=== PATIENT | male | born 1945 | race Caucasian/White ===

== ENCOUNTER → 2017-10-11 10:39 | Outpatient (CLI) | payer MEDICARE, OTHER, SELFPAY ==
--- NOTE | 2017-10-11 10:47 | CDU_ITS ---
Reason For Study: Carotid stenosis Rt. Velocities/BP Lt. Velocities/BP Prox CCA 61.6/12.3 cm/sec. Prox CCA 87.4/25.8 cm/sec. Mid CCA 58.0/12.3 cm/sec. Mid CCA 79.7/24.0 cm/sec. Dist CCA 53.9/11.7 cm/sec. Dist CCA 77.4/21.7 cm/sec. Prox ECA 103.0/18.2 cm/sec. Prox ICA 146.0/58.9 cm/sec. Rt. Vert. 58.0/21.1 cm/sec. Mid ICA 141.0/56.0 cm/sec. Dist ICA 102.0/37.5 cm/sec. Lt. ICA/CCA = 1.8. Prox ECA 93.8/18.2 cm/sec. Lt. Vert. 34.0/11.7 cm/sec. Right Extracranial There is intimal thickening but no significant atherosclerotic plaque noted in the right common carotid artery. The right internal carotid artery is occluded. There is heterogeneous, irregular atherosclerotic plaque noted in the right external carotid artery. Antegrade flow is noted in the right vertebral artery. Left Extracranial There is intimal thickening but no significant atherosclerotic plaque noted in the left common carotid artery. There is heterogeneous, irregular atherosclerotic plaque noted in the left internal carotid artery. There is intimal thickening but no significant atherosclerotic plaque noted in the left external carotid artery. Antegrade flow is noted in the left vertebral artery. Procedure Carotid Duplex [id number]. Exam performed in department. Interpretation Summary Moderate (50-69%) stenosis left extracranial internal carotid. Flow within the vertebral arteries is antegrade bilaterally. Right internal carotid artery is occluded. Ordering Physician: El Durham Referring Physician: Heike Payne M.D. Performed By: Kayleen Jhaveri RVT
== END ==
PROVIDERS: Family Provider Internal Medicine; PCP Internal Medicine
DX: I65.23 Occlusion and stenosis of bilateral carotid arteries (principal)
CPT/HCPCS: 93880

== ENCOUNTER → 2018-09-17 10:17 | Outpatient (CLI) | payer MEDICARE, OTHER, SELFPAY ==
--- NOTE | 2018-09-17 10:30 | CDU_ITS ---
Reason For Study: Stenosis/Occlussion Rt. Velocities/BP Lt. Velocities/BP Prox CCA 54.6/5.89 cm/sec. Prox CCA 80.3/21.1 cm/sec. Mid CCA 50.7/7.86 cm/sec. Mid CCA 80.3/24.6 cm/sec. Dist CCA 34.2/6.29 cm/sec. Dist CCA 58.6/17.6 cm/sec. Prox ECA 94.4/9.38 cm/sec. Prox ICA 142/47.1 cm/sec. Rt. Vert. 78.6/18.8 cm/sec. Mid ICA 151/50.1 cm/sec. Dist ICA 101/35.4 cm/sec. Lt. ICA/CCA = 1.88. Prox ECA 90.9/13.5 cm/sec. Lt. Vert. 54.6/13 cm/sec. Right Extracranial There is intimal thickening but no significant atherosclerotic plaque noted in the right common carotid artery. The right internal carotid artery is occluded. There is heterogeneous, irregular atherosclerotic plaque noted in the right external carotid artery. Antegrade flow is noted in the right vertebral artery. Left Extracranial There is intimal thickening but no significant atherosclerotic plaque noted in the left common carotid artery. There is heterogeneous, irregular atherosclerotic plaque noted in the left internal carotid artery. There is intimal thickening but no significant atherosclerotic plaque noted in the left external carotid artery. Antegrade flow is noted in the left vertebral artery. Procedure Carotid Duplex [id number]. Exam performed in department. Interpretation Summary 1. Right ICA occluded. Moderate (50-69%) stenosis left extracranial internal carotid. Flow within the vertebral arteries is antegrade bilaterally. Ordering Physician: ALISA HARRIS Referring Physician: Heike Payne M.D. Performed By: Kayleen Jhaveri RVT and Student
== END ==
PROVIDERS: Family Provider Internal Medicine; PCP Internal Medicine
DX: I65.23 Occlusion and stenosis of bilateral carotid arteries (principal)
CPT/HCPCS: 93880

== ENCOUNTER → 2019-01-10 14:05 | Outpatient (CLI) | payer MEDICARE, OTHER, SELFPAY ==
[2019-01-01 13:22] VITALS: BMI 24.3
[2019-01-07 08:43] LABS: ALB/GLOB Ratio 1.3 RATIO (0.9-2.4); AST(SGOT) 13 U/L (15-37); Alanine Aminotransfer ALT/SGPT 17 U/L (16-61); Albumin, Serum 3.8 g/dL (3.2-5.0); Alkaline Phosphatase 88 U/L (45-117); Anion Gap 5 (5-15); BUN 13 mg/dL (7-18); BUN/Creat Ratio 12.7 RATIO (10-20); Calcium,Total 8.4 mg/dL (8.5-10.1); Chloride 107 mmol/L (98-107); Cholesterol 115 mg/dL (200); Creatinine, Serum 1.02 mg/dL (0.70-1.30); EST Glomerular Filtration Rate 76 mL/min (>60); Est Glom Filt Rate - Afr Amer 92 mL/min (>60); Free T3 2.5 pg/mL (2.18-3.98); Glucose 101 mg/dL (74-106); High Density Lipoprotein 53 mg/dL; Potassium 3.5 mmol/L (3.5-5.1); Protein, Total 6.8 g/dL (6.4-8.2); Sodium Level 142 mmol/L (136-145); T4 Total, Thyroxin 9.2 ug/dL (4.5-12.1); Thyroid Stim Hormone (TSH) 3.86 uIU/mL (0.358-3.74); Triglycerides 54 mg/dL; Very Low Density Lipoprotein 11 mg/dL (5-40)
--- NOTE | 2019-01-10 14:08 | CT_ITS ---
STUDY: CTA CHEST REASON FOR EXAM: Male, 74 years old. Ascending aortic aneurysm RADIATION DOSAGE (If Supplied By Facility): CTDIvol = ( 12.30 ) mGy, DLP = ( 423.90 ) mGycm TECHNIQUE: The examination was performed with the intravenous administration of 100ML IV Isovue 370. Post-processing of the angiographic images was performed, with multiplanar reformation and 3D reconstruction. Individualized dose optimization techniques were used for this CT. COMPARISON: Prior chest radiograph of October 14, 2015 FINDINGS: Normal enhancement of the main pulmonary artery and right and left pulmonary arteries. Normal enhancement of the bilateral peripheral pulmonary arteries. There is no demonstrated pulmonary embolism. Mild calcified plaque and elongation of the thoracic aorta. The diameter of the ascending aorta is 4 cm. The diameter of the mid arch is 2.8 cm. The diameter of the posterior arch/proximal ascending aorta is 2.8 cm. Negative for aneurysmal dilatation of the remaining descending aorta There is no demonstrated aortic dissection. Normal heart and pericardium. Coronary calcifications. Normal mediastinum. Normal hilar regions. Diffuse emphysematous changes changes. Multifocal areas of linear/curvilinear scarring at the lung bases not substantially changed on the right. Reduced linear opacities at the left lung base with a similar pattern. Negative for new consolidation or pleural effusion. Negative for pulmonary nodules or masses. Normal chest wall structures. There are degenerative changes of thoracic spine. Numerous stable simple cysts of the liver. CT/CTA Chest W/WO Contrast IMPRESSION: Stable appearance of the aneurysmal dilatation of the ascending aorta. The maximum diameter is 4 cm and is unchanged on [id number] comparison to the prior exam. Note that the prior measurement of 4.5 x 3.9 cm was exaggerated by motion artifact. Coronary calcifications. Negative for pulmonary embolus. Generalized emphysematous changes and chronic linear changes of the bilateral lower lobes similar to the prior exam. Negative for new consolidation, pleural effusion, pulmonary nodules or masses. Stable multiple simple cysts of the liver. Electronically Signed: Martine Almazan MD at 16:14 EDT , Service support ,
== END ==
PROVIDERS: Family Provider Internal Medicine; PCP Internal Medicine; Referring Provider Specialist; Visit Provider Specialist
DX: I71.2 Thoracic aortic aneurysm, without rupture (principal); E78.5 Hyperlipidemia, unspecified; E03.9 Hypothyroidism, unspecified; Z95.5 Presence of coronary angioplasty implant and graft
CPT/HCPCS: 36415; 71275; 80053; 80061; 84436; 84443; 84481; Q9967

== ENCOUNTER → 2020-06-07 10:47 | Outpatient (CLI) | payer MEDICARE, OTHER, SELFPAY ==
[2019-01-01 13:22] VITALS: BMI 24.3
--- NOTE | 2020-06-07 10:52 | CDU_ITS ---
Reason For Study: CAROTID STENOSIS Rt. Velocities/BP Lt. Velocities/BP Prox CCA 57.0/8.7 cm/sec. Prox CCA 81.2/19.7 cm/sec. Mid CCA 53.7/9.8 cm/sec. Mid CCA 95.2/20.4 cm/sec. Dist CCA 52.6/10.9 cm/sec. Dist CCA 77.6/13.8 cm/sec. KNOWN SAÚL OCCLUSION. Prox ICA 138.6/34.5 cm/sec. Prox ECA 112.5/14.2 cm/sec. Mid ICA 149.0/43.1 cm/sec. Rt. Vert. 50.0/16.9 cm/sec. Dist ICA 206.9/53.3 cm/sec. Lt. ICA/CCA = 206.9/95.2=2.2. Prox ECA 96.3/9.5 cm/sec. Lt. Vert. 59.1/13.8 cm/sec. Right Extracranial There is intimal thickening but no significant atherosclerotic plaque noted in the right common carotid artery. The right internal carotid artery is occluded (since 2010). There is no significant atherosclerotic plaque noted in the right external carotid artery. Antegrade flow is noted in the right vertebral artery. There is heterogeneous, irregular atherosclerotic plaque noted in the right bulb. Left Extracranial There is intimal thickening but no significant atherosclerotic plaque noted in the left common carotid artery. There is heterogeneous, irregular atherosclerotic plaque noted in the left internal carotid artery. There is no significant atherosclerotic plaque noted in the left external carotid artery. Antegrade flow is noted in the left vertebral artery. There is heterogeneous, irregular atherosclerotic plaque noted in the left bulb. Procedure Carotid Duplex [id number]. The exam was diagnostic. Exam performed in department. Interpretation Summary The right internal carotid artery appears to be totally occluded. Moderate (50-69%) stenosis left extracranial internal carotid. Flow within the vertebral arteries is antegrade bilaterally. Ordering Physician: ALISA HARRIS Referring Physician: Heike Payne Performed By: Ani Deras, DALILA, RVT
== END ==
PROVIDERS: PCP Internal Medicine
DX: I65.23 Occlusion and stenosis of bilateral carotid arteries (principal)
CPT/HCPCS: 93880

== ENCOUNTER → 2020-12-24 13:19 | Outpatient (CLI) | payer MEDICARE, OTHER, SELFPAY ==
[2019-01-01 13:22] VITALS: BMI 24.3
--- NOTE | 2020-12-24 13:22 | CT_ITS ---
STUDY: CTA CHEST REASON FOR EXAM: Male, 75 years old. TAA -- 500 mL NS Bolus [address] RADIATION DOSAGE (If Supplied By Facility): CTDIvol = ( 21.45 ) mGy, DLP = ( 1047.63 ) mGycm TECHNIQUE: The examination was performed with the intravenous administration of IV 75mL Isovue-300. Post-processing of the angiographic images was performed, with multiplanar reformation and 3D reconstruction. Individualized dose optimization techniques were used for this CT. COMPARISON: 01/10/2019 FINDINGS: Normal enhancement of the main pulmonary artery and right and left pulmonary arteries. Normal enhancement of the bilateral peripheral pulmonary arteries. There is no demonstrated pulmonary embolism. Normal thoracic aorta and visualized great vessels. There is no demonstrated aortic dissection. Normal heart and pericardium. Sternal cerclage wires and vascular clips are present from a prior sternotomy and coronary artery bypass graft procedure (CABG). Normal mediastinum. Normal hilar regions. Normal visualized trachea and bronchi. The lungs are well expanded. Mild emphysematous changes. Mild bibasilar linear scarring. No noncalcified nodule or mass. Normal pleura. Normal chest wall structures. Normal osseous structures. Normal visualized upper abdomen. CT/CTA Chest W/WO Contrast IMPRESSION: Normal CTA chest examination, without a demonstrated pulmonary embolism or arterial dissection. No change from 01/10/2019 Electronically Signed: Bradley Cantor MD at 12:29 EDT Tel , Service support ,
[2020-12-24 13:44] VITALS: BP 133/78; PULSE 58; RESP 18; O2SAT 93; BMI 26.5
== END ==
PROVIDERS: PCP Internal Medicine; Referring Provider Specialist; Visit Provider Specialist
DX: Z01.812 Encounter for preprocedural laboratory examination (principal); I71.2 Thoracic aortic aneurysm, without rupture
CPT/HCPCS: 71275; J7040; Q9967

== ENCOUNTER → 2021-01-26 07:03 | Outpatient (CLI) | payer MEDICARE, OTHER, SELFPAY ==
[2020-12-28 10:57] VITALS: BMI 26.5
--- NOTE | 2021-01-26 07:05 | ART_ITS ---
Reason For Study: decreased pedal pulses Procedure A bilateral lower extremity continuous wave Doppler with analog waveform analysis,segmental pressures,and ankle brachial indexes without exercise. Left Segmental Pressures Left brachial= 143mmHg. Left posterior tibial artery = 147mmHg. Left dorsalis pedis artery = 138mmHg. The left dorsalis pedis waveforms are triphasic. The left posterior tibial artery waveforms are triphasic. Right Segmental Pressures Right brachial= 146mmHg. Right posterior tibial artery = 148mmHg. Right dorsalis pedis artery = 137mmHg. The right dorsalis pedis waveforms are triphasic. The right posterior tibial artery waveforms are triphasic. Indices The right ankle brachial index by the posterior tibial artery is 1.01. The right ankle brachial index by the dorsalis pedis is .94. The left ankle brachial index by the posterior tibial artery is 1.01. The left ankle brachial index by the dorsalis pedis is .95. VL/Lower Ext Art Exam w/o Exercis Interpretation Summary Bilateral lower extremities with triphasic flow noted at the ankle with an AMANDA 1.01 bilaterally. Ordering Physician: Shilpi Ha Performed By: MAI WILSON RVT
--- NOTE | 2021-01-26 14:38 | STRESSREP_ITS ---
Stress Test Report Date: 01-26-2021 Procedure: Pharmacologic stress nuclear imaging study Indications: CAD; PCI; PAD Consent: Per the patient Procedure: The patient underwent pharmacologic (Regadenoson 0.4mg ) evaluation with a peak heart rate of 99 beats per minute (67%predicted maximal heart rate) and a peak blood pressure of 140/82 mmHg. The baseline ECG demonstrated sinus rhythm; incomplete right bundle branch block. The peak pharmacologic ECG demonstrated no obvious ECG changes. There were no cardiac dysrhythmias pretest, during pharmacologic infusion, or recovery. There was no complaint of chest discomfort during pharmacologic infusion or recovery. The examination was discontinued secondary to completion of protocol. Impression: 1. Pharmacologic (Regadenoson) evaluation 2. Peak pharmacologic ECG with no obvious ECG changes. 3. There were no cardiac dysrhythmias pretest, during pharmacologic infusion, or recovery. 4. Nuclear images pending Myocardial perfusion imaging study: Technique: The patient was injected with 11.0 millicuries of technetium 99m Cardiolite and subsequently rest SPECT Cardiolite nuclear imaging was obtained in the horizontal long, vertical long, and short axis views. The patient underwent pharmacologic (Regadenoson) evaluation with a peak heart rate of 99 beats per minute (67% percent predicted maximal heart rate) and a peak blood pressure of 140/82 mmHg. The patient was injected with 32.8 millicuries of technetium 99m Cardiolite and subsequently stress SPECT Cardiolite nuclear imaging was obtained in the horizontal long, vertical long, and short axis views. A gated Cardiolite study at peak stress was obtained. Interpretation: Rest and stress SPECT Cardiolite nuclear imaging status post realignment, normalization, and attenuation correction demonstrate relative uniform tracer uptake and myocardial perfusion appearing within normal limits. There is end systolic thickening and brightening. The gated Cardiolite study demonstrates myocardial thickening and inward wall motion. The reported LVEF is 69%. Impression: 1. Rest and stress SPECT Cardiolite nuclear imaging demonstrate relative uniform tracer uptake and myocardial perfusion appearing within normal limits. 2. The gated Cardiolite study reports an LVEF of 69%. This note was generated with [employer] software. It may contain incorrect words, spelling, and punctuation that were not noted in checking the note before signing.
== END ==
PROVIDERS: PCP Internal Medicine; Referring Provider Physician Assistant Medical; Visit Provider Physician Assistant Medical
DX: I25.10 Atherosclerotic heart disease of native coronary artery without angina pectoris (principal); I73.9 Peripheral vascular disease, unspecified; I10 Essential (primary) hypertension; E78.5 Hyperlipidemia, unspecified; Z95.5 Presence of coronary angioplasty implant and graft
CPT/HCPCS: 78452; 93017; 93923; A9500; A4216; J2785

== ENCOUNTER → 2021-04-12 09:45 | Outpatient (CLI) | payer OTHER, MEDICARE, SELFPAY ==
--- NOTE | 2021-04-12 09:47 | US_ITS ---
STUDY: RENAL ULTRASOUND - COMPLETE REASON FOR EXAM: Male, 76 years old. CKD TECHNIQUE: Ultrasound evaluation of the kidneys was performed with real-time and static john-scale imaging. COMPARISON: None. FINDINGS: RIGHT KIDNEY: Normal location of the right kidney, which is normal in size. The right kidney measures 9.7 cm x 5.7 cm x 5.6 cm. There is a normal cortex of the right kidney. The renal cortex measures 1.4 cm. There are 2 right renal cysts. The larger measures 1.2 cm x 1.2 cm x 1.4 cm. There are no right renal calculi. There is no right hydronephrosis. DISTAL RIGHT URETER: There is non-visualization of the distal right ureter. There is no demonstrated right ureterovesical junction calculus. There is a visualized right ureteral jet. LEFT KIDNEY: Normal location of the left kidney, which is normal in size. The left kidney measures 11.2 cm x 5.2 cm x 4.6 cm. There is a normal cortex of the left kidney. The renal cortex measures 1 cm. There is no left renal mass or cyst. There are no left renal calculi. There is an extra-renal pelvis of the left kidney. There is no distention of the renal calyces. DISTAL LEFT URETER: There is non-visualization of the distal left ureter. There is no demonstrated left ureterovesical junction calculus. There is a visualized left ureteral jet. BLADDER: The distended urinary bladder has a volume of 140 ml. There is a normal wall thickness of the distended urinary bladder. There is no demonstrated mass within the urinary bladder. There are no demonstrated bladder calculi. US/Kidney and Bladder IMPRESSION: There are 2 small right renal cysts. Electronically Signed: Alexsander Mcclain MD at 13:32 EDT , Service support ,
== END ==
PROVIDERS: PCP Internal Medicine
DX: N18.30 Chronic kidney disease, stage 3 unspecified (principal)
CPT/HCPCS: 76770

== ENCOUNTER → 2021-09-08 10:42 | Outpatient (CLI) | payer MEDICARE, OTHER, SELFPAY ==
--- NOTE | 2021-09-08 10:52 | CDU_ITS ---
Reason For Study: Stenosis Rt. Velocities/BP Lt. Velocities/BP Prox CCA 53.9/8.2 cm/sec. Prox CCA 63.9/16 cm/sec. Mid CCA 42.1/8.2 cm/sec. Mid CCA 66.3/21.2 cm/sec. Dist CCA 35.5/8 cm/sec. Dist CCA 56.1/18.6 cm/sec. Rt ICA Known Occlusion. Prox ICA 53.5/22.1 cm/sec. Prox ECA 89.3/16.8 cm/sec. Mid ICA 102.3/39.7 cm/sec. Rt. Vert. 70.9/22.9 cm/sec. Dist ICA 93.7/31.6 cm/sec. Lt. ICA/CCA = 1.60. Prox ECA 71.8/10.7 cm/sec. Lt. Vert. 31.5/9.7 cm/sec. Right Extracranial There is homogeneous, smooth atherosclerotic plaque noted in the right common carotid artery. There is heterogeneous, irregular atherosclerotic plaque noted in the right internal carotid artery. The right internal carotid artery is occluded. There is intimal thickening but no significant atherosclerotic plaque noted in the right external carotid artery. Antegrade flow is noted in the right vertebral artery. Left Extracranial There is homogeneous, smooth atherosclerotic plaque noted in the left common carotid artery. There is heterogeneous, irregular atherosclerotic plaque noted in the left internal carotid artery. There is intimal thickening but no significant atherosclerotic plaque noted in the left external carotid artery. Antegrade flow is noted in the left vertebral artery. Procedure Carotid Duplex 45710. This is a Carotid Duplex examination using B-mode, color flow and specral Doppler. Unable to duplicate velocities as compared to previous exams. Exam performed in department. VL/Carotid Duplex Ultrasound Interpretation Summary The right internal carotid artery appears to be totally occluded. Mild (<50%) s tenosis left extracranial internal carotid. Flow within the vertebral arteries is antegrade bilaterally. Ordering Physician: ALISA HARRIS Referring Physician: Heike Payne M.D. Performed By: Kylee Beaver RVT
== END ==
PROVIDERS: PCP Internal Medicine
DX: I65.23 Occlusion and stenosis of bilateral carotid arteries (principal)
CPT/HCPCS: 93880

== ENCOUNTER → 2022-01-02 | Outpatient (CLI) | payer MEDICARE, OTHER, SELFPAY ==
--- NOTE | 2022-01-02 13:00 | CT_ITS ---
STUDY: CTA CHEST REASON FOR EXAM: Male, 76 years old. Thoracic aortic aneurysm without rupture RADIATION DOSAGE (If Supplied By Facility): CTDIvol = ( 12.64 ) mGy, DLP = ( 536.41 ) mGycm TECHNIQUE: The examination was performed with the intravenous administration of IV 100mL Isovue-370. Post-processing of the angiographic images was performed, with multiplanar reformation and 3D reconstruction. Individualized dose optimization techniques were used for this CT. COMPARISON: 12/24/2020 FINDINGS: 5 cm lipoma in the left chest wall is unchanged. Normal enhancement of the main pulmonary artery and right and left pulmonary arteries. Normal enhancement of the bilateral peripheral pulmonary arteries. There is no demonstrated pulmonary embolism. Normal thoracic aorta and visualized great vessels. There is no demonstrated aortic dissection. Normal heart and pericardium. Normal mediastinum. Normal hilar regions. Normal visualized trachea and bronchi. The lungs are well expanded. Mild emphysema. No noncalcified nodule or mass. Normal pleura. Normal chest wall structures. Normal osseous structures. Normal visualized upper abdomen. CT/CTA Chest W/WO Contrast IMPRESSION: Normal CTA chest examination, without a demonstrated pulmonary embolism or arterial dissection. Electronically Signed: Bradley Cantor MD at 17:49 EDT ,
[2022-01-02 13:06] LABS: CREATININE FINGERSTICK < 0.9 mg/dL (0.70-1.30); EGFR FINGERSTICK > 60.0000 mL/min (>60)
== END | disposition home or self-care (01) ==
LOC: CT 12:45
PROVIDERS: PCP Internal Medicine; Referring Provider Internal Medicine Cardiovascular Disease; Visit Provider Internal Medicine Cardiovascular Disease
DX: I71.2 Thoracic aortic aneurysm, without rupture (principal)
CPT/HCPCS: 71275; Q9967

== ENCOUNTER 2022-06-23 13:02 | Inpatient (IN) | payer MEDICARE, OTHER, SELFPAY ==
[2022-06-23] VITALS (10 sets, daily range): BP systolic 127–180; BP diastolic 74–140; PULSE 56–64; RESP 14–18; TEMP 36.3–36.8; O2SAT 92–96; BMI 23.8; BMI 23.6
--- NOTE | 2022-06-23 13:17 | ED.RN ---
PT PRESENTS WITH NEURO S/SX. NIH PERFORMED BY THIS RN AND PT HAD DRIFT IN FROY LOWER EXTREMITY AND DECREASED SENSATION TO RIGHT SIDE. DR. MAURER NOTIFIED AT THIS TIME.
--- NOTE | 2022-06-23 13:25 | CT_ITS ---
STUDY: CTA HEAD AND NECK WITH CONTRAST REASON FOR EXAM: Male, 77 years old. Neuro deficit, acute, stroke suspected RADIATION DOSAGE (If Supplied By Facility): CTDIvol = ( 23.26 ) mGy, DLP = ( 660.51 ) mGycm TECHNIQUE: CT angiography was performed with a multi-detector CT scanner. Data acquisition was obtained from the skull base through the vertex following intravenous administration of IV 100mL Isovue-370. MIP images were reconstructed from the axial data set. Post-processing of the angiographic images was performed, with multiplanar reformation and 3D reconstruction. Individualized dose optimization techniques were used for this CT. COMPARISON: No relevant priors. FINDINGS: Normal bilateral petrous carotid arteries. Nonvisualization of the right cavernous carotid artery. There is calcified plaque formation of the left cavernous carotid artery, without a cross-sectional luminal stenosis. Normal right A1 segments of the anterior cerebral artery. Normal left A1 segments of the anterior cerebral artery. Normal intact anterior communicating artery (ACOM). Normal bilateral A2 segments of the anterior cerebral arteries. Normal right M1 and M2 segments of the middle cerebral arteries, with a normal M1 bifurcation. Normal left M1 and M2 segments of the middle cerebral arteries, with a normal M1 bifurcation. Normal right posterior communicating artery (PCOM). Normal left posterior communicating artery (PCOM). Normal bilateral vertebral arteries. Normal basilar artery with a normal basilar bifurcation. The visualized bilateral superior cerebellar (SCA) arteries are normal. Normal bilateral P1, P2 and visualized P3 segments of the posterior cerebral arteries. There is no demonstrated aneurysm of the [place]. There is no demonstrated abnormality of the visualized brain. AORTIC ARCH: There is atherosclerotic calcific plaque formation of the aortic arch and great vessels arising from the aortic arch, without a hemodynamically significant stenosis. There is a normal origin of the brachiocephalic, left common carotid, and left subclavian arteries. Plaque formation at the origin of the left subclavian artery and right brachiocephalic artery. RIGHT CAROTID ARTERIES: Normal right common carotid artery (CCA). Normal right common carotid bulb. There is complete occlusion of the origin of the right internal carotid artery without demonstrated arterial flow. Normal visualized cervical portion of the right internal carotid artery. Normal origin of the right external carotid artery (ECA). LEFT CAROTID ARTERIES: Normal left common carotid artery (CCA). Normal left common carotid bulb. There is mild atherosclerotic plaque formation of the origin of the left internal carotid artery with less than 50% cross sectional diameter stenosis. Normal visualized cervical portion of the left internal carotid artery. Normal origin of the left external carotid artery (ECA). VERTEBRAL ARTERIES: There is enhancement within the bilateral vertebral arteries with a small left vertebral artery, and a dominant right vertebral artery. CT/STROKE CTA Head AND Neck W/Con IMPRESSION: There is occlusion of the right internal carotid artery just distal to the carotid bifurcation. The right intracerebral branches are filled from the left internal carotid artery. N.B. : The above Results were Read Back by Alexsander Mcclain MD to Dimas Salazar DO, and understanding confirmed on 06/23/2022 14:09:07 (ET). Electronically Signed: Alexsander Mcclain MD at 14:11 EST ,
--- NOTE | 2022-06-23 13:25 | CT_ITS ---
STUDY: CT HEAD STROKE PROTOCOL W/O CONTRAST INJECTION REASON FOR EXAM: Male, 77 years old. Neuro deficit, acute, stroke suspected RADIATION DOSAGE (If Supplied By Facility): CTDIvol = ( 44.99 ) mGy, DLP = ( 846.73 ) mGycm TECHNIQUE: Transaxial CT imaging of the brain was performed without administration of intravenous contrast material. Individualized dose optimization techniques were used for this CT. COMPARISON: No relevant priors. FINDINGS: Normal soft tissue structures. Normal calvarium. There is moderate cerebral atrophy with widening of the extra-axial spaces and ventricular dilatation. There are areas of decreased attenuation within the white matter tracts of the supratentorial brain, consistent with microvascular disease changes. Normal basal ganglia and thalami. Normal brainstem. Normal cerebellum. There is no intracranial hemorrhage. There are no findings of an acute ischemic infarction. Atherosclerotic calcification of the cavernous portions of the internal carotid arteries and vertebral arteries. Normal visualized paranasal sinuses. ASPECT score: 10 CT/STROKE Brain/Head without Cont IMPRESSION: Chronic involutional changes of the brain. N.B. : The above Results were Read Back by Alexsander Mcclain MD to Dr Paul DO, and understanding confirmed on 06/23/2022 13:59:17 (ET). Electronically Signed: Alexsander Mcclain MD at 14:00 EST ,
--- NOTE | 2022-06-23 13:25 | EKG12_ITS ---
Test Reason : Blood Pressure : / mmHG Vent. Rate : 056 BPM Atrial Rate : 000 BPM P-R Int : 000 ms QRS Dur : 102 ms QT Int : 460 ms P-R-T Axes : 000 -40 003 degrees QTc Int : 443 ms Sinus rhythm Left axis deviation Abnormal ECG Confirmed by HARDIK VELAZQUEZ, HARMAN ([id number]), editor in chief JESSE JIMENEZ ([id number]) on 06/27/2022 11:05:59 AM Referred By: ERASTO Confirmed By:WENDY DYE MD
--- NOTE | 2022-06-23 13:27 | ED.VIS.STROK ---
HPI History of Present Illness Chief Complaint: Stroke Alert Narrative Narrative: 77-year-old male presenting with acute onset dizziness which started at about 1730 last evening. He states the dizziness is progressive. He states that [facility] He states that while he was there they were ambulating him in the hallway and he had an unsteady gait. He presents with a very mild headache he says. He states his vision is blurry, and he sees floaters. He reports that the floor looks like it is moving. He denies any head trauma. He states that he has diminished sensation on the left leg, diminished sensation in the right arm, diminished sensation in the left side of his face. He does not have any facial droop, slurred speech. He denies chest pain or shortness of breath. He reports that he has a history of 100% occlusion of his carotid artery on the right and a 75% occlusion on the left. He states that the vascular supply from the left supplying the blood to his brain. He states that he follows up with the [place] for this. He has not had any carotid surgeries. [facility] Medical History Alopecia Anxiety Atherosclerosis of coronary artery of [place] heart without angina pectoris Carotid artery occlusion (~06/2011) Cerebellar atrophy Claudication of both lower extremities Depression Disorder of bone and cartilage Essential hypertension Fatigue Hearing loss in left ear History of hepatitis C Hyperlipidemia Hypothyroidism Myocardial infarction, old Nonruptured zhang aneurysm Psychophysiological insomnia Snoring Thoracic aortic aneurysm without rupture (~10/13/15) Vertebral artery aneurysm (~06/2011) Vertigo Home Medications losartan 100 mg tablet 100 mg PO DAILY 10/14/15 [History Last Taken 10/14/15] amlodipine 10 mg tablet 10 mg PO DAILY 12/04/18 [History Last Taken Unknown] aspirin 81 mg chewable tablet 81 mg PO BID 12/04/18 [History Last Taken Unknown] atorvastatin 40 mg tablet 40 mg PO QHS 12/04/18 [History Last Taken Unknown] famotidine 40 mg tablet 40 mg PO BID 12/04/18 [History Last Taken Unknown] levothyroxine 50 mcg tablet 50 mcg PO DAILY 12/04/18 [History Last Taken Unknown] nitroglycerin 0.4 mg sublingual tablet 0.4 mg sublingual Q5-15M PRN Chest Pain 12/04/18 [History Last Taken Unknown] fluticasone propionate 50 mcg/actuation nasal spray,suspension (Flonase Allergy Relief) 2 spray intranasal DAILY PRN seasonal allergies 12/30/19 [History Last Taken Unknown] trazodone 100 mg tablet 200 mg PO QHS 12/30/19 [History Last Taken Unknown] clonazepam 1 mg tablet 1 mg PO BID PRN Insomnia 07/04/21 [History Last Taken Unknown] Allergy/AdvReac Type Severity Reaction Status Date / Time No Known Allergies Allergy Verified 06/23/22 13:02 Family History Father CHF (congestive heart failure) Mother Cancer stomach Surgical History Benign neoplasm of large bowel History of hemorrhoidectomy Presence of stent in coronary artery Social History Smoking Status: Former smoker how long ago did patient quit smokin years ago alcohol intake: never substance use type: does not use caffeine: Yes Type: coffee Number of servings: 5 ROS ROS ED Constitutional Constitutional ED: Denies chills or fever(s) Eyes Eyes: Reports change in vision bilateral ENT ENT ED: Denies rhinorrhea or sore throat Cardiovascular Cardiovascular: Denies chest pain or palpitations Respiratory/Chest Respiratory/Chest: Denies cough or dyspnea Gastrointestinal Gastrointestinal: Denies abdominal pain, nausea or vomiting Genitourinary Genitourinary ED: Denies dysuria or hematuria Musculoskeletal Musculoskeletal: Denies arthralgias or back pain Integumentary Denies abscess Neurologic Neurologic: Reports headache(s) and paresthesias RUE and LLE Psychiatric Psychiatric: Denies anxiety or depression EXAM Physical Exam Const Vital Signs: 06/23/22 13:03 06/23/22 13:25 06/23/22 13:46 Temperature 97.3 F L 97.3 F L Temperature Source Temporal Temporal Pulse Rate 56 L 60 Respiratory Rate 14 18 Blood Pressure 158/96 H 148/104 H Blood Pressure Mean 116 118 Pulse Ox 95 96 Oxygen Delivery Method Room Air Room Air Room Air 06/23/22 13:55 06/23/22 14:02 06/23/22 15:00 Temperature Temperature Source Pulse Rate 59 L 61 61 Respiratory Rate 16 16 16 Blood Pressure 148/104 H 155/121 H 127/103 H Blood Pressure Mean 118 132 111 Pulse Ox 95 92 92 Oxygen Delivery Method Room Air Room Air Room Air Positive well nourished HEENT Reports moist mucous membranes and dry mucous membranes Mouth ED: Yes dry mucous membranes Mouth: dry mucous membranes Eyes PERRL and EOMs intact bilaterally General Eye ED: Negative for pale conjunctiva or scleral icterus Neck no lymphadenopathy Chest Wall inspection of chest normal and palpation of chest normal Resp normal respiratory effort and clear to auscultation bilaterally Auscultation: Negative for rales, rhonchi or wheezes Cardio Rate: bradycardia Rhythm: regular rhythm GI normal to inspection, nondistended, normoactive bowel sounds Neuro oriented x3 and CN's II-XII intact bilaterally Sensorium / Orientation: alert Speech: speech normal Motor Exam: strength 5/5 throughout Psych mental status grossly normal NIHSS NIHSS Initial: 1a Level of Consciousness: 0 1b LOC Questions (Score 2 if aphasic/stupor): 0 1c LOC Commands (Only score 1st attempt): 0 2 Best Gaze (If aphasic, use reflexive mvmts.): 0 3 Visual: 0 4 Facial Palsy: 0 5 Motor Arm Right (UN = amputation/fusion): 0 5 Motor Arm Left: 0 6 Motor Leg Right: 0 6 Motor Leg Left: 0 7 Limb ataxia (Only + if out of proportion): 0 8 Sensory (Aphasia/stupor=0 or 1, coma=2): 1 9 Best Language: 0 10 Dysarthria (mute, coma=2, intubated=UN): 0 11 Extinction and Inattention (only scored if +): 0 Total Score: 1 MDM MDM MDM Narrative Medical decision making narrative: Patient presenting with visual floaters, blurred vision, feeling off balance. He states the floor looks like it swirling around. He has a mild occipital headache. Initial NIH stroke scale score of 1 for me however the nursing staff stated that he had an NIH stroke scale score of 3 for them when I initially saw him. I had only followed them by a couple of minutes. After he told me that he has history of carotids stenosis with 100% on the right and 75% on the left I did send him down for CT to obtain a CT brain and CTA. These were ultimately interpreted as no interval change. Chest x-ray on my interpretation shows no acute cardiopulmonary process and radiologist interpretation agrees. CBC, BMP within normal limits. Coagulation studies were normal. High-sensitivity troponin is 9. EKG on my interpretation shows a sinus rhythm with a ventricular rate of 56 bpm without sign of ischemic change or dysrhythmia. There is T wave inversion in lead III. Patient does not report any chest pain or shortness of breath. Stroke neurologist at [facility] in and examined the patient. He reviewed the imaging and recommended that the patient stay in the hospital for MRI. He does not think the patient needs transfer to [facility]. Patient is amenable to staying. He was given for 25 mg of aspirin. On reevaluation he states that his symptoms are improving dramatically. He is no longer shaky. He states his dizziness/lightheadedness is improving. Patient discussed with the hospitalist for admission. Impression: 1. Lightheadedness 2. Visual disturbance 3. TIA Lab Data Attestation: I reviewed the patient's lab results. Labs: Laboratory Results - last 24 hr 06/23/22 06/23/22 06/23/22 13:05 13:05 13:05 WBC 8.0 RBC 5.45 Hgb 16.6 H Hct 50.2 MCV 92.1 MCH 30.5 MCHC 33.1 RDW Std Deviation 42.8 RDW Coeff of Jacky 12.7 Plt Count 186 MPV 10.8 Immature Gran % (Auto) 0.400 Neut % (Auto) 67.5 Lymph % (Auto) 23.5 Harrison % (Auto) 6.3 Eos % (Auto) 1.8 Baso % (Auto) 0.5 Absolute Neuts (auto) 5.4 Absolute Lymphs (auto) 1.88 Nucleated RBC % 0 PT 12.7 INR 1.0 APTT 25.7 Sodium 142 Potassium 4.1 Chloride 106 Carbon Dioxide 32.0 Anion Gap 4 L BUN 17 Creatinine 0.95 Estim Creat Clear Calc 69.37 Est GFR (MDRD) Af Amer 99 Est GFR (MDRD) Non-Af 82 BUN/Creatinine Ratio 17.8 Glucose 105 Calcium 9.4 Troponin I High Sens 9 POC Glucose 06/23/22 13:09 WBC RBC Hgb Hct MCV MCH MCHC RDW Std Deviation RDW Coeff of Jacky Plt Count MPV Immature Gran % (Auto) Neut % (Auto) Lymph % (Auto) Harrison % (Auto) Eos % (Auto) Baso % (Auto) Absolute Neuts (auto) Absolute Lymphs (auto) Nucleated RBC % PT INR APTT Sodium Potassium Chloride Carbon Dioxide Anion Gap BUN Creatinine Estim Creat Clear Calc Est GFR (MDRD) Af Amer Est GFR (MDRD) Non-Af BUN/Creatinine Ratio Glucose Calcium Troponin I High Sens POC Glucose 106 Radiography Diagnostic Testing: Clinical Impression(s) from Imaging Studies Brain CT 06/23/22 13:25 IMPRESSION: Chronic involutional changes of the brain. N.B. : The above Results were Read Back by Alexsander Mcclain MD to Dr Paul DO, and understanding confirmed on 06/23/2022 13:59:17 (ET). Electronically Signed: Alexsander Mcclain MD at 14:00 EST , ADDENDUM: 06/23/22 1407 IMPRESSION: Chronic involutional changes of the brain. N.B. : The above Results were Read Back by Alexsander Mcclain MD to Dr Paul DO, and understanding confirmed on 06/23/2022 13:59:17 (ET). Electronically Signed: Alexsander Mcclain MD at 14:00 EST , Head/Neck CTA 06/23/22 13:25 IMPRESSION: There is occlusion of the right internal carotid artery just distal to the carotid bifurcation. The right intracerebral branches are filled from the left internal carotid artery. N.B. : The above Results were Read Back by Alexsander Mcclain MD to Dimas Salazar DO, and understanding confirmed on 06/23/2022 14:09:07 (ET). Electronically Signed: Alexsander Mcclain MD at 14:11 EST , ADDENDUM: 06/23/22 1418 IMPRESSION: There is occlusion of the right internal carotid artery just distal to the carotid bifurcation. The right intracerebral branches are filled from the left internal carotid artery. N.B. : The above Results were Read Back by Alexsander Mcclain MD to Dimas Salazar DO, and understanding confirmed on 06/23/2022 14:09:07 (ET). Electronically Signed: Alexsander Mcclain MD at 14:11 EST , Chest X-Ray 06/23/22 14:25 IMPRESSION: Hyperinflation. No acute abnormality is seen. Electronically Signed: Alexsander Mcclain MD at 15:01 EST , Discharge Plan Triage Chief Complaint: Stroke Alert Other Complaint: Neuro S/Sx ED Provider: Dimas Miller Dx/Rx/DC Orders Primary Care Provider: Heike Payne
[2022-06-23 13:30] LABS: Bedside Glucose 106 mg/dL (74-106)
[2022-06-23 13:33] LABS: Absolute Lymphocyte Count 1.88 X10^3/uL (0.83-4.51); Absolute Neutrophil Count 5.4 X10^3/uL (2.0-7.7); Basophil# 0.04 X10^3/uL; Basophil% 0.5 % (0-1); Eosinophil# 0.14 X10^3/uL; Eosinophils% 1.8 % (0-5); Hematocrit 50.2 % (40-54); Hemoglobin 16.6 g/dL (13.0-16.5); Lymphocyte # 1.88 X10^3/ul (0.83-4.51); Lymphocyte % 23.5 % (19-41); Mean Corp Hgb Conc 33.1 g/dL (32-36); Mean Corpuscular Hgb 30.5 pg (27.0-32.0); Mean Corpuscular Volume 92.1 fL (80-94); Mean Platelet Vol. 10.8 fl (6.2-12.0); Monocyte% 6.3 % (0-10); NRBC Flagged by Analyzer 0 % (0-5); Neutrophil % 67.5 % (47-70); Platelet Count 186 K/mm3 (150-450); RBC Distribution Width CV 12.7 % (11.6-14.6); RBC Distribution Width SD 42.8 fl (35.1-43.9); Red Blood Count 5.45 M/mm3 (4.6-6.2)
[2022-06-23 13:45] LABS: Prothrombin Time (Protime)PT. 12.7 SECONDS (11.7-14.9)
[2022-06-23 13:46] LABS: Partial Thromboplast Time 25.7 Seconds (24.1-36.2)
[2022-06-23 13:52] LABS: Anion Gap 4 (5-15); BUN 17 mg/dL (7-18); BUN/Creat Ratio 17.8 RATIO (10-20); Calcium,Total 9.4 mg/dL (8.5-10.1); Chloride 106 mmol/L (98-107); Creatinine, Serum 0.95 mg/dL (0.70-1.30); EST Glomerular Filtration Rate 82 mL/min (>60); Est Glom Filt Rate - Afr Amer 99 mL/min (>60); Estimated Creatinine Clearance 69.37 ml/min; Glucose 105 mg/dL (74-106); Potassium 4.1 mmol/L (3.5-5.1); Sodium Level 142 mmol/L (136-145); Troponin-I HS 9 pg/mL (3.0-78.0)
--- NOTE | 2022-06-23 14:25 | RAD_ITS ---
STUDY: X-RAY CHEST REASON FOR EXAM: Male, 77 years old. Neuro deficit, acute, stroke suspected TECHNIQUE: Single AP portable view of the chest. COMPARISON: Comparison is made with prior examination dated 08/29/2010. FINDINGS: EKG electrodes are seen. There is hyperinflation of the lungs consistent with chronic obstructive lung disease (COPD). There is no demonstrated pleural abnormality. Normal size heart. Normal mediastinum and rahel. Normal visualized pulmonary arteries. There is atherosclerotic calcification of the aortic arch with tortuosity. There are diffuse degenerative changes of the visualized thoracic spine. Normal visualized ribs, clavicles, and shoulders. There is no demonstrated abnormality of the visualized soft tissue structures of the upper abdomen. RAD/Chest 1 View IMPRESSION: Hyperinflation. No acute abnormality is seen. Electronically Signed: Alexsander Mcclain MD at 15:01 EST ,
--- NOTE | 2022-06-23 14:46 | CHAPLAIN ---
Type of Pastoral Visit ___ Initial Visit ___ Follow-up Visit ___ On-call Visit ___ General Patient Visit ___ Spiritual Assessment ___ Family Conference ___ Bereavement _x__ Rapid Response ___ Code Blue ___ Other (describe below) Pastoral Care Referral From ___ Patient ___ Family ___ Nurse ___ Physician ___ Refractory Repairer ___ Steel Buffer _x__ Other (describe below) Sacrament/Intervention _x__ Active listening ___ Anointing ___ Caodaism ___ Bereavement ___ Communion ___ Meredith exploration ___ ___ Life review ___ Prayer ___ Reconciliation ___ Sacrament of Sick _x__ Supportive presence ___ Wedding ___ Other (describe below) Pastoral Comments came to ED for the stroke alert and found two family members waiting in the room as pt was in CT; offered presence, support to family; family gives details of coming to ED; waited with family until pt returned and introduced self to pt; pt to receive further evaluation at this time and no further intervention needed
--- NOTE | 2022-06-23 15:07 | PCM.HP.STD ---
HPI - General General Date of Admission: 06/23/22 Date of Service: 06/23/22 Chief Complaint: Dizziness, inability to move left leg, distorted vision - 2 days HPI Narrative SHASHANK BOB, is a 77 M who presents with the above. Patient has past medical history of CAD status post stents to the RCA, right-sided total carotid occlusion, moderate disease in the left carotid artery, ascending aortic aneurysm, hypertension, hyperlipidemia who was feeling dizzy at about 5 PM yesterday. He felt that it was probably secondary to vertigo. This persisted throughout the whole day. This morning, he went to the [place] for his [place] booster and realized that he could not move his left leg. He told the physician and his blood pressure was checked and was elevated. [facility] he [facility] in the [facility] and found to be very unsteady. He admitted that his vision was blurred and he was seeing floaters and seen objects shifting. At time of being seen in the ED, he admitted to diminished sensation in his left leg, arm and left side of his face. His vitals in ED showed BP of 158/96, heart rate 56, respiratory 14, temperature 97.3 F, 95 % on room air. His WBC count was 8.3, hemoglobin 16.6, platelet count was 186, INR 1.0, his BMP was unremarkable. Troponin was 9. Initial CT of the brain showed chronic involutional changes. CT of the head and neck showed occlusion of the right internal carotid artery just distal to the carotid bifurcation. Right intracerebral branches are filled from the left internal carotid artery. Chest x-ray shows hyperinflation. No acute abnormality seen. [facility] Medical History Alopecia Anxiety Atherosclerosis of coronary artery of [place] heart without angina pectoris Carotid artery occlusion (~06/2011) Cerebellar atrophy Claudication of both lower extremities Depression Disorder of bone and cartilage Essential hypertension Fatigue Hearing loss in left ear History of hepatitis C Hyperlipidemia Hypothyroidism Myocardial infarction, old Nonruptured zhang aneurysm Psychophysiological insomnia Snoring Thoracic aortic aneurysm without rupture (~10/13/15) Vertebral artery aneurysm (~06/2011) Vertigo Home Medications losartan 100 mg tablet 100 mg PO DAILY Blood pressure 10/14/15 [History Last Taken 06/22/22] amlodipine 10 mg tablet 10 mg PO DAILY heart 12/04/18 [History Last Taken 06/23/22 08:00] aspirin 81 mg chewable tablet 81 mg PO BID blood 12/04/18 [History Last Taken 06/22/22] atorvastatin 40 mg tablet 40 mg PO QHS cholesterol 12/04/18 [History Last Taken 06/22/22] famotidine 40 mg tablet 40 mg PO BID allergies 12/04/18 [History Last Taken 06/23/22] levothyroxine 50 mcg tablet 50 mcg PO DAILY thyroid 12/04/18 [History Last Taken 06/23/22] nitroglycerin 0.4 mg sublingual tablet 0.4 mg sublingual Q5-15M PRN Chest Pain 12/04/18 [History Last Taken Unknown] fluticasone propionate 50 mcg/actuation nasal spray,suspension (Flonase Allergy Relief) 2 spray intranasal DAILY PRN seasonal allergies 12/30/19 [History Last Taken Unknown] trazodone 100 mg tablet 200 mg PO QHS for sleep 12/30/19 [History Last Taken Unknown] clonazepam 1 mg tablet 1 mg PO BID PRN Insomnia 07/04/21 [History Last Taken 06/22/22] Allergy/AdvReac Type Severity Reaction Status Date / Time No Known Allergies Allergy Verified 06/23/22 13:02 Family History Father CHF (congestive heart failure) Mother Cancer stomach Surgical History Benign neoplasm of large bowel History of hemorrhoidectomy Presence of stent in coronary artery Social History Smoking Status: Former smoker how long ago did patient quit smokin years ago alcohol intake: never substance use type: does not use caffeine: Yes Type: coffee Number of servings: 5 ROS ROS Narrative Constitutional: Denies: Anorexia, Chills, Fever, Night Sweats, Weight Change Eyes: Denies: Blurred vision, Cataracts, Conjunctivae Inflammation, Pain, Redness, Vision Change HEENT: Denies: Difficulty Hearing, Difficulty Swallowing, Head Aches, Hearing Changes, Sinus Congestion, Sinus Drainage Cardiovascular: Denies: Chest Pain, Orthopnea, Palpitations Respiratory: Denies: Cough, Shortness of breath at rest, Sputum production Gastrointestinal: Denies: Abdominal Pain, Nausea, Vomiting Genitourinary: Denies: Dysuria Musculoskeletal: Denies: Joint Pain, Joint stiffness, Joint swelling, Joint Tenderness Skin: Denies: Rash, Wounds Neurological: See HPI Vital Signs Vital Signs Vital Signs: 06/23/22 13:03 06/23/22 13:25 06/23/22 13:46 Temperature 97.3 F L 97.3 F L Temperature Source Temporal Temporal Pulse Rate 56 L 60 Respiratory Rate 14 18 Blood Pressure 158/96 H 148/104 H Blood Pressure Mean 116 118 Pulse Ox 95 96 Oxygen Delivery Method Room Air Room Air Room Air 06/23/22 13:55 06/23/22 14:02 Temperature Temperature Source Pulse Rate 59 L 61 Respiratory Rate 16 16 Blood Pressure 148/104 H 155/121 H Blood Pressure Mean 118 132 Pulse Ox 95 92 Oxygen Delivery Method Room Air Room Air Weight Weight: 75.478 kg Body Mass Index (BMI) 23.8 Physical Exam Narrative Physical exam: General: Alert, Oriented x3, Cooperative, HEENT: Atraumatic Oral: Moist Mucosa Neck: Supple Lungs: Clear to auscultation Cardiovascular: HS I+II, regular, no murmurs Abdomen: Bowel Sounds Present, Soft, Non Tender Extremities: No edema Skin: No rashes, No breakdown Neurological: Grossly intact, patient is stable to see fingers but then admits he is seeing floaters and moving images Psych/Mental Status: Appropriate Results Lab / Micro Data Result Diagrams: 06/23/22 13:05 06/23/22 13:05 Labs: Laboratory Results - last 24 hr 06/23/22 13:05: WBC 8.0, RBC 5.45, Hgb 16.6 H, Hct 50.2, MCV 92.1, MCH 30.5, MCHC 33.1, RDW Std Deviation 42.8, RDW Coeff of Jacky 12.7, Plt Count 186, MPV 10.8, Immature Gran % (Auto) 0.400, Neut % (Auto) 67.5, Lymph % (Auto) 23.5, Mcclain % (Auto) 6.3, Eos % (Auto) 1.8, Baso % (Auto) 0.5, Absolute Neuts (auto) 5.4, Absolute Lymphs (auto) 1.88, Nucleated RBC % 0 06/23/22 13:05: PT 12.7, INR 1.0, APTT 25.7 06/23/22 13:05: Sodium 142, Potassium 4.1, Chloride 106, Carbon Dioxide 32.0, Anion Gap 4 L, BUN 17, Creatinine 0.95, Estim Creat Clear Calc 69.37, Est GFR (MDRD) Af Amer 99, Est GFR (MDRD) Non-Af 82, BUN/Creatinine Ratio 17.8, Glucose 105, Calcium 9.4, Troponin I High Sens 9 06/23/22 13:09: POC Glucose [address] 06/23/22 13:25 IMPRESSION: Chronic involutional changes of the brain. N.B. : The above Results were Read Back by Alexsander Mcclain MD to Dr Paul DO, and understanding confirmed on 06/23/2022 13:59:17 (ET). Electronically Signed: Alexsander Mcclain MD at 14:00 EST , ADDENDUM: 06/23/22 1407 IMPRESSION: Chronic involutional changes of the brain. N.B. : The above Results were Read Back by Alexsander Mcclain MD to Dr Paul DO, and understanding confirmed on 06/23/2022 13:59:17 (ET). Electronically Signed: Alexsander Mcclain MD at 14:00 EST , Head/Neck CTA 06/23/22 13:25 IMPRESSION: There is occlusion of the right internal carotid artery just distal to the carotid bifurcation. The right intracerebral branches are filled from the left internal carotid artery. N.B. : The above Results were Read Back by Alexsander Mcclain MD to Dimas Salazar DO, and understanding confirmed on 06/23/2022 14:09:07 (ET). Electronically Signed: Alexsander Mcclain MD at 14:11 EST , ADDENDUM: 06/23/22 1418 IMPRESSION: There is occlusion of the right internal carotid artery just distal to the carotid bifurcation. The right intracerebral branches are filled from the left internal carotid artery. N.B. : The above Results were Read Back by Alexsander Mcclain MD to Dimas Salazar DO, and understanding confirmed on 06/23/2022 14:09:07 (ET). Electronically Signed: Alexsander Mcclain MD at 14:11 EST , Chest X-Ray 06/23/22 14:25 IMPRESSION: Hyperinflation. No acute abnormality is seen. Electronically Signed: Alexsander Mcclain MD at 15:01 EST , Assessment & Plan Assessment/Plan (1) TIA (transient ischemic attack): PLAN: Plan 1. Acute TIA/CVA in a patient with multiple cardiovascular risk factors Differentials could also be a primary retinal pathology Patient has history of chronic right total carotid occlusion, left carotid moderate occlusion Not a TPA candidate Admit to PCU, monitor on telemetry, MRI of the brain 2D echo, Lipid profile in am, HbA1c 2. Hypertension/Hyperlipidemia/CAD s/p stent Continue aspirin, statin Hold antihypertensives to allow for permissive hypertension 3. Thoracic aortic aneurysm, 4.5 cm, being followed by vascular surgery in the outpatient 4. Hypothyroidism, continue Synthroid 5. Anxiety/depression, continue on trazodone, clonazepam prn 6. DVT PPx-Heparin subcu Charges/Coding Visit Charges Inpatient E&M: 31989 Init Hosp L3
[2022-06-23] MEDS: Aspirin 81 MG TAB.CHEW PO ×2 (15:57→18:19)
--- NOTE | 2022-06-23 16:30 | ECHOD_ITS ---
Reason For Study: TIA/CVA Procedure This was a 2D Doppler, Color Flow transthoracic echocardiogram. Exam performed portable in patient room. Left Ventricle Normal LV size. The estimated ejection fraction is 55 %. Diastolic function is indeterminate. No regional wall motion abnormalities noted. Right Ventricle Normal RV size. Normal systolic function. Atria The left atrium is mildly enlarged. Normal right atrium. No doppler evidence for ASD. Bubble contrast study negative for right to left interatrial shunt. Mitral Valve There is no mitral valve stenosis. No mitral valve insufficiency. Tricuspid Valve There is no tricuspid stenosis. Trivial tricuspid valve insufficiency. Pulmonary artery systolic pressure is 25 mmHg. Aortic Valve Trisinus/trileaflet aortic valve. There is no aortic stenosis. No aortic valve insufficiency. Pulmonic Valve There is no pulmonic valvular stenosis. No pulmonic valve insufficiency. Great Vessels Normal aortic root. Pericardium/Pleural No pericardial effusion. MMode/2D Measurements & Calculations RVDd: 4.4 cm Ao root diam: 4.0 cm LAV(MOD-bp): 76.9 ml LAV(MOD-bp) Indexed: 40.1 ml/m2 LAV(MOD-sp2): 99.8 ml LAV(MOD-sp4): 58.2 ml SV(MOD-sp4): 52.7 ml SV(sp4-el): 54.2 ml LVAd ap4: 27.2 cm2 LVLd ap4: 7.5 cm EDV(MOD-sp4): 82.4 ml EDV(sp4-el): 83.5 ml LVAs ap4: 14.5 cm2 LVLs ap4: 6.0 cm ESV(MOD-sp4): 29.8 ml ESV(sp4-el): 29.3 ml EF(MOD-sp4): 63.9 % EF(sp4-el): 64.9 % LA A4 area: 21.9 cm2 LA dimension(2D): 4.1 cm RA A4 area: 17.8 cm2 Time Measurements MV dec time: 0.27 sec Doppler Measurements & Calculations MV E max joseph: 47.4 cm/sec Lat Peak E' Joseph: 7.9 cm/sec Med Peak E' Joseph: 7.4 cm/sec MV A max joseph: 50.1 cm/sec E/E' lat: 6.0 E/E' med: 6.4 MV E/A: 0.95 MV V2 max: 61.2 cm/sec MV dec slope: 184.7 cm/sec2 Ao V2 max: 119.9 cm/sec MV max P.5 mmHg Ao max P.8 mmHg MV V2 mean: 32.9 cm/sec Ao V2 mean: 80.8 cm/sec MV mean P.51 mmHg Ao mean P.0 mmHg MV V2 VTI: 22.2 cm Ao V2 VTI: 30.9 cm AV (velocity ratio): 0.81 LV V1 max: 106.7 cm/sec PA V2 max: 73.1 cm/sec LV V1 max P.6 mmHg PA V2 mean: 48.2 cm/sec LV V1 mean P.3 mmHg LV V1 mean: 69.7 cm/sec LV V1 VTI: 25.1 cm ECHO/Echo Complete Interpretation Summary The estimated ejection fraction is 55 %. Diastolic function is indeterminate. The left atrium is mildly enlarged. Ordering Physician: Lisha Elkins Referring Physician: Heike Payne M.D. Performed By: Lucy Lugo RCS
[2022-06-23 18:05] LABS: Hemoglobin A1c 5.8 % (3.8-5.6)
--- NOTE | 2022-06-23 19:04 | MRI_ITS ---
STUDY: MRI BRAIN WITHOUT CONTRAST REASON FOR EXAM: Male, 77 years old. NEURO DEFICIT, dizziness, blurred vision, left-sided weakness TECHNIQUE: Standardized multiplanar fat and water weighted pulse sequences were obtained. COMPARISON: 10/14/2015, 06/23/[address] FINDINGS: There is mild cerebral volume loss with widening of the extra-axial spaces and ventricular dilatation. Normal white matter tracts of the supratentorial brain. There is no evidence for recent intracranial ischemia or other cause of cytotoxic edema on diffusion weighted imaging (DWI). Normal T2* images of the brain without demonstrated susceptibility artifact. There is no demonstrated hemosiderin stain. Normal bilateral basal ganglia. Normal thalami. There is no extra-axial fluid accumulation. Normal flow voids within the major intracranial circulation suggesting patency by spin echo criteria. Normal sella turcica, pituitary gland, infundibular stalk, optic chiasm and hypothalamus. Normal tectal plate and pineal gland. Normal midbrain, yomi and medulla. Normal cerebellum. Normal basal cisterns. Normal bilateral temporal bones. Normal bilateral internal auditory canals. No demonstrated orbital abnormality, within the constraints of a routine brain study. Normal visualized paranasal sinuses. Normal calvarium and skull base. Normal visualized soft tissue structures. Normal visualized upper cervical spine. MRI/Brain without Contrast IMPRESSION: No acute abnormal brain finding. Electronically Signed: Alhaji Malik MD at 20:22 EST ,
[2022-06-23] MEDS: traZODone 100 MG Tablet 200 MG PO (21:23)
[2022-06-23] MEDS: Famotidine 20 MG Tablet 40 MG PO (21:24)
[2022-06-23] MEDS: Atorvastatin Calcium 40 MG Tablet PO (21:24)
[2022-06-24 00:15] VITALS: BP 130/93; PULSE 53; RESP 18; TEMP 36.7; O2SAT 95
[2022-06-24] MEDS: clonazePAM 1 MG Tablet PO (00:48)
[2022-06-24 02:55] VITALS: PULSE 51
[2022-06-24 03:33] VITALS: BMI 23.6
[2022-06-24 04:15] VITALS: BP 99/71; PULSE 59; RESP 18; TEMP 36.7; O2SAT 93
[2022-06-24] MEDS: Levothyroxine 50 MCG Tablet PO (05:38)
[2022-06-24 07:01] VITALS: PULSE 53
[2022-06-24 07:50] VITALS: O2SAT 93
[2022-06-24 07:50] LABS: Cholesterol 119 mg/dL (200); High Density Lipoprotein 46 mg/dL; Triglycerides 77 mg/dL; Very Low Density Lipoprotein 15 mg/dL (5-40)
[2022-06-24 08:15] VITALS: BP 105/76; PULSE 56; RESP 20; TEMP 36.3; O2SAT 94
--- NOTE | 2022-06-24 08:31 | CASEMGMT ---
Social Work As per the initial nursing admissions questions, pt has LW/POA but is unable to bring in the documents. It was indicated at that time that [facility] is pt's POA. MARIA C Angulo
[2022-06-24] MEDS: Aspirin 81 MG TAB.CHEW PO (08:50)
[2022-06-24] MEDS: Famotidine 20 MG Tablet 40 MG PO (08:50)
--- NOTE | 2022-06-24 09:59 | CASEMGMT ---
Social Work PHQ-9 not completed as pt did not have a stroke. MARIA C Angulo
--- NOTE | 2022-06-24 10:10 | CASEMGMT ---
ALBERT SINGH Assessment: Face to Face with pt for initial transition planning/care coordination assessment. RN FRANCISCO introduced self and role at [facility], pt voices understanding and consents to assessment. Pt is A/O x4 and answers all questions appropriately at this time. Pt sitting on eob in no distress. Care providers, pharmacy, and demographics verified/updated. Admitting Dx: CVA PCP:Elmer Specialists:[facility], vasc; [place], cardio Preferred Pharmacy: [facility] Insurance: [facility], [address] [facility] Prescription Benefit: no, pt [facility] LNOK: Enedelia Hill, niece; Joyce Bowman, sister Living Arrangements: Pt lives alone in a single story house [facility] 2 steps to enter. Pt reports he is I in ADL's and denies concerns at home. Transportation: Pt drives self and denies concerns with transportation. DME/HHC/SNF: Pt has a cane but does not use, denies hx of HHC or SNF stays. Pt states no concerns with going home at time of dc. Pt is SBA in the room. Pt states no further concerns/needs. CM to follow. Advised pt to ask CM if any further question/concerns/needs arise, voices understanding. Pt Goal: Home Plan: Home
--- NOTE | 2022-06-24 13:22 | DCINST_ITS ---
Discharge Instructions Diet Discharge Diet: Low fat / Low cholesterol Activity Discharge Activity: Return to Normal Activity Dressing / Incision Call your doctor if you observe: Fever of 101 or Higher, Shortness of breath, Dizziness, Fainting spells, Swelling in the ankles, Chest pain and Increased palpitations (irregular heartbeat) Follow Up Care Test Results: Test results from this visit will be discussed in further detail at your follow- up appointment, if applicable. Discharge Plan Admission Admit Date/Time: 06/23/22 15:01 Attending Provider: Gregory Orellana Primary Care Provider: Heike Payne Consulting Providers: Lisha Elkins Discharge Orders/Prescriptions Prescriptions: New clopidogrel [Plavix] 75 mg tablet 75 mg PO DAILY Qty: 30 0RF Continued atorvastatin 40 mg tablet 40 mg PO QHS Hold Instructions: Myalgias levothyroxine 50 mcg tablet 50 mcg PO DAILY amlodipine 10 mg tablet 10 mg PO DAILY nitroglycerin 0.4 mg tablet, sublingual 0.4 mg SUBLINGUAL Q5-15M PRN (Reason: Chest Pain) fluticasone propionate [Flonase Allergy Relief] 50 mcg/actuation spray,suspension 2 spray INTRANASAL DAILY PRN (Reason: seasonal allergies) trazodone 100 mg tablet 200 mg PO QHS clonazepam 1 mg tablet 1 mg PO BID PRN (Reason: Insomnia) losartan 100 MG tablet 100 mg PO DAILY Label Comments: blood pressure famotidine 40 mg tablet 40 mg PO BID Label Comments: gerd aspirin 81 mg tablet,chewable 81 mg PO BID Label Comments: heart health Referrals / Follow Up: Heike Payne MD [Primary Care Provider] - Within 1 Week Disposition Disposition (needs filled in before D/C Order can be placed): Home, Self Care
--- NOTE | 2022-06-24 14:45 | DS.PCM_ITS ---
Providers Date of Admission: 06/23/22 Primary Care Physician: Dr. Heike Payne MD Reason For Visit: CVA Diagnosis Discharge Diagnosis (1) TIA (transient ischemic attack): Status: Acute Code(s): G45.9 - Transient cerebral ischemic attack, unspecified Medications at Discharge Home Medications losartan 100 mg tablet 100 mg PO DAILY Blood pressure 10/14/15 amlodipine 10 mg tablet 10 mg PO DAILY heart 12/04/18 aspirin 81 mg chewable tablet 81 mg PO BID blood 12/04/18 atorvastatin 40 mg tablet 40 mg PO QHS cholesterol 12/04/18 famotidine 40 mg tablet 40 mg PO BID allergies 12/04/18 levothyroxine 50 mcg tablet 50 mcg PO DAILY thyroid 12/04/18 nitroglycerin 0.4 mg sublingual tablet 0.4 mg sublingual Q5-15M PRN Chest Pain 12/04/18 fluticasone propionate 50 mcg/actuation nasal spray,suspension (Flonase Allergy Relief) 2 spray intranasal DAILY PRN seasonal allergies 12/30/19 trazodone 100 mg tablet 200 mg PO QHS for sleep 12/30/19 clonazepam 1 mg tablet 1 mg PO BID PRN Insomnia 07/04/21 clopidogrel 75 mg tablet (Plavix) 75 mg PO DAILY #30 tabs 06/24/22 Hospital Course Operations None Procedures 2-D Echocardiogram Summary of Care Provided Minutes Spent on Discharge: 42 Hospital Course: Per HPI: SHASHANK BOB, is a 77 M who presents with the above.? Patient has past medical history of CAD status post stents to the RCA, right-sided total carotid occlusion, moderate disease in the left carotid artery, ascending aortic aneurysm, hypertension, hyperlipidemia who was feeling dizzy at about 5 PM yesterday.? He felt that it was probably secondary to vertigo.? This persisted throughout the whole day.? This morning, he went to the [place] for his [place] and realized that he could not move his left leg.? He told the physician and his blood pressure was checked and was elevated.? [facility] in the [facility] and found to be very unsteady.? He admitted that his vision was blurred and he was seeing floaters and seen objects shifting.? At time of being seen in the ED, he admitted to diminished sensation in his left leg, arm and left side of his face. His vitals in ED showed BP of 158/96, heart rate 56, respiratory 14, temperature 97.3 F, 95 % on room air.? His WBC count was 8.3, hemoglobin 16.6, platelet count was 186, INR 1.0, his BMP was unremarkable.? Troponin was 9. Initial CT of the brain showed chronic involutional changes.? CT of the head and neck showed occlusion of the right internal carotid artery just distal to the carotid bifurcation.? Right intracerebral branches are filled from the left internal carotid artery.? Chest x-ray shows hyperinflation.? No acute ab normality seen. Hospital Course: 1. Acute TIA/HTN/HLD/CAD status post stent/carotid stenosis?77-year-old male with significant vasculopathy presents to the hospital with an inability to move his left lower extremity as well as some dizziness consistent with his vertigo that he normally has at home. There is concern given the immobility of his left leg but he could be having a stroke. Symptoms resolved completely an MRI was negative for a stroke. Echo was unremarkable and physical therapy assessed him and did not feel that he had any mobility needs at this time. He does have a significant coronary artery history as well as a carotid artery history, his right carotid is occluded and his left carotid has a less than 50% stenosis. I do recommend continuing with his aspirin and a statin, will add Plavix and I do recommend that he follow-up with his PCP in 3 to 5 days for an outpatient neurology referral for further evaluation. He states that he has met with a vascular surgeon who felt that his carotids were beyond intervention. I did provide some education on lifestyle modifications in terms of diet and I do recommend continuing all of his home blood pressure medications. He was discharged faster than anticipated as symptomatology resolved quickly. 2. History of thoracic aortic aneurysm, hypothyroidism, anxiety, depression are all chronic medical conditions which complicate his care. His home medications were continued where appropriate Physical Exam Narrative General: Alert, Oriented x3, Cooperative, No apparent distress HEENT: Atraumatic, PERRLA, EOMI, Normocephalic Oral: Moist Mucosa Neck: Supple, No JVD Lungs: Clear to auscultation, Normal air movement, No rhonchi, No wheeze, No rales Cardiovascular: Regular rate, Regular Rhythm, Normal S1, Normal S2, No murmurs Abdomen: Soft, Non Tender, Non-Distended, No Hepato-splenomegaly Extremities: No edema, Capillary Refill Less than 3 Seconds Skin: No rashes, No breakdown Musculoskeletal: No Tenderness to Palpation of Joints or Extremities Neurological: Cranial nerves II-XII grossly intact, Motor Exam 5/5 strength throughout, Sensory exam intact to light touch and pain Psych/Mental Status: Normal Affect, Appropriate Weight / BMI Weight Weight: 164 lb 14.492 oz Body Mass Index (BMI) 23.6 ABG / Lab / Microbiology Data Result Diagrams: 06/23/22 13:05 06/23/22 13:05 Laboratory: Laboratory Results - last 24 hr 06/23/22 13:05: Hemoglobin A1c 5.8 H 06/24/22 06:30: Triglycerides 77, Cholesterol 119, LDL Cholesterol 58, VLDL Cholesterol 15, HDL Cholesterol 46 Radiography Diagnostic Testing: Radiology Impression Chest X-Ray 06/23/22 14:25 IMPRESSION: Hyperinflation. No acute abnormality is seen. Electronically Signed: Alexsander Mcclain MD at 15:01 EST , Echocardiogram 06/23/22 16:30 Interpretation Summary The estimated ejection fraction is 55 %. Diastolic function is indeterminate. The left atrium is mildly enlarged. Ordering Physician: Lisha Elkins Referring Physician: Heike Payne M.D. Performed By: Lucy Lugo RCS Brain MRI 06/23/22 19:04 IMPRESSION: No acute abnormal brain finding. Electronically Signed: Alhaji Malik MD at 20:22 EST , D/C Instructions Discharge Diet: Low fat / Low cholesterol Call your doctor if you observe: Fever of 101 or Higher, Shortness of breath, Dizziness, Fainting spells, Swelling in the ankles, Chest pain and Increased palpitations (irregular heartbeat) Meaningful Use Info Meaningful Use Diagnoses (Choose all that apply): None applicable Discharge Plan Admission Admit Date/Time: 06/23/22 15:01 Attending Provider: Gregory Orellana Primary Care Provider: Heike Payne Consulting Providers: Lisha Elkins Discharge Orders/Prescriptions Prescriptions: New clopidogrel [Plavix] 75 mg tablet 75 mg PO DAILY Qty: 30 0RF Continued atorvastatin 40 mg tablet 40 mg PO QHS Hold Instructions: Myalgias levothyroxine 50 mcg tablet 50 mcg PO DAILY amlodipine 10 mg tablet 10 mg PO DAILY nitroglycerin 0.4 mg tablet, sublingual 0.4 mg SUBLINGUAL Q5-15M PRN (Reason: Chest Pain) fluticasone propionate [Flonase Allergy Relief] 50 mcg/actuation spray,suspension 2 spray INTRANASAL DAILY PRN (Reason: seasonal allergies) trazodone 100 mg tablet 200 mg PO QHS clonazepam 1 mg tablet 1 mg PO BID PRN (Reason: Insomnia) losartan 100 MG tablet 100 mg PO DAILY Label Comments: blood pressure famotidine 40 mg tablet 40 mg PO BID Label Comments: gerd aspirin 81 mg tablet,chewable 81 mg PO BID Label Comments: heart health Referrals / Follow Up: Heike Payne MD [Primary Care Provider] - Within 1 Week Disposition Disposition (needs filled in before D/C Order can be placed): Home, Self Care Charges/Coding Visit Charges Inpatient E&M: 68892 Disch Hosp
== END 2022-06-24 14:47 | disposition home or self-care (01) | DRG 68 ==
LOC: ED 15:13 → PCU 15:18
PROVIDERS: Admitting Provider Internal Medicine; Emergency Provider Student in an Organized Health Care Education/Training Program; PCP Internal Medicine; Visit Provider Family Medicine
DX: I65.23 Occlusion and stenosis of bilateral carotid arteries (principal); E03.9 Hypothyroidism, unspecified; I71.21 Aneurysm of the ascending aorta, without rupture; H53.8 Other visual disturbances; I10 Essential (primary) hypertension; E78.5 Hyperlipidemia, unspecified; I25.10 Atherosclerotic heart disease of native coronary artery without angina pectoris; F41.9 Anxiety disorder, unspecified; F32.A Depression, unspecified; Z87.891 Personal history of nicotine dependence; Z79.82 Long term (current) use of aspirin; Z95.5 Presence of coronary angioplasty implant and graft
CPT/HCPCS: 36415; 70450; 70496; 70498; 70551; 71045; 80048; 80061; 82962; 83036; 84484; 85025; 85610; 85730; 92610; 93005; 93306; 94762; 97161; 97165; 97802; 99285; Q9957; Q9967; A4216

== ENCOUNTER → 2022-08-15 | Outpatient (CLI) | payer MEDICARE, OTHER, SELFPAY | END | disposition home or self-care (01) | PROVIDERS: PCP Internal Medicine | DX: G45.9 Transient cerebral ischemic attack, unspecified (principal) | CPT/HCPCS: 93225; 93226 ==

== ENCOUNTER → 2023-01-11 | Outpatient (CLI) | payer MEDICARE, OTHER, SELFPAY ==
--- NOTE | 2023-01-11 14:16 | CT_ITS ---
STUDY: CTA CHEST REASON FOR EXAM: Male, 78 years old. TAA f/u RADIATION DOSAGE (If Supplied By Facility): CTDIvol = ( 13.19 ) mGy, DLP = ( 540.83 ) mGycm TECHNIQUE: The examination was performed with the intravenous administration of IV 100mL Isovue-370. Post-processing of the angiographic images was performed, with multiplanar reformation and 3D reconstruction. Individualized dose optimization techniques were used for this CT. COMPARISON: Comparison is made with prior examination of January 02, 2022. FINDINGS: Normal enhancement of the main pulmonary artery and right and left pulmonary arteries. Normal enhancement of the bilateral peripheral pulmonary arteries. There is no demonstrated pulmonary embolism. There is aneurysmal dilatation of the ascending aorta. The transverse diameter of the ascending aorta measures 41.8 mm''s. This is essentially unchanged. There is no demonstrated aortic dissection. Normal heart and pericardium. Normal mediastinum. Normal hilar regions. Normal visualized trachea and bronchi. The lungs are hyper expanded, with flattening of the hemidiaphragms. Mild degree of emphysematous changes. Stable increased markings in the posterior medial segments of both lower lobes more prominent on the right side suggestive of scarring. Normal pleura. Normal chest wall structures. There are degenerative changes of thoracic spine. Normal visualized upper abdomen. CT/CTA Chest W/WO Contrast IMPRESSION: Stable examination. The ascending aorta measures 41.8 mm. Electronically Signed: Alexsander Mcclain MD at 15:17 EDT ,
[2023-01-11 14:40] LABS: EGFR FINGERSTICK > 60.0000 mL/min (>60)
== END | disposition home or self-care (01) ==
LOC: CT 14:15
PROVIDERS: PCP Internal Medicine; Referring Provider Physician Assistant Medical; Visit Provider Physician Assistant Medical
DX: I71.20 Thoracic aortic aneurysm, without rupture, unspecified (principal)
CPT/HCPCS: 71275; Q9967

== ENCOUNTER → 2023-08-07 | Outpatient (CLI) | payer MEDICARE, OTHER, SELFPAY ==
--- NOTE | 2023-08-07 10:54 | CDU_ITS ---
Reason For Study: CVA / RT ICA Occlusion Rt. Velocities/BP Lt. Velocities/BP Prox CCA 72.4/8.7 cm/sec. Prox CCA 71.0/20.4 cm/sec. Mid CCA 50.3/10.1 cm/sec. Mid CCA 84.2/25.9 cm/sec. Dist CCA 28.8/4.6 cm/sec. Dist CCA 52.3/19.3 cm/sec. Rt ICA - KNOWN OCCLUSION. BULB - 56.7/19.3 cm/sec. Prox ECA 90.0/10.7 cm/sec. Prox ICA 132.6/43.1 cm/sec. Rt. Vert. 48.3/17.5 cm/sec. Mid ICA 103.4/39.5 cm/sec. Dist ICA 113.1/39.2 cm/sec. Lt. ICA/CCA = 2.5. Prox ECA 94.4/13.1 cm/sec. Lt. Vert. 36.3/9.2 cm/sec. Right Extracranial There is homogeneous, smooth atherosclerotic plaque noted in the right common carotid artery. There is heterogeneous, irregular atherosclerotic plaque noted in the right internal carotid artery. The right internal carotid artery is occluded. There is heterogeneous, irregular atherosclerotic plaque noted in the right external carotid artery. Antegrade flow is noted in the right vertebral artery. Left Extracranial There is homogeneous, smooth atherosclerotic plaque noted in the left common carotid artery. There is heterogeneous, irregular atherosclerotic plaque noted in the left internal carotid artery. There is intimal thickening but no significant atherosclerotic plaque noted in the left external carotid artery. Antegrade flow is noted in the left vertebral artery. VL/Carotid Duplex Ultrasound Interpretation Summary The right internal carotid artery appears to be totally occluded. Moderate (50- 69%) stenosis left extracranial internal carotid. Flow within the vertebral arteries is antegrade bilaterally. Ordering Physician: Jarod Davies Referring Physician: Heike Payne Performed By: Mode Lopez RVT
== END | disposition home or self-care (01) ==
PROVIDERS: PCP Internal Medicine; Referring Provider Surgery Vascular Surgery; Visit Provider Surgery Vascular Surgery
DX: I65.23 Occlusion and stenosis of bilateral carotid arteries (principal); I63.9 Cerebral infarction, unspecified
CPT/HCPCS: 93880

== ENCOUNTER 2024-01-23 09:26 | Observation (INO) | payer MEDICARE, OTHER, SELFPAY ==
[2024-01-23] VITALS (12 sets, daily range): BP systolic 104–146; BP diastolic 62–93; PULSE 72–87; RESP 14–20; TEMP 36.1–36.5; O2SAT 86–96; BMI 24.6; BMI 23.3
--- NOTE | 2024-01-23 09:33 | EKG12_ITS ---
Test Reason : SOB Blood Pressure : / mmHG Vent. Rate : 079 BPM Atrial Rate : 079 BPM P-R Int : 130 ms QRS Dur : 136 ms QT Int : 412 ms P-R-T Axes : -09 -51 -01 degrees QTc Int : 472 ms Normal sinus rhythm Right bundle branch block Left anterior fascicular block Bifascicular block Abnormal ECG Confirmed by HARDIK VELAZQUEZ, HARMAN ([id number]), primer expeditor and drier JESSE JIMENEZ ([id number]) on 01/30/2024 10:26:26 A M Referred By: MACIE Confirmed By:WENDY DYE MD
--- NOTE | 2024-01-23 09:35 | RAD_ITS ---
STUDY: X-RAY CHEST REASON FOR EXAM: Male, 79 years old. Chest pain TECHNIQUE: Single AP portable view of the chest. COMPARISON: Comparison is made with prior study dated June 23, 2022. FINDINGS: EKG electrodes are seen. Hyperinflation. The lungs are clear. There is no demonstrated pleural abnormality. Normal size heart. Normal mediastinum and rahel. Normal visualized pulmonary arteries. There is atherosclerotic tortuosity of the aortic arch and descending thoracic aorta. There are diffuse degenerative changes of the visualized thoracic spine. Normal visualized ribs, clavicles, and shoulders. There is no demonstrated abnormality of the visualized soft tissue structures of the upper abdomen. RAD/Chest 1 View (Portable) IMPRESSION: No acute abnormality is seen. Electronically Signed: Alexsander Mcclain MD at 10:03 EDT ,
[2024-01-23 09:45] LABS: Absolute Lymphocyte Count 1.39 X10^3/uL (0.83-4.51); Absolute Neutrophil Count 6.3 X10^3/uL (2.0-7.7); Basophil# 0.02 X10^3/uL; Basophil% 0.2 % (0-1); Eosinophil# 0.07 X10^3/uL; Eosinophils% 0.8 % (0-5); Hemoglobin 14.7 g/dL (13.0-16.5); Lymphocyte # 1.39 X10^3/ul (0.83-4.51); Lymphocyte % 16.5 % (19-41); Mean Corp Hgb Conc 34.2 g/dL (32-36); Mean Corpuscular Hgb 30.2 pg (27.0-32.0); Mean Corpuscular Volume 88.3 fL (80-94); Mean Platelet Vol. 10.5 fl (6.2-12.0); Monocyte# 0.62 X10^3/uL; Monocyte% 7.4 % (0-10); NRBC Flagged by Analyzer 0 % (0-5); Neutrophil % 74.7 % (47-70); Platelet Count 138 K/mm3 (150-450); RBC Distribution Width SD 41.9 fl (35.1-43.9); Red Blood Count 4.87 M/mm3 (4.6-6.2); White Blood Count 8.4 K/mm3 (4.4-11.0)
--- NOTE | 2024-01-23 09:49 | EDS_ITS ---
HPI History of Present Illness Chief Complaint: Shortness of Breath Narrative Narrative: 79-year-old male with history of hypertension, CAD, hyperlipidemia, thoracic aortic aneurysm presenting with dyspnea. He states he was recently diagnosed with COPD/emphysema. Patient states he feels more short of breath over the last week. He has not had a fever. Denies any chest pain. Patient states he is more short of breath when he is ambulating. This gets better with rest. He does state that when he tries to sleep he wakes up very short of breath. He states he had a sleep study done in 2016 which was negative but has not seen them since. He was told that he snores. Patient has no known sick contacts at this time and states his family is all out of town. No history of DVT/PE and no risk factors. Patient denies a history of CHF but states he previously was on Lasix. 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 Anxiety Cerebellar atrophy Myocardial infarction, old History of hepatitis C Psychophysiological insomnia Depression Carotid artery occlusion (~06/2011) Atherosclerosis of coronary artery of [place] heart without angina pectoris Vertebral artery aneurysm (~06/2011) Alopecia Essential hypertension Hypothyroidism Vertigo Hyperlipidemia Home Medications ?Medication ?Instructions ?Recorded ?Last Taken ?Type losartan 100 mg tablet 100 mg PO DAILY Blood pressure 10/14/15 06/22/22 History amlodipine 10 mg tablet 10 mg PO DAILY heart 12/04/18 06/23/22 08:00 History atorvastatin 40 mg tablet 40 mg PO QHS cholesterol 12/04/18 06/22/22 History famotidine 40 mg tablet 40 mg PO BID allergies 12/04/18 06/23/22 History levothyroxine 50 mcg tablet 50 mcg PO DAILY thyroid 12/04/18 06/23/22 History nitroglycerin 0.4 mg sublingual 0.4 mg sublingual Q5-15M PRN Chest 12/04/18 Unknown History tablet Pain fluticasone propionate 50 2 spray intranasal DAILY PRN 12/30/19 Unknown History mcg/actuation nasal seasonal allergies spray,suspension (Flonase Allergy Relief) trazodone 100 mg tablet 200 mg PO QHS for sleep 12/30/19 Unknown History clonazepam 1 mg tablet 1 mg PO BID PRN Insomnia 07/04/21 06/22/22 History aspirin 81 mg tablet,delayed 81 mg PO DAILY 07/11/22 Unknown History release (Adult Aspirin Regimen) Allergy/AdvReac Type Severity Reaction Status Date / Time No Known Allergies Allergy Verified 01/23/24 09:27 Family History Father CHF (congestive heart failure) Mother Cancer stomach Surgical History Presence of stent in coronary artery History of hemorrhoidectomy Benign neoplasm of large bowel Social History Smoking Status: Former smoker how long ago did patient quit smokin years ago alcohol intake: never substance use type: does not use caffeine: Yes Type: coffee Number of servings: 5 ROS ROS ED Constitutional Constitutional ED: Denies chills, fever(s) or sweats Eyes Eyes: Denies blurry vision or change in vision ENT ENT ED: Denies ear pain or sore throat Cardiovascular Cardiovascular: Reports orthopnea; Denies chest pain, palpitations or racing heartbeat Respiratory/Chest Respiratory/Chest: Reports cough, dyspnea, dyspnea on exertion and orthopnea; Denies sputum Gastrointestinal Gastrointestinal: Denies abdominal pain, constipation, diarrhea, nausea or vomiting Genitourinary Genitourinary ED: Denies dysuria, hematuria or urinary frequency Musculoskeletal Musculoskeletal: Denies arthralgias, myalgias or neck pain Integumentary Denies abscess, Abrasions or rash Neurologic Neurologic: Denies headache(s), paresthesias or weakness Psychiatric Psychiatric: Denies anxiety, depression, suicidal ideation or suicidal thoughts Endocrine Endocrinology: Denies polydipsia or polyuria EXAM Physical Exam Const Vital Signs: 01/23/24 09:27 01/23/24 09:38 01/23/24 09:39 Temperature 97.0 F L Temperature Source Temporal Pulse Rate 83 Respiratory Rate 18 Respiratory Effort Short of Breath Respiratory Depth Shallow Respiratory Pattern Tachypnea Blood Pressure 146/93 H Blood Pressure Mean 110 Pulse Ox 92 Oxygen Delivery Method Room Air Room Air Oxygen Flow Rate (L/min) 01/23/24 09:56 01/23/24 10:25 01/23/24 10:25 Temperature Temperature Source Pulse Rate 72 78 Respiratory Rate 16 14 Respiratory Effort Respiratory Depth Respiratory Pattern Blood Pressure 115/65 Blood Pressure Mean 81 Pulse Ox 86 96 Oxygen Delivery Method Room Air Nasal Cannula Oxygen Flow Rate (L/min) 2 01/23/24 11:00 Temperature Temperature Source Pulse Rate 81 Respiratory Rate 17 Respiratory Effort Respiratory Depth Respiratory Pattern Blood Pressure 104/62 Blood Pressure Mean 76 Pulse Ox 95 Oxygen Delivery Method Nasal Cannula Oxygen Flow Rate (L/min) 2 Positive well nourished General Appearance ED: NAD; Negative for pallor HEENT Reports moist mucous membranes Eyes PERRL and EOMs intact bilaterally Neck no lymphadenopathy Resp normal respiratory effort Auscultation: Negative for rales, rhonchi or wheezes Cardio regular rate and regular rhythm Neuro oriented x3 and CN's II-XII intact bilaterally Sensorium / Orientation: alert Psych mental status grossly normal Skin no wounds General Skin Exam: Negative for jaundice or pallor MDM MDM MDM Narrative Medical decision making narrative: Patient presented with shortness of breath which is worse over the last week. He is not having any chest pain. Differential includes emphysema, COPD exacerbation, pneumonia, viral syndrome, CHF, dehydration, anemia, electrolyte abnormalities. Patient is PERC negative. He does have a history of aortic aneurysm but he is not having any pain. CBC will be obtained to assess white blood cell count, hemoglobin, platelets. BMP to assess renal function, electrolytes, glucose. High-sensitivity troponin and EKG to assess for ischemia/dysrhythmia. BNP to assess for CHF. Chest x-ray to rule out pneumonia or CHF. Patient will be given breathing treatments and Solu-Medrol to see if this helped him feel subjectively better. He drops down to 89% on room air while talking to me in the room but when he stops talking he comes up to 95 to 96% on room air. CBC shows normal white blood cell count at 8.4. Hemoglobin 14.7. Platelets are slightly low at 138. Renal function and electrolytes within normal limits. High-sensitivity troponin is 10. BNP is 14.6. EKG interpreted by myself shows a sinus rhythm at 79 bpm with right bundle branch block pattern noted. Chest x-ray interpreted by myself shows no acute cardiopulmonary process. Patient became hypoxic sitting in the bed down to 86%. He was placed on 2 L nasal cannula and is now 95% on room air. I added a D- dimer which was negative when age-adjusted. I did obtain a CT scan which does not show anything acute but shows some scarring and COPD. Impression: 1. COPD exacerbation 2. Hypoxia Lab Data Attestation: I reviewed the patient's lab results. Labs: Laboratory Results - last 24 hr 01/23/24 09:37 WBC 8.4 RBC 4.87 Hgb 14.7 Hct 43.0 MCV 88.3 MCH 30.2 MCHC 34.2 RDW Std Deviation 41.9 RDW Coeff of Jacky 13.0 Plt Count 138 L MPV 10.5 Immature Gran % (Auto) 0.400 Neut % (Auto) 74.7 H Lymph % (Auto) 16.5 L [place] % (Auto) 7.4 Eos % (Auto) 0.8 Baso % (Auto) 0.2 Absolute Neuts (auto) 6.3 Absolute Lymphs (auto) 1.39 Nucleated RBC % 0 D-Dimer Quant (PE/DVT) 0.59 H* Sodium 136 Potassium 3.7 Chloride 106 Carbon Dioxide 27.0 Anion Gap 3 L BUN 15 Creatinine 1.18 Estim Creat Clear Calc 54.13 Est GFR (MDRD) Af Amer 77 Est GFR (MDRD) Non-Af 64 BUN/Creatinine Ratio 12.7 Glucose 112 H Calcium 8.7 Troponin I High Sens 10 B-Natriuretic Peptide 14.6 Radiography Diagnostic Testing: Clinical Impression(s) from Imaging Studies Chest X-Ray 01/23/24 09:35 IMPRESSION: No acute abnormality is seen. Electronically Signed: Alexsander Mcclain MD at 10:03 EDT , Chest CT 01/23/24 11:07 IMPRESSION: Hyperinflation and COPD. Stable scarring at the lung bases. Electronically Signed: Alexsander Mcclain MD at 11:39 EDT , Discharge Plan Triage Chief Complaint: Shortness of Breath ED Provider: Dimas Miller Dx/Rx/DC Orders Prescriptions: No Action atorvastatin 40 mg tablet 40 mg PO QHS levothyroxine 50 mcg tablet 50 mcg PO DAILY amlodipine 10 mg tablet 10 mg PO DAILY nitroglycerin 0.4 mg tablet, sublingual 0.4 mg SUBLINGUAL Q5-15M PRN (Reason: Chest Pain) fluticasone propionate [Flonase Allergy Relief] 50 mcg/actuation spray,suspension 2 spray INTRANASAL DAILY PRN (Reason: seasonal allergies) trazodone 100 mg tablet 200 mg PO QHS clonazepam 1 mg tablet 1 mg PO BID PRN (Reason: Insomnia) losartan 100 MG tablet 100 mg PO DAILY Patient Comments: blood pressure famotidine 40 mg tablet 40 mg PO BID Patient Comments: gerd aspirin [Adult Aspirin Regimen] 81 mg tablet,delayed release (DR/EC) 81 mg PO DAILY Primary Care Provider: Heike Payne Referrals: Heike Payne MD [Primary Care Provider] - Print Language: Belarusian
[2024-01-23] MEDS: Ipratropium/Albuterol Sulfate 3 ML AMPUL.NEB INHALATION ×2 (09:53→19:18)
[2024-01-23] MEDS: Albuterol 2.5 MG/3 ML VIAL.NEB. INHALATION (09:53)
[2024-01-23] MEDS: MethylPREDNISolone 125 MG/2 ML Vial IV (09:57)
[2024-01-23 10:03] LABS: Anion Gap 3 (5-15); BNP,B-Type NATRIURETIC PEPTIDE 14.6 pg/mL (0-100); BUN 15 mg/dL (7-18); BUN/Creat Ratio 12.7 RATIO (10-20); Calcium,Total 8.7 mg/dL (8.5-10.1); Chloride 106 mmol/L (98-107); Creatinine, Serum 1.18 mg/dL (0.70-1.30); EST Glomerular Filtration Rate 64 mL/min (>60); Est Glom Filt Rate - Afr Amer 77 mL/min (>60); Estimated Creatinine Clearance 54.13 ml/min; Glucose 112 mg/dL (74-106); Potassium 3.7 mmol/L (3.5-5.1); Sodium Level 136 mmol/L (136-145); Troponin-I HS 10 pg/mL (3.0-78.0)
[2024-01-23 10:57] LABS: D-Dimer Quantitative (DVT/PE) 0.59 FEU/ug/m (0.27-0.49)
--- NOTE | 2024-01-23 11:07 | CT_ITS ---
STUDY: CT CHEST WITHOUT CONTRAST REASON FOR EXAM: Male, 79 years old. Dyspnea RADIATION DOSAGE (If Supplied By Facility): CTDIvol = ( 12.57 ) mGy, DLP = ( 483.68 ) mGycm TECHNIQUE: Transaxial imaging was performed without the administration of intravenous contrast material. Multiplanar coronal and sagittal images were reformatted. Individualized dose optimization techniques were used for this CT. COMPARISON: Comparison is made with prior study dated January 11, 2023 and prior chest radiograph done earlier in the day. FINDINGS: CHEST Hyperinflation. Emphysematous changes. Minimal degree of increased markings at the lung bases. These were present There is no demonstrated pleural abnormality. There are calcifications of the coronary arteries. Normal mediastinum. Normal hilar regions. Normal unenhanced pulmonary arteries. There is atherosclerotic calcification of the aortic arch with tortuosity and elongation of the aortic arch and descending thoracic aorta. Stable dilatation of the root of the ascending thoracic aorta measuring 41.8 mm. There are multi-level degenerative changes of the thoracic spine. There is no demonstrated abnormality of the visualized upper abdomen. CT/Chest without Contrast IMPRESSION: Hyperinflation and COPD. Stable scarring at the lung bases. Electronically Signed: Alexsander Mcclain MD at 11:39 EDT ,
--- NOTE | 2024-01-23 12:33 | PCM.HP.STD ---
HPI - General General Date of Admission: 01/23/24 Date of Service: 01/23/24 Chief Complaint: Shortness of breath HPI Narrative QUINCY BOB, is a 79 M who presents with shortness of breath. Per patient symptoms have been ongoing for the past 10 days. In addition to shortness of breath patient has experienced some cough as well as wheezing. Also did admit to subjective fever and chills. Presented to the emergency department due to persistent nature of his symptoms. An assessment of COPD with acute exacerbation made admitted to regular nursing floor for further management. [facility] Medical History TIA (transient ischemic attack) Thoracic aortic aneurysm without rupture (~10/13/15) Claudication of both lower extremities Fatigue Nonruptured zhang aneurysm Snoring Hearing loss in left ear Disorder of bone and cartilage Anxiety Cerebellar atrophy Myocardial infarction, old History of hepatitis C Psychophysiological insomnia Depression Carotid artery occlusion (~06/2011) Atherosclerosis of coronary artery of [place] heart without angina pectoris Vertebral artery aneurysm (~06/2011) Alopecia Essential hypertension Hypothyroidism Vertigo Hyperlipidemia Home Medications ?Medication ?Instructions ?Recorded ?Last Taken ?Type losartan 100 mg tablet 100 mg PO DAILY Blood pressure 10/14/15 01/23/24 History amlodipine 10 mg tablet 10 mg PO DAILY heart 12/04/18 01/23/24 History atorvastatin 40 mg tablet 40 mg PO QHS cholesterol 12/04/18 01/22/24 History famotidine 40 mg tablet 40 mg PO BID allergies 12/04/18 01/23/24 History levothyroxine 50 mcg tablet 50 mcg PO DAILY thyroid 12/04/18 01/23/24 History nitroglycerin 0.4 mg sublingual 0.4 mg sublingual Q5-15M PRN Chest 12/04/18 Unknown History tablet Pain fluticasone propionate 50 2 spray intranasal DAILY PRN 12/30/19 Unknown History mcg/actuation nasal seasonal allergies spray,suspension (Flonase Allergy Relief) trazodone 100 mg tablet 200 mg PO QHS for sleep 12/30/19 01/22/24 History clonazepam 1 mg tablet 1 mg PO BID PRN Insomnia 07/04/21 01/22/24 History aspirin 81 mg tablet,delayed 81 mg PO DAILY 07/11/22 Unknown History release (Adult Aspirin Regimen) Allergy/AdvReac Type Severity Reaction Status Date / Time No Known Allergies Allergy Verified 01/23/24 09:27 Family History Father CHF (congestive heart failure) Mother Cancer stomach Surgical History Presence of stent in coronary artery History of hemorrhoidectomy Benign neoplasm of large bowel Social History Smoking Status: Former smoker how long ago did patient quit smokin years ago alcohol intake: never substance use type: does not use caffeine: Yes Type: coffee Number of servings: 5 ROS ROS Narrative GENERAL: Subjective fever and chills HEENT: denies headache, sinus congestion, or drainage, dysphagia RESPIRATORY: cough, shortness of breath, dyspnea on exertion CARDIAC: denies chest pain, palpitations, orthopnea, PND GASTROINTESTINAL: denies abdominal pain, nausea, vomiting, melena, GENITOURINARY: denies dysuria, urgency, frequency, heamaturia EXTREMITY: denies swelling MUSCULOSKELETAL: denies current joint pain or tenderness NEUROLOGIC: denies focal numbness, weakness, tingling HEMATOLOGIC: denies easy bruising and/or hemorrhage INTEGUMENT: denies rashes PSYCHIATRIC: denies suicidal or homicidal ideation Vital Signs Vital Signs Vital Signs: 01/23/24 09:27 01/23/24 09:38 01/23/24 09:39 Temperature 97.0 F L Temperature Source Temporal Pulse Rate 83 Respiratory Rate 18 Respiratory Effort Short of Breath Respiratory Depth Shallow Respiratory Pattern Tachypnea Blood Pressure 146/93 H Blood Pressure Mean 110 Pulse Ox 92 Oxygen Delivery Method Room Air Room Air Oxygen Flow Rate (L/min) 01/23/24 09:56 01/23/24 10:25 01/23/24 10:25 Temperature Temperature Source Pulse Rate 72 78 Respiratory Rate 16 14 Respiratory Effort Respiratory Depth Respiratory Pattern Blood Pressure 115/65 Blood Pressure Mean 81 Pulse Ox 86 96 Oxygen Delivery Method Room Air Nasal Cannula Oxygen Flow Rate (L/min) 2 01/23/24 11:00 01/23/24 12:00 01/23/24 12:08 Temperature 97.7 F L 97.7 F L Temperature Source Oral Pulse Rate 81 75 83 Respiratory Rate 17 18 20 H Respiratory Effort Respiratory Depth Respiratory Pattern Blood Pressure 104/62 110/64 110/64 Blood Pressure Mean 76 79 79 Pulse Ox 95 94 95 Oxygen Delivery Method Nasal Cannula Nasal Cannula Oxygen Flow Rate (L/min) 2 2 Weight Weight: 78 kg Body Mass Index (BMI) 24.6 Physical Exam Narrative GENERAL: cooperative HEENT: Atraumatic; normocephalic EYES; Anicteric, Normal Conjunctiva NECK; supple, normal thyroid, RESPIRATORY: Diminished to auscultation CARDIOVASCULAR: Regular S1 S2, GI: soft, normoactive bowel sounds, : No Renal angle tenderness; EXTREMITIES: No edema, no clubbing, MUSCULOSKELETAL: no muscle wasting NEURO: Awake; no lateralizing signs. SKIN: No Rash PSYCH; Flat affect Results Lab / Micro Data 01/23/24 09:37 01/23/24 09:37 Labs: Laboratory Results - last 24 hr 01/23/24 09:37: WBC 8.4, RBC 4.87, Hgb 14.7, Hct 43.0, MCV 88.3, MCH 30.2, MCHC 34.2, RDW Std Deviation 41.9, RDW Coeff of Jacky 13.0, Plt Count 138 L, MPV 10.5, Immature Gran % (Auto) 0.400, Neut % (Auto) 74.7 H, Lymph % (Auto) 16.5 L, [place] % (Auto) 7.4, Eos % (Auto) 0.8, Baso % (Auto) 0.2, Absolute Neuts (auto) 6.3, Absolute Lymphs (auto) 1.39, Nucleated RBC % 0, D-Dimer Quant (PE/DVT) 0.59 H*, Sodium 136, Potassium 3.7, Chloride 106, Carbon Dioxide 27.0, Anion Gap 3 L, BUN 15, Creatinine 1.18, Estim Creat Clear Calc 54.13, Est GFR (MDRD) Af Amer 77, Est GFR (MDRD) Non-Af 64, BUN/Creatinine Ratio 12.7, Glucose 112 H, Calcium 8.7, Troponin I High Sens 10, B-Natriuretic Peptide 14.6 Imaging Radiology Impression Chest X-Ray 01/23/24 09:35 IMPRESSION: No acute abnormality is seen. Electronically Signed: Alexsander Mcclain MD at 10:03 EDT , Chest CT 01/23/24 11:07 IMPRESSION: Hyperinflation and COPD. Stable scarring at the lung bases. Electronically Signed: Alexsander Mcclain MD at 11:39 EDT , Assessment & Plan Assessment/Plan (1) COPD exacerbation: PLAN: Plan Patient is a 79-year-old gentleman with remote history of tobacco use presenting with shortness of breath diagnosed with COPD with acute exacerbation 1. COPD with acute exacerbation - Patient started on bronchodilator treatment, systemic steroid as well as antibiotic therapy. Patient placed on oxygen titrated to keep saturation greater than 90. 2. Coronary artery disease ? With previous stent placement to an RCA lesion patient is on guideline directed medical therapy 3. Carotid artery disease with history of right sided total occlusion and moderate disease in the left carotid artery. Patient is on antiplatelet therapy with aspirin as well as statin therapy with atorvastatin 4. Dyslipidemia -Patient is on statin therapy, continued at home dose 5. Hypertension - Blood pressure controlled, home medications continued with dose adjustment as needed 6. Hypothyroidism - Patient is on levothyroxine home dose continued 7. History of thoracic aortic aneurysm without rupture ? Remains stable 8. DVT prophylaxis ? SC Lovenox Time spent in the patient's overall evaluation,decision-making process, review of diagnostic data, adjustment of management, discussion with other providers, nursing nursing and ancillary staff involved in patient's care documentation, 55 minutes Advance planning; did discuss with the patient and family regarding advanced directives as well as CODE STATUS. Did explain the various scenarios involved ( FULL CODE, DNR CCA, DNR CCA with no intubation, and DNR CC and what each meant) patient elected to remain full code with CPR and intubation if warranted. Order was placed. Time spent on discussion 6 minutes. Charges/Coding Multi Select Codes Visit Charges Visit Charges: 12434 Init Hosp L2 Hospitalists' Procedures Procedures: 93797 Advncd Care Plan 30 Min
[2024-01-23] MEDS: Cefdinir 300 MG Capsule PO ×2 (14:40→21:25)
[2024-01-23] MEDS: 0.9% Saline Lock 10 ML Syringe IV (21:08)
[2024-01-23] MEDS: Atorvastatin Calcium 40 MG Tablet PO (21:25)
[2024-01-23] MEDS: Famotidine 20 MG Tablet 40 MG PO (22:38)
[2024-01-23] MEDS: traZODone 100 MG Tablet 200 MG PO (22:38)
[2024-01-23] MEDS: clonazePAM 1 MG Tablet PO (22:52)
[2024-01-24 03:00] VITALS: BMI 23.3
[2024-01-24 03:37] VITALS: BP 136/90; PULSE 83; RESP 17; TEMP 36.4; O2SAT 96
[2024-01-24] MEDS: Levothyroxine 50 MCG Tablet PO (05:50)
[2024-01-24] MEDS: 0.9% Saline Lock 10 ML Syringe IV (05:50)
[2024-01-24 06:42] VITALS: BMI 23.1
[2024-01-24 07:38] VITALS: PULSE 89; RESP 16; O2SAT 95
[2024-01-24] MEDS: Ipratropium/Albuterol Sulfate 3 ML AMPUL.NEB INHALATION ×2 (07:38→11:23)
[2024-01-24 07:52] LABS: Absolute Lymphocyte Count 0.88 X10^3/uL (0.83-4.51); Absolute Neutrophil Count 9.4 X10^3/uL (2.0-7.7); Basophil# 0.01 X10^3/uL; Basophil% 0.1 % (0-1); Hematocrit 46.3 % (40-54); Hemoglobin 15.8 g/dL (13.0-16.5); Lymphocyte # 0.88 X10^3/ul (0.83-4.51); Lymphocyte % 8.3 % (19-41); Mean Corp Hgb Conc 34.1 g/dL (32-36); Mean Corpuscular Hgb 30.7 pg (27.0-32.0); Mean Corpuscular Volume 89.9 fL (80-94); Mean Platelet Vol. 10.6 fl (6.2-12.0); Monocyte# 0.27 X10^3/uL; Monocyte% 2.5 % (0-10); NRBC Flagged by Analyzer 0 % (0-5); Neutrophil # 9.42 X10^3/uL (2.7-7.7); Neutrophil % 88.8 % (47-70); Platelet Count 175 K/mm3 (150-450); RBC Distribution Width CV 12.8 % (11.6-14.6); RBC Distribution Width SD 42.4 fl (35.1-43.9); Red Blood Count 5.15 M/mm3 (4.6-6.2); White Blood Count 10.6 K/mm3 (4.4-11.0)
[2024-01-24 08:18] LABS: Anion Gap 7 (5-15); BUN 16 mg/dL (7-18); BUN/Creat Ratio 14.3 RATIO (10-20); Calcium,Total 9.2 mg/dL (8.5-10.1); Chloride 109 mmol/L (98-107); Creatinine, Serum 1.12 mg/dL (0.70-1.30); EST Glomerular Filtration Rate 68 mL/min (>60); Est Glom Filt Rate - Afr Amer 82 mL/min (>60); Estimated Creatinine Clearance 57.03 ml/min; Glucose 151 mg/dL (74-106); Magnesium 2.2 mg/dL (1.6-2.6); Phosphorus 3.4 mg/dL (2.5-4.9); Potassium 3.7 mmol/L (3.5-5.1); Sodium Level 140 mmol/L (136-145)
[2024-01-24 10:05] VITALS: BP 130/76; PULSE 73; RESP 18; TEMP 36.4; O2SAT 95
[2024-01-24] MEDS: Losartan Potassium 100 MG Tablet PO (10:06)
[2024-01-24] MEDS: Cefdinir 300 MG Capsule PO (10:06)
[2024-01-24] MEDS: Famotidine 20 MG Tablet 40 MG PO (10:07)
[2024-01-24] MEDS: amLODIPine 10 MG Tablet PO (10:07)
[2024-01-24 11:23] VITALS: PULSE 82; RESP 18
--- NOTE | 2024-01-24 12:10 | DCINST_ITS ---
Discharge Instructions Diet Discharge Diet: No restrictions Activity Discharge Activity: Return to Normal Activity Weight Bearing Status: Full weight bearing Follow Up Care Test Results: Test results from this visit will be discussed in further detail at your follow- up appointment, if applicable. Discharge Plan Admission Admit Date/Time: 01/23/24 12:17 Primary Reason for Your Visit: exacerbation of COPD Attending Provider: Shane Pineda Primary Care Provider: Heike Payne Consulting Providers: Quincy Wright Discharge Orders/Prescriptions Prescriptions: New albuterol sulfate 90 mcg/actuation HFA aerosol inhaler 2 puff inhalation Q6H PRN (Reason: shortness of breath or wheezing) Qty: 8.5 0RF azithromycin [Zithromax] 500 mg tablet 500 mg PO DAILY 3 Days Qty: 3 0RF prednisone 20 mg tablet 20 mg PO BID Qty: 14 0RF Rx Instructions: take for seven days starting 01/25/24 Continued atorvastatin 40 mg tablet 40 mg PO QHS levothyroxine 50 mcg tablet 50 mcg PO DAILY amlodipine 10 mg tablet 10 mg PO DAILY nitroglycerin 0.4 mg tablet, sublingual 0.4 mg SUBLINGUAL Q5-15M PRN (Reason: Chest Pain) fluticasone propionate [Flonase Allergy Relief] 50 mcg/actuation spray,suspension 2 spray INTRANASAL DAILY PRN (Reason: seasonal allergies) trazodone 100 mg tablet 200 mg PO QHS clonazepam 1 mg tablet 1 mg PO BID PRN (Reason: Insomnia) losartan 100 MG tablet 100 mg PO DAILY famotidine 40 mg tablet 40 mg PO BID Patient Comments: gerd aspirin [Adult Aspirin Regimen] 81 mg tablet,delayed release (DR/EC) 81 mg PO DAILY Referrals / Follow Up: Heike Payne MD [Primary Care Provider] - Disposition Disposition (needs filled in before D/C Order can be placed): Home, Self Care
--- NOTE | 2024-01-24 12:23 | PCM.DC.SUM ---
Providers Date of Admission: 01/23/24 Date of Discharge: 01/24/24 Primary Care Physician: Dr. Heike Payne MD Reason For Visit: COPD Diagnosis Discharge Diagnosis (1) COPD exacerbation: Status: Chronic Code(s): J44.1 - Chronic obstructive pulmonary disease with (acute) exacerbation Plan 1. Acute exacerbation of COPD #2 coronary artery disease #3 essential hypertension #4 hypothyroidism Medications at Discharge Home Medications losartan 100 mg tablet 100 mg PO DAILY Blood pressure 10/14/15 amlodipine 10 mg tablet 10 mg PO DAILY heart 12/04/18 atorvastatin 40 mg tablet 40 mg PO QHS cholesterol 12/04/18 famotidine 40 mg tablet 40 mg PO BID allergies 12/04/18 levothyroxine 50 mcg tablet 50 mcg PO DAILY thyroid 12/04/18 nitroglycerin 0.4 mg sublingual tablet 0.4 mg sublingual Q5-15M PRN Chest Pain 12/04/18 fluticasone propionate 50 mcg/actuation nasal spray,suspension (Flonase Allergy Relief) 2 spray intranasal DAILY PRN seasonal allergies 12/30/19 trazodone 100 mg tablet 200 mg PO QHS for sleep 12/30/19 clonazepam 1 mg tablet 1 mg PO BID PRN Insomnia 07/04/21 aspirin 81 mg tablet,delayed release (Adult Aspirin Regimen) 81 mg PO DAILY 07/11/22 albuterol sulfate 90 mcg/actuation aerosol inhaler 2 puff inhalation Q6H PRN shortness of breath or wheezing #8.5 grams 01/24/24 azithromycin 500 mg tablet (Zithromax) 500 mg PO DAILY 3 days #3 tabs 01/24/24 prednisone 20 mg tablet 20 mg PO BID #14 tabs 01/24/24 Hospital Course Operations None Procedures None Summary of Care Provided Minutes Spent on Discharge: 31 Hospital Course: 79-year-old white male was seen in the emergency room at [facility] with complaints of shortness of breath. Patient states he was recently diagnosed with COPD and for the last week he had been feeling more short of breath. Labs obtained showed a normal CBC, patient's chemistry profile was unremarkable, beta natruretic peptide was 14.6. Patient's chest x-ray showed no acute abnormality, CT of the chest was obtained which showed scarring at the lung bases and hyperinflation suggesting COPD. Patient was placed into [facility], he was placed on bronchodilators and IV corticosteroids, patient's pulse ox was monitored. Patient improved during his hospitalization and did not require oxygen at the time of discharge from the hospital. Patient was seen and examined on 01/24/2024: On examination he appeared in good health and spirits. Vital signs as documented. Skin warm and dry and without overt rashes. Neck without JVD, neck was supple, trachea midline, thyroid was normal. Lungs clear bilaterally, normal air movement was noted. Heart exam notable for regular rhythm, normal sounds and absence of murmurs, rubs or gallops. Abdomen unremarkable and without evidence of organomegaly, masses, or abdominal aortic enlargement. Bowel sounds are present, abdomen is not distended. Extremities nonedematous, no cyanosis was noted, no clubbing was noted. Neuro: Cranial nerves II through XII are grossly intact, no focal motor deficits were noted, sensation to light touch and pinprick intact, motor exam 5/5 throughout. Psych: Patient is alert and oriented x3, he does not appear anxious or depressed, he does not appear agitated. Patient was discharged home in stable condition on 01/24/2024 Weight / BMI Weight Weight: 73.3 kg Body Mass Index (BMI) 23.1 ABG / Lab / Microbiology Data 01/24/24 06:55 01/24/24 06:55 Laboratory: Laboratory Results - last 24 hr 01/24/24 06:55: WBC 10.6, RBC 5.15, Hgb 15.8, Hct 46.3, MCV 89.9, MCH 30.7, MCHC 34.1, RDW Std Deviation 42.4, RDW Coeff of Jacky 12.8, Plt Count 175, MPV 10.6, Immature Gran % (Auto) 0.300, Neut % (Auto) 88.8 H, Lymph % (Auto) 8.3 L, [place] % (Auto) 2.5, Eos % (Auto) 0.0, Baso % (Auto) 0.1, Absolute Neuts (auto) 9.4 H, Absolute Lymphs (auto) 0.88, Nucleated RBC % 0, Sodium 140, Potassium 3.7, Chloride 109 H, Carbon Dioxide 24.0, Anion Gap 7, BUN 16, Creatinine 1.12, Estim Creat Clear Calc 57.03, Est GFR (MDRD) Af Amer 82, Est GFR (MDRD) Non-Af 68, BUN/Creatinine Ratio 14.3, Glucose 151 H, Calcium 9.2, Phosphorus 3.4, Magnesium 2.2 Microbiology: Microbiology 01/23/24 14:55 Mucosa - Nasopharyngeal Respiratory Panel (PCR) - Final D/C Instructions Discharge Diet: No restrictions Weight Bearing Status: Full weight bearing Meaningful Use Info Meaningful Use Meaningful Use Diagnoses (Choose all that apply): None applicable Ischemic Stroke Statin Dosing Therapy Reference: STATIN DOSE THERAPY REFERENCE: * Patients > 75 years receive moderate or high dose statin therapy. * Patients 75 years or YOUNGER should receive HIGH intensity statin dose unless contraindicated. You will be required to document reason for non-treatment if statin daily dose does not meet guidelines. HIGH DOSE STATIN THERAPY DAILY Atorvastatin > than or = to 40 mg Rosuvastatin > than or = to 20 mg Amlodipine + Atorvastatin > than or = to 2.5/40 mg Ezetimibe + Simvastatin 10/80 mg Simvastatin 80mg Discharge Plan Admission Admit Date/Time: 01/23/24 12:17 Primary Reason for Your Visit: exacerbation of COPD Attending Provider: Shane Pineda Primary Care Provider: Heike Payne Consulting Providers: Quincy Wright Discharge Orders/Prescriptions Prescriptions: New albuterol sulfate 90 mcg/actuation HFA aerosol inhaler 2 puff inhalation Q6H PRN (Reason: shortness of breath or wheezing) Qty: 8.5 0RF azithromycin [Zithromax] 500 mg tablet 500 mg PO DAILY 3 Days Qty: 3 0RF prednisone 20 mg tablet 20 mg PO BID Qty: 14 0RF Rx Instructions: take for seven days starting 01/25/24 Continued atorvastatin 40 mg tablet 40 mg PO QHS levothyroxine 50 mcg tablet 50 mcg PO DAILY amlodipine 10 mg tablet 10 mg PO DAILY nitroglycerin 0.4 mg tablet, sublingual 0.4 mg SUBLINGUAL Q5-15M PRN (Reason: Chest Pain) fluticasone propionate [Flonase Allergy Relief] 50 mcg/actuation spray,suspension 2 spray INTRANASAL DAILY PRN (Reason: seasonal allergies) trazodone 100 mg tablet 200 mg PO QHS clonazepam 1 mg tablet 1 mg PO BID PRN (Reason: Insomnia) losartan 100 MG tablet 100 mg PO DAILY famotidine 40 mg tablet 40 mg PO BID Patient Comments: gerd aspirin [Adult Aspirin Regimen] 81 mg tablet,delayed release (DR/EC) 81 mg PO DAILY Referrals / Follow Up: Heike Payne MD [Primary Care Provider] - Disposition Disposition (needs filled in before D/C Order can be placed): Home, Self Care Charges/Coding Visit Charges Inpatient E&M: 73593 Disch Hosp >30min
--- NOTE | 2024-01-24 12:33 | CASEMGMT ---
Order for pt DC placed. Pt is currently 95% on RA. 6-Click 22. This RN CM to pt room at this time. Pt is currently standing up in the room in no distress. Pt states that his FROY will be picking the pt up from the hospital today. Pt states that he feels returning home today with no additional needs. Pt denies the need for HHC, OP Tx, or CCN/ pt link. Pt denies further questions or concerns and is ready for DC today.
--- NOTE | 2024-01-24 12:44 | CASEMGMT ---
Met with patient to complete DANIELSON form. DANIELSON form explained to patient who voiced understanding and signed form. Original form placed in pt?s chart and copy provided to patient. Radha Munoz, Discharge Planning Asst
[2024-01-24 12:59] VITALS: BP 106/66; PULSE 80; RESP 16; TEMP 36.6; O2SAT 96
--- NOTE | 2024-01-24 14:53 | PHA.DC.MR.R ---
Pharmacy [place] Med Reconciliation Pharmacy Service has performed discharge medication reconciliation for this patient. The patient left prior to medication counselling. The patient's discharge medication list was reviewed for discrepancies and discrepancies were resolved. Medications at Discharge Home Medications losartan 100 mg tablet 100 mg PO DAILY Blood pressure 10/14/15 amlodipine 10 mg tablet 10 mg PO DAILY heart 12/04/18 atorvastatin 40 mg tablet 40 mg PO QHS cholesterol 12/04/18 famotidine 40 mg tablet 40 mg PO BID allergies 12/04/18 levothyroxine 50 mcg tablet 50 mcg PO DAILY thyroid 12/04/18 nitroglycerin 0.4 mg sublingual tablet 0.4 mg sublingual Q5-15M PRN Chest Pain 12/04/18 fluticasone propionate 50 mcg/actuation nasal spray,suspension (Flonase Allergy Relief) 2 spray intranasal DAILY PRN seasonal allergies 12/30/19 trazodone 100 mg tablet 200 mg PO QHS for sleep 12/30/19 clonazepam 1 mg tablet 1 mg PO BID PRN Insomnia 07/04/21 aspirin 81 mg tablet,delayed release (Adult Aspirin Regimen) 81 mg PO DAILY 07/11/22 albuterol sulfate 90 mcg/actuation aerosol inhaler 2 puff inhalation Q6H PRN shortness of breath or wheezing #8.5 grams 01/24/24 azithromycin 500 mg tablet (Zithromax) 500 mg PO DAILY 3 days #3 tabs 01/24/24 prednisone 20 mg tablet 20 mg PO BID #14 tabs 01/24/24
== END 2024-01-24 13:30 | disposition home or self-care (01) ==
LOC: ED 12:30 → MS3 12:39
PROVIDERS: Admitting Provider Internal Medicine; Emergency Provider Student in an Organized Health Care Education/Training Program; PCP Internal Medicine; Visit Provider Internal Medicine
DX: J44.1 Chronic obstructive pulmonary disease with (acute) exacerbation (principal); I25.10 Atherosclerotic heart disease of native coronary artery without angina pectoris; I10 Essential (primary) hypertension; E78.5 Hyperlipidemia, unspecified; Z87.891 Personal history of nicotine dependence; R09.02 Hypoxemia; I45.10 Unspecified right bundle-branch block; E03.9 Hypothyroidism, unspecified; Z79.890 Hormone replacement therapy; Z79.899 Other long term (current) drug therapy; Z79.82 Long term (current) use of aspirin
CPT/HCPCS: 71045; 71250; 80048; 83735; 83880; 84100; 84484; 85025; 85379; 87633; 93005; 94640; 94668; 96374; 96376; 99221; 99252; 99285; A4216; G0378; G0463

== ENCOUNTER 2024-07-21 12:19 | Emergency (ER) | payer MEDICARE, OTHER, SELFPAY ==
[2024-07-21 12:21] VITALS: BP 92/82; PULSE 77; RESP 16; TEMP 36.4; O2SAT 97; BMI 23.3
--- NOTE | 2024-07-21 13:18 | ED.VIS.GI ---
HPI HPI - GI History of Present Illness Chief Complaint: Diarrhea Informant: patient Abdominal Pain/Flank Pain Onset: Days Context: Gradual Onset Timing: Intermittent Quality: Cramping Location: Diffuse Worsened by: Nothing Relieved by: Nothing Nausea/Vomiting/Emesis GI Symptom: Negative for Nausea or Vomiting Diarrhea/Melena/Hematochezia GI Symptom: Positive for Diarrhea; Negative for Melena or Hematochezia Onset: Days (5) Stool Quality: Positive for Watery Associated Symptoms Associated Symptoms: Positive for Frequency and Urgency; Negative for Dysuria or Hematuria Narrative Narrative: Patient presents with diarrhea and abdominal pain that has been getting worse for the last 5 days. Patient states he was scheduled for a CT scan today but then was referred to the emergency department because they felt he was too dehydrated. Patient states that he rescheduled his CT scan for next week. Patient states his diarrhea is watery. Patient states that every time he eats he gets diarrhea afterwards. Patient denies any nausea or vomiting. Patient admits to some subjective chills but denies any fevers. Patient admits to some urinary urgency and frequency. [facility] Medical History Coronary artery disease Former smoker Asthma COPD (chronic obstructive pulmonary disease) Hypertension Stroke/cerebrovascular accident TIA (transient ischemic attack) Thoracic aortic aneurysm without rupture (~10/13/15) Claudication of both lower extremities Fatigue Nonruptured zhang aneurysm Snoring Hearing loss in left ear Disorder of bone and cartilage Anxiety Cerebellar atrophy Myocardial infarction, old History of hepatitis C Psychophysiological insomnia Depression Carotid artery occlusion (~06/2011) Atherosclerosis of coronary artery of grindstone heart without angina pectoris Vertebral artery aneurysm (~06/2011) Alopecia Essential hypertension Hypothyroidism Vertigo Hyperlipidemia Home Medications ?Medication ?Instructions ?Recorded ?Last Taken ?Type losartan 100 mg tablet 100 mg PO DAILY Blood pressure 10/14/15 01/23/24 History amlodipine 10 mg tablet 10 mg PO DAILY heart 12/04/18 01/23/24 History atorvastatin 40 mg tablet 40 mg PO QHS cholesterol 12/04/18 01/22/24 History famotidine 40 mg tablet 40 mg PO BID allergies 12/04/18 01/23/24 History levothyroxine 50 mcg tablet 50 mcg PO DAILY thyroid 12/04/18 01/23/24 History nitroglycerin 0.4 mg sublingual 0.4 mg sublingual Q5-15M PRN Chest 12/04/18 Unknown History tablet Pain fluticasone propionate 50 2 spray intranasal DAILY PRN 12/30/19 Unknown History mcg/actuation nasal seasonal allergies spray,suspension (Flonase Allergy Relief) trazodone 100 mg tablet 200 mg PO QHS for sleep 12/30/19 01/22/24 History clonazepam 1 mg tablet 1 mg PO BID PRN Insomnia 07/04/21 01/22/24 History aspirin 81 mg tablet,delayed 81 mg PO DAILY 07/11/22 Unknown History release (Adult Aspirin Regimen) albuterol sulfate 90 mcg/actuation 2 puff inhalation Q6H PRN 01/24/24 Unknown Rx aerosol inhaler shortness of breath or wheezing #8.5 grams azithromycin 500 mg tablet 500 mg PO DAILY 3 days #3 tabs 01/24/24 Unknown Rx (Zithromax) prednisone 20 mg tablet 20 mg PO BID #14 tabs 01/24/24 Unknown Rx Allergy/AdvReac Type Severity Reaction Status Date / Time No Known Allergies Allergy Verified 07/21/24 12:21 Family History Father CHF (congestive heart failure) Mother Cancer stomach Surgical History History of coronary artery stent placement Presence of stent in coronary artery History of hemorrhoidectomy Benign neoplasm of large bowel Social History Smoking Status: Former smoker how long ago did patient quit smokin years ago alcohol intake: never substance use type: does not use caffeine: Yes Type: coffee Number of servings: 5 ROS ROS ED Constitutional Constitutional ED: Reports chills; Denies fever(s) Eyes Eyes: Denies blurry vision or change in vision ENT ENT ED: Reports rhinorrhea and sore throat Cardiovascular Cardiovascular: Denies chest pain or palpitations Respiratory/Chest Respiratory/Chest: Reports cough; Denies dyspnea Gastrointestinal Gastrointestinal: Reports abdominal pain and diarrhea; Denies nausea or vomiting Genitourinary Genitourinary ED: Denies dysuria or hematuria Musculoskeletal Musculoskeletal: Denies back pain or neck pain Integumentary Denies abscess or rash Neurologic Neurologic: Denies headache(s) or weakness Allergic/Immunologic Allergic/Immunologic ED: Denies mouth swelling or urticaria EXAM Physical Exam Const Vital Signs: 07/21/24 12:21 07/21/24 14:21 Temperature 97.5 F L Temperature Source Temporal Pulse Rate 77 71 Respiratory Rate 16 16 Blood Pressure 92/82 H 99/81 H Blood Pressure Mean 85 87 Pulse Ox 97 98 Oxygen Delivery Method Room Air Positive well nourished and well developed General Appearance ED: well developed and NAD HEENT Reports dry mucous membranes Mouth ED: Yes dry mucous membranes Mouth: dry mucous membranes Neck supple and no JVD Resp normal respiratory effort and clear to auscultation bilaterally Cardio regular rate and regular rhythm GI non-tender and non-distended Palpation: soft Neuro CN's II-XII intact bilaterally, moves all extremities and no sensory deficits noted Sensorium / Orientation: alert Motor Exam: strength 5/5 throughout Psych mental status grossly normal MDM MDM MDM Narrative Medical decision making narrative: Differential diagnosis includes gastroenteritis, colitis, diverticulitis, dehydration, electrolyte abnormality, urinary tract infection, and viral illness. CBC will be obtained to assess for leukocytosis and anemia. Comprehensive metabolic profile will be obtained to assess for electrolyte abnormality, renal function, and hepatic function. Urinalysis will be obtained to assess for urinary tract infection and hematuria. Stool for enteric pathogens, fecal leukocytes, and C. difficile will be obtained to assess for bacterial infection. Lab Data Attestation: I reviewed the patient's lab results. Lab results narrative: CBC was reviewed and was within normal limits. Comprehensive metabolic profile was reviewed and was essentially within normal limits. Urinalysis was reviewed. There is no evidence of urinary tract infection or hematuria. Labs: Laboratory Results - last 24 hr 07/21/24 07/21/24 13:34 15:27 WBC 7.5 RBC 4.96 Hgb 14.9 Hct 44.8 MCV 90.3 MCH 30.0 MCHC 33.3 RDW Std Deviation 43.7 RDW Coeff of Jacky 13.2 Plt Count 176 MPV 10.2 Immature Gran % (Auto) 0.300 Neut % (Auto) 65.9 Lymph % (Auto) 22.1 [place] % (Auto) 8.4 Eos % (Auto) 2.9 Baso % (Auto) 0.4 Absolute Neuts (auto) 5.0 Absolute Lymphs (auto) 1.66 Nucleated RBC % 0 Sodium 142 Potassium 3.9 Chloride 109 H Carbon Dioxide 30.0 Anion Gap 4 L BUN 10 Creatinine 1.05 Estim Creat Clear Calc 60.83 Est GFR (MDRD) Af Amer 88 Est GFR (MDRD) Non-Af 73 BUN/Creatinine Ratio 9.5 L Glucose 95 Calcium 8.9 Total Bilirubin 0.60 AST 15 ALT 18 Alkaline Phosphatase 89 Total Protein 6.7 Albumin 3.6 Globulin 3.1 Albumin/Globulin Ratio 1.2 Urine Color Yellow Urine Clarity Clear Urine pH 6.0 Ur Specific [place] 1.010 Urine Protein Negative Urine Glucose (UA) Normal Urine Ketones Negative Urine Occult Blood 10 H Urine Nitrite Negative Urine Bilirubin Negative Urine Urobilinogen Normal Ur Leukocyte Esterase Negative Urine RBC 0 SEEN Urine WBC 0-5 SEEN Ur Squamous Epith Cells 0 SEEN Urine Bacteria 0 SEEN Urine Mucus 0 SEEN Treatment and Re-Evaluation :: Patient was given IV fluids. Patient was unable to provide a stool specimen here in the emergency department. Patient was advised that this is most likely a viral illness. Patient was instructed to drink plenty of fluids. Patient was instructed to advance his diet as tolerated. Patient was instructed to follow-up with his primary care physician in 5 to 7 days. Patient understood and was agreeable with the plan. All questions were answered. Discharge Plan Triage Chief Complaint: Diarrhea ED Provider: Harley Quintana Dx/Rx/DC Orders Clinical Impression: Diarrhea, Viral illness Instructions: ED Diarrhea, Unknown Cause, ED Viral Syndrome (Adult) Prescriptions: No Action atorvastatin 40 mg tablet 40 mg PO QHS levothyroxine 50 mcg tablet 50 mcg PO DAILY amlodipine 10 mg tablet 10 mg PO DAILY nitroglycerin 0.4 mg tablet, sublingual 0.4 mg SUBLINGUAL Q5-15M PRN (Reason: Chest Pain) fluticasone propionate [Flonase Allergy Relief] 50 mcg/actuation spray,suspension 2 spray INTRANASAL DAILY PRN (Reason: seasonal allergies) trazodone 100 mg tablet 200 mg PO QHS clonazepam 1 mg tablet 1 mg PO BID PRN (Reason: Insomnia) losartan 100 MG tablet 100 mg PO DAILY famotidine 40 mg tablet 40 mg PO BID Patient Comments: gerd albuterol sulfate 90 mcg/actuation HFA aerosol inhaler 2 puff inhalation Q6H PRN (Reason: shortness of breath or wheezing) Qty: 8.5 0RF azithromycin [Zithromax] 500 mg tablet 500 mg PO DAILY 3 Days Qty: 3 0RF prednisone 20 mg tablet 20 mg PO BID Qty: 14 0RF Rx Instructions: take for seven days starting 01/25/24 aspirin [Adult Aspirin Regimen] 81 mg tablet,delayed release (DR/EC) 81 mg PO DAILY Primary Care Provider: Heike Payne Referrals: Heike Payne MD [Primary Care Provider] - 5-7 Days [facility] OPERATIONS AND MAINTENANCE SUPERVISOR, OPERATIONS AND MAINTENANCE SUPERVISOR-C [Non-Staff] - 5-7 Days ([facility]) Print Language: Welsh Disposition Disposition: Home, Self Care
[2024-07-21 13:46] LABS: Absolute Lymphocyte Count 1.66 X10^3/uL (0.83-4.51); Basophil# 0.03 X10^3/uL; Basophil% 0.4 % (0-1); Eosinophil# 0.22 X10^3/uL; Eosinophils% 2.9 % (0-5); Hematocrit 44.8 % (40-54); Hemoglobin 14.9 g/dL (13.0-16.5); Lymphocyte # 1.66 X10^3/ul (0.83-4.51); Lymphocyte % 22.1 % (19-41); Mean Corp Hgb Conc 33.3 g/dL (32-36); Mean Corpuscular Volume 90.3 fL (80-94); Mean Platelet Vol. 10.2 fl (6.2-12.0); Monocyte# 0.63 X10^3/uL; Monocyte% 8.4 % (0-10); NRBC Flagged by Analyzer 0 % (0-5); Neutrophil # 4.95 X10^3/uL (2.7-7.7); Neutrophil % 65.9 % (47-70); Platelet Count 176 K/mm3 (150-450); RBC Distribution Width CV 13.2 % (11.6-14.6); RBC Distribution Width SD 43.7 fl (35.1-43.9); Red Blood Count 4.96 M/mm3 (4.6-6.2); White Blood Count 7.5 K/mm3 (4.4-11.0)
[2024-07-21] MEDS: 0.9% Normal Saline (1000mL) 1,000 ML 1000 ML IV (14:02)
[2024-07-21 14:04] LABS: ALB/GLOB Ratio 1.2 RATIO (0.9-2.4); AST(SGOT) 15 U/L (15-37); Alanine Aminotransfer ALT/SGPT 18 U/L (16-61); Albumin, Serum 3.6 g/dL (3.2-5.0); Alkaline Phosphatase 89 U/L (45-117); Anion Gap 4 (5-15); BUN 10 mg/dL (7-18); BUN/Creat Ratio 9.5 RATIO (10-20); Calcium,Total 8.9 mg/dL (8.5-10.1); Chloride 109 mmol/L (98-107); Creatinine, Serum 1.05 mg/dL (0.70-1.30); EST Glomerular Filtration Rate 73 mL/min (>60); Est Glom Filt Rate - Afr Amer 88 mL/min (>60); Estimated Creatinine Clearance 60.83 ml/min; Globulin 3.1 g/dL (2.2-4.2); Glucose 95 mg/dL (74-106); Potassium 3.9 mmol/L (3.5-5.1); Protein, Total 6.7 g/dL (6.4-8.2); Sodium Level 142 mmol/L (136-145)
[2024-07-21 14:21] VITALS: BP 99/81; PULSE 71; RESP 16; O2SAT 98
[2024-07-21 15:42] LABS: Bacteria 0 SEEN /hpf (None Seen); Mucous, Urine 0 SEEN /hpf (<or=2+); Red Blood Cells-Urine 0 SEEN /hpf (0-5); Squamous Epithelial Cells - UA 0 SEEN /hpf (0-5)
[2024-07-21 15:45] LABS: Color, Urine Yellow (Yellow); Glucose, Dipstick Normal (Normal); Ketone-Dipstick Negative (Negative); Leukocyte Esterase-Dipstick Negative /ul (Negative); Nitrite-Dipstick Negative (Negative); Occult Blood-Urine 10 /ul (Negative); Protein-Dipstick Negative (Negative); Urine Bilirubin Dipstick Negative (Negative); Urine Clarity Clear (Clear); Urine Urobilinogen Normal (Normal)
[2024-07-21 16:19] LABS: White Blood Cells 0-5 SEEN /hpf (0-5)
--- NOTE | 2024-07-21 16:53 | ED.RN ---
Patient was seen roaming halls, this RN educated pt to remain in room for pt privacy and to prevent spread of virus.
== END 2024-07-21 16:53 | disposition home or self-care (01) ==
PROVIDERS: Emergency Provider Emergency Medicine; PCP Internal Medicine; Referring Provider Emergency Medicine; Visit Provider Emergency Medicine
DX: B34.9 Viral infection, unspecified (principal); J44.9 Chronic obstructive pulmonary disease, unspecified; I25.10 Atherosclerotic heart disease of native coronary artery without angina pectoris; I10 Essential (primary) hypertension; I25.2 Old myocardial infarction; Z95.5 Presence of coronary angioplasty implant and graft; Z79.52 Long term (current) use of systemic steroids; Z79.82 Long term (current) use of aspirin; Z79.899 Other long term (current) drug therapy; Z86.73 Personal history of transient ischemic attack (TIA), and cerebral infarction without residual deficits; Z87.891 Personal history of nicotine dependence
CPT/HCPCS: 80053; 81001; 85025; 96360; 99283; A4216

== ENCOUNTER → 2024-09-23 | Outpatient (CLI) | payer MEDICARE, OTHER, SELFPAY ==
--- NOTE | 2024-09-23 09:51 | CDU_ITS ---
Reason For Study Reason For Study: Rt ICA Occlusion Rt. Velocities/BP Lt. Velocities/BP Prox CCA 44.6/7.3 cm/sec. Prox CCA 63.2/18.8 cm/sec. Mid CCA 46.8/11.7 cm/sec. Mid CCA 82.1/27.3 cm/sec. Dist CCA 39.1/11.7 cm/sec. Dist CCA 64.1/25.4 cm/sec. ICA appears occluded. Known Occlusion. BULB - 53.8/24.5 cm/sec. Prox ECA 88.6/16.0 cm/sec. Prox ICA 129.3/50.3 cm/sec. Rt. Vert. 62.2/20.4 cm/sec. Mid ICA 138.1/52.5 cm/sec. Dist ICA 100.2/40.0 cm/sec. Lt. ICA/CCA = 1.7. Prox ECA 88.9/18.6 cm/sec. Lt. Vert. 39.1/9.9 cm/sec. Right Extracranial There is homogeneous, smooth atherosclerotic plaque noted in the right common carotid artery. There is heterogeneous, irregular atherosclerotic plaque noted in the right internal carotid artery. The right internal carotid artery is occluded. There is heterogeneous, irregular atherosclerotic plaque noted in the right external carotid artery. Antegrade flow is noted in the right vertebral artery. Left Extracranial There is heterogeneous, irregular atherosclerotic plaque noted in the left common carotid artery. There is heterogeneous, irregular atherosclerotic plaque noted in the left internal carotid artery. There is heterogeneous, irregular atherosclerotic plaque noted in the left external carotid artery. Antegrade flow is noted in the left vertebral artery. Procedure Carotid Duplex [id number]. This is a Carotid Duplex examination using B-mode, color flow and specral Doppler. The exam was diagnostic. Exam performed in department. VL/Carotid Duplex Ultrasound Interpretation Summary Right internal carotid occluded. Moderate (50-69%) stenosis left extracranial i nternal carotid. Patent and antegrade vertebrals bilaterally. Ordering Physician: Jarod Davies Referring Physician: Heike Payne Performed By: Mode Lopez RVT
== END | disposition home or self-care (01) ==
PROVIDERS: PCP Internal Medicine; Referring Provider Surgery Vascular Surgery; Visit Provider Surgery Vascular Surgery
DX: I65.23 Occlusion and stenosis of bilateral carotid arteries (principal); Z86.73 Personal history of transient ischemic attack (TIA), and cerebral infarction without residual deficits
CPT/HCPCS: 93880

== ENCOUNTER 2025-01-05 16:16 | Observation (INO) | payer MEDICARE, OTHER, SELFPAY ==
[2025-01-05] VITALS (14 sets, daily range): BP systolic 116–141; BP diastolic 76–104; PULSE 72–90; RESP 14–18; TEMP 36.6–37.4; O2SAT 91–97; BMI 22.4; BMI 25.4
--- NOTE | 2025-01-05 16:22 | CT_ITS ---
PROCEDURE: STROKE BRAIN/HEAD WITHOUT CONT 01/05/2025 REASON FOR EXAM: NEURO DEFICIT, ACUTE, STROKE SUSPECTED TECHNIQUE: STROKE BRAIN/HEAD WITHOUT CONT Coronal and Sagittal reconstruction series were provided. One or more dose reduction techniques were used (e.g., Automated exposure control, adjustment of the mA and/or kV according to patient size, use of iterative reconstruction technique. RADIATION DOSE SUMMARY: CTDlvol: 45.0 mGy DLP: 847 mGycm COMPARISON: MRI brain and CT head on 06/23/2022 FINDINGS: Brain: No acute intracranial hemorrhage, mass effect, or midline shift. Low density in the periventricular white matter suggests mild chronic small vessel ischemic changes. CSF Spaces: Mild generalized cerebral atrophy Sinuses/Mastoids: Clear at visualized levels Bones: Unremarkable. CT/STROKE Brain/Head without Cont IMPRESSION: No evidence of an acute intracranial abnormality. Consider MRI if there is per sistent concern for acute ischemia. The critical information above was relayed directly by me by telephone to Jose Tate on 01/05/2025 at 4:34 pm with readback verification. Reading Location: [id number]
--- NOTE | 2025-01-05 16:22 | EKG12_ITS ---
Test Reason : stroke alert Blood Pressure : */* mmHG Vent. Rate : 75 BPM Atrial Rate : 75 BPM P-R Int : 142 ms QRS Dur : 112 ms QT Int : 412 ms P-R-T Axes : 10 -39 12 degrees QTcB Int : 460 ms Normal sinus rhythm Left axis deviation Abnormal ECG Confirmed by INDRA VELAZQUEZ, AISHA ([id number]), scientific editor TETO MEADE ([id number]) on 01/06/2025 11:26:30 AM Referred By: Jose Baldwin Confirmed By: AISHA BURRELL MD
--- NOTE | 2025-01-05 16:24 | CT_ITS ---
PROCEDURE: STROKE CTA HEAD AND NECK W/CON 01/05/2025 REASON FOR EXAM: NEURO DEFICIT, ACUTE, STROKE SUSPECTED TECHNIQUE: STROKE CTA HEAD AND NECK W/CON Multiplanar Sagittal and Coronal images were obtained. 3D post processing was performed CONTRAST: 100 mL Isovue 370 One or more dose reduction techniques were used (e.g., Automated exposure control, adjustment of the mA and/or kV according to patient size, use of iterative reconstruction technique). RADIATION DOSE SUMMARY: CTDlvol: 20.8 mGy DLP: 780 mGycm COMPARISON: CTA head and neck 06/23/2022 FINDINGS: Aortic Arch: Moderate atherosclerotic plaque. Brachiocephalic and Subclavians: Mild atherosclerotic plaque without significant stenosis. RIGHT Carotid: Right CCA: Mild calcified and soft plaque. Right ICA: Complete occlusion throughout, unchanged from 06/23/2022. Maximum stenosis (NASCET): 100% Right ECA: Unremarkable LEFT Carotid: Left CCA: Mild calcified and soft plaque. Left ICA: Moderate calcified and soft plaque. Maximum stenosis (NASCET): <50 % Left ECA: Unremarkable. Vertebrals: Codominant. Arise from the subclavians. Both vertebrals form the basilar. RIGHT Vertebral: There is aneurysmal dilation with peripheral calcification at the V4 segment of the right vertebral artery measuring up to 5 mm (series 2, image 353), unchanged. LEFT Vertebral: Calcification at the V4 segment results in at least 70% luminal narrowing subjectively, also unchanged. Anatomy: The right MCA is supplied by the left internal carotid artery. Anterior cerebral arteries: Unremarkable: Middle cerebral arteries: Unremarkable. Basilar artery: Unremarkable. Posterior cerebral arteries: Unremarkable. Other major branches of the posterior circulation: Unremarkable. Major venous structures: Unremarkable. Other findings: Neck: No lymphadenopathy. Lungs: Centrilobular emphysema. Bones: Degenerative changes. CT/STROKE CTA Head AND Neck W/Con IMPRESSION: 1. No new large vessel occlusion or hemodynamically significant narrowing. 2. 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 Reading Location: [id number]
[2025-01-05 16:50] LABS: Absolute Lymphocyte Count 0.43 X10^3/uL (0.83-4.51); Basophil# 0.02 X10^3/uL; Basophil% 0.3 % (0-1); Eosinophil# 0.07 X10^3/uL; Eosinophils% 1.2 % (0-5); Hematocrit 36.2 % (40-54); Hemoglobin 11.8 g/dL (13.0-16.5); Lymphocyte # 0.43 X10^3/ul (0.83-4.51); Lymphocyte % 7.3 % (19-41); Mean Corp Hgb Conc 32.6 g/dL (32-36); Monocyte# 0.34 X10^3/uL; Monocyte% 5.8 % (0-10); NRBC Flagged by Analyzer 0 % (0-5); Neutrophil # 4.99 X10^3/uL (2.7-7.7); Neutrophil % 85.1 % (47-70); POSITIVE DIFFERENTIAL YES; Platelet Count 137 K/mm3 (150-450); RBC Distribution Width CV 13.4 % (11.6-14.6); RBC Distribution Width SD 46.9 fl (35.1-43.9); Red Blood Count 3.81 M/mm3 (4.6-6.2); White Blood Count 5.9 K/mm3 (4.4-11.0)
[2025-01-05 17:02] LABS: Anion Gap 12 (5-15); BUN 14 mg/dL (4-19); Calcium,Total 8.4 mg/dL (7.6-11.0); Carbon Dioxide 22.5 mmol/L (21.0-32.0); Chloride 103 mmol/L (98-108); Creatinine, Serum 1.11 mg/dL (0.70-1.20); EST Glomerular Filtration Rate 68 (>60); Estimated Creatinine Clearance 55.08 ml/min (50-250); Glucose 112 mg/dL (70-99); International Normalized Ratio 1.1; Potassium 3.4 mmol/L (3.3-5.1); Prothrombin Time (Protime)PT. 14.9 SECONDS (11.7-14.9); Sodium Level 137 mmol/L (133-145); Troponin T High Sensitivity 15 ng/L (<=22)
--- NOTE | 2025-01-05 17:26 | ED.VIS.STROK ---
HPI History of Present Illness Chief Complaint: Stroke Alert Narrative Narrative: 80-year-old male past medical history of previous stroke presents via EMS with difficulty with speech, slurred speech, and confusion with questionable expressive aphasia. Per EMS, last known well time initially was 6 PM yesterday evening. That is when his relatives spoke to him on the phone. They were called to the patient's home and upon arrival, he appeared confused, with an expressive aphasia and stuttering of his words and speech. Patient denies any headache, no somatic symptoms. He arrives as a prehospital stroke team. [facility] Medical History Cancer of prostate Coronary artery disease Former smoker Asthma COPD (chronic obstructive pulmonary disease) Hypertension Stroke/cerebrovascular accident TIA (transient ischemic attack) Thoracic aortic aneurysm without rupture (~10/13/15) Claudication of both lower extremities Fatigue Nonruptured zhang aneurysm Snoring Hearing loss in left ear Disorder of bone and cartilage Anxiety Cerebellar atrophy Myocardial infarction, old History of hepatitis C Psychophysiological insomnia Depression Carotid artery occlusion (~06/2011) Atherosclerosis of coronary artery of [place] heart without angina pectoris Vertebral artery aneurysm (~06/2011) Alopecia Essential hypertension Hypothyroidism Vertigo Hyperlipidemia Home Medications ?Medication ?Instructions ?Recorded ?Last Taken ?Type losartan 100 mg tablet 100 mg PO DAILY Blood pressure 10/14/15 01/05/25 History amlodipine 10 mg tablet 10 mg PO DAILY heart 12/04/18 01/05/25 History atorvastatin 40 mg tablet 40 mg PO QHS cholesterol 12/04/18 01/03/25 History famotidine 40 mg tablet 40 mg PO BID allergies 12/04/18 01/05/25 History levothyroxine 50 mcg tablet 50 mcg PO DAILY thyroid 12/04/18 01/03/25 History nitroglycerin 0.4 mg sublingual 0.4 mg sublingual Q5-15M PRN Chest 12/04/18 Unknown History tablet Pain trazodone 100 mg tablet 200 mg PO QHS for sleep 12/30/19 01/03/25 History clonazepam 1 mg tablet 1 mg PO BID PRN Insomnia 07/04/21 01/03/25 History aspirin 81 mg tablet,delayed 81 mg PO DAILY 07/11/22 01/03/25 History release (Adult Aspirin Regimen) tamsulosin 0.4 mg capsule (Flomax) 0.4 mg PO DAILY 01/05/25 01/03/25 History Allergy/AdvReac Type Severity Reaction Status Date / Time No Known Allergies Allergy Verified 01/05/25 20:16 Family History Father CHF (congestive heart failure) Mother Cancer stomach Surgical History History of coronary artery stent placement Presence of stent in coronary artery History of hemorrhoidectomy Benign neoplasm of large bowel Social History Smoking Status: Former smoker how long ago did patient quit smokin years ago alcohol intake: never substance use type: does not use caffeine: Yes Type: coffee Number of servings: 5 ROS ROS ED ROS Narrative Review of systems positive for slurred speech and expressive aphasia with confusion. Patient denies headache or other symptoms. EXAM Physical Exam Narrative Exam Narrative: Afebrile. Vital signs noted. Nontoxic-appearing. Cardiovascular examination reveals a regular rate and rhythm. Lungs are clear to auscultation bilaterally. Abdomen is soft and nontender with normoactive bowel sounds. Neurological examination is nonfocal, nonlateralizing. NIH stroke scale is 0. No expressive aphasia or slurred speech. No facial droop. No pedal edema. Const Vital Signs: 01/05/25 16:16 01/05/25 16:21 01/05/25 16:22 Temperature 97.9 F 99.3 F H Temperature Source Temporal Oral Pulse Rate 90 90 75 Respiratory Rate 18 16 16 Blood Pressure 136/78 H 136/78 H 135/86 H Blood Pressure Mean 97 97 102 Pulse Ox 94 94 91 Oxygen Delivery Method Room Air Room Air Oxygen Flow Rate (L/min) 01/05/25 16:35 01/05/25 16:39 01/05/25 16:52 Temperature Temperature Source Pulse Rate 73 Respiratory Rate 16 Blood Pressure 129/82 H Blood Pressure Mean 97 Pulse Ox 95 97 95 Oxygen Delivery Method Room Air Nasal Cannula Nasal Cannula Oxygen Flow Rate (L/min) 2 2 01/05/25 17:22 01/05/25 17:30 01/05/25 17:58 Temperature 99.3 F H Temperature Source Pulse Rate 72 78 80 Respiratory Rate 17 15 18 Blood Pressure 135/88 H 141/93 H 138/79 H Blood Pressure Mean 103 109 98 Pulse Ox 95 97 95 Oxygen Delivery Method Room Air Room Air Oxygen Flow Rate (L/min) 01/05/25 18:00 Temperature Temperature Source Pulse Rate 83 Respiratory Rate 17 Blood Pressure 138/79 H Blood Pressure Mean 98 Pulse Ox 95 Oxygen Delivery Method Nasal Cannula Oxygen Flow Rate (L/min) 2 MDM MDM MDM Narrative Medical decision making narrative: Prehospital stroke team had been initiated. Patient sent to the CT scanner for CT of the brain and CTA of the head and neck. RN clarified with relative, knees, that she spoke to him at 1 PM this afternoon, putting him inside the window for TNK if indicated. I discussed patient with Dr. Wu with telestroke neurology. His symptoms have resolved. His NIH stroke scale is 0. As he has no debilitating deficit or speech deficit, TNK is not indicated. I received a call from the radiologist regarding the CT of the brain which is negative for acute hemorrhage. I reviewed the radiology report of the CTA of the head and neck. There is no significant change from CTA in 2021 where there is noted aneurysm and complete occlusion of the right internal carotid artery, and narrowing of the left vertebral artery V4 segment. I reviewed his laboratory work, and he has normal white count of 5.9 with hemoglobin 11.8, hematocrit 36.2, platelet count slightly low at 137. Coagulation studies are normal with INR of 1.1 and a PTT of 27.0, BMP grossly unremarkable except for glucose of 112 and normal BUN and creatinine. High-sensitivity troponin normal at 15. EKG obtained and interpreted by myself independently as normal sinus rhythm at 75 bpm without ectopy or acute ST changes. No STEMI. Given that his symptoms have resolved, I discussed patient with the hospitalist for observation and stroke workup. I discussed the patient with Dr. Sulema Schultz. Disposition is assigned observation on the PCU. Patient is in stable condition. History & Record Review Discussion w/independent historian: Patient Lab Data Attestation: I reviewed the patient's lab results. Labs: Laboratory Results - last 24 hr 01/05/25 16:30 WBC 5.9 RBC 3.81 L Hgb 11.8 L Hct 36.2 L MCV 95.0 H MCH 31.0 MCHC 32.6 RDW Std Deviation 46.9 H RDW Coeff of Jacky 13.4 Plt Count 137 L MPV 10.0 Immature Gran % (Auto) 0.300 Neut % (Auto) 85.1 H Lymph % (Auto) 7.3 L [place] % (Auto) 5.8 Eos % (Auto) 1.2 Baso % (Auto) 0.3 Absolute Neuts (auto) 5.0 Absolute Lymphs (auto) 0.43 L Nucleated RBC % 0 PT 14.9 INR 1.1 APTT 27.0 Sodium 137 Potassium 3.4 Chloride 103 Carbon Dioxide 22.5 Anion Gap 12 BUN 14 Creatinine 1.11 Estim Creat Clear Calc 55.08 Est GFR (MDRD) Non-Af 68 BUN/Creatinine Ratio 13.0 Glucose 112 H Calcium 8.4 Troponin T High Sens 15 Radiography Diagnostic Testing: Clinical Impression(s) from Imaging Studies Brain CT 01/05/25 16:22 IMPRESSION: No evidence of an acute intracranial abnormality. Consider MRI if there is persistent concern for acute ischemia. The critical information above was relayed directly by me by telephone to Jose Baldwin on 01/05/2025 at 4:34 pm with readback verification. Reading Location: [facility] Head/Neck CTA 01/05/25 16:24 IMPRESSION: 1. No new large vessel occlusion or hemodynamically significant narrowing. 2. 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 Reading Location: [facility] Management Discussion w/another healthcare provider: Hospitalist and Mail Handler Assistant (Teleneurology) Discharge Plan Dx/Rx/DC Orders Clinical Impression: Expressive aphasia, Confusion, Stuttering, Brain TIA Disposition Disposition: Acute Care Hospital [facility] Discharge Date/Time: 01/05/25 18:56 NIHSS NIHSS 1a. Level of Consciousness: 0 - Alert; keenly responsive 1b. LOC Questions: 0 - Answers BOTH questions correctly 1c. LOC Commands: 0 - Performs BOTH tasks correctly 2. Best Gaze: 0 - Normal 3. Visual: 0 - No visual loss 4. Facial Palsy: 0 - Normal symmetrical movements 5a. Left Arm: 0 - No drift; arm holds 90 (or 45) degrees for full 10 seconds 5b. Right Arm: 0 - No drift; arm holds 90 (or 45) degrees for full 10 seconds 6a. Left Le - No drift; leg holds 30-degree position for full 5 seconds 6b. Right Le - No drift; leg holds 30-degree position for full 5 seconds 7. Limb Ataxia: 0 - Absent 8. Sensory: 0 - Normal; no sensory loss 9. Best Language: 0 - No aphasia; normal 10. Dysarthria: 0 - Normal 11. Extinction and Inattention: 0 - No abnormality Total: 0 Stroke Questions Stroke Team Activated: Yes Reviewed Inclusion/Exclusion criteria: Yes Was Patient considered for Endovascular Intervention?: No IV Thrombolytic Administered: No No contraindications from thrombolytic administration: No (No debilitating deficit, no speech deficit)
--- NOTE | 2025-01-05 18:04 | PCM.HP.STD ---
HPI - General General Date of Admission: 01/05/25 Date of Service: 01/05/25 Chief Complaint: Confusion and expressive aphasia HPI Narrative SHASHANK BOB, is a 80-year-old male history of CVA, chronic carotid artery occlusion, coronary artery disease with stenting, prostate cancer status post radiation finished 12/04/2024, hypertension, BPH, insomnia, hypothyroidism presented [facility] ED 01/05/2025 via EMS as a stroke alert due to difficulty with speech and confusion. Relatives report his last known well was 1 PM so stroke neurologist consulted. Per EMS upon arrival patient was confused with expressive aphasia and was stuttering his words and speech. In the ED patient temperature 97.9, heart rate of 90 with blood pressure 136/78, respiratory rate 18 and pulse ox 94% on room air. BMP without any overtly concerning findings, troponin of 15, CBC with a hemoglobin of 11.8 with baseline seem to be in the 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 Again these were unchanged from previous. Stroke neurology recommended admission for stroke workup. Hospitalist contacted for admission. Patient evaluated at bedside with family present, reportedly patient was in his normal health, at baseline he is very active and works in his yard and goes out to get food usually twice a day, but when his daughter called him earlier he was confused and could not get his words out so she called EMS. Patient now back to baseline and awake and alert and answering questions appropriately and daughter at bedside reports he is back to baseline. Patient reports he did not sleep well last night and forgot to take his medicines so he feels little tired and like both of his eyes are little bit very, denies any numbness or tingling or focal weakness. Head a little bit of diarrhea earlier today but mentions something about one of his medications potentially causing that and his outpatient doctor saying he could hold off on that medication. Patient does urinate frequently since his radiation but this is unchanged. No nausea or vomiting no abdominal pain. Patient denies headache. [facility] Medical History Cancer of prostate Coronary artery disease Former smoker Asthma COPD (chronic obstructive pulmonary disease) Hypertension Stroke/cerebrovascular accident TIA (transient ischemic attack) Thoracic aortic aneurysm without rupture (~10/13/15) Claudication of both lower extremities Fatigue Nonruptured zhang aneurysm Snoring Hearing loss in left ear Disorder of bone and cartilage Anxiety Cerebellar atrophy Myocardial infarction, old History of hepatitis C Psychophysiological insomnia Depression Carotid artery occlusion (~06/2011) Atherosclerosis of coronary artery of [place] heart without angina pectoris Vertebral artery aneurysm (~06/2011) Alopecia Essential hypertension Hypothyroidism Vertigo Hyperlipidemia Home Medications ?Medication ?Instructions ?Recorded ?Last Taken ?Type losartan 100 mg tablet 100 mg PO DAILY Blood pressure 10/14/15 01/05/25 History amlodipine 10 mg tablet 10 mg PO DAILY heart 12/04/18 01/05/25 History atorvastatin 40 mg tablet 40 mg PO QHS cholesterol 12/04/18 01/03/25 History famotidine 40 mg tablet 40 mg PO BID allergies 12/04/18 01/05/25 History levothyroxine 50 mcg tablet 50 mcg PO DAILY thyroid 12/04/18 01/03/25 History nitroglycerin 0.4 mg sublingual 0.4 mg sublingual Q5-15M PRN Chest 12/04/18 Unknown History tablet Pain trazodone 100 mg tablet 200 mg PO QHS for sleep 12/30/19 01/03/25 History clonazepam 1 mg tablet 1 mg PO BID PRN Insomnia 07/04/21 01/03/25 History aspirin 81 mg tablet,delayed 81 mg PO DAILY 07/11/22 01/03/25 History release (Adult Aspirin Regimen) tamsulosin 0.4 mg capsule (Flomax) 0.4 mg PO DAILY 01/05/25 01/03/25 History Allergy/AdvReac Type Severity Reaction Status Date / Time No Known Allergies Allergy Verified 07/21/24 12:21 Family History Father CHF (congestive heart failure) Mother Cancer stomach Surgical History History of coronary artery stent placement Presence of stent in coronary artery History of hemorrhoidectomy Benign neoplasm of large bowel Social History Smoking Status: Former smoker how long ago did patient quit smokin years ago alcohol intake: never substance use type: does not use caffeine: Yes Type: coffee Number of servings: 5 ROS ROS Narrative General: Denies fever/chills HENT: Denies headache, denies stuffy nose, denies sore throat EYES: Feels his vision is a little blurred because he is tired Resp: Denies cough, denies shortness of breath Cardiac: Denies chest pain GI: Denies abdominal pain, had a little bit of diarrhea earlier today, denies nausea/vomiting : Urinates frequently but denies this changing Extremity: Denies swelling MSK: Denies weakness Neuro: Denies any numbness/tingling, speaking back to normal, no longer confused Heme: Denies any bleeding or bruising Skin: Denies rashes Psychiatric: No complaints voiced Vital Signs Vital Signs Vital Signs: 01/05/25 16:16 01/05/25 16:21 01/05/25 16:22 Temperature 97.9 F 99.3 F H Temperature Source Temporal Oral Pulse Rate 90 90 75 Respiratory Rate 18 16 16 Blood Pressure 136/78 H 136/78 H 135/86 H Blood Pressure Mean 97 97 102 Pulse Ox 94 94 91 Oxygen Delivery Method Room Air Room Air Oxygen Flow Rate (L/min) 01/05/25 16:35 01/05/25 16:39 01/05/25 16:52 Temperature Temperature Source Pulse Rate 73 Respiratory Rate 16 Blood Pressure 129/82 H Blood Pressure Mean 97 Pulse Ox 95 97 95 Oxygen Delivery Method Room Air Nasal Cannula Nasal Cannula Oxygen Flow Rate (L/min) 2 2 01/05/25 17:22 01/05/25 17:30 01/05/25 17:58 Temperature 99.3 F H Temperature Source Pulse Rate 72 78 80 Respiratory Rate 17 15 18 Blood Pressure 135/88 H 141/93 H 138/79 H Blood Pressure Mean 103 109 98 Pulse Ox 95 97 95 Oxygen Delivery Method Room Air Room Air Oxygen Flow Rate (L/min) 01/05/25 18:00 Temperature Temperature Source Pulse Rate 83 Respiratory Rate 17 Blood Pressure 138/79 H Blood Pressure Mean 98 Pulse Ox 95 Oxygen Delivery Method Nasal Cannula Oxygen Flow Rate (L/min) 2 Weight Weight: 71 kg Body Mass Index (BMI) 22.4 Physical Exam Narrative General: Alert, oriented, no apparent distress HEENT: Atraumatic, normocephalic, poor dentition Eyes: Anicteric, normal conjunctiva, extraocular movements intact, pupils equal Neck: Supple Respiratory: Clear to auscultation bilaterally, normal respiratory effort Cardiovascular: Regular rate and rhythm GI: Soft, nontender, nondistended Extremities: No edema Musculoskeletal: Strength 5 out of 5 in right upper extremity, 5 out of 5 left upper extremity, 5 out of 5 right lower extremity, 5 out of 5 left lower extremity Neuro: No overt focal neurological deficits, cranial nerves II through XII intact, [id number] without significant difficulty bilaterally Skin: No rashes appreciated, some scattered bruises Psych: Cooperative Results Lab / Micro Data 01/05/25 16:30 01/05/25 16:30 Labs: Laboratory Results - last 24 hr 01/05/25 16:30: WBC 5.9, RBC 3.81 L, Hgb 11.8 L, Hct 36.2 L, MCV 95.0 H, MCH 31.0, MCHC 32.6, RDW Std Deviation 46.9 H, RDW Coeff of Jacky 13.4, Plt Count 137 L, MPV 10.0, Immature Gran % (Auto) 0.300, Neut % (Auto) 85.1 H, Lymph % (Auto) 7.3 L, [place] % (Auto) 5.8, Eos % (Auto) 1.2, Baso % (Auto) 0.3, Absolute Neuts (auto) 5.0, Absolute Lymphs (auto) 0.43 L, Nucleated RBC % 0, PT 14.9, INR 1.1, APTT 27.0, Sodium 137, Potassium 3.4, Chloride 103, Carbon Dioxide 22.5, Anion Gap 12, BUN 14, Creatinine 1.11, Estim Creat Clear Calc 55.08, Est GFR (MDRD) Non-Af 68, BUN/Creatinine Ratio 13.0, Glucose 112 H, Calcium 8.4, Troponin T High Sens 15 Imaging Radiology Impression Brain CT 01/05/25 16:22 IMPRESSION: No evidence of an acute intracranial abnormality. Consider MRI if there is persistent concern for acute ischemia. The critical information above was relayed directly by me by telephone to Jose Baldwin on 01/05/2025 at 4:34 pm with readback verification. Reading Location: [id number] Head/Neck CTA 01/05/25 16:24 IMPRESSION: 1. No new large vessel occlusion or hemodynamically significant narrowing. 2. 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 and hemodynamically significant narrowing of the left vertebral artery V4 segment -MRI ordered -NIH q4hr -asa, statin -Echo -PT/OT/Speech eval -Teleneuro consult ordered -Hold BP medications to allow for permissive hypertension for 24 hours unless SBP greater than 220 or DBP greater than 120 or until stroke is ruled out - Will check UA # History of coronary artery disease with stenting - Continue aspirin and statin #Chronic BPH with obstruction -Continue home medications #Hypothyroidism -Continue Synthroid #Hypertension - Holding home medications to allow for permissive hypertension #GERD -Continue famotidine #DVT ppx: SCDs Sulema Schultz MD Charges/Coding Visit Charges Inpatient E&M: 38341 Init Hosp L2
--- NOTE | 2025-01-05 18:13 | MRI_ITS ---
PROCEDURE: BRAIN WITHOUT CONTRAST 01/05/2025 REASON FOR EXAM: TIA/CVA R/O TECHNIQUE: MRI BRAIN WITHOUT CONTRAST Multiplanar and multisequence images were obtained. COMPARISON: Same-day CT and CTA head, MRI brain on 06/23/2022 FINDINGS: Brain: Mild cerebral atrophy and chronic periventricular white matter disease. No restricted diffusion. Ventricles: Consistent with the overall degree of cerebral atrophy. Major Intracranial Vessels: Right vertebral artery aneurysm and absent right internal carotid artery flow void, in keeping with same-day CTA findings. Sinuses: Clear. Mastoids: Clear. MRI/Brain without Contrast IMPRESSION: No acute intracranial abnormality. Reading Location: [id number]
--- NOTE | 2025-01-05 18:13 | ECHOD_ITS ---
Reason For Study Reason For Study: TIA/STROKE Procedure This was a 2D Doppler, Color Flow transthoracic echocardiogram. Exam performed portable in patient room. Left Ventricle Normal LV size. Mild concentric left ventricular hypertrophy. Left ventricular systolic function is normal. The left ventricular ejection fraction is 60 %. Stage 1 diastolic dysfunction. No regional wall motion abnormalities noted. Right Ventricle Normal RV size. Normal systolic function. Atria The left and right atria are normal. Mitral Valve Normal mitral valve. Tricuspid Valve Normal tricuspid valve. Aortic Valve Trisinus/trileaflet aortic valve. Pulmonic Valve Normal pulmonic valve. Great Vessels Normal aortic root. The pulmonary artery is normal size. Inferior vena cava collapse with respiration. Pericardium/Pleural No pericardial effusion. MMode/2D Measurements & Calculations LVIDd: 5.2 cm IVSd: 1.2 cm LVOT diam: 2.1 cm LVIDs: 3.4 cm LVPWd: 1.2 cm LVOT area: 3.6 cm2 RVDd: 3.2 cm FS: 33.8 % asc Aorta Diam: 4.1 cm LAV(MOD-sp2): 37.7 ml LVAd ap4: 21.4 cm2 LVLd ap4: 6.7 cm EDV(MOD-sp4): 56.6 ml EDV(sp4-el): 58.4 ml LVAs ap4: 12.6 cm2 LVLs ap4: 5.6 cm ESV(MOD-sp4): 23.6 ml ESV(sp4-el): 24.0 ml EF(MOD-sp4): 58.3 % EF(sp4-el): 58.9 % LVAd ap2: 18.8 cm2 SV(MOD-sp4): 33.0 ml SV(MOD-sp2): 29.4 ml LVLd ap2: 6.5 cm SI(MOD-sp4): 17.3 ml/m2 SI(MOD-sp2): 15.4 ml/m2 EDV(MOD-sp2): 45.5 ml EDV(sp2-el): 45.8 ml LVAs ap2: 9.9 cm2 LVLs ap2: 5.3 cm ESV(MOD-sp2): 16.2 ml ESV(sp2-el): 15.8 ml EF(MOD-sp2): 64.5 % SV(sp4-el): 34.4 ml Ao sinus diam: 3.7 cm LA dimension(2D): 3.5 cm TAPSE: 2.3 cm Time Measurements MV dec time: 0.22 sec Doppler Measurements & Calculations MV E max joseph: 50.6 cm/sec Lat Peak E' Joseph: 8.9 cm/sec Med Peak E' Joseph: 8.9 cm/sec MV A max joseph: 69.5 cm/sec E/E' lat: 5.7 E/E' med: 5.7 MV E/A: 0.73 Ao V2 max: 131.0 cm/sec LV V1 max: 104.2 cm/sec SV(LVOT): 67.6 ml Ao max P.9 mmHg LV V1 max P.3 mmHg Ao V2 mean: 88.2 cm/sec LV V1 mean P.9 mmHg Ao mean P.5 mmHg LV V1 mean: 59.6 cm/sec Ao V2 VTI: 23.6 cm LV V1 VTI: 18.6 cm AV (velocity ratio): 0.79 [facility](I,D): 2.9 cm2 JULIO(V,D): 2.9 cm2 PA V2 max: 85.9 cm/sec ECHO/Echo Complete Interpretation Summary Normal LV size. Mild concentric left ventricular hypertrophy. Left ventricular systolic function is normal. The left ventricular ejection fraction is 60 %. Stage 1 diastolic dysfunction. Ordering Physician: Sulema Schultz Referring Physician: Heike Payne M.D. Performed By: Roxy Mittal RDCS and Student
[2025-01-05] MEDS: Acetaminophen 325 MG Tablet 650 MG PO (20:48)
[2025-01-05] MEDS: Atorvastatin Calcium 40 MG Tablet PO (20:48)
[2025-01-05] MEDS: traZODone 100 MG Tablet PO (20:48)
[2025-01-05] MEDS: Famotidine 20 MG Tablet 40 MG PO (20:48)
[2025-01-05] MEDS: Aspirin 81 MG TAB.CHEW PO (20:48)
[2025-01-05 21:08] LABS: Troponin T High Sens 2 HR 14 ng/L (<=22)
[2025-01-05 22:56] LABS: Troponin T High Sens 4 HR 16 ng/L (<=22)
--- OUTSIDE RECORDS SUMMARY | 2025-01-05 23:12 | XMS RPT_ITS | CCD ---
Author Organization [facility] Care Team Providers Care Interface Designer Name Role Phone Yuval Dorantes MD Primary Care Provider Bradley, Gatito S Unavailable Dr. Yuval Dorantes Primary Care Provider Dr. Dimas Miller Emergency Provider [place], Dr. Lisha Pinait Provider Dr. Lisha Elkins [facility] Dr. Jessie Cruz Attending Provider Yuval Dorantes MD Primary Care Provider Bradley, Gatito S Unavailable Dr. Yuval Dorantes Primary Care Provider Dr. Dimas Miller Emergency Provider Severo, Dr. Lisha Pinait Provider Dr. Lisha Elkins Attending Provider [facility] Husain Other Provider Dr. Jessie Cruz Attending Provider Dr. Gregory Orellana Attending Provider Dr. Gregory Orellana Other Provider Dr. Yuval Dorantes Primary Care Provider Dr. Yuval Dorantes Referring Provider Leland FERGUSON, PA Shilpi Asher Attending Provider Bradley VELAZQUEZ, Gatito Douglas Unavailable Yuval Dorantes MD Primary Care Provider Alvarez 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.LINTER OPERATOR, Valerie Unavailable Judi 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.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, Minoo Unavailable Judi 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.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, Minoo Unavailable AN HENLEY JR Attending Unavaila ble PORSHA MEADOWS Referring Unavailable TALAMPAS, YUVAL D Primary Care Unavailable AN HENLEY JR Attending Unavaila ble TALAMPAS, YUVAL D Referring Unavailable TALAMPAS, YUVAL D Primary Care Unavailable Andrea Wu MD Unavailable AN HENLEY JR Referring Unavaila ble TALAMPAS, YUVAL D Primary Care Unavailable AN HENLEY JR Referring Unavaila ble TALAMPAS, YUVAL D Primary Care Unavailable Elmer VELAZQUEZ, Dr. Yuval Diana Primary Care Provider Dr. Harley Quintana DO Attending Provider Dr. Harley Quintana DO Referring Provider Dr. Harley Quintana DO Emergency Provider Samson VELAZQUEZ, Dr. Jarod Bob Attending Provider Dr. Jarod Davies MD Referring Provider Judi 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.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, Minoo Unavailable Talampas, Yuval D Primary Care Unavailable Talampas, Yuval D Referring Unavailable An Araiza Attending Unavailable Talampas, Yuval D Primary Care Unavailable Shashank Wright Admitting Unavailable Shashank Wright Consulting Unavailable Shashank Wright Attending Unavailable Shane Pineda Attending Unavailable Shane Pineda Consulting Unavailable Talampas, Yuval D Primary Care Unavailable Jarod Davies Attending Unavailable Jarod Davies Referring Unavailable Harley Quintana Referring Unavailable Talampas, Yuval D Primary Care Unavailable Harley Quintana Attending Unavailable Shane Pineda Attending Unavailable Talampas, Yuval D Primary Care Unavailable Shashank Wright Admitting Unavailable Shashank Wright Consulting Unavailable Alvarez 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.LINTER OPERATOR, Valerie Unavailable [phone] ANDREA WU Attending Unavailable TALAMPAS, YUVAL D Primary Care Unavailable PORSHA MEADOWS Attending Unavailable TALAMPAS, YUVAL D Primary Care Unavailable TALAMPAS, YUVAL D Primary Care Unavailable CARLA ULRICH Referring Unavailable TALAMPAS, YUVAL D Attending Unavailable TALAMPAS, YUVAL D Primary Care Unavailable SELF Referring Unavailable ANDREA WU Referring Unavailable TALAMPAS, YUVAL D Primary Care Unavailable ANDREA WU Attending Unavailable TALAMPAS, YUVAL D Primary Care Unavailable TALAMPAS, YUVAL D Primary Care Unavailable TALAMPAS, YUVAL D Primary Care Unavailable TALAMPAS, YUVAL D Primary Care Unavailable TALAMPAS, YUVAL D Primary Care Unavailable CARLA ULRICH Attending Unavailable PORSHA MEADOWS Referring Unavailable TALAMPAS, YUVAL D Primary Care Unavailable PORSHA MEADOWS Attending Unavailable TALAMPAS, YUVAL D Primary Care Unavailable TALAMPAS, YUVAL D Primary Care Unavailable ANDREA WU Attending Unavailable TALAMPAS, YUVAL D Primary Care Unavailable TALAMPAS, YUVAL D Primary Care Unavailable TALAMPAS, YUVAL D Primary Care Unavailable TALAMPAS, YUVAL D Primary Care Unavailable TALAMPAS, YUVAL D Primary Care Unavailable TALAMPAS, YUVAL D Primary Care Unavailable TALAMPAS, YUVAL D Primary Care Unavailable ANDREA WU Attending Unavailable TALAMPAS, YUVAL D Primary Care Unavailable TALAMPAS, YUVAL D Primary Care Unavailable TALAMPAS, YUVAL D Primary Care Unavailable MINOO CASANOVA Attending Unavailable SELF Referring Unavailable MAE PATEL Attending Unavailable TALAMPAS, YUVAL D Primary Care Unavailable TALAMPAS, YUVAL D Attending Unavailable TALAMPAS, YUVAL D Primary Care Unavailable TALAMPAS, YUVAL D Primary Care Unavailable MEADOWSPORSHA BRUNO Referring Unavailable TALAMPAS, YUVAL D Primary Care Unavailable TALAMPAS, YUVAL D Primary Care Unavailable TALAMPAS, YUVAL D Primary Care Unavailable TALAMPAS, YUVAL D Primary Care Unavailable TALAMPAS, UYVAL D Primary Care Unavailable TALAMPAS, YUVAL D Attending Unavailable TALAMPAS, YUVAL D Primary Care Unavailable TALAMPAS, YUVAL D Referring Unavailable TALAMPAS, YUVAL D Primary Care Unavailable TALAMPAS, YUVAL D Primary Care Unavailable TALAMPAS, YUVAL D Primary Care Unavailable TALAMPAS, YUVAL D Primary Care Unavailable ANDREA WU Attending Unavailable TALAMPAS, YUVAL D Primary Care Unavailable TALAMPAS, YUVAL D Referring Unavailable TALAMPAS, YUVAL D Primary Care Unavailable TALAMPAS, YUVAL D Primary Care Unavailable TALAMPAS, YUVAL D Primary Care Unavailable TALAMPAS, YUVAL D Primary Care Unavailable TALAMPAS, YUVAL D Primary Care Unavailable ANDREA WU Attending Unavailable TALAMPAS, YUVAL D Primary Care Unavailable TALAMPAS, YUVAL D Primary Care Unavailable TALAMPAS, YUVAL D Referring Unavailable TALAMPAS, YUVAL D Primary Care Unavailable TALAMPAS, YUVAL D Primary Care Unavailable TALAMPAS, YUVAL D Attending Unavailable TALAMPAS, YUVAL D Primary Care Unavailable TALAMPAS, YUVAL D Primary Care Unavailable ANDREA WU Attending Unavailable TALAMPAS, YUVAL D Primary Care Unavailable TALAMPAS, YUVAL D Primary Care Unavailable ANDREA WU Attending Unavailable TALAMPAS, YUVAL D Primary Care Unavailable TALAMPAS, YUVAL D Primary Care Unavailable LISANDRO DADANIEL Referring Unavailable LISANDRO DADANIEL Attending Unavailable TALAMPAS, YUVAL D Primary Care Unavailable TALAMPAS, YUVAL D Primary Care Unavailable Talampas , Dr. Yuval Diana Primary Care Provider Jose Baldwin MD Referring Provider Jose Baldwin MD Emergency Provider [phone] Sulema Schultz MD Admit Provider Antoine VELAZQUEZ, Dr. Leone Attending Provider Allergies Allergy Classification Reported Allergen(s) Allergy Type Date of Onset Reaction(s) Facility (20 sources) Omeprazole; Translations: [OMEPRAZOLE MAGNESIUM] Drug Allergy 09-27-2010 Other: See Comments [facility] Work Phone: Medications Current Medications Medication Drug Class(es) Dates Sig (Normalized) Sig (Original) [id number] 200 actuat albuterol 0.09 mg/actuat metered dose inhaler (20 sources) beta2-Adrenergic Agonist Start: 01-24-2024 take 2 puff(s) by inhalation every four hours as needed albuterol HFA (PROVENTIL HFA, VENTOLIN HFA) 90 mcg/actuation inhaler Inhale 2 Puffs as instructed every 4 hours as needed. 01/24/2024 Active Start: 01-24-2024 End: 01-05-2025 Albuterol Sulfate 90 mcg/act uation HFA aerosol inhaler Discontinued 2 NMA INHALATION EVERY 6 HOURS as needed for shortness of breath or wheezing 8.5 January 24, 2024 12:00am January 05, 2025 4:56pm amLODIPine 10 mg oral tablet (20 sources) Dihydropyridine Calcium Channel Rufus Start: 05-24-2016 take 1 tablet by mouth once daily amLODIPine (NORVASC) 10 mg tablet Indications: Hypertension goal BP (blood pressure) Take 1 tablet by mouth once daily. 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 Cruz) 05/24/2016 Active Start: 10-14-2015 End: 12-04-2018 take 1 tablet by mouth once daily Amlodipine 5 MG tablet Discontinued 5 mg PO DAILY October 14, 2015 12:00am December 04, 2018 11:13am Comment on above: Take 1 tablet by pepe th once daily. 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 Cruz) aspirin 81 mg delayed release oral tablet (20 sources) Platelet Aggregation Inhibitor, Nonsteroidal Anti-inflammatory Drug Start: 07-11-2022 take 1 tablet by mouth once daily Aspirin (Adult Aspirin Regimen) 81 mg tablet,delayed release (DR/EC) Active 81 mg PO DAILY July 11, 2022 1:00am Start: 09-21-2020 take 1 tablet by pepe th once daily Aspirin 81 mg ORAL Tab Take 81 mg by mouth once daily. 30 tablet 11 09/21/2020 Active Start: 09-21-2020 take 2 tablets by mo uth once daily Aspirin 81 mg ORAL Tab Take 162 mg by mouth once daily. Pt reported taking x2 daily current 30 tablet 11 09/21/2020 Active Start: 12-04-2018 End: 07-11-2022 take 1 tablet by mouth twice daily Aspirin 81 mg tablet,chewable Discontinued 81 mg PO TWICE A DAY December 04, 2018 11:16am July 11, 2022 10:41am Start: 10-15-2015 End: 12-04-2018 take 1 tablet by mouth once daily Aspirin 81 MG tablet Discontinued 81 mg PO DAILY@0800 October 15, 2015 12:00am December 04, 2018 11:16am Start: 10-14-2015 End: 12-04-2018 take 1 tablet by mouth once daily Aspirin 81 MG tablet,chewable Discontinued 81 mg PO DAILY@0800 October 14, 2015 12:00am December 04, 2018 11:19am Comment on above: Take 162 mg by mouth once daily. Pt reported taking x2 daily current Take 81 mg by mouth once daily. atorvastatin 40 mg oral tablet (20 sources) HMG-CoA Reductase Inhibitor Start: 018 take 1 tablet by mouth once daily for hyperlipidemia atorvastatin (LIPITOR) 40 mg tablet Indications: Mixed hyperlipidemia Take 1 tablet by mouth once daily. For cholesterol. (From [facility]) 06/04/2018 Active Start: 10-15-2015 End: 12-04-2018 take 1 tablet by mouth at bedtime Atorvastatin 20 MG tablet Discontinued 20 mg PO AT BEDTIME October 15, 2015 12:00am December 04, 2018 11:09am Comment on above: Take 1 tablet by pepe once daily. For cholesterol. (From [facility]) clonazePAM 1 mg oral tablet (20 sources) Benzodiazepine Start: 025 End: 025 take 1 tablet by mouth once daily at bedtime clonazePAM (KLONOPIN) 1 mg tablet Indications: Psychophysiological insomnia , Anxiety Take 1 tablet by mouth daily at bedtime. May also take 1 tablet once daily as needed. Do all this for 90 days. Patient should start on November 06, 2024. 60 tablet 2 11/06/2024 02/04/2025 Active Start: 07-18-2024 End: 10-22-2024 clonazePAM (KLONOPIN) 1 mg t ablet Indications: Psychophysiological insomnia , Anxiety Take 1 tablet by mouth daily at bedtime. May also take 1 tablet once daily as needed. Do all this for 90 days. Patient should start on July 18, 2024. 60 tablet 2 07/18/2024 10/22/2024 Discontinued Start: 08-07-2023 End: 06-18-2024 clonazePAM (KLONOPIN) 1 mg t ablet Indications: Psychophysiological insomnia , Anxiety Take 1 tablet by mouth daily at bedtime. May also take 1 tablet once daily as needed. Do all this for 90 days. Do not start before February 19, 2024. 60 tablet 2 02/19/2024 06/18/2024 Discontinued Start: 02-02-2023 take 1 tablet by pepe th once daily at bedtime as needed, then take 1 tablet by mouth once daily as needed clonazePAM (KLONOPIN) 1 mg tablet Indications: Psychophysiological insomnia , Anxiety Take 1 tablet by mouth daily at bedtime. May also take 1 tablet once daily as needed. Do all this for 90 days. 60 tablet 2 02/02/2023 Active Start: 10-06-2022 End: 10-10-2022 take 1 tablet by mouth once daily at bedtime as needed, then take 1 tablet by mouth once daily as needed clonazePAM (KLONOPIN) 1 mg tablet Indications: Psychophysiological insomnia , Anxiety Take 1 tablet by mouth daily at bedtime. May also take 1 tablet once daily as needed. Do all this for 120 days. 60 tablet 1 10/06/2022 10/06/2022 Discontinued Start: 03-23-2021 End: 09-23-2021 take 8 tablets by mouth twice daily clonazePAM (KLONOPIN) 1 mg tablet Indications: Psychophysiological insomnia , Anxiety Take 0.5-1 tablets by mouth twice daily for 180 days. Do not start before March 23, 2021. 60 tablet 5 03/23/2021 09/23/2021 Discontinued Start: 12-30-2019 End: 10-06-2022 take 1 tablet by mouth twice daily as needed Clonazepam 1 mg tablet Active 1 mg PO TWICE A DAY as needed for Insomnia July 04, 2021 4:23pm Start: 10-14-2015 End: 12-30-2019 take 2 tablets by mouth at bedtime as needed Clonazepam 1 MG tablet Discontinued 2 mg PO AT BEDTIME NEEDED as needed for Insomnia 0 October 15, 2015 12:00am December 30, 2019 11:43am Start: 10-14-2015 End: 12-30-2019 take 2 mg by mouth at bedtime as needed Clonazepam Discontinued 2 MG PO AT BEDTIME NEEDED 0 October 14, 2015 11:00pm December 30, 2019 10:43am Comment on above: Take 0.5-1 tablets b y mouth twice daily for 60 days. Take 0.5-1 tablets b y mouth twice daily for 180 days. Do not start before March 23, 2021. Take 1 tablet by pepe th daily at bedtime. May also take 1 tablet once daily as needed. Do all this for 120 days. Take 1 tablet by pepe th daily at bedtime. May also take 1 tablet once daily as needed. Do all this for 90 days. docusate sodium 100 mg oral capsule (20 sources) Start: 0 take 1 capsule by mouth twice daily as needed for constipation docusate sodium (COLACE) 100 mg capsule Indications: Fall, initial encounter Take 1 capsule by mouth twice daily as needed for Constipation. 30 capsule 11/11/2019 Active Comment on above: Take 1 capsule by mo [facility] twice daily as needed for Constipation. famotidine 40 mg oral tablet (20 sources) Histamine-2 Receptor Antagonist Start: 8 take 1 tablet by mouth twice daily famotidine (PEPCID) 40 mg tablet Take 1 tablet by mouth twice daily. 180 tablet 3 09/19/2017 Active Start: 10-14-2015 End: 12-04-2018 take 1 tablet by mouth once daily Famotidine 40 MG tablet Discontinued 40 mg PO DAILY October 14, 2015 12:00am December 04, 2018 11:19am Comment on above: Take 1 tablet by pepe twice daily. fluticasone propionate 0.05 mg/actuat metered dose nasal spray (20 sources) Corticosteroid Start: 1 take 2 spray(s) nasal route once daily as needed fluticasone (FLONASE) 50 mcg/actuation nasal spray Indications: Allergic sinusitis Use 2 Sprays in each nostril once daily as needed. Rinse mouth after use. 1 Bottle 11 11/10/2020 Active Start: 12-04-2018 End: 01-05-2025 Fluticasone Propionate (Flon ase Allergy Relief) 50 mcg/actuation spray,suspension Discontinued 2 NMA INTRANASAL DAILY as needed for seasonal allergies December 30, 2019 11:39am January 05, 2025 4:57pm Start: 12-04-2018 End: 12-30-2019 Fluticasone Propionate (Flon ase Allergy Relief) 50 mcg/actuation spray,suspension Active 2 SPRAY INTRANASAL DAILY December 30, 2019 10:39am Comment on above: Use 2 Sprays in each nostril once daily as needed. Rinse mouth after use. ipratropium bromide 0.042 mg/actuat metered dose nasal spray (20 sources) Anticholinergic Start: 08-09-2021 ipratropium bromide (ATROVENT) 42 mcg (0.06 %) nasal spray Use 2 Sprays in the nose four times daily as needed. 15 mL 5 08/09/2021 Active Comment on above: Use 2 Sprays in the nose four times daily as needed. levothyroxine sodium 0.05 mg oral tablet (20 sources) l-Thyroxine Start: 12-04-2018 End: 06-18-2024 levothyroxine (SYNTHROID) 50 mcg tablet Indications: Acquired hypothyroidism Take 1 tablet by mouth once daily. Except take 2 on Sunday ([facility]) 06/18/2024 Active Start: 10-14-2015 End: 12-04-2018 take 2 tablets by mouth once daily Levothyroxine 25 MCG tablet Discontinued 50 ug PO DAILY October 14, 2015 12:00am December 04, 2018 11:11am Start: 10-14-2015 End: 12-04-2018 take 50 ug by mouth once daily Levothyroxine Discontin ued 50 MCG PO DAILY October 13, 2015 11:00pm December 04, 2018 10:11am Comment on above: Currently taking 1 p ill daily except 1 day a week takes 2 pills (Sunday) ([facility]; dose decreased to one pill daily by [facility]) losartan potassium 100 mg oral tablet (20 sources) Angiotensin 2 Receptor Rufus Start: 08-02-19 13 take 1 tablet by mouth once daily losartan (COZAAR) 100 mg tablet Take 1 tablet by mouth once daily. 0 08/02/2012 Active Comment on above: Take 1 tablet by [facility] once daily. nitroglycerin 0.4 mg sublingual tablet (20 sources) Nitrate Vasodilator Start: 07-12-20 20 nitroglycerin sublingual (NITROQUICK) 0.4 mg SL tablet Dissolve 1 tablet under the tongue as needed. FOR CHEST PAIN. IF NO RELIEF CALL 911 25 tablet 2 07/12/2020 Active Start: 12-04-2018 Nitroglycerin 0.4 mg tablet, sublingual Active 0.4 mg SL every 5 to 15 minutes as needed for Chest Pain December 04, 2018 12:00am Start: 12-04-2018 Nitroglycerin Active 0.4 MG SL every 5 to 15 minutes December 03, 2018 11:00pm Comment on above: Dissolve 1 tablet un tawanda the tongue as needed. FOR CHEST PAIN. IF NO RELIEF CALL 911 10 actuat olodaterol 0.0025 mg/actuat / tiotropium 0.0025 mg/actuat inhalation spray (20 sources) Anticholinergic, beta2-Adrenergic Agonist Start: 04-16-2024 tiotropium-olodaterol (STIOLTO RESPIMAT) 2.5-2.5 mcg/actuation inhaler Inhale 2 Puffs as instructed once daily. 4 g 5 04/16/2024 Active Start: 04-14-2024 End: 04-16-2024 tiotropium-olodaterol (STIOL TO RESPIMAT) 2.5-2.5 mcg/actuation inhaler Inhale 2 Puffs as instructed once daily. 1 Each 5 04/14/2024 04/16/2024 Discontinued psyllium 6000 mg powder for oral suspension (20 sources) Start: 07-12-2020 psyllium husk (KONSYL SUGAR-FREE) 6 gram/6 gram powd Take 1 Scoop by mouth once daily as needed. 07/12/2020 Active Start: 12-04-2018 End: 01-01-2019 Psyllium Husk (Konsyl Sugar- Free) 6 gram/6 gram powder Discontinued 1 tbsp PO DAILY December 04, 2018 12:00am January 01, 2019 1:28pm Start: 12-04-2018 End: 01-01-2019 Psyllium Husk (Konsyl Sugar- Free) 6 gram/6 gram powder Discontinued 1 tbsp PO DAILY December 03, 2018 11:00pm January 01, 2019 12:28pm Comment on above: Take 1 Scoop by mout h once daily as needed. tamsulosin hydrochloride 0.4 mg oral capsule (7 sources) alpha-Adrenergic Rufus Start: 025 End: 025 take 1 capsule by mouth once daily tamsulosin (FLOMAX) 0.4 mg Take 1 capsule by mouth once daily. 30 capsule 2 11/14/2024 02/12/2025 Active traZODone hydrochloride 100 mg oral tablet (20 sources) Serotonin Reuptake Inhibitor Start: 020 take 1-2 tablets by mouth once daily at bedtime traZODone (DESYREL) 100 mg tablet Indications: Psychophysiological insomnia Take 1-2 tablets by mouth daily at bedtime. ([facility]) 07/12/2020 Active Start: 12-30-2019 take 2 tablets by mo uth at bedtime Trazodone 100 mg tablet Active 200 mg PO AT BEDTIME December 30, 2019 12:00am Start: 12-30-2019 take 200 mg by mouth at bedtim e Trazodone Active 200 MG PO AT BEDTIME December 29, 2019 11:00pm Start: 01-01-2019 End: 12-30-2019 take 2 tablets by mouth at bedtime Trazodone 50 mg tablet Discontinued 100 mg PO AT BEDTIME January 01, 2019 1:28pm December 30, 2019 11:42am Start: 01-01-2019 End: 12-30-2019 take 100 mg by mouth at bedtime Trazodone Discontinued 100 MG PO AT BEDTIME January 01, 2019 12:28pm December 30, 2019 10:42am Start: 10-14-2015 End: 01-01-2019 take 4 tablets by mouth at bedtime Trazodone 50 MG tablet Discontinued 200 mg PO AT BEDTIME October 14, 2015 12:00am January 01, 2019 1:30pm Start: 10-14-2015 End: 01-01-2019 take 200 mg by mouth at bedtime Trazodone Discontinued 200 MG PO AT BEDTIME October 13, 2015 11:00pm January 01, 2019 12:30pm Comment on above: Take 1-2 tablets by mouth daily at bedtime. ([facility]) Completed/Discontinued Medications Medication Drug Class(es) Dates Sig (Normalized) Sig (Original) acetaminophen 325 mg oral tablet (8 sources) Start: 10-15-2015 End: 12-04-2018 Acetaminophen 325 MG tablet Discontinued 650 mg PO EVERY 6 HOURS NEEDED as needed for Mild Pain (scale 0-3)/T>100.7 0 October 15, 2015 12:00am December 04, 2018 11:19am Start: 10-15-2015 End: 12-04-2018 take 650 mg by mouth every six hours as needed Acetaminophen Discontinued 650 MG PO EVERY 6 HOURS NEEDED 0 October 14, 2015 11:00pm December 04, 2018 10:19am azithromycin 500 mg oral tablet (20 sources) Macrolide Antimicrobial Start: 01-24-2024 End: 01-05-2025 take 1 tablet by mouth once daily Azithromycin (Zithromax) 500 mg tablet Discontinued 500 mg PO DAILY 3 January 24, 2024 12:00am January 05, 2025 4:56pm clopidogrel 75 mg oral tablet (11 sources) P2Y12 Platelet Inhibitor Start: 06-24-2022 End: 12-26-2022 take 1 tablet by mouth once daily Clopidogrel (Plavix) 75 mg tablet Discontinued 75 mg PO DAILY June 24, 2022 1:00am December 26, 2022 11:20am Comment on above: Take 1 tablet by pepe th once daily. diazePAM 2 mg oral tablet (8 sources) Benzodiazepine Start: 10-15-2015 End: 01-01-2019 take 2-4 mg by mouth every four hours as needed Diazepam 2 MG tablet Discontinued 2 - 4 mg PO EVERY 4 HOURS NEEDED as needed for VERTIGO 100 October 15, 2015 12:00am January 01, 2019 1:29pm 2 ml gentamicin 40 mg/ml injection (2 sources) Start: 09-15-2024 End: 09-15-2024 gentamicin 40 mg/mL 160 mg injection Start: 09-15-2024 End: 09-15-2024 inject 1 dose by intramuscular injection once 160 mg, INTRAMUSCULAR, ONCE, 1 dose, On Sun09/15/24 at 1430, Antimicrobial indication: Prophylaxis ibuprofen 800 mg oral tablet (14 sources) Nonsteroidal Anti-inflammatory Drug Start: 04-03-2022 End: 07-04-2022 take 1 tablet by mouth every eight hours as needed ibuprofen (MOTRIN) 800 mg tablet Take 1 tablet by mouth every 8 hours as needed for pain (with food). Take with food. 30 tablet 0 04/03/2022 07/04/2022 Discontinued Start: 12-04-2018 End: 01-01-2019 take 1 tablet by mouth three times daily as needed Ibuprofen 800 mg tablet Discontinued 800 mg PO THREE TIMES A DAY as needed December 04, 2018 12:00am January 01, 2019 1:29pm Comment on above: Take 1 tablet by pepe th every 8 hours as needed for pain (with food). Take with food. levoFLOXacin 500 mg oral tablet (3 sources) Quinolone Antimicrobial Start: 09-15-2024 End: 09-15-2024 levoFLOXacin 500 mg tab(s) (LEVAQUIN) Start: 09-15-2024 End: 09-15-2024 take 1 dose by mouth once at mealtime 500 mg, ORAL, ONCE, 1 dose, On Sun09/15/24 at 1430, Administer 2 hours before or 2 hours after medications containing calcium, magnesium, aluminum, iron, or zinc (including antacids and sucralfate), and sevelamer. May be administered without regard to meals. Tube feedings should be held 1 hour before and 1 hour after administration., Antimicrobial indication: Prophylaxis Start: 01-03-2024 End: 01-03-2024 take 1 tablet by mouth once, then take 1 tablet by mouth once daily levoFLOXacin (LEVAQUIN) 750 mg tablet Indications: Elevated prostate specific antigen (PSA) , Benign prostatic hyperplasia with urinary retention Take 1 tablet by mouth one time only for 1 dose. Take 1 day before procedure, 1 day of and 1 day after Procedure 3 tablet 0 01/03/2024 01/03/2024 Active Lidocaine (2 sources) Antiarrhythmic, Amide Local Anesthetic Start: 09-15-2024 End: 09-15-2024 lidocaine 20 mg/mL (2 %) 200 mg injection (XYLOCAINE) Start: 09-15-2024 End: 09-15-2024 inject 1 dose by intramuscular injection once 200 mg (10 mL), INTRAMUSCULAR, ONCE, 1 dose, On Sun09/15/24 at 1430 meloxicam 15 mg oral tablet (6 sources) Nonsteroidal Anti-inflammatory Drug Start: 02-22-2021 End: 05-31-2021 take 1 tablet by mouth once daily for pain meloxicam (MOBIC) 15 mg tablet Indications: Chronic bilateral low back pain with bilateral sciatica Take 1 tablet by mouth once daily. for pain. Take with food. 90 tablet 3 05/31/2021 Active Comment on above: Take 1 tablet by pepe once daily. for pain. Take with food. methocarbamol 500 mg oral tablet (2 sources) Muscle Relaxant Start: 07-25-2021 End: 08-09-2021 take 1 tablet by mouth four times daily as needed for pain methocarbamol (ROBAXIN) 500 mg tablet Indications: Chronic bilateral low back pain with bilateral sciatica Take 1 tablet by mouth four times daily. as needed for pain, may make drowsy 120 tablet 1 07/25/2021 08/09/2021 Discontinued (Lack of Efficacy) Start: 02-22-2021 End: 02-22-2021 take 1 tablet by mouth four times daily as needed for pain methocarbamol (ROBAXIN) 500 mg tablet Indications: Chronic bilateral low back pain with bilateral sciatica Take 1 tablet by mouth four times daily. as needed for pain, may make drowsy 30 tablet 1 02/22/2021 02/22/2021 Discontinued Comment on above: Take 1 tablet by pepe th four times daily. as needed for pain, may make drowsy ondansetron 4 mg disintegrating oral tablet (5 sources) Serotonin-3 Receptor Antagonist Start: 10-17-2021 End: 10-17-2021 ondansetron orally disintegrating 8 mg tab(s) (ZOFRAN ODT) Start: 10-17-2021 take 1 tablet by pepe th every six hours as needed ondansetron orally disintegrating (ZOFRAN ODT) 4 mg disintegrating tablet Take 1 tablet by mouth every 6 hours as needed for nausea/vomiting. 15 tablet 0 10/17/2021 Active Comment on above: Take 1 tablet by pepe th every 6 hours as needed for nausea/vomiting. polyethylene glycol 3350 [id number] mg powder for oral solution (8 sources) Osmotic Laxative Start: End: take 17 g by mouth once daily Polyethylene Glycol 3350 17 gram/dose powder Discontinued 17 g PO DAILY December 04, 2018 12:00am January 01, 2019 1:28pm predniSONE 20 mg oral tablet (3 sources) Start: End: take 1 tablet by mouth twice daily Prednisone 20 mg tablet Discontinued 20 mg PO TWICE A DAY January 24, 2024 12:00am January 05, 2025 4:57pm take for seven days starting 01/25/24 10 actuat tiotropium 0.0025 mg/actuat inhalation spray (3 sources) Anticholinergic Start: End: take 2 puff(s) by inhalation once daily tiotropium bromide (SPIRIVA RESPIMAT) 2.5 mcg/actuation inhaler Indications: Centrilobular emphysema (HCC) Inhale 2 Puffs as instructed once daily. 3 Each 3 03/19/2024 04/16/2024 Discontinued (Course of therapy completed) Start: 03-14-2024 take 2 puff(s) by in halation once daily tiotropium bromide (SPIRIVA RESPIMAT) 2.5 mcg/actuation inhaler Inhale 2 Puffs as instructed once daily. 1 Each 5 03/14/2024 Active Problems Active Problems Problem Classification Problem Date Documented Da te Episodic/Chronic Adjustment disorders (20 sources) Adjustment disorder with depressed mood; Translations: [Adjustment disorder with depressed mood] Onset: 12-13-2007 12-02-2020 Chronic Anxiety disorders (20 sources) Anxiety; Translations: [Anxiety disorder, unspecified] Onset: 06-22-2019 06-22-2019 Chronic Aortic; peripheral; and visceral artery aneurysms (9 sources) Thoracic aortic aneurysm without rupture; Translations: [Thoracic aortic aneurysm, without rupture] Onset: 09-14-2015 06-28-2021 Chronic Comment on above: Acing aorta measured 4.18 cm on CTA 2022. Cancer of prostate (20 sources) Malignant tumor of prostate; Translations: [Malignant neoplasm of prostate] Onset: 10-01-2024 10-01-2024 Chronic Chronic obstructive pulmonary disease and bronchiectasis (20 sources) Centriacinar emphysema; Translations: [Centrilobular emphysema] Onset: 09-25-2022 09-25-2022 Chronic Coronary atherosclerosis and other heart disease (20 sources) Coronary atherosclerosis; Translations: [Atherosclerotic heart disease of [place] coronary artery without angina pectoris] Onset: 08-30-2010 08-30-2010 Chronic Coronary atherosclerosis and other heart disease (9 sources) Stented coronary artery; Translations: [Presence of coronary angioplasty implant and graft] 12-10-2018 Episodic Comment on above: 2.5 x 12 mm and 2.5 x 14 mm [place] IVON to proximal RCA 08/23/2010 Developmental disorders (2 sources) Stuttering; 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] 01-05-2025 Chronic Diabetes mellitus without complication (1 source) Hyperglycemia; Translations: [Hyperglycemia, unspecified] Episodic Disorders of lipid metabolism (20 sources) Mixed hyperlipidemia; Translations: [Mixed hyperlipidemia] Onset: 07-13-2006 08-14-2006 Chronic Essential hypertension (20 sources) Hypertensive disorder; Translations: [Essential (primary) hypertension] Onset: 08-30-2010 07-11-2021 Chronic Fever of unknown origin (1 source) Fever; Translations: [Fever, unspecified] Episodic Genitourinary symptoms and ill-defined conditions (6 sources) Dysuria; Translations: [Dysuria] Onset: 06-18-2024 10-01-2024 Episodic Hepatitis (20 sources) Chronic hepatitis C; Translations: [Chronic viral hepatitis C] Onset: 05-08-2005 Resolved: 02-16-2016 02-16-2016 Chronic Hepatitis (8 sources) Viral hepatitis C; Translations: [Unspecified viral hepatitis C without hepatic coma] 10-14-2015 Episodic Comment on above: Pt sts that he was t reated for Hep C at [facility] Hyperplasia of prostate (7 sources) Benign prostatic hypertrophy with outflow obstruction; Translations: [Benign prostatic hyperplasia with lower urinary tract symptoms] Onset: 06-18-2024 Chronic Immunizations and screening for infectious disease (1 source) Vaccination needed; Translations: [Encounter for immunization] 06-18-2024 Episodic Intestinal infection (1 source) Viral gastroenteritis; Translations: [Viral intestinal infection, unspecified] 07-30-2024 Episodic Miscellaneous mental health disorders (20 sources) Psychosexual dysfunction; Translations: [Unspecified sexual dysfunction not due to a substance or known physiological condition] Onset: 05-08-2005 01-22-2008 Chronic Mood disorders (20 sources) Depressive disorder; Translations: [Depression] 09-19-2017 Chronic Nausea and vomiting (1 source) Nausea, vomiting and diarrhea; Translations: [Nausea with vomiting, unspecified] Episodic Occlusion or stenosis of precerebral arteries (20 sources) Carotid artery occlusion; Translations: [Occlusion and stenosis of unspecified carotid artery] Onset: 10-01-2024 07-11-2021 Chronic Other aftercare (1 source) Radiotherapy follow-up; Translations: [Encounter for follow-up examination after completed treatment for conditions other than malignant neoplasm] 01-05-2025 Episodic Other bone disease and musculoskeletal deformities (20 sources) Disorder of skeletal system; Translations: [Disorder of bone, unspecified] 02-10-2018 Episodic Other circulatory disease (20 sources) History of aneurysm; Translations: [Personal history of other diseases of the circulatory system] 07-11-2021 Episodic Other circulatory disease (4 sources) Air trapping; Translations: [Other specified symptoms and signs involving the circulatory and respiratory systems] 03-04-2024 Episodic Other connective tissue disease (1 source) Pain in right lower limb; Translations: [Pain in right leg] Episodic Other diseases of kidney and ureters (1 source) Cyst of kidney; Translations: [Cyst of kidney, acquired] Episodic Other gastrointestinal disorders (1 source) Constipation; Translations: [Constipation, unspecified] 03-09-2024 Episodic Other gastrointestinal disorders (2 sources) Diarrhea; Translations: [Diarrhea, unspecified] 07-29-2024 Episodic Other lower respiratory disease (2 sources) Dyspnea; Translations: [Shortness of breath] Episodic Other lower respiratory disease (1 source) Nodule of lung; Translations: [Solitary pulmonary nodule] 10-15-2023 Episodic Other lower respiratory disease (6 sources) Multiple nodules of lung; Translations: [Other nonspecific abnormal finding of lung field] 10-15-2023 Episodic Other lower respiratory disease (4 sources) Dyspnea on exertion; Translations: [Other forms of dyspnea] 03-04-2024 Episodic Other nervous system disorders (20 sources) Chronic pain; Translations: [Other chronic pain] Onset: 11-03-2008 11-03-2008 Chronic Other nervous system disorders (2 sources) Expressive dysphasia; Translations: [Aphasia] 01-05-2025 Chronic Other nervous system disorders (1 source) Sensory nervous system finding; Translations: [Unspecified disturbances of smell and taste] Episodic Other nervous system disorders (1 source) Impairment of balance; Translations: [Other abnormalities of gait and mobility] Episodic Peripheral and visceral atherosclerosis (8 sources) Intermittent claudication; Translations: [Peripheral vascular disease, unspecified] 12-28-2020 Chronic Pleurisy; pneumothorax; pulmonary collapse (1 source) Pleural plaque; Translations: [Pleural plaque without asbestos] 08-11-2024 Episodic Residual codes; unclassified (1 source) At risk of apnea; Translations: [Other specified personal risk factors, not elsewhere classified] Episodic Residual codes; unclassified (1 source) Memory impairment; Translations: [Other amnesia] 06-18-2024 Episodic Residual codes; unclassified (2 sources) Confusional state; Translations: [Disorientation, unspecified] 01-05-2025 Episodic Spondylosis; intervertebral disc disorders; other back problems (1 source) Chronic low back pain; Translations: [Lumbago with sciatica, left side] 02-22-2021 Episodic Thyroid disorders (20 sources) Hypothyroidism; Translations: [Hypothyroidism, unspecified] 01-09-2012 Chronic Transient cerebral ischemia (11 sources) Transient cerebral ischemia; Translations: [Transient cerebral ischemic attack, unspecified] Chronic Unclassified (20 sources) SUMMARY Onset: 08-30-2010 Unclassified (1 source) [facility] Unclassified (1 source) Aneurysm of the ascending aorta, without rupture; Translations: [Aneurysm of the ascending aorta, without rupture] Onset: 01-10-2024 Past or Other Problems Problem Classification Problem Date Documented Da te Episodic/Chronic Abdominal pain (20 sources) Epigastric pain; Translations: [Epigastric pain] Onset: 06-17-2015 Resolved: 02-16-2016 02-16-2016 Episodic Acute bronchitis (5 sources) Acute bronchitis; Translations: [Acute bronchitis, unspecified] Onset: 01-31-2024 03-04-2024 Episodic Cardiac dysrhythmias (20 sources) Sinus bradycardia; Translations: [Bradycardia, unspecified] Onset: 04-10-2011 04-10-2011 Episodic Gastritis and duodenitis (20 sources) Duodenitis; Translations: [Duodenitis without bleeding] Onset: 10-10-2010 Resolved: 02-16-2016 10-10-2010 Episodic Gastrointestinal hemorrhage (20 sources) Melena; Translations: [Melena] Onset: 05-08-2005 Resolved: 02-17-2014 02-17-2014 Episodic Hemorrhoids (20 sources) Internal hemorrhoids; Translations: [Other hemorrhoids] Onset: 05-08-2005 12-26-2005 Episodic Malaise and fatigue (20 sources) Malaise and fatigue; Translations: [Other malaise] Onset: 07-21-2005 12-26-2005 Episodic Neoplasms of unspecified nature or uncertain behavior (20 sources) Neoplasm of uncertain behavior of skin; Translations: [Neoplasm of uncertain behavior of skin] Onset: 08-24-2006 04-12-2007 Episodic Nonspecific chest pain (20 sources) Chest pain; Translations: [Chest pain, unspecified] Onset: 08-30-2010 Episodic Other and unspecified benign neoplasm (20 sources) Benign neoplasm of colon; Translations: [Benign neoplasm of colon, unspecified] Onset: 05-08-2005 12-26-2005 Episodic Other and unspecified benign neoplasm (20 sources) Benign neoplasm of skin of face; Translations: [Other benign neoplasm of skin of unspecified part of face] Onset: 07-13-2006 08-14-2006 Episodic Other and unspecified benign neoplasm (20 sources) Benign tumor of eyelid; Translations: [Other benign neoplasm of skin of unspecified eyelid, including canthus] Onset: 08-31-2006 04-12-2007 Episodic Other circulatory disease (1 source) Other specified symptoms and signs involving the circulatory and respiratory systems; Translations: [Hyperinflation of lungs] Onset: 01-31-2024 Episodic Other connective tissue disease (20 sources) Muscle pain; Translations: [Myalgia and myositis, unspecified] Onset: 04-12-2007 04-14-2007 Episodic Other eye disorders (20 sources) Xanthelasma of unspecified eye, unspecified eyelid; Translations: [Xanthelasma of eyelid] Onset: 07-13-2006 08-14-2006 Episodic Other gastrointestinal disorders (20 sources) Chronic constipation; Translations: [Other constipation] Onset: 10-22-2012 10-22-2012 Episodic Other gastrointestinal disorders (1 source) Diarrhea, unspecified; Translations: [Diarrhea, unspecified] Onset: 08-15-2024 Episodic Other infections; including parasitic (20 sources) History of hepatitis C; Translations: [Personal history of other infectious and parasitic diseases] Onset: 10-25-2015 Resolved: 02-16-2016 07-11-2021 Episodic Other injuries and conditions due to external causes (20 sources) Open wound; Translations: [Other injury of unspecified body region, initial encounter] Onset: 07-25-2006 Resolved: 09-19-2017 09-19-2017 Episodic Other liver diseases (20 sources) Steatosis of liver; Translations: [Fatty (change of) liver, not elsewhere classified] Onset: 08-16-2009 Resolved: 02-17-2014 02-17-2014 Chronic Other lower respiratory disease (5 sources) Chronic cough; Translations: [Chronic cough] Onset: 01-31-2024 03-04-2024 Episodic Other lower respiratory disease (1 source) Shortness of breath; Translations: [Shortness of breath] Onset: 02-07-2024 Episodic Other lower respiratory disease (1 source) Other nonspecific abnormal finding of lung field; Translations: [Lung nodules] Onset: 07-30-2024 Episodic Other lower respiratory disease (1 source) Other forms of dyspnea; Translations: [SANDHU (dyspnea on exertion)] Onset: 01-31-2024 Episodic Other nervous system disorders (20 sources) Burning feet; Translations: [Other disturbances of skin sensation] Onset: 09-19-2017 09-19-2017 Episodic Other screening for suspected conditions (not mental disorders or infectious disease) (20 sources) Patient encounter status; Translations: [Encounter for screening for malignant neoplasm of colon] Onset: 06-17-2015 06-17-2015 Episodic Other skin disorders (20 sources) Alopecia; Translations: [Alopecia] Onset: 05-08-2005 12-26-2005 Episodic Other skin disorders (20 sources) Epidermoid cyst of skin; Translations: [Epidermal cyst] Onset: 07-13-2006 01-21-2010 Episodic Other skin disorders (20 sources) Acne; Translations: [Other acne] Onset: 07-13-2006 08-14-2006 Episodic Residual codes; unclassified (20 sources) Insomnia; Translations: [Insomnia, unspecified] Onset: 11-03-2008 11-03-2008 Episodic Screening and history of mental health and substance abuse codes (20 sources) Tobacco use and exposure - finding; Translations: [Personal history of nicotine dependence] Onset: 12-26-2005 12-26-2005 Episodic Viral infection (20 sources) Viral disease; Translations: [Viral infection, unspecified] Onset: 10-20-2008 Episodic Results Test Name Value Interpretation Reference Range Facility Absolute lymphocyte countOrd ered By: Jose Baldwin on 01-05-2025 Lymphocytes Auto (Unsp spec) [#/Vol] 0.43 10*3/uL Low 0.83-4.51 [facility] Absolute neutrophil countOrd ered By: Jose Baldwin on 01-05-2025 Neutrophils (Bld) [#/Vol] 5.0 10*3/uL 2.0-7.7 [facility] Activated partial thrombopla stin time (aPTT) in platelet poor plasma by coagulation aOrdered By: Jose Baldwin on 01-05-2025 aPTT Coag (PPP) [Time] 27.0 s 24.1-36.2 [facility] Anion gap in Serum or Plasma Ordered By: Jose Baldwin on 01-05-2025 Anion gap [Moles/Vol] 12 mmol/L 5-15 [facility] Automated lymphocyte count a s percentage of total leukocytesOrdered By: Jose Baldwin on 01-05-2025 Lymphocytes/100 WBC Auto (Unsp spec) 7.3 % Low 19-41 [facility] BUN/creatinine ratioOrdered By: Jose Baldwin on 01-05-2025 Urea nitrogen/Creatinine [Mass ratio] 13.0 mg/mg 10-20 [facility] Basophil percentageOrdered B y: Jose Baldwin on 01-05-2025 Basophils/100 WBC (Bld) 0.3 % 0-1 [facility] Carbon dioxide, total [Moles /volume] in Central venous bloodOrdered By: Jose Baldwin on 01-05-2025 CO2 [Moles/Vol] 22.5 mmol/L 21.0-32.0 [facility] Chloride assayOrdered By: Jason Baldwin on 01-05-2025 Chloride [Moles/Vol] 103 mmol/L 98-108 [facility] Eosinophil percentageOrdered By: Jose Baldwin on 01-05-2025 Eosinophils/100 WBC (Bld) 1.2 % 0-5 [facility] Erythrocyte distribution wid th ratioOrdered By: Jose Baldwin on 01-05-2025 Erythrocyte distribution width (RBC) [Ratio] 13.4 % 11.6-14.6 [facility] Erythrocyte distribution wid th standard deviationOrdered By: Jose Baldwin on 01-05-2025 Erythrocyte distribution width (RBC) [Ratio] 46.9 fl High 35.1-43.9 [facility] Glomerular filtration rate ( GFR) estimation/1.73 sq m using serum, plasma, or whole bOrdered By: Jose Baldwin on 01-05-2025 GFR/1.73 sq M.predicted among non-blacks MDRD (S/P/Bld) [Vol rate/Area] 68 mL/min/{1.73_m2} >60 [facility] Comment on above: mL/min/1.73m2 CKD-EP I Creatinine Equation (2020) Hematocrit Auto (Bld) [Volum e fraction]Ordered By: Jose Baldwin on 01-05-2025 Hematocrit (Bld) [Volume fraction] 36.2 % Low 40-54 [facility] Hemoglobin measurementOrdere d By: Jose Baldwin on 01-05-2025 Hemoglobin (Bld) [Mass/Vol] 11.8 g/dL Low 13.0-16.5 [facility] Immature granulocytes/100 WB C Auto (Bld)Ordered By: Jose Baldwin on 01-05-2025 Immature granulocytes/100 WBC (Bld) 0.300 % 0.0-0.9 [facility] Comment on above: IG% - Immature Granu locytes (promyelocytes, myelocytes and metamyelocytes) > 1% indicates that a LEFT SHIFT is Present. International normalized rat io (INR) calculationOrdered By: Jose Baldwin on 01-05-2025 INR Coag (Bld) [Relative time] 1.1 {INR} [facility] MCV (mean corpuscular volume ) determinationOrdered By: Jose Baldwin on 01-05-2025 MCV (RBC) [Entitic vol] 95.0 fL High 80-94 [facility] Mean corpuscular hemoglobin (MCH) determinationOrdered By: Jose Baldwin on 01-05-2025 MCH (RBC) [Entitic mass] 31.0 pg 27.0-32.0 [facility] Mean corpuscular hemoglobin concentration (MCHC) determinationOrdered By: Jose Baldwin on 01-05-2025 MCHC (RBC) [Mass/Vol] 32.6 g/dL 32-36 [facility] Mean platelet volume determi nationOrdered By: Jose Baldwin on 01-05-2025 Platelet mean volume (Bld) [Entitic vol] 10.0 fL 6.2-12.0 [facility] Monocyte percentageOrdered B y: Jose Baldwin on 01-05-2025 Monocytes/100 WBC (Bld) 5.8 % 0-10 [facility] Neutrophil percentageOrdered By: Jose Baldwin on 01-05-2025 Neutrophils/100 WBC (Bld) 85.1 % High 47-70 [facility] Nucleated red blood cell per centageOrdered By: Jose Baldwin on 01-05-2025 Nucleated RBC/100 WBC (Bld) [Ratio] 0 % 0-5 [facility] Platelet countOrdered By: Jason Baldwin on 01-05-2025 Platelets (Bld) [#/Vol] 137 10*3/uL Low 150-450 [facility] Potassium measurement (mass/ volume)Ordered By: Jose Baldwin on 01-05-2025 Potassium (Unsp spec) [Mass/Vol] 3.4 mmol/L 3.3-5.1 [facility] Prothrombin timeOrdered By: Jose Baldwin on 01-05-2025 PT Coag (PPP) [Time] 14.9 s 11.7-14.9 [facility] RBC Auto (Bld) [#/Vol]Ordere d By: Jose Baldwin on 01-05-2025 RBC (Bld) [#/Vol] 3.81 10*6/uL Low 4.6-6.2 [facility] Serum creatinine measurement (mass/volume)Ordered By: Jose Baldwin on 01-05-2025 Creatinine [Mass/Vol] 1.11 mg/dL 0.70-1.20 [facility] Serum glucose measurement (m ass/volume)Ordered By: Jose Baldwin on 01-05-2025 Glucose [Mass/Vol] 112 mg/dL High 70-99 [facility] Serum or plasma calcium marcel urement (mass/volume)Ordered By: Jose Baldwin on 01-05-2025 Calcium [Mass/Vol] 8.4 mg/dL 7.6-11.0 [facility] Serum or plasma urea nitroge n measurement (mass/volume)Ordered By: Jose Baldwin on 01-05-2025 Urea nitrogen [Mass/Vol] 14 mg/dL 4-19 [facility] Sodium levelOrdered By: Jose Baldwin on 01-05-2025 Sodium [Moles/Vol] 137 mmol/L 133-145 [facility] Troponin T.cardiac [Mass/vol ume] in Serum or Plasma by High sensitivity methodOrdered By: Jose Baldwin on 01-05-2025 Troponin T.cardiac High sensitivity method [Mass/Vol] 15 ng/L <22 [facility] White blood cell (WBC) count Ordered By: Jose Baldwin on 01-05-2025 WBC (Bld) [#/Vol] 5.9 10*3/uL 4.4-11.0 [facility] 12-02-2024 [facility] Office Visit (RADTWS ) -- KIMBERLYSHASHANK RAMIREZ ([id number]) 1945 M Date Time Provider Department 12/02/24 2:00 PM ANDREA [facility]WEND[facility] During your visit today, we recorded the following information about you: Temperature Pulse Blood pressure 98.4 degrees 62/minute 112/65 Suly Cerrato, RN 12/02/2024 2:21 PM Signed Radiation Therapy - Nursing Note (OTV) PATIENT NAME: Shashank Espinoza PATIENT December 02, 2024 [facility] FACILITY/LOCATION: [place] NURSING NOTE TYPE: PROSTATE - MALE PELVIS Subjective Data I've been peeing about every 30-40 minutes but just now there was a lot in there but she said I wasn't real full Was up bunches last night Additional Data Do you want to see a School Librarian? No Status: Patient is male Stress Scale: On a scale of 0 to 10, what number best describes how much distress you have experienced in the past week?(0 being no distress and 10 being extreme distress) 5 Social work notified: Pt denied need to see web content & social media manager at this time. Nursing Assessment Fatigue: increased fatigue over baseline but not altering normal activities Appetite: fair Nutritional Intake: Regular oral intake. Weight Gain/Loss: Not applicable Ambulatory weight history: Last 6 Encounter Wt Readings: Date: Wt: 10/22/2024 78.2 kg (172 lb 6.4 oz) 08/11/2024 75.8 kg (167 lb) 07/30/2024 75 kg (165 lb 5.5 oz) 06/24/2024 74.8 kg (164 lb 12.8 oz) 06/18/2024 74 kg (163 lb 2.3 oz) 04/16/2024 73.9 kg (163 lb) Nausea:None Vomiting: None Bowel Function: normal bowel movements Erythema/Hyperpigmentation :none Desquamation:none Rash:none Skin Care: Aquaphor Skin Sensation: Within Normal Limits Focused Assessment PROSTATE - MALE PELVIS: Rectal bleeding: No. Rectal pain: No. Bladder function: frequency, nocturia. Urinary frequency (D/N): every 30-40 min/many. SIGNED by: ALBERT Arceo Daesung, MD 12/02/2024 2:21 PM Signed Radiation Oncology - On Treatment Review (OTR) Note PATIENT NAME: Shashank Espinoza PATIENT DIAGNOSIS: Clinical stage IIC, cT1c, cN0, prostate adenocarcinoma with Wesley score 7 (4+3), grade group 3, PSA 11.54. COURSE: definitive AREA TREATED: Pelvis/prostate/SV CURRENT DOSE: 6500 cGy in 26 fx PLANNED DOSE: 7000 cGy in 28 fx SUBJECTIVE: He is doing well without any specific new complaints. He continues to have increased urinary frequency but without significant changes from last week. EXAM: KPS: 90 General Appearance: Alert and oriented. No acute distress. IMAGING/LAB RESULTS: None. Treatment chart checked: Yes Patient treatment site reviewed and verified:Yes CBCTs reviewed and current:Yes Medications started: Flomax. Imodium as needed. ASSESSMENT/PLAN: Clinically stable. Toxicity within expected parameters. Continue radiation treatment as planned. Andrea Wu MD Allergies As of Date: 12/02/2024 Noted Allergy Reaction PRILOSEC (OMEPRAZOLE MAGNESIUM) 09/27/2010 14 - Other: See Comments Comments: GI upset Date Reviewed: 12/02/2024 Reviewed by: Suly Cerrato RN - Fully Assessed Reason for Visit: Radiotherapy On-treatment Visit [1722] Primary Visit Diagnosis:Prostate cancer (HCC) [C61] Prescriptions as of 12/02/2024 - tamsulosin (FLOMAX) 0.4 mg Take 1 capsule by mouth once daily. - clonazePAM (KLONOPIN) 1 mg tablet Take 1 tablet by mouth daily at bedtime. May also take 1 tablet once daily as needed. Do all this for 90 days. Patient should start on November 06, 2024. - levothyroxine (SYNTHROID) 50 mcg tablet Take 1 tablet by mouth once daily. Except take 2 on Sunday ([facility] fills RX) - tiotropium-olodaterol (STIOLTO RESPIMAT) 2.5-2.5 mcg/actuation inhaler Inhale 2 Puffs as instructed once daily. - albuterol HFA (PROVENTIL HFA, VENTOLIN HFA) 90 mcg/actuation inhaler Inhale 2 Puffs as instructed every 4 hours as needed. - ipratropium bromide (ATROVENT) 42 mcg (0.06 %) nasal spray Use 2 Sprays in the nose four times daily as needed. - fluticasone (FLONASE) 50 mcg/actuation nasal spray Use 2 Sprays in each nostril once daily as needed. Rinse mouth after use. - traZODone (DESYREL) 100 mg tablet Take 1-2 tablets by mouth daily at bedtime. (Get through [facility] now) - psyllium husk (KONSYL SUGAR-FREE) 6 gram/6 gram powd Take 1 Scoop by mouth once daily as needed. - nitroglycerin sublingual (NITROQUICK) 0.4 mg SL tablet Dissolve 1 tablet under the tongue as needed. FOR CHEST PAIN. IF NO RELIEF CALL 911 - docusate sodium (COLACE) 100 mg capsule Take 1 capsule by mouth twice daily as needed for Constipation. - atorvastatin (LIPITOR) 40 mg tablet Take 1 tablet by mouth once daily. For cholesterol. (From [facility]) - famotidine (PEPCID) 40 mg tablet Take 1 tablet by mouth twice daily. - amLODIPine (NORVASC) 10 mg tablet Take 1 tablet by mouth once daily. 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 Melgoza (more content not included)... Normal [facility] CNOVon 11-25-2024 CNOV Office Visit (RADTWS ) -- SHASHANK ESPINOZA ([id number]) 1945 Date Time Provider Department 11/25/24 2:00 PM ANDREA WU During your visit today, we recorded the following information about you: Temperature Pulse Blood pressure 98.5 degrees 67/minute 116/75 Andrea Wu MD 11/25/2024 2:44 PM Signed Radiation Oncology - On Treatment Review (OTR) Note PATIENT NAME: Shashank Espinoza PATIENT DIAGNOSIS: Clinical stage IIC, cT1c, cN0, prostate adenocarcinoma with Wesley score 7 (4+3), grade group 3, PSA 11.54. COURSE: definitive AREA TREATED: Pelvis/prostate/SV CURRENT DOSE: 5250 cGy in 21 fx PLANNED DOSE: 7000 cGy in 28 fx SUBJECTIVE: He has occasional loose stool. EXAM: KPS: 90 General Appearance: Alert and oriented. No acute distress. IMAGING/LAB RESULTS: None. Treatment chart checked: Yes Patient treatment site reviewed and verified:Yes CBCTs reviewed and current:Yes Medications started: Flomax. Imodium as needed. ASSESSMENT/PLAN: Clinically stable. Toxicity within expected parameters. Continue radiation treatment as planned. MD Saqib Zuleta Janice, ALBERT 11/25/2024 2:44 PM Signed Radiation Therapy - Nursing Note (OTV) PATIENT NAME: Shashank Espinoza PATIENT November 25, 2024 [facility] FACILITY/LOCATION: [facility] NOTE TYPE: PROSTATE - MALE PELVIS Subjective Data Had very urgent loose stool just now after treatment, states it is not liquid but just could not hold it Additional Data Do you want to see a School Librarian? No Status: Patient is male Stress Scale: On a scale of 0 to 10, what number best describes how much distress you have experienced in the past week?(0 being no distress and 10 being extreme distress) 3 Social work notified: Pt denied need to see web content & social media manager at this time. Nursing Assessment Fatigue: increased fatigue over baseline but not altering normal activities Appetite: good Nutritional Intake: Regular oral intake. Weight Gain/Loss: Not applicable Ambulatory weight history: Last 6 Encounter Wt Readings: Date: Wt: 10/22/2024 78.2 kg (172 lb 6.4 oz) 08/11/2024 75.8 kg (167 lb) 07/30/2024 75 kg (165 lb 5.5 oz) 06/24/2024 74.8 kg (164 lb 12.8 oz) 06/18/2024 74 kg (163 lb 2.3 oz) 04/16/2024 73.9 kg (163 lb) Nausea:None Vomiting: None Bowel Function: very loose stools Erythema/Hyperpigmentation :none Desquamation:none Rash:none Skin Care: Aquaphor Skin Sensation: Within Normal Limits Focused Assessment PROSTATE - MALE PELVIS: Rectal bleeding: No. Rectal pain: No. Bladder function: no problems. Urinary frequency (D/N): stable/stable. SIGNED by: Suly Cerrato RN Allergies As of Date: 11/25/2024 Noted Allergy Reaction PRILOSEC (OMEPRAZOLE MAGNESIUM) 09/27/2010 14 - Other: See Comments Comments: GI upset Date Reviewed: 11/25/2024 Reviewed by: Suly Cerrato RN - Fully Assessed Reason for Visit: Radiotherapy On-treatment Visit [1722] Primary Visit Diagnosis:Prostate cancer (HCC) [C61] Prescriptions as of 11/25/2024 - tamsulosin (FLOMAX) 0.4 mg Take 1 capsule by mouth once daily. - clonazePAM (KLONOPIN) 1 mg tablet Take 1 tablet by mouth daily at bedtime. May also take 1 tablet once daily as needed. Do all this for 90 days. Patient should start on November 06, 2024. - levothyroxine (SYNTHROID) 50 mcg tablet Take 1 tablet by mouth once daily. Except take 2 on Sunday [facility]) - tiotropium-olodaterol (STIOLTO RESPIMAT) 2.5-2.5 mcg/actuation inhaler Inhale 2 Puffs as instructed once daily. - albuterol HFA (PROVENTIL HFA, VENTOLIN HFA) 90 mcg/actuation inhaler Inhale 2 Puffs as instructed every 4 hours as needed. - ipratropium bromide (ATROVENT) 42 mcg (0.06 %) nasal spray Use 2 Sprays in the nose four times daily as needed. - fluticasone (FLONASE) 50 mcg/actuation nasal spray Use 2 Sprays in each nostril once daily as needed. Rinse mouth after use. - traZODone (DESYREL) 100 mg tablet Take 1-2 tablets by mouth daily at bedtime. ([facility]) - psyllium husk (KONSYL SUGAR-FREE) 6 gram/6 gram powd Take 1 Scoop by mouth once daily as needed. - nitroglycerin sublingual (NITROQUICK) 0.4 mg SL tablet Dissolve 1 tablet under the tongue as needed. FOR CHEST PAIN. IF NO RELIEF CALL 911 - docusate sodium (COLACE) 100 mg capsule Take 1 capsule by mouth twice daily as needed for Constipation. - atorvastatin (LIPITOR) 40 mg tablet Take 1 tablet by mouth once daily. For cholesterol. (From [place]) - famotidine (PEPCID) 40 mg tablet Take 1 tablet by mouth twice daily. - amLODIPine (NORVASC) 10 mg tablet Take 1 tablet by mouth once daily. ([facility] senior mechanical engineer increased dose--Dr. Cruz) - losartan (COZAAR) 100 mg tablet Take 1 tablet by mouth once daily. - Aspirin 81 mg ORAL Tab Take 81 mg by mouth once daily. Problem List As Of Date 11/25/2024 Noted R (more content not included)... Normal [facility] 11-20-2024 CNPN Telephone (RADTWS) -- SHASHANK ESPINOZA ([id number]) 1945 M Date Time Provider Department 11/20/24 ANDREA WU RADTWS During your visit today, we recorded the following information about you: Kary Mcclellan, RN 11/20/2024 1:53 PM Addendum I notified pt that his urinalysis was negative for UTI. Pt reports increased urinary frequency and some urgency with bowel movements. I reviewed with patient foods to avoid that can irritate his bowels and her verbalized understanding. He denies diarrhea but is aware that if he has it he can use imodium over the counter per the box instructions. Dr Wu aware and recommends that pt start over the counter AZO. Pt notified and wrote it down to go purchase at the pharmacy. Allergies As of Date: 11/20/2024 Noted Allergy Reaction PRILOSEC (OMEPRAZOLE MAGNESIUM) 09/27/2010 14 - Other: See Comments Comments: GI upset Date Reviewed: 11/11/2024 Reviewed by: Suly Cerrato, ALBERT - Fully Assessed Reason for Visit: Results [95] Prescriptions as of 11/20/2024 - tamsulosin (FLOMAX) 0.4 mg Take 1 capsule by mouth once daily. - clonazePAM (KLONOPIN) 1 mg tablet Take 1 tablet by mouth daily at bedtime. May also take 1 tablet once daily as needed. Do all this for 90 days. Patient should start on November 06, 2024. - levothyroxine (SYNTHROID) 50 mcg tablet Take 1 tablet by mouth once daily. Except take 2 on Sunday ([facility]) - tiotropium-olodaterol (STIOLTO RESPIMAT) 2.5-2.5 mcg/actuation inhaler Inhale 2 Puffs as instructed once daily. - albuterol HFA (PROVENTIL HFA, VENTOLIN HFA) 90 mcg/actuation inhaler Inhale 2 Puffs as instructed every 4 hours as needed. - ipratropium bromide (ATROVENT) 42 mcg (0.06 %) nasal spray Use 2 Sprays in the nose four times daily as needed. - fluticasone (FLONASE) 50 mcg/actuation nasal spray Use 2 Sprays in each nostril once daily as needed. Rinse mouth after use. - traZODone (DESYREL) 100 mg tablet Take 1-2 tablets by mouth daily at bedtime. ([facility]) - psyllium husk (KONSYL SUGAR-FREE) 6 gram/6 gram powd Take 1 Scoop by mouth once daily as needed. - nitroglycerin sublingual (NITROQUICK) 0.4 mg SL tablet Dissolve 1 tablet under the tongue as needed. FOR CHEST PAIN. IF NO RELIEF CALL 911 - docusate sodium (COLACE) 100 mg capsule Take 1 capsule by mouth twice daily as needed for Constipation. - atorvastatin (LIPITOR) 40 mg tablet Take 1 tablet by mouth once daily. For cholesterol. (From [place]) - famotidine (PEPCID) 40 mg tablet Take 1 tablet by mouth twice daily. - amLODIPine (NORVASC) 10 mg tablet Take 1 tablet by mouth once daily. 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 Cruz) - losartan (COZAAR) 100 mg tablet Take 1 tablet by mouth once daily. - Aspirin 81 mg ORAL Tab Take 81 mg by mouth once daily. Problem List As Of Date 11/20/2024 Noted Resolved Disorder of bone and cartilage [M89.9, M94.9] Depression [F32.A] Anxiety [F41.9] Chronic hepatitis C without mention of hepatic *05/08/2005 02/16/2016 ALOPECIA [704.0] 05/08/2005 INT HEMORRHOID W/O COMPL [K64.8] 05/08/2005 COLON POLYP [D12.6] 05/08/2005 ERECTILE DYSFUNCTION [F52.9] 05/08/2005 Hemorrhage of gastrointestinal tract, unspecifi*05/08/2005 02/17/2014 MALAISE AND FATIGUE NEC [R53.81, R53.83] 07/21/2005 PERS HX TOBACCO USE [Z87.891] 12/26/2005 Epidermal Cyst [L72.0] 07/13/2006 BENIGN MICHAEL SKIN FACE NEC [D23.30] 07/13/2006 XANTHALASMA///MIXED HYPERLIPIDEMIA [E78.2] 07/13/2006 XANTHELASMA [H02.60] 07/13/2006 ACNE NEC [L70.8] 07/13/2006 Open wound(s) (multiple) of unspecified site(s)*07/25/2006 09/19/2017 UNCERTAIN BEHAV NEOPL SKIN [D48.5] 08/24/2006 BENIGN MICHAEL SKIN EYELID [D23.10] 08/31/2006 MYALGIA AND MYOSITIS NOS [FYP3155] 04/12/2007 ADJUSTMENT DISORDER WITH DEPRESSED MOOD [F43.21]12/13/2007 VIRAL WARTS NOS [B07.9] 10/20/2008 INSOMNIA NOS [G47.00] 11/03/2008 CHRONIC PAIN NEC [G89.29] 11/03/2008 Fatty liver [K76.0] 08/16/2009 02/17/2014 SUMMARY [V999.95] 08/30/2010 Chest pain [R07.9] 08/30/2010 Melena [K92.1] 08/30/2010 HLD (hyperlipidemia) [E78.5] 08/30/2010 Hypertension goal BP (blood pressure) < 140/90 *08/30/2010 CAD (coronary artery disease), [place] coronary *08/30/2010 S/P coronary artery stent placement [Z95.5] 08/30/2010 Acute gastritis without mention of hemorrhage [*10/10/2010 02/16/2016 Duodenitis without mention of hemorrhage [K29.8*10/10/2010 Sinus bradycardia [R00.1] 04/10/2011 Carotid artery occlusion, 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 Normal [facility] Urinalysis complete panel (U )on 11-19-2024 Bacteria LM.HPF (Urine sed) [#/Area] Negative Normal Negative [facility] Comment on above: Order Comment: Speci men Type: URINE SPECIMENOrdering Facility: [facility] Address: [address] [place] [address] Performed By: #### 2 4356-8 ####[facility] LABCLIA [id number] [place] [address] [place] Bilirubin Ql (U) Negative Normal Negative [facility] Comment on above: Order Comment: Speci men Type: URINE SPECIMENOrdering Facility: [facility] Address: [address] [place] [address] Performed By: #### 2 4356-8 ####[facility] LABCLIA [id number] [address] [place] [address] [place] Clarity (Unsp spec) Clear Normal Clear [facility] Comment on above: Order Comment: Speci men Type: URINE SPECIMENOrdering Facility: [facility] Address: [address] [place] [address] Performed By: #### 2 4356-8 ####[facility] LABCLIA [id number] [address] [place] [address] [place] Color (U) Yellow Normal Yellow [facility] Comment on above: Order Comment: Speci men Type: URINE SPECIMENOrdering Facility: [facility] Address: [address] [place] [address] Performed By: #### 2 4356-8 ####[facility] LABCLIA [id number] [address], [facility] [place] Epithelial cells LM.HPF (Urine sed) [#/Area] None Seen Normal [facility] Comment on above: Order Comment: Speci men Type: URINE SPECIMENOrdering Facility: [facility] Address: [address] [place] [address] Performed By: #### 2 4356-8 ####[facility] LABCLIA [id number] [address], [facility] [place] Glucose Test strip (U) [Mass/Vol] Negative Normal Negative [facility] Comment on above: Order Comment: Speci men Type: URINE SPECIMENOrdering Facility: [facility] Address: [address] [place] [address] Performed By: #### 2 4356-8 ####[facility] LABCLIA [id number] [place] [id number] [place] Hemoglobin Ql (U) Negative Normal Negative [facility] Comment on above: Order Comment: Speci men Type: URINE SPECIMENOrdering Facility: [facility] Address: [address] [place], [place] [id number] Performed By: #### 2 4356-8 ####[facility] LABCLIA [id number] [address] [place] [address] [place] Hyaline casts (Urine sed) [#/Area] 0 /[LPF] Normal 0 /LPF [facility] Comment on above: Order Comment: Speci men Type: URINE SPECIMENOrdering Facility: [facility] Address: [address] [place] [address] Performed By: #### 2 4356-8 ####[facility] LABCLIA [id number] [address], [facility] [place] Ketones Ql (U) Negative Normal Negative [facility] Comment on above: Order Comment: Speci men Type: URINE SPECIMENOrdering Facility: [facility] Address: [address] [place] [address] Performed By: #### 2 4356-8 ####[facility] LABCLIA [id number] [place] [address] [place] Leukocyte esterase Test strip Ql (U) Negative Normal Negative [facility] Comment on above: Order Comment: Speci men Type: URINE SPECIMENOrdering Facility: [facility] Address: [address] [place] [address] Performed By: #### 2 4356-8 ####[facility] LABCLIA [id number] [address], [facility] [place] Nitrite Ql (U) Negative Normal Negative [facility] Comment on above: Order Comment: Speci men Type: URINE SPECIMENOrdering Facility: [facility] Address: [address] [place], [place] [id number] Performed By: #### 2 4356-8 ####[facility] LABCLIA [id number] [place] [id number] [place] pH (U) 6.5 [pH] Normal <8.5 [facility] Comment on above: Order Comment: Speci men Type: URINE SPECIMENOrdering Facility: [facility] Address: [address] [place] [address] Performed By: #### 2 4356-8 ####[facility] LABIA [id number] [address], [place] [address] [place] Protein (U) [Mass/Vol] Negative Normal Negative [facility] Comment on above: Order Comment: Speci men Type: URINE SPECIMENOrdering Facility: [facility] Address: [address] [place] [address] Performed By: #### 2 4356-8 ####[facility] LABIA [id number] [address], [place] [address] [place] RBC LM.HPF (Urine sed) [#/Area] 0-2 /HPF Normal 0-2 /HPF [facility] Comment on above: Order Comment: Speci men Type: URINE SPECIMENOrdering Facility: [facility] Address: [address] [place] [address] Performed By: #### 2 4356-8 ####[facility] LABIA [id number] [address], [place] [address] [place] Specific gravity (U) [Rel density] 1.007 Normal 1.005-1.030 [facility] Comment on above: Order Comment: Speci men Type: URINE SPECIMENOrdering Facility: [facility] Address: [address] [place] [address] Performed By: #### 2 4356-8 ####[facility] LABIA [id number] [address], [facility] [place] Urobilinogen Ql (U) 0.2 EU/dL Normal 0.2-1.0 EU/dL [facility] Comment on above: Order Comment: Speci men Type: URINE SPECIMENOrdering Facility: [facility] Address: [address] [place] [address] Performed By: #### 2 4356-8 ####[facility] LABIA [id number] [address], [facility] [place] WBC LM.HPF (Urine sed) [#/Area] 0-5 /HPF Normal 0-5 /HPF [facility] Comment on above: Order Comment: Speci men Type: URINE SPECIMENOrdering Facility: [facility] Address: [address] [facility] [place] [address] Performed By: #### 2 4356-8 ####[facility] LABCLIA [id number] [facility]ITALLebron GRACEMONTJULISSA [address] [place] CNOVon 11-18-2024 CNOV Office Visit (RADTWS ) -- OLGASHASHANK Asher ([id number]) 1945 M Date Time Provider Department 11/18/24 2:00 PM ANDREA WU RADTWS During your visit today, we recorded the following information about you: Temperature Pulse Blood pressure 98.5 degrees 72/minute 136/88 Suly Cerrato, RN 11/18/2024 2:25 PM Signed Radiation Therapy - Nursing Note (OTV) PATIENT NAME: Shashank Espinoza PATIENT November 18, 2024 [facility] FACILITY/LOCATION: [place] NURSING NOTE TYPE: PROSTATE - MALE PELVIS Subjective Data These pills aren't helping I was up 7 times last night Referring to flowmax he started sunday Additional Data Do you want to see a School Librarian? No Status: Patient is male Stress Scale: On a scale of 0 to 10, what number best describes how much distress you have experienced in the past week?(0 being no distress and 10 being extreme distress) 5 Social work notified: Pt denied need to see web content & social media manager at this time. Nursing Assessment Fatigue: none Appetite: good Nutritional Intake: Regular oral intake. Weight Gain/Loss: Not applicable Ambulatory weight history: Last 6 Encounter Wt Readings: Date: Wt: 10/22/2024 78.2 kg (172 lb 6.4 oz) 08/11/2024 75.8 kg (167 lb) 07/30/2024 75 kg (165 lb 5.5 oz) 06/24/2024 74.8 kg (164 lb 12.8 oz) 06/18/2024 74 kg (163 lb 2.3 oz) 04/16/2024 73.9 kg (163 lb) Nausea:None Vomiting: None Bowel Function: normal bowel movements Erythema/Hyperpigmentation :none Desquamation:none Rash:none Skin Care: Aquaphor Skin Sensation: Within Normal Limits Focused Assessment PROSTATE - MALE PELVIS: Rectal bleeding: No. Rectal pain: No. Bladder function: frequency. Urinary frequency (D/N): every 30 mins, sometimes longer /up last 7 times . SIGNED by: ALBERT Arceo Daesung, MD 11/18/2024 2:25 PM Signed Radiation Oncology - On Treatment Review (OTR) Note PATIENT NAME: Shashank Espinoza PATIENT DIAGNOSIS: Clinical stage IIC, cT1c, cN0, prostate adenocarcinoma with Wesley score 7 (4+3), grade group 3, PSA 11.54. COURSE: definitive AREA TREATED: Pelvis/prostate/SV CURRENT DOSE: 4000 cGy in 16 fx PLANNED DOSE: 7000 cGy in 28 fx SUBJECTIVE: He has increased urinary frequency and nocturia. EXAM: KPS: 90 General Appearance: Alert and oriented. No acute distress. IMAGING/LAB RESULTS: UA and culture if indicated. Treatment chart checked: Yes Patient treatment site reviewed and verified:Yes CBCTs reviewed and current:Yes Medications started: Flomax. ASSESSMENT/PLAN: Clinically stable. Toxicity within expected parameters. Continue radiation treatment as planned. Andrea Wu MD Allergies As of Date: 11/18/2024 Noted Allergy Reaction PRILOSEC (OMEPRAZOLE MAGNESIUM) 09/27/2010 14 - Other: See Comments Comments: GI upset Date Reviewed: 11/11/2024 Reviewed by: Suly Cerrato RN - Fully Assessed Reason for Visit: Radiotherapy On-treatment Visit [1722] Primary Visit Diagnosis:Prostate cancer (HCC) [C61] Other Visit Diagnosis:Urinary frequency [R35.0] Order(s):URINALYSIS (WITH MICROSCOPIC) WITH CULTURE IF INDICATED [SQUACII] Order #: [id number] FUTURE Prescriptions as of 11/18/2024 - tamsulosin (FLOMAX) 0.4 mg Take 1 capsule by mouth once daily. - clonazePAM (KLONOPIN) 1 mg tablet Take 1 tablet by mouth daily at bedtime. May also take 1 tablet once daily as needed. Do all this for 90 days. Patient should start on November 06, 2024. - levothyroxine (SYNTHROID) 50 mcg tablet Take 1 tablet by mouth once daily. Except take 2 on Sunday ([facility]) - tiotropium-olodaterol (STIOLTO RESPIMAT) 2.5-2.5 mcg/actuation inhaler Inhale 2 Puffs as instructed once daily. - albuterol HFA (PROVENTIL HFA, VENTOLIN HFA) 90 mcg/actuation inhaler Inhale 2 Puffs as instructed every 4 hours as needed. - ipratropium bromide (ATROVENT) 42 mcg (0.06 %) nasal spray Use 2 Sprays in the nose four times daily as needed. - fluticasone (FLONASE) 50 mcg/actuation nasal spray Use 2 Sprays in each nostril once daily as needed. Rinse mouth after use. - traZODone (DESYREL) 100 mg tablet Take 1-2 tablets by mouth daily at bedtime. (Get through [facility] now) - psyllium husk (KONSYL SUGAR-FREE) 6 gram/6 gram powd Take 1 Scoop by mouth once daily as needed. - nitroglycerin sublingual (NITROQUICK) 0.4 mg SL tablet Dissolve 1 tablet under the tongue as needed. FOR CHEST PAIN. IF NO RELIEF CALL 911 - docusate sodium (COLACE) 100 mg capsule Take 1 capsule by mouth twice daily as needed for Constipation. - atorvastatin (LIPITOR) 40 mg tablet Take 1 tablet by mouth once daily. For cholesterol. (From [facility]) - famotidine (PEPCID) 40 mg tablet Take 1 tablet by mouth twice daily. - amLODIPine (NORVASC) 10 mg tablet Take 1 tablet by mouth once daily. 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 Cruz) - losartan (COZAAR) 100 mg table (more content not included)... Normal [facility] CNOVon 11-11-2024 CNOV Office Visit (RADTWS ) -- SHASHANK ESPINOZA ([id number]) 1945 M Date Time Provider Department 11/11/24 2:00 PM NADREA WU During your visit today, we recorded the following information about you: Temperature Pulse Blood pressure 98.8 degrees 73/minute 114/70 Suly Cerrato, RN 11/11/2024 2:17 PM Signed Radiation Therapy - Nursing Note (OTV) PATIENT NAME: Shashank Espinoza PATIENT November 11, 2024 [facility] FACILITY/LOCATION: [place] NURSING NOTE TYPE: PROSTATE - MALE PELVIS Subjective Data I dont have pain with urination but do have to go frequently Additional Data Do you want to see a School Librarian? No Status: Patient is male Stress Scale: On a scale of 0 to 10, what number best describes how much distress you have experienced in the past week?(0 being no distress and 10 being extreme distress) 5 Social work notified: Pt denied need to see web content & social media manager at this time. Nursing Assessment Fatigue: increased fatigue over baseline but not altering normal activities Appetite: good in morning, eats at [employer] q day, less thru out day Nutritional Intake: Regular oral intake. Weight Gain/Loss: Not applicable Ambulatory weight history: Last 6 Encounter Wt Readings: Date: Wt: 10/22/2024 78.2 kg (172 lb 6.4 oz) 08/11/2024 75.8 kg (167 lb) 07/30/2024 75 kg (165 lb 5.5 oz) 06/24/2024 74.8 kg (164 lb 12.8 oz) 06/18/2024 74 kg (163 lb 2.3 oz) 04/16/2024 73.9 kg (163 lb) Nausea:None Vomiting: None Bowel Function: normal bowel movements Erythema/Hyperpigmentation :none Desquamation:none Rash:none Skin Care: Aquaphor Skin Sensation: Within Normal Limits Focused Assessment RECTAL: Dysuria: none, Rectal pain none, and Rectal bleeding none SIGNED by: ALBERT Arceo Daesung, MD 11/11/2024 2:17 PM Signed Radiation Oncology - On Treatment Review (OTR) Note PATIENT NAME: Shashakn Espinoza PATIENT DIAGNOSIS: Clinical stage IIC, cT1c, cN0, prostate adenocarcinoma with Wesley score 7 (4+3), grade group 3, PSA 11.54. COURSE: definitive AREA TREATED: Pelvis/prostate/SV CURRENT DOSE: 2750 cGy in 11 fx PLANNED DOSE: 7000 cGy in 28 fx SUBJECTIVE: He is doing well without any specific new complaints. No significant changes in his urinary symptoms from his baseline. EXAM: KPS: 90 General Appearance: Alert and oriented. No acute distress. IMAGING/LAB RESULTS: None Treatment chart checked: Yes Patient treatment site reviewed and verified:Yes CBCTs reviewed and current:Yes Medications started: Flomax if urinary symptoms worsen. ASSESSMENT/PLAN: Clinically stable. Toxicity within expected parameters. Continue radiation treatment as planned. Andrea Wu MD Allergies As of Date: 11/11/2024 Noted Allergy Reaction PRILOSEC (OMEPRAZOLE MAGNESIUM) 09/27/2010 14 - Other: See Comments Comments: GI upset Date Reviewed: 11/11/2024 Reviewed by: Suly Cerrato RN - Fully Assessed Reason for Visit: Radiotherapy On-treatment Visit [1722] Primary Visit Diagnosis:Prostate cancer (HCC) [C61] Prescriptions as of 11/11/2024 - clonazePAM (KLONOPIN) 1 mg tablet Take 1 tablet by mouth daily at bedtime. May also take 1 tablet once daily as needed. Do all this for 90 days. Patient should start on November 06, 2024. - levothyroxine (SYNTHROID) 50 mcg tablet Take 1 tablet by mouth once daily. Except take 2 on Sunday ([facility]) - tiotropium-olodaterol (STIOLTO RESPIMAT) 2.5-2.5 mcg/actuation inhaler Inhale 2 Puffs as instructed once daily. - albuterol HFA (PROVENTIL HFA, VENTOLIN HFA) 90 mcg/actuation inhaler Inhale 2 Puffs as instructed every 4 hours as needed. - ipratropium bromide (ATROVENT) 42 mcg (0.06 %) nasal spray Use 2 Sprays in the nose four times daily as needed. - fluticasone (FLONASE) 50 mcg/actuation nasal spray Use 2 Sprays in each nostril once daily as needed. Rinse mouth after use. - traZODone (DESYREL) 100 mg tablet Take 1-2 tablets by mouth daily at bedtime. (Get through [facility] now) - psyllium husk (KONSYL SUGAR-FREE) 6 gram/6 gram powd Take 1 Scoop by mouth once daily as needed. - nitroglycerin sublingual (NITROQUICK) 0.4 mg SL tablet Dissolve 1 tablet under the tongue as needed. FOR CHEST PAIN. IF NO RELIEF CALL 911 - docusate sodium (COLACE) 100 mg capsule Take 1 capsule by mouth twice daily as needed for Constipation. - atorvastatin (LIPITOR) 40 mg tablet Take 1 tablet by mouth once daily. For cholesterol. (From [facility]) - famotidine (PEPCID) 40 mg tablet Take 1 tablet by mouth twice daily. - amLODIPine (NORVASC) 10 mg tablet Take 1 tablet by mouth once daily. ([facility] senior mechanical engineer increased dose--Dr. Cruz) - losartan (COZAAR) 100 mg tablet Take 1 tablet by mouth once daily. - Aspirin 81 mg ORAL Tab Take 81 mg by mouth once daily. Problem List As Of Date 11/11/2024 Noted Resolved Disorder of b (more content not included)... Normal [facility] CNOVon 11-05-2024 CNOV Office Visit (RADTWS ) -- SHASHANK ESPINOZA ([id number]) 1945 M Date Time Provider Department 11/05/24 2:15 PM ANDREA WU During your visit today, we recorded the following information about you: Temperature Pulse Blood pressure 98.7 degrees 67/minute 119/74 Suly Cerrato, RN 11/05/2024 2:22 PM Signed Radiation Therapy - Nursing Note (OTV) PATIENT NAME: Shashank Espinoza PATIENT November 05, 2024 [facility] FACILITY/LOCATION: [facility] NOTE TYPE: PROSTATE - MALE PELVIS Subjective Data I have trouble holding my pee when I am so full Additional Data Do you want to see a School Librarian? No Status: Patient is male Stress Scale: On a scale of 0 to 10, what number best describes how much distress you have experienced in the past week?(0 being no distress and 10 being extreme distress) 5 Social work notified: Pt denied need to see web content & social media manager at this time. Nursing Assessment Fatigue: increased fatigue over baseline but not altering normal activities Appetite: fair eats at [employer] every day, then snacks thru out day Nutritional Intake: Regular oral intake. Weight Gain/Loss: Not applicable Ambulatory weight history: Last 6 Encounter Wt Readings: Date: Wt: 10/22/2024 78.2 kg (172 lb 6.4 oz) 08/11/2024 75.8 kg (167 lb) 07/30/2024 75 kg (165 lb 5.5 oz) 06/24/2024 74.8 kg (164 lb 12.8 oz) 06/18/2024 74 kg (163 lb 2.3 oz) 04/16/2024 73.9 kg (163 lb) Nausea:None Vomiting: None Bowel Function: loose but not multiple times a day or even every day Erythema/Hyperpigmentation :none Desquamation:none Rash:none Skin Care: Aquaphor Skin Sensation: Within Normal Limits Focused Assessment PROSTATE - MALE PELVIS: Rectal bleeding: No. Rectal pain: No. Bladder function: urgency, frequency. Urinary frequency (D/N): stable/2-3 not a lot of volume, dribbles some. SIGNED by: ALBERT Arceo Daesung, MD 11/05/2024 2:22 PM Signed Radiation Oncology - On Treatment Review (OTR) Note PATIENT NAME: Shashank Espinoza PATIENT DIAGNOSIS: Clinical stage IIC, cT1c, cN0, prostate adenocarcinoma with Wesley score 7 (4+3), grade group 3, PSA 11.54. COURSE: definitive AREA TREATED: Pelvis/prostate/SV CURRENT DOSE: 1750 cGy in 7 fx PLANNED DOSE: 7000 cGy in 28 fx SUBJECTIVE: He has mildly increased urinary frequency but not enough to take medications for. EXAM: KPS: 90 General Appearance: Alert and oriented. No acute distress. IMAGING/LAB RESULTS: None Treatment chart checked: Yes Patient treatment site reviewed and verified:Yes CBCTs reviewed and current:Yes Medications started: Flomax if urinary symptoms worsen. ASSESSMENT/PLAN: Clinically stable. Toxicity within expected parameters. Continue radiation treatment as planned. Andrea Wu MD Allergies As of Date: 11/05/2024 Noted Allergy Reaction PRILOSEC (OMEPRAZOLE MAGNESIUM) 09/27/2010 14 - Other: See Comments Comments: GI upset Date Reviewed: 11/05/2024 Reviewed by: Suly Cerrato RN - Fully Assessed Reason for Visit: Radiotherapy On-treatment Visit [1722] Primary Visit Diagnosis:Prostate cancer (HCC) [C61] Prescriptions as of 11/05/2024 - clonazePAM (KLONOPIN) 1 mg tablet Take 1 tablet by mouth daily at bedtime. May also take 1 tablet once daily as needed. Do all this for 90 days. Patient should start on November 06, 2024. - levothyroxine (SYNTHROID) 50 mcg tablet Take 1 tablet by mouth once daily. Except take 2 on Sunday ([facility]) - tiotropium-olodaterol (STIOLTO RESPIMAT) 2.5-2.5 mcg/actuation inhaler Inhale 2 Puffs as instructed once daily. - albuterol HFA (PROVENTIL HFA, VENTOLIN HFA) 90 mcg/actuation inhaler Inhale 2 Puffs as instructed every 4 hours as needed. - ipratropium bromide (ATROVENT) 42 mcg (0.06 %) nasal spray Use 2 Sprays in the nose four times daily as needed. - fluticasone (FLONASE) 50 mcg/actuation nasal spray Use 2 Sprays in each nostril once daily as needed. Rinse mouth after use. - traZODone (DESYREL) 100 mg tablet Take 1-2 tablets by mouth daily at bedtime. ([facility]) - psyllium husk (KONSYL SUGAR-FREE) 6 gram/6 gram powd Take 1 Scoop by mouth once daily as needed. - nitroglycerin sublingual (NITROQUICK) 0.4 mg SL tablet Dissolve 1 tablet under the tongue as needed. FOR CHEST PAIN. IF NO RELIEF CALL 911 - docusate sodium (COLACE) 100 mg capsule Take 1 capsule by mouth twice daily as needed for Constipation. - atorvastatin (LIPITOR) 40 mg tablet Take 1 tablet by mouth once daily. For [facility]. ([facility]) - famotidine (PEPCID) 40 mg tablet Take 1 tablet by mouth twice daily. - amLODIPine (NORVASC) 10 mg tablet Take 1 tablet by mouth once daily. 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 Cruz) - losartan (COZAAR) 100 mg tablet Take 1 tablet by mouth once daily. - Aspirin 81 mg ORAL Tab Take 81 mg (more content not included)... Normal [facility] CNOVon 10-29-2024 CNOV Office Visit (RADTWS ) -- KIMBERLYSHASHANK RAMIREZ ([id number]) 1945 M Date Time Provider Department 10/29/24 2:15 PM ANDREA WU During your visit today, we recorded the following information about you: Temperature Pulse Blood pressure 98.6 degrees 69/minute 118/73 Suly Cerrato RN 10/29/2024 2:50 PM Signed Radiation Therapy - Nursing Note (OTV) PATIENT NAME: Shashank Espinoza PATIENT October 29, 2024 [facility] FACILITY/LOCATION: [place] NURSING NOTE TYPE: PROSTATE - MALE PELVIS Subjective Data no complaints Additional Data Do you want to see a School Librarian? No Status: Patient is male Stress Scale: On a scale of 0 to 10, what number best describes how much distress you have experienced in the past week?(0 being no distress and 10 being extreme distress) 5 Social work notified: Pt denied need to see web content & social media manager at this time. Nursing Assessment Fatigue: none Appetite: good Nutritional Intake: Regular oral intake. Weight Gain/Loss: Not applicable Ambulatory weight history: Last 6 Encounter Wt Readings: Date: Wt: 10/22/2024 78.2 kg (172 lb 6.4 oz) 08/11/2024 75.8 kg (167 lb) 07/30/2024 75 kg (165 lb 5.5 oz) 06/24/2024 74.8 kg (164 lb 12.8 oz) 06/18/2024 74 kg (163 lb 2.3 oz) 04/16/2024 73.9 kg (163 lb) Nausea:None Vomiting: None Bowel Function: normal bowel movements Erythema/Hyperpigmentation :none Desquamation:none Rash:none Skin Care: Aquaphor Skin Sensation: Within Normal Limits Focused Assessment PROSTATE - MALE PELVIS: Rectal bleeding: No. Rectal pain: No. Bladder function: no problems. Urinary frequency (D/N): stable/stable. SIGNED by: ALBERT Arceo Daesung, MD 10/29/2024 2:50 PM Signed Radiation Oncology - On Treatment Review (OTR) Note PATIENT NAME: Shashank Espinoza PATIENT DIAGNOSIS: Clinical stage IIC, cT1c, cN0, prostate adenocarcinoma with Juan A score 7 (4+3), grade group 3, PSA 11.54. COURSE: definitive AREA TREATED: Pelvis/prostate/SV CURRENT DOSE: 500 cGy in 2 fx PLANNED DOSE: 7000 cGy in 28 fx SUBJECTIVE: He is doing well without any specific new complaints. EXAM: KPS: 100 General Appearance: Alert and oriented. No acute distress. IMAGING/LAB RESULTS: None Treatment chart checked: Yes Patient treatment site reviewed and verified:Yes CBCTs reviewed and current:Yes Medications started: None ASSESSMENT/PLAN: Clinically stable. No signs of toxicity. Continue radiation treatment as planned. Andrea Wu MD Allergies As of Date: 10/29/2024 Noted Allergy Reaction PRILOSEC (OMEPRAZOLE MAGNESIUM) 09/27/2010 14 - Other: See Comments Comments: GI upset Date Reviewed: 10/29/2024 Reviewed by: Suly Cerrato RN - Fully Assessed Reason for Visit: Radiotherapy On-treatment Visit [1722] Primary Visit Diagnosis:Prostate cancer (HCC) [C61] Prescriptions as of 10/29/2024 - clonazePAM (KLONOPIN) 1 mg tablet Take 1 tablet by mouth daily at bedtime. May also take 1 tablet once daily as needed. Do all this for 90 days. Patient should start on November 06, 2024. - levothyroxine (SYNTHROID) 50 mcg tablet Take 1 tablet by mouth once daily. Except take 2 on Sunday ([facility]) - tiotropium-olodaterol (STIOLTO RESPIMAT) 2.5-2.5 mcg/actuation inhaler Inhale 2 Puffs as instructed once daily. - albuterol HFA (PROVENTIL HFA, VENTOLIN HFA) 90 mcg/actuation inhaler Inhale 2 Puffs as instructed every 4 hours as needed. - ipratropium bromide (ATROVENT) 42 mcg (0.06 %) nasal spray Use 2 Sprays in the nose four times daily as needed. - fluticasone (FLONASE) 50 mcg/actuation nasal spray Use 2 Sprays in each nostril once daily as needed. Rinse mouth after use. - traZODone (DESYREL) 100 mg tablet Take 1-2 tablets by mouth daily at bedtime. ([facility]) - psyllium husk (KONSYL SUGAR-FREE) 6 gram/6 gram powd Take 1 Scoop by mouth once daily as needed. - nitroglycerin sublingual (NITROQUICK) 0.4 mg SL tablet Dissolve 1 tablet under the tongue as needed. FOR CHEST PAIN. IF NO RELIEF CALL 911 - docusate sodium (COLACE) 100 mg capsule Take 1 capsule by mouth twice daily as needed for Constipation. - atorvastatin (LIPITOR) 40 mg tablet Take 1 tablet by mouth once daily. For cholesterol. (From [facility]) - famotidine (PEPCID) 40 mg tablet Take 1 tablet by mouth twice daily. - amLODIPine (NORVASC) 10 mg tablet Take 1 tablet by mouth once daily. ([facility] senior mechanical engineer increased dose--Dr. Cruz) - losartan (COZAAR) 100 mg tablet Take 1 tablet by mouth once daily. - Aspirin 81 mg ORAL Tab Take 81 mg by mouth once daily. Problem List As Of Date 10/29/2024 Noted Resolved Disorder of bone and cartilage [M89.9, M94.9] Depression [F32.A] Anxiety [F41.9] Chronic hepatitis C without mention of hepatic *05/08/2005 02/16/2016 ALOPECIA [704.0] 05/08/2005 INT HEMORRHOID W/O COMPL [K64.8] 1 (more content not included)... Normal [facility] CNOVon 10-22-2024 CNOV Office Visit (INTMWS ) -- SHASHANK ESPINOZA ([id number]) 1945 M Date Time Provider Department 10/22/24 1:40 PM YUVAL DORANTES INTMWS During your visit today, we recorded the following information about you: Pulse Respiration Blood pressure Weight 70/minute 14/minute 116/60 78.2 kg Yuval Dorantes MD 10/22/2024 2:51 PM Signed This note was created using [employer]. Subjective Shashank Espinoza is a 79 year old male. Patient presents with: 4 month f/up: Just dx prostate cancer Shashank is a 79-year-old male with a history of prostate cancer and COPD, presenting for a 4-month follow-up. Shashank was recently diagnosed with prostate cancer and is currently under the care of Dr. Wu at [facility]. He reports not receiving any test results related to his prostate cancer, including a recent PET scan and biopsy, as he does not have access to Giving Assistant and prefers printed copies. He also inquires about his PSA levels, noting that they started at 5 and have increased to 11.5. He requests copies of his PET scan, biopsy results, and PSA levels. Shashank underwent a simulation test this past Sunday, which involved drinking a large amount of water and making a bowel movement. He mentions that a tattoo was placed around his prostate during this procedure. He is scheduled to start radiation treatment on , the , and expresses concerns about the treatment process, including the requirement to drink 40 ounces of water before each session. He also inquires about the necessity of surgery, given his age and COPD, and mentions that he has three nodules on his lungs. Shashank reports a lack of support and difficulty remembering information provided by his doctors. He also asks about dietary recommendations, specifically regarding protein intake, and mentions that he does not cook and relies on restaurants for his meals. He is currently taking clonazepam and requests a refill. 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 MRA 07/07/11 Anxiety state, unspecified Ascending aorta dilatation 10/14/2015 CT Chest 4.5X3.96cm BENIGN NEOPLASM LG BOWEL 05/08/2005 colon polyps Benign prostatic hyperplasia with urinary retention CAD (coronary artery disease) 08/22/2010 s/p drug eluting stent placement (2) Carotid artery occlusion, right MRI 07/04/11; MRA 07/07/11 Centrilobular emphysema (HCC) 09/25/2022 Depressive disorder, not elsewhere classified Disorder of bone and cartilage, unspecified Elevated prostate specific antigen (PSA) Essential hypertension, benign GASTROINTEST HEMORR NOS 05/08/2005 Hearing loss in left ear Dr. 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 albuterol HFA (PROVENTIL HFA, VENTOLIN HFA) 90 mcg/actuation inhaler Inhale 2 Puffs as instructed every 4 hours as needed. fluticasone (FLONASE) 50 mcg/actuation nasal spray Use 2 Sprays in each nostril once daily as needed. Rinse mouth after use. traZODone (DESYREL) 100 mg tablet Take 1-2 tablets by mouth daily at bedtime. ([facility]) psyllium husk (KONSYL SUGAR-FREE) 6 gram/6 gram powd Take 1 Scoop by mouth once daily as needed. docusate sodium (COLACE) 100 mg capsule Take 1 capsule by mouth twice daily as needed for Constipation. atorvastatin (LIPITOR) 40 mg tablet Take 1 tablet by mouth once daily. For cholesterol. (From [facility]) famotidine (PEPCID) 40 mg tablet Take 1 tablet by mouth twice daily. amLODIPine (NORVASC) 10 mg tablet Take 1 tablet by mouth once daily. 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 Cruz) Aspirin 81 mg ORAL Tab Take 81 mg by mouth once daily. [START ON 11/06/2024] clonazePAM (KLONOPIN) 1 mg tablet Take 1 tablet by mouth daily at bedtime. May also take 1 tablet once daily as needed. Do all this for 90 days. Patient should start on November 06, 2024. levothyroxine (SYNTHROID) 50 mcg tablet Take 1 tablet by mouth once daily. Except take 2 on Sunday ([facility]) ipratropium bromide (ATROVENT) 42 mcg (0.06 %) nasal spray Use 2 Sprays in the nose four times daily as needed. (Patient not taking: Reported on 10/22/2024) nitroglycerin sublingual (NITROQUICK) 0.4 mg SL tablet Dissolve 1 tablet under the tongue as needed. FOR CHEST PAIN. IF NO RELIEF CALL 911 losartan (COZAAR) 100 mg tablet Take 1 tablet by mouth once daily. No curre (more content not included)... [facility] -- SHASHANK ESPINOZA ([id number]) 1945 M Date Time Provider Department 10/20/24 12:30 [facility] During your visit today, we recorded the following information about you: Kary Mcclellan, ALBERT 10/20/2024 1:28 PM Signed Radiation Therapy - Patient Education Note PATIENT NAME: Shashank Espinoza PATIENT October 20, 2024 [facility] FACILITY/LOCATION: [place] READINESS TO LEARN Cognitive Ability: Alert and oriented Motivation to learn: Eager Interested Family Support: High - Very involved in pt care Instruction provide to: Patient and Family member Patient learns best by: Multiple Methods Factors effecting learning: Emotional Factors: Anxious Overwhelmed Physical limitations effecting learning: None LEARNING RESPONSE Diagnosis: Pt simulated today for radiation therapy to prostate. Education Topic/Teaching Points: Radiation therapy, Side effects, and OTV: Method of instruction: Teach Back skin care Individual instruction Written instruction/Handouts Verbal instruction Patient /Family response: Patient and family verbalized understanding of radiation treatments, side effects, OTV, and transportation. Follow-up plan: Patient instructed to call with any further issues Re-teach - Using different method Reinforce - Repeat previous content Contact information given. Supplemental material: Informational handouts on Department phone list, Bladder function, Diarrhea, Fatigue, and [place] instructions, XRT sheet and Aquaphor handout. Referral (recommendation): None, Pt denied need for social work, van service, and cst. Patient has an Onbody or Implanted device: No Signed by: Kary Mcclellan RN Allergies As of Date: 10/20/2024 Noted Allergy Reaction PRILOSEC (OMEPRAZOLE MAGNESIUM) 09/27/2010 14 - Other: See Comments Comments: GI upset Date Reviewed: 10/15/2024 Reviewed by: Suly Cerrato RN - Fully Assessed Primary Visit Diagnosis:Prostate cancer (HCC) [C61] Prescriptions as of 10/20/2024 - levothyroxine (SYNTHROID) 50 mcg tablet Take 1 tablet by mouth once daily. Except take 2 on Sunday ([facility]) - clonazePAM (KLONOPIN) 1 mg tablet Take 1 tablet by mouth daily at bedtime. May also take 1 tablet once daily as needed. Do all this for 90 days. Patient should start on July 18, 2024. - tiotropium-olodaterol (STIOLTO RESPIMAT) 2.5-2.5 mcg/actuation inhaler Inhale 2 Puffs as instructed once daily. - albuterol HFA (PROVENTIL HFA, VENTOLIN HFA) 90 mcg/actuation inhaler Inhale 2 Puffs as instructed every 4 hours as needed. - ipratropium bromide (ATROVENT) 42 mcg (0.06 %) nasal spray Use 2 Sprays in the nose four times daily as needed. - fluticasone (FLONASE) 50 mcg/actuation nasal spray Use 2 Sprays in each nostril once daily as needed. Rinse mouth after use. - traZODone (DESYREL) 100 mg tablet Take 1-2 tablets by mouth daily at bedtime. ([facility]) - psyllium husk (KONSYL SUGAR-FREE) 6 gram/6 gram powd Take 1 Scoop by mouth once daily as needed. - nitroglycerin sublingual (NITROQUICK) 0.4 mg SL tablet Dissolve 1 tablet under the tongue as needed. FOR CHEST PAIN. IF NO RELIEF CALL 911 - docusate sodium (COLACE) 100 mg capsule Take 1 capsule by mouth twice daily as needed for Constipation. - atorvastatin (LIPITOR) 40 mg tablet Take 1 tablet by mouth once daily. For cholesterol. (From [facility]) - famotidine (PEPCID) 40 mg tablet Take 1 tablet by mouth twice daily. - amLODIPine (NORVASC) 10 mg tablet Take 1 tablet by mouth once daily. ([place] [facility] senior mechanical engineer increased dose--Dr. Cruz) - losartan (COZAAR) 100 mg tablet Take 1 tablet by mouth once daily. - Aspirin 81 mg ORAL Tab Take 81 mg by mouth once daily. Problem List As Of Date 10/20/2024 Noted Resolved Disorder of bone and cartilage [M89.9, M94.9] Depression [F32.A] Anxiety [F41.9] Chronic hepatitis C without mention of hepatic *05/08/2005 02/16/2016 ALOPECIA [704.0] 05/08/2005 INT HEMORRHOID W/O COMPL [K64.8] 05/08/2005 COLON POLYP [D12.6] 05/08/2005 ERECTILE DYSFUNCTION [F52.9] 05/08/2005 Hemorrhage of gastrointestinal tract, unspecifi*05/08/2005 02/17/2014 MALAISE AND FATIGUE NEC [R53.81, R53.83] 07/21/2005 PERS HX TOBACCO USE [Z87.891] 12/26/2005 Epidermal Cyst [L72.0] 07/13/2006 BENIGN MICHAEL SKIN FACE NEC [D23.30] 07/13/2006 XANTHALASMA///MIXED HYPERLIPIDEMIA [E78.2] 07/13/2006 XANTHELASMA [H02.60] 07/13/2006 ACNE NEC [L70.8] 07/13/2006 Open wound(s) (multiple) of unspecified site(s)*07/25/2006 09/19/2017 UNCERTAIN BEHAV NEOPL SKIN [D48.5] 08/24/2006 BENIGN MICHAEL SKIN EYELID [D23.10] 08/31/2006 MYALGIA AND MYOSITIS NOS [TDA4439] 04/12/2007 ADJUSTMENT DISORDER WITH DEPRESSED MOOD [F43.21]12/13/2007 VIRAL WARTS NOS [B07.9] 10/20/2008 INSOMNIA NOS [G47.00] 11/03/2008 CHRONIC PAIN NEC [G89.29] 11/03/2008 Fatty liver [K76.0] 08/16/2009 08 (more content not included)... Normal [facility] CNOVon 10-20-2024 CNOV Office Visit (RADTWS ) -- SHASHANK ESPINOZA ([id number]) 1945 [place] Date Time Provider Department 10/20/24 1:00 PM ANDREA WU RADTWS During your visit today, we recorded the following information about you: Andrea Wu MD 10/23/2024 11:12 AM Signed He has decided to pursue radiation treatment. As he is in unfavorable intermediate risk group, I told him and his familay that combined short-term hormonal therapy can improve outcome. However, he has underlying heart disease and he is reluctant to take risks of additional side effects. He wishes to pursue radiation treatment alone. I explained the rationale, benefits, alternative management options and potential complications of radiation treatment to the patient and he understands and agrees to proceed. It was explained and understood that other personnel such as radiation therapists, solid surface fabricator, and physicists will participate in planning and delivery of radiation treatment. Permanent tattoo arroyo will be placed to aid with positioning for daily treatment and the patient consented. Patient will have a simulation procedure today. Allergies As of Date: 10/20/2024 Noted Allergy Reaction PRILOSEC (OMEPRAZOLE MAGNESIUM) 09/27/2010 14 - Other: See Comments Comments: GI upset Date Reviewed: 10/15/2024 Reviewed by: Suly Cerrato RN - Fully Assessed Primary Visit Diagnosis:Prostate cancer (HCC) [C61] Prescriptions as of 10/23/2024 - clonazePAM (KLONOPIN) 1 mg tablet Take 1 tablet by mouth daily at bedtime. May also take 1 tablet once daily as needed. Do all this for 90 days. Patient should start on November 06, 2024. - levothyroxine (SYNTHROID) 50 mcg tablet Take 1 tablet by mouth once daily. Except take 2 on Sunday ([facility]) - tiotropium-olodaterol (STIOLTO RESPIMAT) 2.5-2.5 mcg/actuation inhaler Inhale 2 Puffs as instructed once daily. - albuterol HFA (PROVENTIL HFA, VENTOLIN HFA) 90 mcg/actuation inhaler Inhale 2 Puffs as instructed every 4 hours as needed. - ipratropium bromide (ATROVENT) 42 mcg (0.06 %) nasal spray Use 2 Sprays in the nose four times daily as needed. - fluticasone (FLONASE) 50 mcg/actuation nasal spray Use 2 Sprays in each nostril once daily as needed. Rinse mouth after use. - traZODone (DESYREL) 100 mg tablet Take 1-2 tablets by mouth daily at bedtime. ([facility]) - psyllium husk (KONSYL SUGAR-FREE) 6 gram/6 gram powd Take 1 Scoop by mouth once daily as needed. - nitroglycerin sublingual (NITROQUICK) 0.4 mg SL tablet Dissolve 1 tablet under the tongue as needed. FOR CHEST PAIN. IF NO RELIEF CALL 911 - docusate sodium (COLACE) 100 mg capsule Take 1 capsule by mouth twice daily as needed for Constipation. - atorvastatin (LIPITOR) 40 mg tablet Take 1 tablet by mouth once daily. For cholesterol. (From [facility]) - famotidine (PEPCID) 40 mg tablet Take 1 tablet by mouth twice daily. - amLODIPine (NORVASC) 10 mg tablet Take 1 tablet by mouth once daily. ([place] [employer] senior mechanical engineer increased dose--Dr. Cruz) - losartan (COZAAR) 100 mg tablet Take 1 tablet by mouth once daily. - Aspirin 81 mg ORAL Tab Take 81 mg by mouth once daily. Problem List As Of Date 10/20/2024 Noted Resolved Disorder of bone and cartilage [M89.9, M94.9] Depression [F32.A] Anxiety [F41.9] Chronic hepatitis C without mention of hepatic *05/08/2005 02/16/2016 ALOPECIA [704.0] 05/08/2005 INT HEMORRHOID W/O COMPL [K64.8] 05/08/2005 COLON POLYP [D12.6] 05/08/2005 ERECTILE DYSFUNCTION [F52.9] 05/08/2005 Hemorrhage of gastrointestinal tract, unspecifi*05/08/2005 02/17/2014 MALAISE AND FATIGUE NEC [R53.81, R53.83] 07/21/2005 PERS HX TOBACCO USE [Z87.891] 12/26/2005 Epidermal Cyst [L72.0] 07/13/2006 BENIGN MICHAEL SKIN FACE NEC [D23.30] 07/13/2006 XANTHALASMA///MIXED HYPERLIPIDEMIA [E78.2] 07/13/2006 XANTHELASMA [H02.60] 07/13/2006 ACNE NEC [L70.8] 07/13/2006 Open wound(s) (multiple) of unspecified site(s)*07/25/2006 09/19/2017 UNCERTAIN BEHAV NEOPL SKIN [D48.5] 08/24/2006 BENIGN MICHAEL SKIN EYELID [D23.10] 08/31/2006 MYALGIA AND MYOSITIS NOS [[id number]] 04/12/2007 ADJUSTMENT DISORDER WITH DEPRESSED MOOD [F43.21]12/13/2007 VIRAL WARTS NOS [B07.9] 10/20/2008 INSOMNIA NOS [G47.00] 11/03/2008 CHRONIC PAIN NEC [G89.29] 11/03/2008 Fatty liver [K76.0] 08/16/2009 02/17/2014 SUMMARY [V999.95] 08/30/2010 Chest pain [R07.9] 08/30/2010 Melena [K92.1] 08/30/2010 HLD (hyperlipidemia) [E78.5] 08/30/2010 Hypertension goal BP (blood pressure) < 140/90 *08/30/2010 CAD (coronary artery disease), [place] coronary *08/30/2010 S/P coronary artery stent placement [Z95.5] 08/30/2010 Acute gastritis without mention of hemorrhage [*10/10/2010 02/16/2016 Duodenitis without mention of hemorrhage [K29.8*10/10/2010 Sinus bradycardia [R00.1] 04/10/2011 Carotid artery occlusion, 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] History of aneurysm [Z86.79] Hypothyroidism [E03.9] Chronic (more content not included)... Normal [facility] CNOVon 10-15-2024 CNOV Office Visit (RADTWS ) -- OLGASHASHANK Juan ([id number]) 1945 M Date Time Provider Department 10/15/24 10:30 AM ANDREA WU RADTWS During your visit today, we recorded the following information about you: Suly Cerrato, RN 10/16/2024 1:31 PM Signed Radiation Therapy - Nursing Note (Consult) PATIENT NAME: Shashank Espinoza PATIENT October 15, 2024 [facility] FACILITY/LOCATION: [place] Chief Complaint: prostate cancer Reason for visit: Consult. Referring physician: Internal provider Dr Rocha Subjective Data: Prostate cancer Additional Data Do you want to see a School Librarian? No Are you interested in information about fertility? No Status: Patient is male Stress Scale: On a scale of 0 to 10, what number best describes how much distress you have experienced in the past week?(0 being no distress and 10 being extreme distress) 8 Social work notified: Pt denied need to see web content & social media manager at this time. SIGNED by: ALBERT Arceo Daesung, MD 10/16/2024 1:31 PM Signed Radiation Oncology - New Patient/Consult Note PATIENT NAME: Shashank Espinoza PATIENT REQUESTING PROVIDER: Dr. An Henley Jr DIAGNOSIS: Clinical stage IIC, cT1c, cN0, prostate adenocarcinoma with Juan A score 7 (4+3), grade group 3, PSA 11.54. HPI: 79 year old male who presents with above diagnosis, for an opinion regarding the role of radiation therapy in the management of the patient's disease. Final recommendations will be communicated back to the requesting physician by way of the shared medical record, or letter to requesting physician via US mail. 79 year old man with rising PSA to 11.54 on 06/18/24 from 8.32 on 11/22/23 and 5.84 two years ago. He underwent TRUS on 09/15/24 and the gland is moderately enlarged, measuring 50cc. There is no focal lesion within the pereferal zone of the prostate gland. Prostate biopsy and pathology showed as following: FINAL DIAGNOSIS A. Prostate, right base, biopsy: - Prostatic adenocarcinoma with intraductal features, Juan A score 4 +3 = 7 (grade group 3) involving 90% of 1 core (12 mm tumor length). - Large cribriform pattern 4. B. Prostate, right mid, biopsy: - High-grade prostatic intraepithelial neoplasia. C. Prostate, right apex, biopsy: - . Benign prostatic tissue. D. Prostate, right lateral base, biopsy: - Prostatic adenocarcinoma Wesley score 4 +3 = 7 (grade group 3) involving 90% of 1 core (14 mm tumor length). - Large cribriform pattern 4. E. Prostate, right lateral mid, biopsy: - Prostatic adenocarcinoma Juan A score 3+4 = 7 (grade group 2) involving 45% of 1 core (7 mm tumor length). - High-grade prostatic intraepithelial neoplasia. F. Prostate, right lateral apex, biopsy: - Benign prostatic tissue. G. Prostate, left base, biopsy: - Benign prostatic tissue. H. Prostate, left mid, biopsy: - Benign prostatic tissue. I. Prostate, left apex, biopsy: - Benign prostatic tissue. J. Prostate, left lateral base, biopsy: - Benign prostatic tissue. K. Prostate, left lateral mid, biopsy: - Benign prostatic tissue. L. Prostate, left lateral apex, biopsy: - Benign prostatic tissue. Prostate Cancer Biopsy Summary Number of cores examined: 12 Number of cores positive: 3 Highest Grade Group: 3 Highest % of core involvement: 90 % Cribriform pattern 4: Present Intraductal carcinoma: Present PET/CT scan on 10/06/24 showed tracer avid posterior mid right peripheral zone lesion and no other PSMA expressing metastasis. ALLERGIES Allergen Reactions Prilosec [Omeprazol* Other: See Comments GI upset Current Outpatient Medications on File Prior to Visit Medication Sig levothyroxine (SYNTHROID) 50 mcg tablet Take 1 tablet by mouth once daily. Except take 2 on Sunday ([facility]) clonazePAM (KLONOPIN) 1 mg tablet Take 1 tablet by mouth daily at bedtime. May also take 1 tablet once daily as needed. Do all this for 90 days. Patient should start on July 18, 2024. tiotropium-olodaterol (STIOLTO RESPIMAT) 2.5-2.5 mcg/actuation inhaler Inhale 2 Puffs as instructed once daily. albuterol HFA (PROVENTIL HFA, VENTOLIN HFA) 90 mcg/actuation inhaler Inhale 2 Puffs as instructed every 4 hours as needed. ipratropium bromide (ATROVENT) 42 mcg (0.06 %) nasal spray Use 2 Sprays in the nose four times daily as needed. fluticasone (FLONASE) 50 mcg/actuation nasal spray Use 2 Sprays in each nostril once daily as needed. Rinse mouth after use. traZODone (DESYREL) 100 mg tablet Take 1-2 tablets by mouth daily at bedtime. ([facility]) psyllium husk (KONSYL SUGAR-FREE) 6 gram/6 gram powd Take 1 Scoop by mouth once daily as needed. nitroglycerin sublingual (NITROQUICK) 0.4 mg SL tablet Dissolve 1 tablet under the tongue as needed. FOR CHEST PAIN. IF NO RELIEF CALL 911 docusate sodium (COLACE) 100 mg capsule Take 1 capsul (more content not included)... Normal [facility] Kishor 10-15-2024 CNPN Telephone (RADTWS) -- SHASHANK ESPINOZA ([id number]) 1945 M Date Time Provider Department 10/15/24 ANDREA WU During your visit today, we recorded the following information about you: Suly Cerrato, ALBERT 10/15/2024 12:[address] Wu would like us to call patient to see what he decided to do about radiation treatment. Pt asked if we would call him at 10 tomorrow 10/16 on his cell phone. Kary Mcclellan RN 10/16/2024 10:35 AM Signed I called pt and he has decided to proceed with radiation. Dr Wu aware. Allergies As of Date: 10/15/2024 Noted Allergy Reaction PRILOSEC (OMEPRAZOLE MAGNESIUM) 09/27/2010 14 - Other: See Comments Comments: GI upset Date Reviewed: 10/15/2024 Reviewed by: Suly Cerrato, RN - Fully Assessed Reason for Visit: Patient Update [1234] Prescriptions as of 10/16/2024 - levothyroxine (SYNTHROID) 50 mcg tablet Take 1 tablet by mouth once daily. Except take 2 on Sunday ([facility]) - clonazePAM (KLONOPIN) 1 mg tablet Take 1 tablet by mouth daily at bedtime. May also take 1 tablet once daily as needed. Do all this for 90 days. Patient should start on July 18, 2024. - tiotropium-olodaterol (STIOLTO RESPIMAT) 2.5-2.5 mcg/actuation inhaler Inhale 2 Puffs as instructed once daily. - albuterol HFA (PROVENTIL HFA, VENTOLIN HFA) 90 mcg/actuation inhaler Inhale 2 Puffs as instructed every 4 hours as needed. - ipratropium bromide (ATROVENT) 42 mcg (0.06 %) nasal spray Use 2 Sprays in the nose four times daily as needed. - fluticasone (FLONASE) 50 mcg/actuation nasal spray Use 2 Sprays in each nostril once daily as needed. Rinse mouth after use. - traZODone (DESYREL) 100 mg tablet Take 1-2 tablets by mouth daily at bedtime. ([facility]) - psyllium husk (KONSYL SUGAR-FREE) 6 gram/6 gram powd Take 1 Scoop by mouth once daily as needed. - nitroglycerin sublingual (NITROQUICK) 0.4 mg SL tablet Dissolve 1 tablet under the tongue as needed. FOR CHEST PAIN. IF NO RELIEF CALL 911 - docusate sodium (COLACE) 100 mg capsule Take 1 capsule by mouth twice daily as needed for Constipation. - atorvastatin (LIPITOR) 40 mg tablet Take 1 tablet by mouth once daily. For cholesterol. (From [facility]) - famotidine (PEPCID) 40 mg tablet Take 1 tablet by mouth twice daily. - amLODIPine (NORVASC) 10 mg tablet Take 1 tablet by mouth once daily. 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 Cruz) - losartan (COZAAR) 100 mg tablet Take 1 tablet by mouth once daily. - Aspirin 81 mg ORAL Tab Take 81 mg by mouth once daily. Problem List As Of Date 10/15/2024 Noted Resolved Disorder of bone and cartilage [M89.9, M94.9] Depression [F32.A] Anxiety [F41.9] Chronic hepatitis C without mention of hepatic *05/08/2005 02/16/2016 ALOPECIA [704.0] 05/08/2005 INT HEMORRHOID W/O COMPL [K64.8] 05/08/2005 COLON POLYP [D12.6] 05/08/2005 ERECTILE DYSFUNCTION [F52.9] 05/08/2005 Hemorrhage of gastrointestinal tract, unspecifi*05/08/2005 02/17/2014 MALAISE AND FATIGUE NEC [R53.81, R53.83] 07/21/2005 PERS HX TOBACCO USE [Z87.891] 12/26/2005 Epidermal Cyst [L72.0] 07/13/2006 BENIGN MICHAEL SKIN FACE NEC [D23.30] 07/13/2006 XANTHALASMA///MIXED HYPERLIPIDEMIA [E78.2] 07/13/2006 XANTHELASMA [H02.60] 07/13/2006 ACNE NEC [L70.8] 07/13/2006 Open wound(s) (multiple) of unspecified site(s)*07/25/2006 09/19/2017 UNCERTAIN BEHAV NEOPL SKIN [D48.5] 08/24/2006 BENIGN MICHAEL SKIN EYELID [D23.10] 08/31/2006 MYALGIA AND MYOSITIS NOS [[id number]] 04/12/2007 ADJUSTMENT DISORDER WITH DEPRESSED MOOD [F43.21]12/13/2007 VIRAL WARTS NOS [B07.9] 10/20/2008 INSOMNIA NOS [G47.00] 11/03/2008 CHRONIC PAIN NEC [G89.29] 11/03/2008 Fatty liver [K76.0] 08/16/2009 02/17/2014 SUMMARY [V999.95] 08/30/2010 Chest pain [R07.9] 08/30/2010 Melena [K92.1] 08/30/2010 HLD (hyperlipidemia) [E78.5] 08/30/2010 Hypertension goal BP (blood pressure) < 140/90 *08/30/2010 CAD (coronary artery disease), [place] coronary *08/30/2010 S/P coronary artery stent placement [Z95.5] 08/30/2010 Acute gastritis without mention of hemorrhage [*10/10/2010 02/16/2016 Duodenitis without mention of hemorrhage [K29.8*10/10/2010 Sinus bradycardia [R00.1] 04/10/2011 Carotid artery occlusion, 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] History of aneurysm [Z86.79] Hypothyroidism [E03.9] Chronic constipation [K59.09] 10/22/2012 Hepatitis C, chronic (HCC) [B18.2] 11/18/2014 10/25/2015 Encounter for screening colonoscopy [Z12.11] 06/17/2015 Epigastric pain [R10.13] 06/17/2015 02/16/2016 Hyperlipidemia [E78.5] 10/05/2015 History of hepatitis C [Z86.19] 10/25/2015 02/16/2016 Burning sensation of toes [R20.8] 09/19/2017 Perianal wart [A63.0] 12/02/2020 Centrilobular emphysema (HCC) [J43.2] 09/25/2022 Prostate cancer (HCC) [C61] 10/01/2024 Elevated prostate specific antigen (PSA) [R97.2*10/01/2024 Encounter Status:Closed by KARY MCCLELLAN (more content not included)... Normal [facility] PET/CT PROSTATE WBon 09-14 [place] PET/CT PROSTATE WB * * *Final Report* * * DATE OF EXAM: Oct 06 2024 12:09PM MDP 0093 - NM PET/CT PROSTATE WB / PROCEDURE REASON: W30-Dqokqtaw cancer (HCC) * * * * Physician Interpretation * * * * EXAMINATION: PROSTATE-SPECIFIC MEMBRANE ANTIGEN PET-CT CLINICAL HISTORY: 79-year-old male with prostate cancer. * Prostate Cancer Grade: Grade Group 3 (Juan A score 4 + 3) * PSA: 11.54 ng/mL 06/18/2024 EXAM CATEGORY: Initial treatment strategy. TECHNIQUE: Radiopharmaceutical was administered intravenously followed later on by PET imaging from the skull vertex to thighs. Free breathing, low dose CT of the same body region was acquired without IV contrast for attenuation correction and anatomic localization. Unenhanced imaging is limited for the evaluation of some pathology and the acquired CT was not designed to produce diagnostic CT scan quality. Physiologic/non-pathologic uptake in some body regions could confound or obscure some pathology. * CT Dose-Length Product (DLP): 298 mGy*cm * CT Dose Reduction Employed: Yes * Injection site: Left Forearm-Antecubital * Injected activity: 9.3 mCi * Uptake Time: 56 minutes * Radiopharmaceutical: F-18 PSMA (Posluma) COMPARISON: No previous PSMA PET/CT available CORRELATION: CT chest 07/30/2024 RESULT: REFERENCES: Uptake by the injected radiopharmaceutical serves as a surrogate marker for prostate-specific membrane antigen (PSMA) expression. All reported standardized uptake values represent maximum SUV (SUVmax) per body weight, unless otherwise specified. SUV Reference Values: * Background Salivary Gland: SUVmax 25.0 * Blood Pool (Descending Aorta): SUVmax 2.7 * Background Liver: SUVmax 8.7 Localizer Images: No additional findings. HEAD AND NECK: Head: No radiotracer avid lesion or mass effect in the intracranial compartment. Aerodigestive Tract: No radiotracer avid lesion. Lymph Nodes: No radiotracer avid lymphadenopathy. Neck Soft Tissues: No radiotracer avid thyroid nodule. CHEST: Lungs and Pleura: No radiotracer avid mass, nodule, or consolidation. No pleural effusion. Lymph Nodes: No radiotracer avid lymphadenopathy. Mediastinum: No radiotracer avid mass. Cardiovascular: Blood pool activity. No pericardial effusion. Normal heart size. Coronary artery calcifications. Chest Wall: No radiotracer avid soft tissue lesion. ABDOMEN AND PELVIS: Hepatobiliary: No radiotracer avid lesion. No measurable mass. Spleen: No radiotracer avid lesion. No splenomegaly. Pancreas: No radiotracer avid lesion. Adrenals: No radiotracer avid nodule. Urinary Tract: Physiologic radiotracer excretion in the urinary tract. No hydronephrosis. GI Tract: No radiotracer avid lesion. No bowel dilation. Peritoneum: No radiotracer avid lesion. No ascites. Lymph Nodes: * Abdomen (including common iliac): No radiotracer avid lymphadenopathy. * Pelvis (below common iliac): No radiotracer avid lymphadenopathy. Vasculature: Blood pool activity. Abdominal aortic atherosclerotic calcifications without aneurysm. Prostate and Seminal Vesicles: Tracer avid posterior mid right peripheral zone lesion with SUV max 10.4. Pelvis Soft Tissues: No radiotracer avid lesion. MUSCULOSKELETAL: Bones: No radiotracer avid lesion. No lytic or sclerotic lesion. Degenerative changes. Soft Tissues: No radiotracer avid lesion. IMPRESSION: PROSTATE: * Tracer avid posterior mid right peripheral zone lesion. JUSTIN DISEASE: * No PSMA expressing pelvic lymphadenopathy. METASTATIC DISEASE: * No PSMA expressing distant metastases. Rib Matcher And Fitter: HORACIO Transcribe Date/Time: Oct 06 2024 10:43P Dictated by : ANGUS GALO MD This examination was interpreted and the report reviewed and electronically signed by: ANGUS GALO MD on Oct 06 2024 10:53PM EST [id number] Normal [facility] PET+CT Guidance for localiza tion of tumor of Whole body-- W [id number] Carli 10-06-2024 IMPRESSION: PROSTATE: * Tracer avid posterior mid right peripheral zone lesion. JUSTIN DISEASE: * No PSMA expressing pelvic lymphadenopathy. METASTATIC DISEASE: * No PSMA expressing distant metastases. Rib Matcher And Fitter: HORACIO Transcribe Date/Time: Oct 06 2024 10:43P Dictated by : ANGUS GALO MD This examination was interpreted and the report reviewed and electronically signed by: ANGUS GALO MD on Oct 06 2024 10:53PM [facility] * * *Final Report* * * DATE OF EXAM: Oct 06 2024 12:09PM MDP 0093 - NM PET/CT PROSTATE WB / PROCEDURE REASON: V43-Gkdjbxhe cancer (HCC) * * * * Physician Interpretation * * * * EXAMINATION: PROSTATE-SPECIFIC MEMBRANE ANTIGEN PET-CT CLINICAL HISTORY: 79-year-old male with prostate cancer. * Prostate Cancer Grade: Grade Group 3 (Juan A score 4 + 3) * PSA: 11.54 ng/mL 06/18/2024 EXAM CATEGORY: Initial treatment strategy. TECHNIQUE: Radiopharmaceutical was administered intravenously followed later on by PET imaging from the skull vertex to thighs. Free breathing, low dose CT of the same body region was acquired without IV contrast for attenuation correction and anatomic localization. Unenhanced imaging is limited for the evaluation of some pathology and the acquired CT was not designed to produce diagnostic CT scan quality. Physiologic/non-pathologic uptake in some body regions could confound or obscure some pathology. * CT Dose-Length Product (DLP): 298 mGy*cm * CT Dose Reduction Employed: Yes * Injection site: Left Forearm-Antecubital * Injected activity: 9.3 mCi * Uptake Time: 56 minutes * Radiopharmaceutical: F-18 PSMA (Posluma) COMPARISON: No previous PSMA PET/CT available CORRELATION: CT chest 07/30/2024 RESULT: REFERENCES: Uptake by the injected radiopharmaceutical serves as a surrogate marker for prostate-specific membrane antigen (PSMA) expression. All reported standardized uptake values represent maximum SUV (SUVmax) per body weight, unless otherwise specified. SUV Reference Values: * Background Salivary Gland: SUVmax 25.0 * Blood Pool (Descending Aorta): SUVmax 2.7 * Background Liver: SUVmax 8.7 Localizer Images: No additional findings. HEAD AND NECK: Head: No radiotracer avid lesion or mass effect in the intracranial compartment. Aerodigestive Tract: No radiotracer avid lesion. Lymph Nodes: No radiotracer avid lymphadenopathy. Neck Soft Tissues: No radiotracer avid thyroid nodule. CHEST: Lungs & Pleura: No radiotracer avid mass, nodule, or consolidation. No pleural effusion. Lymph Nodes: No radiotracer avid lymphadenopathy. Mediastinum: No radiotracer avid mass. Cardiovascular: Blood pool activity. No pericardial effusion. Normal heart size. Coronary artery calcifications. Chest Wall: No radiotracer avid soft tissue lesion. ABDOMEN AND PELVIS: Hepatobiliary: No radiotracer avid lesion. No measurable mass. Spleen: No radiotracer avid lesion. No splenomegaly. Pancreas: No radiotracer avid lesion. Adrenals: No radiotracer avid nodule. Urinary Tract: Physiologic radiotracer excretion in the urinary tract. No hydronephrosis. GI Tract: No radiotracer avid lesion. No bowel dilation. Peritoneum: No radiotracer avid lesion. No ascites. Lymph Nodes: * Abdomen (including common iliac): No radiotracer avid lymphadenopathy. * Pelvis (below common iliac): No radiotracer avid lymphadenopathy. Vasculature: Blood pool activity. Abdominal aortic atherosclerotic calcifications without aneurysm. Prostate & Seminal Vesicles: Tracer avid posterior mid right peripheral zone lesion with SUV max 10.4. Pelvis Soft Tissues: No radiotracer avid lesion. MUSCULOSKELETAL: Bones: No radiotracer avid lesion. No lytic or sclerotic lesion. Degenerative changes. Soft Tissues: No radiotracer avid lesion. [place] [facility] Provider, [facility] - 10/06/2024 * * *Final Report* * * DATE OF EXAM: Oct 06 2024 12:09PM MDP 0093 - [place] PET/CT PROSTATE WB / PROCEDURE REASON: C81-Aaksyvgy cancer (HCC) * * * * Physician Interpretation * * * * EXAMINATION: PROSTATE-SPECIFIC MEMBRANE ANTIGEN PET-CT CLINICAL HISTORY: 79-year-old male with prostate cancer. * Prostate Cancer Grade: Grade Group 3 (Juan A score 4 + 3) * PSA: 11.54 ng/mL 06/18/2024 EXAM CATEGORY: Initial treatment strategy. TECHNIQUE: Radiopharmaceutical was administered intravenously followed later on by PET imaging from the skull vertex to thighs. Free breathing, low dose CT of the same body region was acquired without IV contrast for attenuation correction and anatomic localization. Unenhanced imaging is limited for the evaluation of some pathology and the acquired CT was not designed to produce diagnostic CT scan quality. Physiologic/non-pathologic uptake in some body regions could confound or obscure some pathology. * CT Dose-Length Product (DLP): 298 mGy*cm * CT Dose Reduction Employed: Yes * Injection site: Left Forearm-Antecubital * Injected activity: 9.3 mCi * Uptake Time: 56 minutes * Radiopharmaceutical: F-18 PSMA (Posluma) COMPARISON: No previous PSMA PET/CT available CORRELATION: CT chest 07/30/2024 RESULT: REFERENCES: Uptake by the injected radiopharmaceutical serves as a surrogate marker for prostate-specific membrane antigen (PSMA) expression. All reported standardized uptake values represent maximum SUV (SUVmax) per body weight, unless otherwise specified. SUV Reference Values: * Background Salivary Gland: SUVmax 25.0 * Blood Pool (Descending Aorta): SUVmax 2.7 * Background Liver: SUVmax 8.7 Localizer Images: No additional findings. HEAD AND NECK: Head: No radiotracer avid lesion or mass effect in the intracranial compartment. Aerodigestive Tract: No radiotracer avid lesion. Lymph Nodes: No radiotracer avid lymphadenopathy. Neck Soft Tissues: No radiotracer avid thyroid nodule. CHEST: Lungs & Pleura: No radiotracer avid mass, nodule, or consolidation. No pleural effusion. Lymph Nodes: No radiotracer avid lymphadenopathy. Mediastinum: No radiotracer avid mass. Cardiovascular: Blood pool activity. No pericardial effusion. Normal heart size. Coronary artery calcifications. Chest Wall: No radiotracer avid soft tissue lesion. ABDOMEN AND PELVIS: Hepatobiliary: No radiotracer avid lesion. No measurable mass. Spleen: No radiotracer avid lesion. No splenomegaly. Pancreas: No radiotracer avid lesion. Adrenals: No radiotracer avid nodule. Urinary Tract: Physiologic radiotracer excretion in the urinary tract. No hydronephrosis. GI Tract: No radiotracer avid lesion. No bowel dilation. Peritoneum: No radiotracer avid lesion. No ascites. Lymph Nodes: * Abdomen (including common iliac): No radiotracer avid lymphadenopathy. * Pelvis (below common iliac): No radiotracer avid lymphadenopathy. Vasculature: Blood pool activity. Abdominal aortic atherosclerotic calcifications without aneurysm. Prostate & Seminal Vesicles: Tracer avid posterior mid right peripheral zone lesion with SUV max 10.4. Pelvis Soft Tissues: No radiotracer avid lesion. MUSCULOSKELETAL: Bones: No radiotracer avid lesion. No lytic or sclerotic lesion. Degenerative changes. Soft Tissues: No radiotracer avid lesion. IMPRESSION IMPRESSION: PROSTATE: * Tracer avid posterior mid right peripheral zone lesion. JUSTIN DISEASE: * No PSMA expressing pelvic lymphadenopathy. METASTATIC DISEASE: * No PSMA expressing distant metastases. Rib Matcher And Fitter: HORACIO Transcribe Date/Time: Oct 06 2024 10:43P Dictated by : ANGUS GALO MD This examination was interpreted and the report reviewed and electronically signed by: ANGUS GALO MD on Oct 06 2024 10:53PM EST [facility] Radiology Study observation (narrative) [facility] PET+CT Guidance for localiza tion of tumor of Whole body-- W [id number] IVOrdered By: [facility] Provider on 10-06-2024 [facility] Bacteria Ur Culton 5 Bacteria identified Cx Nom (U) CULTURE, URINE: <10,000 CFU/ml Normal Urogenital Caprice Normal [facility] Comment on above: Performed By: #### 6 30-4 #### [facility] CLIA [id number] [address] [facility] CNOVon 10-01-2024 CNOV Office Visit (AKURFL ) -- SHASHANK ESPINOZA ([id number]) 1945 M Date Time Provider Department 10/01/24 12:15 PM AN HENLEY JR During your visit today, we recorded the following information about you: Pulse Height 74/minute 1.778 m An Henley Jr., MD 10/01/2024 1:20 PM Signed ESTABLISHED PATIENT OFFICE VISIT HPI Shashank Espinoza is a 79 year old male who presents for follow of elevated PSA. PSA 11(8)(5). S/p prostate biopsy 09/15/24. GG3, cribiform pattern present. 50cc gland. Intermediate unfavorable risk. Complains of ED, but not a significant issue. Prostate Cancer Consultation Note Mr Shashank Espinoza was diagnosed with Clinical Stage(1c) Wesley's score 7 (4+3) adenocarcinoma of the prostate with an associated PSA of 11 and an estimated prostatic volume of 50. He had 3 of 12 cores positive with disease identified in the 3 portion(s) of the prostate. The patient presents with his daughter and I have discussed his apparent localized prostate cancer at length. Specifically we discussed the Juan A score, number and percent of cores involved with disease, the rosie tables risk stratification criteria which are based upon the Wesley score, PSA, and clinical T stage. Based upon the clinical features the patient falls into moderate risk category for 10 year biochemical disease free survival regardless of which therapeutic modality he chooses. He understands that there is a small, but real, chance of occult metastatic disease and the logic of when metastatic workup is appropriate. We discussed various options for management of his disease including watchful waiting, active surveillance, radiation modality and surgical extirpation. The options of watchful waiting or active surveillence were gone over and what these would entail, with selective delayed intervention, hormonal therapy in its various forms. The protocol for periodic PSA tests and repeating his transrectal prostate ultrasound, without or with prostate biopsy was covered. With respect to surgical intervention we compared and contrasted open, laparoscopic and robotic prostatectomy with or without bilateral pelvic lymphadenectomy. We compared these with respect to cancer control, urinary control, and erectile dysfunction. I explained that any patient undergoing treatment for prostate cancer may need additional therapy. The possibility of severe or total loss of urinary control, possibly needed surgery to implant an artificial urinary sphincter is possible after prostate cancer surgery. The possibility of loss of erections, and the possible treatment options was discussed. The other potential downside, including but not limited to urethral stricture, bladder neck contracture. I explained to him that robotic prostatectomy is a major surgical procedure and has possible major complications including, but not limited to bleeding requiring transfusion, rectal injury requiring a temporary colostomy, damage to abdominal structure, infection, myocardial infarction, stroke, deep vein thrombosis/ pulmonary embolism, or open conversion. We discussed the procedure related morbidity, hospitalization, and convalescence period. We have reviewed the recent data, which would show that at least one out of ten patients undergoing radical prostatectomy will have at least one complication whether minor or major, and this could be as high as 25% (one in four). We have discussed that with surgical intervention. 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 We also discussed time commitment for the external beam therapy being once a day, five days a week for 5-7 weeks during which most people can continue normal daily activities. I described the likelihood of flare up of hemorrhoids, and mild decrease in physical stamina during the later portion of the treatments. We discussed the time frame for PSA response that would indicate efficacy of the radiation therapy. A referral to radiation oncology was offered. Additionally, we discussed cryosurgical ablation of the prostate (with without nerve sparing). Specifically, we discussed the procedure related morbidity, risk of rectal injury, urinary incontinence, post cryo urinary frequency and urgency, and risk of impotence. We also discussed the outpatient nature of the procedure, minimal need for pain medication and the need for a urinary catheter for 2-weeks following the procedure and the time frame of PSA response that would reflect the efficacy of the cryosurgical procedure and the follow up that would be involved. Finally, with respect to the cryosurgical (more content not included)... Normal [facility] CNPYuly 10-01-2024 [facility] Tele[facility] (AKUR[facility] -- SHASHANK ESPINOZA ([id number]) 1945 M Date Time Provider Department 10/01/24 AN HENLEY JR During your visit today, we recorded the following information about you: An Henley Jr., MD 10/01/2024 11:58 AM Signed FRANCINE Did R laser litho of distal stone with stent 10/01 Scheduled with you 10/20 for R laser litho Still has large R renal stone as well as L renal calc Dmitriy Mcneill MD 10/01/2024 12:22 PM Signed So confused - this gentleman has prostate cancer. I don't see any stones. An Henley Jr., MD 10/01/2024 12:37 PM Signed Whoops Yes Wrong nelli Allergies As of Date: 10/01/2024 Noted Allergy Reaction PRILOSEC (OMEPRAZOLE MAGNESIUM) 09/27/2010 14 - Other: See Comments Comments: GI upset Date Reviewed: 09/15/2024 Reviewed by: Hipolito Maynard MA - Fully Assessed Reason for Visit: Appointment [186] Prescriptions as of 10/01/2024 - levothyroxine (SYNTHROID) 50 mcg tablet Take 1 tablet by mouth once daily. Except take 2 on Sunday ([facility]) - clonazePAM (KLONOPIN) 1 mg tablet Take 1 tablet by mouth daily at bedtime. May also take 1 tablet once daily as needed. Do all this for 90 days. Patient should start on July 18, 2024. - tiotropium-olodaterol (STIOLTO RESPIMAT) 2.5-2.5 mcg/actuation inhaler Inhale 2 Puffs as instructed once daily. - albuterol HFA (PROVENTIL HFA, VENTOLIN HFA) 90 mcg/actuation inhaler Inhale 2 Puffs as instructed every 4 hours as needed. - ipratropium bromide (ATROVENT) 42 mcg (0.06 %) nasal spray Use 2 Sprays in the nose four times daily as needed. - fluticasone (FLONASE) 50 mcg/actuation nasal spray Use 2 Sprays in each nostril once daily as needed. Rinse mouth after use. - traZODone (DESYREL) 100 mg tablet Take 1-2 tablets by mouth daily at bedtime. (Get through [facility] now) - psyllium husk (KONSYL SUGAR-FREE) 6 gram/6 gram powd Take 1 Scoop by mouth once daily as needed. - nitroglycerin sublingual (NITROQUICK) 0.4 mg SL tablet Dissolve 1 tablet under the tongue as needed. FOR CHEST PAIN. IF NO RELIEF CALL 911 - docusate sodium (COLACE) 100 mg capsule Take 1 capsule by mouth twice daily as needed for Constipation. - atorvastatin (LIPITOR) 40 mg tablet Take 1 tablet by mouth once daily. For cholesterol. (From [facility]) - famotidine (PEPCID) 40 mg tablet Take 1 tablet by mouth twice daily. - amLODIPine (NORVASC) 10 mg tablet Take 1 tablet by mouth once daily. 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 Cruz) - losartan (COZAAR) 100 mg tablet Take 1 tablet by mouth once daily. - Aspirin 81 mg ORAL Tab Take 81 mg by mouth once daily. Problem List As Of Date 10/01/2024 Noted Resolved Disorder of bone and cartilage [M89.9, M94.9] Depression [F32.A] Anxiety [F41.9] Chronic hepatitis C without mention of hepatic *05/08/2005 02/16/2016 ALOPECIA [704.0] 05/08/2005 INT HEMORRHOID W/O COMPL [K64.8] 05/08/2005 COLON POLYP [D12.6] 05/08/2005 ERECTILE DYSFUNCTION [F52.9] 05/08/2005 Hemorrhage of gastrointestinal tract, unspecifi*05/08/2005 02/17/2014 MALAISE AND FATIGUE NEC [R53.81, R53.83] 07/21/2005 PERS HX TOBACCO USE [Z87.891] 12/26/2005 Epidermal Cyst [L72.0] 07/13/2006 BENIGN MICHAEL SKIN FACE NEC [D23.30] 07/13/2006 XANTHALASMA///MIXED HYPERLIPIDEMIA [E78.2] 07/13/2006 XANTHELASMA [H02.60] 07/13/2006 ACNE NEC [L70.8] 07/13/2006 Open wound(s) (multiple) of unspecified site(s)*07/25/2006 09/19/2017 UNCERTAIN BEHAV NEOPL SKIN [D48.5] 08/24/2006 BENIGN MICHAEL SKIN EYELID [D23.10] 08/31/2006 MYALGIA AND MYOSITIS NOS [RFR6684] 04/12/2007 ADJUSTMENT DISORDER WITH DEPRESSED MOOD [F43.21]12/13/2007 VIRAL WARTS NOS [B07.9] 10/20/2008 INSOMNIA NOS [G47.00] 11/03/2008 CHRONIC PAIN NEC [G89.29] 11/03/2008 Fatty liver [K76.0] 08/16/2009 02/17/2014 SUMMARY [V999.95] 08/30/2010 Chest pain [R07.9] 08/30/2010 Melena [K92.1] 08/30/2010 HLD (hyperlipidemia) [E78.5] 08/30/2010 Hypertension goal BP (blood pressure) < 140/90 *08/30/2010 CAD (coronary artery disease), [place] coronary *08/30/2010 S/P coronary artery stent placement [Z95.5] 08/30/2010 Acute gastritis without mention of hemorrhage [*10/10/2010 02/16/2016 Duodenitis without mention of hemorrhage [K29.8*10/10/2010 Sinus bradycardia [R00.1] 04/10/2011 Carotid artery occlusion, 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 Normal [facility] CNPN Telephone (RADTWS) -- SHASHANK ESPINOZA ([id number]) 1945 M Date Time Provider Department 10/01/24 ANDREA WU During your visit today, we recorded the following information about you: Ginna Obrien 10/01/2024 3:50 PM Signed Please call Enedelia espinal @ [phone] to schedule. Consult with Dr. Wu, order in epic. Ginna Obrien 10/01/2024 4:15 PM Signed 1st attempt. Message left for Enedelia to contact office and schedule New Patient consult with Dr. Wu. Dr. Henley referring. Order in [facility]. PROSTATE CANCER CONSULT* Madie Gypsy 10/01/2024 4:18 PM Signed Spoke to Enedelia and scheduled Gypsy Ramachandran Allergies As of Date: 10/01/2024 Noted Allergy Reaction PRILOSEC (OMEPRAZOLE MAGNESIUM) 09/27/2010 14 - Other: See Comments Comments: GI upset Date Reviewed: 09/15/2024 Reviewed by: Hipolito Maynard MA - Fully Assessed Reason for Visit: New Patient [172] Prescriptions as of 10/01/2024 - levothyroxine (SYNTHROID) 50 mcg tablet Take 1 tablet by mouth once daily. Except take 2 on Sunday ([facility]) - clonazePAM (KLONOPIN) 1 mg tablet Take 1 tablet by mouth daily at bedtime. May also take 1 tablet once daily as needed. Do all this for 90 days. Patient should start on July 18, 2024. - tiotropium-olodaterol (STIOLTO RESPIMAT) 2.5-2.5 mcg/actuation inhaler Inhale 2 Puffs as instructed once daily. - albuterol HFA (PROVENTIL HFA, VENTOLIN HFA) 90 mcg/actuation inhaler Inhale 2 Puffs as instructed every 4 hours as needed. - ipratropium bromide (ATROVENT) 42 mcg (0.06 %) nasal spray Use 2 Sprays in the nose four times daily as needed. - fluticasone (FLONASE) 50 mcg/actuation nasal spray Use 2 Sprays in each nostril once daily as needed. Rinse mouth after use. - traZODone (DESYREL) 100 mg tablet Take 1-2 tablets by mouth daily at bedtime. ([facility]) - psyllium husk (KONSYL SUGAR-FREE) 6 gram/6 gram powd Take 1 Scoop by mouth once daily as needed. - nitroglycerin sublingual (NITROQUICK) 0.4 mg SL tablet Dissolve 1 tablet under the tongue as needed. FOR CHEST PAIN. IF NO RELIEF CALL 911 - docusate sodium (COLACE) 100 mg capsule Take 1 capsule by mouth twice daily as needed for Constipation. - atorvastatin (LIPITOR) 40 mg tablet Take 1 tablet by mouth once daily. For cholesterol. ([facility]) - famotidine (PEPCID) 40 mg tablet Take 1 tablet by mouth twice daily. - amLODIPine (NORVASC) 10 mg tablet Take 1 tablet by mouth once daily. ([place] Mason senior mechanical engineer increased dose--Dr. Cruz) - losartan (COZAAR) 100 mg tablet Take 1 tablet by mouth once daily. - Aspirin 81 mg ORAL Tab Take 81 mg by mouth once daily. Problem List As Of Date 10/01/2024 Noted Resolved Disorder of bone and cartilage [M89.9, M94.9] Depression [F32.A] Anxiety [F41.9] Chronic hepatitis C without mention of hepatic *05/08/2005 02/16/2016 ALOPECIA [704.0] 05/08/2005 INT HEMORRHOID W/O COMPL [K64.8] 05/08/2005 COLON POLYP [D12.6] 05/08/2005 ERECTILE DYSFUNCTION [F52.9] 05/08/2005 Hemorrhage of gastrointestinal tract, unspecifi*05/08/2005 02/17/2014 MALAISE AND FATIGUE NEC [R53.81, R53.83] 07/21/2005 PERS HX TOBACCO USE [Z87.891] 12/26/2005 Epidermal Cyst [L72.0] 07/13/2006 BENIGN MICHAEL SKIN FACE NEC [D23.30] 07/13/2006 XANTHALASMA///MIXED HYPERLIPIDEMIA [E78.2] 07/13/2006 XANTHELASMA [H02.60] 07/13/2006 ACNE NEC [L70.8] 07/13/2006 Open wound(s) (multiple) of unspecified site(s)*07/25/2006 09/19/2017 UNCERTAIN BEHAV NEOPL SKIN [D48.5] 08/24/2006 BENIGN MICHAEL SKIN EYELID [D23.10] 08/31/2006 MYALGIA AND MYOSITIS NOS [[id number]] 04/12/2007 ADJUSTMENT DISORDER WITH DEPRESSED MOOD [F43.21]12/13/2007 VIRAL WARTS NOS [B07.9] 10/20/2008 INSOMNIA NOS [G47.00] 11/03/2008 CHRONIC PAIN NEC [G89.29] 11/03/2008 Fatty liver [K76.0] 08/16/2009 02/17/2014 SUMMARY [V999.95] 08/30/2010 Chest pain [R07.9] 08/30/2010 Melena [K92.1] 08/30/2010 HLD (hyperlipidemia) [E78.5] 08/30/2010 Hypertension goal BP (blood pressure) < 140/90 *08/30/2010 CAD (coronary artery disease), [place] coronary *08/30/2010 S/P coronary artery stent placement [Z95.5] 08/30/2010 Acute gastritis without mention of hemorrhage [*10/10/2010 02/16/2016 Duodenitis without mention of hemorrhage [K29.8*10/10/2010 Sinus bradycardia [R00.1] 04/10/2011 Carotid artery occlusion, 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 Normal [facility] UA DIP, URINE (POC)on 2024 BILIRUBIN UA (POCT) Negative Negative [facility] CLARITY UA (POCT) Clear [facility] COLOR UA (POCT) Yellow [facility] GLUCOSE UA (POCT) Negative Negative mg/dL [facility] Hemoglobin Ql (U) Moderate Abnormal Negative [facility] Interpretation and review of laboratory results Abnormal [facility] KETONE UA (POCT) Negative Negative mg/dL [facility] LEUKOCYTES UA (POCT) Negative Negative [facility] NITRITE UA (POCT) Negative [facility] U[facility] (POCT) 5.5 4.5 - 8.0 [facility] Protein Ql (U) Negative Negative mg/dL [facility] SPECIFIC GRAVITY UA (POCT) 1.02 1.005 - 1.030 [facility] UROBILINOGEN UA (POCT) 0.2 Crystal l E.U./dL [facility] Location:[facility], [address] [place] [address], [place], [place], [id number] [place] [address] POINT OF CARE [facility] Carotid Duplex Ultrasoundon 09-23-2024 Carotid Duplex Ultrasound [facility] [address] [place] [address] Carotid Duplex Ultrasound 09/23/24 0959 MR#: [id number] Acct: [id number] Name: SHASHANK ESPINOZA Rep #: [id number] : 1945 79 From: Jarod Davies MD Attending Dr: Dr. Jarod Davies MD Status: DE P CLI Ordering Dr: Jarod Davies MD Date: 09/23/24 Location: [facility] Sex: M C Admitted: Reason For Study Reason For Study: Rt ICA Occlusion Rt. Velocities/BP Lt. Velocities/BP Prox CCA 44.6/7.3 cm/sec. Prox CCA 63.2/18.8 cm/sec. Mid CCA 46.8/11.7 cm/sec. Mid CCA 82.1/27.3 cm/sec. Dist CCA 39.1/11.7 cm/sec. Dist CCA 64.1/25.4 cm/sec. ICA appears occluded. Known Occlusion. BULB - 53.8/24.5 cm/sec. Prox ECA 88.6/16.0 cm/sec. Prox ICA 129.3/50.3 cm/sec. Rt. Vert. 62.2/20.4 cm/sec. Mid ICA 138.1/52.5 cm/sec. Dist ICA 100.2/40.0 cm/sec. Lt. ICA/CCA = 1.7. Prox ECA 88.9/18.6 cm/sec. Lt. Vert. 39.1/9.9 cm/sec. Right Extracranial There is homogeneous, smooth atherosclerotic plaque noted in the right common carotid artery. There is heterogeneous, irregular atherosclerotic plaque noted in the right internal carotid artery. The right internal carotid artery is occluded. There is heterogeneous, irregular atherosclerotic plaque noted in the right external carotid artery. Antegrade flow is noted in the right vertebral artery. Left Extracranial There is heterogeneous, irregular atherosclerotic plaque noted in the left common carotid artery. There is heterogeneous, irregular atherosclerotic plaque noted in the left internal carotid artery. There is heterogeneous, irregular atherosclerotic plaque noted in the left external carotid artery. Antegrade flow is noted in the left vertebral artery. Procedure Carotid Duplex 12933. This is a Carotid Duplex examination using B-mode, color flow and specral Doppler. The exam was diagnostic. Exam performed in department. VL/Carotid Duplex Ultrasound Interpretation Summary Right internal carotid occluded. Moderate (50-69%) stenosis left extracranial internal carotid. Patent and antegrade vertebrals bilaterally. Ordering Physician: Jarod Davies Referring Physician: Yuval Dorantes Performed By: Mode Lopez RVT 11/13/241958 Date Jarod Davies MD CC: Dr. Jarod Davies MD; Dr. Yuval Dorantes MD Date Dictated: 09/23/2459 Date Transcribed: 11/13/241958 Rib Matcher And Fitter: Ines [facility] Office Visit (UROLAG ) -- SHASHANK ESPINOZA ([id number]) 1945 M Date Time Provider Department 09/15/24 3:30 PM AN HENLEY JR UROESTELLE During your visit today, we recorded the following information about you: Pulse Blood pressure 73/minute 122/80 An Henley Jr., MD 09/15/2024 3:08 PM Signed PROSTATE BIOPSY WITH ULTRASOUND GUIDANCE Shashank Espinoza a 79 year old. History and Physical reviewed and is unchanged. . UNIVERSAL PROTOCOL / SAFETY CHECKLIST Procedure to be Performed: trus bx Sign In: A Moment of CARE was completed. Appropriate PPE (Personal Protective Equipment) worn by all providers involved with the procedure. Special equipment not required. Patient/Surrogate Stated/Verified: Patient name, Date of , Relevant allergies, and The intended procedure Time Out: Relevant labs, photos, and/or imaging studies have been reviewed. Intended patient and procedure match the source document(s) (e.g. consent, HANDP, associated studies [imaging, pathology]) match the intended patient and procedure. Consent obtained and matches the intended procedure. Yes. Correct side/site has been marked and visible. Medications required for this procedure are verified. Fire risk assessed and is not applicable. Implants: are not applicable. Sign Out: Specimens are all correctly labeled and sent. All instruments, equipment, possible retained foreign bodies are accounted for. Yes. The post-procedure plan of care has been communicated to the patient or surrogate. Fire risk assessment done Pre procedure dx: elevated psa Post procedure dx: same Informed Consent Discussed: Yes. Risks, benefits, alternatives and personnel discussed with patient who consents to proceed. Discussed RBAPC. Audible time out was performed. Is the patient having any pain? No 0 on a scale of 0 to 10 PSA (ng/mL) Date Value 06/18/2024 11.54 11/30/2020 4.28 PALPABLE NODULE: No Prostate biopsies taken from the site below using ultrasound guidance 1.) RIGHT BASE: 2 2.) RIGHT MID: 2 3.) RIGHT APEX: 2 4.) LEFT BASE: 2 5.) LEFT MID: 2 6.) LEFT APEX: 2 ALLERGIES Allergen Reactions Prilosec [Omeprazol* Other: See Comments GI upset MEDICATIONS: 10 ml 1% Plain Xylocaine giuliana prostatic nerve block given: Yes PROSTATE ULTRASOUND The prostate sonogram was obtained via transrectal approach. The gland is moderately enlarged, measuring 50cc. There is a homogeneous echo pattern throughout the prostate gland. Echogenic foci within the gland consistant with clacifications were noted. There is no focal lesion within the pereferal zone of the prostate gland. An Henley Jr, MD Referring Provider: PORSHA MEADOWS [[id number]] Allergies As of Date: 09/15/2024 Noted Allergy Reaction PRILOSEC (OMEPRAZOLE MAGNESIUM) 09/27/2010 14 - Other: See Comments Comments: GI upset Date Reviewed: 09/15/2024 Reviewed by: Hipolito Maynard MA - Fully Assessed Reason for Visit: Prostate Biopsy [371] Primary Visit Diagnosis:Benign prostatic hyperplasia with urinary retention [N40.1, R33.8] Other Visit Diagnosis:Elevated prostate specific antigen (PSA) [R97.20] Order(s):UA DIP, URINE (POC) [[id number]] Order #: [id number] #:[id number] 5-LAB ECHO GUIDE FOR BIOPSY [[id number]] Order #: [id number] TRUS ONLY [[id number]] Order #: [id number] NEEDLE BX - PROSTATE [[id number]] Order #: [id number] SURGICAL PATHOLOGY [[id number]] Order #: [id number]. #:[id number] [] lidocaine 20 mg/mL (2 %) 200 mg injection (XYLOCAINE)Disp: Rfl: [] gentamicin 40 mg/mL 160 mg injectionDisp: Rfl: [] levoFLOXacin 500 mg tab(s) (LEVAQUIN)Disp: Rfl: Prescriptions as of 09/15/2024 - levothyroxine (SYNTHROID) 50 mcg tablet Take 1 tablet by mouth once daily. Except take 2 on Sunday ([facility]) - clonazePAM (KLONOPIN) 1 mg tablet Take 1 tablet by mouth daily at bedtime. May also take 1 tablet once daily as needed. Do all this for 90 days. Patient should start on July 18, 2024. - tiotropium-olodaterol (STIOLTO RESPIMAT) 2.5-2.5 mcg/actuation inhaler Inhale 2 Puffs as instructed once daily. - albuterol HFA (PROVENTIL HFA, VENTOLIN HFA) 90 mcg/actuation inhaler Inhale 2 Puffs as instructed every 4 hours as needed. - ipratropium bromide (ATROVENT) 42 mcg (0.06 %) nasal spray Use 2 Sprays in the nose four times daily as needed. - fluticasone (FLONASE) 50 mcg/actuation nasal spray Use 2 Sprays in each nostril once daily as needed. Rinse mouth after use. - traZODone (DESYREL) 100 mg tablet Take 1-2 tablets by mouth daily at bedtime. [facility]) - psyllium husk (KONSYL SUGAR-FREE) 6 gram/6 gram powd Take 1 Scoop by mouth once daily as needed. - nitroglycerin sublingual (NITROQUICK) 0.4 mg SL tablet Dissolve 1 tablet under the tongue as needed. FOR CHEST PAIN. IF NO RE (more content not included)... Normal [facility] Pathology biopsy report Eliceo (Tiss)on 09-15-2024 AP DISCLAIMER Normal [facility] Comment on above: Order Comment: Speci men Type: TISSUE SPECIMEN Ordering Facility: [facility] Address: [address], [place] [address] Result Comment: Martha horton Developed Test (LDT) Disclaimer: Performance characteristics of immunohistochemical, immunofluorescent, and chromogenic in-situ hybridization tests have been determined by the performing laboratory within [facility]'s Sandeep Winkler Pathology and Laboratory Medicine Department ([facility], [facility], [facility], [facility], [facility], [facility], or [facility]) in a manner consistent with CLIA requirements. One or more of these tests may not have been cleared or approved by the FDA. [facility] is regulated under CLIA as qualified to perform high-complexity testing. These tests are used for clinical purposes. These should not be regarded as investigational or for research. Positive and negative controls stain appropriately. Performed By: #### 6 [id number] #### [facility] CLIA [id number] [address] [place] [address] [place] CASE REPORT Normal [facility] Comment on above: Order Comment: Speci men Type: TISSUE SPECIMEN Ordering Facility: [facility] Address: [address] [place] [address] Result Comment: Surg [facility] Pathology Report Case: [id number] Authorizing Provider: An Henley Jr., Collected: 09/15/2024 03:21 PM MD Ordering Location: Urology Received: 09/15/2024 04:11 PM Pathologist: Kylee Gilbert MD Specimens: A) - Prostate, Right, Base, Biopsy B) - Prostate, Right, Mid, Biopsy C) - Prostate, Right, [place], Biopsy D) - Prostate, Right, Lateral Base, Biopsy E) - Prostate, Right, Lateral Mid, Biopsy F) - Prostate, Right, Lateral [place], Biopsy G) - Prostate, Left, Base, Biopsy H) - Prostate, Left, Mid, Biopsy I) - Prostate, Left, [place], Biopsy J) - Prostate, Left, Lateral Base, Biopsy K) - Prostate, Left, Lateral Mid, Biopsy L) - Prostate, Left, Lateral [place] , Biopsy Performed By: #### 6 6121-5 #### [facility] CLIA [id number] [address] [place] CLINICAL HISTORY Elevated PSA Normal [facility] Comment on above: Order Comment: Speci men Type: TISSUE SPECIMEN Ordering Facility: [facility] Address: [address] [place] [address] Performed By: #### 6 6121-5 #### [facility] CLIA [id number] [address] [place] DIAGNOSIS COMMENT Dr. Jaylen Clark revie wed parts A, B, D, and E and agrees with the diagnosis. Normal [facility] Comment on above: Order Comment: Speci men Type: TISSUE SPECIMEN Ordering Facility: [facility] Address: [address] [place] [address] Performed By: #### 6 6121-5 #### [facility] CLIA [id number] [address] OF [place] FINAL DIAGNOSIS Normal [facility] Comment on above: Order Comment: Speci men Type: TISSUE SPECIMEN Ordering Facility: [facility] Address: [address] [place] [address] Result Comment: A. P rostate, right base, biopsy: - Prostatic adenocarcinoma with intraductal features, Juan A score 4 +3 = 7 (grade group 3) involving 90% of 1 core (12 mm tumor length). - Large cribriform pattern 4. B. Prostate, right mid, biopsy: - High-grade prostatic intraepithelial neoplasia. C. Prostate, right apex, biopsy: - . Benign prostatic tissue. D. Prostate, right lateral base, biopsy: - Prostatic adenocarcinoma Juan A score 4 +3 = 7 (grade group 3) involving 90% of 1 core (14 mm tumor length). - Large cribriform pattern 4. E. Prostate, right lateral mid, biopsy: - Prostatic adenocarcinoma Juan A score 3+4 = 7 (grade group 2) involving 45% of 1 core (7 mm tumor length). - High-grade prostatic intraepithelial neoplasia. F. Prostate, right lateral apex, biopsy: - Benign prostatic tissue. G. Prostate, left base, biopsy: - Benign prostatic tissue. H. Prostate, left mid, biopsy: - Benign prostatic tissue. I. Prostate, left apex, biopsy: - Benign prostatic tissue. J. Prostate, left lateral base, biopsy: - Benign prostatic tissue. K. Prostate, left lateral mid, biopsy: - Benign prostatic tissue. L. Prostate, left lateral apex, biopsy: - Benign prostatic tissue. Prostate Cancer Biopsy Summary Number of cores examined: 12 Number of cores positive: 3 Highest Grade Group: 3 Highest % of core involvement: 90 % Cribriform pattern 4: Present Intraductal carcinoma: Present [employer]ist tumor block to use for additional studies: D at 1348 EST Performed By: #### 6 6121-5 #### [facility] CLIA [id number] [address] [place] FINAL PERFORMING LAB Normal [facility] Comment on above: Order Comment: Speci men Type: TISSUE SPECIMEN Ordering Facility: [facility] Address: [address] [place] [address] Result Comment: Diag nostic interpretation performed at: [facility], [address] [address] CLIA# [id number] Sales Promotion Officer: Harley Olvera MD Performed By: #### 6 6121-5 #### [facility] CLIA [id number] [address] [place] GROSS DESCRIPTION Normal [facility] Comment on above: Order Comment: Speci men Type: TISSUE SPECIMEN Ordering Facility: [facility] Address: [address] [place] [address] [place] [address] Result Comment: A. P rostate, Right, Base, Biopsy Received in formalin and designated Right base is a single rinaldi needle core, 1.5 x 0.1 x 0.1 cm. The specimen is entirely submitted in cassette A1. B. Prostate, Right, Mid, Biopsy Received in formalin labeled right mid is a single portion of cylindrical rinaldi tissue measuring 1.6 x 0.1 x 0.1 cm. Totally submitted in one cassette. C. Prostate, Right, [place], Biopsy Received in formalin labeled right apex is a single portion of cylindrical rinaldi tissue measuring 1.7 x 0.1 x 0.1 cm. Totally submitted in one cassette. D. Prostate, Right, Lateral Base, Biopsy Received in formalin labeled right lateral base is a single portion of cylindrical rinaldi tissue measuring 1.7 x 0.1 x 0.1 cm. Totally submitted in one cassette. E. Prostate, Right, Lateral Mid, Biopsy Received in formalin labeled right lateral mid is a single portion of cylindrical rinaldi tissue measuring 1.9 x 0.1 x 0.1 cm. Totally submitted in one cassette. F. Prostate, Right, Lateral [place], Biopsy Received in formalin labeled right lateral apex is a single portion of cylindrical rinaldi tissue measuring 1.5 x 0.1 x 0.1 cm. Totally submitted in one cassette. G. Prostate, Left, Base, Biopsy Received in formalin labeled left base is a single portion of cylindrical rinaldi tissue measuring 1.6 x 0.1 x 0.1 cm. Totally submitted in one cassette. H. Prostate, Left, Mid, Biopsy Received in formalin labeled left mid is a single portion of cylindrical rinaldi tissue measuring 1.5 x 0.1 x 0.1 cm. Totally submitted in one cassette. I. Prostate, Left, [place], Biopsy Received in formalin labeled left apex is a single portion of cylindrical rinaldi tissue measuring 1.7 x 0.1 x 0.1 cm. Totally submitted in one cassette. J. Prostate, Left, Lateral Base, Biopsy Received in formalin labeled left lateral base is a single portion of cylindrical rinaldi tissue measuring 1.7 x 0.1 x 0.1 cm. Totally submitted in one cassette. K. Prostate, Left, Lateral Mid, Biopsy Received in formalin labeled left lateral mid is a single portion of cylindrical rinaldi tissue measuring 1.5 x 0.1 x 0.1 cm. Totally submitted in one cassette. L. Prostate, Left, Lateral [place] , Biopsy Received in formalin labeled left lateral apex is a single portion of cylindrical rinaldi tissue measuring 1.6 x 0.1 x 0.1 cm. Totally submitted in one cassette. KM September 16, 2024 2:32 PM Gross examination performed at [facility], [address] [place] [address] Performed By: #### 6 6121-5 #### [facility] CLIA [id number] 1 [place] [address] [place] UA DIP, URINE (POC)on 2024 BILIRUBIN UA (POCT) Negative Negative [facility] CLARITY UA (POCT) Clear [facility] COLOR UA (POCT) Yellow [facility] GLUCOSE UA (POCT) Negative Negative mg/dL [facility] Hemoglobin Ql (U) Negative Negative [facility] Interpretation and review of laboratory results Abnormal [facility] KETONE UA (POCT) Negative Negative mg/dL [facility] LEUKOCYTES UA (POCT) Negative Negative [facility] NITRITE UA (POCT) Negative Negative [facility] PH UA (POCT) 5.5 4.5 - 8.0 [facility] Protein Ql (U) Negative Negative mg/dL [facility] SPECIFIC GRAVITY UA (POCT) <=1.005 Abnormal 1.005 - 1.030 [facility] UROBILINOGEN UA (POCT) 0.2 Crystal l E.U./dL [facility] Location:[facility] [place], [address] [address], [place], [place], [id number] [place] [address] POINT OF CARE [facility] CNOVon 08-11-2024 CNOV Office Visit (PULMWS ) -- SHASHANK ESPINOZA ([id number]) 1945 M Date Time Provider Department 08/11/24 12:45 PM CARAL ULRICH PULMWS During your visit today, we recorded the following information about you: Pulse Respiration Blood pressure Weight 68/minute 12/minute 98/64 75.8 kg Carla Ulrich MD 08/11/2024 2:17 PM Signed . Respiratory [place] Note Patient name: Shashank Espinoza PCP: Yuval Dorantes MD CC: Follow-up chest CT HPI: Shashank Espinoza 79 year old male former 24-dyyr-vutg smoker, quitting 2010 with PMH significant for CAD s/p stents, PAD, hypothyroidism, HLD, AAA, TIA, lung nodule, and emphysema. At initial visit with me in September 2022, he had an new RLL lung nodule on outside film compared to CT in 2015. Follow up CT 10/2023 showed resolution of the previous new nodule and stable bilateral 2-3 mm nodules. At [facility] with [facility], inhaled therapy changed to Stiolto Respimat with continued use of albuterol as needed. [facility] Since starting Stiolto Respimat, he has had improvement in his dry cough. He denies significant limiting dyspnea, wheezing, chest pain. He presents today for follow-up of his CT. CT of the chest shows dilated aortic aneurysm, stable bilateral 2 to 3 mm pulmonary nodules, emphysema and a area in the right lower lobe that appears to be a pleural plaque. Previous CT showed some focal pleural scarring in this area. DATA: Imaging / Diagnostic Studies: 12/2022: DATE OF EXAM: Jul 30 2024 11:20AM [facility] 0541 - CT CHEST WO IVCON / Comparison: CT chest 10/31/2023 RESULT: Limitations: None. Lines, tubes, and devices: None. Lung parenchyma and airways: Centrilobular emphysema. Linear scarring or atelectasis in bilateral posterior lower lobes. No consolidation. Stable scattered bilateral subcentimeter pulmonary nodules measuring up to 3 mm. No new suspicious pulmonary nodule. The central airways are patent. Pleural space: No pleural effusion. No pleural thickening. Lower neck, lymph nodes, and mediastinum: The imaged thyroid gland is normal. No lymphadenopathy in the supraclavicular, axillary, mediastinal, or hilar regions. Heart, pericardium, and thoracic vessels: The thoracic aorta and main pulmonary artery are normal in caliber. The cardiac chambers are normal in size. Coronary artery atherosclerotic calcifications are noted, although the study is not optimized for coronary assessment. No pericardial effusion or thickening. Bones and soft tissues: No destructive bone lesion. Degenerative disease of the thoracic spine. Chest wall is unremarkable. Upper abdomen: No acute abnormality in the imaged upper abdomen. Multiple hepatic cysts. Localizer images: No additional findings. IMPRESSION: 1. Stable subcentimeter pulmonary nodules measuring up to 3 mm. No new pulmonary nodules. 2. Centrilobular emphysema 3. 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 MRA 07/07/11 Anxiety state, unspecified Ascending aorta dilatation (HCC) 10/14/2015 CT Chest 4.5X3.96cm BENIGN NEOPLASM LG BOWEL 05/08/2005 colon polyps Benign prostatic hyperplasia with urinary retention CAD (coronary artery disease) 08/22/2010 s/p drug eluting stent placement (2) Carotid artery occlusion, right MRI 07/04/11; MRA 07/07/11 Centrilobular emphysema (HCC) 09/25/2022 Depressive disorder, not elsewhere classified Disorder of bone and cartilage, unspecified Elevated prostate specific antigen (PSA) Essential hypertension, benign GASTROINTEST HEMORR NOS 05/08/2005 Hearing loss in left ear Dr. 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 Except take 2 on Sunday ([facility]) clonazePAM (KLONOPIN) 1 mg tablet Take 1 tablet by mouth daily at bedtime. May also take 1 tablet once daily as needed. Do all this for 90 days. Patient should start on July 18, 2024. tiotropium-olodaterol (STIOLTO RESPIMAT) 2.5-2.5 mcg/actuation inhaler Inhale 2 Puffs as instructed once daily. albuterol HFA (PROVENTIL HFA, VENTOLIN HFA) 90 mcg/actuation inhaler Inhale 2 Puffs as instructed every 4 hours as needed. ipratropium bromide (ATR (more content not included)... Normal [facility] CNOVon 07-30-2024 CNOV Office Visit (INTMWS ) -- SHASHANK ESPINOZA ([id number]) 1945 M Date Time Provider Department 07/30/24 2:40 PM YUVAL DORANTES INTMWS During your visit today, we recorded the following information about you: Temperature Pulse Respiration Blood pressure 98.1 degrees 69/minute 16/minute 130/78 Weight 75 kg Yuval Dorantes MD 07/30/2024 4:16 PM Signed This note was created using [employer]OUNDFLO[employer]. Subjective Shashank Espinoza is a 79 year old male. Patient presents with: ED Follow-up: [facility] ED follow up 07/21/24 SUBJECTIVE: Shashank Espinoza is a 79 year old year old gentleman here today for ER follow up appointment for review of medical conditions. Shashank Espinoza is a 79-year-old male with a history of COPD, presenting for follow-up after an ED visit for norovirus. Shashank was seen in the ED for norovirus, presenting with diarrhea and low blood pressure. He denies nausea or emesis. He was treated with IV fluids and discharged home with instructions to maintain hydration and avoid contact with others for 5 days. He was able to maintain hydration at home and did not require further medical attention. He denies any current issues with hydration or blood pressure. Shashank has a history of COPD and recently underwent a CT scan of the chest without IV contrast on July 30 for evaluation. 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 Ulrich, on the to discuss the results. He also has a prostate biopsy scheduled with Dr. Henley on September 15 at [facility] ([facility]). [facility]ash[facility] through the [facility], except for clonazepam, which he obtains elsewhere due to mailing restrictions on controlled substances. He is scheduled for his yearly check-up at the [facility] on August 19, where he will receive the RSV vaccine. He inquires about the timing of the vaccine in relation to his recent illness. We reviewed the last June 2024 appointment progress note that had some errors: Shashank does not have any issues with memory regarding forgetting family members' identities. 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 MRA 07/07/11 Anxiety state, unspecified Ascending aorta dilatation (HCC) 10/14/2015 CT Chest 4.5X3.96cm BENIGN NEOPLASM LG BOWEL 05/08/2005 colon polyps Benign prostatic hyperplasia with urinary retention CAD (coronary artery disease) 08/22/2010 s/p drug eluting stent placement (2) Carotid artery occlusion, right MRI 07/04/11; MRA 07/07/11 Centrilobular emphysema (HCC) 09/25/2022 Depressive disorder, not elsewhere classified Disorder of bone and cartilage, unspecified Elevated prostate specific antigen (PSA) Essential hypertension, benign GASTROINTEST HEMORR NOS 05/08/2005 Hearing loss in left ear Dr. 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 Except take 2 on Sunday ([facility]) clonazePAM (KLONOPIN) 1 mg tablet Take 1 tablet by mouth daily at bedtime. May also take 1 tablet once daily as needed. Do all this for 90 days. Patient should start on July 18, 2024. tiotropium-olodaterol (STIOLTO RESPIMAT) 2.5-2.5 mcg/actuation inhaler Inhale 2 Puffs as instructed once daily. albuterol HFA (PROVENTIL HFA, VENTOLIN HFA) 90 mcg/actuation inhaler Inhale 2 Puffs as instructed every 4 hours as needed. ipratropium bromide (ATROVENT) 42 mcg (0.06 %) nasal spray Use 2 Sprays in the nose four times daily as needed. fluticasone (FLONASE) 50 mcg/actuation nasal spray Use 2 Sprays in each nostril once daily as needed. Rinse mouth after use. traZODone (DESYREL) 100 mg tablet Take 1-2 tablets by mouth daily at bedtime. (Get through [facility] now) psyllium husk (KONSYL SUGAR-FREE) 6 gram/6 gram powd Take 1 Scoop by mouth once daily as needed. nitroglycerin sublingual (NITROQUICK) 0.4 mg SL tablet Dissolve 1 tablet under the tongue as needed. FOR CHEST PAIN. IF NO RELIEF CALL 911 docusate sodium (COLACE) 100 mg capsule Take 1 capsule by mouth twice daily as needed for Constipation. atorvastatin (LIPITOR) 40 mg tablet Take 1 tablet by mouth once daily. For cholesterol. (From [facility]) famotidine (PEPCID) 40 mg tablet Take 1 tablet by mouth twice daily. amLODIPine (NORVASC) 10 mg tablet Take 1 tablet by m (more content not included)... Normal [facility] CT CHEST WO IVCONon 07-30-19 CT CHEST WO IVCON * * *Final Report* * * DATE OF EXAM: Jul 30 2024 11:20AM [facility] 0541 - CT CHEST WO IVCON / PROCEDURE REASON: multiple diagnoses * * * * Physician Interpretation * * * * EXAMINATION: CHEST CT WITHOUT CONTRAST CLINICAL HISTORY: Lung nodules. Emphysema. Technique: Spiral CT acquisition of the chest from the thoracic inlet to the upper abdomen without contrast. MQ: [id number] CT Radiation dose: Integrated Dose-length product (DLP) for this visit = 205 mGy*cm CT Dose Reduction Employed: Automated exposure control(AEC) and iterative recon Comparison: CT chest 10/31/2023 RESULT: Limitations: None. Lines, tubes, and devices: None. Lung parenchyma and airways: Centrilobular emphysema. Linear scarring or atelectasis in bilateral posterior lower lobes. No consolidation. Stable scattered bilateral subcentimeter pulmonary nodules measuring up to 3 mm. No new suspicious pulmonary nodule. The central airways are patent. Pleural space: No pleural effusion. No pleural thickening. Lower neck, lymph nodes, and mediastinum: The imaged thyroid gland is normal. No lymphadenopathy in the supraclavicular, axillary, mediastinal, or hilar regions. Heart, pericardium, and thoracic vessels: The thoracic aorta and main pulmonary artery are normal in caliber. The cardiac chambers are normal in size. Coronary artery atherosclerotic calcifications are noted, although the study is not optimized for coronary assessment. No pericardial effusion or thickening. Bones and soft tissues: No destructive bone lesion. Degenerative disease of the thoracic spine. Chest wall is unremarkable. Upper abdomen: No acute abnormality in the imaged upper abdomen. Multiple hepatic cysts. Localizer images: No additional findings. IMPRESSION: 1. Stable subcentimeter pulmonary nodules measuring up to 3 mm. No new pulmonary nodules. 2. Centrilobular emphysema 3. No thoracic lymphadenopathy Rib Matcher And Fitter: [facility]il[facility] Transcribe Date/Time: Aug 01 2024 12:29P Dictated by : AJN CHURCH MD This examination was interpreted and the report reviewed and electronically signed by: JAN CHURCH MD on Aug 01 2024 12:53PM EST [id number] Normal [facility] Absolute neutrophil countOrd ered By: Harley Quintana on 07-21-2024 Neutrophils (Bld) [#/Vol] 5.0 10*3/uL 2.0-7.7 [facility] Albumin to globulin ratioOrd ered By: Harley Quintana on 07-21-2024 Albumin/Globulin [Mass ratio] 1.2 {ratio} 0.9-2.4 [facility] Basophil percentageOrdered B y: Harley Quintana on 07-21-2024 Basophils/100 WBC (Bld) 0.4 % 0-1 [facility] Bilirubin Test strip Ql (U)O rdered By: Harley Quintana on 07-21-2024 Bilirubin Ql (U) Negative Negative [facility] Bilirubin, totalOrdered By: Harley Quintana on 07-21-2024 Bilirubin [Mass/Vol] 0.60 mg/dL 0.20-1.00 [facility] Comment on above: For patients on eltr ombopag therapy, use of Dimension [place] TBIL is not recommended. Blood urea nitrogen (BUN)/cr eatinine ratioOrdered By: Harley Quintana on 07-21-2024 Urea nitrogen/Creatinine [Mass ratio] 9.5 mg/mg Low 10-20 [facility] CBC W/Diff, Automatedon Absolute Lymph 1.66 X10 3/uL Normal 0.83-4.51 [facility] Comment on above: Performed By: #### L 400.0001 #### [facility] [address] [place], [address] Absolute Neut 5.0 X10 3/uL Normal 2.0-7.7 [facility] Comment on above: Performed By: #### L 400.0001 #### [facility] [address] [place], [address] Basophils/100 WBC (Bld) 0.4 % Normal 0-1 [facility] Comment on above: Performed By: #### L 400.0001 #### [facility] [address] [facility] [place], [address] Eosinophils/100 WBC (Bld) 2.9 % Normal 0-5 [facility] Comment on above: Performed By: #### L 400.0001 #### [facility] [address] [place], [address] Erythrocyte distribution width (RBC) [Ratio] 13.2 % Normal 11.6-14.6 [facility] Comment on above: Performed By: #### L 400.0001 #### [facility] [address] [place], [address] Hematocrit (Bld) [Volume fraction] 44.8 % Normal 40-54 [facility] Comment on above: Performed By: #### L 400.0001 #### [facility] [address] [place], [address] Hemoglobin (Bld) [Mass/Vol] 14.9 g/dL Normal 13.0-16.5 [facility] Comment on above: Performed By: #### L 400.0001 #### [facility] [address] [place], [address] IG% 0.300 Normal 0.0-0.9 [facility] Comment on above: Result Comment: IG% - Immature Granulocytes (promyelocytes, myelocytes and metamyelocytes) > 1% indicates that a LEFT SHIFT is Present. Performed By: #### L 400.0001 #### [facility] [address] [place], [address] Lymphocytes/100 WBC (Bld) 22.1 % Normal 19-41 [facility] Comment on above: Performed By: #### L 400.0001 #### [facility] [address] [place], [address] MCH (RBC) [Entitic mass] 30.0 pg Normal 27.0-32.0 [facility] Comment on above: Performed By: #### L 400.0001 #### [facility] [address] [place], [address] MCHC (RBC) [Mass/Vol] 33.3 g/dL Normal 32-36 [facility] Comment on above: Performed By: #### L 400.0001 #### [facility] [address] [place], [address] MCV (RBC) [Entitic vol] 90.3 fL Normal 80-94 [facility] Comment on above: Performed By: #### L 400.0001 #### [facility] [address] [place], [address] Monocytes/100 WBC (Bld) 8.4 % Normal 0-10 [facility] Comment on above: Performed By: #### L 400.0001 #### [facility] [address] [place], [address] Neutrophils/100 WBC (Bld) 65.9 % Normal 47-70 [facility] Comment on above: Performed By: #### L 400.0001 #### [facility] [address] [place], [address] Nucleated RBC (Bld) [#/Vol] 0 10*3/uL Normal 0-5 [facility] Comment on above: Performed By: #### L 400.0001 #### [facility] [address] [place], [address] Platelet mean volume (Bld) [Entitic vol] 10.2 fL Normal 6.2-12.0 [facility] Comment on above: Performed By: #### L 400.0001 #### [facility] [facility] [address] [place], [address] Platelets (Bld) [#/Vol] 176 10*3/uL Normal 150-450 [facility] Comment on above: Performed By: #### L 400.0001 #### [facility] [address] [place], [address] RBC (Bld) [#/Vol] 4.96 10*6/uL Normal 4.6-6.2 [facility] Comment on above: Performed By: #### L [id number] #### [facility] [address] [place], [address] RDW SD 43.7 fl Normal 35.1-43.9 [facility] Comment on above: Performed By: #### L [id number] #### [facility] [address] [place], [address] WBC (Bld) [#/Vol] 7.5 10*3/uL Normal 4.4-11.0 [facility] Comment on above: Performed By: #### L [id number] #### [facility] [address] [place], [address] Carbon dioxide measurementOr dered By: Harley Quintana on 07-21-2024 CO2 [Moles/Vol] 30.0 mmol/L 21.0-32.0 [facility] Chloride measurementOrdered By: Harley Quintana on 07-21-2024 Chloride [Moles/Vol] 109 mmol/L High 98-107 [facility] Comprehensive Metabolic Prof ilon 07-21-2024 Albumin [Mass/Vol] 3.6 g/dL Normal 3.2-5.0 [facility] Comment on above: Performed By: #### L [id number] #### [facility] [address] [place], [address] Albumin/Globulin [Mass ratio] 1.2 {ratio} Normal 0.9-2.4 [facility] Comment on above: Performed By: #### L [id number] #### [facility] [address] [place], [address] ALK P 89 U/L Normal 45-117 [facility] Comment on above: Performed By: #### L [id number] #### [facility] [address] [place], [address] ALT [Catalytic activity/Vol] 18 U/L Normal 16-61 [facility] Comment on above: Performed By: #### L [id number] #### [facility] [address] [place], [address] AST [Catalytic activity/Vol] 15 U/L Normal 15-37 [facility] Comment on above: Performed By: #### L [id number] #### [facility] [address] [place], [address] Bilirubin [Mass/Vol] 0.60 mg/dL Normal 0.20-1.00 [facility] Comment on above: Result Comment: For patients on eltrombopag therapy, use of Dimension [place] TBIL is not recommended. Performed By: #### L [id number] #### [facility] [address] [place], [id number] ([address] BUN/CRE 9.5 RATIO Low 10-20 [facility] Comment on above: Performed By: #### L [id number] #### [facility] [address] [place], [place], [id number] (105 CA,Total 8.9 mg/dL Normal 8.5-10.1 [facility] Comment on above: Performed By: #### L [id number] #### [facility] [address] [place], [address] Chloride [Moles/Vol] 109 mmol/L High 98-107 [facility] Comment on above: Performed By: #### L [id number] #### [facility] [address] [place], [address] CO2 [Moles/Vol] 30.0 mmol/L Normal 21.0-32.0 [facility] Comment on above: Performed By: #### L [id number] #### [facility] [address] [place], [address] Creatinine [Mass/Vol] 1.05 mg/dL Normal 0.70-1.30 [facility] Comment on above: Result Comment: The validity of the calculated GFR GFRAA in patients over 70 years has not been determined. Clinical correlation is essential. Performed By: #### L [id number] #### [facility] [address] [place], [address] ECRCL 60.83 ml/min Normal [facility] Comment on above: Performed By: #### L [id number] #### [facility] [address] [place], [address] EST GFR - AA 88 mL/min Normal >60 [facility] Comment on above: Result Comment: Afri can [place]an GFR Calc Performed By: #### L [id number] #### [facility] [address] [place], [address] GAP 4 Low 5-15 [facility] Comment on above: Performed By: #### L [id number] #### [facility] [address] [place], [address] GFR/1.73 sq M.predicted among non-blacks MDRD (S/P/Bld) [Vol rate/Area] 73 mL/min/{1.73_m2} Normal >60 [facility] Comment on above: Result Comment: Non- GFR Calc Performed By: #### L [id number] #### [facility] [address] [place], [address] Globulin (S) [Mass/Vol] 3.1 g/dL Normal 2.2-4.2 [facility] Comment on above: Performed By: #### L [id number] #### [facility] [address] [place], [address] Glucose [Mass/Vol] 95 mg/dL Normal 74-106 [facility] Comment on above: Performed By: #### L [id number] #### [facility] [address] [place], [address] Potassium [Moles/Vol] 3.9 mmol/L Normal 3.5-5.1 [facility] Comment on above: Performed By: #### L [id number] #### [facility] [address] [place], [place], [address] Sodium [Moles/Vol] 142 mmol/L Normal 136-145 [facility] Comment on above: Performed By: #### L [id number] #### [facility] [address] [place], [place], [id number] T PROT 6.7 g/dL Normal 6.4-8.2 [facility] Comment on above: Performed By: #### L [id number] #### [facility] [address] [place], [place], [id number] Urea nitrogen [Mass/Vol] 10 mg/dL Normal 7-18 [facility] Comment on above: Performed By: #### L [id number] #### [facility] [address] [place], [place], [id number] Emergency Department Summary on 07-21-2024 Emergency Department Summary [facility] Medical Records Department [address] [place] [address] Emergency Department Summary 07/21/24 MR#: [id number] Acct: [id number] Name: SHASHANK ESPINOZA Rep #: [id number] : 1945 79 From: Harley Quintana DO PCP: Dr. Yuval Dorantes MD Status:DEP ER Location: ED HPI HPI - GI History of Present Illness Chief Complaint: Diarrhea Informant: patient Abdominal Pain/Flank Pain Onset: Days Context: Gradual Onset Timing: Intermittent Quality: Cramping Location: Diffuse Worsened by: Nothing Relieved by: Nothing Nausea/Vomiting/Emesis GI Symptom: Negative for Nausea or Vomiting Diarrhea/Melena/Hematochez ia GI Symptom: Positive for Diarrhea; Negative for Melena or Hematochezia Onset: Days (5) Stool Quality: Positive for Watery Associated Symptoms Associated Symptoms: Positive for Frequency and Urgency; Negative for Dysuria or Hematuria Narrative Narrative: Patient presents with diarrhea and abdominal pain that has been getting worse for the last 5 days. Patient states he was scheduled for a CT scan today but then was referred to the emergency department because they felt he was too dehydrated. Patient states that he rescheduled his CT scan for next week. Patient states his diarrhea is watery. Patient states that every time he eats he gets diarrhea afterwards. Patient denies any nausea or vomiting. Patient admits to some subjective chills but denies any fevers. Patient admits to some urinary urgency and frequency. [facility] Medical History Coronary artery disease Former smoker Asthma COPD (chronic obstructive pulmonary disease) Hypertension Stroke/cerebrovascular accident TIA (transient ischemic attack) Thoracic aortic aneurysm without rupture ( 10/13/15) Claudication of both lower extremities Fatigue Nonruptured zhang aneurysm Snoring Hearing loss in left ear Disorder of bone and cartilage Anxiety Cerebellar atrophy Myocardial infarction, old History of hepatitis C Psychophysiological insomnia Depression Carotid artery occlusion ( 06/2011) Atherosclerosis of coronary artery of [place] heart without angina pectoris 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) Alopecia Essential hypertension Hypothyroidism Vertigo Hyperlipidemia Home Medications ???Medication ???Instructions ???Recorded ???Last Taken ???Type losartan 100 mg tablet 100 mg PO DAILY Blood pressure 10/14/15 01/23/24 History amlodipine 10 mg tablet 10 mg PO DAILY heart 12/04/18 01/23/24 History atorvastatin 40 mg tablet 40 mg PO QHS cholesterol 12/04/18 01/22/24 History famotidine 40 mg tablet 40 mg PO BID allergies 12/04/18 01/23/24 History levothyroxine 50 mcg tablet 50 mcg PO DAILY thyroid 12/04/18 01/23/24 History nitroglycerin 0.4 mg sublingual 0.4 mg sublingual Q5-15M PRN Chest 12/04/18 Unknown History tablet Pain fluticasone propionate 50 2 spray intranasal DAILY PRN 12/30/19 Unknown History mcg/actuation nasal seasonal allergies spray,suspension (Flonase Allergy Relief) trazodone 100 mg tablet 200 mg PO QHS for sleep 12/30/19 01/22/24 History clonazepam 1 mg tablet 1 mg PO BID PRN Insomnia 07/04/21 01/22/24 History aspirin 81 mg tablet,delayed 81 mg PO DAILY 07/11/22 Unknown History release (Adult Aspirin Regimen) albuterol sulfate 90 mcg/actuation 2 puff inhalation Q6H PRN 01/24/24 Unknown Rx aerosol inhaler shortness of breath or wheezing #8.5 grams azithromycin 500 mg tablet 500 mg PO DAILY 3 days #3 tabs 01/24/24 Unknown Rx (Zithromax) prednisone 20 mg tablet 20 mg PO BID #14 tabs 01/24/24 Unknown Rx Allergy/AdvReac Type Severity Reaction Status Date / Time No Known Allergies Allergy Verified 07/21/24 12:21 Family History Father CHF (congestive heart failure) Mother Cancer stomach Surgical History History of coronary artery stent placement Presence of stent in coronary artery History of hemorrhoidectomy Benign neoplasm of large bowel Social History Smoking Status: Former smoker how long ago did patient quit smokin years ago alcohol intake: never substance use type: does not use caffeine: Yes Type: coffee Number of servings: 5 ROS ROS ED Constitutional Constitutional ED: Reports chills; Denies fever(s) Eyes Eyes: Denies blurry vision or change in vision ENT ENT ED: Reports rhinorrhea and sore throat Cardiovascular Cardiovascular: Denies chest pain or palpitations Respiratory/Chest Respiratory/Chest: Reports cough; Denies dyspnea Gastrointestinal Gastrointestinal: Reports abdominal pain and diarrhea; Denies nausea or vomiting Genitourinary Genit (more content not included)... Normal [facility] Eosinophil percentageOrdered By: Harley Quintana on 07-21-2024 Eosinophils/100 WBC (Bld) 2.9 % 0-5 [facility] Epithelial cells.squamous LM Ql (Urine sed)Ordered By: Harley Quintana on 07-21-2024 Epithelial cells.squamous LM.HPF (Urine sed) [#/Area] 0 /[HPF] 0-5 [facility] Erythrocyte distribution wid th ratioOrdered By: Harley Quintana on 07-21-2024 Erythrocyte distribution width (RBC) [Ratio] 13.2 % 11.6-14.6 [facility] Erythrocyte distribution wid th standard deviationOrdered By: Harley Quintana on 07-21-2024 Erythrocyte distribution width (RBC) [Entitic vol] 43.7 fL 35.1-43.9 [facility] Estimated glomerular filtrat ion rate (GFR) AmericanOrdered By: Harley Quintana on 07-21-2024 Estimated GFR (MDRD) Amer 88 mL/min >60 [facility] Comment on above: GFR Calc Estimation of creatinine joceline aranceOrdered By: Harley Quintana on 07-21-2024 Estimated Creatinine Clearance Calc 60.83 ml/min [facility] Glomerular filtration rate ( GFR) estimationOrdered By: Harley Quintana on 07-21-2024 Estimated GFR (MDRD) Non-Af Amer 73 mL/min >60 [facility] Comment on above: Non- GFR Calc Glucose Ql (U)Ordered By: Guillermo Quintana on 07-21-2024 Urine Glucose (UA) Normal mg/dl Normal [facility] Glucose measurementOrdered B y: Harley Quintana on 07-21-2024 Glucose [Mass/Vol] 95 mg/dL 74-106 [facility] Hematocrit Auto (Bld) [Volum e fraction]Ordered By: Harley Quintana on 07-21-2024 Hematocrit (Bld) [Volume fraction] 44.8 % 40-54 [facility] Hemoglobin measurementOrdere d By: Harley Quintana on 07-21-2024 Hemoglobin (Bld) [Mass/Vol] 14.9 g/dL 13.0-16.5 [facility] Immature granulocytes/100 WB C Auto (Bld)Ordered By: Harley Quintana on 07-21-2024 Immature granulocytes/100 WBC (Bld) 0.300 % 0.0-0.9 [facility] Comment on above: IG% - Immature Granu locytes (promyelocytes, myelocytes and metamyelocytes) > 1% indicates that a LEFT SHIFT is Present. Ketones Test strip Ql (U)Ord ered By: Harley Quintana on 07-21-2024 Ketones Ql (U) Negative Negative [facility] - Chemistry and C hemistry - challengeOrdered By: Harley Quintana on 07-21-2024 AST [Catalytic activity/Vol] 15 U/L 15-37 [facility] Lymphocytes Auto (Unsp spec) [#/Vol]Ordered By: Harley Quintana on 07-21-2024 Lymphocytes (Bld) [#/Vol] 1.66 10*3/uL 0.83-4.51 [facility] Lymphocytes/100 WBC Auto (Un sp spec)Ordered By: Harley Quintana on 07-21-2024 Lymphocytes/100 WBC (Bld) 22.1 % 19-41 [facility] MCV (mean corpuscular volume ) determinationOrdered By: Harley Quintana on 07-21-2024 MCV (RBC) [Entitic vol] 90.3 fL 80-94 [facility] Mean corpuscular hemoglobin (MCH) determinationOrdered By: Harley Quintana on 07-21-2024 MCH (RBC) [Entitic mass] 30.0 pg 27.0-32.0 [facility] Mean corpuscular hemoglobin concentration (MCHC) determinationOrdered By: Harley Quintana on 07-21-2024 MCHC (RBC) [Mass/Vol] 33.3 g/dL 32-36 [facility] Mean platelet volume determi nationOrdered By: Harley Quintana on 07-21-2024 Platelet mean volume (Bld) [Entitic vol] 10.2 fL 6.2-12.0 [facility] Microscopic analysis of urin e for red blood cells (RBC)Ordered By: Harley Quintana on 07-21-2024 Urine RBC 0 SEEN /hpf 0-5 [facility] Monocyte percentageOrdered B y: Harley Quintana on 07-21-2024 Monocytes/100 WBC (Bld) 8.4 % 0-10 [facility] Mucus LM Ql (Urine sed)Order ed By: Harley Quintana on 07-21-2024 Mucus Ql (Urine sed) 0 SEEN /hpf [facility] Neutrophil percentageOrdered By: Harley Quintana on 07-21-2024 Neutrophils/100 WBC (Bld) 65.9 % 47-70 [facility] Nitrite Test strip Ql (U)Ord ered By: Harley Quintana on 07-21-2024 Nitrite Ql (U) Negative Negative [facility] Nucleated red blood cell per centageOrdered By: Harley Quintana on 07-21-2024 Nucleated RBC/100 WBC (Bld) [Ratio] 0 % 0-5 [facility] Platelet countOrdered By: Guillermo Quintana on 07-21-2024 Platelets (Bld) [#/Vol] 176 10*3/uL 150-450 [facility] Potassium measurementOrdered By: Harley Quintana on 07-21-2024 Potassium [Moles/Vol] 3.9 mmol/L 3.5-5.1 [facility] Protein Test strip Ql (U)Ord ered By: Harley Quintana on 07-21-2024 Protein Ql (U) Negative Negative [facility] RBC Auto (Bld) [#/Vol]Ordere d By: Harley Quintana on 07-21-2024 RBC (Bld) [#/Vol] 4.96 10*6/uL 4.6-6.2 [facility] Serum anion gap measurementO rdered By: Harley Quintana on 07-21-2024 Anion gap [Moles/Vol] 4 mmol/L Low 5-15 [facility] Serum globulin measurementOr dered By: Harley Quintana on 07-21-2024 Globulin (S) [Mass/Vol] 3.1 g/dL 2.2-4.2 [facility] Serum or plasma alanine aviles otransferase (ALT) measurementOrdered By: Harley Quintana on 07-21-2024 ALT [Catalytic activity/Vol] 18 U/L 16-61 [facility] Serum or plasma albumin marcel urement (mass/volume)Ordered By: Harley Quintana on 07-21-2024 Albumin [Mass/Vol] 3.6 g/dL 3.2-5.0 [facility] Serum or plasma alkaline lisset sphatase measurementOrdered By: Harley Quintana on 07-21-2024 ALP [Catalytic activity/Vol] 89 U/L 45-117 [facility] Serum or plasma calcium marcel urement (mass/volume)Ordered By: Harley Quintana on 07-21-2024 Calcium [Mass/Vol] 8.9 mg/dL 8.5-10.1 [facility] Serum or plasma creatinine m easurement (mass/volume)Ordered By: Harley Quintana on 07-21-2024 Creatinine [Mass/Vol] 1.05 mg/dL 0.70-1.30 [facility] Comment on above: The validity of the calculated GFR & GFRAA in patients over 70 years has not been determined. Clinical correlation is essential. Serum or plasma urea nitroge n measurement (mass/volume)Ordered By: Harley Quintana on 07-21-2024 Urea nitrogen [Mass/Vol] 10 mg/dL 7-18 [facility] Sodium levelOrdered By: Harley Quintana on 07-21-2024 Sodium [Moles/Vol] 142 mmol/L 136-145 [facility] Total proteinOrdered By: Arleth Quintana on 07-21-2024 Protein [Mass/Vol] 6.7 g/dL 6.4-8.2 [facility] Urinalysis, Completeon 07-21 WBC 0-5 SEEN Normal 0-5 [facility] Comment on above: Order Comment: CLEAN CATCH Performed By: #### L [id number] #### [facility] [address] [place], [address] BACTERIA 0 SEEN Normal None Seen [facility] Comment on above: Order Comment: CLEAN CATCH Performed By: #### L [id number] #### [facility] [address] [place], [address] EPI,SQUAMOUS 0 SEEN Normal 0-5 [facility] Comment on above: Order Comment: CLEAN CATCH Performed By: #### L [id number] #### [facility] [address] [place], [address] Mucus Ql (Urine sed) 0 SEEN Normal [facility] Comment on above: Order Comment: CLEAN CATCH Performed By: #### L [id number] #### [facility] [address] [place], [address] RBC 0 SEEN Normal 0-5 [facility] Comment on above: Order Comment: CLEAN CATCH Performed By: #### L [id number] #### [facility] [address] [place], [address] Urine blood detectionOrdered By: Harley Quintana on 07-21-2024 Urine Occult Blood 10 /ul High Negative [facility] Urine clarityOrdered By: Arleth Quintana on 07-21-2024 Clarity (U) Clear Clear [facility] Urine color determinationOrd ered By: Harley Quintana on 07-21-2024 Color (U) Yellow Yellow [facility] Urine leukocyte esterase det ection by dipstickOrdered By: Harley Quintana on 07-21-2024 Leukocyte esterase Test strip Ql (U) Negative Negative [facility] Urine pHOrdered By: Harley hodges on 07-21-2024 pH (U) 6.0 [pH] 5.0 - 8.0 [facility] Urine sediment bacteria coun t by microscopy (number/high power field)Ordered By: Harley Quintana on 07-21-2024 Bacteria LM.HPF (Urine sed) [#/Area] 0 /[HPF] None Seen [facility] Urine specific gravity measu rementOrdered By: Harley Quintana on 07-21-2024 Specific gravity (U) [Rel density] 1.010 1.002-1.030 [facility] Urobilinogen Ql (U)Ordered B y: Harley Quintana on 07-21-2024 Urine Urobilinogen Normal mg/dl Normal [facility] White blood cell (WBC) count Ordered By: Harley Quintana on 07-21-2024 WBC (Bld) [#/Vol] 7.5 10*3/uL 4.4-11.0 [facility] White blood cell countOrdere d By: Harley Quintana on 07-21-2024 Urine WBC 0-5 SEEN /hpf 0-5 [facility] CNPNon 07-17-2024 [facility] Telephone ([facility]) -- SHASHANK ESPINOZA ([id number]) 1945 M Date Time Provider Department 07/17/24 YUVAL DORANTES INTMWS During your visit today, we recorded the following information about you: Vikki Rocha 07/17/2024 1:36 PM Signed Pt came in wondering if his RSV shot would cause problems with his PSA or his upcoming biopsy? Please advise and contact patient. Yuval Dorantes MD 07/29/2024 4:37 PM Signed Will discuss at ER follow up 07/20 Allergies As of Date: 07/17/2024 Noted Allergy Reaction PRILOSEC (OMEPRAZOLE MAGNESIUM) 09/27/2010 14 - Other: See Comments Comments: GI upset Date Reviewed: 06/24/2024 Reviewed by: Maru Faulkner MA - Fully Assessed Reason for Visit: Patient Question [9023] Prescriptions as of 07/29/2024 - levothyroxine (SYNTHROID) 50 mcg tablet Take 1 tablet by mouth once daily. Except take 2 on Sunday ([facility]) - clonazePAM (KLONOPIN) 1 mg tablet Take 1 tablet by mouth daily at bedtime. May also take 1 tablet once daily as needed. Do all this for 90 days. Patient should start on July 18, 2024. - tiotropium-olodaterol (STIOLTO RESPIMAT) 2.5-2.5 mcg/actuation inhaler Inhale 2 Puffs as instructed once daily. - albuterol HFA (PROVENTIL HFA, VENTOLIN HFA) 90 mcg/actuation inhaler Inhale 2 Puffs as instructed every 4 hours as needed. - azithromycin (ZITHROMAX) 500 mg tablet Take 500 mg by mouth once daily. - ipratropium bromide (ATROVENT) 42 mcg (0.06 %) nasal spray Use 2 Sprays in the nose four times daily as needed. - fluticasone (FLONASE) 50 mcg/actuation nasal spray Use 2 Sprays in each nostril once daily as needed. Rinse mouth after use. - traZODone (DESYREL) 100 mg tablet Take 1-2 tablets by mouth daily at bedtime. ([facility]) - psyllium husk (KONSYL SUGAR-FREE) 6 gram/6 gram powd Take 1 Scoop by mouth once daily as needed. - nitroglycerin sublingual (NITROQUICK) 0.4 mg SL tablet Dissolve 1 tablet under the tongue as needed. FOR CHEST PAIN. IF NO RELIEF CALL 911 - docusate sodium (COLACE) 100 mg capsule Take 1 capsule by mouth twice daily as needed for Constipation. - atorvastatin (LIPITOR) 40 mg tablet Take 1 tablet by mouth once daily. For cholesterol. ([facility]) - famotidine (PEPCID) 40 mg tablet Take 1 tablet by mouth twice daily. - amLODIPine (NORVASC) 10 mg tablet Take 1 tablet by mouth once daily. (Particia Morton senior mechanical engineer increased dose--Dr. Cruz) - losartan (COZAAR) 100 mg tablet Take 1 tablet by mouth once daily. - Aspirin 81 mg ORAL Tab Take 81 mg by mouth once daily. Problem List As Of Date 07/17/2024 Noted Resolved Disorder of bone and cartilage [M89.9, M94.9] Depression [F32.A] Anxiety [F41.9] Chronic hepatitis C without mention of hepatic *05/08/2005 02/16/2016 ALOPECIA [704.0] 05/08/2005 INT HEMORRHOID W/O COMPL [K64.8] 05/08/2005 COLON POLYP [D12.6] 05/08/2005 ERECTILE DYSFUNCTION [F52.9] 05/08/2005 Hemorrhage of gastrointestinal tract, unspecifi*05/08/2005 02/17/2014 MALAISE AND FATIGUE NEC [R53.81, R53.83] 07/21/2005 PERS HX TOBACCO USE [Z87.891] 12/26/2005 Epidermal Cyst [L72.0] 07/13/2006 BENIGN MICHAEL SKIN FACE NEC [D23.30] 07/13/2006 XANTHALASMA///MIXED HYPERLIPIDEMIA [E78.2] 07/13/2006 XANTHELASMA [H02.60] 07/13/2006 ACNE NEC [L70.8] 07/13/2006 Open wound(s) (multiple) of unspecified site(s)*07/25/2006 09/19/2017 UNCERTAIN BEHAV NEOPL SKIN [D48.5] 08/24/2006 BENIGN MICHAEL SKIN EYELID [D23.10] 08/31/2006 MYALGIA AND MYOSITIS NOS [[id number]] 04/12/2007 ADJUSTMENT DISORDER WITH DEPRESSED MOOD [F43.21]12/13/2007 VIRAL WARTS NOS [B07.9] 10/20/2008 INSOMNIA NOS [G47.00] 11/03/2008 CHRONIC PAIN NEC [G89.29] 11/03/2008 Fatty liver [K76.0] 08/16/2009 02/17/2014 SUMMARY [V999.95] 08/30/2010 Chest pain [R07.9] 08/30/2010 Melena [K92.1] 08/30/2010 HLD (hyperlipidemia) [E78.5] 08/30/2010 Hypertension goal BP (blood pressure) < 140/90 *08/30/2010 CAD (coronary artery disease), [place] coronary *08/30/2010 S/P coronary artery stent placement [Z95.5] 08/30/2010 Acute gastritis without mention of hemorrhage [*10/10/2010 02/16/2016 Duodenitis without mention of hemorrhage [K29.8*10/10/2010 Sinus bradycardia [R00.1] 04/10/2011 Carotid artery occlusion, 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] History of aneurysm [Z86.79] Hypothyroidism [E03.9] Chronic constipation [K59.09] 10/22/2012 Hepatitis C, chronic (HCC) [B18.2] 11/18/2014 10/25/2015 Encounter for screening colonoscopy [Z12.11] 06/17/2015 Epigastric pain [R10.13] 06/17/2015 02/16/2016 Hyperlipidemia [E78.5] 10/05/2015 History of hepatitis C [Z86.19] 10/25/2015 02/16/2016 Burning sensation of toes [R20.8] 09/19/2017 Perianal wart [A63.0] 12/02/2020 Centrilobular emphysema (HCC) [J43.2] 09/25/2022 Encounter Status:Closed by VIKKI ROCHA on 07/28/24 [facility] CNOVon 06-24-2024 CNOV Office Visit (UROLWS ) -- SHASHANK ESPINOZA ([id number]) 1945 M Date Time Provider Department 06/24/24 1:00 PM PORSHA MEADOWS During your visit today, we recorded the following information about you: Pulse Blood pressure Weight 67/minute 128/78 74.8 kg Porsha Meadows PA-C 07/28/2024 7:48 PM Signed FORMERLY [facility] EST PATIENT CLINIC NOTE SERVICE DATE: June 24, 2024 NAME: Shashank Espinoza CHIEF COMPLAINT: Elevated PSA HISTORY OF PRESENT ILLNESS: Shashank Espinoza is a 79 year old male an established patient following up for Elevated PSA The patient reports he and his daughter are here to discuss recent elevated PSA and IsoPSA Review of the tests in detail and recommendation of prostate biopsy and will get this set up at [place] In the interm his PSA has increased, PSA 11.54 IsoPSA 13.4 % TPSA Results 8.760 LUTS: None currently LABS: PSA (ng/mL) Date Value 06/18/2024 11.54 12/12/2023 8.32 06/27/2022 5.84 11/30/2020 4.28 06/08/2020 5.0 02/08/2016 2.32 MEDICATIONS: levothyroxine (SYNTHROID) 50 mcg tablet Take 1 tablet by mouth once daily. Except take 2 on Sunday ([facility]) [START ON 07/18/2024] clonazePAM (KLONOPIN) 1 mg tablet Take 1 tablet by mouth daily at bedtime. May also take 1 tablet once daily as needed. Do all this for 90 days. Patient should start on July 18, 2024. tiotropium-olodaterol (STIOLTO RESPIMAT) 2.5-2.5 mcg/actuation inhaler Inhale 2 Puffs as instructed once daily. albuterol HFA (PROVENTIL HFA, VENTOLIN HFA) 90 mcg/actuation inhaler Inhale 2 Puffs as instructed every 4 hours as needed. ipratropium bromide (ATROVENT) 42 mcg (0.06 %) nasal spray Use 2 Sprays in the nose four times daily as needed. fluticasone (FLONASE) 50 mcg/actuation nasal spray Use 2 Sprays in each nostril once daily as needed. Rinse mouth after use. traZODone (DESYREL) 100 mg tablet Take 1-2 tablets by mouth daily at bedtime. ([facility]) psyllium husk (KONSYL SUGAR-FREE) 6 gram/6 gram powd Take 1 Scoop by mouth once daily as needed. nitroglycerin sublingual (NITROQUICK) 0.4 mg SL tablet Dissolve 1 tablet under the tongue as needed. FOR CHEST PAIN. IF NO RELIEF CALL 911 docusate sodium (COLACE) 100 mg capsule Take 1 capsule by mouth twice daily as needed for Constipation. atorvastatin (LIPITOR) 40 mg tablet Take 1 tablet by mouth once daily. For cholesterol. (From [place]) famotidine (PEPCID) 40 mg tablet Take 1 tablet by mouth twice daily. amLODIPine (NORVASC) 10 mg tablet Take 1 tablet by mouth once daily. 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 Cruz) losartan (COZAAR) 100 mg tablet Take 1 tablet by mouth once daily. Aspirin 81 mg ORAL Tab Take 81 mg by mouth once daily. azithromycin (ZITHROMAX) 500 mg tablet Take 500 mg by mouth once daily. 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 MRA 07/07/11 Anxiety state, unspecified Ascending aorta dilatation (HCC) 10/14/2015 CT Chest 4.5X3.96cm BENIGN NEOPLASM LG BOWEL 05/08/2005 colon polyps Benign prostatic hyperplasia with urinary retention CAD (coronary artery disease) 08/22/2010 s/p drug eluting stent placement (2) Carotid artery occlusion, right MRI 07/04/11; MRA 07/07/11 Centrilobular emphysema (HCC) 09/25/2022 Depressive disorder, not elsewhere classified Disorder of bone and cartilage, unspecified Elevated prostate specific antigen (PSA) Essential hypertension, benign GASTROINTEST HEMORR NOS 05/08/2005 Hearing loss in left ear Dr. 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 PHYSICAL EXAMINATION: Blood pressure 128/78, pulse 67, weight 74.8 kg (164 lb 12.8 oz), SpO2 95%. GENERAL: WNL nutrition, no deformities, healthy appearing PROBLEM LIST REVIEW: Yes LABS: Results for orders placed or performed in visit on 06/18/24 PSA/PROSTSPECAG DIAG Result Value Ref Range PSA 11.54 (H) <2.60 ng/mL ASSESSMENT/PLAN: 1. Elevated prostate specific antigen (PSA) - ICD9: 790.93, ICD10: R97.20 > IsoPSA -13.4% > PSA - 8.32 > Most recent PSA is 11.54 - PROSTATE BIOPSY GUKI - orders placed 1 New Condition: with unknown prognosis; with monitoring with labs and follow-up visits 1 Testing Recommendations: Ordered today; biopsy > Message sent for scheduling Prostate Biops (more content not included)... Normal [facility] Kishor 06-24-2024 CNPN Telephone (AKURFL) -- SHASHANK ESPINOZA ([id number]) 1945 M Date Time Provider Department 06/24/24 AN HENLEY JR AKURFL During your visit today, we recorded the following information about you: Mila Castillo 06/24/2024 2:24 PM Signed Left pt vm re: needs scheduled for prostate bx. Ref by Denilson Meadows for elev PSA. Mariangel Barbosa, ALBERT 06/26/2024 9:42 AM Signed Patient calling back to get set up. Evelyn will assist. Allergies As of Date: 06/24/2024 Noted Allergy Reaction PRILOSEC (OMEPRAZOLE MAGNESIUM) 09/27/2010 14 - Other: See Comments Comments: GI upset Date Reviewed: 06/24/2024 Reviewed by: Maru Faulkner MA - Fully Assessed Reason for Visit: Appointment [186] Prescriptions as of 06/26/2024 - levothyroxine (SYNTHROID) 50 mcg tablet Take 1 tablet by mouth once daily. Except take 2 on Sunday ([facility]) - clonazePAM (KLONOPIN) 1 mg tablet Take 1 tablet by mouth daily at bedtime. May also take 1 tablet once daily as needed. Do all this for 90 days. Patient should start on July 18, 2024. - tiotropium-olodaterol (STIOLTO RESPIMAT) 2.5-2.5 mcg/actuation inhaler Inhale 2 Puffs as instructed once daily. - albuterol HFA (PROVENTIL HFA, VENTOLIN HFA) 90 mcg/actuation inhaler Inhale 2 Puffs as instructed every 4 hours as needed. - azithromycin (ZITHROMAX) 500 mg tablet Take 500 mg by mouth once daily. - ipratropium bromide (ATROVENT) 42 mcg (0.06 %) nasal spray Use 2 Sprays in the nose four times daily as needed. - fluticasone (FLONASE) 50 mcg/actuation nasal spray Use 2 Sprays in each nostril once daily as needed. Rinse mouth after use. - traZODone (DESYREL) 100 mg tablet Take 1-2 tablets by mouth daily at bedtime. (Get through [place] now) - psyllium husk (KONSYL SUGAR-FREE) 6 gram/6 gram powd Take 1 Scoop by mouth once daily as needed. - nitroglycerin sublingual (NITROQUICK) 0.4 mg SL tablet Dissolve 1 tablet under the tongue as needed. FOR CHEST PAIN. IF NO RELIEF CALL 911 - docusate sodium (COLACE) 100 mg capsule Take 1 capsule by mouth twice daily as needed for Constipation. - atorvastatin (LIPITOR) 40 mg tablet Take 1 tablet by mouth once daily. For cholesterol. (From [place]) - famotidine (PEPCID) 40 mg tablet Take 1 tablet by mouth twice daily. - amLODIPine (NORVASC) 10 mg tablet Take 1 tablet by mouth once daily. 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 Cruz) - losartan (COZAAR) 100 mg tablet Take 1 tablet by mouth once daily. - Aspirin 81 mg ORAL Tab Take 81 mg by mouth once daily. Problem List As Of Date 06/24/2024 Noted Resolved Disorder of bone and cartilage [M89.9, M94.9] Depression [F32.A] Anxiety [F41.9] Chronic hepatitis C without mention of hepatic *05/08/2005 02/16/2016 ALOPECIA [704.0] 05/08/2005 INT HEMORRHOID W/O COMPL [K64.8] 05/08/2005 COLON POLYP [D12.6] 05/08/2005 ERECTILE DYSFUNCTION [F52.9] 05/08/2005 Hemorrhage of gastrointestinal tract, unspecifi*05/08/2005 02/17/2014 MALAISE AND FATIGUE NEC [R53.81, R53.83] 07/21/2005 PERS HX TOBACCO USE [Z87.891] 12/26/2005 Epidermal Cyst [L72.0] 07/13/2006 BENIGN MICHAEL SKIN FACE NEC [D23.30] 07/13/2006 XANTHALASMA///MIXED HYPERLIPIDEMIA [E78.2] 07/13/2006 XANTHELASMA [H02.60] 07/13/2006 ACNE NEC [L70.8] 07/13/2006 Open wound(s) (multiple) of unspecified site(s)*07/25/2006 09/19/2017 UNCERTAIN BEHAV NEOPL SKIN [D48.5] 08/24/2006 BENIGN MICHAEL SKIN EYELID [D23.10] 08/31/2006 MYALGIA AND MYOSITIS NOS [[id number]] 04/12/2007 ADJUSTMENT DISORDER WITH DEPRESSED MOOD [F43.21]12/13/2007 VIRAL WARTS NOS [B07.9] 10/20/2008 INSOMNIA NOS [G47.00] 11/03/2008 CHRONIC PAIN NEC [G89.29] 11/03/2008 Fatty liver [K76.0] 08/16/2009 02/17/2014 SUMMARY [V999.95] 08/30/2010 Chest pain [R07.9] 08/30/2010 Melena [K92.1] 08/30/2010 HLD (hyperlipidemia) [E78.5] 08/30/2010 Hypertension goal BP (blood pressure) < 140/90 *08/30/2010 CAD (coronary artery disease), [place] coronary *08/30/2010 S/P coronary artery stent placement [Z95.5] 08/30/2010 Acute gastritis without mention of hemorrhage [*10/10/2010 02/16/2016 Duodenitis without mention of hemorrhage [K29.8*10/10/2010 Sinus bradycardia [R00.1] 04/10/2011 Carotid artery occlusion, 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] History of aneurysm [Z86.79] Hypothyroidism [E03.9] Chronic constipation [K59.09] 10/22/2012 Hepatitis C, chronic (HCC) [B18.2] 11/18/2014 10/25/2015 Encounter for screening colonoscopy [Z12.11] 06/17/2015 Epigastric pain [R10.13] 06/17/2015 02/16/2016 Hyperlipidemia [E78.5] 10/05/2015 History of hepatitis C [Z86.19] 10/25/2015 02/16/2016 Burning sensation of toes [R20.8] 09/19/2017 Perianal wart [A63.0] 12/02/2020 Centrilobular emphysema (HCC) [J43.2] 09/25/2022 Encounter Status:Closed by MILA CASTILLO on 06/24/24 [facility] Kishor 06-19-2024 CHADN Telephone (UROLWS) -- SHASHANK ESPINOZA ([id number]) 1945 M Date Time Provider Department 06/19/24 PORSHA MEADOWS During your visit today, we recorded the following information about you: Leelee Lyon LPN 06/19/2024 10:57 AM Signed Called Enedelia patient's niece. No answer- left message to call clinic. Last annual with Porsha was 06/19/2023 but did see provider 01/01/2024 where a biopsy was ordered but not completed due to patient admitted to hospital related to COPD. Not rescheduled. Does patient request to keep appointment for Sunday to get updated plan or is patient wanting to get biopsy rescheduled? We are happy to see patient on Sunday but wanted to verify need for appointment if biopsy is still requested. FRANCISCO Tyler Kimberly, LPN 06/19/2024 12:19 PM Signed Enedelia returned call. Verified name and date of of patient. patient was nervous about doing the biopsy due to needing to do enema and then with hospital visit and summer patient put off rescheduling the biopsy. Now that winter is here patient is more concerned and does want to review recent PSA results and talk with provider about plan and getting biopsy rescheduled. Leelee Lyon LPN Allergies As of Date: 06/19/2024 Noted Allergy Reaction PRILOSEC (OMEPRAZOLE MAGNESIUM) 09/27/2010 14 - Other: See Comments Comments: GI upset Date Reviewed: 06/18/2024 Reviewed by: More Pearson LPN - Fully Assessed Reason for Visit: Orders [681] Appointment [186] Prescriptions as of 06/19/2024 - levothyroxine (SYNTHROID) 50 mcg tablet Take 1 tablet by mouth once daily. Except take 2 on Sunday ([facility]) - clonazePAM (KLONOPIN) 1 mg tablet Take 1 tablet by mouth daily at bedtime. May also take 1 tablet once daily as needed. Do all this for 90 days. Patient should start on July 18, 2024. - tiotropium-olodaterol (STIOLTO RESPIMAT) 2.5-2.5 mcg/actuation inhaler Inhale 2 Puffs as instructed once daily. - albuterol HFA (PROVENTIL HFA, VENTOLIN HFA) 90 mcg/actuation inhaler Inhale 2 Puffs as instructed every 4 hours as needed. - azithromycin (ZITHROMAX) 500 mg tablet Take 500 mg by mouth once daily. - ipratropium bromide (ATROVENT) 42 mcg (0.06 %) nasal spray Use 2 Sprays in the nose four times daily as needed. - fluticasone (FLONASE) 50 mcg/actuation nasal spray Use 2 Sprays in each nostril once daily as needed. Rinse mouth after use. - traZODone (DESYREL) 100 mg tablet Take 1-2 tablets by mouth daily at bedtime. ([facility]) - psyllium husk (KONSYL SUGAR-FREE) 6 gram/6 gram powd Take 1 Scoop by mouth once daily as needed. - nitroglycerin sublingual (NITROQUICK) 0.4 mg SL tablet Dissolve 1 tablet under the tongue as needed. FOR CHEST PAIN. IF NO RELIEF CALL 911 - docusate sodium (COLACE) 100 mg capsule Take 1 capsule by mouth twice daily as needed for Constipation. - atorvastatin (LIPITOR) 40 mg tablet Take 1 tablet by mouth once daily. For cholesterol. (From [place]) - famotidine (PEPCID) 40 mg tablet Take 1 tablet by mouth twice daily. - amLODIPine (NORVASC) 10 mg tablet Take 1 tablet by mouth once daily. ([place] senior mechanical engineer increased dose--Dr. Cruz) - losartan (COZAAR) 100 mg tablet Take 1 tablet by mouth once daily. - Aspirin 81 mg ORAL Tab Take 81 mg by mouth once daily. Problem List As Of Date 06/19/2024 Noted Resolved Disorder of bone and cartilage [M89.9, M94.9] Depression [F32.A] Anxiety [F41.9] Chronic hepatitis C without mention of hepatic *05/08/2005 02/16/2016 ALOPECIA [704.0] 05/08/2005 INT HEMORRHOID W/O COMPL [K64.8] 05/08/2005 COLON POLYP [D12.6] 05/08/2005 ERECTILE DYSFUNCTION [F52.9] 05/08/2005 Hemorrhage of gastrointestinal tract, unspecifi*05/08/2005 02/17/2014 MALAISE AND FATIGUE NEC [R53.81, R53.83] 07/21/2005 PERS HX TOBACCO USE [Z87.891] 12/26/2005 Epidermal Cyst [L72.0] 07/13/2006 BENIGN MICHAEL SKIN FACE NEC [D23.30] 07/13/2006 XANTHALASMA///MIXED HYPERLIPIDEMIA [E78.2] 07/13/2006 XANTHELASMA [H02.60] 07/13/2006 ACNE NEC [L70.8] 07/13/2006 Open wound(s) (multiple) of unspecified site(s)*07/25/2006 09/19/2017 UNCERTAIN BEHAV NEOPL SKIN [D48.5] 08/24/2006 BENIGN MICHAEL SKIN EYELID [D23.10] 08/31/2006 MYALGIA AND MYOSITIS NOS [[id number]] 04/12/2007 ADJUSTMENT DISORDER WITH DEPRESSED MOOD [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 Normal [facility] CNOVon 06-18-2024 CNOV Office Visit (INTMWS ) -- SHASHANK ESPINOZA ([id number]) 1945 M Date Time Provider Department 06/18/24 1:40 PM YUVAL DORANTES INTMWS During your visit today, we recorded the following information about you: Pulse Blood pressure Weight 68/minute 118/60 74 kg Yuval Dornates MD 07/30/2024 4:02 PM Addendum This note was created using NoteWriter. Subjective Shashank Espinoza is a 79 year old male. Patient presents with: Recheck SUBJECTIVE: Shashank Espinoza is a 79 year old year old gentleman here today for 4 month follow up appointment for review of medical conditions. Shashank Espinoza is a 79-year-old male with a history of COPD, HTN, and hypothyroidism, presenting for a 4-month follow-up. [facility] not [facility] results despite multiple requests. He has an upcoming appointment with PHYLLIS Montalvo, for prostate evaluation and is scheduled for lab work tomorrow. He inquires if he can complete the lab work today instead. He reports that his current COPD medication, Stiolto Respimat, prescribed by charging board operator Mae Patel in April, is effective. He has one inhaler left, which will last until June 25, and is concerned about refills. He also uses an albuterol inhaler and Atrovent nasal spray. He is scheduled to see Dr. Ulrich, charging board operator, in July. Shashank is taking multiple medications, including trazodone, nitroglycerin, losartan, and Synthroid. He confirms taking Synthroid 50 mcg daily, with a double dose on Mondays. He also takes clonazepam, recently refilled, and inquires about the number of refills available. He reports taking 1-1.5 tablets daily. He reports significant memory issues, including forgetting medication administration. Denies any problems with remembering family memebers' identities. He sleeps 7 hours nightly with the aid of clonazepam and trazodone. He denies symptoms of hyperthyroidism or hypothyroidism, such as palpitations, fatigue, unexplained weight loss, diarrhea, or constipation. He also denies engaging in regular exercise. 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 [facility]. 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 MRA 07/07/11 Anxiety state, unspecified Ascending aorta dilatation (HCC) 10/14/2015 CT Chest 4.5X3.96cm BENIGN NEOPLASM LG BOWEL 05/08/2005 colon polyps Benign prostatic hyperplasia with urinary retention CAD (coronary artery disease) 08/22/2010 s/p drug eluting stent placement (2) Carotid artery occlusion, right MRI 07/04/11; MRA 07/07/11 Centrilobular emphysema (HCC) 09/25/2022 Depressive disorder, not elsewhere classified Disorder of bone and cartilage, unspecified Elevated prostate specific antigen (PSA) Essential hypertension, benign GASTROINTEST HEMORR NOS 05/08/2005 Hearing loss in left ear Dr. 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 albuterol HFA (PROVENTIL HFA, VENTOLIN HFA) 90 mcg/actuation inhaler Inhale 2 Puffs as instructed every 4 hours as needed. clonazePAM (KLONOPIN) 1 mg tablet Take 1 tablet by mouth daily at bedtime. May also take 1 tablet once daily as needed. Do all this for 90 days. Do not start before February 19, 2024. ipratropium bromide (ATROVENT) 42 mcg (0.06 %) nasal spray Use 2 Sprays in the nose four times daily as needed. fluticasone (FLONASE) 50 mcg/actuation nasal spray Use 2 Sprays in each nostril once daily as needed. Rinse mouth after use. traZODone (DESYREL) 100 mg tablet Take 1-2 tablets by mouth daily at bedtime. ([facility]) psyllium husk (KONSYL SUGAR-FREE) 6 gram/6 gram powd Take 1 Scoop by mouth once daily as needed. nitroglycerin sublingual (NITROQUICK) 0.4 mg SL tablet Dissolve 1 tablet under the tongue as needed. FOR CHEST PAIN. IF NO RELIEF CALL 911 atorvastatin (LIPITOR) 40 mg tablet Take 1 tablet by mouth once daily. For [facility]. ([facility]) famotidine (PEPCID) 40 mg tablet Take 1 tablet by mouth twice daily. amLODIPine (NORVASC) 10 mg tablet Take 1 tablet by mouth once daily. ([place] (more content not included)... Normal [facility] PSA SerPl-mCncon 06-18-2024 Prostate specific Ag [Mass/Vol] 11.54 ng/mL High <2.60 [facility] Comment on above: Order Comment: Speci men Type: BLOOD SPECIMENOrdering Facility: [facility] Address: [address] [place] [address] Result Comment: Nicole garzon PSA test methodology used is the Electrochemiluminescence Immunoassay by [employer]. Total PSA values by differing methodologies cannot be interchanged. For an individual patient, the significance of a PSA level should be interpreted in a broad clinical context, including age, race, family history, digital rectal exam, prostate size, results of prior testing (prostate biopsy, free PSA, PCA3), and use of 5-alpha reductase inhibitors. Considering the high incidence of asymptomatic cancer in the general population that may not pose an ultimate risk to a patient, the decision to recommend urological evaluation or prostate biopsy should be individualized after consideration of all these factors. REFERENCE: Yudi Richmond M.D., M.P.H., Lopez Carl M.D., Ph.D., Rafael Plascencia M.D., Leelee Cooper, M.P.H., Mary Alice Jo, ScRicardo. Effect of Verification Bias on Screening for Prostate Cancer by Measurement of Prostatic Specific Antigen. N Engl J Med 2003,349:335-42. Performed By: #### 2 [id number] ####[facility] LABCLIA [id number] [address] [place] Kishor 04-17-2024 CNPN Telephone (PULMWS) -- OLGASHASHANK ([id number]) 1945 M Date Time Provider Department 04/17/24 MAE PATEL During your visit today, we recorded the following information about you: Shantel Kelley RN 04/17/2024 9:02 AM Signed Patient called in stating that he is able [facility] and they told him to not be concerned about the montes. Patient was very impressed and happy with his appointment. Shantel Kelley RN Allergies As of Date: 04/17/2024 Noted Allergy Reaction PRILOSEC (OMEPRAZOLE MAGNESIUM) 09/27/2010 14 - Other: See Comments Comments: GI upset Date Reviewed: 04/16/2024 Reviewed by: Mae Patel, ADRIANA.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 - Fully Assessed Reason for Visit: Patient Question [5987] Prescriptions as of 04/18/2024 - tiotropium-olodaterol (STIOLTO RESPIMAT) 2.5-2.5 mcg/actuation inhaler Inhale 2 Puffs as instructed once daily. - albuterol HFA (PROVENTIL HFA, VENTOLIN HFA) 90 mcg/actuation inhaler Inhale 2 Puffs as instructed every 4 hours as needed. - azithromycin (ZITHROMAX) 500 mg tablet Take 500 mg by mouth once daily. - clonazePAM (KLONOPIN) 1 mg tablet Take 1 tablet by mouth daily at bedtime. May also take 1 tablet once daily as needed. Do all this for 90 days. Do not start before February 19, 2024. - ipratropium bromide (ATROVENT) 42 mcg (0.06 %) nasal spray Use 2 Sprays in the nose four times daily as needed. - fluticasone (FLONASE) 50 mcg/actuation nasal spray Use 2 Sprays in each nostril once daily as needed. Rinse mouth after use. - traZODone (DESYREL) 100 mg tablet Take 1-2 tablets by mouth daily at bedtime. ([facility]) - psyllium husk (KONSYL SUGAR-FREE) 6 gram/6 gram powd Take 1 Scoop by mouth once daily as needed. - nitroglycerin sublingual (NITROQUICK) 0.4 mg SL tablet Dissolve 1 tablet under the tongue as needed. FOR CHEST PAIN. IF NO RELIEF CALL 911 - levothyroxine (SYNTHROID) 50 mcg tablet Currently taking 1 pill daily except 1 day a week takes 2 pills (Sunday) ([facility]; dose decreased to one pill [facility] by [facility]) - docusate sodium (COLACE) 100 mg capsule Take 1 capsule by mouth twice daily as needed for Constipation. - atorvastatin (LIPITOR) 40 mg tablet Take 1 tablet by mouth once daily. For cholesterol. (From [place]) - famotidine (PEPCID) 40 mg tablet Take 1 tablet by mouth twice daily. - amLODIPine (NORVASC) 10 mg tablet Take 1 tablet by mouth once daily. ([facility] senior mechanical engineer increased dose--Dr. Cruz) - losartan (COZAAR) 100 mg tablet Take 1 tablet by mouth once daily. - Aspirin 81 mg ORAL Tab Take 81 mg by mouth once daily. Problem List As Of Date 04/17/2024 Noted Resolved Disorder of bone and cartilage [M89.9, M94.9] Depression [F32.A] Anxiety [F41.9] Chronic hepatitis C without mention of hepatic *05/08/2005 02/16/2016 ALOPECIA [704.0] 05/08/2005 INT HEMORRHOID W/O COMPL [K64.8] 05/08/2005 COLON POLYP [D12.6] 05/08/2005 ERECTILE DYSFUNCTION [F52.9] 05/08/2005 Hemorrhage of gastrointestinal tract, unspecifi*05/08/2005 02/17/2014 MALAISE AND FATIGUE NEC [R53.81, R53.83] 07/21/2005 PERS HX TOBACCO USE [Z87.891] 12/26/2005 Epidermal Cyst [L72.0] 07/13/2006 BENIGN MICHAEL SKIN FACE NEC [D23.30] 07/13/2006 XANTHALASMA///MIXED HYPERLIPIDEMIA [E78.2] 07/13/2006 XANTHELASMA [H02.60] 07/13/2006 ACNE NEC [L70.8] 07/13/2006 Open wound(s) (multiple) of unspecified site(s)*07/25/2006 09/19/2017 UNCERTAIN BEHAV NEOPL SKIN [D48.5] 08/24/2006 BENIGN MICHAEL SKIN EYELID [D23.10] 08/31/2006 MYALGIA AND MYOSITIS NOS [[id number]] 04/12/2007 ADJUSTMENT DISORDER WITH DEPRESSED MOOD [F43.21]12/13/2007 VIRAL WARTS NOS [B07.9] 10/20/2008 INSOMNIA NOS [G47.00] 11/03/2008 CHRONIC PAIN NEC [G89.29] 11/03/2008 Fatty liver [K76.0] 08/16/2009 02/17/2014 SUMMARY [V999.95] 08/30/2010 Chest pain [R07.9] 08/30/2010 Melena [K92.1] 08/30/2010 HLD (hyperlipidemia) [E78.5] 08/30/2010 Hypertension goal BP (blood pressure) < 140/90 *08/30/2010 CAD (coronary artery disease), [place] coronary *08/30/2010 S/P coronary artery stent placement [Z95.5] 08/30/2010 Acute gastritis without mention of hemorrhage [*10/10/2010 02/16/2016 Duodenitis without mention of hemorrhage [K29.8*10/10/2010 Sinus bradycardia [R00.1] 04/10/2011 Carotid artery occlusion, 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] History of aneurysm [Z86.79] Hypothyroidism [E03.9] Chronic constipation [K59.09] 10/22/2012 Hepatitis C, chronic (HCC) [B18.2] 11/18/2014 10/25/2015 Encounter for screening colonoscopy [Z12.11] 06/17/2015 Epigastric pain [R10.13] 06/17/2015 02/16/2016 Hyperlipidemia [E78.5] 10/05/2015 History of hepatitis C [Z86.19] 10/25/2015 02/16/2016 Burning sensation of toes [R20.8] 09/19/2017 Perianal wart [A63.0] 12/02/2020 Centrilobular emphysema (HCC) [J43.2] 09/25/2022 Encounter Status:Closed by ANA BATISTA on 04/18/24 Normal [facility] CNOVon 04-16-2024 CNOV Office Visit (PULMWS ) -- SHASHANK ESPINOZA ([id number]) 1945 M Date Time Provider Department 04/16/24 10:00 AM MAE PATEL PULMWS During your visit today, we recorded the following information about you: Pulse Respiration Blood pressure Weight 64/minute 15/minute 102/64 73.9 kg Mae Patel APRN.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 04/16/2024 12:51 PM Signed Pulmonary Medicine Patients name: Shashank Espinoza PCP: Yuval Dorantes MD CC: COPD follow-up HPI: Shashank Espinoza is a 79 year old male former 23 pack year smoker, quitting in 2010 with PMH significant for anxiety/depression, CAD s/p stent, PAD, hypothyroidism, HLD, TIA, AAA, RLL lung nodule, and Emphysema. Hx alpha 1 antitrypsin level normal. Not in LCS program but does get annual chest CT d/t hx AAA. His December 2022 CT revealed a new RLL nodule. At his [facility] in October 2023, he denied respiratory symptoms despite known emphysema on imaging. He also previously had preserved PFT. He was admitted to [facility] in January for COPD exacerbation. He was discharged home with Azithromycin, Prednisone and PRN Albuterol. Following this hospitalization, he underwent updated PFT's which showed mild COPD and air trapping. Current therapy includes Spiriva Respimat and PRN Albuterol. Today, patient reports his breathing feels worse since starting Spiriva. He started the inhaler on 03/22 and since reports that he feels like he has to mouth breathe to get enough air. He doesn't recall if he had these symptoms after AECOPD in January. He messaged the office on 04/14 regarding symptoms and Stiolto was recommended. [facility] and [facility] being notified that a refill for Spiriva is coming in the mail. He also has a dry cough and has had it for years. Denies any sputum or hemoptysis. No wheezing. No dyspnea at rest. Has exertional dyspnea but is able to push through activity if needed. No other recent illnesses. No further hospitalizations or ED visits or upper respiratory infections. Denies GERD/reflux symptoms. 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 MRA 07/07/11 Anxiety state, unspecified Ascending aorta dilatation (HCC) 10/14/2015 CT Chest 4.5X3.96cm BENIGN NEOPLASM LG BOWEL 05/08/2005 colon polyps Benign prostatic hyperplasia with urinary retention CAD (coronary artery disease) 08/22/2010 s/p drug eluting stent placement (2) Carotid artery occlusion, right MRI 07/04/11; MRA 07/07/11 Centrilobular emphysema (HCC) 09/25/2022 Depressive disorder, not elsewhere classified Disorder of bone and cartilage, unspecified Elevated prostate specific antigen (PSA) Essential hypertension, benign GASTROINTEST HEMORR NOS 05/08/2005 Hearing loss in left ear Dr. 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 Treated 3 times (twice in 's); 3rd treatment effective Allergies: Prilosec [Omeprazol* Other: See Comments Comment:GI upset Medication List Accurate as of April 15, 2024 8:37 AM. If you have any questions, ask your nurse or doctor. CHANGE how you take these medications levothyroxine 50 mcg tablet Commonly known as: SYNTHROID Currently taking 1 pill daily except 1 day a week takes 2 pills (Sunday) ([facility]; dose [facility] to one pill daily by [facility] provider) What changed: additional instructions CONTINUE taking these medications albuterol HFA 90 mcg/actuation inhaler Commonly known as: PROVENTIL HFA, VENTOLIN HFA amLODIPine 10 mg tablet Commonly known as: NORVASC Take 1 tablet by mouth once daily. 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 Cruz) Aspirin 81 mg Tab atorvastatin 40 mg tablet Commonly known as: LIPITOR Take 1 tablet by mouth once daily. For cholesterol. (From [facility]) azithromycin 500 mg tablet Commonly known as: ZITHROMAX clonazePAM 1 mg tablet Commonly known as: KlonoPIN Take 1 tablet by mouth daily at bedtime. May also take 1 tablet once daily as needed. Do all this for 90 days. Do not start before February 19, 2024. docusate sodium 100 mg capsule Commonly known as: COLACE Take 1 capsule by mouth twice daily as needed for Constipation. famotidine 40 mg tablet Commonly known as: PEPCID Take 1 tablet by mouth twice daily. fluticasone 50 mcg/actuation nasal spray Commonly known as: FLONASE Use 2 Sprays in each nostril once daily as needed. Rinse mouth after use. ipratropium bromide 42 mcg (0.06 %) nasal spray Commonly known as: ATROVENT Use 2 Sprays in the nose four times daily as needed. KONSYL SUGAR-FREE 6 gram/6 gram Powd Generic drug: (more content not included)... [facility] SHASHANK ESPINOZA ([id number]) 1945 M Date Time Provider Department 04/14/24 GENNA CHENEY ENTR During your visit today, we recorded the following information about you: Venecia Becerra, ALBERT 04/14/2024 9:54 AM Signed Call received from Pt - name AND verified. Pt calls and reports that he started using Spiriva Respimat on 03/22/2024. Since that time, he reports my breathing doesn't feel like it's gotten any easier. Sometimes I have to open my mouth to breathe in order to feel like I am getting enough air. He reports taking 1 puff, waiting 10 minutes, and then taking the second puff. He denies having to use his Albuterol inhaler anymore than normal. He denies increase or new phlegm/sputum production but does endorse increased congestion and throat clearing. [facility] reports [facility], but I just want Dr. Ulrich to know this is happening in case she feels like another inhaler might be better for me. Please review and advise. Call Pt's cell phone for return correspondence. Venecia Becerra RN April 14, 2024 9:53 AM Carla Ulrich MD 04/14/2024 12:11 PM Signed Addended by: CARLA ULRICH on: 04/14/2024 12:11 PM Modules accepted: Ana Fournier LPN 04/14/2024 2:21 PM Signed Patient notified of med change. He may want script [facility] due to [facility]. Following our phone call, patient stopped by the office asking if he could move his annual follow up from October to Sunday. He would like to discuss sx and med change further. PSS to schedule. Ana Batista LPN Allergies As of Date: 04/14/2024 Noted Allergy Reaction PRILOSEC (OMEPRAZOLE MAGNESIUM) 09/27/2010 14 - Other: See Comments Comments: GI upset Date Reviewed: 03/04/2024 Reviewed by: Erasmo Sandoval RPFT - Fully Assessed Reason for Visit: Patient Question [6167] Order(s):tiotropium-olodat joaquina (STIOLTO RESPIMAT) 2.5-2.5 mcg/actuation inhalerInhale 2 Puffs as instructed once daily.Disp: 1 EachRfl: 5 Prescriptions as of 04/14/2024 - tiotropium-olodaterol (STIOLTO RESPIMAT) 2.5-2.5 mcg/actuation inhaler Inhale 2 Puffs as instructed once daily. - tiotropium bromide (SPIRIVA RESPIMAT) 2.5 mcg/actuation inhaler Inhale 2 Puffs as instructed once daily. - albuterol HFA (PROVENTIL HFA, VENTOLIN HFA) 90 mcg/actuation inhaler Inhale 2 Puffs as instructed every 4 hours as needed. - azithromycin (ZITHROMAX) 500 mg tablet Take 500 mg by mouth once daily. - clonazePAM (KLONOPIN) 1 mg tablet Take 1 tablet by mouth daily at bedtime. May also take 1 tablet once daily as needed. Do all this for 90 days. Do not start before February 19, 2024. - ipratropium bromide (ATROVENT) 42 mcg (0.06 %) nasal spray Use 2 Sprays in the nose four times daily as needed. - fluticasone (FLONASE) 50 mcg/actuation nasal spray Use 2 Sprays in each nostril once daily as needed. Rinse mouth after use. - traZODone (DESYREL) 100 mg tablet Take 1-2 tablets by mouth daily at bedtime. (Get through [place] now) - psyllium husk (KONSYL SUGAR-FREE) 6 gram/6 gram powd Take 1 Scoop by mouth once daily as needed. - nitroglycerin sublingual (NITROQUICK) 0.4 mg SL tablet Dissolve 1 tablet under the tongue as needed. FOR CHEST PAIN. IF NO RELIEF CALL 911 - levothyroxine (SYNTHROID) 50 mcg tablet Currently taking 1 pill daily except 1 day a week takes 2 pills (Sunday) ([facility]; dose decreased to one pill daily by [facility] provider) - docusate sodium (COLACE) 100 mg capsule Take 1 capsule by mouth twice daily as needed for Constipation. - atorvastatin (LIPITOR) 40 mg tablet Take 1 tablet by mouth once daily. For cholesterol. ([facility]) - famotidine (PEPCID) 40 mg tablet Take 1 tablet by mouth twice daily. - amLODIPine (NORVASC) 10 mg tablet Take 1 tablet by mouth once daily. 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 Cruz) - losartan (COZAAR) 100 mg tablet Take 1 tablet by mouth once daily. - Aspirin 81 mg ORAL Tab Take 81 mg by mouth once daily. 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, M94.9] Depression [F32.A] Anxiety [F41.9] Chronic hepatitis C without mention of hepatic *05/08/2005 02/16/2016 ALOPECIA [704.0] 05/08/2005 INT HEMORRHOID W/O COMPL [K64.8] 05/08/2005 COLON POLYP [D12.6] 05/08/2005 ERECTILE DYSFUNCTION [F52.9] 05/08/2005 Hemorrhage of gastrointestinal tract, unspecifi*05/08/2005 02/17/2014 MALAISE AND FATIGUE NEC [R53.81, R53.83] 07/21/2005 PERS HX TOBACCO USE [Z87.891] 12/26/2005 Epidermal Cyst [L72.0] 07/13/2006 BENIGN MICHAEL SKIN FACE NEC [D23.30] 07/13/2006 XANTHALASMA///MIXED HYPERLIPIDEMIA [E78.2] 07/13/2006 XANTHELASMA [H02.60] 07/13/2006 ACNE NEC [L70.8] 07/13/2006 Open wound(s) (multiple) of unspecified site(s)*07/25/2006 09/19/2017 UNCERTAIN BEHAV NEOPL SKIN [D48.5] 08/24/2006 BENIGN MICHAEL SKIN EYELID [D23. (more content not included)... Normal [facility] CNPNon 03-14-2024 CNPN Telephone (PULMWS) -- SHASHNAK ESPINOZA ([id number]) 1945 M Date Time Provider Department 03/14/24 CARLA ULRICH PULMWS During your visit today, we recorded the following information about you: Allergies As of Date: 03/14/2024 Noted Allergy Reaction PRILOSEC (OMEPRAZOLE MAGNESIUM) 09/27/2010 14 - Other: See Comments Comments: GI upset Date Reviewed: 03/04/2024 Reviewed by: Erasmo Sandoval RPFT - Fully Assessed Reason for Visit: Orders [681] Cmt: Need to move chest CT up. New nodule on outside chest CT Primary Visit Diagnosis:Lung nodules [R91.8] Other Visit Diagnosis:Centrilobular emphysema (HCC) [J43.2] Order(s):CT CHEST SOFIA ENG [[id number]] Order #: [id number] FUTURE Prescriptions as of 03/14/2024 - tiotropium bromide (SPIRIVA RESPIMAT) 2.5 mcg/actuation inhaler Inhale 2 Puffs as instructed once daily. - albuterol HFA (PROVENTIL HFA, VENTOLIN HFA) 90 mcg/actuation inhaler Inhale 2 Puffs as instructed every 4 hours as needed. - azithromycin (ZITHROMAX) 500 mg tablet Take 500 mg by mouth once daily. - clonazePAM (KLONOPIN) 1 mg tablet Take 1 tablet by mouth daily at bedtime. May also take 1 tablet once daily as needed. Do all this for 90 days. Do not start before February 19, 2024. - ipratropium bromide (ATROVENT) 42 mcg (0.06 %) nasal spray Use 2 Sprays in the nose four times daily as needed. - fluticasone (FLONASE) 50 mcg/actuation nasal spray Use 2 Sprays in each nostril once daily as needed. Rinse mouth after use. - traZODone (DESYREL) 100 mg tablet Take 1-2 tablets by mouth daily at bedtime. (Get through [place] now) - psyllium husk (KONSYL SUGAR-FREE) 6 gram/6 gram powd Take 1 Scoop by mouth once daily as needed. - nitroglycerin sublingual (NITROQUICK) 0.4 mg SL tablet Dissolve 1 tablet under the tongue as needed. FOR CHEST PAIN. IF NO RELIEF CALL 911 - levothyroxine (SYNTHROID) 50 mcg tablet Currently taking 1 pill daily except 1 day a week takes 2 pills (Sunday) ([facility]; dose decreased to one pill daily by [facility] provider) - docusate sodium (COLACE) 100 mg capsule Take 1 capsule by mouth twice daily as needed for Constipation. - atorvastatin (LIPITOR) 40 mg tablet Take 1 tablet by mouth once daily. For cholesterol. (From [place]) - famotidine (PEPCID) 40 mg tablet Take 1 tablet by mouth twice daily. - amLODIPine (NORVASC) 10 mg tablet Take 1 tablet by mouth once daily. 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 Cruz) - losartan (COZAAR) 100 mg tablet Take 1 tablet by mouth once daily. - Aspirin 81 mg ORAL Tab Take 81 mg by mouth once daily. 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, M94.9] Depression [F32.A] Anxiety [F41.9] Chronic hepatitis C without mention of hepatic *05/08/2005 02/16/2016 ALOPECIA [704.0] 05/08/2005 INT HEMORRHOID W/O COMPL [K64.8] 05/08/2005 COLON POLYP [D12.6] 05/08/2005 ERECTILE DYSFUNCTION [F52.9] 05/08/2005 Hemorrhage of gastrointestinal tract, unspecifi*05/08/2005 02/17/2014 MALAISE AND FATIGUE NEC [R53.81, R53.83] 07/21/2005 PERS HX TOBACCO USE [Z87.891] 12/26/2005 Epidermal Cyst [L72.0] 07/13/2006 BENIGN MICHAEL SKIN FACE NEC [D23.30] 07/13/2006 XANTHALASMA///MIXED HYPERLIPIDEMIA [E78.2] 07/13/2006 XANTHELASMA [H02.60] 07/13/2006 ACNE NEC [L70.8] 07/13/2006 Open wound(s) (multiple) of unspecified site(s)*07/25/2006 09/19/2017 UNCERTAIN BEHAV NEOPL SKIN [D48.5] 08/24/2006 BENIGN MICHAEL SKIN EYELID [D23.10] 08/31/2006 MYALGIA AND MYOSITIS NOS [[id number]] 04/12/2007 ADJUSTMENT DISORDER WITH DEPRESSED MOOD [F43.21]12/13/2007 VIRAL WARTS NOS [B07.9] 10/20/2008 INSOMNIA NOS [G47.00] 11/03/2008 CHRONIC PAIN NEC [G89.29] 11/03/2008 Fatty liver [K76.0] 08/16/2009 02/17/2014 SUMMARY [V999.95] 08/30/2010 Chest pain [R07.9] 08/30/2010 Melena [K92.1] 08/30/2010 HLD (hyperlipidemia) [E78.5] 08/30/2010 Hypertension goal BP (blood pressure) < 140/90 *08/30/2010 CAD (coronary artery disease), [place] coronary *08/30/2010 S/P coronary artery stent placement [Z95.5] 08/30/2010 Acute gastritis without mention of hemorrhage [*10/10/2010 02/16/2016 Duodenitis without mention of hemorrhage [K29.8*10/10/2010 Sinus bradycardia [R00.1] 04/10/2011 Carotid artery occlusion, 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] History of aneurysm [Z86.79] Hypothyroidism [E03.9] Chronic constipation [K59.09] 10/22/2012 Hepatitis C, chronic (HCC) [B18.2] 11/18/2014 10/25/2015 Encounter for screening colonoscopy [Z12.11] 06/17/2015 Epigastric pain [R10.13] 06/17/2015 02/16/2016 Hyperlipidemia [E78.5] 10/05/2015 History of hepatitis C [Z86.19] 10/25/2015 02/16/2016 Burning sensation of toes [R20.8] 09/19/2017 Perianal wart [A63.0] 12/02/2020 Centrilobular emphysema (HCC) [J43.2] 09/25/2022 Encounter Status:Closed by CARLA ULRICH on 03/14/24 [facility]20[facility] OLGASHASHANK Juan ([id number]) 1945 M Date Time Provider Department 03/12/24 CARLA ULRICH During your visit today, we recorded the following information about you: Ira Ellis, ALBERT 03/12/2024 8:18 AM Signed Enedelia Espinal called. She wanted to make sure that Dr. Ulrich had the CT scan and chest xray results from Shashank's admission in January to [facility]. View External Imaging - Chest xray @[facility] during admission [ID [id number]] View External Imaging - CT chest w/o contrast @[facility] during admission [ID [id number]] ALBERT Burgos Kathleen, LPN 03/19/2024 1:01 PM Signed Addended by: ANA BATISTA on: 03/19/2024 01:01 PM Modules accepted: Orders Genna Cheney PA-C 03/19/2024 3:49 PM Signed Addended by: GENNA CHENEY on: 03/19/2024 03:49 PM Modules accepted: Orders Allergies As of Date: 03/12/2024 Noted Allergy Reaction PRILOSEC (OMEPRAZOLE MAGNESIUM) 09/27/2010 14 - Other: See Comments Comments: GI upset Date Reviewed: 03/04/2024 Reviewed by: Erasmo Sandoval RPFT - Fully Assessed Reason for Visit: Results [95] Primary Visit Diagnosis:Centrilobular emphysema (HCC) [J43.2] Order(s):tiotropium bromide (SPIRIVA RESPIMAT) 2.5 mcg/actuation inhalerInhale 2 Puffs as instructed once daily.Disp: 3 EachRfl: 3 Prescriptions as of 03/19/2024 - tiotropium bromide (SPIRIVA RESPIMAT) 2.5 mcg/actuation inhaler Inhale 2 Puffs as instructed once daily. - albuterol HFA (PROVENTIL HFA, VENTOLIN HFA) 90 mcg/actuation inhaler Inhale 2 Puffs as instructed every 4 hours as needed. - azithromycin (ZITHROMAX) 500 mg tablet Take 500 mg by mouth once daily. - clonazePAM (KLONOPIN) 1 mg tablet Take 1 tablet by mouth daily at bedtime. May also take 1 tablet once daily as needed. Do all this for 90 days. Do not start before February 19, 2024. - ipratropium bromide (ATROVENT) 42 mcg (0.06 %) nasal spray Use 2 Sprays in the nose four times daily as needed. - fluticasone (FLONASE) 50 mcg/actuation nasal spray Use 2 Sprays in each nostril once daily as needed. Rinse mouth after use. - traZODone (DESYREL) 100 mg tablet Take 1-2 tablets by mouth daily at bedtime. (Get through [place] now) - psyllium husk (KONSYL SUGAR-FREE) 6 gram/6 gram powd Take 1 Scoop by mouth once daily as needed. - nitroglycerin sublingual (NITROQUICK) 0.4 mg SL tablet Dissolve 1 tablet under the tongue as needed. FOR CHEST PAIN. IF NO RELIEF CALL 911 - levothyroxine (SYNTHROID) 50 mcg tablet Currently taking 1 pill daily except 1 day a week takes 2 pills (Sunday) ([facility]; dose decreased to one pill daily by [facility] provider) - docusate sodium (COLACE) 100 mg capsule Take 1 capsule by mouth twice daily as needed for Constipation. - atorvastatin (LIPITOR) 40 mg tablet Take 1 tablet by mouth once daily. For cholesterol. (From [place]) - famotidine (PEPCID) 40 mg tablet Take 1 tablet by mouth twice daily. - amLODIPine (NORVASC) 10 mg tablet Take 1 tablet by mouth once daily. ([place] Mason senior mechanical engineer increased dose--Dr. Cruz) - losartan (COZAAR) 100 mg tablet Take 1 tablet by mouth once daily. - Aspirin 81 mg ORAL Tab Take 81 mg by mouth once daily. Problem List As Of Date 03/12/2024 Noted Resolved Disorder of bone and cartilage [M89.9, M94.9] Depression [F32.A] Anxiety [F41.9] Chronic hepatitis C without mention of hepatic *05/08/2005 02/16/2016 ALOPECIA [704.0] 05/08/2005 INT HEMORRHOID W/O COMPL [K64.8] 05/08/2005 COLON POLYP [D12.6] 05/08/2005 ERECTILE DYSFUNCTION [F52.9] 05/08/2005 Hemorrhage of gastrointestinal tract, unspecifi*05/08/2005 02/17/2014 MALAISE AND FATIGUE NEC [R53.81, R53.83] 07/21/2005 PERS HX TOBACCO USE [Z87.891] 12/26/2005 Epidermal Cyst [L72.0] 07/13/2006 BENIGN MICHAEL SKIN FACE NEC [D23.30] 07/13/2006 XANTHALASMA///MIXED HYPERLIPIDEMIA [E78.2] 07/13/2006 XANTHELASMA [H02.60] 07/13/2006 ACNE NEC [L70.8] 07/13/2006 Open wound(s) (multiple) of unspecified site(s)*07/25/2006 09/19/2017 UNCERTAIN BEHAV NEOPL SKIN [D48.5] 08/24/2006 BENIGN MICHAEL SKIN EYELID [D23.10] 08/31/2006 MYALGIA AND MYOSITIS NOS [[id number]] 04/12/2007 ADJUSTMENT DISORDER WITH DEPRESSED MOOD [F43.21]12/13/2007 VIRAL WARTS NOS [B07.9] 10/20/2008 INSOMNIA NOS [G47.00] 11/03/2008 CHRONIC PAIN NEC [G89.29] 11/03/2008 Fatty liver [K76.0] 08/16/2009 02/17/2014 SUMMARY [V999.95] 08/30/2010 Chest pain [R07.9] 08/30/2010 Melena [K92.1] 08/30/2010 HLD (hyperlipidemia) [E78.5] 08/30/2010 Hypertension goal BP (blood pressure) < 140/90 *08/30/2010 CAD (coronary artery disease), [place] coronary *08/30/2010 S/P coronary artery stent placement [Z95.5] 08/30/2010 Acute gastritis without mention of hemorrhage [*10/10/2010 02/16/2016 Duodenitis without mention of hemorrhage [K29.8*10/10/2010 Sinus bradycardia [R00.1] 04/10/2011 Carotid artery occlusion, 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 Normal [facility] 03-11-2024 CNPN Telephone (PULMWS) -- SHASHANK ESPINOZA ([id number]) 1945 M Date Time Provider Department 03/11/24 CARLA ULRICH PULMWS During your visit today, we recorded the following information about you: Carole Cota RN 03/11/2024 9:07 AM Signed Patient Update for Dr. Ulrich: Patient had 3 lung tests recently completed; lung volumes, lung diffusion capacity and spirometry, as ordered by Dr. Dorantes. Patient has been given Dr. Dorantes' response to the results. Patient has been reminded to follow up with Dr. Ulrich in Pulmonary in one year ([facility] 2024), as recommended this past October. Of note, patient's Chest CT completed 10/31/23 showed stable small nodules and pt was recommended by Dr. Ulrich to have repeat CT in 1 year. Please notify patient if Dr. Ulrich has other recommendations based on his recent lung volume results, if necessary. ALBERT Perry, Carla Wright MD 03/14/2024 4:28 PM Signed Addended by: CARLA ULRICH on: 03/14/2024 04:28 PM Modules accepted: Orders Allergies As of Date: 03/11/2024 Noted Allergy Reaction PRILOSEC (OMEPRAZOLE MAGNESIUM) 09/27/2010 14 - Other: See Comments Comments: GI upset Date Reviewed: 03/04/2024 Reviewed by: Erasmo Sandoval RPFT - Fully Assessed Order(s):tiotropium bromide (SPIRIVA RESPIMAT) 2.5 mcg/actuation inhalerInhale 2 Puffs as instructed once daily.Disp: 1 EachRfl: 5 Prescriptions as of 03/14/2024 - tiotropium bromide (SPIRIVA RESPIMAT) 2.5 mcg/actuation inhaler Inhale 2 Puffs as instructed once daily. - albuterol HFA (PROVENTIL HFA, VENTOLIN HFA) 90 mcg/actuation inhaler Inhale 2 Puffs as instructed every 4 hours as needed. - azithromycin (ZITHROMAX) 500 mg tablet Take 500 mg by mouth once daily. - clonazePAM (KLONOPIN) 1 mg tablet Take 1 tablet by mouth daily at bedtime. May also take 1 tablet once daily as needed. Do all this for 90 days. Do not start before February 19, 2024. - ipratropium bromide (ATROVENT) 42 mcg (0.06 %) nasal spray Use 2 Sprays in the nose four times daily as needed. - fluticasone (FLONASE) 50 mcg/actuation nasal spray Use 2 Sprays in each nostril once daily as needed. Rinse mouth after use. - traZODone (DESYREL) 100 mg tablet Take 1-2 tablets by mouth daily at bedtime. (Get through [place] now) - psyllium husk (KONSYL SUGAR-FREE) 6 gram/6 gram powd Take 1 Scoop by mouth once daily as needed. - nitroglycerin sublingual (NITROQUICK) 0.4 mg SL tablet Dissolve 1 tablet under the tongue as needed. FOR CHEST PAIN. IF NO RELIEF CALL 911 - levothyroxine (SYNTHROID) 50 mcg tablet Currently taking 1 pill daily except 1 day a week takes 2 pills (Sunday) ([facility]; dose decreased to one pill daily by [facility] provider) - docusate sodium (COLACE) 100 mg capsule Take 1 capsule by mouth twice daily as needed for Constipation. - atorvastatin (LIPITOR) 40 mg tablet Take 1 tablet by mouth once daily. For cholesterol. (From [place]) - famotidine (PEPCID) 40 mg tablet Take 1 tablet by mouth twice daily. - amLODIPine (NORVASC) 10 mg tablet Take 1 tablet by mouth once daily. 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 Cruz) - losartan (COZAAR) 100 mg tablet Take 1 tablet by mouth once daily. - Aspirin 81 mg ORAL Tab Take 81 mg by mouth once daily. Problem List As Of Date 03/11/2024 Noted Resolved Disorder of bone and cartilage [M89.9, M94.9] Depression [F32.A] Anxiety [F41.9] Chronic hepatitis C without mention of hepatic *05/08/2005 02/16/2016 ALOPECIA [704.0] 05/08/2005 INT HEMORRHOID W/O COMPL [K64.8] 05/08/2005 COLON POLYP [D12.6] 05/08/2005 ERECTILE DYSFUNCTION [F52.9] 05/08/2005 Hemorrhage of gastrointestinal tract, unspecifi*05/08/2005 02/17/2014 MALAISE AND FATIGUE NEC [R53.81, R53.83] 07/21/2005 PERS HX TOBACCO USE [Z87.891] 12/26/2005 Epidermal Cyst [L72.0] 07/13/2006 BENIGN MICHAEL SKIN FACE NEC [D23.30] 07/13/2006 XANTHALASMA///MIXED HYPERLIPIDEMIA [E78.2] 07/13/2006 XANTHELASMA [H02.60] 07/13/2006 ACNE NEC [L70.8] 07/13/2006 Open wound(s) (multiple) of unspecified site(s)*07/25/2006 09/19/2017 UNCERTAIN BEHAV NEOPL SKIN [D48.5] 08/24/2006 BENIGN MICHAEL SKIN EYELID [D23.10] 08/31/2006 MYALGIA AND MYOSITIS NOS [[id number]] 04/12/2007 ADJUSTMENT DISORDER WITH DEPRESSED MOOD [F43.21]12/13/2007 VIRAL WARTS NOS [B07.9] 10/20/2008 INSOMNIA NOS [G47.00] 11/03/2008 CHRONIC PAIN NEC [G89.29] 11/03/2008 Fatty liver [K76.0] 08/16/2009 02/17/2014 SUMMARY [V999.95] 08/30/2010 Chest pain [R07.9] 08/30/2010 Melena [K92.1] 08/30/2010 HLD (hyperlipidemia) [E78.5] 08/30/2010 Hypertension goal BP (blood pressure) < 140/90 *08/30/2010 CAD (coronary artery disease), [place] coronary *08/30/2010 S/P coronary artery stent placement [Z95.5] 08/30/2010 Acute gastritis without mention of hemorrhage [*10/10/2010 02/16/2016 Duodenitis without mention of hemorrhage [K29.8*10/10/2010 Sinus bradycardia [R00.1] 09 (more content not included)... Normal [facility] Kishor 03-07-2024 CNPN Telephone (INTMWS) -- SHASHANK ESPINOZA ([id number]) 1945 M Date Time Provider Department 03/07/24 YUVAL DORANTES INTMWS During your visit today, we recorded the following information about you: Tamara MurrayFRANCISCO 03/07/2024 2:28 PM Signed Patient calling asking for his lung test results, were done Sunday. He can see results in his my chart but does not understand what it says. Please advise Yuval Dorantes MD 03/07/2024 7:32 PM Signed Noted that comparison was not made to one done at [facility] but no recommendation was made for follow u. However, the comment states that if he has risk factors for lung malignancy, should recheck in a year. Can radiology obtain the CT from [facility] for comparison to see if still needs follow up in year? Noted that Dr. Ulrich had ordered this study but no follow up appointment made. Can let patient know that there were small nodules seen like last year but no mention that it was compared to last year. Will be having the radiologist compare to last year's CT if they can. Dr. Ulrich will also check results and we can see what she recommends for next follow up(if any) with CT scan. Carole Cota RN 03/10/2024 10:18 AM Addendum Contacted patient and given Dr. Dorantes' message below, as copied: Can let patient know that there were small nodules seen like last year but no mention that it was compared to last year. Will be having the radiologist compare to last year's CT if they can. Dr. Ulrich will also check results and we can see what she recommends for next follow up(if any) with CT scan. 2. Patient asking for results of his recent 3 lung tests ( lung volumes, lung diffusion capacity and spirometry) be sent to him via Giving Assistant using layman's terms, please. 3. If PCP office could please address PCP's request from below, also: Can radiology obtain the CT from [facility] for comparison to see if still needs follow up in year? Please call patient with any questions or updates. Thank you. Yuval Dorantes MD 03/10/2024 9:51 PM Signed I just went back in the chart and saw that Dr. Ulrich had already addressed the results of the October CT scan and sent patient a MyChart message that the nodule were stable and recommended follow up in a year (so October 2024)--there was a Giving Assistant message that was sent 11/07/23. I had only looked at the CT report and did not see a result note. She had sent him a Akdemiahart message instead of a result note. Reason I did not her that she had addressed it. Okay if radiologist does not do the comparison since Dr. Ulrich already saw that the nodules were stable and made recommendation for follow up next year. According to the Giving Assistant message, he read the results already on 11/09/23--see if he can find the Giving Assistant message to review The recent 3 lung tests summarized below: The test showed possible mild obstruction so that goes along with the last spirometry which had shown mild small airways obstruction. No improvement with giving a breathing treatment. He has lung volumes that are increased (hyperinflation with air trapping) that is consistent with his diagnosis of emphysema. Reduced diffusing capacity (ability to exchange carbon dioxide and oxygen) with mild obstruction goes along with diagnosis of emphysema. Carole Cota RN 03/11/2024 8:58 AM Signed Patient update/FYI: Patient called, and message below was reviewed. Pt verbalized understanding and will share this with his niece Enedelia, who has been helpful to him. Giving Assistant message also sent to patient today, with PCP's summarization of his recent 3 lung test results, as pt requested. Patient also reminded to follow up with Dr. Ulrich in 1 year (October 2024), as advised by Dr. Ulrich in October 2023. Will send message to Dr. Ulrich of results of recent 3 lung tests as well, and Dr. Ulrich to offer any other recommendations as needed. See Telephone Note 03/08/24. Carole Cota RN Allergies As of Date: 03/07/2024 Noted Allergy Reaction PRILOSEC (OMEPRAZOLE MAGNESIUM) 09/27/2010 14 - Other: See Comments Comments: GI upset Date Reviewed: 03/04/2024 Reviewed by: Erasmo Sandoval RPFT - Fully Assessed Reason for Visit: lung testing results [Other] Prescriptions as of 03/12/2024 - albuterol HFA (PROVENTIL HFA, VENTOLIN HFA) 90 mcg/actuation inhaler Inhale 2 Puffs as instructed every 4 hours as needed. - azithromycin (ZITHROMAX) 500 mg tablet Take 500 mg by mouth once daily. - clonazePAM (KLONOPIN) 1 mg tablet Take 1 tablet by mouth daily at bedtime. May also take 1 tablet once daily as needed. Do all this for 90 days. Do not start before February 19, 2024. - ipratropium bromide (ATROVENT) 42 mcg (0.06 %) nasal spray Use 2 Sprays in the nose four times daily as needed. - fluticasone (FLONASE) 50 mcg/actuation nasal spray Use 2 Sprays in each nostril once amanda (more content not included)... Normal [facility] CNOVon 03-05-2024 CNOV Office Visit (INTMWS ) -- SHASHANK ESPINOZA ([id number]) 1945 M Date Time Provider Department 03/05/24 10:00 AM MINOO CASANOVAWS During your visit today, we recorded the following information about you: More Pearson LPN 03/05/2024 10:05 AM Signed Patient states he did not need to see the provider. Just needed a script for handicap placstone. Script has been signed and given to patient. No charge for today's appointment. Referring Provider: SELF [[id number]] Allergies As of Date: 03/05/2024 Noted Allergy Reaction PRILOSEC (OMEPRAZOLE MAGNESIUM) 09/27/2010 14 - Other: See Comments Comments: GI upset Date Reviewed: 03/04/2024 Reviewed by: Erasmo Sandoval RPFT - Fully Assessed Primary Visit Diagnosis:Centrilobular emphysema (HCC) [J43.2] Prescriptions as of 03/05/2024 - albuterol HFA (PROVENTIL HFA, VENTOLIN HFA) 90 mcg/actuation inhaler Inhale 2 Puffs as instructed every 4 hours as needed. - azithromycin (ZITHROMAX) 500 mg tablet Take 500 mg by mouth once daily. - clonazePAM (KLONOPIN) 1 mg tablet Take 1 tablet by mouth daily at bedtime. May also take 1 tablet once daily as needed. Do all this for 90 days. Do not start before February 19, 2024. - ipratropium bromide (ATROVENT) 42 mcg (0.06 %) nasal spray Use 2 Sprays in the nose four times daily as needed. - fluticasone (FLONASE) 50 mcg/actuation nasal spray Use 2 Sprays in each nostril once daily as needed. Rinse mouth after use. - traZODone (DESYREL) 100 mg tablet Take 1-2 tablets by mouth daily at bedtime. (Get through [place] now) - psyllium husk (KONSYL SUGAR-FREE) 6 gram/6 gram powd Take 1 Scoop by mouth once daily as needed. - nitroglycerin sublingual (NITROQUICK) 0.4 mg SL tablet Dissolve 1 tablet under the tongue as needed. FOR CHEST PAIN. IF NO RELIEF CALL 911 - levothyroxine (SYNTHROID) 50 mcg tablet Currently taking 1 pill daily except 1 day a week takes 2 pills (Sunday) ([facility]; dose [facility] to one [facility] daily by [facility]) - docusate sodium (COLACE) 100 mg capsule Take 1 capsule by mouth twice daily as needed for Constipation. - atorvastatin (LIPITOR) 40 mg tablet Take 1 tablet by mouth once daily. For cholesterol. ([facility]) - famotidine (PEPCID) 40 mg tablet Take 1 tablet by mouth twice daily. - amLODIPine (NORVASC) 10 mg tablet Take 1 tablet by mouth once daily. ([place] Mason senior mechanical engineer increased dose--Dr. Cruz) - losartan (COZAAR) 100 mg tablet Take 1 tablet by mouth once daily. - Aspirin 81 mg ORAL Tab Take 81 mg by mouth once daily. Problem List As Of Date 03/05/2024 Noted Resolved Disorder of bone and cartilage [M89.9, M94.9] Depression [F32.A] Anxiety [F41.9] Chronic hepatitis C without mention of hepatic *05/08/2005 02/16/2016 ALOPECIA [704.0] 05/08/2005 INT HEMORRHOID W/O COMPL [K64.8] 05/08/2005 COLON POLYP [D12.6] 05/08/2005 ERECTILE DYSFUNCTION [F52.9] 05/08/2005 Hemorrhage of gastrointestinal tract, unspecifi*05/08/2005 02/17/2014 MALAISE AND FATIGUE NEC [R53.81, R53.83] 07/21/2005 PERS HX TOBACCO USE [Z87.891] 12/26/2005 Epidermal Cyst [L72.0] 07/13/2006 BENIGN MICHAEL SKIN FACE NEC [D23.30] 07/13/2006 XANTHALASMA///MIXED HYPERLIPIDEMIA [E78.2] 07/13/2006 XANTHELASMA [H02.60] 07/13/2006 ACNE NEC [L70.8] 07/13/2006 Open wound(s) (multiple) of unspecified site(s)*07/25/2006 09/19/2017 UNCERTAIN BEHAV NEOPL SKIN [D48.5] 08/24/2006 BENIGN MICHAEL SKIN EYELID [D23.10] 08/31/2006 MYALGIA AND MYOSITIS NOS [[id number]] 04/12/2007 ADJUSTMENT DISORDER WITH DEPRESSED MOOD [F43.21]12/13/2007 VIRAL WARTS NOS [B07.9] 10/20/2008 INSOMNIA NOS [G47.00] 11/03/2008 CHRONIC PAIN NEC [G89.29] 11/03/2008 Fatty liver [K76.0] 08/16/2009 02/17/2014 SUMMARY [V999.95] 08/30/2010 Chest pain [R07.9] 08/30/2010 Melena [K92.1] 08/30/2010 HLD (hyperlipidemia) [E78.5] 08/30/2010 Hypertension goal BP (blood pressure) < 140/90 *08/30/2010 CAD (coronary artery disease), [place] coronary *08/30/2010 S/P coronary artery stent placement [Z95.5] 08/30/2010 Acute gastritis without mention of hemorrhage [*10/10/2010 02/16/2016 Duodenitis without mention of hemorrhage [K29.8*10/10/2010 Sinus bradycardia [R00.1] 04/10/2011 Carotid artery occlusion, 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] History of aneurysm [Z86.79] Hypothyroidism [E03.9] Chronic constipation [K59.09] 10/22/2012 Hepatitis C, chronic (HCC) [B18.2] 11/18/2014 10/25/2015 Encounter for screening colonoscopy [Z12.11] 06/17/2015 Epigastric pain [R10.13] 06/17/2015 02/16/2016 Hyperlipidemia [E78.5] 10/05/2015 History of hepatitis C [Z86.19] 10/25/2015 02/16/2016 Burning sensation of toes [R20.8] 09/19/2017 Perianal wart [A63.0] 12/02/2020 Centrilobular emphysema (HCC) [J43.2] 09/25/2022 Letter Text Encounter Status:Closed by MORE PEARSON on 03/05/24 Normal [facility] No Panel Informationon 03-04 DLCO (ml/min/mmHg) 16.96 ml/min/mmHg [facility] DLCO/VA (ml/min/mmHg/L) 2.57 ml/min/mmHg /L [facility] ERV BOX (L) 0.91 L [facility] JGM26-05% POST (L/S) 1.00 L/S [facility] DOW38-73% PRE (L/S) 1.08 L/S [facility] FEV1 PRE (L) 3.04 L [facility] FEV1/FVC POST (%) 59 % [facility] FEV1/FVC PRE (%) 57 % [facility] FEV1_POST (L) 3.13 L [facility] FRC Box (L) 4.34 L [facility] FVC POST (L) 5.28 L [facility] FVC PRE (L) 5.24 L [facility] IC BOX (L) 3.52 L [facility] PEF POST (L/S) 6.33 L/S [facility] PEF PRE (L/S) 5.71 L/S [facility] RV Box (L) 3.28 L [facility] RV/TLC Box (%) 42 % [facility] TLC Box (L) 7.72 L [facility] VA (L) 6.59 L [facility] VC (L) BOX 4.60 L [facility] [address] [place] [address] Test Date: 2024-03-04 Pat Name: SHASHANK ESPINOZA Department: Room: Gender: Male 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 TGV is repeatable. closed shutter rate is higher than ATS/ERS guidelines on all but 2 trials. The two largest FVCs were repeatable. The two largest FEV1s were repeatable. Time to Peak Flow greater than ATS/ERS standard, FEV1 may not be valid. IMPRESSION: Spirometry reveals a reduced FEV1/FVC with normal FEV1 and FVC values. This could reflect a normal presentation or could indicate mild obstruction. Clinical correlation recommended. Negative bronchodilator response. Lung volumes (FRC and/or RV) are elevated indicating hyperinflation and air trapping. The diffusing capacity (uncorrected for hemoglobin) is reduced. Electronically Signed On 03-04-2024 16:38:39 EDT by Carla Ulrich MD ID: [id number] Name: SHASHANK ESPINOZA Race: White Ht: 68.45 in Wt: 164.00 lbs Age: 79 Gender: Male : 1945 Dx: Acute bronchitis, unspecified organism_ Smoking Hx: Non-smoker Doctor: YUVAL DORANTES Test Date: 03/04/2024 Site: [facility] Tech: Erasmo Sandoval PRE-BRONCH POST-BRONCH Pre LLN Pred ULN %Pred Post %Pred %Chg SPIROMETRY FVC (L) 5.24 2.69 3.64 4.61 144 5.28 145 1 FEV1 (L) 3.04 1.96 2.71 3.41 112 3.13 115 3 FEV1/FVC 0.58 0.62 0.76 0.87 76 0.59 77 2 PEF L/s (L/sec) 5.71 5.02 7.23 9.45 78 6.33 87 10 FEF50 (L/sec) 1.83 1.40 3.53 5.65 51 1.61 45 -11 FIF50 (L/sec) 4.45 3.97 -10 FEF50/FIF50 0.41 90-100 0.41 -1 FIVC (L) 4.88 4.60 -5 DPK56-70 (L/sec) 1.08 0.81 2.06 3.87 52 1.00 48 -6 Time (sec) 16.13 15.79 -2 FET PEF (sec) 0.18 0.16 -9 DARIO (L) 0.15 0.22 46 Vol Extrap % (%) 3 4 45 LUNG VOLUMES TGV (L) 4.34 2.43 3.61 4.79 120 ERV (L) 0.91 1.21 74 RV (Pleth) (L) 3.28 1.90 2.51 3.13 130 SVC (L) 4.60 2.69 3.64 4.61 126 IC (L) 3.52 2.43 144 TLC (Pleth) (L) 7.72 5.43 6.74 8.04 114 RV/TLC (Pleth) (%) 42 31 38 45 112 LUNG DIFFUSION DLCOunc (ml/min/mmHg) 16.96 13.92 23.85 33.79 71 VA (L) 6.59 5.16 6.52 7.89 101 DLunc/VA (ml/min/mmHg/L) 2.57 2.60 3.80 5.00 67 BHT (sec) 10.05 IVC (L) 4.82 Comments: Current ATS/ERS acceptability and repeatability standards for DLCO met with 2 acceptable maneuvers. TGV is repeatable. closed shutter rate is higher than ATS/ERS guidelines on all but 2 trials. The two largest FVCs were repeatable. The two largest FEV1s were repeatable. Time to Peak Flow greater than ATS/ERS standard, FEV1 may not be valid. PULMONARY FUNCTION LAB [facility] CNOVon 01-31-2024 CNOV Office Visit (INTMWS ) -- SHASHANK ESPINOZA ([id number]) 1945 M Date Time Provider Department 01/31/24 3:00 PM YUVAL DORANTES INTMWS During your visit today, we recorded the following information about you: Temperature Pulse Respiration Blood pressure 97.9 degrees 57/minute 12/minute 134/66 Weight Height 73 kg 1.727 m Yuval Dorantes MD 03/09/2024 9:05 PM Signed This note was created using GROUNDFLOORriter. Subjective Shashank Espinoza is a 79 year old male. Patient presents with: Follow Up: follow up- COPD and constipation- no BM since 01/24/24, c/o clammy and gittery after inhaler and completed prednisone SUBJECTIVE: Shashank Espinoza is a 79 year old year old gentleman here today for follow up appointment for review of medical conditions. Prostate issues noted. COPD diagnosis questioned. Treated as COPD exacerbation based on CXR showing hyperinflation. No prior diagnosis COPD with PFTs. Was given inhaler for COPD at the hospital. Also prednisone 20 mg 2 daily for 7 days and Zithromycin 500mg daily for 3 days. Chills are better, Inhaler is working--albuterol. A couple times daily. Some mild SANDHU noted worse with aging. Constipation: No BM since discharged a week ago. Bough something OTC but on label said not to take if over 55 without consulting with doctor. Fleets enema. Feels like cannot go at all. No pain in bottom and no pain in abdomen, In the past had constipation before. Psyllium tried and not helping. Already taking daily then increased to 2 daily. 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 MRA 07/07/11 Anxiety state, unspecified Ascending aorta dilatation (HCC) 10/14/2015 CT Chest 4.5X3.96cm BENIGN NEOPLASM LG BOWEL 05/08/2005 colon polyps Benign prostatic hyperplasia with urinary retention CAD (coronary artery disease) 08/22/2010 s/p drug eluting stent placement (2) Carotid artery occlusion, right MRI 07/04/11; MRA 07/07/11 Centrilobular emphysema (HCC) 09/25/2022 Depressive disorder, not elsewhere classified Disorder of bone and cartilage, unspecified Elevated prostate specific antigen (PSA) Essential hypertension, benign GASTROINTEST HEMORR NOS 05/08/2005 Hearing loss in left ear Dr. 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 azithromycin (ZITHROMAX) 500 mg tablet Take 500 mg by mouth once daily. predniSONE (DELTASONE) 20 mg tablet Take 20 mg by mouth two times a day. clonazePAM (KLONOPIN) 1 mg tablet Take 1 tablet by mouth daily at bedtime. May also take 1 tablet once daily as needed. Do all this for 90 days. ipratropium bromide (ATROVENT) 42 mcg (0.06 %) nasal spray Use 2 Sprays in the nose four times daily as needed. fluticasone (FLONASE) 50 mcg/actuation nasal spray Use 2 Sprays in each nostril once daily as needed. Rinse mouth after use. traZODone (DESYREL) 100 mg tablet Take 1-2 tablets by mouth daily at bedtime. ([facility]) psyllium husk (KONSYL SUGAR-FREE) 6 gram/6 gram powd Take 1 Scoop by mouth once daily as needed. nitroglycerin sublingual (NITROQUICK) 0.4 mg SL tablet Dissolve 1 tablet under the tongue as needed. FOR CHEST PAIN. IF NO RELIEF CALL 911 levothyroxine (SYNTHROID) 50 mcg tablet Currently taking 1 pill daily except 1 day a week takes 2 pills (Sunday) ([facility]; dose decreased to one pill daily by [facility] provider) (Patient taking differently: Currently taking 1 pill daily except 1 day a week takes 2 pills on Sunday) docusate sodium (COLACE) 100 mg capsule Take 1 capsule by mouth twice daily as needed for Constipation. (Patient not taking: Reported on 01/01/2024) atorvastatin (LIPITOR) 40 mg tablet Take 1 tablet by mouth once daily. For cholesterol. ([facility]) famotidine (PEPCID) 40 mg tablet Take 1 tablet by mouth twice daily. amLODIPine (NORVASC) 10 mg tablet Take 1 tablet by mouth once daily. 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 Cruz) losartan (COZAAR) 100 mg tablet Take 1 tablet by mouth once daily. Aspirin 81 mg ORAL Tab Take 81 mg by mouth once daily. No current facility-administered medications for this visit. Review of Systems Objective BP 134/66 (BP Site: Right Arm, BP Position: Sitting, BP Cuff Size: Regular Adult) Pulse (!) 57 Temp 36.6 ?C (97.9 ?F) Resp 12 Ht 172.7 cm (5' 8) Wt 73 kg (161 lb) SpO2 (more content not included)... [facility] SHASHANK ESPINOZA ([id number]) 1945 M Date Time Provider Department 01/25/24 KETAN SCHULZ During your visit today, we recorded the following information about you: Mae Verduzco 01/25/2024 10:05 AM Signed Niece called to notify us that patient was admitted into the hospital for a COPD flare-up and accidentally took his levoflexan instead of the zithromicin. Biopsy needs rescheduled and she will call back when she is with the patient so they can get it rescheduled and a new script for levoflexan will need to be written. Allergies As of Date: 01/25/2024 Noted Allergy Reaction PRILOSEC (OMEPRAZOLE MAGNESIUM) 09/27/2010 14 - Other: See Comments Comments: GI upset Date Reviewed: 01/01/2024 Reviewed by: Meadows, Porsha, PA-C - Fully Assessed Reason for Visit: Patient Update [1234] Prescriptions as of 02/29/2024 - albuterol HFA (PROVENTIL HFA, VENTOLIN HFA) 90 mcg/actuation inhaler Inhale 2 Puffs as instructed every 4 hours as needed. - azithromycin (ZITHROMAX) 500 mg tablet Take 500 mg by mouth once daily. - clonazePAM (KLONOPIN) 1 mg tablet Take 1 tablet by mouth daily at bedtime. May also take 1 tablet once daily as needed. Do all this for 90 days. Do not start before February 19, 2024. - ipratropium bromide (ATROVENT) 42 mcg (0.06 %) nasal spray Use 2 Sprays in the nose four times daily as needed. - fluticasone (FLONASE) 50 mcg/actuation nasal spray Use 2 Sprays in each nostril once daily as needed. Rinse mouth after use. - traZODone (DESYREL) 100 mg tablet Take 1-2 tablets by mouth daily at bedtime. (Get through [place] now) - psyllium husk (KONSYL SUGAR-FREE) 6 gram/6 gram powd Take 1 Scoop by mouth once daily as needed. - nitroglycerin sublingual (NITROQUICK) 0.4 mg SL tablet Dissolve 1 tablet under the tongue as needed. FOR CHEST PAIN. IF NO RELIEF CALL 911 - levothyroxine (SYNTHROID) 50 mcg tablet Currently taking 1 pill daily except 1 day a week takes 2 pills (Sunday) ([facility]; dose decreased to one pill daily by [facility] provider) - docusate sodium (COLACE) 100 mg capsule Take 1 capsule by mouth twice daily as needed for Constipation. - atorvastatin (LIPITOR) 40 mg tablet Take 1 tablet by mouth once daily. For cholesterol. ([facility]) - famotidine (PEPCID) 40 mg tablet Take 1 tablet by mouth twice daily. - amLODIPine (NORVASC) 10 mg tablet Take 1 tablet by mouth once daily. 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 Cruz) - losartan (COZAAR) 100 mg tablet Take 1 tablet by mouth once daily. - Aspirin 81 mg ORAL Tab Take 81 mg by mouth once daily. Problem List As Of Date 01/25/2024 Noted Resolved Disorder of bone and cartilage [M89.9, M94.9] Depression [F32.A] Anxiety [F41.9] Chronic hepatitis C without mention of hepatic *05/08/2005 02/16/2016 ALOPECIA [704.0] 05/08/2005 INT HEMORRHOID W/O COMPL [K64.8] 05/08/2005 COLON POLYP [D12.6] 05/08/2005 ERECTILE DYSFUNCTION [F52.9] 05/08/2005 Hemorrhage of gastrointestinal tract, unspecifi*05/08/2005 02/17/2014 MALAISE AND FATIGUE NEC [R53.81, R53.83] 07/21/2005 PERS HX TOBACCO USE [Z87.891] 12/26/2005 Epidermal Cyst [L72.0] 07/13/2006 BENIGN MICHAEL SKIN FACE NEC [D23.30] 07/13/2006 XANTHALASMA///MIXED HYPERLIPIDEMIA [E78.2] 07/13/2006 XANTHELASMA [H02.60] 07/13/2006 ACNE NEC [L70.8] 07/13/2006 Open wound(s) (multiple) of unspecified site(s)*07/25/2006 09/19/2017 UNCERTAIN BEHAV NEOPL SKIN [D48.5] 08/24/2006 BENIGN MICHAEL SKIN EYELID [D23.10] 08/31/2006 MYALGIA AND MYOSITIS NOS [[id number]] 04/12/2007 ADJUSTMENT DISORDER WITH DEPRESSED MOOD [F43.21]12/13/2007 VIRAL WARTS NOS [B07.9] 10/20/2008 INSOMNIA NOS [G47.00] 11/03/2008 CHRONIC PAIN NEC [G89.29] 11/03/2008 Fatty liver [K76.0] 08/16/2009 02/17/2014 SUMMARY [V999.95] 08/30/2010 Chest pain [R07.9] 08/30/2010 Melena [K92.1] 08/30/2010 HLD (hyperlipidemia) [E78.5] 08/30/2010 Hypertension goal BP (blood pressure) < 140/90 *08/30/2010 CAD (coronary artery disease), [place] coronary *08/30/2010 S/P coronary artery stent placement [Z95.5] 08/30/2010 Acute gastritis without mention of hemorrhage [*10/10/2010 02/16/2016 Duodenitis without mention of hemorrhage [K29.8*10/10/2010 Sinus bradycardia [R00.1] 04/10/2011 Carotid artery occlusion, 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] History of aneurysm [Z86.79] Hypothyroidism [E03.9] Chronic constipation [K59.09] 10/22/2012 Hepatitis C, chronic (HCC) [B18.2] 11/18/2014 10/25/2015 Encounter for screening colonoscopy [Z12.11] 06/17/2015 Epigastric pain [R10.13] 06/17/2015 02/16/2016 Hyperlipidemia [E78.5] 10/05/2015 History of hepatitis C [Z86.19] 10/25/2015 02/16/2016 Burning sensation of toes [R20.8] 09/19/2017 Perianal wart [A63.0] 12/02/2020 Centrilobular emphysema (HCC) [J43.2] 09/25/2022 Encounter Status:Closed by MAE VERDUZCO on 02/29/24 Normal [facility] Basic Metabolic Profile (BMP )on 01-24-2024 BUN/CRE 14.3 RATIO Normal - [facility] Comment on above: Performed By: #### L 501.5200, L100.0100, L501.2300, L500.2500 #### [facility] [address] [place], [address] CA,Total 9.2 mg/dL Normal 8.5-10.1 [facility] Comment on above: Performed By: #### L 501.5200, L100.0100, L501.2300, L500.2500 #### [facility] [address] [place], [address] Chloride [Moles/Vol] 109 mmol/L High 98-107 [facility] Comment on above: Performed By: #### L 501.5200, L100.0100, L501.2300, L500.2500 #### [facility] [address] [place], [address] CO2 [Moles/Vol] 24.0 mmol/L Normal 21.0-32.0 [facility] Comment on above: Performed By: #### L 501.5200, L100.0100, L501.2300, L500.2500 #### [facility] [address] [place], [address] Creatinine [Mass/Vol] 1.12 mg/dL Normal 0.70-1.30 [facility] Comment on above: Result Comment: The validity of the calculated GFR GFRAA in patients over 70 years has not been determined. Clinical correlation is essential. Performed By: #### L 501.5200, L100.0100, L501.2300, L500.2500 #### [facility] [address] [place], [address] ECRCL 57.03 ml/min Normal [facility] Comment on above: Performed By: #### L 501.5200, L100.0100, L501.2300, L500.2500 #### [facility] [address] [place], [address] EST GFR - AA 82 mL/min Normal >60 [facility] Comment on above: Result Comment: Afri can Singaporean GFR Calc Performed By: #### L 501.5200, L100.0100, L501.2300, L500.2500 #### [facility] [address] [place], [address] GAP 7 Normal 5-15 [facility] Comment on above: Performed By: #### L 501.5200, L100.0100, L501.2300, L500.2500 #### [facility] [address] [place], [address] GFR/1.73 sq M.predicted among non-blacks MDRD (S/P/Bld) [Vol rate/Area] 68 mL/min/{1.73_m2} Normal >60 [facility] Comment on above: Result Comment: Non- GFR Calc Performed By: #### L 501.5200, L100.0100, L501.2300, L500.2500 #### [facility] [address] [place], [address] Glucose [Mass/Vol] 151 mg/dL High 74-106 [facility] Comment on above: Result Comment: Fast ing Glucose result greater than or equal to 126 mg/dL suggests DIABETES MELLITUS per A.D.A. criteria. Performed By: #### L 501.5200, L100.0100, L501.2300, L500.2500 #### [facility] [address] [place], [address] Potassium [Moles/Vol] 3.7 mmol/L Normal 3.5-5.1 [facility] Comment on above: Performed By: #### L 501.5200, L100.0100, L501.2300, L500.2500 #### [facility] [address] [place], [address] Sodium [Moles/Vol] 140 mmol/L Normal 136-145 [facility] Comment on above: Performed By: #### L 501.5200, L100.0100, L501.2300, L500.2500 #### [facility] [address] [place], [address] Urea nitrogen [Mass/Vol] 16 mg/dL Normal 7-18 [facility] Comment on above: Performed By: #### L 501.5200, L100.0100, L501.2300, L500.2500 #### [facility] [address] [place], [address] CBC W/Diff, Automatedon 01-13 Absolute Lymph 0.88 X10 3/uL Normal 0.83-4.51 [facility] Comment on above: Performed By: #### L 501.5200, L100.0100, L501.2300, L500.2500 #### [facility] [address] [place], [address] Absolute Neut 9.4 X10 3/uL High 2.0-7.7 [facility] Comment on above: Performed By: #### L 501.5200, L100.0100, L501.2300, L500.2500 #### [facility] [address] [place], [address] Basophils/100 WBC (Bld) 0.1 % Normal 0-1 [facility] Comment on above: Performed By: #### L 501.5200, L100.0100, L501.2300, L500.2500 #### [facility] [address] [place], [address] Eosinophils/100 WBC (Bld) 0.0 % Normal 0-5 [facility] Comment on above: Performed By: #### L 501.5200, L100.0100, L501.2300, L500.2500 #### [facility] [address] [place], [address] Erythrocyte distribution width (RBC) [Ratio] 12.8 % Normal 11.6-14.6 [facility] Comment on above: Performed By: #### L 501.5200, L100.0100, L501.2300, L500.2500 #### [facility] [address] [place], [address] Hematocrit (Bld) [Volume fraction] 46.3 % Normal 40-54 [facility] Comment on above: Performed By: #### L 501.5200, L100.0100, L501.2300, L500.2500 #### [facility] [address] [place], [address] Hemoglobin (Bld) [Mass/Vol] 15.8 g/dL Normal 13.0-16.5 [facility] Comment on above: Performed By: #### L 501.5200, L100.0100, L501.2300, L500.2500 #### [facility] [address] [place], [address] IG% 0.300 Normal 0.0-0.9 [facility] Comment on above: Result Comment: IG% - Immature Granulocytes (promyelocytes, myelocytes and metamyelocytes) > 1% indicates that a LEFT SHIFT is Present. Performed By: #### L 501.5200, L100.0100, L501.2300, L500.2500 #### [facility] [address] [place], [address] Lymphocytes/100 WBC (Bld) 8.3 % Low 19-41 [facility] Comment on above: Performed By: #### L 501.5200, L100.0100, L501.2300, L500.2500 #### [facility] [address] [place], [address] MCH (RBC) [Entitic mass] 30.7 pg Normal 27.0-32.0 [facility] Comment on above: Performed By: #### L 501.5200, L100.0100, L501.2300, L500.2500 #### [facility] [address] [place], [address] MCHC (RBC) [Mass/Vol] 34.1 g/dL Normal 32-36 [facility] Comment on above: Performed By: #### L 501.5200, L100.0100, L501.2300, L500.2500 #### [facility] [address] [place], [address] MCV (RBC) [Entitic vol] 89.9 fL Normal 80-94 [facility] Comment on above: Performed By: #### L 501.5200, L100.0100, L501.2300, L500.2500 #### [facility] [address] [place], [address] Monocytes/100 WBC (Bld) 2.5 % Normal 0-10 [facility] Comment on above: Performed By: #### L 501.5200, L100.0100, L501.2300, L500.2500 #### [facility] [address] [place], [address] Neutrophils/100 WBC (Bld) 88.8 % High 47-70 [facility] Comment on above: Performed By: #### L 501.5200, L100.0100, L501.2300, L500.2500 #### [facility] [address] [place], [address] Nucleated RBC (Bld) [#/Vol] 0 10*3/uL Normal 0-5 [facility] Comment on above: Performed By: #### L 501.5200, L100.0100, L501.2300, L500.2500 #### [facility] [address] [place], [address] Platelet mean volume (Bld) [Entitic vol] 10.6 fL Normal 6.2-12.0 [facility] Comment on above: Performed By: #### L 501.5200, L100.0100, L501.2300, L500.2500 #### [facility] [address] [place], [address] Platelets (Bld) [#/Vol] 175 10*3/uL Normal 150-450 [facility] Comment on above: Performed By: #### L 501.5200, L100.0100, L501.2300, L500.2500 #### [facility] [address] [place], [address] RBC (Bld) [#/Vol] 5.15 10*6/uL Normal 4.6-6.2 [facility] Comment on above: Performed By: #### L 501.5200, L100.0100, L501.2300, L500.2500 #### [facility] [address] [place], [address] RDW SD 42.4 fl Normal 35.1-43.9 [facility] Comment on above: Performed By: #### L 501.5200, L100.0100, L501.2300, L500.2500 #### [facility] [address] [place], [address] WBC (Bld) [#/Vol] 10.6 10*3/uL Normal 4.4-11.0 [facility] Comment on above: Performed By: #### L 501.5200, L100.0100, L501.2300, L500.2500 #### [facility] [address] [place], [address] Discharge Instructionon 01-13 Discharge Instruction [facility] Medical Records Department [address] [place] [address] Instructions for Home/Discharge Instructions 01/24/24 1210 MR#: [id number] Acct: [id number] Name: SHASHANK ESPINOZA Rep #: [id number] : 1945 79 From: Shane Pineda DO PCP: Dr. Yuval Dorantes MD Status:ADM DARRIUS Discharge Instructions Diet Discharge Diet: No restrictions Activity Discharge Activity: Return to Normal Activity Weight Bearing Status: Full weight bearing Follow Up Care Test Results: Test results from this visit will be discussed in further detail at your follow-up appointment, if applicable. Discharge Plan Admission Admit Date/Time: 01/23/24 12:17 Primary Reason for Your Visit: exacerbation of COPD Attending Provider: Shane Pineda Primary Care Provider: Yuval Dorantes Consulting Providers: Shashank Wright Discharge Orders/Prescriptions Prescriptions: New albuterol sulfate 90 mcg/actuation HFA aerosol inhaler 2 puff inhalation Q6H PRN (Reason: shortness of breath or wheezing) Qty: 8.5 0RF azithromycin [Zithromax] 500 mg tablet 500 mg PO DAILY 3 Days Qty: 3 0RF prednisone 20 mg tablet 20 mg PO BID Qty: 14 0RF Rx Instructions: take for seven days starting 01/25/24 Continued atorvastatin 40 mg tablet 40 mg PO QHS levothyroxine 50 mcg tablet 50 mcg PO DAILY amlodipine 10 mg tablet 10 mg PO DAILY nitroglycerin 0.4 mg tablet, sublingual 0.4 mg SUBLINGUAL Q5-15M PRN (Reason: Chest Pain) fluticasone propionate [Flonase Allergy Relief] 50 mcg/actuation spray,suspension 2 spray INTRANASAL DAILY PRN (Reason: seasonal allergies) trazodone 100 mg tablet 200 mg PO QHS clonazepam 1 mg tablet 1 mg PO BID PRN (Reason: Insomnia) losartan 100 MG tablet 100 mg PO DAILY famotidine 40 mg tablet 40 mg PO BID Patient Comments: gerd aspirin [Adult Aspirin Regimen] 81 mg tablet,delayed release (DR/EC) 81 mg PO DAILY Referrals / Follow Up: Yuval Dorantes MD [Primary Care Provider] - Disposition Disposition (needs filled in before D/C Order can be placed): Home, Self Care 01/24/24 1223 Shane Pineda DO CC: Dr. Shashank Wright MD; Dr. Yuval Dorantes MD Signed Normal [facility] Magnesiumon 01-24-2024 Magnesium [Mass/Vol] 2.2 mg/dL Normal 1.6-2.6 [facility] Comment on above: Performed By: #### L 400.0001 #### [facility] [address] [place], [address] Phosphoruson 01-24-2024 Phosphate [Mass/Vol] 3.4 mg/dL Normal 2.5-4.9 [facility] Comment on above: Performed By: #### L 501.5200, L100.0100, L501.2300, L500.2500 #### [facility] [address] [place], [address] 12 Lead EKGon 01-23-2024 12 Lead EKG [facility] Services [address] [place] [address] 12 Lead EKG 01/23/24 0933 MR#: [id number] Acct: [id number] Name: SHASHANK ESPINOZA Rep #: [id number] : 1945 79 From: Jessie Cruz MD Attending Dr: Dr. Shane Pineda DO Status: D IS DARRIUS Ordering Dr: Dimas Miller DO Date: 01/23/24 Location: MS3 Sex: M C Admitted: 01/23/24 Test Reason : SOB Blood Pressure : / mmHG Vent. Rate : 079 BPM Atrial Rate : 079 BPM P-R Int : 130 ms QRS Dur : 136 ms QT Int : 412 ms P-R-T Axes : -09 -51 -01 degrees QTc Int : 472 ms Normal sinus rhythm Right bundle branch block Left anterior fascicular block Bifascicular block Abnormal ECG Confirmed by HARDIK VELAZQUEZ, HARMAN ([id number]), videotape editor JESSE JIMENEZ ([id number]) on 01/30/2024 10:26:26 AM Referred By: DK Confirmed By:WENDY CRUZ MD 01/30/24 1026 Date Jessie Cruz MD CC: Dr. Dimas Miller DO; Dr. Yuval Dorantes MD; Dr. Shane Pineda DO Signed Normal [facility] BNP,B-Type NATRIURETIC PEPTI Jeannie 01-23-2024 Natriuretic peptide B (Bld) [Mass/Vol] 14.6 pg/mL Normal 0-100 [facility] Comment on above: Performed By: #### L 501.4020, L500.2500, L503.6620, L100.0100 #### [facility] [address] [place], [address] Basic Metabolic Profile (BMP )on 01-23-2024 BUN/CRE 12.7 RATIO Normal 10-20 [facility] Comment on above: Order Comment: 'TROP ' Serial specimen #1, #2 or #3: 1 Performed By: #### L 501.4020, L500.2500, L503.6620, L100.0100 #### [facility] [address] [place], [address] CA,Total 8.7 mg/dL Normal 8.5-10.1 [facility] Comment on above: Order Comment: 'TROP ' Serial specimen #1, #2 or #3: 1 Performed By: #### L 501.4020, L500.2500, L503.6620, L100.0100 #### [facility] [address] [place], [address] Chloride [Moles/Vol] 106 mmol/L Normal 98-107 [facility] Comment on above: Order Comment: 'TROP ' Serial specimen #1, #2 or #3: 1 Performed By: #### L 501.4020, L500.2500, L503.6620, L100.0100 #### [facility] [address] [place], [address] CO2 [Moles/Vol] 27.0 mmol/L Normal 21.0-32.0 [facility] Comment on above: Order Comment: 'TROP ' Serial specimen #1, #2 or #3: 1 Performed By: #### L 501.4020, L500.2500, L503.6620, L100.0100 #### [facility] [address] [place], [address] Creatinine [Mass/Vol] 1.18 mg/dL Normal 0.70-1.30 [facility] Comment on above: Order Comment: 'TROP ' Serial specimen #1, #2 or #3: 1 Result Comment: The validity of the calculated GFR GFRAA in patients over 70 years has not been determined. Clinical correlation is essential. Performed By: #### L 501.4020, L500.2500, L503.6620, L100.0100 #### [facility] [address] [place], [address] ECRCL 54.13 ml/min Normal [facility] Comment on above: Order Comment: 'TROP ' Serial specimen #1, #2 or #3: 1 Performed By: #### L 501.4020, L500.2500, L503.6620, L100.0100 #### [facility] [address] [place], [address] EST GFR - AA 77 mL/min Normal >60 [facility] Comment on above: Order Comment: 'TROP ' Serial specimen #1, #2 or #3: 1 Result Comment: Afri can Singaporean GFR Calc Performed By: #### L 501.4020, L500.2500, L503.6620, L100.0100 #### [facility] [address] [place], [address] GAP 3 Low 5-15 [facility] Comment on above: Order Comment: 'TROP ' Serial specimen #1, #2 or #3: 1 Performed By: #### L 501.4020, L500.2500, L503.6620, L100.0100 #### [facility] [address] [place], [address] GFR/1.73 sq M.predicted among non-blacks MDRD (S/P/Bld) [Vol rate/Area] 64 mL/min/{1.73_m2} Normal >60 [facility] Comment on above: Order Comment: 'TROP ' Serial specimen #1, #2 or #3: 1 Result Comment: Non- GFR Calc Performed By: #### L 501.4020, L500.2500, L503.6620, L100.0100 #### [facility] [address] [place], [address] Glucose [Mass/Vol] 112 mg/dL High 74-106 [facility] Comment on above: Order Comment: 'TROP ' Serial specimen #1, #2 or #3: 1 Result Comment: Fast ing Glucose result from 100 to 125 mg/dL suggests IMPAIRED HOMEOSTASIS per A.D.A. criteria. Performed By: #### L 501.4020, L500.2500, L503.6620, L100.0100 #### [facility] [address] [place], [address] Potassium [Moles/Vol] 3.7 mmol/L Normal 3.5-5.1 [facility] Comment on above: Order Comment: 'TROP ' Serial specimen #1, #2 or #3: 1 Performed By: #### L 501.4020, L500.2500, L503.6620, L100.0100 #### [facility] [address] [place], [address] Sodium [Moles/Vol] 136 mmol/L Normal 136-145 [facility] Comment on above: Order Comment: 'TROP ' Serial specimen #1, #2 or #3: 1 Performed By: #### L 501.4020, L500.2500, L503.6620, L100.0100 #### [facility] [address] [place], [address] Urea nitrogen [Mass/Vol] 15 mg/dL Normal 7-18 [facility] Comment on above: Order Comment: 'TROP ' Serial specimen #1, #2 or #3: 1 Performed By: #### L 501.4020, L500.2500, L503.6620, L100.0100 #### [facility] [address] [place], [address] CBC W/Diff, Automatedon 07-1 0-2024 Absolute Lymph 1.39 X10 3/uL Normal 0.83-4.51 [facility] Comment on above: Performed By: #### L 501.4020, L500.2500, L503.6620, L100.0100 #### [facility] [address] [place], [address] Absolute Neut 6.3 X10 3/uL Normal 2.0-7.7 [facility] Comment on above: Performed By: #### L 501.4020, L500.2500, L503.6620, L100.0100 #### [facility] [address] [place], [address] Basophils/100 WBC (Bld) 0.2 % Normal 0-1 [facility] Comment on above: Performed By: #### L 501.4020, L500.2500, L503.6620, L100.0100 #### [facility] [address] [place], [address] Eosinophils/100 WBC (Bld) 0.8 % Normal 0-5 [facility] Comment on above: Performed By: #### L 501.4020, L500.2500, L503.6620, L100.0100 #### [facility] [address] [place], [address] Erythrocyte distribution width (RBC) [Ratio] 13.0 % Normal 11.6-14.6 [facility] Comment on above: Performed By: #### L 501.4020, L500.2500, L503.6620, L100.0100 #### [facility] [address] [place], [address] Hematocrit (Bld) [Volume fraction] 43.0 % Normal 40-54 [facility] Comment on above: Performed By: #### L 501.4020, L500.2500, L503.6620, L100.0100 #### [facility] [address] [place], [address] Hemoglobin (Bld) [Mass/Vol] 14.7 g/dL Normal 13.0-16.5 [facility] Comment on above: Performed By: #### L 501.4020, L500.2500, L503.6620, L100.0100 #### [facility] [address] [place], [address] IG% 0.400 Normal 0.0-0.9 [facility] Comment on above: Result Comment: IG% - Immature Granulocytes (promyelocytes, myelocytes and metamyelocytes) > 1% indicates that a LEFT SHIFT is Present. Performed By: #### L 501.4020, L500.2500, L503.6620, L100.0100 #### [facility] [address] [place], [address] Lymphocytes/100 WBC (Bld) 16.5 % Low 19-41 [facility] Comment on above: Performed By: #### L 501.4020, L500.2500, L503.6620, L100.0100 #### [facility] [address] [place], [address] MCH (RBC) [Entitic mass] 30.2 pg Normal 27.0-32.0 [facility] Comment on above: Performed By: #### L 501.4020, L500.2500, L503.6620, L100.0100 #### [facility] [address] [place], [address] MCHC (RBC) [Mass/Vol] 34.2 g/dL Normal 32-36 [facility] Comment on above: Performed By: #### L 501.4020, L500.2500, L503.6620, L100.0100 #### [facility] [address] [place], [address] MCV (RBC) [Entitic vol] 88.3 fL Normal 80-94 [facility] Comment on above: Performed By: #### L 501.4020, L500.2500, L503.6620, L100.0100 #### [facility] [address] [place], [address] Monocytes/100 WBC (Bld) 7.4 % Normal 0-10 [facility] Comment on above: Performed By: #### L 501.4020, L500.2500, L503.6620, L100.0100 #### [facility] [address] [place], [address] Neutrophils/100 WBC (Bld) 74.7 % High 47-70 [facility] Comment on above: Performed By: #### L 501.4020, L500.2500, L503.6620, L100.0100 #### [facility] [address] [place], [address] Nucleated RBC (Bld) [#/Vol] 0 10*3/uL Normal 0-5 [facility] Comment on above: Performed By: #### L 501.4020, L500.2500, L503.6620, L100.0100 #### [facility] [address] [place], [address] Platelet mean volume (Bld) [Entitic vol] 10.5 fL Normal 6.2-12.0 [facility] Comment on above: Performed By: #### L 501.4020, L500.2500, L503.6620, L100.0100 #### [facility] [address] [place], [address] Platelets (Bld) [#/Vol] 138 10*3/uL Low 150-450 [facility] Comment on above: Performed By: #### L 501.4020, L500.2500, L503.6620, L100.0100 #### [facility] [address] [place], [address] RBC (Bld) [#/Vol] 4.87 10*6/uL Normal 4.6-6.2 [facility] Comment on above: Performed By: #### L 501.4020, L500.2500, L503.6620, L100.0100 #### [facility] [address] [place], [address] RDW SD 41.9 fl Normal 35.1-43.9 [facility] Comment on above: Performed By: #### L 501.4020, L500.2500, L503.6620, L100.0100 #### [facility] [address] [place], [address] WBC (Bld) [#/Vol] 8.4 10*3/uL Normal 4.4-11.0 [facility] Comment on above: Performed By: #### L 501.4020, L500.2500, L503.6620, L100.0100 #### [facility] [address] [place], [address] Chest 1 View (Portable)on Chest 1 View (Portable) [facility] Imaging Services [address] [place] [address] Chest 1 View (Portable) MR#: [id number] Acct: [id number] Name: SHASHANK ESPINOZA Rep #: [id number] : 1945 M 79 From: Alexsander ramirez MD PCP: Dr. Yuval Dorantes MD Status: REG ER Study: Chest 1 View (Portable) Date of Exam: 01/23/24 Exam# [id number] Ordering Dr: Dimas Miller DO [id number] STUDY: X-RAY CHEST REASON FOR EXAM: Male, 79 years old. Chest pain TECHNIQUE: Single AP portable view of the chest. COMPARISON: Comparison is made with prior study dated June 23, 2022. FINDINGS: EKG electrodes are seen. Hyperinflation. The lungs are clear. There is no demonstrated pleural abnormality. Normal size heart. Normal mediastinum and rahel. Normal visualized pulmonary arteries. There is atherosclerotic tortuosity of the aortic arch and descending thoracic aorta. There are diffuse degenerative changes of the visualized thoracic spine. Normal visualized ribs, clavicles, and shoulders. There is no demonstrated abnormality of the visualized soft tissue structures of the upper abdomen. RAD/Chest 1 View (Portable) IMPRESSION: No acute abnormality is seen. Electronically Signed: Alexsander Mcclain MD at 10:03 EDT , CC: Dr. Dimas Miller DO; Dr. Yuval Dorantes MD Rib Matcher And Fitter: Signed Normal [facility] Chest without Contraston Chest without Contrast [facility] Imaging Services [address] [place] [address] Chest without Contrast MR#: [id number] Acct: [id number] Name: SHASHANK ESPINOZA Rep #: [id number] : 1945 [facility] From: Alexsander ramirez MD PCP: Dr. Yuval Dorantes MD Status: REG ER Study: Chest without Contrast Date of Exam: 01/23/24 Exam# [id number] Ordering Dr: Dimas Miller DO [id number] STUDY: CT CHEST WITHOUT CONTRAST REASON FOR EXAM: Male, 79 years old. Dyspnea RADIATION DOSAGE (If Supplied By Facility): CTDIvol = ( 12.57 ) mGy, DLP = ( 483.68 ) mGycm TECHNIQUE: Transaxial imaging was performed without the administration of intravenous contrast material. Multiplanar coronal and sagittal images were reformatted. Individualized dose optimization techniques were used for this CT. COMPARISON: Comparison is made with prior study dated January 11, 2023 and prior chest radiograph done earlier in the day. FINDINGS: CHEST Hyperinflation. Emphysematous changes. Minimal degree of increased markings at the lung bases. These were present There is no demonstrated pleural abnormality. There are calcifications of the coronary arteries. Normal mediastinum. Normal hilar regions. Normal unenhanced pulmonary arteries. There is atherosclerotic calcification of the aortic arch with tortuosity and elongation of the aortic arch and descending thoracic aorta. Stable dilatation of the root of the ascending thoracic aorta measuring 41.8 mm. There are multi-level degenerative changes of the thoracic spine. There is no demonstrated abnormality of the visualized upper abdomen. CT/Chest without Contrast IMPRESSION: Hyperinflation and COPD. Stable scarring at the lung bases. Electronically Signed: Alexsander Mcclain MD at 11:39 EDT Reading Location ID and State: [facility] / [place] , Service support , CC: Dr. Dimas Miller DO; Dr. Yuval Dorantes MD Rib Matcher And Fitter: Signed Normal [facility] D-Dimer Quantitative (DVT/PE )on 01-23-2024 D-DIMER QUANT 0.59 FEU/ug/m Invalid Interpretation Code 0.27-0.49 [facility] Comment on above: Result Comment: D-Di kacie ELEVATED (>0.49): Additional studies and clinical assessments are indicated to conclude diagnosis of: Deep Vein Thrombosis (DVT) or Pulmonary Embolism (PE) CRITICAL VALUE VERIFIED. CALLED TO [facility]YR PRICE (ER) 01/23/24 1057 Eri Delgado. RESULTS READ BACK BY SAME. Performed By: #### L 300.8000 #### [facility] [address] [place], [place], [id number] Emergency Department Summary on 01-23-2024 Emergency Department Summary [facility] Medical Records Department [address] [place] [address] Emergency Department Summary 01/23/24 MR#: [id number] Acct: [id number] Name: SHASHANK ESPINOZA Rep #: [id number] : 1945 79 From: Dimas Miller DO PCP: Dr. Yuval Dorantes MD Status:ADM DARRIUS Location: MS3 IQ667-4 HPI History of Present Illness Chief Complaint: Shortness of Breath Narrative Narrative: 79-year-old male with history of hypertension, CAD, hyperlipidemia, thoracic aortic aneurysm presenting with dyspnea. He states he was recently diagnosed with COPD/emphysema. Patient states he feels more short of breath over the last week. He has not had a fever. Denies any chest pain. Patient states he is more short of breath when he is ambulating. This gets better with rest. He does state that when he tries to sleep he wakes up very short of breath. He states he had a sleep study done in 2016 which was negative but has not seen them since. He was told that he snores. Patient has no known sick contacts at this time and states his family is all out of town. No history of DVT/PE and no risk factors. Patient denies a history of CHF but states he previously was on Lasix. 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 Anxiety Cerebellar atrophy Myocardial infarction, old History of hepatitis C Psychophysiological insomnia Depression Carotid artery occlusion ( 06/2011) Atherosclerosis of coronary artery of [place] heart without angina pectoris 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) Alopecia Essential hypertension Hypothyroidism Vertigo Hyperlipidemia Home Medications ???Medication ???Instructions ???Recorded ???Last Taken ???Type losartan 100 mg tablet 100 mg PO DAILY Blood pressure 10/14/15 01/23/24 History amlodipine 10 mg tablet 10 mg PO DAILY heart 12/04/18 01/23/24 History atorvastatin 40 mg tablet 40 mg PO QHS cholesterol 12/04/18 01/22/24 History famotidine 40 mg tablet 40 mg PO BID allergies 12/04/18 01/23/24 History levothyroxine 50 mcg tablet 50 mcg PO DAILY thyroid 12/04/18 01/23/24 History nitroglycerin 0.4 mg sublingual 0.4 mg sublingual Q5-15M PRN Chest 12/04/18 Unknown History tablet Pain fluticasone propionate 50 2 spray intranasal DAILY PRN 12/30/19 Unknown History mcg/actuation nasal seasonal allergies spray,suspension (Flonase Allergy Relief) trazodone 100 mg tablet 200 mg PO QHS for sleep 12/30/19 01/22/24 History clonazepam 1 mg tablet 1 mg PO BID PRN Insomnia 07/04/21 01/22/24 History aspirin 81 mg tablet,delayed 81 mg PO DAILY 07/11/22 Unknown History release (Adult Aspirin Regimen) Allergy/AdvReac Type Severity Reaction Status Date / Time No Known Allergies Allergy Verified 01/23/24 09:27 Family History Father CHF (congestive heart failure) Mother Cancer stomach Surgical History Presence of stent in coronary artery History of hemorrhoidectomy Benign neoplasm of large bowel Social History Smoking Status: Former smoker how long ago did patient quit smokin years ago alcohol intake: never substance use type: does not use caffeine: Yes Type: coffee Number of servings: 5 ROS ROS ED Constitutional Constitutional ED: Denies chills, fever(s) or sweats Eyes Eyes: Denies blurry vision or change in vision ENT ENT ED: Denies ear pain or sore throat Cardiovascular Cardiovascular: Reports orthopnea; Denies chest pain, palpitations or racing heartbeat Respiratory/Chest Respiratory/Chest: Reports cough, dyspnea, dyspnea on exertion and orthopnea; Denies sputum Gastrointestinal Gastrointestinal: Denies abdominal pain, constipation, diarrhea, nausea or vomiting Genitourinary Genitourinary ED: Denies dysuria, hematuria or urinary frequency Musculoskeletal Musculoskeletal: Denies arthralgias, myalgias or neck pain Integumentary Denies abscess, Abrasions or rash Neurologic Neurologic: Denies headache(s), paresthesias or weakness Psychiatric Psychiatric: Denies anxiety, depression, suicidal ideation or suicidal thoughts Endocrine Endocrinology: Denies polydipsia or polyuria EXAM Physical Exam Const Vital Signs: 01/23/24 09:27 01/23/24 09:38 01/23/24 09:39 Temperature 97.0 F L Temperature Source Temporal Pulse Rate 83 (more content not included)... Normal [facility] H AND P Exam - [place] 01-23-2024 H&P Exam - Hospitalist [facility] Medical Records Department [address] [place] [address] H P Exam - Hospitalist 01/23/24 1233 MR#: [id number] Acct: [id number] Name: SHASHANK ESPINOZA Rep #: [id number] : 1945 79 From: Shashank Wright MD PCP: Dr. Yuval Dorantes MD Status:ADM DARRIUS [place] [facility] [id number] HPI - General General Date of Admission: 01/23/24 Date of Service: 01/23/24 Chief Complaint: Shortness of breath HPI Narrative SHASHANK ESPINOZA, is a 79 M who presents with shortness of breath. Per patient symptoms have been ongoing for the past 10 days. In addition to shortness of breath patient has experienced some cough as well as wheezing. Also did admit to subjective fever and chills. Presented to the emergency department due to persistent nature of his symptoms. An assessment of COPD with acute exacerbation made admitted to regular nursing floor for further management. 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) Alopecia Essential hypertension Hypothyroidism Vertigo Hyperlipidemia Home Medications ???Medication ???Instructions ???Recorded ???Last Taken ???Type losartan 100 mg tablet 100 mg PO DAILY Blood pressure 10/14/15 01/23/24 History amlodipine 10 mg tablet 10 mg PO DAILY heart 12/04/18 01/23/24 History atorvastatin 40 mg tablet 40 mg PO QHS cholesterol 12/04/18 01/22/24 History famotidine 40 mg tablet 40 mg PO BID allergies 12/04/18 01/23/24 History levothyroxine 50 mcg tablet 50 mcg PO DAILY thyroid 12/04/18 01/23/24 History nitroglycerin 0.4 mg sublingual 0.4 mg sublingual Q5-15M PRN Chest 12/04/18 Unknown History tablet Pain fluticasone propionate 50 2 spray intranasal DAILY PRN 12/30/19 Unknown History mcg/actuation nasal seasonal allergies spray,suspension (Flonase Allergy Relief) trazodone 100 mg tablet 200 mg PO QHS for sleep 12/30/19 01/22/24 History clonazepam 1 mg tablet 1 mg PO BID PRN Insomnia 07/04/21 01/22/24 History aspirin 81 mg tablet,delayed 81 mg PO DAILY 07/11/22 Unknown History release (Adult Aspirin Regimen) Allergy/AdvReac Type Severity Reaction Status Date / Time No Known Allergies Allergy Verified 01/23/24 09:27 Family History Father CHF (congestive heart failure) Mother Cancer stomach Surgical History Presence of stent in coronary artery History of hemorrhoidectomy Benign neoplasm of large bowel Social History Smoking Status: Former smoker how long ago did patient quit smokin years ago alcohol intake: never substance use type: does not use caffeine: Yes Type: coffee Number of servings: 5 ROS ROS Narrative GENERAL: Subjective fever and chills HEENT: denies headache, sinus congestion, or drainage, dysphagia RESPIRATORY: cough, shortness of breath, dyspnea on exertion CARDIAC: denies chest pain, palpitations, orthopnea, PND GASTROINTESTINAL: denies abdominal pain, nausea, vomiting, melena, GENITOURINARY: denies dysuria, urgency, frequency, heamaturia EXTREMITY: denies swelling MUSCULOSKELETAL: denies current joint pain or tenderness NEUROLOGIC: denies focal numbness, weakness, tingling HEMATOLOGIC: denies easy bruising and/or hemorrhage INTEGUMENT: denies rashes PSYCHIATRIC: denies suicidal or homicidal ideation Vital Signs Vital Signs Vital Signs: 01/23/24 09:27 01/23/24 09:38 01/23/24 09:39 Temperature 97.0 F L Temperature Source Temporal Pulse Rate 83 Respiratory Rate 18 Respiratory Effort Short of Breath Respiratory Depth Shallow Respiratory Pattern Tachypnea Blood Pressure 146/93 H Blood Pressure Mean 110 Pulse Ox 92 Oxygen Delivery Method Room Air Room Air Oxygen Flow Rate (L/min) 01/23/24 09:56 01/23/24 10:25 01/23/24 10:25 Temperature Temperature Source Pulse Rate 72 78 Respiratory Rate 16 14 Respiratory Effort Respiratory Depth Respiratory Pattern Blood Pressure 115/65 Blood Pressure Mean 81 Pulse Ox 86 96 Oxygen Delivery Method Room Air Nasal Cannula Oxygen Flow Rate (L/min) 2 01/23/24 11:00 01/23/24 12:00 01/23/24 12:08 Temperature 97.7 F L 97.7 F L [place] (more content not included)... Normal [facility] L501.4020on 01-23-2024 TROPONIN-I HS 10 pg/mL Normal 3.0-78.0 [facility] Comment on above: Order Comment: 'TROP ' Serial specimen #1, #2 or #3: 1 Result Comment: Plea se Note: New Test Units and Gender Specific Reference Ranges. For more information see Policy Stat Procedure [place] High Sensitivity Troponin (TNIH) and attachments. Performed By: #### L 501.4020, L500.2500, L503.6620, L100.0100 #### [facility] [address] [place], [place], [address] RESPIRATORY PANEL MOLECULARo n 01-23-2024 RP PANEL TO [facility]. HOPEFULLY TESTING WILL WORK THIS TIME @THEY WILL HAVE A RESULT IN 2HOURS, 01/23/24 2113 VANESA ADENOVIRUS Not Detected INFLUENZA A Not Detected INFLUENZA A (SUBTYPE H1) Not Detected INFLUENZA A (SUBTYPE H3) Not Detected INFLUENZA B Not Detected HUMAN METAPHNEUMO Not Detected PARAINFLUENZA 1 Not Detected PARAINFLUENZA 2 Not Detected PARAINFLUENZA 3 Not Detected PARAINFLUENZA 4 Not Detected RHINOVIRUS Not Detected RSV A Not Detected RSV B Not Detected Normal [facility] Comment on above: Performed By: #### L 501.4020, L500.2500, L503.6620, L100.0100 #### [facility] [address] [place], [address] Cardiology Visit Reporton Cardiology Visit Report [facility] [address] [place] [address] OFFICE VISIT Date of Service: 01/10/24 MR#: [id number] Acct: [id number] Name: SHASHANK ESPINOZA Rep #: [id number] : 1945 Provider: Dr. An cloud MD Age/Sex: 79/M [place] [facility] [place] Status: Signed HPI HPI History of Present Illness Details: Shashank Espinoza is a 79-year-old gentleman that presents here today for a cardiovascular follow-up.??? He has a history of coronary artery disease with stenting to his RCA in 2010, carotid artery disease with right-sided occlusion, moderate disease on the left, ascending aortic aneurysm measuring 4.2cm, hypertension and hyperlipidemia. He does follow with Dr. Davies/Kimberly for his carotid stenosis. Pt was hospitalized in 07/06 for a TIA. He did f/u with his neurologist, his plavix has been stopped. The patient remains on aspirin daily. The patient has been diagnosed with a rising PSA level. He is scheduled to undergo prostate biopsy January 29. The patient currently denies any chest pain he denies any significant change in his chronic dyspnea on exertion. Has a history of agent orange exposure in [place]. He has had no recurrence of the symptoms that precipitated his right coronary artery intervention in 2010. Is able to walk up a flight of steep basement stairs he does have to stop and rest at the top but he denies any significant shortness of breath. He is able to work around his house without significant restrictions. The patient's [facility] The patient no longer smokes he quit in 2010 at the time of his acute cardiac event. Patient denies any PND orthopnea denies any lower extremity edema. He reports no syncope or near syncope. Intake Vital Signs 12/26/22 10:50 01/10/24 13:56 Height 5 ft 10 in 5 ft 10 in Weight: 167 lb BMI 23.9 BP 118/74 Blood Pressure Location Lt brachial Position Sitting Respiration 18 Pulse 63 Pulse Source Monitor Pulse Oximetry (%) 89 Oxygen Delivery Method room air Intake Visit Reasons: 1 Y FU Rehab Care Assistant Required: No Accompanied by: Niece Is patient in pain?: No Allergies No Known Allergies Allergy (Verified 01/10/24 13:57) Medications ???Medication ???Instructions ???Recorded ???Confirmed ???Type losartan 100 mg tablet 100 mg PO DAILY Blood pressure 10/14/15 01/10/24 History amlodipine 10 mg tablet 10 mg PO DAILY heart 12/04/18 01/10/24 History atorvastatin 40 mg tablet 40 mg PO QHS cholesterol 12/04/18 01/10/24 History famotidine 40 mg tablet 40 mg PO BID allergies 12/04/18 01/10/24 History levothyroxine 50 mcg tablet 50 mcg PO DAILY thyroid 12/04/18 01/10/24 History nitroglycerin 0.4 mg sublingual 0.4 mg sublingual Q5-15M PRN Chest 12/04/18 01/10/24 History tablet Pain fluticasone propionate 50 2 spray intranasal DAILY PRN 12/30/19 12/26/22 History mcg/actuation nasal seasonal allergies spray,suspension (Flonase Allergy Relief) trazodone 100 mg tablet 200 mg PO QHS for sleep 12/30/19 01/10/24 History clonazepam 1 mg tablet 1 mg PO BID PRN Insomnia 07/04/21 01/10/24 History aspirin 81 mg tablet,delayed 81 mg PO DAILY 07/11/22 01/10/24 History release (Adult Aspirin Regimen) Ejection fraction %: 55 Have you fallen in the past year?: No PFSH Medical History TIA (transient ischemic attack) Thoracic aortic aneurysm without rupture ( 10/13/15) Claudication of both lower extremities Fatigue Nonruptured zhang aneurysm Snoring Hearing loss in left ear Disorder of bone and cartilage Anxiety Cerebellar atrophy Myocardial infarction, old History of hepatitis C Psychophysiological insomnia Depression Carotid artery occlusion ( 06/2011) Atherosclerosis of coronary artery of [place] heart without angina pectoris 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) Alopecia Essential hypertension Hypothyroidism Vertigo Hyperlipidemia Surgical History Presence of stent in coronary artery History of hemorrhoidectomy Benign neoplasm of large bowel Family History Father CHF (congestive heart failure) Mother Cancer stomach Social History Smoking Status: Former smoker how long ago did patient quit smokin years ago alcohol intake: never substance use type: does not use caffeine: Yes Type: coffee Number of servings: 5 ROS Const Const: Negative for fatigue or weakness ENT ENT: Positive for dizziness (intermittently); Negative for balance problems Cardio Chest Pain: No Palpitations: No Edema: None Muscle aches with walking: None (more content not included)... Normal [facility] 01-03-2024 [facility] Tele[facility] (UROLMD) -- SHASHANK ESPINOZA ([id number]) 1945 M Date Time Provider Department [facility]03[facility] today, we recorded the following information about you: Mariangel Espinosa RN 01/03/2024 10:35 AM Signed An Henley Jr., MD Shook, Janelle, RN Ok to schedule ----- Message ----- From: Porsha Meadows PA-C Sent: 01/01/2024 5:51 PM EDT To: An Henley Jr., MD; Mila Fenton Patient has PSA 8.7 and IsoPSA 13.4% and would he needs a biopsy at [facility] # [phone] Spoke with patient and he already got set with Dr. Schulz for 01-30-2024 and going to keep that appt. I did advise that he can do biopsy and if needs follow up he can refer to Dr. Henley. Dr. Schulz pended the order you have been doing. Sign if OK. Ketan Schulz MD 01/03/2024 11:34 AM Signed Rx sent Mariangel Espinosa RN 01/03/2024 11:44 AM Signed Advised patient via My Chart. Mariangel Espinosa RN 2024 9:16 AM Signed Responded and closing. Allergies As of Date: 01/03/2024 Noted Allergy Reaction PRILOSEC (OMEPRAZOLE MAGNESIUM) 09/27/2010 14 - Other: See Comments Comments: GI upset Date Reviewed: 01/01/2024 Reviewed by: Porsha Meadows PA-C - Fully Assessed Reason for Visit: Prostate Biopsy Scheduling [Other] Primary Visit Diagnosis:Elevated prostate specific antigen (PSA) [R97.20] Other Visit Diagnosis:Benign prostatic hyperplasia with urinary retention [N40.1, R33.8] Order(s):[] levoFLOXacin (LEVAQUIN) 750 mg tabletTake 1 tablet by mouth one time only for 1 dose. Take 1 day before procedure, 1 day of and 1 day after ProcedureDisp: 3 tabletRfl: 0 Prescriptions as of 2024 - clonazePAM (KLONOPIN) 1 mg tablet Take 1 tablet by mouth daily at bedtime. May also take 1 tablet once daily as needed. Do all this for 90 days. - ipratropium bromide (ATROVENT) 42 mcg (0.06 %) nasal spray Use 2 Sprays in the nose four times daily as needed. - fluticasone (FLONASE) 50 mcg/actuation nasal spray Use 2 Sprays in each nostril once daily as needed. Rinse mouth after use. - traZODone (DESYREL) 100 mg tablet Take 1-2 tablets by mouth daily at bedtime. ([facility]) - psyllium husk (KONSYL SUGAR-FREE) 6 gram/6 gram powd Take 1 Scoop by mouth once daily as needed. - nitroglycerin sublingual (NITROQUICK) 0.4 mg SL tablet Dissolve 1 tablet under the tongue as needed. FOR CHEST PAIN. IF NO RELIEF CALL 911 - levothyroxine (SYNTHROID) 50 mcg tablet Currently taking 1 pill daily except 1 day a week takes 2 pills (Sunday) ([facility]; dose decreased to one pill daily by [facility] provider) - docusate sodium (COLACE) 100 mg capsule Take 1 capsule by mouth twice daily as needed for Constipation. - atorvastatin (LIPITOR) 40 mg tablet Take 1 tablet by mouth once daily. For cholesterol. ([facility]) - famotidine (PEPCID) 40 mg tablet Take 1 tablet by mouth twice daily. - amLODIPine (NORVASC) 10 mg tablet Take 1 tablet by mouth once daily. 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 Cruz) - losartan (COZAAR) 100 mg tablet Take 1 tablet by mouth once daily. - Aspirin 81 mg ORAL Tab Take 81 mg by mouth once daily. Problem List As Of Date 01/03/2024 Noted Resolved Disorder of bone and cartilage [M89.9, M94.9] Depression [F32.A] Anxiety [F41.9] Chronic hepatitis C without mention of hepatic *05/08/2005 02/16/2016 ALOPECIA [704.0] 05/08/2005 INT HEMORRHOID W/O COMPL [K64.8] 05/08/2005 COLON POLYP [D12.6] 05/08/2005 ERECTILE DYSFUNCTION [F52.9] 05/08/2005 Hemorrhage of gastrointestinal tract, unspecifi*05/08/2005 02/17/2014 MALAISE AND FATIGUE NEC [R53.81, R53.83] 07/21/2005 PERS HX TOBACCO USE [Z87.891] 12/26/2005 Epidermal Cyst [L72.0] 07/13/2006 BENIGN MICHAEL SKIN FACE NEC [D23.30] 07/13/2006 XANTHALASMA///MIXED HYPERLIPIDEMIA [E78.2] 07/13/2006 XANTHELASMA [H02.60] 07/13/2006 ACNE NEC [L70.8] 07/13/2006 Open wound(s) (multiple) of unspecified site(s)*07/25/2006 09/19/2017 UNCERTAIN BEHAV NEOPL SKIN [D48.5] 08/24/2006 BENIGN MICHAEL SKIN EYELID [D23.10] 08/31/2006 MYALGIA AND MYOSITIS NOS [SEZ1556] 04/12/2007 ADJUSTMENT DISORDER WITH DEPRESSED MOOD [F43.21]12/13/2007 VIRAL WARTS NOS [B07.9] 10/20/2008 INSOMNIA NOS [G47.00] 11/03/2008 CHRONIC PAIN NEC [G89.29] 11/03/2008 Fatty liver [K76.0] 08/16/2009 02/17/2014 SUMMARY [V999.95] 08/30/2010 Chest pain [R07.9] 08/30/2010 Melena [K92.1] 08/30/2010 HLD (hyperlipidemia) [E78.5] 08/30/2010 Hypertension goal BP (blood pressure) < 140/90 *08/30/2010 CAD (coronary artery disease), [place] coronary *08/30/2010 S/P coronary artery stent placement [Z95.5] 08/30/2010 Acute gastritis without mention of hemorrhage [*10/10/2010 02/16/2016 Duodenitis without mention of hemorrhage [K29.8*10/10/2010 Sinus bradycardia [R00.1] 04/10/2011 Carotid artery occlusion, 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] His (more content not included)... Normal [facility] CNOVon 01-01-2024 CNOV Office Visit (UROLWS ) -- SHASHANK ESPINOZA ([id number]) 1945 M Date Time Provider Department 01/01/24 3:30 PM PORSHA MEADOWS UROCHAD During your visit today, we recorded the following information about you: Temperature Pulse Respiration Blood pressure 98.3 degrees 66/minute 12/minute 98/68 Weight Height 75.7 kg 1.727 m Leelee Lyon LPN 01/01/2024 10:00 PM Signed Verified name and date of . CC Post Void Residual HPI: Shashank Espinoza is a 78 year old male. The patient is here now for an appointment with Porsha Meadows, [place], [place], PA-COV. Procedure: Explained procedure to patient and verbalizes understanding. Performed a PVR. Patient states unable to urinate at this time. States he went approximately 30 minutes prior. Results of scan: 44 mL The patient tolerated the procedure well. Plan: Appointment with Porsha. Porsha Meadows PA-C 01/01/2024 10:00 PM Signed [facility] EST PATIENT CLINIC NOTE SERVICE DATE: January 01, 2024 NAME: Shashank Espinoza CHIEF COMPLAINT: Elevated PSA HISTORY OF PRESENT ILLNESS: Shashank Espinoza is a 78 year old male an established patient following up for Elevated PSA The patient reports he and his daughter are here to discuss recent elevated PSA and IsoPSA Review of the tests in detail and recommendation of prostate biopsy and will get this set up at [place] PSA - 8.32 IsoPSA 13.4 % TPSA Results 8.760 LUTS: None currently LABS: PSA (ng/mL) Date Value 12/12/2023 8.32 06/27/2022 5.84 11/30/2020 4.28 06/08/2020 5.0 02/08/2016 2.32 MEDICATIONS: clonazePAM (KLONOPIN) 1 mg tablet Take 1 tablet by mouth daily at bedtime. May also take 1 tablet once daily as needed. Do all this for 90 days. traZODone (DESYREL) 100 mg tablet Take 1-2 tablets by mouth daily at bedtime. (Get through [place] now) psyllium husk (KONSYL SUGAR-FREE) 6 gram/6 gram powd Take 1 Scoop by mouth once daily as needed. nitroglycerin sublingual (NITROQUICK) 0.4 mg SL tablet Dissolve 1 tablet under the tongue as needed. FOR CHEST PAIN. IF NO RELIEF CALL 911 levothyroxine (SYNTHROID) 50 mcg tablet Currently taking 1 pill daily except 1 day a week takes 2 pills (Sunday) ([facility]; dose decreased to one pill daily by [facility] provider) (Patient taking differently: Currently taking 1 pill daily except 1 day a week takes 2 pills on Sunday) atorvastatin (LIPITOR) 40 mg tablet Take 1 tablet by mouth once daily. For cholesterol. ([facility]) famotidine (PEPCID) 40 mg tablet Take 1 tablet by mouth twice daily. amLODIPine (NORVASC) 10 mg tablet Take 1 tablet by mouth once daily. 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 Cruz) losartan (COZAAR) 100 mg tablet Take 1 tablet by mouth once daily. Aspirin 81 mg ORAL Tab Take 81 mg by mouth once daily. ipratropium bromide (ATROVENT) 42 mcg (0.06 %) nasal spray Use 2 Sprays in the nose four times daily as needed. fluticasone (FLONASE) 50 mcg/actuation nasal spray Use 2 Sprays in each nostril once daily as needed. Rinse mouth after use. docusate sodium (COLACE) 100 mg capsule Take 1 capsule by mouth twice daily as needed for Constipation. 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 MRA 07/07/11 Anxiety state, unspecified Ascending aorta dilatation (HCC) 10/14/2015 CT Chest 4.5X3.96cm BENIGN NEOPLASM LG BOWEL 05/08/2005 colon polyps Benign prostatic hyperplasia with urinary retention CAD (coronary artery disease) 08/22/2010 s/p drug eluting stent placement (2) Carotid artery occlusion, right MRI 07/04/11; MRA 07/07/11 Centrilobular emphysema (HCC) 09/25/2022 Depressive disorder, not elsewhere classified Disorder of bone and cartilage, unspecified Elevated prostate specific antigen (PSA) Essential hypertension, benign GASTROINTEST HEMORR NOS 05/08/2005 Hearing loss in left ear Dr. 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 PHYSICAL EXAMINATION: Blood pressure 98/68, pulse 66, temperature 36.8 ?C (98.3 ?F), temperature source Temporal, resp. rate 12, height 172.7 cm (5' 8), weight 75.7 kg (166 lb 12.8 oz), SpO2 94%. GENERAL: WNL nutrition, no deformities, healthy appearing PROBLEM LIST REVIEW: Yes LABS: Results for orders placed or performed in visit on 12/12/23 PSA/PROSTSPECAG DIAG R (more content not included)... Normal [facility] CNPNon 12-14-2023 CNPN Telephone (UROLWS) -- OLGASHASHANK ([id number]) 1945 M Date Time Provider Department 12/14/23 PORSHA MEADOWS During your visit today, we recorded the following information about you: Genna Leonard 12/14/2023 3:14 PM Signed Pts nebra[place]en would like a call regarding 12/12/23 lab results for pt. Maru Faulkner MA 12/14/2023 3:28 PM Signed Results on ISOPSA available. Please review and advise. KATHERINE Carreno Brandon, PA-C 12/14/2023 5:22 PM Signed Please notify patient that his IsoPSA came back at 13.4 % and a PSA of 8.76 The IsoPSA being greater than 6.1% indicates there is a risk of high grade prostate cancer in the next 10 years So a prostate biopsy is recommended. Orders have been placed for biopsy if he wished to have biopsy I will arrange procedure with staff Urologist If he wishes to discuss results I am happy to discuss at visit. ENRIQUE Richard, MT, Sole Armendariz LPN 12/17/2023 5:01 PM Signed Patient notified of results and provider's instructions. Patient verbalizes understanding. Patient wishes to discuss further. Patient sent to scheduling to schedule follow up. Sole Oglesby LPN Allergies As of Date: 12/14/2023 Noted Allergy Reaction PRILOSEC (OMEPRAZOLE MAGNESIUM) 09/27/2010 14 - Other: See Comments Comments: GI upset Date Reviewed: 10/15/2023 Reviewed by: Carla Ulrich MD - Fully Assessed Reason for Visit: Results [95] Prescriptions as of 12/18/2023 - clonazePAM (KLONOPIN) 1 mg tablet Take 1 tablet by mouth daily at bedtime. May also take 1 tablet once daily as needed. Do all this for 90 days. - ipratropium bromide (ATROVENT) 42 mcg (0.06 %) nasal spray Use 2 Sprays in the nose four times daily as needed. - fluticasone (FLONASE) 50 mcg/actuation nasal spray Use 2 Sprays in each nostril once daily as needed. Rinse mouth after use. - traZODone (DESYREL) 100 mg tablet Take 1-2 tablets by mouth daily at bedtime. (Get through [facility] now) - psyllium husk (KONSYL SUGAR-FREE) 6 gram/6 gram powd Take 1 Scoop by mouth once daily as needed. - nitroglycerin sublingual (NITROQUICK) 0.4 mg SL tablet Dissolve 1 tablet under the tongue as needed. FOR CHEST PAIN. IF NO RELIEF CALL 911 - levothyroxine (SYNTHROID) 50 mcg tablet Currently taking 1 pill daily except 1 day a week takes 2 pills (Sunday) ([facility]; dose [facility] to one [facility] by [facility]) - docusate sodium (COLACE) 100 mg capsule Take 1 capsule by mouth twice daily as needed for Constipation. - atorvastatin (LIPITOR) 40 mg tablet Take 1 tablet by mouth once daily. For cholesterol. ([facility]) - famotidine (PEPCID) 40 mg tablet Take 1 tablet by mouth twice daily. - amLODIPine (NORVASC) 10 mg tablet Take 1 tablet by mouth once daily. ([facility] senior mechanical engineer increased dose--Dr. Cruz) - losartan (COZAAR) 100 mg tablet Take 1 tablet by mouth once daily. - Aspirin 81 mg ORAL Tab Take 81 mg by mouth once daily. Problem List As Of Date 12/14/2023 Noted Resolved Disorder of bone and cartilage [M89.9, M94.9] Depression [F32.A] Anxiety [F41.9] Chronic hepatitis C without mention of hepatic *05/08/2005 02/16/2016 ALOPECIA [704.0] 05/08/2005 INT HEMORRHOID W/O COMPL [K64.8] 05/08/2005 COLON POLYP [D12.6] 05/08/2005 ERECTILE DYSFUNCTION [F52.9] 05/08/2005 Hemorrhage of gastrointestinal tract, unspecifi*05/08/2005 02/17/2014 MALAISE AND FATIGUE NEC [R53.81, R53.83] 07/21/2005 PERS HX TOBACCO USE [Z87.891] 12/26/2005 Epidermal Cyst [L72.0] 07/13/2006 BENIGN MICHAEL SKIN FACE NEC [D23.30] 07/13/2006 XANTHALASMA///MIXED HYPERLIPIDEMIA [E78.2] 07/13/2006 XANTHELASMA [H02.60] 07/13/2006 ACNE NEC [L70.8] 07/13/2006 Open wound(s) (multiple) of unspecified site(s)*07/25/2006 09/19/2017 UNCERTAIN BEHAV NEOPL SKIN [D48.5] 08/24/2006 BENIGN MICHAEL SKIN EYELID [D23.10] 08/31/2006 MYALGIA AND MYOSITIS NOS [GDR2285] 04/12/2007 ADJUSTMENT DISORDER WITH DEPRESSED MOOD [F43.21]12/13/2007 VIRAL WARTS NOS [B07.9] 10/20/2008 INSOMNIA NOS [G47.00] 11/03/2008 CHRONIC PAIN NEC [G89.29] 11/03/2008 Fatty liver [K76.0] 08/16/2009 02/17/2014 SUMMARY [V999.95] 08/30/2010 Chest pain [R07.9] 08/30/2010 Melena [K92.1] 08/30/2010 HLD (hyperlipidemia) [E78.5] 08/30/2010 Hypertension goal BP (blood pressure) < 140/90 *08/30/2010 CAD (coronary artery disease), [place] coronary *08/30/2010 S/P coronary artery stent placement [Z95.5] 08/30/2010 Acute gastritis without mention of hemorrhage [*10/10/2010 02/16/2016 Duodenitis without mention of hemorrhage [K29.8*10/10/2010 Sinus bradycardia [R00.1] 04/10/2011 Carotid artery occlusion, 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] History of aneurysm [Z86.79] Hypothyroidism [E03.9] Chronic constipation [K59.09] 10/22/2012 Hepatitis C, chronic (HCC) [B18.2] 11/18/2014 10/25/2015 Encounter for screening colonoscopy [Z12.11] 06/17/2015 Epigastric pain [R10.13] more content not included)... Normal [facility] ISOPSA ASSAY FOR UROLOGY USE ONLYon 12-12-2023 INTERPRETATION View results in Scan juan Documents link when available. Normal [facility] Comment on above: Order Comment: Speci men Type: BLOOD SPECIMENOrdering Facility: [facility] Address: [address] [place] [address] Performed By: #### I SOPSA ####[employer]CLIA [id number] [address] [address] ISOPSA INDEX 13.4 Normal [facility] Comment on above: Order Comment: Speci men Type: BLOOD SPECIMENOrdering Facility: [facility] Address: [address] [place] [address] Performed By: #### I SOPSA ####[employer] [facility]CLIA [id number] [address], [place] [address] TPSA RESULTS 8.760 Normal [facility] Comment on above: Order Comment: Speci men Type: BLOOD SPECIMENOrdering Facility: [facility] Address: [address] [place] [address] Performed By: #### I SOPSA ####[employer]CLIA [id number] [address] [address] PSA SerPl-mCncon 12-12-2023 Prostate specific Ag [Mass/Vol] 8.32 ng/mL High <2.60 [facility] Comment on above: Order Comment: Speci men Type: BLOOD SPECIMENOrdering Facility: [facility] Address: [address] [place] [address] Result Comment: Tota l PSA test methodology used is the Electrochemiluminescence Immunoassay by [employer]. Total PSA values by differing methodologies cannot be interchanged. For an individual patient, the significance of a PSA level should be interpreted in a broad clinical context, including age, race, family history, digital rectal exam, prostate size, results of prior testing (prostate biopsy, free PSA, PCA3), and use of 5-alpha reductase inhibitors. Considering the high incidence of asymptomatic cancer in the general population that may not pose an ultimate risk to a patient, the decision to recommend urological evaluation or prostate biopsy should be individualized after consideration of all these factors. REFERENCE: Yudi Richmond M.D., M.P.H., Lopez Carl M.D., Ph.D., Rafael Plascencia M.D., Leelee Cooper, M.P.H., Mary Alice Jo ScRicardo. Effect of Verification Bias on Screening for Prostate Cancer by Measurement of Prostatic Specific Antigen. N Engl J Med 2003,349:335-42. Performed By: #### 2 [id number] ####[facility] LABCLIA [id number] [place] [address] [place] UA DIP, URINE (POC)on 2022 BILIRUBIN UA (POCT) Negative Negative [facility] CLARITY UA (POCT) Clear [facility] COLOR UA (POCT) Dark yellow [facility] GLUCOSE UA (POCT) Negative Negative mg/dL [facility] Hemoglobin Ql (U) Small Abnormal Negative [facility] KETONE UA (POCT) Negative Negative mg/dL [facility] LEUKOCYTES UA (POCT) Negative Negative [facility] NITRITE UA (POCT) Negative [facility] PH UA (POCT) 5.5 4.5 - 8.0 [facility] Protein Ql (U) Negative Negative mg/dL [facility] SPECIFIC GRAVITY UA (POCT) >=1.030 1.005 - 1.030 [facility] UROBILINOGEN UA (POCT) 0.2 E.U./dL Crystal l E.U./dL [facility] Basophil percentageOrdered B y: Shilpi Ha on 01-11-2023 Creatinine [Mass/Vol] 1.0 mg/dL 0.70-1.30 [facility] No Panel InformationOrdered By: Shilpi Ha on 01-11-2023 Bedside Estimated GFR (eGFR) > 60.0000 mL/min >60 [facility] No Panel Informationon 09-25 LUL25-21% PRE (L/S) 1.49 L/S [facility] FEV1 PRE (L) 3.30 L [facility] FEV1/FVC PRE (%) 63 % [facility] FVC PRE (L) 5.24 L [facility] PEF PRE (L/S) 7.15 L/S [facility] Basophil percentageOrdered B y: Dr. Elkins on 06-24-2022 Cholesterol [Mass/Vol] 119 mg/dL <200 [facility] Comment on above: <200 mg/dL Desirable 200-240 mg/dL Borderline >240 mg/dL High Risk Triglyceride [Mass/Vol] 77 mg/dL <199 [facility] Comment on above: The drugs N-Acetylcy steine and Metamizole may falsely depress this assay.Serum Triglycerides Reference Interval Normal <150 mg/dL Borderline high 150 - 199 mg/dL High 200 - 499 mg/dL Very High > or = 500 mg/dL Serum or plasma cholesterol in HDL measurement (mass/volume)Ordered By: Dr. Elkins on 06-24-2022 Cholesterol in HDL [Mass/Vol] 46 mg/dL >40 [facility] Comment on above: The drugs N-Acetylcy steine and Metamizole may falsely depress this assay. Reference Range HDL <40 mg/dL Low HDL Cholesterol HDL >or= 60 mg/dL High HDL Cholesterol Serum or plasma cholesterol in VLDL measurement (mass/volume)Ordered By: Dr. Elkins on 06-24-2022 Cholesterol in VLDL [Mass/Vol] 15 mg/dL 5-40 [facility] Serum or plasma low density lipoprotein (LDL) cholesterol measurement (mass/volume)Ordered By: Dr. Elkins on 06-24-2022 Cholesterol in LDL [Mass/Vol] 58 mg/dL 0-130 [facility] Absolute lymphocyte countOrd ered By: Dr. Miller on 06-23-2022 Lymphocytes Auto (Unsp spec) [#/Vol] 1.88 10*3/uL 0.83-4.51 [facility] Basophil percentageOrdered B y: Dr. Miller on 06-23-2022 Basophils/100 WBC (Bld) 0.5 % 0-1 [facility] Chloride [Moles/Vol] 106 mmol/L 98-107 [facility] Eosinophils/100 WBC (Bld) 1.8 % 0-5 [facility] Glucose [Mass/Vol] 105 mg/dL 74-106 [facility] Comment on above: Fasting Glucose resu lt from 100 to 125 mg/dL suggests IMPAIRED HOMEOSTASIS per A.D.A. criteria. Neutrophils (Bld) [#/Vol] 5.4 10*3/uL 2.0-7.7 [facility] Neutrophils/100 WBC (Bld) 67.5 % 47-70 [facility] Potassium [Moles/Vol] 4.1 mmol/L 3.5-5.1 [facility] Sodium [Moles/Vol] 142 mmol/L 136-145 [facility] WBC (Bld) [#/Vol] 8.0 10*3/uL 4.4-11.0 [facility] Blood erythrocytes count (nu mber/volume)Ordered By: Dr. Miller on 06-23-2022 RBC (Bld) [#/Vol] 5.45 10*6/uL 4.6-6.2 [facility] Blood hemoglobin measurement (mass/volume)Ordered By: Dr. Miller on 06-23-2022 Hemoglobin (Bld) [Mass/Vol] 16.6 g/dL 13.0-16.5 [facility] Blood lymphocytes/100 leukoc ytesOrdered By: Dr. Miller on 06-23-2022 Lymphocytes/100 WBC (Bld) 23.5 % 19-41 [facility] Blood monocytes/100 leukocyt esOrdered By: Dr. Miller on 06-23-2022 Monocytes/100 WBC (Bld) 6.3 % 0-10 [facility] Blood platelet mean volumeOr dered By: Dr. Miller on 06-23-2022 Platelet mean volume (Bld) [Entitic vol] 10.8 fL 6.2-12.0 [facility] Determination of erythrocyte mean corpuscular volume (MCV)Ordered By: Dr. Miller on 06-23-2022 MCV (RBC) [Entitic vol] 92.1 fL 80-94 [facility] Glucose Glucometer (BldC) [M ass/Vol]Ordered By: Dr. Miller on 06-23-2022 Glucose [Mass/Vol] 106 mg/dL 74-106 [facility] Comment on above: MANAGEMENT OF PATIEN T CARE PER NURSING PROTOCOL Hematocrit Auto (Bld) [Volum e fraction]Ordered By: Dr. Miller on 06-23-2022 Hematocrit (Bld) [Volume fraction] 50.2 % 40-54 [facility] INR in Blood by Coagulation assayOrdered By: Dr. Miller on 06-23-2022 INR Coag (Bld) [Relative time] 1.0 {INR} [facility] Laboratory - Chemistry and C hemistry - challengeOrdered By: Dr. Miller on 06-23-2022 CO2 [Moles/Vol] 32.0 mmol/L 21.0-32.0 [facility] Urea nitrogen/Creatinine [Mass ratio] 17.8 mg/mg 10-20 [facility] Laboratory - CoagulationOrde red By: Dr. Miller on 06-23-2022 aPTT Coag (Bld) [Time] 25.7 s 24.1-36.2 [facility] PT Coag (PPP) [Time] 12.7 s 11.7-14.9 [facility] Laboratory - Hematology and Cell countsOrdered By: Dr. Miller on 06-23-2022 Erythrocyte distribution width (RBC) [Entitic vol] 42.8 fL 35.1-43.9 [facility] Erythrocyte distribution width (RBC) [Ratio] 12.7 % 11.6-14.6 [facility] Immature granulocytes/100 WBC (Bld) 0.400 % 0.0-0.9 [facility] Comment on above: IG% - Immature Granu locytes (promyelocytes, myelocytes and metamyelocytes) > 1% indicates that a LEFT SHIFT is Present. MCH (RBC) [Entitic mass] 30.5 pg 27.0-32.0 [facility] Nucleated RBC/100 WBC (Bld) [Ratio] 0 % 0-5 [facility] MCHC Auto (RBC) [Mass/Vol]Or dered By: Dr. Miller on 06-23-2022 MCHC (RBC) [Mass/Vol] 33.1 g/dL 32-36 [facility] No Panel InformationOrdered By: Dr. Miller on 06-23-2022 Estimated Creatinine Clearance Calc 69.37 ml/min [facility] Estimated GFR (MDRD) Amer 99 mL/min >60 [facility] Comment on above: GFR Calc Estimated GFR (MDRD) Non-Af Amer 82 mL/min >60 [facility] Comment on above: Non- GFR Calc Troponin I High Sensitivity 9 pg/mL 3.0-78.0 [facility] Comment on above: Please Note: [place] t Units and Gender Specific Reference Ranges. For more information see Policy Stat Procedure [place] High Sensitivity Troponin (TNIH) and attachments. Platelets bldOrdered By: Dr. Miller on 06-23-2022 Platelets (Bld) [#/Vol] 186 10*3/uL 150-450 [facility] Serum or plasma calcium marcel urement (mass/volume)Ordered By: Dr. Miller on 06-23-2022 Calcium [Mass/Vol] 9.4 mg/dL 8.5-10.1 [facility] Serum or plasma creatinine m easurement (mass/volume)Ordered By: Dr. Miller on 06-23-2022 Creatinine [Mass/Vol] 0.95 mg/dL 0.70-1.30 [facility] Comment on above: The validity of the calculated GFR & GFRAA in patients over 70 years has not been determined. Clinical correlation is essential. Serum or plasma urea nitroge n measurement (mass/volume)Ordered By: Dr. Miller on 06-23-2022 Urea nitrogen [Mass/Vol] 17 mg/dL 7-18 [facility] Thin prep Papanicolaou smear with manual screeningOrdered By: Dr. Miller on 06-23-2022 Thin prep Papanicolaou smear with manual screening 4 5-15 [facility] Whole blood hemoglobin A1c/t otal hemoglobin ratio (mass fraction)Ordered By: Dr. Elkins on 06-23-2022 HbA1c (Bld) [Mass fraction] 5.8 % 3.8-5.6 [facility] Comment on above: Normal < 5.7 % Predi abetic 5.7 - 6.4 % Diabetic >or= 6.5 % Please note range changes. UA DIP, URINE (POC)on 2021 BILIRUBIN UA (POCT) Small Abnormal Negative [facility] CLARITY UA (POCT) [facility] COLOR UA (POCT) Dark yellow [facility] GLUCOSE UA (POCT) Negative Negative mg/dL [facility] HEMOGLOBIN/BLOOD UA (POCT) Negative Negative [facility] KETONE UA (POCT) Trace Negative mg/dL [facility] LEUKOCYTES UA (POCT) Negative Negative [facility] NITRITE UA (POCT) Negative Negative [facility] PH UA (POCT) 5.5 4.5 - 8.0 [facility] Protein Ql (U) 30 mg/dL Abnormal Negative mg/dL [facility] SPECIFIC GRAVITY UA (POCT) >=1.030 1.005 - 1.030 [facility] UROBILINOGEN UA (POCT) 0.2 E.U./dL Crystal l E.U./dL [facility] Basophil percentageon 2021 Basophil percentage < 0.9 mg/dL 0.70-1.30 [facility] Work Phone: No Panel Informationon 01-02 Bedside Estimated GFR (eGFR) > 60.0000 mL/min >60 [facility] Work Phone: XR Lumbar spine 3 Viewson IMPRESSION: Curvature and spondylosis of the lumbar spine.. 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 RESULT: Findings: For the purposes of this dictation the iliac crests are at the L4-5 level. Right-sided convex curvature of the lumbar spine. Intervertebral disc space narrowing and endplate osteophyte formation at multiple levels in the lumbar spine. No fracture. SI joints are intact. Osteophyte formation involving the right superior acetabulum. Please see the completed CT of the abdomen and pelvis report performed concurrently. 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 RESULT: Findings: For the purposes of this dictation the iliac crests are at the L4-5 level. Right-sided convex curvature of the lumbar spine. Intervertebral disc space narrowing and endplate osteophyte formation at multiple levels in the lumbar spine. No fracture. SI joints are intact. Osteophyte formation involving the right superior acetabulum. Please see the completed CT of the abdomen and pelvis report performed concurrently. IMPRESSION IMPRESSION: Curvature and spondylosis of the lumbar spine.. Rib Matcher And Fitter: HORACIO Transcribe Date/Time: Feb 22 2021 11:44A Dictated by : JENNIFER ZAYAS MD This examination was interpreted and the report reviewed and electronically signed by: JENNIFER ZAYAS MD on Feb 22 2021 11:46AM EST [facility] Radiology Study observation (narrative) [facility] XR Lumbar spine 3 ViewsOrder ed By: [facility] Provider on 02-22-2021 [facility] Vital Signs Date Time Vital Sign Value Performing Clinician Facility 01-05-2025 18:30-0400 Diastolic blood pressure 104 mm[Hg] Dr. Yuval Dorantes MD Work Phone: [facility] 01-05-2025 18:30-0400 Heart rate 79 /min Dr. Yuval Dorantes MD Work Phone: [facility] 01-05-2025 18:30-0400 Respiratory rate 14 /min Dr. Yuval Dorantes MD Work Phone: [phone] [place] [address] 01-05-2025 18:30-0400 SaO2% (BldA) [Mass fraction] 96 % Dr. Yuval Dorantes MD Work Phone: [facility] 01-05-2025 18:30-0400 Systolic blood pressure 116 mm[Hg] Dr. Yuval Dorantes MD Work Phone: [phone])[phone] [place] [address] 01-05-2025 18:00-0400 Inhaled oxygen flow rate 2 L/min Dr. Yuval Dorantes MD Work Phone: [phone] [place] [address] 01-05-2025 17:58-0400 Body temperature 99.3 [degF] Dr. Yuval Dorantes MD Work Phone: [phone])[phone] [place] [address] 01-05-2025 16:31-0400 Body height 177.[address] Yuval Dorantes MD Work Phone: [phone])[phone] [place] [address] 01-05-2025 16:31-0400 Body mass index (BMI) [Ratio] 22.4 kg/m2 Dr. Yuval Dorantes MD Work Phone: [phone])[phone] [place] [address] 01-05-2025 16:31-0400 Body weight [address] Yuval Dorantes MD Work Phone: [facility] 11-25-2024 14:30-0400 Body temperature 98.49 [degF] Andrea Wu MD Work Phone: [facility] 11-25-2024 14:30-0400 Diastolic blood pressure 75 mm[Hg] Andrea Wu MD Work Phone: [facility] 11-25-2024 14:30-0400 Heart rate 67 /min Andrea Wu MD Work Phone: [facility] 11-25-2024 14:30-0400 SaO2% (BldA) [Mass fraction] 95 % Andrea Wu MD Work Phone: [facility] 11-25-2024 14:30-0400 Systolic blood pressure 116 mm[Hg] Andrea Wu MD Work Phone: [facility] 11-18-2024 14:07-0400 Body temperature 98.49 [degF] Andrea Wu MD Work Phone: [facility] 11-18-2024 14:07-0400 Diastolic blood pressure 88 mm[Hg] Andrea Wu MD Work Phone: [facility] 11-18-2024 14:07-0400 Heart rate 72 /min Andrea Wu MD Work Phone: [facility] 11-18-2024 14:07-0400 SaO2% (BldA) [Mass fraction] 98 % Andrea Wu MD Work Phone: [facility] 11-18-2024 14:07-0400 Systolic blood pressure 136 mm[Hg] Andrea Wu MD Work Phone: [facility] 11-11-2024 14:06-0400 Body temperature 98.8 [degF] Andrea Wu MD Work Phone: [facility] 11-11-2024 14:06-0400 Diastolic blood pressure 70 mm[Hg] Andrea Wu MD Work Phone: [facility] 11-11-2024 14:06-0400 Heart rate 73 /min Andrea Wu MD Work Phone: [facility] 11-11-2024 14:06-0400 SaO2% (BldA) [Mass fraction] 95 % Andrea Wu MD Work Phone: [facility] 11-11-2024 14:06-0400 Systolic blood pressure 114 mm[Hg] Andrea Wu MD Work Phone: [facility] 10-29-2024 14:27-0400 Body temperature 98.6 [degF] Andrea Wu MD Work Phone: [facility] 10-29-2024 14:27-0400 Diastolic blood pressure 73 mm[Hg] Andrea Wu MD Work Phone: [facility] 10-29-2024 14:27-0400 Heart rate 69 /min Andrea Wu MD Work Phone: [facility] 10-29-2024 14:27-0400 SaO2% (BldA) [Mass fraction] 97 % Andrea Wu MD Work Phone: [facility] 10-29-2024 14:27-0400 Systolic blood pressure 118 mm[Hg] Andrea Wu MD Work Phone: [facility] 10-22-2024 13:43-0400 Body mass index (BMI) [Ratio] 24.74 kg/m2 Yuval Dorantes MD Work Phone: [facility] 10-22-2024 13:43-0400 Body weight 78.2 kg Yuval Dorantes MD Work Phone: [facility] 10-22-2024 13:43-0400 Diastolic blood pressure 60 mm[Hg] Yuval Dorantes MD Work Phone: [facility] 10-22-2024 13:43-0400 Heart rate 70 /min Yuval Dorantes MD Work Phone: [facility] 10-22-2024 13:43-0400 Respiratory rate 14 /min Yuval Dorantes MD Work Phone: [facility] 10-22-2024 13:43-0400 SaO2% (BldA) [Mass fraction] 97 % Yuval Dorantes MD Work Phone: [facility] 10-22-2024 13:43-0400 Systolic blood pressure 116 mm[Hg] Yuval Dorantes MD Work Phone: [facility] 10-01-2024 11:57-0400 Body height 177.8 cm An Henley Jr., MD Work Phone: [facility] 10-01-2024 11:57-0400 Heart rate 74 /min An Henley Jr., MD Work Phone: [facility] 10-01-2024 11:57-0400 SaO2% (BldA) [Mass fraction] 95 % An Henley Jr., MD Work Phone: [facility] 09-15-2024 14:49-0500 Diastolic blood pressure 80 mm[Hg] An Henley Jr., MD Work Phone: [facility] 09-15-2024 14:49-0500 Heart rate 73 /min An Henley Jr., MD Work Phone: [facility] 09-15-2024 14:49-0500 SaO2% (BldA) [Mass fraction] 97 % An Henley Jr., MD Work Phone: [facility] 09-15-2024 14:49-0500 Systolic blood pressure 122 mm[Hg] An Henley Jr., MD Work Phone: [facility] 08-11-2024 12:47-0500 Body mass index (BMI) [Ratio] 25.39 kg/m2 Caral Ulrich MD Work Phone: [facility] 08-11-2024 12:47-0500 Body weight 75.75 kg Carla Ulrich MD Work Phone: [facility] 08-11-2024 12:47-0500 Diastolic blood pressure 64 mm[Hg] Carla Ulrich MD Work Phone: [facility] 08-11-2024 12:47-0500 Heart rate 68 /min Carla Ulrich MD Work Phone: [facility] 08-11-2024 12:47-0500 Respiratory rate 12 /min Carla Ulrich MD Work Phone: [facility] 08-11-2024 12:47-0500 SaO2% (BldA) [Mass fraction] 96 % Carla Ulrich MD Work Phone: [facility] 08-11-2024 12:47-0500 Systolic blood pressure 98 mm[Hg] Carla Ulrich MD Work Phone: [facility] 07-30-2024 15:40-0500 Body mass index (BMI) [Ratio] 25.14 kg/m2 Yuval Dorantes MD Work Phone: [facility] 07-30-2024 15:40-0500 Body temperature 98.1 [degF] Yuval Dorantes MD Work Phone: [facility] 07-30-2024 15:40-0500 Body weight 75 kg Yuval Dorantes MD Work Phone: [facility] 07-30-2024 15:40-0500 Diastolic blood pressure 78 mm[Hg] Yuval Dorantes MD Work Phone: [facility] 07-30-2024 15:40-0500 Heart rate 69 /min Yuval Dorantes MD Work Phone: [facility] 07-30-2024 15:40-0500 Respiratory rate 16 /min Yuval Dorantes MD Work Phone: [facility] 07-30-2024 15:40-0500 SaO2% (BldA) [Mass fraction] 97 % Yuval Dorantes MD Work Phone: [facility] 07-30-2024 15:40-0500 Systolic blood pressure 130 mm[Hg] Yuval Dorantes MD Work Phone: [facility] 07-21-2024 14:21-0500 Diastolic blood pressure 81 mm[Hg] Dr. Yuval Dorantes MD Work Phone: [facility] 07-21-2024 14:21-0500 Heart rate 71 /min Dr. Yuval Dorantes MD Work Phone: [facility] 07-21-2024 14:21-0500 Respiratory rate 16 /min Dr. Yuval Dorantes MD Work Phone: [facility] 07-21-2024 14:21-0500 SaO2% (BldA) [Mass fraction] 98 % Dr. Yuval Dorantes MD Work Phone: [facility] 07-21-2024 14:21-0500 Systolic blood pressure 99 mm[Hg] Dr. Yuval Dorantes MD Work Phone: [facility] 07-21-2024 12:21-0500 Body height 177.[address] Yuval Dorantes MD Work Phone: [facility] 07-21-2024 12:21-0500 Body mass index (BMI) [Ratio] 23.3 kg/m2 Dr. Yuval Dorantes MD Work Phone: [facility] 07-21-2024 12:21-0500 Body temperature 97.5 [degF] Dr. Yuval Dorantes MD Work Phone: [facility] 07-21-2024 12:21-0500 Body weight 73.[address] Yuval Dorantes MD Work Phone: [facility] 06-24-2024 12:49-0500 Body mass index (BMI) [Ratio] 25.06 kg/m2 Porsha Meadows PA-C Work Phone: [facility] 06-24-2024 12:49-0500 Body weight 74.75 kg Porsha Meadows PA-C Work Phone: [facility] 06-24-2024 12:49-0500 Diastolic blood pressure 78 mm[Hg] Porsha Meadows PA-C Work Phone: [facility] 06-24-2024 12:49-0500 Heart rate 67 /min Porsha Meadows PA-C Work Phone: [facility] 06-24-2024 12:49-0500 SaO2% (BldA) [Mass fraction] 95 % Porsha Meadows PA-C Work Phone: [facility] 06-24-2024 12:49-0500 Systolic blood pressure 128 mm[Hg] Porsha Meadows PA-C Work Phone: [facility] 06-18-2024 13:31-0500 Body mass index (BMI) [Ratio] 24.81 kg/m2 Yuval Dorantes MD Work Phone: [facility] 06-18-2024 13:31-0500 Body weight 74 kg Yuval Dorantes MD Work Phone: [facility] 06-18-2024 13:31-0500 Diastolic blood pressure 60 mm[Hg] Yuval Dorantes MD Work Phone: [facility] 06-18-2024 13:31-0500 Heart rate 68 /min Yuval Dorantes MD Work Phone: [facility] 06-18-2024 13:31-0500 SaO2% (BldA) [Mass fraction] 98 % Yuval Dorantes MD Work Phone: [facility] 06-18-2024 13:31-0500 Systolic blood pressure 118 mm[Hg] Yuval Dorantes MD Work Phone: [facility] 04-16-2024 09:57-0400 Body mass index (BMI) [Ratio] 24.78 kg/m2 Mae Click 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.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 Work Phone: [facility] 04-16-2024 09:57-0400 Body weight 73.94 kg Mae Click 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.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 Work Phone: [facility] 04-16-2024 09:57-0400 Diastolic blood pressure 64 mm[Hg] Mae Click 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.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 Work Phone: [facility] 04-16-2024 09:57-0400 Heart rate 64 /min Mae Click 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.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 Work Phone: [facility] 04-16-2024 09:57-0400 Respiratory rate 15 /min Mae Click 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.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 Work Phone: [facility] 04-16-2024 09:57-0400 SaO2% (BldA) [Mass fraction] 96 % Mae Click 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.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 Work Phone: [facility] 04-16-2024 09:57-0400 Systolic blood pressure 102 mm[Hg] Mae Click 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.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 Work Phone: [facility] 03-04-2024 13:05-0400 Body mass index (BMI) [Ratio] 24.94 kg/m2 Pulm Wstr Work Phone: [facility] 03-04-2024 13:05-0400 Body weight 74.39 kg Pulm Wstr Work Phone: [facility] 03-04-2024 13:05-0400 Heart rate 72 /min Pulm Wstr Work Phone: [facility] 03-04-2024 13:05-0400 Respiratory rate 12 /min Pulm Wstr Work Phone: [facility] 03-04-2024 13:05-0400 SaO2% (BldA) [Mass fraction] 93 % Pulm Wstr Work Phone: [facility] 01-31-2024 15:34-0400 Body height 172.7 cm Yuval Dorantes MD Work Phone: [facility] 01-31-2024 15:34-0400 Body mass index (BMI) [Ratio] 24.48 kg/m2 Yuval Dorantes MD Work Phone: [facility] 01-31-2024 15:34-0400 Body temperature 97.9 [degF] Yuval Dorantes MD Work Phone: [facility] 01-31-2024 15:34-0400 Body weight 73.03 kg Yuval Dorantes MD Work Phone: [facility] 01-31-2024 15:34-0400 Diastolic blood pressure 66 mm[Hg] Yuval Dorantes MD Work Phone: [facility] 01-31-2024 15:34-0400 Heart rate 57 /min Yuval Dorantes MD Work Phone: [facility] 01-31-2024 15:34-0400 Respiratory rate 12 /min Yuval Dorantes MD Work Phone: [facility] 01-31-2024 15:34-0400 SaO2% (BldA) [Mass fraction] 98 % Yuval Dorantes MD Work Phone: [facility] 01-31-2024 15:34-0400 Systolic blood pressure 134 mm[Hg] Yuval Dorantes MD Work Phone: [facility] 01-01-2024 16:26-0400 Body height 172.7 cm Porsha Meadows PA-C Work Phone: [facility] 01-01-2024 16:26-0400 Body mass index (BMI) [Ratio] 25.36 kg/m2 Porsha Meadows PA-C Work Phone: [facility] 01-01-2024 16:26-0400 Body temperature 98.29 [degF] Porsha Meadows PA-C Work Phone: [facility] 01-01-2024 16:26-0400 Body weight 75.66 kg Porsha Meadows PA-C Work Phone: [facility] 01-01-2024 16:26-0400 Diastolic blood pressure 68 mm[Hg] Porsha Meadows PA-C Work Phone: [facility] 01-01-2024 16:26-0400 Heart rate 66 /min Porsha Meadows PA-C Work Phone: [facility] 01-01-2024 16:26-0400 Respiratory rate 12 /min Porsha Meadows PA-C Work Phone: [facility] 01-01-2024 16:26-0400 SaO2% (BldA) [Mass fraction] 94 % Porsha Meadows PA-C Work Phone: [facility] 01-01-2024 16:26-0400 Systolic blood pressure 98 mm[Hg] Porsha Meadows PA-C Work Phone: [facility] 10-15-2023 09:16-0400 Body height 172.7 cm Carla Ulrich MD Work Phone: [facility] 10-15-2023 09:16-0400 Body weight 76.84 kg Carla Ulrich MD Work Phone: [facility] 10-15-2023 09:16-0400 Diastolic blood pressure 70 mm[Hg] Carla Ulrich MD Work Phone: [facility] 10-15-2023 09:16-0400 Heart rate 72 /min Carla Ulrich MD Work Phone: [facility] 10-15-2023 09:16-0400 Respiratory rate 12 /min Carla Ulrich MD Work Phone: [facility] 10-15-2023 09:16-0400 SaO2% (BldA) [Mass fraction] 98 % Carla Ulrich MD Work Phone: [facility] 10-15-2023 09:16-0400 Systolic blood pressure 110 mm[Hg] Carla Ulrich MD Work Phone: [facility] 06-19-2023 10:04-0500 Body height 177.8 cm Porsha Meadows PA-C Work Phone: [facility] 06-19-2023 10:04-0500 Body temperature 98.29 [degF] Porsha Meadows PA-C Work Phone: [facility] 06-19-2023 10:04-0500 Body weight 77.11 kg Porsha Meadows PA-C Work Phone: [facility] 06-19-2023 10:04-0500 Diastolic blood pressure 82 mm[Hg] Porsha Meadows PA-C Work Phone: [facility] 06-19-2023 10:04-0500 Heart rate 84 /min Porsha Meadows PA-C Work Phone: [facility] 06-19-2023 10:04-0500 Respiratory rate 14 /min Porsha Meadows PA-C Work Phone: [facility] 06-19-2023 10:04-0500 SaO2% (BldA) [Mass fraction] 96 % Porsha Meadows PA-C Work Phone: [facility] 06-19-2023 10:04-0500 Systolic blood pressure 136 mm[Hg] Porsha Meadows PA-C Work Phone: [facility] 12-26-2022 10:50-0400 Body height 177.[address] Yuval Dorantes Work Phone: [facility] 12-26-2022 10:50-0400 Body mass index (BMI) [Ratio] 23.9 kg/m2 Dr. Yuval Dorantes Work Phone: [facility] 12-26-2022 10:50-0400 Body weight 75.[address] Yuval Dorantes Work Phone: [facility] 12-26-2022 10:50-0400 Diastolic blood pressure 73 mm[Hg] Dr. Yuval Dorantes Work Phone: [facility] 12-26-2022 10:50-0400 Heart rate 96 /min Dr. Yuval Dorantes Work Phone: [facility] 12-26-2022 10:50-0400 Respiratory rate 18 /min Dr. Yuval Dorantes Work Phone: [facility] 12-26-2022 10:50-0400 SaO2% (BldA) [Mass fraction] 94 % Dr. Yuval Dorantes Work Phone: [facility] 12-26-2022 10:50-0400 Systolic blood pressure 137 mm[Hg] Dr. Yuval Dorantes Work Phone: [facility] 10-06-2022 16:39-0400 Body temperature 98.8 [degF] Yuval Dorantes MD Work Phone: [facility] 10-06-2022 16:39-0400 Body weight 78.93 kg Yuval Dorantes MD Work Phone: [facility] 10-06-2022 16:39-0400 Diastolic blood pressure 62 mm[Hg] Yuval Dorantes MD Work Phone: [facility] 10-06-2022 16:39-0400 Heart rate 69 /min Yuval Dorantes MD Work Phone: [facility] 10-06-2022 16:39-0400 Respiratory rate 18 /min Yuval Dorantes MD Work Phone: [facility] 10-06-2022 16:39-0400 SaO2% (BldA) [Mass fraction] 96 % Yuval Dorantes MD Work Phone: [facility] 10-06-2022 16:39-0400 Systolic blood pressure 108 mm[Hg] Yuval Dorantes MD Work Phone: [facility] 09-25-2022 15:00-0400 Diastolic blood pressure 68 mm[Hg] Carla Ulrich MD Work Phone: [facility] 09-25-2022 15:00-0400 Systolic blood pressure 120 mm[Hg] Carla Ulrich MD Work Phone: [facility] 09-25-2022 14:35-0400 Body height 173.9 cm Pulm Wstr Work Phone: [facility] 09-25-2022 14:35-0400 Body weight 77.11 kg Pulm Wstr Work Phone: [facility] 09-25-2022 14:35-0400 Heart rate 68 /min Pulm Wstr Work Phone: [facility] 09-25-2022 14:35-0400 Respiratory rate 14 /min Pulm Wstr Work Phone: [facility] 09-25-2022 14:35-0400 SaO2% (BldA) [Mass fraction] 95 % Pulm Wstr Work Phone: [facility] 08-29-2022 11:49-0500 Body temperature 97.59 [degF] Mae Ray PA-C Work Phone: [facility] 08-29-2022 11:49-0500 Body weight 77.11 kg Mae Ray PA-C Work Phone: [facility] 08-29-2022 11:49-0500 Diastolic blood pressure 75 mm[Hg] Mae Friedmanhl PA-C Work Phone: [facility] 08-29-2022 11:49-0500 Heart rate 68 /min Mae Idaliahl PA-C Work Phone: [facility] 08-29-2022 11:49-0500 Respiratory rate 16 /min Mae Micahfahl PA-C Work Phone: [facility] 08-29-2022 11:49-0500 SaO2% (BldA) [Mass fraction] 96 % Mae Micahfahl PA-C Work Phone: [facility] 08-29-2022 11:49-0500 Systolic blood pressure 125 mm[Hg] Mae Friedmanhl PA-C Work Phone: [facility] 07-04-2022 14:58-0500 Body temperature 98.91 [degF] Mae Friedmanhl PA-C Work Phone: [facility] 07-04-2022 14:58-0500 Body weight 75.39 kg Mae Obrienfahl PA-C Work Phone: [facility] 07-04-2022 14:58-0500 Diastolic blood pressure 64 mm[Hg] Mae Friedmanhl PA-C Work Phone: [facility] 07-04-2022 14:58-0500 Heart rate 60 /min Mae Friedmanhl PA-C Work Phone: [facility] 07-04-2022 14:58-0500 Respiratory rate 16 /min Mae Micahfahl PA-C Work Phone: [facility] 07-04-2022 14:58-0500 SaO2% (BldA) [Mass fraction] 98 % Mae Micahfahl PA-C Work Phone: [facility] 07-04-2022 14:58-0500 Systolic blood pressure 102 mm[Hg] Mae Friedmanhl PA-C Work Phone: [facility] 06-24-2022 13:30-0500 Body height 177.[address] Yuval Dorantes Work Phone: [facility] 06-24-2022 13:30-0500 Body weight 74.[address] Yuval Dorantes Work Phone: [facility] 06-24-2022 08:15-0500 Body temperature 97.3 [degF] Dr. Yuval Dorantes Work Phone: [facility] 06-24-2022 08:15-0500 Diastolic blood pressure 76 mm[Hg] Dr. Yuval Dorantes Work Phone: [facility] 06-24-2022 08:15-0500 Heart rate 56 /min Dr. Yuval Dorantes Work Phone: [phone] [place] [address] 06-24-2022 08:15-0500 Respiratory rate 20 /min Dr. Yuval Dorantes Work Phone: [facility] 06-24-2022 08:15-0500 SaO2% (BldA) [Mass fraction] 94 % Dr. Yuval Dorantes Work Phone: [facility] 06-24-2022 08:15-0500 Systolic blood pressure 105 mm[Hg] Dr. Yuval Dorantes Work Phone: [facility] 06-24-2022 03:33-0500 Body mass index (BMI) [Ratio] 23.6 kg/m2 Dr. Yuval Dorantes Work Phone: [facility] 06-23-2022 15:04-0500 Body temperature 97.6 [degF] [facility] Work Phone: 06-23-2022 15:04-0500 Diastolic blood pressure 103 mm[Hg] [facility] Work Phone: 06-23-2022 15:04-0500 Heart rate 61 /min [facility] Work Phone: 06-23-2022 15:04-0500 Respiratory rate 16 /min [facility] Work Phone: 06-23-2022 15:04-0500 Systolic blood pressure 127 mm[Hg] [facility] Work Phone: 06-23-2022 15:00-0500 SaO2% (BldA) [Mass fraction] 92 % [facility] Work Phone: 06-23-2022 13:09-0500 Body height 178 cm [facility] Work Phone: 06-23-2022 13:09-0500 Body mass index (BMI) [Ratio] 23.8 kg/m2 [facility] Work Phone: 06-23-2022 13:09-0500 Body weight 75.47 kg [facility] Work Phone: 06-13-2022 15:30-0500 Body height 177.8 cm Porsha Meadows PA-C Work Phone: [facility] 06-13-2022 15:30-0500 Body temperature 98.4 [degF] Porsha Meadows PA-C Work Phone: [facility] 06-13-2022 15:30-0500 Body weight 76.2 kg Porsha Meadows PA-C Work Phone: [facility] 06-13-2022 15:30-0500 Diastolic blood pressure 82 mm[Hg] Porsha Meadows PA-C Work Phone: [facility] 06-13-2022 15:30-0500 Heart rate 72 /min Porsha Meadows PA-C Work Phone: [facility] 06-13-2022 15:30-0500 Respiratory rate 14 /min Porsha Meadows PA-C Work Phone: [facility] 06-13-2022 15:30-0500 SaO2% (BldA) [Mass fraction] 95 % Porsha Meaodws PA-C Work Phone: [facility] 06-13-2022 15:30-0500 Systolic blood pressure 124 mm[Hg] Porsha Meadows PA-C Work Phone: [facility] 12-09-2021 11:01-0400 Body weight 74.84 kg Yuval Dorantes MD Work Phone: [facility] 10-17-2021 16:47-0400 Body temperature 98.4 [degF] Irasema Murcia 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.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 Work Phone: [facility] 10-17-2021 16:47-0400 Body weight 75.75 kg Irasema Murcia 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.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 Work Phone: [facility] 10-17-2021 16:47-0400 Diastolic blood pressure 86 mm[Hg] Irasema Murcia 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.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 Work Phone: [facility] 10-17-2021 16:47-0400 Heart rate 96 /min Irasema Murcia 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.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 Work Phone: [facility] 10-17-2021 16:47-0400 Respiratory rate 16 /min Irasema Murcia 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.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 Work Phone: [facility] 10-17-2021 16:47-0400 SaO2% (BldA) [Mass fraction] 95 % Irasema Murcia 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.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 Work Phone: [facility] 10-17-2021 16:47-0400 Systolic blood pressure 124 mm[Hg] Irasema Murcia 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.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 Work Phone: [facility] 08-09-2021 10:49-0500 Body weight 77.56 kg Yuval Dorantes MD Work Phone: [facility] 08-09-2021 10:49-0500 Diastolic blood pressure 78 mm[Hg] Yuval Dorantes MD Work Phone: [facility] 08-09-2021 10:49-0500 Heart rate 72 /min Yuval Dorantes MD Work Phone: [facility] 08-09-2021 10:49-0500 Respiratory rate 16 /min Yuval Dorantes MD Work Phone: [facility] 08-09-2021 10:490500 Systolic blood pressure 126 mm[Hg] Yuval Dorantes MD Work Phone: [facility] Encounters Encounter Date Encounter Type Care Provider Facility Start: 01-05-2025 Evaluation and manag ement of inpatient Dr. Sulema Schulzt MD -Progressive Care Unit Work Phone: Start: 01-05-[address] Yuval Dorantes MD Work Phone: [facility] Work Phone: Start: 01-05-2025 End: 01-05-2025 Follow-up encounter Andrea Wu MD Work Phone: [facility]iation [facility]cology Comment on above: Radiotherapy follow- up (Primary Dx); Prostate cancer (HCC) Start: 01-05-2025 End: 01-05-2025 Telemedicine consultation with patient Andrea Wu MD Work Phone: [facility] Start: 12-04-2024 End: 12-11-2024 Patient encounter procedure Andrea Wu MD Work Phone: [facility] Start: 12-04-2024 End: 12-11-2024 Radiation Oncology Note Andrea Wu MD Work Phone: [facility]cology Comment on above: Completion Note Start: 12-04-2024 End: 12-04-2024 ambulatory YUVAL D ELLIOTTAMPAS Facility:[facility] Start: 12-03-2024 End: 12-03-2024 ambulatory YUVAL D TALAMPAS Facility:[facility] Start: 12-02-2024 End: 12-02-2024 ambulatory YUVAL D TALAMPAS Facility:[facility] Start: 12-01-2024 End: 12-01-2024 ambulatory YUVAL D TALAMPAS Facility:[facility] Start: 11-28-2024 End: 11-28-2024 ambulatory YUVAL D TALAMPAS Facility:[facility] Start: 11-27-2024 End: 11-27-2024 ambulatory YUVAL D TALAMPAS Facility:[facility] Start: 11-26-2024 End: 11-26-2024 ambulatory YUVAL D TALAMPAS Facility:[facility] Start: 11-25-2024 End: 11-25-2024 Patient encounter procedure Andrea Wu MD Work Phone: Radiation Oncology Comment on above: Prostate cancer (HCC ) (Primary Dx) Start: 11-25-2024 End: 11-25-2024 ambulatory ANDREA WU Facility:[facility] Start: 11-24-2024 End: 11-24-2024 ambulatory YUVAL D TALAMPAS Facility:[facility] Start: 11-21-2024 End: 11-21-2024 ambulatory YUVAL D TALAMPAS Facility:[facility] Start: 11-20-2024 End: 11-20-2024 Telephone encounter Andrea Wu MD Work Phone: Radiation Oncology Comment on above: Results Start: 11-20-2024 End: 11-20-2024 ambulatory YUVAL D TALAMPAS Facility:[facility] Start: 11-19-2024 End: 11-19-2024 ambulatory ANDREA WU Facility:[facility] Start: 11-18-2024 End: 11-18-2024 Patient encounter procedure Andrea Wu MD Work Phone: Radiation Oncology Comment on above: Prostate cancer (HCC ) (Primary Dx); Urinary frequency Start: 11-18-2024 End: 11-18-2024 ambulatory ANDREA WU Facility:[facility] Start: 11-17-2024 End: 11-17-2024 ambulatory YUVAL D TALAMPAS Facility:[facility] Start: 11-14-2024 End: 11-14-2024 Orders Only Andrea Wu MD Work Phone: Radiation Oncology Start: 11-13-2024 End: 11-13-2024 ambulatory YUVAL D TALAMPAS Facility:[facility] Start: 11-12-2024 End: 11-12-2024 ambulatory YUVAL D TALAMPAS Facility:[facility] Start: 11-11-2024 End: 11-11-2024 Patient encounter procedure Andrea Wu MD Work Phone: Radiation Oncology Comment on above: Prostate cancer (HCC ) (Primary Dx) Start: 11-11-2024 End: 11-11-2024 ambulatory ANDREA WU Facility:[facility] Start: 11-10-2024 End: 11-10-2024 ambulatory YUVAL D TALAMPAS Facility:[facility] Start: 11-07-2024 End: 11-07-2024 ambulatory YUVAL D TALAMPAS Facility:[facility] Start: 11-06-2024 End: 11-06-2024 ambulatory YUVAL D TALAMPAS Facility:[facility] Start: 11-05-2024 End: 11-05-2024 ambulatory DADANIEL LISANDRO Facility:[facility] Start: 11-04-2024 End: 11-04-2024 ambulatory YUVAL D TALAMPAS Facility:[facility] Start: 11-03-2024 End: 11-03-2024 ambulatory YUVAL D TALAMPAS Facility:[facility] Start: 10-31-2024 End: 10-31-2024 ambulatory YUVAL D TALAMPAS Facility:[facility] Start: 10-30-2024 End: 10-30-2024 ambulatory YUVAL D TALAMPAS Facility:[facility] Start: 10-29-2024 End: 10-29-2024 Patient encounter procedure Andrea Wu MD Work Phone: Radiation Oncology Comment on above: Prostate cancer (HCC ) (Primary Dx) Start: 10-29-2024 End: 10-29-2024 ambulatory YUVAL D TALAMPAS Facility:[facility] Start: 10-28-2024 End: 10-28-2024 ambulatory YUVAL D TALAMPAS Facility:[facility] Start: 10-22-2024 End: 10-22-2024 Office outpatient visit 40 minutes Yuval Dorantes MD Work Phone: Internal Medicine [place] Comment on above: Psychophysiological insomnia (Primary Dx); Prostate cancer (HCC); Anxiety; Essential (primary) hypertension; Centrilobular emphysema (HCC) Start: 10-22-2024 End: 10-22-2024 ambulatory YUVAL D TALAMPAS Facility:[facility] Start: 10-20-2024 End: 10-23-2024 Patient encounter procedure Andrea Wu MD Work Phone: Radiation Oncology Start: 10-20-2024 End: 10-23-2024 Radiation Oncology Note Andrea Wu MD Work Phone: Radiation Oncology Comment on above: Simulation Note Treatment Planning Start: 10-20-2024 End: 10-20-2024 ambulatory YUVAL DORANTES Facility:[facility] Start: 10-20-2024 End: 10-20-2024 Nursing evaluation of patient and report Nurse [facility] Work Phone: Radiation Oncology Comment on above: Prostate cancer (HCC ) (Primary Dx) Start: 10-15-2024 End: 10-16-2024 Telephone encounter Andrea Wu MD Work Phone: Radiation Oncology Comment on above: Patient Update Start: 10-15-2024 End: 10-15-2024 ambulatory YUVAL DORANTES Facility:[facility] Start: 10-15-2024 End: 10-15-2024 Patient encounter procedure Andrea Wu MD Work Phone: Radiation Oncology Comment on above: Prostate cancer (HCC ) Start: 10-06-2024 ambulatory AN VERMA JR Facility:[facility] Start: 10-06-2024 End: 10-06-2024 Subsequent hospital visit by physician Injection [facility] [place] [facility] CT Comment on above: Prostate cancer (HCC ) [C61] Start: 10-01-2024 End: 10-01-2024 Telephone encounter Andrea Wu MD Work Phone: Radiation Oncology Comment on above: New Patient Start: 10-01-2024 End: 10-01-2024 Patient encounter procedure An Henley MD Work Phone: [facility] Comment on above: Prostate cancer (HCC ) (Primary Dx); Dysuria Start: 10-01-2024 End: 10-01-2024 ambulatory AN HENLEY JR Facility:[facility] Start: 09-23-2024 End: 09-23-[address] Yuval Dorantes MD Work Phone: [facility] Work Phone: Start: 09-23-2024 End: 09-23-[address] Jarod Davies MD - Cardiovascular Services Work Phone: Start: 09-23-2024 End: 09-23-2024 ambulatory Yuval Dorantes Facility:[facility] Start: 09-15-2024 End: 09-15-2024 Patient encounter procedure An Henley MD Work Phone: Urology Comment on above: Benign prostatic hyp erplasia with urinary retention (Primary Dx); Elevated prostate specific antigen (PSA) Start: 09-15-2024 End: 09-15-2024 ambulatory AN HENLEY JR Facility:[facility] Start: 09-12-2024 End: 09-12-2024 E-mail encounter from caregiver An Henley Jr., MD Work Phone: [facility] Start: 09-12-2024 End: 09-12-2024 Patient encounter procedure An Henley MD Work Phone: [facility] Comment on above: upcoming appointment Start: 08-11-2024 End: 08-11-2024 ambulatory YUVAL DORANTES Facility:[facility] Start: 08-11-2024 End: 08-11-2024 Patient encounter procedure Carla Ulrich MD Work Phone: Pulmonary Medicine Comment on above: Lung nodules (Primar y Dx); Pleural plaque without asbestos; Centrilobular emphysema (HCC) Start: 07-30-2024 End: 07-30-2024 Office outpatient visit 15 minutes Yuval Dorantes MD Work Phone: Internal Medicine [place] Comment on above: Viral gastroenteriti s (Primary Dx); Essential (primary) hypertension; Centrilobular emphysema (HCC) Start: 07-30-2024 End: 07-30-2024 ambulatory YUVAL DORANTES Facility:[facility] Start: 07-30-2024 End: 07-30-2024 Subsequent hospital visit by physician Jess [facility] (I-Stat) Work Phone: Cat Scan Comment on above: Lung nodules [R91.8] Start: 07-21-2024 End: 07-21-2024 ambulatory Yuval Dorantes MD Work Phone: Internal Medicine [place] Comment on above: Diarrhea Start: 07-21-2024 End: 07-21-2024 Emergency department patient visit Dr. Harley Quintana DO -Emergency Department Work Phone: Start: 07-17-2024 End: 07-28-2024 Telephone encounter Yuval Dorantes MD Work Phone: Internal Medicine [place] Comment on above: Patient Question Start: 06-24-2024 End: 06-24-2024 Telephone encounter An Henley MD Work Phone: [facility] Comment on above: Appointment Start: 06-24-2024 End: 06-24-2024 ambulatory PORSHA MEADOWS Facility:[facility] Start: 06-24-2024 End: 06-24-2024 Patient encounter procedure Porsha Meadows PA-C Work Phone: Urology Comment on above: Elevated prostate sp ecific antigen (PSA) (Primary Dx) Start: 06-19-2024 End: 06-19-2024 Telephone encounter Porsha Meadows PA-C Work Phone: Urology Comment on above: Orders; Appointment Start: 06-18-2024 End: 06-18-2024 ambulatory YUVAL DORANTES Facility:[facility] Start: 06-18-2024 End: 06-18-2024 ambulatory YUVAL DORANTES Facility:[facility] Start: 06-18-2024 End: 06-18-2024 Office outpatient visit 25 minutes Yuval Dorantes MD Work Phone: Internal Medicine [place] Comment on above: Acquired hypothyroid ism (Primary Dx); Psychophysiological insomnia; Memory deficit; Anxiety; Encounter for immunization; Chronic obstructive pulmonary disease, unspecified COPD type (HCC); Essential (primary) hypertension; Need for vaccination Start: 04-17-2024 End: 04-18-2024 Telephone encounter Mae Patel APRN.CNP Work Phone: Pulmonary Medicine Comment on above: Patient Question Start: 04-16-2024 End: 04-16-2024 ambulatory MAE PATEL Facility:[facility] Start: 04-16-2024 End: 04-16-2024 Office outpatient visit 40 minutes Mae Patel 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.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 Work Phone: Pulmonary Medicine Comment on above: Centrilobular emphys valeria (HCC) (Primary Dx); Lung nodules Start: 04-14-2024 End: 04-14-2024 Telephone encounter Genna Cheney PA-C Work Phone: [facility] Comment on above: Patient Question Start: 03-14-2024 End: 03-14-2024 Telephone encounter Carla Ulrich MD Work Phone: Pulmonary Medicine Comment on above: Orders (Need to move chest CT up. New nodule on outside chest CT) Start: 03-12-2024 End: 03-14-2024 Telephone encounter Carla Ulrich MD Work Phone: Pulmonary Medicine Comment on above: Results Start: 03-11-2024 End: 03-11-2024 Telephone encounter Carla Ulrich MD Work Phone: Pulmonary Medicine Start: 03-07-2024 End: 03-12-2024 Telephone encounter Yuval Dorantes MD Work Phone: Internal Medicine [place] Comment on above: lung testing results Start: 03-05-2024 End: 03-05-2024 ambulatory YUVAL DORANTES Facility:[facility] Start: 03-05-2024 End: 03-05-2024 Patient encounter procedure Minoo Casanova 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.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 Work Phone: Internal Medicine [place] Comment on above: Centrilobular emphys valeria (HCC) (Primary Dx) Start: 03-04-2024 End: 03-04-2024 ambulatory Pulm Lab [facility] Work Phone: PULM LAB [facility] Comment on above: Spirometry Start: 03-04-2024 End: 03-04-2024 Patient encounter procedure [facility] Work Phone: PULM LAB [facility] Start: 01-31-2024 End: 01-31-2024 Office outpatient visit 25 minutes uYval Dorantes MD Work Phone: Internal Medicine [place] Comment on above: Acute bronchitis, un specified organism (Primary Dx); Psychophysiological insomnia; Constipation, unspecified constipation type; Chronic cough; Hyperinflation of lungs; SANDHU (dyspnea on exertion); Anxiety Start: 01-31-2024 End: 01-31-2024 ambulatory YUVAL DORANTES Facility:[facility] Start: 01-30-2024 ambulatory Yuval douglas MD Work Phone: Internal Medicine [place] Comment on above: Constipation Start: 01-25-2024 Telephone encounter Ketan maldonado MD Work Phone: Urology Comment on above: Patient Update Start: 01-23-2024 End: 01-24-2024 ambulatory Shane Pineda Facility:[facility] Start: 01-10-2024 End: 01-10-2024 ambulatory Yuval Dorantes [place] [place] Start: 01-03-2024 Telephone encounter An Henley MD Work Phone: Urology Comment on above: Prostate Biopsy Sche duling Start: 01-01-2024 End: 01-01-2024 Patient encounter procedure Porsha Meadows PA-C Work Phone: Urology Comment on above: Elevated prostate sp ecific antigen (PSA) (Primary Dx) Start: 01-01-2024 End: 01-01-2024 ambulatory PORSHA MEADOWS Facility:[facility] Start: 12-14-2023 Telephone encounter Porsha bruno PA-C Work Phone: Urology Comment on above: Results Start: 12-12-2023 End: 12-12-2023 ambulatory PORSHA MEADOWS Facility:[facility] Start: 12-05-2023 Telephone encounter Porsha bruno PA-C Work Phone: Cardiology Comment on above: Patient Update Start: 11-07-2023 ambulatory Carla Ulrich MD Work Phone: Pulmonary Medicine Comment on above: Chest CT Start: 11-07-2023 E-mail encounter fro m caregiver Carla Ulrich MD Work Phone: Pulmonary Medicine Start: 11-07-2023 Telephone encounter Carla Ulrich MD Work Phone: Pulmonary Medicine Comment on above: Results Start: 10-31-2023 End: 10-31-2023 Subsequent hospital visit by physician Ct [facility] (I-Stat) Work Phone: Cat Scan Comment on above: Lung nodules [R91.8] Start: 10-15-2023 Telephone encounter Carla Ulrich MD Work Phone: Pulmonary Medicine Comment on above: Patient Question Results (Review of c hest CTs) Start: 10-15-2023 End: 10-15-2023 Patient encounter procedure Carla Ulrich MD Work Phone: Pulmonary Medicine Comment on above: Centrilobular emphys valeria (HCC) (Primary Dx); Lung nodule; Former cigarette smoker Start: 10-05-2023 End: 10-05-2023 Office outpatient visit 25 minutes Yuval Dorantes MD Work Phone: Internal Medicine [place] Comment on above: Psychophysiological insomnia (Primary Dx); Anxiety; Primary hypertension Start: 08-07-2023 End: 08-07-2023 ambulatory [facility] Work Phone: Start: 08-07-2023 End: 08-07-2023 Patient encounter procedure [facility] Work Phone: Start: 06-19-2023 End: 06-19-2023 Patient encounter procedure Porsha Meadows PA-C Work Phone: Urology Comment on above: Elevated prostate sp ecific antigen (PSA) (Primary Dx); Benign prostatic hyperplasia with urinary retention Start: 01-11-2023 End: 01-11-[address] Yuval Dorantes Work Phone: [facility] Work Phone: Start: 01-11-2023 End: 01-11-[address] Yuval Dorantes [facility] Phone[facility] Start: 12-26-2022 End: 12-26-[address] Yuval Dorantes Work Phone: [facility] Work Phone: Start: 10-06-2022 End: 10-06-2022 Office outpatient visit 25 minutes Yuval Dorantes MD Work Phone: Internal Medicine [place] Comment on above: Psychophysiological insomnia (Primary Dx); Centrilobular emphysema (HCC); Anxiety Start: 09-26-2022 Telephone encounter Carla Ulrich MD Work Phone: Pulmonary Medicine Comment on above: Results (Labs) Start: 09-25-2022 End: 09-25-2022 ambulatory [facility] Comment on above: Spirometry Start: 09-25-2022 End: 09-25-2022 Patient encounter procedure [facility] Work Phone: [facility] Comment on above: Centrilobular emphys valeria (HCC) (Primary Dx); Former cigarette smoker Start: 09-08-2022 Telephone encounter Mae Ray PA-C Work Phone: Neurology Comment on above: Faxed to [facility] Start: 08-30-2022 Telephone encounter Mae Ray PA-C Work Phone: Neurology Comment on above: Outside Testing Start: 08-29-2022 End: 08-29-2022 Patient encounter procedure Mae Ray PA-C Work Phone: Neurology Comment on above: TIA (transient ische vida attack) (Primary Dx); Risk factors for obstructive sleep apnea; Shortness of breath; Imbalance Start: 08-15-2022 End: 08-15-[address] Yuval Dorantes Work Phone: [facility] Work Phone: Start: 08-15-2022 End: 08-15-[address] Yuval Dorantes Work Phone: [facility]-Pulmonary Services/Neurology Start: 07-26-2022 Telephone encounter Mae FERGUSON-C Work Phone: Neurology Comment on above: Cardiac Heart Monito r Start: 07-10-2022 E-mail encounter sarah asher caregiver Mae FERGUSON-C Work Phone: [facility] Start: 07-10-2022 Follow-up encounter Mae FERGUSON-C Work Phone: Neurology Comment on above: Follow up Start: 07-04-2022 End: 07-04-2022 Patient encounter procedure Mae FERGUSON-C Work Phone: Neurology Comment on above: TIA (transient ische vida attack) (Primary Dx); Hyperglycemia, unspecified Start: 07-04-2022 Telephone encounter Mae FERGUSON-C Work Phone: Neurology Comment on above: Orders (Cardiac rao tor ) Start: 07-03-2022 Telephone encounter Porsha bruno PA-C Work Phone: Urology Comment on above: Results Start: 06-30-2022 Telephone encounter Minoo ramirez APRN.CNP Work Phone: Internal Medicine [place] Comment on above: Results Start: 06-26-2022 Patient Outreach More Pearson LPN I nternal Medicine [place] Comment on above: Transition Of Care Start: 06-24-2022 Non-patient / Non-visit Dr. Elsa Dorantes Work Phone: [facility] Start: 06-24-2022 Non-patient / Non-visit Dr. Elsa Dorantes Work Phone: [facility] Start: 06-23-2022 Non-patient / Non-visit Dr. Elsa Dorantes Work Phone: [facility] Start: 06-23-2022 End: 06-24-2022 Evaluation and management of inpatient [facility]-Progressive Care Unit Start: 06-13-2022 End: 06-13-2022 Patient encounter procedure Porsha Meadows PA-C Work Phone: Urology Comment on above: Elevated prostate sp ecific antigen (PSA) (Primary Dx); Benign prostatic hyperplasia with urinary retention Start: 06-09-2022 Orders Only Porsha Meadows PA-C Work Phone: Urology Comment on above: Elevated prostate sp ecific antigen (PSA) (Primary Dx) Start: 02-14-2022 Telephone encounter Yuval nieto MD Work Phone: Internal Medicine [place] Comment on above: Patient Question Start: 01-02-2022 End: 01-02-2022 Patient encounter procedure [facility] Start: 12-09-2021 End: 12-09-2021 Office outpatient visit 25 minutes Yuval Dorantes MD Work Phone: Internal Medicine [place] Comment on above: Mixed hyperlipidemia (Primary Dx); Acquired hypothyroidism; Hypertension goal BP (blood pressure) < 140/90; Renal cyst, right; Psychophysiological insomnia; Anxiety Start: 10-18-2021 Telephone encounter Estee hayes PA-C Work Phone: [facility] Comment on above: Results Start: 10-17-2021 End: 10-17-2021 Patient encounter procedure Irasema Murcia APRN.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 Work Phone: [facility] Comment on above: Viral illness (Prima ry Dx); Nausea vomiting and diarrhea; Fever, unspecified Start: 09-08-2021 Patient encounter procedure [facility] Start: 08-09-2021 End: 08-09-2021 Patient encounter procedure Yuval Dorantes MD Work Phone: Internal Medicine [place] Comment on above: Mixed hyperlipidemia (Primary Dx); Hypertension goal BP (blood pressure) < 140/90; Acquired hypothyroidism; Right leg pain; Anxiety; Psychophysiological insomnia; Problems with smell and taste; Medication management Start: 02-22-2021 End: 02-22-2021 Subsequent hospital visit by physician [facility] [place] Work Phone: Radiology Comment on above: 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 Yuval Dorantes MD Work Phone: Start: 01-05-2025 CT angiography of he ad and neck Dr. Yuval Dorantes MD Work Phone: Start: 01-05-2025 CT of head without contrast Dr. Yuval Dorantes MD Work Phone: Start: 10-06-[address] attenuation skull base mid-thigh An Henley MD Work Phone: Start: 10-01-2024 Urnls dip stick/tabl et rgnt auto w/o microscopy An Henley MD Work Phone: Start: 09-15-2024 Urnls dip stick/tabl et rgnt auto w/o microscopy An Henley MD Work Phone: Start: 03-04-2024 Co diffusing capacity L carina Dorantes MD Work Phone: Start: 06-19-2023 Urnls dip stick/tabl et rgnt auto w/o microscopy Porsha Meadows PA-C Work Phone: Start: 01-11-2023 CT angiography of ch est with contrast Dr. Yuval Dorantes Work Phone: Start: 09-25-2022 Brncdilat rspse spmt ry pre&post-brncdilat admn Carla Ulrich MD Work Phone: Start: 06-23-2022 MRI of brain without contrast Dr. Yuval Dorantes Work Phone: Start: 06-23-2022 Plain chest X-ray Start: 06-23-2022 CT angiography of he ad and neck Start: 06-23-2022 CT of head without contrast Start: 06-13-2022 Urnls dip stick/tabl et rgnt auto w/o microscopy Porsha Meadows PA-C Work Phone: Start: 01-02-2022 CT angiography of ch est with contrast Start: 02-22-2021 Radex spine lumbosac ral 2/3 views Valerie Alvarez 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.LINTER OPERATOR Work Phone: Start: 10-03-2016 Colonoscopy Irasema alfonso 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.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 Work Phone: Start: 08-30-2010 History of placement of stent for coronary artery disease S/P coronary artery stent placement Irasema Murcia 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.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 Work Phone: Plan of Treatment Date Care Activity Detail Author Start: 07-04-2027 LIPID SCREEN LIPID SCREEN [facility] Start: 12-02-2026 LIPID SCREEN LIPID SCREEN [facility] Start: 10-03-2026 Colonoscopy COLONOSCOPY [facility] Start: 10-03-2026 COLORECTAL CANCER SCREENING COLORECTAL CANCER SCREENING [facility] Start: 12-02-2025 BP Controlled (<130/80) BP Controlle d (<130/80) [facility] Start: 11-25-2025 BP Controlled (<130/80) BP Controlle d (<130/80) [facility] Start: 11-11-2025 BP Controlled (<130/80) BP Controlle d (<130/80) [facility] Start: 10-29-2025 BP Controlled (<130/80) BP Controlle d (<130/80) [facility] Start: 10-22-2025 Annual PCP Team Manager Instrumentation swapna Disease Visit Annual PCP Team Chronic Disease Visit [facility] Start: 10-22-2025 BP Controlled (<130/80) BP Controlle d (<130/80) [facility] Start: 08-12-2025 End: 08-12-2025 Patient encounter procedure 08/12/2025 1:00 PM EST Appointment Cat Scan [address] [place] [address] Lung nodules [R91.8]; Pleural plaque without asbestos [J92.9] Cat Scan Comment on above: Lung nodules [R91.8] ; Pleural plaque without asbestos [J92.9] Start: 08-11-2025 BP Controlled (<130/80) BP Controlle d (<130/80) [facility] Start: 08-11-2025 End: 09-10-2025 CT Chest WO contrast CT CHEST WO IVCON Radiology Routine Lung nodules Pleural plaque without asbestos Expected: 08/11/2025, Expires: 09/10/2025 [place] Work Phone: Comment on above: Expected: 08/11/2025 , Expires: 09/10/2025 Start: 07-30-2025 Annual PCP Team Manager Instrumentation swapna Disease Visit Annual PCP Team Chronic Disease Visit [facility] Start: 07-30-2025 Screening for malign ant neoplasm of lung Lung Cancer Screening [facility] Start: 07-06-2025 End: 07-06-2025 Patient encounter procedure 07/06/2025 11:00 AM EST Office Visit [facility] [place] [address] [place], [place] [id number] Yuval Dorantes MD [address] [place], [place] [id number] 4 month follow up [facility] [place] Comment on above: 4 month follow up Start: 07-04-2025 DIABETES SCREEN DIABETES SCREEN [facility] Start: 07-04-2025 Diabetes Screening Diabetes Screenin g [facility] Start: 06-27-2025 DIABETES SCREEN DIABETES SCREEN [facility] Start: 06-24-2025 BP Controlled (<130/80) BP Controlle d (<130/80) [facility] Start: 06-18-2025 Annual PCP Team Manager Instrumentation swapna Disease Visit Annual PCP Team Chronic Disease Visit [facility] Start: 06-18-2025 BP Controlled (<130/80) BP Controlle d (<130/80) [facility] Start: 06-08-2025 LIPID SCREEN LIPID SCREEN [facility] Start: 04-16-2025 BP Controlled (<130/80) BP Controlle d (<130/80) [facility] Start: 04-08-2025 End: 04-08-2025 Patient encounter procedure 04/08/2025 1:15 PM EDT Office Visit [facility] [address] [place] [id number] An Henley Jr., MD [address] [place] [address] follow up with pet/ct and PSA prior [facility] Comment on above: follow up with pet/c t and PSA prior Start: 04-03-2025 End: 07-03-2025 Prostate specific Ag [Mass/volume] in Serum or Plasma PROSTATE-SPECIFIC ANTIGEN DIAGNOSTIC Lab Routine Prostate cancer (HCC) Expected: 04/03/2025, Expires: 07/03/2025 [facility] Comment on above: Expected: 04/03/2025 , Expires: 07/03/2025 Start: 03-05-2025 Annual PCP Team Manager Instrumentation swapna Disease Visit Annual PCP Team Chronic Disease Visit [facility] Start: 02-25-2025 End: 02-25-2025 Patient encounter procedure 02/25/2025 11:00 AM EDT Office Visit [facility] [place] [address] [place] [address] Yuval Dorantes MD [address] [place] [address] 4 month follow up [facility] [place] Comment on above: 4 month follow up Start: 02-24-2025 End: 02-24-2025 Patient encounter procedure 02/24/2025 11:00 AM EDT Office Visit [facility] [place] [address] [place] [address] Yuval Dorantes MD [address] [place] [address] 4 month f/up [facility] [place] Comment on above: 4 month f/up Start: 01-30-2025 Annual PCP Team Manager Instrumentation swapna Disease Visit Annual PCP Team [facility] [facility] Start: 01-06-2025 Thyroid stimulating hormone measurement [facility] Start: 01-05-2025 [facility] Start: 01-05-2025 MRI of brain without contrast Brain without Contrast [facility] Start: 01-05-2025 Verification routine [facility] Start: 01-05-2025 Admission procedure [facility] Start: 01-05-2025 Hospital admission, emergency, from emergency room, medical nature [facility] Start: 01-05-2025 Oxygen therapy [facility] Start: 01-05-2025 [facility] Start: 01-05-2025 End: 01-05-2025 Follow-up encounter 01/05/2025 1:00 PM EDT [facility] [address] [place], [place] [id number] Andrea Wu MD [address] [place] [address] 4 WK FOLLOW UP AFTER RADIATION* Radiation Oncology Comment on above: 4 WK FOLLOW UP AFTER RADIATION* Start: 12-31-2024 BP Controlled (<130/80) BP Controlle d (<130/80) [facility] Start: 12-04-2024 End: 12-04-2024 Patient encounter procedure Radiation Oncology Comment on above: Location: [facility] Start: 12-03-2024 End: 12-03-2024 Patient encounter procedure Radiation Oncology Comment on above: Location: [facility] Location: W-ON TREAT MENT VISIT Start: 12-02-2024 DIABETES SCREEN DIABETES SCREEN [facility] Start: 12-02-2024 End: 12-02-2024 Patient encounter procedure Radiation Oncology Comment on above: [facility] Location: W-ON TREAT MENT VISIT Start: 12-01-2024 End: 12-01-2024 Patient encounter procedure Radiation Oncology Comment on above: Location: [facility] Start: 11-28-2024 End: 11-28-2024 Patient encounter procedure Radiation Oncology Comment on above: Location: [facility] Start: 11-27-2024 End: 11-27-2024 Patient encounter procedure Radiation Oncology Comment on above: Location: [facility] Start: 11-26-2024 End: 11-26-2024 Patient encounter procedure Radiation Oncology Comment on above: Location: [facility] Location: W-ON TREAT MENT VISIT Start: 11-25-2024 End: 11-25-2024 Patient encounter procedure Radiation Oncology Comment on above: Location: [facility] Location: W-ON TREAT MENT VISIT Start: 11-24-2024 End: 11-24-2024 Patient encounter procedure Radiation Oncology Comment on above: Location: [facility] Start: 11-21-2024 End: 11-21-2024 Patient encounter procedure Radiation Oncology Comment on above: Location: [facility] Start: 11-20-2024 End: 11-20-2024 Patient encounter procedure Radiation Oncology Comment on above: Location: [facility] Start: 11-19-2024 End: 11-19-2024 Patient encounter procedure Radiation Oncology Comment on above: Location: [facility] Location: W-ON TREAT MENT VISIT tent time needs urinalysis don e after tx Start: 11-18-2024 End: 02-17-2025 Urinalysis complete panel - Urine URINALYSIS (WITH MICROSCOPIC) WITH CULTURE IF INDICATED Lab Routine Urinary frequency Expected: 11/18/2024, Expires: 02/17/2025 [place] Work Phone: Comment on above: Expected: 11/18/2024 , Expires: 02/17/2025 Start: 11-18-2024 End: 11-18-2024 Patient encounter procedure Radiation Oncology Comment on above: Location: [facility] 1130 tomorrow? 1115 tomorrow Start: 11-17-2024 Covid-19 Vaccine ( season) Covid-19 Vaccine () [facility] Start: 11-17-2024 End: 11-17-2024 Patient encounter procedure Radiation Oncology Comment on above: Location: [facility] Start: 11-14-2024 End: 11-14-2024 Patient encounter procedure Radiation Oncology Comment on above: Location: [facility] Start: 11-13-2024 End: 11-13-2024 Patient encounter procedure Radiation Oncology Comment on above: Location: [facility] Start: 11-12-2024 End: 11-12-2024 Patient encounter procedure Radiation Oncology Comment on above: Location: [email or web address] Location: W-ON TREAT MENT VISIT Start: 11-11-2024 End: 11-11-2024 Patient encounter procedure 11/11/2024 2:00 PM EDT Appointment Radiation Oncology [address] [place] [address] Location: [email or web address] Comment on above: Location: [email or web address] Start: 11-10-2024 End: 11-10-2024 Patient encounter procedure 11/10/2024 2:00 PM EDT Appointment Radiation Oncology [address] [place] [address] Location: [email or web address] Comment on above: Location: [email or web address] Start: 11-07-2024 End: 11-07-2024 Patient encounter procedure 11/07/2024 2:00 PM EDT Appointment Radiation Oncology [address] [place] [address] Location: [email or web address] Comment on above: Location: [email or web address] Start: 11-06-2024 End: 11-06-2024 Patient encounter procedure 11/06/2024 2:00 PM EDT Appointment Radiation Oncology [address] [place] [address] Location: [email or web address] Comment on above: Location: [facility] Start: 11-05-2024 End: 11-05-2024 Patient encounter procedure Radiation Oncology Comment on above: Location: [facility] Location: W-ON TREAT MENT VISIT Start: 11-04-2024 End: 11-04-2024 Patient encounter procedure 11/04/2024 2:00 PM EDT Appointment Radiation Oncology [address] [place] [address] Location: [email or web address] Comment on above: Location: [email or web address] Start: 11-03-2024 End: 11-03-2024 Patient encounter procedure 11/03/2024 2:00 PM EDT Appointment Radiation Oncology [address] [place], [place] [id number] Location: [email or web address] Comment on above: Location: [email or web address] Start: 10-31-2024 End: 10-31-2024 Patient encounter procedure 10/31/2024 2:00 PM EDT Appointment Radiation Oncology [address] [place] [address] Location: [facility] Rad[facility] On[facility] Comment on above: Location: [facility] Start: 10-30-2024 End: 10-30-2024 Patient encounter procedure 10/30/2024 2:00 PM EDT Appointment Radiation Oncology [address] [place] [address] Location: [facility] On[facility] Comment on above: Location: [email or web address] Start: 10-30-2024 Screening for malign ant neoplasm of lung Lung Cancer Screening [facility] Start: 10-29-2024 End: 10-29-2024 Patient encounter procedure Radiation Oncology Comment on above: Location: [facility] Location: W-ON TREAT MENT VISIT Start: 10-28-2024 End: 10-28-2024 Patient encounter procedure Radiation Oncology Comment on above: Location: [facility] wants early afternoo n Start: 10-22-2024 End: 10-22-2024 Patient encounter procedure 10/22/2024 1:40 PM EDT Office Visit Internal Medicine [place] [address] [facility] [place] [address] Yuval Dorantes MD [address] [facility] [place] [address] 4 month follow up Internal Medicine [place] Comment on above: 4 month follow up Start: 10-20-2024 End: 10-20-2024 Patient encounter procedure 10/20/2024 1:00 PM EDT Office Visit Radiation Oncology [address] [place], [place] [phone] Andrea Wu MD [address] [place], [place] [address] Prostate sim full bladder Radiation Oncology Comment on above: Prostate sim full bl adder Start: 10-20-2024 End: 10-20-2024 Nursing evaluation of patient and report 10/20/2024 12:30 PM EDT Nurse Visit Radiation Oncology [address] [place] [address] Wstr, Nurse Radt [facility] [address] [place] [address] Needs consent. May do SIM before education depend on bladder Radiation Oncology Comment on above: Needs consent. May d o SIM before education depend on bladder Start: 10-15-2024 End: 10-15-2024 Patient encounter procedure 10/15/2024 10:30 AM EDT Office Visit Radiation Oncology [address] [place] [phone] Andrea Wu MD [address] [place] [phone] MINIATURE SET DESIGNER/PROSTATE CANCER(HCC) [C61]/REF BY An Henley Jr., MD*this date and time per patient Radiation Oncology Comment on above: MINIATURE SET DESIGNER/PROSTATE CANCER(H CC) [C61]/REF BY An Henley Jr., MD*this date and time per patient Start: 10-14-2024 BP Controlled (<130/80) BP Controlle d (<130/80) [facility] Start: 10-06-2024 End: 10-06-2024 Patient encounter procedure Mobile PET CT Comment on above[phone] in ofc Start: 10-04-2024 Annual PCP Team Manager Instrumentation swapna Disease Visit Annual PCP Team Chronic Disease Visit [facility] Start: 10-01-2024 End: 10-01-2024 Patient encounter procedure 10/01/2024 12:15 PM EDT Office Visit [facility] [address] [place] [address] An Henley Jr., MD [address] [place], [place] [address] fu appt ok per [facility] Comment on above: fu appt ok per Hipolito Start: 09-15-2024 End: 09-15-2024 Patient encounter procedure 09/15/2024 3:30 PM EST Office Visit Urology [address] [place] [phone] An Henley Jr., MD [address] [place] [address] Elevated prostate specific antigen (PSA) [R97.20] Urology Comment on above: Elevated prostate sp ecific antigen (PSA) [R97.20] Start: 08-18-2024 End: 08-18-2024 Patient encounter procedure 08/18/2024 3:30 PM EST Office Visit Urology [address] [place] [phone] [place] [address] [place] [phone] Elevated prostate specific antigen (PSA) [R97.20] Urology Comment on above: Elevated prostate sp ecific antigen (PSA) [R97.20] Start: 08-11-2024 End: 08-11-2024 Patient encounter procedure 08/11/2024 12:45 PM EST Office Visit Pulmonary Medicine [address] [place], [place] [phone] Carla Ulrich MD [address] [facility] [place] [address] 3 month f/u- review CT *07/21/24 Pulmonary Medicine Comment on above: 3 month f/u- review CT *07/21/24 Start: 07-30-2024 End: 07-30-2024 Patient encounter procedure Cat Scan Comment on above: Lung nodules [R91.8] ; Centrilobular emphysema (HCC) [J43.2] er follow up norovir us [facility]: [facility] Start: 07-21-2024 End: 04-13-2025 CT Chest WO contrast CT CHEST WO IVCON Radiology Routine Lung nodules Centrilobular emphysema (HCC) Expected: 07/21/2024, Expires: 04/13/2025 [place] Work Phone: Comment on above: Expected: 07/21/2024 , Expires: 04/13/2025 Start: 07-21-2024 Enteric precautions [facility] Start: 07-21-2024 Enteric precautions [facility] Start: 07-21-2024 End: 07-21-2024 Patient encounter procedure 07/21/2024 11:00 AM EST Appointment Cat Scan [address] [facility] [place], [place] [address] Lung nodules [R91.8]; Centrilobular emphysema (HCC) [J43.2] Cat Scan Comment on above: Lung nodules [R91.8] ; Centrilobular emphysema (HCC) [J43.2] Start: 07-18-2024 End: 07-18-2024 Patient encounter procedure 07/18/2024 1:40 PM EST Office Visit Internal Medicine [place] [address] [place] [address] Yuval Dorantes MD [address] [place], [place] [phone] follow up Internal Medicine [place] Comment on above: follow up Start: 07-16-2024 Advance Directive Discussion Advance Directive Discussion [facility] Start: 06-24-2024 End: 06-24-2024 Patient encounter procedure 06/24/2024 1:00 PM EST Office Visit Urology [address] [place] [address] Porsha Meadows PA-C [address] [place] [address] 1 year Urology Comment on above: 1 year Start: 06-19-2024 End: 09-18-2024 Prostate specific Ag [Mass/volume] in Serum or Plasma PSA/PROSTSPECAG DIAG Lab Routine Elevated prostate specific antigen (PSA) Benign prostatic hyperplasia with urinary retention Expected: 06/19/2024 (Approximate), Expires: 09/18/2024 [place] Work Phone: Comment on above: Expected: 06/19/2024 (Approximate), Expires: 09/18/2024 Start: 06-18-2024 End: 06-18-2024 Patient encounter procedure 06/18/2024 1:40 PM EST Office Visit Internal Medicine [place] [address] [place], [place] [address] Yuval Dorantes MD [address] [place] [address] 4 month follow up Internal Medicine [place] Comment on above: 4 month follow up Start: 06-15-2024 Annual PCP Team Manager Instrumentation swapna Disease Visit Annual PCP Team Chronic Disease Visit [facility] Start: 06-15-2024 Covid-19 Vaccine ( season) Covid-19 Vaccine ( season) [facility] Comment on above: Postponed from 03/16 (Declined at this time) Start: 06-15-2024 RSV Vaccine (1 - 1-d ose 60+ series) RSV Vaccine (1 - 1-dose 60+ series) [facility] Comment on above: Postponed from 01/04 (Declined at this time) Start: 06-15-2024 RSV Vaccine (1 - 1-d ose 75+ series) RSV Vaccine (1 - 1-dose 75+ series) [facility] Comment on above: Postponed from 01/04 (Declined at this time) Start: 06-15-2024 Urine microalbumin profile DTaP,Tdap,Td Vaccine (1 - Tdap) [facility] Comment on above: Postponed from 02/14 (Declined at this time) Start: 04-16-2024 End: 04-16-2024 Patient encounter procedure 04/16/2024 10:00 AM EDT Office Visit Pulmonary Medicine [address] [place] [address] Mae Patel APRN.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 [address] [place] [address] follow up Pulmonary Medicine Comment on above: follow up Start: 03-16-2024 Covid-19 Vaccine ( season) Covid-19 Vaccine () [facility] Start: 03-16-2024 Influenza vaccination Influenza Vacc ine (#1) [facility] Start: 03-05-2024 End: 03-05-2024 Patient encounter procedure 03/05/2024 10:00 AM EDT Office Visit Internal Medicine [place] [address] [place], [place] [phone] Minoo Casanova APRN.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 [address] [place], [place] [phone] [employer] [facility] Internal Medicine [place] Comment on above: [employer] [address] Start: 03-04-2024 End: 03-04-2024 ambulatory [facility] Comment on above: Acute bronchitis, un specified organism [J20.9]; Chronic cough [R05.3]; Hyperinflation of lungs [R09.89]; SANDHU (dyspnea on exertion) [R06.09] Start: 02-23-2024 DIABETES SCREEN DIABETES SCREEN [facility] Start: 02-05-2024 End: 02-05-2024 Patient encounter procedure 02/05/2024 2:00 PM EDT Office Visit Internal Medicine [place] [address] [facility], [place] [phone] Yuval Dorantes MD [address] [place], [place] [phone] 4 month follow up Internal Medicine [place] Comment on above: 4 month follow up Start: 01-31-2024 End: 01-31-2024 Patient encounter procedure 01/31/2024 3:00 PM EDT Office Visit Internal Medicine [place] [address] [facility], [place] [phone] Yuval Dorantes MD [address] [facility], [place] [phone] 4 month follow up, Constipation- last BM 1 week ago. [facility] Medicine [place] Comment on above: 4 month follow up, C onstipation- last BM 1 week ago. Start: 01-30-2024 End: 01-30-2024 Patient encounter procedure 01/30/2024 2:00 PM EDT Office Visit Urology [address] [place] [address] Ketan Schulz MD [address] [place] [address] Elevated prostate specific antigen (PSA) [R97.20] Urology Comment on above: Elevated prostate sp ecific antigen (PSA) [R97.20] Start: 01-01-2024 End: 01-01-2024 Patient encounter procedure 01/01/2024 3:30 PM EDT Office Visit Urology [address] [place] [phone] Porsha Meadows PA-C [address] [place] [address] follow up PSA results possible biopsy Urology Comment on above: follow up PSA result s possible biopsy Start: 12-23-2023 Covid-19 Vaccine () Covid-19 Vaccine ( season) [facility] Start: 12-19-2023 End: 03-19-2024 Prostate specific Ag [Mass/volume] in Serum or Plasma PSA/PROSTSPECAG DIAG Lab Routine Elevated prostate specific antigen (PSA) Expected: 12/19/2023 (Approximate), Expires: 03/19/2024 [place] Work Phone: Comment on above: Expected: 12/19/2023 (Approximate), Expires: 03/19/2024 Start: 12-19-2023 End: 12-19-2023 ambulatory 12/19/2023 1:00 PM EDT Results Only [place] [facility] [address] [place] [phone] Elevated prostate specific antigen (PSA) [R97.20]; Benign prostatic hyperplasia with urinary retention [N40.1, R33.8] [place] [facility] Comment on above: Elevated prostate sp ecific antigen (PSA) [R97.20]; Benign prostatic hyperplasia with urinary retention [N40.1, R33.8] Start: 12-12-2023 End: 03-12-2024 ISOPSA ASSAY FOR UROLOGY USE ONLY [place] Work Phone: Comment on above: Expected: 12/12/2023 (Approximate), Expires: 03/12/2024 Start: 10-07-2023 ANNUAL PCP TEAM MAINTENANCE PLANNING CLERK SWAPNA DISEASE VISIT ANNUAL PCP TEAM CHRONIC DISEASE VISIT [facility] Start: 10-07-2023 BP CONTROLLED (<130/80) BP CONTROLLE D (<130/80) [facility] Start: 09-26-2023 BP CONTROLLED (<130/80) BP CONTROLLE D (<130/80) [facility] Start: 08-29-2023 BP CONTROLLED (<130/80) BP CONTROLLE D (<130/80) [facility] Start: 07-16-2023 Advance Directive Discussion Advance Directive Discussion [facility] Start: 07-04-2023 BP CONTROLLED (<130/80) BP CONTROLLE D (<130/80) [facility] Start: 07-04-2023 Hepatitis B surface antibody level LDL CHOLESTEROL [facility] Start: 07-03-2023 FECAL OCCULT BLOOD FECAL OCCULT BLOO D [facility] Start: 06-27-2023 ANNUAL PCP TEAM MAINTENANCE PLANNING CLERK SWAPNA DISEASE VISIT ANNUAL PCP TEAM CHRONIC DISEASE VISIT [facility] Start: 06-27-2023 BP CONTROLLED (<130/80) BP CONTROLLE D (<130/80) [facility] Start: 04-03-2023 ANNUAL PCP TEAM MAINTENANCE PLANNING CLERK SWAPNA DISEASE VISIT ANNUAL PCP TEAM CHRONIC DISEASE VISIT [facility] Start: 04-03-2023 BP CONTROLLED (<130/80) BP CONTROLLE D (<130/80) [facility] Start: 04-03-2023 Influenza vaccination LUNG CANCER [facility] Comment on above: Postponed from 01/04 (Declined at this time) Start: 04-03-2023 Urine microalbumin profile DTAP,TDAP,TD (1 - Tdap) [facility] Comment on above: Postponed from 02/14 (Declined at this time) Start: 12-09-2022 ANNUAL PCP TEAM MAINTENANCE PLANNING CLERK SWAPNA DISEASE VISIT ANNUAL PCP TEAM CHRONIC DISEASE VISIT [facility] Start: 12-09-2022 BP CONTROLLED (<130/80) BP CONTROLLE D (<130/80) [facility] Start: 12-02-2022 Hepatitis B surface antibody level LDL CHOLESTEROL [facility] Start: 09-25-2022 End: 11-25-2022 Alpha 1 antitrypsin [Mass/volume] in Serum or Plasma [place] Work Phone: Comment on above: Expected: 09/25/2022 , Expires: 11/25/2022 Start: 08-09-2022 ANNUAL PCP TEAM MAINTENANCE PLANNING CLERK SWAPNA DISEASE VISIT ANNUAL PCP TEAM CHRONIC DISEASE VISIT [facility] Start: 07-16-2022 ADVANCE DIRECTIVE DISCUSSION ADVANCE DIRECTIVE DISCUSSION [facility] Start: 07-04-2022 End: 09-03-2022 Hemoglobin A1c in Blood [place] Work Phone: Comment on above: Expected: 07/04/2022 , Expires: 09/03/2022 Start: 07-04-2022 End: 09-03-2022 LIPID PANEL, NONFASTING [place] Work Phone: Comment on above: Expected: 07/04/2022 , Expires: 09/03/2022 Start: 06-26-2022 End: 08-26-2022 Prostate specific Ag [Mass/volume] in Serum or Plasma PSA/PROSTSPECAG DIAG Lab Routine Elevated prostate specific antigen (PSA) Expected: 06/26/2022 (Approximate), Expires: 08/26/2022 [place] Work Phone: Comment on above: Expected: 06/26/2022 (Approximate), Expires: 08/26/2022 Start: 06-24-2022 Patient discharge [facility] Start: 06-23-2022 Cardiac monitoring [facility] Start: 06-23-2022 Catheterization of vein [facility] Start: 06-23-2022 Continuous pulse oximetry [facility] Start: 06-23-2022 Elevation of head of bed [facility] Start: 06-23-2022 Exercises [facility] Start: 06-23-[address] anned interventions [facility] Start: 06-23-2022 Notification of physician [facility] Start: 06-23-2022 Oxygen therapy [facility] Start: 06-23-2022 Patient referral to dietitian [facility] Start: 06-23-2022 Referral to occupati onal therapist [facility] Start: 06-23-2022 Referral to service [facility] Start: 06-23-2022 Speech therapy assessment [facility] Start: 06-23-2022 Tobacco use cessatio n education [facility] Start: 06-23-2022 [facility] Start: 06-23-2022 Following clinical pathway protocol [facility] Start: 06-23-2022 MRI of brain without contrast Brain without Contrast [facility] Work Phone: Start: 06-23-2022 Admission procedure [facility] Start: 06-23-2022 Oxygen therapy [facility] Work Phone: Start: 06-23-2022 [facility] Work Phone: Start: 06-23-2022 [facility] Start: 03-16-2022 Influenza vaccination INFLUENZA (#1) [facility] Start: 02-16-2022 COVID-19 VACCINE (5 - Booster for Pfizer series) COVID-19 VACCINE (5 - Booster for Pfizer series) [facility] Start: 2022 RSV Vaccine (1 - 1-d ose 75+ series) RSV Vaccine (1 - 1-dose 75+ series) [facility] Start: 10-17-2021 End: 10-31-2021 Influenza virus A and B RNA and SARS-CoV-2 (COVID-19) N gene panel - Respiratory specimen by RANJAN with probe detection COVID WITH FLUA+B, ROUTINE Microbiology Routine Viral illness Nausea vomiting and diarrhea Fever, unspecified Expected: 10/17/2021, Expires: 10/31/2021 [place] Work Phone: Comment on above: Expected: 10/17/2021 , Expires: 10/31/2021 Start: 08-28-2021 COVID-19 VACCINE (4 - Booster for Pfizer series) COVID-19 VACCINE (4 - Booster for Pfizer series) [facility] Start: 08-09-2021 End: 08-09-2022 CBC panel - Blood by Automated count CBC Lab Routine Medication management Hypertension goal BP (blood pressure) < 140/90 Expected: 08/09/2021, Expires: 08/09/2022 [place] Work Phone: Comment on above: Expected: 08/09/2021 , Expires: 08/09/2022 Start: 08-09-2021 End: 08-09-2022 Comprehensive metabolic 2000 panel - Serum or Plasma COMP METABOLIC PANEL Lab Routine Medication management Hypertension goal BP (blood pressure) < 140/90 Expected: 08/09/2021, Expires: 08/09/2022 [place] Work Phone: Comment on above: Expected: 08/09/2021 , Expires: 08/09/2022 Start: 08-09-2021 End: 08-09-2022 LIPID PANEL BASIC LIPID PANEL BASIC Lab Routine Mixed hyperlipidemia Expected: 08/09/2021, Expires: 08/09/2022 [place] Work Phone: Comment on above: Expected: 08/09/2021 , Expires: 08/09/2022 Start: 08-09-2021 End: 08-09-2022 T3 FREE BLD T3 FREE BLD Lab Routine Acquired hypothyroidism Expected: 08/09/2021, Expires: 08/09/2022 [place] Work Phone: Comment on above: Expected: 08/09/2021 , Expires: 08/09/2022 Start: 08-09-2021 End: 08-09-2022 T4 FREE/FREE THYROX T4 FREE/FREE THYROX Lab Routine Acquired hypothyroidism Expected: 08/09/2021, Expires: 08/09/2022 [place] Work Phone: Comment on above: Expected: 08/09/2021 , Expires: 08/09/2022 Start: 08-09-2021 End: 08-09-2022 Thyrotropin [Units/volume] in Serum or Plasma TSH BLD Lab Routine Acquired hypothyroidism Expected: 08/09/2021, Expires: 08/09/2022 [place] Work Phone: Comment on above: Expected: 08/09/2021 , Expires: 08/09/2022 Start: 07-16-2021 ADVANCE DIRECTIVE DISCUSSION ADVANCE DIRECTIVE DISCUSSION [facility] Start: 06-08-2021 Hepatitis B surface antibody level LDL CHOLESTEROL [facility] Start: 09-11-2017 SIGMOIDOSCOPY SIGMOIDOSCOPY [facility] Start: 09-01-2011 FECAL OCCULT BLOOD FECAL OCCULT BLOO D [facility] Start: 02-14-2009 Urine microalbumin profile [facility] Start: 01-13-2002 Medicare Annual Well ness Visit Medicare Annual Wellness Visit [facility] [facility] Start: 1997 Influenza vaccination LUNG CANCER SC REENING [facility] Start: 1997 Screening for malign ant neoplasm of lung Lung Cancer Screening [facility] Start: 01-05-1992 COLOGUARD (FIT-DNA) COLOGUARD (FIT-D NA) [facility] Start: 01-05-[address] COLONOGRAPHY [facility] Start: 1977 Zoledronic acid therapy ALPHA- 1 ANTITRYPSIN DEFICIENCY SCREENING [facility] Start: 1965 BP CONTROLLED (<130/80) BP CONTROLLE D (<130/80) [facility] Start: 01-05-1952 COVID-19 VACCINE (1) COVID-19 VACCIN E (1) [facility] Bacteria identified in Urine by Culture BACTERIAL CULTURE, URINE Microbiology Routine Dysuria 10/01/2024 12:33 PM EDT [facility] End: 11-13-2024 CT Chest WO contrast CT CHEST WO IVCON Radiology Routine Lung nodules Former smoker Centrilobular emphysema (HCC) 1 Occurrences starting 10/15/2023 until 11/13/2024 [place] Work Phone: Comment on above: 1 Occurrences starti ng 10/15/2023 until 11/13/2024 CT Chest WO contrast CT CHEST WO IVCON Radiology Routine Lung nodules Former smoker Centrilobular emphysema (HCC) 10/31/2023 11:15 AM EDT [place] Work Phone: CT Chest WO contrast CT CHEST WO IVCON Radiology Routine Lung nodules Centrilobular emphysema (HCC) 07/30/2024 11:20 AM EST [place] Work Phone: Hemoglobin A1c/Hemoglobin.total in Blood [facility] End: 07-04-2023 HOLTER MONITOR 48 HOUR HOLTER MONITOR 48 HOUR ECG Routine TIA (transient ischemic attack) 1 Occurrences starting 07/04/2022 until 07/04/2023 [place] Work Phone: Comment on above: 1 Occurrences starti ng 07/04/2022 until 07/04/2023 Patient Education ED Diarrhea, U nknown Cause ED Viral Syndrome (Adult) [facility] Work Phone: Patient referral [facility] Work Phone: End: 10-31-2025 PET+CT Guidance for localization of tumor of Whole body-- W [id number] IV NM PET/CT PROSTATE WHOLE BODY IMAGING Radiology Routine Prostate cancer (HCC) 1 Occurrences starting 10/01/2024 until 10/31/2025 [place] Work Phone: Comment on above: 1 Occurrences starti ng 10/01/2024 until 10/31/2025 End: 08-29-2023 Polysomnogram POLYSOMNOGRAM (PSG) Procedures Routine TIA (transient ischemic attack) 1 Occurrences starting 08/29/2022 until 08/29/2023 [place] Work Phone: Comment on above: 1 Occurrences starti ng 08/29/2022 until 08/29/2023 POST VOID RESIDUAL POST VOID RES IDUAL Procedures Routine Elevated prostate specific antigen (PSA) Benign prostatic hyperplasia with urinary retention Ordered: 06/13/2022 [place] Work Phone: Comment on above: Ordered: 06/13/2022 POST VOID RESIDUAL POST VOID RES IDUAL Procedures Routine Elevated prostate specific antigen (PSA) Benign prostatic hyperplasia with urinary retention Ordered: 06/19/2023 [place] Work Phone: Comment on above: Ordered: 06/19/2023 PROSTATE BIOPSY GUKI PROSTATE BI OPSY GUKI Procedures Routine Elevated prostate specific antigen (PSA) Ordered: 01/01/2024 [place] Work Phone: Comment on above: Ordered: 01/01/2024 Prostate needle biop sy any approach NEEDLE BX - PROSTATE Procedures Routine Benign prostatic hyperplasia with urinary retention Ordered: 09/15/2024 [facility] Comment on above: Ordered: 09/15/2024 Tissue Pathology bio psy report SURGICAL PATHOLOGY Lab Routine Benign prostatic hyperplasia with urinary retention 09/15/2024 3:21 PM EST [facility] Troponin T.cardiac [Mass/volume] in Serum or Plasma by High sensitivity method [facility] Troponin T.cardiac [Mass/volume] in Serum or Plasma by High sensitivity method [facility] TRUS ONLY TRUS ONLY Proced ures Routine Benign prostatic hyperplasia with urinary retention Ordered: 09/15/2024 [facility] Comment on above: Ordered: 09/15/2024 Us guidance needle placement img s&i ECHO GUIDE FOR BIOPSY Procedures Routine Benign prostatic hyperplasia with urinary retention Ordered: 09/15/2024 [place] Work Phone: Comment on above: Ordered: 09/15/2024 [facility] Immunizations Immunization Date Immunization Notes Care Provider [facility] 06-18-2024 pneumococcal Conjuga te, unspecified formulation Yuval Dorantes MD Work Phone: [place] Work Phone: 06-18-2024 pneumococcal conjuga te (PCV20) vaccine, 20 valent (PREVNAR 20) Porsha Meadows PA-C Work Phone: [facility] 05-20-2024 influenza, high dose seasonal, preservative-free Porsha Meadows PA-C Work Phone: [facility] 05-28-2023 influenza virus vacc ine, unspecified formulation Yuval Dorantes MD Work Phone: [facility] 06-23-2022 COVID-19 booster vaccine, age 12+ yr, bivalent (PFIZER-BIONTECH) Minoo Judi 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.[facility] Work Phone: [facility] Work Phone: 04-03-2022 influenza, high-dose , quadrivalent vaccine (FLUZONE HIGH DOSE QUADRIVALENT) Porsha Meadows PA-C Work Phone: [facility] 03-16-2022 influenza nasal, unspecified formulation Minoo Judi 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.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 Work Phone: [facility] Work Phone: 12-22-2021 COVID-19 original vaccine, age 12+ yr, monovalent (PFIZER-BIONTECH - PURPLE TOP) Porsha Meadows PA-C Work Phone: [facility] Work Phone: 04-27-2021 COVID-19 original vaccine, age 12+ yr, monovalent (PFIZER-BIONTECH - PURPLE TOP) Minoo Judi 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.[facility] Work Phone: [facility] Work Phone: 03-25-2021 influenza nasal, unspecified formulation Porsha Meadows PA-C Work Phone: [facility] Work Phone: 03-16-2021 influenza, high-dose , quadrivalent vaccine (FLUZONE HIGH DOSE QUADRIVALENT) Irasema Murcia 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.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 Work Phone: [facility] 10-05-2020 COVID-19 original vaccine, age 12+ yr, monovalent (PFIZER-BIONTECH - PURPLE TOP) Minoo Judi 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.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 Work Phone: [facility] Work Phone: 09-14-2020 COVID-19 original vaccine, age 12+ yr, monovalent (PFIZER-BIONTECH - PURPLE TOP) Minoo Judi 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.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 Work Phone: [facility] Work Phone: 05-28-2020 influenza, high dose seasonal, preservative-free Irasema Murcia 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.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 Work Phone: [facility] 04-08-2020 influenza, high-dose , quadrivalent vaccine (FLUZONE HIGH DOSE QUADRIVALENT) Minoo Casanova 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.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 Work Phone: [facility] Work Phone: 05-15-2019 influenza, high dose seasonal, preservative-free Riasema Murcia 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.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 Work Phone: [facility] Work Phone: 11-13-2018 pneumococcal polysaccharide vaccine, 23 valent Irasema Murcia 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.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 Work Phone: [facility] 11-13-2018 zoster vaccine recombinant Irasema Murcia 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.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 Work Phone: [facility] 05-18-2018 influenza, high dose seasonal, preservative-free Irasema Murcia 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.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 Work Phone: [facility] 04-03-2018 zoster vaccine recombinant Irasema Murcia 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.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 Work Phone: [facility] 06-18-2017 influenza, high dose seasonal, preservative-free Irasema Murcia 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.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 Work Phone: [facility] Work Phone: 04-15-2017 influenza nasal, unspecified formulation Porsha Meadows PA-C Work Phone: [facility] Work Phone: 05-24-2016 influenza, high dose seasonal, preservative-free Irasema Murcia 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.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 Work Phone: [facility] 05-16-2016 influenza nasal, unspecified formulation Porsha Meadows PA-C Work Phone: [facility] Work Phone: 06-16-2015 influenza, high dose seasonal, preservative-free Irasema Murcia 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.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 Work Phone: [facility] Work Phone: 05-16-2015 influenza nasal, unspecified formulation Porsha Meadows PA-C Work Phone: [facility] Work Phone: 03-31-2015 pneumococcal conjuga te vaccine, 13 valent Irasema Murcia 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.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 Work Phone: [facility] 03-16-2015 pneumococcal conjuga te vaccine, 13 valent Minoo Casanova 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.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 Work Phone: [facility] Work Phone: 02-04-2015 hepatitis A and hepatitis B vaccine Irasema Murcia 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.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 Work Phone: [facility] 09-09-2014 hepatitis A and hepatitis B vaccine Porsha Meadows PA-C Work Phone: [facility] Work Phone: 08-04-2014 hepatitis A and hepatitis B vaccine Porsha Meadows PA-C Work Phone: [facility] Work Phone: 05-18-2014 influenza, seasonal, injectable Irasema Murcia 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.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 Work Phone: [facility] 05-17-2014 influenza nasal, unspecified formulation Porsha Meadows PA-C Work Phone: [facility] Work Phone: 11-05-2013 pneumococcal polysaccharide vaccine, 23 valent Irasema Murcia 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.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 Work Phone: [facility] 05-21-2013 influenza virus vacc ine, unspecified formulation Irasema Murcia 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.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 Work Phone: [facility] 04-15-2013 influenza nasal, unspecified formulation Porsha Meadows PA-C Work Phone: [facility] Work Phone: 05-16-2012 influenza nasal, unspecified formulation Porsha Meadows PA-C Work Phone: [facility] Work Phone: 05-19-2011 influenza virus vacc ine, unspecified formulation Irasema Murcia 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.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 Work Phone: [facility] Work Phone: 04-15-2011 influenza nasal, unspecified formulation Porsha Meadows PA-C Work Phone: [facility] Work Phone: 05-16-2010 influenza nasal, unspecified formulation Porsha Meadows PA-C Work Phone: [facility] Work Phone: 05-13-2010 influenza virus vacc ine, unspecified formulation Irasema Murcia 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.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 Work Phone: [facility] 02-13-2009 tetanus and diphther ia toxoids, adsorbed, preservative free, for adult use (2 Lf of tetanus toxoid and 2 Lf of diphtheria toxoid) Irasema Murcia 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.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 Work Phone: [facility] Work Phone: 05-29-2008 influenza virus vacc ine, unspecified formulation Irasema Murcia 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.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 Work Phone: [facility] Work Phone: 05-16-2007 pneumococcal polysaccharide vaccine, 23 valent Porsha Meadows PA-C Work Phone: [facility] Work Phone: 05-16-2007 pneumococcal vaccine , unspecified formulation Minoo Casanova 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.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 Work Phone: [facility] Work Phone: Payers Date Payer Category Payer Self-pay [id number] [phone] [id number] 2017 Private Health Insurance [facility] AARP SUPPLEMENT [id number] 2017-Present [phone] [address] [place] [address] Indemnity [id number] 2017 Private Health Insurance [id number] 2017 Unknown [id number] 2002 Medicare MEDICARE MEDICAR E A AND B [id number] 2002-Present [phone] [place] [address] Medicare [id number] 2002 Medicare [id number] 2001 Medicare [id number] Unknown [facility] ED SEE NOTE [id number] Unknown [id number] Unknown [id number] Unknown [id number] Unknown [id number] Unknown [id number] Unknown [id number] Social History Date Type Detail Facility Start: 08-30-2010 End: 03-04-2024 Tobacco smoking status NHIS Ex-smoker [facility] Start: 08-22-1987 End: 08-22-2010 History of tobacco use Current smoker [facility] Start: 08-22-1987 End: 08-22-2010 History of tobacco use Cigarette Smoker [facility] Start: 08-30-2010 End: 02-02-2023 Cigarettes smoked current (pack per day) - Reported 1 [facility] Start: 08-30-2010 End: 08-20-2024 Tobacco use and exposure Smokeless tobacco non-user [facility] Start: 02-22-2021 End: 10-17-2021 Alcohol intake Current non-drinker of alcohol (finding) [facility] Start: 1945 Sex Assigned At Not on file [facility] Start: 07-04-2021 End: 12-26-2022 Tobacco smoking status NHIS Unknown if ever smoked [facility] Start: 10-14-2015 None [facility] Start: 10-14-2015 Alone [facility] Start: 10-14-2015 Cigarettes [facility] Start: 1945 Sex Assigned At Male W [facility] Start: 01-23-2021 End: 06-13-2022 Exposure to SARS-CoV-2 (event) Not sure [facility] Start: 09-25-2022 Tobacco Comment Started at age 42 [facility] Start: 06-19-2023 End: 10-01-2024 Alcohol intake Ex-drinker (finding) [facility] Start: 02-02-2023 End: 06-19-2023 Tobacco use panel [facility] Adult Depression Screening Assessment 0 [facility] Start: 10-01-2024 Sex Male (finding) [facility] Goals Date Patient Goal Desired Activity /State Functional Status Date Assessment Result Facility 06-24-2022 Functional status [place] [employer] [facility] Work Phone: 11-18-2014 Are you deaf, or do you have serious difficulty hearing No 11/18/2014 2:50 PM Martine Riojas LPN No [facility] 11-18-2014 Are you blind, or do you have serious difficulty seeing, even when wearing glasses No 11/18/2014 2:50 PM Martine Riojas LPN No [facility] 11-18-2014 Do you have serious difficulty walking or climbing stairs No 11/18/2014 2:50 PM Martine Riojas LPN No [facility] 11-18-2014 Do you have difficul ty dressing or bathing No 11/18/2014 2:50 PM Martine Riojas LPN No [facility] 11-18-2014 Because of a physica l, mental, or emotional condition, do you have difficulty doing errands alone such as visiting a physician's office or shopping No 11/18/2014 2:50 PM EDT Martine Gaona LPN No [facility] Mental Status Date Assessment Result Facility 01-05-2025 Cognitive function Voice/Name [facility] Work Phone: 06-24-2022 Cognitive function Voice/Name [facility] Work Phone: 06-23-2022 Cognitive function Voice/Name [facility] Work Phone: 11-18-2014 Because of a physica l, mental, or emotional condition, do you have serious difficulty concentrating, remembering, or making decisions No 11/18/2014 2:50 PM EDT Martine Gaona LPN No [facility] Clinical Notes 09-14-2015 to 01-05-2025 Andrea Wu MD - 01/05/2025 1:13 PM Andrea Briseno MD - 12/04/2024 12:00 AM Suly Taylor RN - 11/25/2024 2:15 PM Andrea Briseno MD - 11/25/2024 2:00 PM EDTPatient Instructions Note Date & Type Note Facility 01-05-2025 History and physi adamaris note [facility] 01-05-2025 Radiology Diagnostic study note [facility] [address] [place], [place] [id number] STROKE CTA Head AND Neck W/Con MR#: [id number] Acct: [id number] Name: SHASHANK ESPINOZA Rep #: [id number] : 1945 M [id number] From: Rosamaria Ervin MD PCP: Dr. Yuval Dorantes MD Status: RE G ER Study:STROKE CTA Head AND Neck W/Con Date of Exam: 01/05/25 Exam# [id number] Ordering Dr: Jose Baldwin MD PROCEDURE: STROKE CTA HEAD AND NECK W/CON 01/05/2025 REASON FOR EXAM: NEURO DEFICIT, ACUTE, STROKE SUSPECTED TECHNIQUE: STROKE CTA HEAD AND NECK W/CON Multiplanar Sagittal and Coronal images were obtained. 3D post processing was performed CONTRAST: 100 mL Isovue 370 One or more dose reduction techniques were used (e.g., Automated exposure control, adjustment of the mA and/or kV according to patient size, use of iterative reconstruction technique). RADIATION DOSE SUMMARY: CTDlvol: 20.8 mGy DLP: 780 mGycm COMPARISON: CTA head and neck 06/23/2022 FINDINGS: Aortic Arch: Moderate atherosclerotic plaque. Brachiocephalic and Subclavians: Mild atherosclerotic plaque without significantstenosis. RIGHT Carotid: Right CCA: Mild calcified and soft plaque. Right ICA: Complete occlusion throughout, unchanged from 06/23/2022. Maximum stenosis (NASCET): 100% Right ECA: Unremarkable LEFT Carotid: Left CCA: Mild calcified and soft plaque. Left ICA: Moderate calcified and soft plaque. Maximum stenosis (NASCET): <50 % Left ECA: Unremarkable. Vertebrals: Codominant. Arise from the subclavians. Both vertebrals form the basilar. RIGHT Vertebral: There is aneurysmal dilation with peripheral calcification at the V4 segment of the right vertebral artery measuring up to 5 mm (series 2, image 353), unchanged. LEFT Vertebral: Calcification at the V4 segment results in at least 70% luminal narrowing subjectively, also unchanged. Anatomy: The right MCA is supplied by the left internal carotid artery. Anterior cerebral arteries: Unremarkable: Middle cerebral arteries: Unremarkable. Basilar artery: Unremarkable. Posterior cerebral arteries: Unremarkable. Other major branches of the posterior circulation: Unremarkable. Major venous structures: Unremarkable. Other findings: Neck: No lymphadenopathy. Lungs: Centrilobular emphysema. Bones: Degenerative changes. CT/STROKE CTA Head AND Neck W/Con IMPRESSION: 1. No new large vessel occlusion or hemodynamically significant narrowing. 2. 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 Reading Location: [id number] CC: Dr. Jose Baldwin MD; Dr. Yuval Dorantes MD ~ Rib Matcher And Fitter: Signed [facility] 01-05-2025 Radiology Diagnostic study note [facility] [address] [place] [address] STROKE Brain/Head without Cont MR#: [id number] Acct: [id number] Name: SHASHANK ESPINOZA Rep #: [id number] : 1945 M [id number] From: Rosamaria Ervin MD PCP: Dr. Yuval Dorantes MD Status: RE G ER Study:STROKE Brain/Head without Cont Date of Exam: 01/05/25 Exam# [id number] Ordering Dr: Jose Baldwin MD PROCEDURE: STROKE BRAIN/HEAD WITHOUT CONT 01/05/2025 REASON FOR EXAM: NEURO DEFICIT, ACUTE, STROKE SUSPECTED TECHNIQUE: STROKE BRAIN/HEAD WITHOUT CONT Coronal and Sagittal reconstruction series were provided. One or more dose reduction techniques were used (e.g., Automated exposure control, adjustment of the mA and/or kV according to patient size, use of iterative reconstruction technique. RADIATION DOSE SUMMARY: CTDlvol: 45.0 mGy DLP: 847 mGycm COMPARISON: MRI brain and CT head on 06/23/2022 FINDINGS: Brain: No acute intracranial hemorrhage, mass effect, or midline shift. Low density in the periventricular white matter suggests mild chronic small vessel ischemic changes. CSF Spaces: Mild generalized cerebral atrophy Sinuses/Mastoids: Clear at visualized levels Bones: Unremarkable. CT/STROKE Brain/Head without Cont IMPRESSION: No evidence of an acute intracranial abnormality. Consider MRI if there is persistent concern for acute ischemia. The critical information above was relayed directly by me by telephone to Jose Baldwin on 01/05/2025 at 4:34 pm with readback verification. Reading Location: [facility] CC: Dr. Jose Baldwin MD; Dr. Yuval Dorantes MD ~ Rib Matcher And Fitter: Signed [facility] 01-05-2025 History of Present illness Narrative AMBULATORY TELEPHONE VISIT Shashank Espinoza has consented to this telephone encounter. Persons Present: patient Chief Complaint/Reason: Four week follow-up after radiation treatment. HPI: Clinical stage IIC, cT1c, cN0, prostate adenocarcinoma with Ujan A score 7 (4+3), grade group 3, PSA 11.54. s/p radiation treatment finished on 12/04/24. He is doing well without any specific new complaints. He continues to have mild diarrhea and increased frequency of urination, but they improved much after he finished radiation treatment. He is on Flomax. Data Reviewed: None. Assessment: He is recovering well from acute radiation treatment effects. Plan: He is scheduled to see Dr. Henley in March. Total Time Spent: 10 minutes nAdrea Wu MD documented in this encounter [facility] 12-04-2024 Note HNO ID: [id number] Author: KARY MCCLELLAN RN Service: ? Author Type: Registered Nurse Type: Progress Notes Filed: 12/04/2024 14:10 Note Text: AMBULATORY PATIENT EDUCATION NOTE TOPIC: SURVIVAL SKILLS: Symptom Management READINESS TO LEARN COGNITIVE ABILITY: Alert and oriented MOTIVATION TO LEARN: Eager Interested FAMILY SUPPORT: Unable to assess - Family not present INSTRUCTION PROVIDED TO: Patient PATIENT LEARNS BEST BY: Multiple Methods FACTORS AFFECTING LEARNING: None PHYSICAL LIMITATIONS AFFECTING LEARNING: None LEARNING RESPONSE DIAGNOSIS: C61 METHOD OF INSTRUCTION: Teach Back skin care Individual instruction Written instruction/Handouts Verbal instruction PATIENT / FAMILY RESPONSE: Verbalizes understanding of: SYMPTOM MANAGEMENT-Correct actions to take to manage symptoms associated with his/her disease/illness FOLLOW-UP PLAN: Patient instructed to call with any further issues Reinforce - Repeat previous content Contact information given. SUPPLEMENTAL MATERIAL: D/C sheet REFERRAL (RECOMMENDATION): None Written discharge instructions given and reviewed with patient. Patient verbalizes understanding. Encouraged to call with any questions or concerns. Instruction for 4 week phone follow up appointment given by Dr. Wu. Electronically Signed By: Kary Mcclellan RN In Department: RADIATION ONCOLOGY Time spent on patient education: 05 minutes. [facility] 12-04-2024 History of Present illness Narrative SHASHANK ESPINOZA [id number] : 1945 12/04/2024 [facility] Department of Radiation Oncology RADIATION ONCOLOGY - COMPLETION NOTE DATE OF SIMULATION: 10/20/24 DATES OF TREATMENT: 10/28/24 - 12/04/24 UNIT: W_[facility] AREA TREATED: Pelvis/prostate/SV DISEASE: Clinical stage IIC, cT1c, cN0, prostate adenocarcinoma with Wesley score 7 (4+3), grade group 3, PSA 11.54. DELIVERED DOSE: 7000 cGy in 28 fractions treating to the 97.6% isodose line with 10 MV and 3 vmat briseno. ELAPSED TIME: 37 days. TOLERANCE/ RESPONSE: He has increased urinary frequency and was started on Flomax. He has mild diarrhea and takes low dose Imodium as needed. REMARKS: He tolerated radiation treatment well. Four week follow-up with me. Staff Physician ANDREA WU M.D. / 52:16 PM Electronically Signed cc: Yuval Dorantes [address] [place] [address] An Henley Jr documented in this encounter [facility] 12-04-2024 Note Education (TIGRE) SHASHANK ESPINOZA ([id number]) 1945 M Date Time Provider Department 12/04/24 ANDREA WU [facility] Reason for Visit: Patient Education [91] Cmt: Discharge instructions-completed radiation During your visit today, we recorded the following information about you: Allergies As of Date: 12/04/2024 Noted Allergy Reaction PRILOSEC (OMEPRAZOLE MAGNESIUM) 09/27/2010 14 - Other: See Comments Comments: GI upset Date Reviewed: 12/02/2024 Reviewed by: Suly Cerrato RN - Fully Assessed Prescriptions as of 12/04/2024 - tamsulosin (FLOMAX) 0.4 mg Take 1 capsule by mouth once daily. - clonazePAM (KLONOPIN) 1 mg tablet Take 1 tablet by mouth daily at bedtime. May also take 1 tablet once daily as needed. Do all this for 90 days. Patient should start on November 06, 2024. - levothyroxine (SYNTHROID) 50 mcg tablet Take 1 tablet by mouth once daily. Except take 2 on Sunday ([facility]) - tiotropium-olodaterol (STIOLTO RESPIMAT) 2.5-2.5 mcg/actuation inhaler Inhale 2 Puffs as instructed once daily. - albuterol HFA (PROVENTIL HFA, VENTOLIN HFA) 90 mcg/actuation inhaler Inhale 2 Puffs as instructed every 4 hours as needed. - ipratropium bromide (ATROVENT) 42 mcg (0.06 %) nasal spray Use 2 Sprays in the nose four times daily as needed. - fluticasone (FLONASE) 50 mcg/actuation nasal spray Use 2 Sprays in each nostril once daily as needed. Rinse mouth after use. - traZODone (DESYREL) 100 mg tablet Take 1-2 tablets by mouth daily at bedtime. (Get through [facility] now) - psyllium husk (KONSYL SUGAR-FREE) 6 gram/6 gram powd Take 1 Scoop by mouth once daily as needed. - nitroglycerin sublingual (NITROQUICK) 0.4 mg SL tablet Dissolve 1 tablet under the tongue as needed. FOR CHEST PAIN. IF NO RELIEF CALL 911 - docusate sodium (COLACE) 100 mg capsule Take 1 capsule by mouth twice daily as needed for Constipation. - atorvastatin (LIPITOR) 40 mg tablet Take 1 tablet by mouth once daily. For cholesterol. (From [facility]) - famotidine (PEPCID) 40 mg tablet Take 1 tablet by mouth twice daily. - amLODIPine (NORVASC) 10 mg tablet Take 1 tablet by mouth once daily. ([facility] senior mechanical engineer increased dose--Dr. Cruz) - losartan (COZAAR) 100 mg tablet Take 1 tablet by mouth once daily. - Aspirin 81 mg ORAL Tab Take 81 mg by mouth once daily. Encounter Status:Closed by KARY MCCLELLAN on 12/04/24 [facility] 12-04-2024 Note HNO ID: [id number] Author: ANDREA WU MD Service: Radiation Oncology Author Type: Physician Type: Progress Notes Filed: 12/10/2024 14:16 Note Text: SHASHANK ESPINOZA [id number] : 1945 12/04/2024 [facility] Department of Radiation Oncology RADIATION ONCOLOGY - COMPLETION NOTE DATE OF SIMULATION: 10/20/24 DATES OF TREATMENT: 10/28/24 - 12/04/24 UNIT: [id number] AREA TREATED: Pelvis/prostate/SV DISEASE: Clinical stage IIC, cT1c, cN0, prostate adenocarcinoma with Juan A score 7 (4+3), grade group 3, PSA 11.54. DELIVERED DOSE: 7000 cGy in 28 fractions treating to the 97.6% isodose line with 10 MV and 3 vmat briseno. ELAPSED TIME: 37 days. TOLERANCE/ RESPONSE: He has increased urinary frequency and was started on Flomax. He has mild diarrhea and takes low dose Imodium as needed. REMARKS: He tolerated radiation treatment well. Four week follow-up with az. Staff Physician ANDREA WU M.D. / 52:16 PM Electronically Signed cc: Yuval Dorantes [address] [place] [id number] [facility] 12-02-2024 Note HNO ID: [id number] Author: ANDREA WU MD Service: ? Author Type: Physician Type: Progress Notes Filed: 12/02/2024 14:21 Note Text: Radiation Oncology - On Treatment Review (OTR) Note PATIENT NAME: Shashank Espinoza PATIENT DIAGNOSIS: Clinical stage IIC, cT1c, cN0, prostate adenocarcinoma with Juan A score 7 (4+3), grade group 3, PSA 11.54. COURSE: definitive AREA TREATED: Pelvis/prostate/SV CURRENT DOSE: 6500 cGy in 26 fx PLANNED DOSE: 7000 cGy in 28 fx SUBJECTIVE: He is doing well without any specific new complaints. He continues to have increased urinary frequency but without significant changes from last week. EXAM: KPS: 90 General Appearance: Alert and oriented. No acute distress. IMAGING/LAB RESULTS: None. Treatment chart checked: Yes Patient treatment site reviewed and verified:Yes CBCTs reviewed and current:Yes Medications started: Flomax. Imodium as needed. ASSESSMENT/PLAN: Clinically stable. Toxicity within expected parameters. Continue radiation treatment as planned. Andrea Wu MD [facility] 12-02-2024 Note HNO ID: [id number] Author: SULY CERRATO RN Service: ? Author Type: Registered Nurse Type: Progress Notes Filed: 12/02/2024 14:21 Note Text: Radiation Therapy - Nursing Note (OTV) PATIENT NAME: Shashank Espinoza PATIENT December 02, 2024 [facility] FACILITY/LOCATION: [facility] NOTE TYPE: PROSTATE - MALE PELVIS Subjective Data I've been peeing about every 30-40 minutes but just now there was a lot in there but she said I wasn't real full Was up bunches last night Additional Data Do you want to see a School Librarian? No Status: Patient is male Stress Scale: On a scale of 0 to 10, what number best describes how much distress you have experienced in the past week?(0 being no distress and 10 being extreme distress) 5 Social work notified: Pt denied need to see web content & social media manager at this time. Nursing Assessment Fatigue: increased fatigue over baseline but not altering normal activities Appetite: fair Nutritional Intake: Regular oral intake. Weight Gain/Loss: Not applicable Ambulatory weight history: Last 6 Encounter Wt Readings: Date: Wt: 10/22/2024 78.2 kg (172 lb 6.4 oz) 08/11/2024 75.8 kg (167 lb) 07/30/2024 75 kg (165 lb 5.5 oz) 06/24/2024 74.8 kg (164 lb 12.8 oz) 06/18/2024 74 kg (163 lb 2.3 oz) 04/16/2024 73.9 kg (163 lb) Nausea:None Vomiting: None Bowel Function: normal bowel movements Erythema/Hyperpigmentation:none Desquamation:none Rash:none Skin Care: Aquaphor Skin Sensation: Within Normal Limits Focused Assessment PROSTATE - MALE PELVIS: Rectal bleeding: No. Rectal pain: No. Bladder function: frequency, nocturia. Urinary frequency (D/N): every 30-40 min/many. SIGNED by: Suly Cerrato RN [facility] 11-25-2024 Note HNO ID: [id number] Author: SULY CERRATO RN Service: ? Author Type: Registered Nurse Type: Progress Notes Filed: 11/25/2024 14:44 Note Text: Radiation Therapy - Nursing Note (OTV) PATIENT NAME: Shashank Espinoza PATIENT November 25, 2024 [facility] FACILITY/LOCATION: [facility] NOTE TYPE: PROSTATE - MALE PELVIS Subjective Data Had very urgent loose stool just now after treatment, states it is not liquid but just could not hold it Additional Data Do you want to see a School Librarian? No Status: Patient is male Stress Scale: On a scale of 0 to 10, what number best describes how much distress you have experienced in the past week?(0 being no distress and 10 being extreme distress) 3 Social work notified: Pt denied need to see web content & social media manager at this time. Nursing Assessment Fatigue: increased fatigue over baseline but not altering normal activities Appetite: good Nutritional Intake: Regular oral intake. Weight Gain/Loss: Not applicable Ambulatory weight history: Last 6 Encounter Wt Readings: Date: Wt: 10/22/2024 78.2 kg (172 lb 6.4 oz) 08/11/2024 75.8 kg (167 lb) 07/30/2024 75 kg (165 lb 5.5 oz) 06/24/2024 74.8 kg (164 lb 12.8 oz) 06/18/2024 74 kg (163 lb 2.3 oz) 04/16/2024 73.9 kg (163 lb) Nausea:None Vomiting: None Bowel Function: very loose stools Erythema/Hyperpigmentation:none Desquamation:none Rash:none Skin Care: Aquaphor Skin Sensation: Within Normal Limits Focused Assessment PROSTATE - MALE PELVIS: Rectal bleeding: No. Rectal pain: No. Bladder function: no problems. Urinary frequency (D/N): stable/stable. SIGNED by: Suly Cerrato RN [facility] 11-25-2024 History of Present illness Narrative Radiation Therapy - Nursing Note (OTV) PATIENT NAME: Shashank Espinoza PATIENT November 25, 2024 [facility] FACILITY/LOCATION: [facility] NOTE TYPE: PROSTATE - MALE PELVIS Subjective Data Had very urgent loose stool just now after treatment, states it is not liquid but just could not hold it Additional Data Do you want to see a School Librarian? No Status: Patient is male Stress Scale: On a scale of 0 to 10, what number best describes how much distress you have experienced in the past week?(0 being no distress and 10 being extreme distress) 3 Social work notified: Pt denied need to see web content & social media manager at this time. Nursing Assessment Fatigue: increased fatigue over baseline but not altering normal activities Appetite: good Nutritional Intake: Regular oral intake. Weight Gain/Loss: Not applicable Ambulatory weight history: Last 6 Encounter Wt Readings: Date: Wt: 10/22/2024 78.2 kg (172 lb 6.4 oz) 08/11/2024 75.8 kg (167 lb) 07/30/2024 75 kg (165 lb 5.5 oz) 06/24/2024 74.8 kg (164 lb 12.8 oz) 06/18/2024 74 kg (163 lb 2.3 oz) 04/16/2024 73.9 kg (163 lb) Nausea:None Vomiting: None Bowel Function: very loose stools Erythema/Hyperpigmentation:none Desquamation:none Rash:none Skin Care: Aquaphor Skin Sensation: Within Normal Limits Focused Assessment PROSTATE - MALE PELVIS: Rectal bleeding: No. Rectal pain: No. Bladder function: no problems. Urinary frequency (D/N): stable/stable. SIGNED by: Suly Cerrato RN Radiation Oncology - On Treatment Review (OTR) Note PATIENT NAME: Shashank Espinoza PATIENT DIAGNOSIS: Clinical stage IIC, cT1c, cN0, prostate adenocarcinoma with Juan A score 7 (4+3), grade group 3, PSA 11.54. COURSE: definitive AREA TREATED: Pelvis/prostate/SV CURRENT DOSE: 5250 cGy in 21 fx PLANNED DOSE: 7000 cGy in 28 fx SUBJECTIVE: He has occasional loose stool. EXAM: KPS: 90 General Appearance: Alert and oriented. No acute distress. IMAGING/LAB RESULTS: None. Treatment chart checked: Yes Patient treatment site reviewed and verified:Yes CBCTs reviewed and current:Yes Medications started: Flomax. Imodium as needed. ASSESSMENT/PLAN: Clinically stable. Toxicity within expected parameters. Continue radiation treatment as planned. Andrea Wu MD documented in this encounter [facility] 11-25-2024 Note HNO ID: [id number] Author: ANDREA WU MD Service: ? Author Type: Physician Type: Progress Notes Filed: 11/25/2024 14:44 Note Text: Radiation Oncology - On Treatment Review (OTR) Note PATIENT NAME: Shashank Espinoza PATIENT DIAGNOSIS: Clinical stage IIC, cT1c, cN0, prostate adenocarcinoma with Juan A score 7 (4+3), grade group 3, PSA 11.54. COURSE: definitive AREA TREATED: Pelvis/prostate/SV CURRENT DOSE: 5250 cGy in 21 fx PLANNED DOSE: 7000 cGy in 28 fx SUBJECTIVE: He has occasional loose stool. EXAM: KPS: 90 General Appearance: Alert and oriented. No acute distress. IMAGING/LAB RESULTS: None. Treatment chart checked: Yes Patient treatment site reviewed and verified:Yes CBCTs reviewed and current:Yes Medications started: Flomax. Imodium as needed. ASSESSMENT/PLAN: Clinically stable. Toxicity within expected parameters. Continue radiation treatment as planned. Andrea Wu MD [facility] 11-20-2024 Telephone encounter Note I notified pt that his urinalysis was negative for UTI. Pt reports increased urinary frequency and some urgency with bowel movements. I reviewed with patient foods to avoid that can irritate his bowels and her verbalized understanding. He denies diarrhea but is aware that if he has it he can use imodium over the counter per the box instructions. Dr Wu aware and recommends that pt start over the counter AZO. Pt notified and wrote it down to go purchase at the pharmacy. [facility] 11-20-2024 Miscellaneous Notes I notified pt that his urinalysis was negative for UTI. Pt reports increased urinary frequency and some urgency with bowel movements. I reviewed with patient foods to avoid that can irritate his bowels and her verbalized understanding. He denies diarrhea but is aware that if he has it he can use imodium over the counter per the box instructions. Dr Wu aware and recommends that pt start over the counter AZO. Pt notified and wrote it down to go purchase at the pharmacy. documented in this encounter [facility] 11-18-2024 Note HNO ID: [id number] Author: ANDREA WU MD Service: ? Author Type: Physician Type: Progress Notes Filed: 11/18/2024 14:25 Note Text: Radiation Oncology - On Treatment Review (OTR) Note PATIENT NAME: Shashank Espinoza PATIENT DIAGNOSIS: Clinical stage IIC, cT1c, cN0, prostate adenocarcinoma with Juan A score 7 (4+3), grade group 3, PSA 11.54. COURSE: definitive AREA TREATED: Pelvis/prostate/SV CURRENT DOSE: 4000 cGy in 16 fx PLANNED DOSE: 7000 cGy in 28 fx SUBJECTIVE: He has increased urinary frequency and nocturia. EXAM: KPS: 90 General Appearance: Alert and oriented. No acute distress. IMAGING/LAB RESULTS: UA and culture if indicated. Treatment chart checked: Yes Patient treatment site reviewed and verified:Yes CBCTs reviewed and current:Yes Medications started: Flomax. ASSESSMENT/PLAN: Clinically stable. Toxicity within expected parameters. Continue radiation treatment as planned. Andrea Wu MD [facility] 11-18-2024 History of Present illness Narrative Radiation Oncology - On Treatment Review (OTR) Note PATIENT NAME: Shashank Espinoza PATIENT DIAGNOSIS: Clinical stage IIC, cT1c, cN0, prostate adenocarcinoma with Juan A score 7 (4+3), grade group 3, PSA 11.54. COURSE: definitive AREA TREATED: Pelvis/prostate/SV CURRENT DOSE: 4000 cGy in 16 fx PLANNED DOSE: 7000 cGy in 28 fx SUBJECTIVE: He has increased urinary frequency and nocturia. EXAM: KPS: 90 General Appearance: Alert and oriented. No acute distress. IMAGING/LAB RESULTS: UA and culture if indicated. Treatment chart checked: Yes Patient treatment site reviewed and verified:Yes CBCTs reviewed and current:Yes Medications started: Flomax. ASSESSMENT/PLAN: Clinically stable. Toxicity within expected parameters. Continue radiation treatment as planned. Andrea Wu MD Radiation Therapy - Nursing Note (OTV) PATIENT NAME: Shashank Espinoza PATIENT November 18, 2024 [facility] FACILITY/LOCATION: [facility] NOTE TYPE: PROSTATE - MALE PELVIS Subjective Data These pills aren't helping I was up 7 times last night Referring to flowmax he started sunday Additional Data Do you want to see a School Librarian? No Status: Patient is male Stress Scale: On a scale of 0 to 10, what number best describes how much distress you have experienced in the past week?(0 being no distress and 10 being extreme distress) 5 Social work notified: Pt denied need to see web content & social media manager at this time. Nursing Assessment Fatigue: none Appetite: good Nutritional Intake: Regular oral intake. Weight Gain/Loss: Not applicable Ambulatory weight history: Last 6 Encounter Wt Readings: Date: Wt: 10/22/2024 78.2 kg (172 lb 6.4 oz) 08/11/2024 75.8 kg (167 lb) 07/30/2024 75 kg (165 lb 5.5 oz) 06/24/2024 74.8 kg (164 lb 12.8 oz) 06/18/2024 74 kg (163 lb 2.3 oz) 04/16/2024 73.9 kg (163 lb) Nausea:None Vomiting: None Bowel Function: normal bowel movements Erythema/Hyperpigmentation:none Desquamation:none Rash:none Skin Care: Aquaphor Skin Sensation: Within Normal Limits Focused Assessment PROSTATE - MALE PELVIS: Rectal bleeding: No. Rectal pain: No. Bladder function: frequency. Urinary frequency (D/N): every 30 mins, sometimes longer /up last 7 times . SIGNED by: Suly Cerrato RN documented in this encounter [facility] 11-18-2024 Note HNO ID: [id number] Author: SULY CERRATO RN Service: ? Author Type: Registered Nurse Type: Progress Notes Filed: 11/18/2024 14:25 Note Text: Radiation Therapy - Nursing Note (OTV) PATIENT NAME: Shashank Espinoza PATIENT November 18, 2024 [facility] FACILITY/LOCATION: [facility] NOTE TYPE: PROSTATE - MALE PELVIS Subjective Data These pills aren't helping I was up 7 times last night Referring to flowmax he started sunday Additional Data Do you want to see a School Librarian? No Status: Patient is male Stress Scale: On a scale of 0 to 10, what number best describes how much distress you have experienced in the past week?(0 being no distress and 10 being extreme distress) 5 Social work notified: Pt denied need to see web content & social media manager at this time. Nursing Assessment Fatigue: none Appetite: good Nutritional Intake: Regular oral intake. Weight Gain/Loss: Not applicable Ambulatory weight history: Last 6 Encounter Wt Readings: Date: Wt: 10/22/2024 78.2 kg (172 lb 6.4 oz) 08/11/2024 75.8 kg (167 lb) 07/30/2024 75 kg (165 lb 5.5 oz) 06/24/2024 74.8 kg (164 lb 12.8 oz) 06/18/2024 74 kg (163 lb 2.3 oz) 04/16/2024 73.9 kg (163 lb) Nausea:None Vomiting: None Bowel Function: normal bowel movements Erythema/Hyperpigmentation:none Desquamation:none Rash:none Skin Care: Aquaphor Skin Sensation: Within Normal Limits Focused Assessment PROSTATE - MALE PELVIS: Rectal bleeding: No. Rectal pain: No. Bladder function: frequency. Urinary frequency (D/N): every 30 mins, sometimes longer /up last 7 times . SIGNED by: Suly Cerrato RN [facility] 11-11-2024 Note HNO ID: [id number] Author: ANDREA WU MD Service: ? Author Type: Physician Type: Progress Notes Filed: 11/11/2024 14:17 Note Text: Radiation Oncology - On Treatment Review (OTR) Note PATIENT NAME: Shashank Espinoza PATIENT DIAGNOSIS: Clinical stage IIC, cT1c, cN0, prostate adenocarcinoma with Wesley score 7 (4+3), grade group 3, PSA 11.54. COURSE: definitive AREA TREATED: Pelvis/prostate/SV CURRENT DOSE: 2750 cGy in 11 fx PLANNED DOSE: 7000 cGy in 28 fx SUBJECTIVE: He is doing well without any specific new complaints. No significant changes in his urinary symptoms from his baseline. EXAM: KPS: 90 General Appearance: Alert and oriented. No acute distress. IMAGING/LAB RESULTS: None Treatment chart checked: Yes Patient treatment site reviewed and verified:Yes CBCTs reviewed and current:Yes Medications started: Flomax if urinary symptoms worsen. ASSESSMENT/PLAN: Clinically stable. Toxicity within expected parameters. Continue radiation treatment as planned. Andrea Wu MD [facility] 11-11-2024 History of Present illness Narrative Radiation Oncology - On Treatment Review (OTR) Note PATIENT NAME: Shashank Espinoza PATIENT DIAGNOSIS: Clinical stage IIC, cT1c, cN0, prostate adenocarcinoma with Juan A score 7 (4+3), grade group 3, PSA 11.54. COURSE: definitive AREA TREATED: Pelvis/prostate/SV CURRENT DOSE: 2750 cGy in 11 fx PLANNED DOSE: 7000 cGy in 28 fx SUBJECTIVE: He is doing well without any specific new complaints. No significant changes in his urinary symptoms from his baseline. EXAM: KPS: 90 General Appearance: Alert and oriented. No acute distress. IMAGING/LAB RESULTS: None Treatment chart checked: Yes Patient treatment site reviewed and verified:Yes CBCTs reviewed and current:Yes Medications started: Flomax if urinary symptoms worsen. ASSESSMENT/PLAN: Clinically stable. Toxicity within expected parameters. Continue radiation treatment as planned. Andrea Wu MD Radiation Therapy - Nursing Note (OTV) PATIENT NAME: Shashank Espinoza PATIENT November 11, 2024 [facility] FACILITY/LOCATION: [place] [facility] NOTE TYPE: PROSTATE - MALE PELVIS Subjective Data I dont have pain with urination but do have to go frequently Additional Data Do you want to see a School Librarian? No Status: Patient is male Stress Scale: On a scale of 0 to 10, what number best describes how much distress you have experienced in the past week?(0 being no distress and 10 being extreme distress) 5 Social work notified: Pt denied need to see web content & social media manager at this time. Nursing Assessment Fatigue: increased fatigue over baseline but not altering normal activities Appetite: good in morning, eats at [employer] q day, less thru out day Nutritional Intake: Regular oral intake. Weight Gain/Loss: Not applicable Ambulatory weight history: Last 6 Encounter Wt Readings: Date: Wt: 10/22/2024 78.2 kg (172 lb 6.4 oz) 08/11/2024 75.8 kg (167 lb) 07/30/2024 75 kg (165 lb 5.5 oz) 06/24/2024 74.8 kg (164 lb 12.8 oz) 06/18/2024 74 kg (163 lb 2.3 oz) 04/16/2024 73.9 kg (163 lb) Nausea:None Vomiting: None Bowel Function: normal bowel movements Erythema/Hyperpigmentation:none Desquamation:none Rash:none Skin Care: Aquaphor Skin Sensation: Within Normal Limits Focused Assessment RECTAL: Dysuria: none, Rectal pain none, and Rectal bleeding none SIGNED by: Suly Cerrato RN documented in this encounter [facility] 11-11-2024 Note HNO ID: [id number] Author: SULY CERRATO RN Service: ? Author Type: Registered Nurse Type: Progress Notes Filed: 11/11/2024 14:17 Note Text: Radiation Therapy - Nursing Note (OTV) PATIENT NAME: Shashank Espinoza PATIENT November 11, 2024 [facility] FACILITY/LOCATION: [facility] NOTE TYPE: PROSTATE - MALE PELVIS Subjective Data I dont have pain with urination but do have to go frequently Additional Data Do you want to see a School Librarian? No Status: Patient is male Stress Scale: On a scale of 0 to 10, what number best describes how much distress you have experienced in the past week?(0 being no distress and 10 being extreme distress) 5 Social work notified: Pt denied need to see web content & social media manager at this time. Nursing Assessment Fatigue: increased fatigue over baseline but not altering normal activities Appetite: good in morning, eats at [employer] q day, less thru out day Nutritional Intake: Regular oral intake. Weight Gain/Loss: Not applicable Ambulatory weight history: Last 6 Encounter Wt Readings: Date: Wt: 10/22/2024 78.2 kg (172 lb 6.4 oz) 08/11/2024 75.8 kg (167 lb) 07/30/2024 75 kg (165 lb 5.5 oz) 06/24/2024 74.8 kg (164 lb 12.8 oz) 06/18/2024 74 kg (163 lb 2.3 oz) 04/16/2024 73.9 kg (163 lb) Nausea:None Vomiting: None Bowel Function: normal bowel movements Erythema/Hyperpigmentation:none Desquamation:none Rash:none Skin Care: Aquaphor Skin Sensation: Within Normal Limits Focused Assessment RECTAL: Dysuria: none, Rectal pain none, and Rectal bleeding none SIGNED by: Suly Cerrato RN [facility] 11-05-2024 Note HNO ID: [id number] Author: ANDREA WU MD Service: ? Author Type: Physician Type: Progress Notes Filed: 11/05/2024 14:22 Note Text: Radiation Oncology - On Treatment Review (OTR) Note PATIENT NAME: Shashank Espinoza PATIENT DIAGNOSIS: Clinical stage IIC, cT1c, cN0, prostate adenocarcinoma with Wesley score 7 (4+3), grade group 3, PSA 11.54. COURSE: definitive AREA TREATED: Pelvis/prostate/SV CURRENT DOSE: 1750 cGy in 7 fx PLANNED DOSE: 7000 cGy in 28 fx SUBJECTIVE: He has mildly increased urinary frequency but not enough to take medications for. EXAM: KPS: 90 General Appearance: Alert and oriented. No acute distress. IMAGING/LAB RESULTS: None Treatment chart checked: Yes Patient treatment site reviewed and verified:Yes CBCTs reviewed and current:Yes Medications started: Flomax if urinary symptoms worsen. ASSESSMENT/PLAN: Clinically stable. Toxicity within expected parameters. Continue radiation treatment as planned. Andrea Wu MD [facility] 11-05-2024 Note HNO ID: [id number] Author: SULY CERRATO RN Service: ? Author Type: Registered Nurse Type: Progress Notes Filed: 11/05/2024 14:22 Note Text: Radiation Therapy - Nursing Note (OTV) PATIENT NAME: Shashank Espinoza PATIENT November 05, 2024 [facility] FACILITY/LOCATION: [facility] NOTE TYPE: PROSTATE - MALE PELVIS Subjective Data I have trouble holding my pee when I am so full Additional Data Do you want to see a School Librarian? No Status: Patient is male Stress Scale: On a scale of 0 to 10, what number best describes how much distress you have experienced in the past week?(0 being no distress and 10 being extreme distress) 5 Social work notified: Pt denied need to see web content & social media manager at this time. Nursing Assessment Fatigue: increased fatigue over baseline but not altering normal activities Appetite: fair eats at [employer] every day, then snacks thru out day Nutritional Intake: Regular oral intake. Weight Gain/Loss: Not applicable Ambulatory weight history: Last 6 Encounter Wt Readings: Date: Wt: 10/22/2024 78.2 kg (172 lb 6.4 oz) 08/11/2024 75.8 kg (167 lb) 07/30/2024 75 kg (165 lb 5.5 oz) 06/24/2024 74.8 kg (164 lb 12.8 oz) 06/18/2024 74 kg (163 lb 2.3 oz) 04/16/2024 73.9 kg (163 lb) Nausea:None Vomiting: None Bowel Function: loose but not multiple times a day or even every day Erythema/Hyperpigmentation:none Desquamation:none Rash:none Skin Care: Aquaphor Skin Sensation: Within Normal Limits Focused Assessment PROSTATE - MALE PELVIS: Rectal bleeding: No. Rectal pain: No. Bladder function: urgency, frequency. Urinary frequency (D/N): stable/2-3 not a lot of volume, dribbles some. SIGNED by: Suly Cerrato RN [facility] 10-29-2024 Note HNO ID: [id number] Author: ANDREA WU MD Service: ? Author Type: Physician Type: Progress Notes Filed: 10/29/2024 14:50 Note Text: Radiation Oncology - On Treatment Review (OTR) Note PATIENT NAME: Shashank Espinoza PATIENT DIAGNOSIS: Clinical stage IIC, cT1c, cN0, prostate adenocarcinoma with Juan A score 7 (4+3), grade group 3, PSA 11.54. COURSE: definitive AREA TREATED: Pelvis/prostate/SV CURRENT DOSE: 500 cGy in 2 fx PLANNED DOSE: 7000 cGy in 28 fx SUBJECTIVE: He is doing well without any specific new complaints. EXAM: KPS: 100 General Appearance: Alert and oriented. No acute distress. IMAGING/LAB RESULTS: None Treatment chart checked: Yes Patient treatment site reviewed and verified:Yes CBCTs reviewed and current:Yes Medications started: None ASSESSMENT/PLAN: Clinically stable. No signs of toxicity. Continue radiation treatment as planned. Andrea Wu MD [facility] 10-29-2024 History of Present illness Narrative Radiation Oncology - On Treatment Review (OTR) Note PATIENT NAME: Shashank Espinoza PATIENT DIAGNOSIS: Clinical stage IIC, cT1c, cN0, prostate adenocarcinoma with Juan A score 7 (4+3), grade group 3, PSA 11.54. COURSE: definitive AREA TREATED: Pelvis/prostate/SV CURRENT DOSE: 500 cGy in 2 fx PLANNED DOSE: 7000 cGy in 28 fx SUBJECTIVE: He is doing well without any specific new complaints. EXAM: KPS: 100 General Appearance: Alert and oriented. No acute distress. IMAGING/LAB RESULTS: None Treatment chart checked: Yes Patient treatment site reviewed and verified:Yes CBCTs reviewed and current:Yes Medications started: None ASSESSMENT/PLAN: Clinically stable. No signs of toxicity. Continue radiation treatment as planned. Andrea Wu MD Radiation Therapy - Nursing Note (OTV) PATIENT NAME: Shashank Espinoza PATIENT October 29, 2024 [facility] FACILITY/LOCATION: [place] NURSING NOTE TYPE: PROSTATE - MALE PELVIS Subjective Data no complaints Additional Data Do you want to see a School Librarian? No Status: Patient is male Stress Scale: On a scale of 0 to 10, what number best describes how much distress you have experienced in the past week?(0 being no distress and 10 being extreme distress) 5 Social work notified: Pt denied need to see web content & social media manager at this time. Nursing Assessment Fatigue: none Appetite: good Nutritional Intake: Regular oral intake. Weight Gain/Loss: Not applicable Ambulatory weight history: Last 6 Encounter Wt Readings: Date: Wt: 10/22/2024 78.2 kg (172 lb 6.4 oz) 08/11/2024 75.8 kg (167 lb) 07/30/2024 75 kg (165 lb 5.5 oz) 06/24/2024 74.8 kg (164 lb 12.8 oz) 06/18/2024 74 kg (163 lb 2.3 oz) 04/16/2024 73.9 kg (163 lb) Nausea:None Vomiting: None Bowel Function: normal bowel movements Erythema/Hyperpigmentation:none Desquamation:none Rash:none Skin Care: Aquaphor Skin Sensation: Within Normal Limits Focused Assessment PROSTATE - MALE PELVIS: Rectal bleeding: No. Rectal pain: No. Bladder function: no problems. Urinary frequency (D/N): stable/stable. SIGNED by: Suly Cerrato RN documented in this encounter [facility] 10-29-2024 Note HNO ID: [id number] Author: SULY CERRATO RN Service: ? Author Type: Registered Nurse Type: Progress Notes Filed: 10/29/2024 14:50 Note Text: Radiation Therapy - Nursing Note (OTV) PATIENT NAME: Shashank Espinoza PATIENT October 29, 2024 [facility] FACILITY/LOCATION: [facility] NOTE TYPE: PROSTATE - MALE PELVIS Subjective Data no complaints Additional Data Do you want to see a School Librarian? No Status: Patient is male Stress Scale: On a scale of 0 to 10, what number best describes how much distress you have experienced in the past week?(0 being no distress and 10 being extreme distress) 5 Social work notified: Pt denied need to see web content & social media manager at this time. Nursing Assessment Fatigue: none Appetite: good Nutritional Intake: Regular oral intake. Weight Gain/Loss: Not applicable Ambulatory weight history: Last 6 Encounter Wt Readings: Date: Wt: 10/22/2024 78.2 kg (172 lb 6.4 oz) 08/11/2024 75.8 kg (167 lb) 07/30/2024 75 kg (165 lb 5.5 oz) 06/24/2024 74.8 kg (164 lb 12.8 oz) 06/18/2024 74 kg (163 lb 2.3 oz) 04/16/2024 73.9 kg (163 lb) Nausea:None Vomiting: None Bowel Function: normal bowel movements Erythema/Hyperpigmentation:none Desquamation:none Rash:none Skin Care: Aquaphor Skin Sensation: Within Normal Limits Focused Assessment PROSTATE - MALE PELVIS: Rectal bleeding: No. Rectal pain: No. Bladder function: no problems. Urinary frequency (D/N): stable/stable. SIGNED by: Suly Cerrato RN [facility] 10-23-2024 Note HNO ID: [id number] Author: ANDREA WU MD Service: ? Author Type: Physician Type: Progress Notes Filed: 10/23/2024 11:12 Note Text: He has decided to pursue radiation treatment. As he is in unfavorable intermediate risk group, I told him and his familay that combined short-term hormonal therapy can improve outcome. However, he has underlying heart disease and he is reluctant to take risks of additional side effects. He wishes to pursue radiation treatment alone. I explained the rationale, benefits, alternative management options and potential complications of radiation treatment to the patient and he understands and agrees to proceed. It was explained and understood that other personnel such as radiation therapists, solid surface fabricator, and physicists will participate in planning and delivery of radiation treatment. Permanent tattoo arroyo will be placed to aid with positioning for daily treatment and the patient consented. Patient will have a simulation procedure today. [facility] 10-22-2024 Instructions Yuval Dorantes MD - 10/22/2024 2:50 PM EDT - Continue taking Clonazepam as prescribed. Your next refill will be available on November 06. - Maintain a high-protein diet to support your overall health and treatment. Include a variety of proteins such as chicken, pork, and fish (e.g., salmon and tuna) in your meals. Limit processed meats like sausage and reduce intake of processed carbohydrates such as spaghetti and pizza. - Drink 40 ounces of water before each radiation treatment session as instructed. - Complete your scheduled radiation treatments. - Follow up with your oncologist, Dr. Wu, as scheduled. - Next appointment with your primary care physician is in 4 months. documented in this encounter [facility] 10-22-2024 History of Present illness Narrative This note was created using English Helperter. Subjective Shashank Espinoza is a 79 year old male. Patient presents with: 4 month f/up: Just dx prostate cancer Shashank is a 79-year-old male with a history of prostate cancer and COPD, presenting for a 4-month follow-up. Shashank was recently diagnosed with prostate cancer and is currently under the care of Dr. [facility]. He reports not receiving any test results related to his prostate cancer, including a recent PET scan and biopsy, as he does not have access to MyChart and prefers printed copies. He also inquires about his PSA levels, noting that they started at 5 and have increased to 11.5. He requests copies of his PET scan, biopsy results, and PSA levels. Shashank underwent a simulation test this past Sunday, which involved drinking a large amount of water and making a bowel movement. He mentions that a tattoo was placed around his prostate during this procedure. He is scheduled to start radiation treatment on , the , and expresses concerns about the treatment process, including the requirement to drink 40 ounces of water before each session. He also inquires about the necessity of surgery, given his age and COPD, and mentions that he has three nodules on his lungs. Shashank reports a lack of support and difficulty remembering information provided by his doctors. He also asks about dietary recommendations, specifically regarding protein intake, and mentions that he does not cook and relies on restaurants for his meals. He is currently taking clonazepam and requests a refill. 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 MRA 07/07/11 Anxiety state, unspecified Ascending aorta dilatation 10/14/2015 CT Chest 4.5X3.96cm BENIGN NEOPLASM LG BOWEL 05/08/2005 colon polyps Benign prostatic hyperplasia with urinary retention CAD (coronary artery disease) 08/22/2010 s/p drug eluting stent placement (2) Carotid artery occlusion, right MRI 07/04/11; MRA 07/07/11 Centrilobular emphysema (HCC) 09/25/2022 Depressive disorder, not elsewhere classified Disorder of bone and cartilage, unspecified Elevated prostate specific antigen (PSA) Essential hypertension, benign GASTROINTEST HEMORR NOS 05/08/2005 Hearing loss in left ear Dr. 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 albuterol HFA (PROVENTIL HFA, VENTOLIN HFA) 90 mcg/actuation inhaler Inhale 2 Puffs as instructed every 4 hours as needed. fluticasone (FLONASE) 50 mcg/actuation nasal spray Use 2 Sprays in each nostril once daily as needed. Rinse mouth after use. traZODone (DESYREL) 100 mg tablet Take 1-2 tablets by mouth daily at bedtime. ([facility]) psyllium husk (KONSYL SUGAR-FREE) 6 gram/6 gram powd Take 1 Scoop by mouth once daily as needed. docusate sodium (COLACE) 100 mg capsule Take 1 capsule by mouth twice daily as needed for Constipation. atorvastatin (LIPITOR) 40 mg tablet Take 1 tablet by mouth once daily. For cholesterol. ([facility]) famotidine (PEPCID) 40 mg tablet Take 1 tablet by mouth twice daily. amLODIPine (NORVASC) 10 mg tablet Take 1 tablet by mouth once daily. 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 Cruz) Aspirin 81 mg ORAL Tab Take 81 mg by mouth once daily. [START ON 11/06/2024] clonazePAM (KLONOPIN) 1 mg tablet Take 1 tablet by mouth daily at bedtime. May also take 1 tablet once daily as needed. Do all this for 90 days. Patient should start on November 06, 2024. levothyroxine (SYNTHROID) 50 mcg tablet Take 1 tablet by mouth once daily. Except take 2 on Sunday ([facility]) ipratropium bromide (ATROVENT) 42 mcg (0.06 %) nasal spray Use 2 Sprays in the nose four times daily as needed. (Patient not taking: Reported on 10/22/2024) nitroglycerin sublingual (NITROQUICK) 0.4 mg SL tablet Dissolve 1 tablet under the tongue as needed. FOR CHEST PAIN. IF NO RELIEF CALL 911 losartan (COZAAR) 100 mg tablet Take 1 tablet by mouth once daily. No current facility-administered medications for this visit. Review of Systems Objective BP 116/60 Pulse 70 Resp 14 Wt 78.2 kg (172 lb 6.4 oz) SpO2 97% BMI 24.74 kg/m Last 5 Encounter Wt Readings: Date: Wt: 10/22/2024 78.2 kg (172 lb 6.4 oz) 08/11/2024 75.8 kg (167 lb) 07/30/2024 75 kg (165 lb 5.5 oz) 06/24/2024 74.8 kg (164 lb 12.8 oz) 06/18/2024 74 kg (163 lb 2.3 oz) No waist measurement recorded Estimated body mass index is 24.74 kg/m as calculated from the following: Height as of 10/01/24: 177.8 cm (5' 10). Weight as of this encounter: 78.2 kg (172 lb 6.4 oz). Last 5 Encounter BP Readings: Date: BP: 10/22/2024 116/60 09/15/2024 122/80 08/11/2024 98/64 07/30/2024 130/78 06/24/2024 128/78 Physical Exam Vitals reviewed. Constitutional: Appearance: Normal appearance. Eyes: Conjunctiva/sclera: Conjunctivae normal. Cardiovascular: Rate and Rhythm: Normal rate and regular rhythm. Heart sounds: Normal heart sounds. Pulmonary: Effort: Pulmonary effort is normal. Breath sounds: Normal breath sounds. Musculoskeletal: Right lower leg: No edema. Left lower leg: No edema. Skin: General: Skin is warm and dry. Neurological: General: No focal deficit present. Mental Status: He is alert and oriented to person, place, and time. Psychiatric: Mood and Affect: Mood normal. Behavior: Behavior normal. Thought Content: Thought content normal. Judgment: Judgment normal. Labs: (No Date) - PSA: 11.5 (August) - Blood counts: Within normal limits - TSH: 2.742 - LDL: 77 mg/dL - Total Cholesterol: 130 mg/dL - HDL: 43 mg/dL - Triglycerides: 109 mg/dL - Hemoglobin A1c: 5.3 - PSA: Elevated compared to prior levels Imaging: (No Date) PET Scan: - No evidence of metastatic disease in lymph nodes or other organs - Focal posterior mid peripheral zone lesion confined to the prostate Tests: (No Date) Prostate Biopsy: - Prostatic adenocarcinoma - 3 of 12 cores positive for malignancy (90% involvement) Assessment and Plan # Psychophysiological insomnia (F51.04) - No current issues discussed. Stable on clonazepam. # Prostate cancer (HCC) (C61) - Diagnosed with prostatic adenocarcinoma; biopsy revealed 3 out of 12 cores positive for cancer, with 90% involvement in positive cores. - Recent PET scan showed no metastasis to lymph nodes or other systems; cancer localized to the prostate. - Undergoing radiation therapy with Dr. Wu; 28 sessions planned. - Discussed risks and benefits of radiation vs. surgery; surgery deemed high risk due to age (79) and COPD. - Provided copies of PET scan, biopsy results, and PSA levels. - Advised to maintain adequate protein intake to support overall health and treatment efficacy. # Anxiety (F41.9) - Managed with Clonazepam; prescription refilled with next pickup date set for November 06. # Essential (primary) hypertension (I10) - No current issues discussed. Stable on current med(s) # Centrilobular emphysema (HCC) (J43.2) - Condition contributes to increased surgical risk; discussed in context of prostate cancer treatment options. Continues to follow up with Dr. Carla Ulrich I spent a total of 41 minutes on the date of the service which included [id number] patient care, completing clinical documentation, obtaining and/or reviewing separately obtained history, performing a medically appropriate examination, counseling and educating the patient/family/caregiver, ordering medications, tests, or procedures, independently interpreting results (not separately reported), and communicating results to the patient/family/caregiver. Yuval Dorantes MD documented in this encounter [facility] 10-22-2024 Note HNO ID: [id number] Author: YUVAL DORANTES MD Service: ? Author Type: Physician Type: Progress Notes Filed: 10/22/2024 14:51 Note Text: This note was created using GROUNDFLOORriter. Subjective Shashank Espinoza is a 79 year old male. Patient presents with: 4 month f/up: Just dx prostate cancer Shashank is a 79-year-old male with a history of prostate cancer and COPD, presenting for a 4-month follow-up. Shashank was recently diagnosed with prostate cancer and is currently under the care of Dr. Wu at [facility]. He reports not receiving any test results related to his prostate cancer, including a recent PET scan and biopsy, as he does not have access to [employer] and prefers printed copies. He also inquires about his PSA levels, noting that they started at 5 and have increased to 11.5. He requests copies of his PET scan, biopsy results, and PSA levels. Shashank underwent a simulation test this past Sunday, which involved drinking a large amount of water and making a bowel movement. He mentions that a tattoo was placed around his prostate during this procedure. He is scheduled to start radiation treatment on , the , and expresses concerns about the treatment process, including the requirement to drink 40 ounces of water before each session. He also inquires about the necessity of surgery, given his age and COPD, and mentions that he has three nodules on his lungs. Shashank reports a lack of support and difficulty remembering information provided by his doctors. He also asks about dietary recommendations, specifically regarding protein intake, and mentions that he does not cook and relies on restaurants for his meals. He is currently taking clonazepam and requests a refill. 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 MRA 07/07/11 Anxiety state, unspecified Ascending aorta dilatation 10/14/2015 CT Chest 4.5X3.96cm BENIGN NEOPLASM LG BOWEL 05/08/2005 colon polyps Benign prostatic hyperplasia with urinary retention CAD (coronary artery disease) 08/22/2010 s/p drug eluting stent placement (2) Carotid artery occlusion, right MRI 07/04/11; MRA 07/07/11 Centrilobular emphysema (HCC) 09/25/2022 Depressive disorder, not elsewhere classified Disorder of bone and cartilage, unspecified Elevated prostate specific antigen (PSA) Essential hypertension, benign GASTROINTEST HEMORR NOS 05/08/2005 Hearing loss in left ear Dr. 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 albuterol HFA (PROVENTIL HFA, VENTOLIN HFA) 90 mcg/actuation inhaler Inhale 2 Puffs as instructed every 4 hours as needed. fluticasone (FLONASE) 50 mcg/actuation nasal spray Use 2 Sprays in each nostril once daily as needed. Rinse mouth after use. traZODone (DESYREL) 100 mg tablet Take 1-2 tablets by mouth daily at bedtime. ([facility]) psyllium husk (KONSYL SUGAR-FREE) 6 gram/6 gram powd Take 1 Scoop by mouth once daily as needed. docusate sodium (COLACE) 100 mg capsule Take 1 capsule by mouth twice daily as needed for Constipation. atorvastatin (LIPITOR) 40 mg tablet Take 1 tablet by mouth once daily. For cholesterol. ([facility]) famotidine (PEPCID) 40 mg tablet Take 1 tablet by mouth twice daily. amLODIPine (NORVASC) 10 mg tablet Take 1 tablet by mouth once daily. 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 Cruz) Aspirin 81 mg ORAL Tab Take 81 mg by mouth once daily. [START ON 11/06/2024] clonazePAM (KLONOPIN) 1 mg tablet Take 1 tablet by mouth daily at bedtime. May also take 1 tablet once daily as needed. Do all this for 90 days. Patient should start on November 06, 2024. levothyroxine (SYNTHROID) 50 mcg tablet Take 1 tablet by mouth once daily. Except take 2 on Sunday ([facility]) ipratropium bromide (ATROVENT) 42 mcg (0.06 %) nasal spray Use 2 Sprays in the nose four times daily as needed. (Patient not taking: Reported on 10/22/2024) nitroglycerin sublingual (NITROQUICK) 0.4 mg SL tablet Dissolve 1 tablet under the tongue as needed. FOR CHEST PAIN. IF NO RELIEF CALL 911 losartan (COZAAR) 100 mg tablet Take 1 tablet by mouth once daily. No current facility-administered medications for this visit. Review of Systems Objective BP 116/60 Pulse 70 Resp 14 Wt 78.2 kg (172 lb 6.4 oz) SpO2 97% BMI 24.74 kg/m? Last 5 Encounter Wt Readings: Date: Wt: 10/22/2024 78.2 kg (172 lb 6.4 oz) 08/11/2024 (more content not included)... [facility] 10-20-2024 Note HNO ID: [id number] Author: KARY MCCLELLAN RN Service: ? Author Type: Registered Nurse Type: Progress Notes Filed: 10/20/2024 13:28 Note Text: Radiation Therapy - Patient Education Note PATIENT NAME: Shashank Espinoza PATIENT October 20, 2024 [facility] FACILITY/LOCATION: [place] READINESS TO LEARN Cognitive Ability: Alert and oriented Motivation to learn: Eager Interested Family Support: High - Very involved in pt care Instruction provide to: Patient and Family member Patient learns best by: Multiple Methods Factors effecting learning: Emotional Factors: Anxious Overwhelmed Physical limitations effecting learning: None LEARNING RESPONSE Diagnosis: Pt simulated today for radiation therapy to prostate. Education Topic/Teaching Points: Radiation therapy, Side effects, and OTV: Method of instruction: Teach Back skin care Individual instruction Written instruction/Handouts Verbal instruction Patient /Family response: Patient and family verbalized understanding of radiation treatments, side effects, OTV, and transportation. Follow-up plan: Patient instructed to call with any further issues Re-teach - Using different method Reinforce - Repeat previous content Contact information given. Supplemental material: Informational handouts on Department phone list, Bladder function, Diarrhea, Fatigue, and [place] instructions, XRT sheet and Aquaphor handout. Referral (recommendation): None, Pt denied need for social work, van service, and cst. Patient has an Onbody or Implanted device: No Signed by: Kary Mcclellan RN [facility] 10-20-2024 History of Present illness Narrative Radiation Therapy - Patient Education Note PATIENT NAME: Shashank Espinoza PATIENT October 20, 2024 [facility] FACILITY/LOCATION: [place] READINESS TO LEARN Cognitive Ability: Alert and oriented Motivation to learn: Eager Interested Family Support: High - Very involved in pt care Instruction provide to: Patient and Family member Patient learns best by: Multiple Methods Factors effecting learning: Emotional Factors: Anxious Overwhelmed Physical limitations effecting learning: None LEARNING RESPONSE Diagnosis: Pt simulated today for radiation therapy to prostate. Education Topic/Teaching Points: Radiation therapy, Side effects, and OTV: Method of instruction: Teach Back skin care Individual instruction Written instruction/Handouts Verbal instruction Patient /Family response: Patient and family verbalized understanding of radiation treatments, side effects, OTV, and transportation. Follow-up plan: Patient instructed to call with any further issues Re-teach - Using different method Reinforce - Repeat previous content Contact information given. Supplemental material: Informational handouts on Department phone list, Bladder function, Diarrhea, Fatigue, and [place] instructions, XRT sheet and Aquaphor handout. Referral (recommendation): None, Pt denied need for social work, van service, and cst. Patient has an Onbody or Implanted device: No Signed by: Kary Mcclellan RN documented in this encounter [facility] 10-20-2024 History of Present illness Narrative SHASHANK ESPINOZA [id number] 10/20/2024 [facility] Department of Radiation Oncology [facility] RADIATION ONCOLOGY SIMULATION NOTE DATE OF SIMULATION: 10/20/2024 MACHINE: [employer] Definition CT Simulator Diagnosis: Clinical stage IIC, cT1c, cN0, prostate adenocarcinoma with Wesley score 7 (4+3), grade group 3, PSA 11.54. AREA:Pelvis/Prostate PATIENT POSITION: Supine. CONTRAST: None PROTOCOL: None BLOCKING: Custom blocking to be determined at treatment planning. FIXATION DEVICE: In order to achieve accurate and reproducible treatments, the patient is to be immobilized with vac bag. PROCEDURE: A time-out was conducted and recorded by the therapist. Patient was simulated on the CT scanner for external beam radiation therapy. Treatment site was marked by the simulation therapist. ASSESSMENT/PLAN: Patient tolerated simulation procedure well. Treatments will be initiated after treatment planning. The patient is scheduled for a verification simulation on the treatment machine to ensure proper set-up and field arrangement is correct prior to the first treatment of primary and boost briseno if applicable. Electronically Signed Andrea Wu M.D./kathi 1:27 AM documented in this encounter [facility] 10-20-2024 History of Present illness Narrative SHASHANK ESPINOZA [id number] 10/20/2024 [facility] Department of Radiation Oncology Treatment Planning Note For reasons stated in the consult note, Shashank Espinoza is a candidate for radiation therapy. Based on review and interpretation of the relevant diagnostic studies together with the exam findings, Shashank Espinoza was simulated on 10/20/2024 at which time the target volume and/or requisite briseno were delineated, as indicated in the simulation note, to be treated according to the prescription. The treatment target and organs at risk were contoured on the simulation scan. After reviewing multiple treatment plans with dosimetry, the best plan was approved to deliver the prescribed course of radiation to the target area using inverse planning to allow for the best isodose distribution, treating to the 97.6% isodose line with 10 MV / and 3 vmat briseno. Custom MLC for IMRT were the treatment device(s) used to shape/modify the beams. Limiting dose to normal tissue was confirmed upon review of the calculated dose volume histogram. IMRT planning was used because it best met the dose/volume constraints for the organs at risk for this patient, better than what could be achieved using conventional or 3D planning. The specific dose requirements for the PTV, organs at risk and dose-volume histograms are contained in this treatment plan and/or elsewhere in the medical record. A completed summary of this plan dated 10/22/2024 incorporated herein by reference includes dose, beam arrangements, energy, blocking, isodose distribution, and/or ports and DVH. documented in this encounter [facility] 10-20-2024 Note HNO ID: [id number] Author: ANDREA WU MD Service: Radiation Oncology Author Type: Physician Type: Progress Notes Filed: 10/22/2024 08:21 Note Text: SHASHANK ESPINOZA [id number] 10/20/2024 [facility] Department of Radiation Oncology Treatment Planning Note For reasons stated in the consult note, Shashank Espinoza is a candidate for radiation therapy. Based on review and interpretation of the relevant diagnostic studies together with the exam findings, Shashank Espinoza was simulated on 10/20/2024 at which time the target volume and/or requisite briseno were delineated, as indicated in the simulation note, to be treated according to the prescription. The treatment target and organs at risk were contoured on the simulation scan. After reviewing multiple treatment plans with dosimetry, the best plan was approved to deliver the prescribed course of radiation to the target area using inverse planning to allow for the best isodose distribution, treating to the 97.6% isodose line with 10 MV / and 3 vmat briseno. Custom MLC for IMRT were the treatment device(s) used to shape/modify the beams. Limiting dose to normal tissue was confirmed upon review of the calculated dose volume histogram. IMRT planning was used because it best met the dose/volume constraints for the organs at risk for this patient, better than what could be achieved using conventional or 3D planning. The specific dose requirements for the PTV, organs at risk and dose-volume histograms are contained in this treatment plan and/or elsewhere in the medical record. A completed summary of this plan dated 10/22/2024 incorporated herein by reference includes dose, beam arrangements, energy, blocking, isodose distribution, and/or ports and DVH. Electronically Signed Andrea Wu M.D. :21 AM [facility] 10-20-2024 Note HNO ID: [id number] Author: ANDREA WU MD Service: Radiation Oncology Author Type: Physician Type: Progress Notes Filed: 10/21/2024 11:27 Note Text: SHASHANK ESPINOZA [id number] 10/20/2024 [facility] Department of Radiation Oncology [facility] RADIATION ONCOLOGY SIMULATION NOTE DATE OF SIMULATION: 10/20/2024 MACHINE: Siemens Definition CT Simulator Diagnosis: Clinical stage IIC, cT1c, cN0, prostate adenocarcinoma with Wesley score 7 (4+3), grade group 3, PSA 11.54. AREA:Pelvis/Prostate PATIENT POSITION: Supine. CONTRAST: None PROTOCOL: None BLOCKING: Custom blocking to be determined at treatment planning. FIXATION DEVICE: In order to achieve accurate and reproducible treatments, the patient is to be immobilized with vac bag. PROCEDURE: A time-out was conducted and recorded by the therapist. Patient was simulated on the CT scanner for external beam radiation therapy. Treatment site was marked by the simulation therapist. ASSESSMENT/PLAN: Patient tolerated simulation procedure well. Treatments will be initiated after treatment planning. The patient is scheduled for a verification simulation on the treatment machine to ensure proper set-up and field arrangement is correct prior to the first treatment of primary and boost briseno if applicable. Electronically Signed Andrea Wu M.D./kathi 511:27 AM [facility] 10-16-2024 Telephone encounter Note I called pt and he has decided to proceed with radiation. Dr Wu aware. [facility] 10-16-2024 Miscellaneous Notes I called pt and he has decided to proceed with radiation. Dr Wu aware. Dr Wu would like us to call patient to see what he decided to do about radiation treatment. Pt asked if we would call him at 10 tomorrow 10/16 on his cell phone. documented in this encounter [facility] 10-15-[address] Wu would like us to call patient to see what he decided to do about radiation treatment. Pt asked if we would call him at 10 tomorrow 10/16 on his cell phone. [facility] 10-15-2024 History of Present illness Narrative Radiation Oncology - New Patient/Consult Note PATIENT NAME: Shashank Espinoza PATIENT REQUESTING PROVIDER: Dr. An Henley Jr DIAGNOSIS: Clinical stage IIC, cT1c, cN0, prostate adenocarcinoma with Juan A score 7 (4+3), grade group 3, PSA 11.54. HPI: 79 year old male who presents with above diagnosis, for an opinion regarding the role of radiation therapy in the management of the patient's disease. Final recommendations will be communicated back to the requesting physician by way of the shared medical record, or letter to requesting physician via US mail. 79 year old man with rising PSA to 11.54 on 06/18/24 from 8.32 on 11/22/23 and 5.84 two years ago. He underwent TRUS on 09/15/24 and the gland is moderately enlarged, measuring 50cc. There is no focal lesion within the pereferal zone of the prostate gland. Prostate biopsy and pathology showed as following: FINAL DIAGNOSIS A. Prostate, right base, biopsy: - Prostatic adenocarcinoma with intraductal features, Juan A score 4 +3 = 7 (grade group 3) involving 90% of 1 core (12 mm tumor length). - Large cribriform pattern 4. B. Prostate, right mid, biopsy: - High-grade prostatic intraepithelial neoplasia. C. Prostate, right apex, biopsy: - . Benign prostatic tissue. D. Prostate, right lateral base, biopsy: - Prostatic adenocarcinoma Juan A score 4 +3 = 7 (grade group 3) involving 90% of 1 core (14 mm tumor length). - Large cribriform pattern 4. E. Prostate, right lateral mid, biopsy: - Prostatic adenocarcinoma Wesley score 3+4 = 7 (grade group 2) involving 45% of 1 core (7 mm tumor length). - High-grade prostatic intraepithelial neoplasia. F. Prostate, right lateral apex, biopsy: - Benign prostatic tissue. G. Prostate, left base, biopsy: - Benign prostatic tissue. H. Prostate, left mid, biopsy: - Benign prostatic tissue. I. Prostate, left apex, biopsy: - Benign prostatic tissue. J. Prostate, left lateral base, biopsy: - Benign prostatic tissue. K. Prostate, left lateral mid, biopsy: - Benign prostatic tissue. L. Prostate, left lateral apex, biopsy: - Benign prostatic tissue. Prostate Cancer Biopsy Summary Number of cores examined: 12 Number of cores positive: 3 Highest Grade Group: 3 Highest % of core involvement: 90 % Cribriform pattern 4: Present Intraductal carcinoma: Present PET/CT scan on 10/06/24 showed tracer avid posterior mid right peripheral zone lesion and no other PSMA expressing metastasis. ALLERGIES Allergen Reactions Prilosec [Omeprazol* Other: See Comments GI upset Current Outpatient Medications on File Prior to Visit Medication Sig levothyroxine (SYNTHROID) 50 mcg tablet Take 1 tablet by mouth once daily. Except take 2 on Sunday [facility]) clonazePAM (KLONOPIN) 1 mg tablet Take 1 tablet by mouth daily at bedtime. May also take 1 tablet once daily as needed. Do all this for 90 days. Patient should start on July 18, 2024. tiotropium-olodaterol (STIOLTO RESPIMAT) 2.5-2.5 mcg/actuation inhaler Inhale 2 Puffs as instructed once daily. albuterol HFA (PROVENTIL HFA, VENTOLIN HFA) 90 mcg/actuation inhaler Inhale 2 Puffs as instructed every 4 hours as needed. ipratropium bromide (ATROVENT) 42 mcg (0.06 %) nasal spray Use 2 Sprays in the nose four times daily as needed. fluticasone (FLONASE) 50 mcg/actuation nasal spray Use 2 Sprays in each nostril once daily as needed. Rinse mouth after use. traZODone (DESYREL) 100 mg tablet Take 1-2 tablets by mouth daily at bedtime. ([facility]) psyllium husk (KONSYL SUGAR-FREE) 6 gram/6 gram powd Take 1 Scoop by mouth once daily as needed. nitroglycerin sublingual (NITROQUICK) 0.4 mg SL tablet Dissolve 1 tablet under the tongue as needed. FOR CHEST PAIN. IF NO RELIEF CALL 911 docusate sodium (COLACE) 100 mg capsule Take 1 capsule by mouth twice daily as needed for Constipation. atorvastatin (LIPITOR) 40 mg tablet Take 1 tablet by mouth once daily. For cholesterol. ([facility]) famotidine (PEPCID) 40 mg tablet Take 1 tablet by mouth twice daily. amLODIPine (NORVASC) 10 mg tablet Take 1 tablet by mouth once daily. 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 Cruz) losartan (COZAAR) 100 mg tablet Take 1 tablet by mouth once daily. Aspirin 81 mg ORAL Tab Take 81 mg by mouth once daily. No current facility-administered medications on file prior to visit. 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 MRA 07/07/11 Anxiety state, unspecified Ascending aorta dilatation 10/14/2015 CT Chest 4.5X3.96cm BENIGN NEOPLASM LG BOWEL 05/08/2005 colon polyps Benign prostatic hyperplasia with urinary retention CAD (coronary artery disease) 08/22/2010 s/p drug eluting stent placement (2) Carotid artery occlusion, right MRI 07/04/11; MRA 07/07/11 Centrilobular emphysema (HCC) 09/25/2022 Depressive disorder, not elsewhere classified Disorder of bone and cartilage, unspecified Elevated prostate specific antigen (PSA) Essential hypertension, benign GASTROINTEST HEMORR NOS 05/08/2005 Hearing loss in left ear Dr. 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 No PAST SURGICAL HISTORY Procedure Laterality Date ADENOIDECTOMY PRIMARY <AGE 14 Adenoidectomy COLONOSCOPY FLX DX W/COLLJ SPEC WHEN PFRMD 09/1994, 12/2001 Colonoscopy COLONOSCOPY FLX DX W/COLLJ SPEC WHEN PFRMD 10/10/2010 Colonoscopy COLONOSCOPY FLX DX W/COLLJ SPEC WHEN PFRMD 10/03/2016 normal 10 year follow up ESOPHAGOGASTRODUODENOSCOPY TRANSORAL DIAGNOSTIC 10/10/2010 EGD LEFT HEART CATH,PERCUTANEOUS 08/23/2010 Cardiac cath, L heart [facility] PAST SURGICAL HISTORY OF 12/08/2020 Examination under anesthesia, anoscopy, biopsy PROSTATE BIOPSY 2024 SIGMOIDOSCOPY FLX DX W/COLLJ SPEC BR/WA IF PFRMD 09/11/2012 Sigmoidoscopy, flexible TONSILLECTOMY PRIMARY/SECONDARY <AGE 14 Tonsillectomy FAMILY HISTORY Problem Relation Age of Onset Emphysema Father Diabetes Father heart Heart Mother mi Hypertension Mother stomach cancer other (physical problems from being in plane crash) Sister Social History Tobacco Use Smoking status: Former Current packs/day: 0.00 Average packs/day: 1 pack/day for 23.0 years (23.0 ttl pk-yrs) Types: Cigarettes Start date: 08/22/1987 Quit date: 08/22/2010 Years since quittin.1 Smokeless tobacco: Never Tobacco comments: Started at age 42 Vaping Use Vaping status: Never Used Substance Use Topics Alcohol use: Not Currently Drug use: Not Currently Types: Marijuana Comment: Stopped 2010 COMPLETE REVIEW OF SYSTEMS: GENERAL: feeling well without fatigue, no recent change in weight HEENT: denies GRACE, change in hearing or vision, no other ENT complaints NECK: denies swelling or pain in neck RESPIRATORY: h/o COPD CARDIOVASCULAR: no chest pain, no palpitations GI: constipation using Metamucil : Occasional urgency and frequency. nocturia 1/night. MUSCULOSKELETAL: denies any painful or swollen joints, no muscle aches SKIN: no rash HEMATOLOGY/LYMPHOLOGY: negative for prolonged bleeding, no swollen lymph nodes NEURO: h/o TIA in 2021 PHYSICAL EXAM: KPS: 100 General Appearance: Alert and oriented. No acute distress. HEENT: NCAT. Sclera anicteric. EOMI. Neck: Normal ROM. Chest: No respiratory distress. Musculoskeletal: Normal ROM in extremities. Neuro: Speech fluent. Gait normal. No focal deficits. Hematologic: No signs of active bleeding. RADIOLOGY/LABORATORY DATA: see HPI ASSESSMENT AND PLAN: 79 year old man with clinical stage IIC, cT1c, cN0, prostate adenocarcinoma with Juan A score 7 (4+3), grade group 3, PSA 11.54. He is in unfavorable intermediate risk group. He discussed surgery with Dr. Henley. He has history of CAD s/p stents, COPD and TIA. He may not be a great surgical candidate. He is here to discuss radiation treatment. I explained the rationale, benefits, alternative management options and potential complications of radiation treatment to the patient and he understands. He wishes to think over. Thank you very much for allowing us to participate in his care. Signed by: Andrea Wu MD Addendum (10/16/24): He told us that he has decided to pursue radiation treatment over the phone. He will be scheduled for simulation. cc: Yuval Dorantes [address] [place] [address] An Henley Jr Radiation Therapy - Nursing Note (Consult) PATIENT NAME: Shsahank Espinoza PATIENT October 15, 2024 [facility] FACILITY/LOCATION: [place] Chief Complaint: prostate cancer Reason for visit: Consult. Referring physician: Internal provider Dr Rocha Subjective Data: Prostate cancer Additional Data Do you want to see a School Librarian? No Are you interested in information about fertility? No Status: Patient is male Stress Scale: On a scale of 0 to 10, what number best describes how much distress you have experienced in the past week?(0 being no distress and 10 being extreme distress) 8 Social work notified: Pt denied need to see web content & social media manager at this time. SIGNED by: Suly Cerrato RN documented in this encounter [facility] 10-15-2024 Note HNO ID: [id number] Author: ANDREA WU MD Service: ? Author Type: Physician Type: Progress Notes Filed: 10/16/2024 13:31 Note Text: Radiation Oncology - New Patient/Consult Note PATIENT NAME: Shashank Espinoza PATIENT REQUESTING PROVIDER: Dr. An Henley Jr DIAGNOSIS: Clinical stage IIC, cT1c, cN0, prostate adenocarcinoma with Juan A score 7 (4+3), grade group 3, PSA 11.54. HPI: 79 year old male who presents with above diagnosis, for an opinion regarding the role of radiation therapy in the management of the patient's disease. Final recommendations will be communicated back to the requesting physician by way of the shared medical record, or letter to requesting physician via [place] mail. 79 year old man with rising PSA to 11.54 on 06/18/24 from 8.32 on 11/22/23 and 5.84 two years ago. He underwent TRUS on 09/15/24 and the gland is moderately enlarged, measuring 50cc. There is no focal lesion within the pereferal zone of the prostate gland. Prostate biopsy and pathology showed as following: FINAL DIAGNOSIS A. Prostate, right base, biopsy: - Prostatic adenocarcinoma with intraductal features, Juan A score 4 +3 = 7 (grade group 3) involving 90% of 1 core (12 mm tumor length). - Large cribriform pattern 4. B. Prostate, right mid, biopsy: - High-grade prostatic intraepithelial neoplasia. C. Prostate, right apex, biopsy: - . Benign prostatic tissue. D. Prostate, right lateral base, biopsy: - Prostatic adenocarcinoma Wesley score 4 +3 = 7 (grade group 3) involving 90% of 1 core (14 mm tumor length). - Large cribriform pattern 4. E. Prostate, right lateral mid, biopsy: - Prostatic adenocarcinoma Wesley score 3+4 = 7 (grade group 2) involving 45% of 1 core (7 mm tumor length). - High-grade prostatic intraepithelial neoplasia. F. Prostate, right lateral apex, biopsy: - Benign prostatic tissue. G. Prostate, left base, biopsy: - Benign prostatic tissue. H. Prostate, left mid, biopsy: - Benign prostatic tissue. I. Prostate, left apex, biopsy: - Benign prostatic tissue. J. Prostate, left lateral base, biopsy: - Benign prostatic tissue. K. Prostate, left lateral mid, biopsy: - Benign prostatic tissue. L. Prostate, left lateral apex, biopsy: - Benign prostatic tissue. Prostate Cancer Biopsy Summary Number of cores examined: 12 Number of cores positive: 3 Highest Grade Group: 3 Highest % of core involvement: 90 % Cribriform pattern 4: Present Intraductal carcinoma: Present PET/CT scan on 10/06/24 showed tracer avid posterior mid right peripheral zone lesion and no other PSMA expressing metastasis. ALLERGIES Allergen Reactions Prilosec [Omeprazol* Other: See Comments GI upset Current Outpatient Medications on File Prior to Visit Medication Sig levothyroxine (SYNTHROID) 50 mcg tablet Take 1 tablet by mouth once daily. Except take 2 on Sunday ([facility]) clonazePAM (KLONOPIN) 1 mg tablet Take 1 tablet by mouth daily at bedtime. May also take 1 tablet once daily as needed. Do all this for 90 days. Patient should start on July 18, 2024. tiotropium-olodaterol (STIOLTO RESPIMAT) 2.5-2.5 mcg/actuation inhaler Inhale 2 Puffs as instructed once daily. albuterol HFA (PROVENTIL HFA, VENTOLIN HFA) 90 mcg/actuation inhaler Inhale 2 Puffs as instructed every 4 hours as needed. ipratropium bromide (ATROVENT) 42 mcg (0.06 %) nasal spray Use 2 Sprays in the nose four times daily as needed. fluticasone (FLONASE) 50 mcg/actuation nasal spray Use 2 Sprays in each nostril once daily as needed. Rinse mouth after use. traZODone (DESYREL) 100 mg tablet Take 1-2 tablets by mouth daily at bedtime. (Get through [facility] now) psyllium husk (KONSYL SUGAR-FREE) 6 gram/6 gram powd Take 1 Scoop by mouth once daily as needed. nitroglycerin sublingual (NITROQUICK) 0.4 mg SL tablet Dissolve 1 tablet under the tongue as needed. FOR CHEST PAIN. IF NO RELIEF CALL 911 docusate sodium (COLACE) 100 mg capsule Take 1 capsule by mouth twice daily as needed for Constipation. atorvastatin (LIPITOR) 40 mg tablet Take 1 tablet by mouth once daily. For [facility]. ([facility]) famotidine (PEPCID) 40 mg tablet Take 1 tablet by mouth twice daily. amLODIPine (NORVASC) 10 mg tablet Take 1 tablet by mouth once daily. 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 Cruz) losartan (COZAAR) 100 mg tablet Take 1 tablet by mouth once daily. Aspirin 81 mg ORAL Tab Take 81 mg by mouth once daily. No current facility-administered medications on file prior to visit. 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 [facility] 10-15-2024 Note HNO ID: [id number] Author: SULY CERRATO RN Service: ? Author Type: Registered Nurse Type: Progress Notes Filed: 10/16/2024 13:31 Note Text: Radiation Therapy - Nursing Note (Consult) PATIENT NAME: Shashank Espinoza PATIENT October 15, 2024 [facility] FACILITY/LOCATION: [place] Chief Complaint: prostate cancer Reason for visit: Consult. Referring physician: Internal provider Dr Rocha Subjective Data: Prostate cancer Additional Data Do you want to see a School Librarian? No Are you interested in information about fertility? No Status: Patient is male Stress Scale: On a scale of 0 to 10, what number best describes how much distress you have experienced in the past week?(0 being no distress and 10 being extreme distress) 8 Social work notified: Pt denied need to see web content & social media manager at this time. SIGNED by: Suly Cerrato RN [facility] 10-06-2024 History of Present illness Narrative RADIOLOGY SERVICE PROGRESS NOTE SERVICE DATE: 10/06/2024 SERVICE TIME: 11:03 AM PATIENT IDENTITY VERIFICATION COMPLETED USING TWO (2) STANDARD IDENTIFIERS: Name and Date of confirmed by patient verbally FALL SCREENING: Has the patient had 2 falls in the last year or 1 fall with injury or currently using an Ambulatory Assistive Device (Walker, Cane, Wheelchair, Crutches, etc.)? No PATIENT GENDER DATA: .male ALLERGIES: NA MEDICATIONS REVIEWED: Not applicable PATIENT RELEVANT IMPLANT DATA REVIEWED: Not Applicable PATIENT PRESENTS WITH AN IMPLANTABLE OR ATTACHED SUPERVISOR LABORATORY: No CREATININE: Creatinine Date Value Ref Range Status 06/27/2022 1.14 0.73 - 1.22 mg/dL Final 12/02/2021 1.03 0.73 - 1.22 mg/dL Final 02/22/2021 1.16 0.73 - 1.22 mg/dL Final Estimated Glomerular Filtration Rate Date Value Ref Range Status 06/27/2022 67 >=60 mL/min/1.73m Final Comment: Estimated Glomerular Filtration Rate (eGFR) is calculated using the 2020 CKD-EPI creatinine equation. This equation utilizes serum creatinine, sex, and age as parameters. The creatinine assay has traceable calibration to isotope dilution-mass spectrometry. Refer to KDIGO guidelines for clinical interpretation. In patients with unstable renal function, e.g. those with acute kidney injury, the eGFR may not accurately reflect actual GFR. eGFR- Date Value Ref Range Status 02/22/2021 >60 Final P.O.C.T. RESULTS: N/A October 06, [address] PERFORMED: No IV SITE: Ambulatory: NM only - direct IV injection in the Left antecubital site POST EXAM PIV STATUS: Discontinued PROCEDURE TYPE: NM INJECT: PET/CT BODY SCAN. 9.3 mCi [id number]-[id number]. No other medications given.. ADMINISTRATION TIME: 1057 PATIENT DISCHARGED TO: Ambulatory patient, left AL department area. Is this a therapy: No A Diagnostic radioactive procedure has taken place, with no further precautions necessary other than routine body substance precautions. More information regarding radiation safety can be found using this link: [email or web address] SIGNATURE: LEEROY Mcleod) PATIENT NAME: Shashank Espinoza DATE: October 06, 2024 TIME: 11:03 AM PAGER/CONTACT #: documented in this encounter [facility] 10-06-2024 Note HNO ID: [id number] Author: ERI PHILLIP RT (R) Service: Nuclear Medicine Author Type: Technologist Type: Progress Notes Filed: 10/06/2024 11:03 Note Text: RADIOLOGY SERVICE PROGRESS NOTE SERVICE DATE: 10/06/2024 SERVICE TIME: 11:03 AM PATIENT IDENTITY VERIFICATION COMPLETED USING TWO (2) STANDARD IDENTIFIERS: Name and Date of confirmed by patient verbally FALL SCREENING: Has the patient had 2 falls in the last year or 1 fall with injury or currently using an Ambulatory Assistive Device (Walker, Cane, Wheelchair, Crutches, etc.)? No PATIENT GENDER DATA: .male ALLERGIES: NA MEDICATIONS REVIEWED: Not applicable PATIENT RELEVANT IMPLANT DATA REVIEWED: Not Applicable PATIENT PRESENTS WITH AN IMPLANTABLE OR ATTACHED SUPERVISOR LABORATORY: No CREATININE: Creatinine Date Value Ref Range Status 06/27/2022 1.14 0.73 - 1.22 mg/dL Final 12/02/2021 1.03 0.73 - 1.22 mg/dL Final 02/22/2021 1.16 0.73 - 1.22 mg/dL Final Estimated Glomerular Filtration Rate Date Value Ref Range Status 06/27/2022 67 >=60 mL/min/1.73m? Final Comment: Estimated Glomerular Filtration Rate (eGFR) is calculated using the 2020 CKD-EPI creatinine equation. This equation utilizes serum creatinine, sex, and age as parameters. The creatinine assay has traceable calibration to isotope dilution-mass spectrometry. Refer to KDIGO guidelines for clinical interpretation. In patients with unstable renal function, e.g. those with acute kidney injury, the eGFR may not accurately reflect actual GFR. eGFR- Date Value Ref Range Status 02/22/2021 >60 Final P.O.C.T. RESULTS: N/A October 06, [address] PERFORMED: No IV SITE: Ambulatory: NM only - direct IV injection in the Left antecubital site POST EXAM PIV STATUS: Discontinued PROCEDURE TYPE: NM INJECT: PET/CT BODY SCAN. 9.3 mCi [id number]. No other medications given.. ADMINISTRATION TIME: 1057 PATIENT DISCHARGED TO: Ambulatory patient, left AL department area. Is this a therapy: No A Diagnostic radioactive procedure has taken place, with no further precautions necessary other than routine body substance precautions. More information regarding radiation safety can be found using this link: [email or web address] SIGNATURE: RT Shani(R) PATIENT NAME: Shashank Espinoza DATE: October 06, 2024 TIME: 11:03 AM PAGER/CONTACT #: [facility] 10-01-2024 Telephone encounter Note Spoke to Enedelia and scheduled Gypsy Ramachandran [facility] 10-01-2024 Miscellaneous Notes Spoke to Enedelia and scheduled Gypsy Madie 1st attempt. Message left for Enedelia to contact office and schedule New Patient consult with Dr. Wu. Dr. Henley referring. Order in [facility]. PROSTATE CANCER CONSULT* Please call Enedelia espinal @ [phone] to schedule. Consult with Dr. Wu, order in [facility]. documented in this encounter [facility] 10-01-2024 Telephone encounter Note 1st attempt. Message left for Enedelia to contact office and schedule New Patient consult with Dr. Wu. Dr. Henley referring. Order in [facility]. PROSTATE CANCER CONSULT* [facility] Work Phone: 10-01-2024 Telephone encounter Note Please call Enedelia espinal @ [phone] Consult with Dr. Wu, order in [facility]. [facility] 10-01-2024 Note HNO ID: [id number] Author: AN HENLEY JR, MD Service: ? Author Type: Physician Type: Progress Notes Filed: 10/01/2024 13:20 Note Text: ESTABLISHED PATIENT OFFICE VISIT ONUR Espinoza is a 79 year old male who presents for follow of elevated PSA. PSA 11(8)(5). S/p prostate biopsy 09/15/24. GG3, cribiform pattern present. 50cc gland. Intermediate unfavorable risk. Complains of ED, but not a significant issue. Prostate Cancer Consultation Note Mr Shashank Espinoza was diagnosed with Clinical Stage(1c) Juan A's score 7 (4+3) adenocarcinoma of the prostate with an associated PSA of 11 and an estimated prostatic volume of 50. He had 3 of 12 cores positive with disease identified in the 3 portion(s) of the prostate. The patient presents with his daughter and I have discussed his apparent localized prostate cancer at length. Specifically we discussed the Wesley score, number and percent of cores involved with disease, the rosie tables risk stratification criteria which are based upon the Wesley score, PSA, and clinical T stage. Based upon the clinical features the patient falls into moderate risk category for 10 year biochemical disease free survival regardless of which therapeutic modality he chooses. He understands that there is a small, but real, chance of occult metastatic disease and the logic of when metastatic workup is appropriate. We discussed various options for management of his disease including watchful waiting, active surveillance, radiation modality and surgical extirpation. The options of watchful waiting or active surveillence were gone over and what these would entail, with selective delayed intervention, hormonal therapy in its various forms. The protocol for periodic PSA tests and repeating his transrectal prostate ultrasound, without or with prostate biopsy was covered. With respect to surgical intervention we compared and contrasted open, laparoscopic and robotic prostatectomy with or without bilateral pelvic lymphadenectomy. We compared these with respect to cancer control, urinary control, and erectile dysfunction. I explained that any patient undergoing treatment for prostate cancer may need additional therapy. The possibility of severe or total loss of urinary control, possibly needed surgery to implant an artificial urinary sphincter is possible after prostate cancer surgery. The possibility of loss of erections, and the possible treatment options was discussed. The other potential downside, including but not limited to urethral stricture, bladder neck contracture. I explained to him that robotic prostatectomy is a major surgical procedure and has possible major complications including, but not limited to bleeding requiring transfusion, rectal injury requiring a temporary colostomy, damage to abdominal structure, infection, myocardial infarction, stroke, deep vein thrombosis/ pulmonary embolism, or open conversion. We discussed the procedure related morbidity, hospitalization, and convalescence period. We have reviewed the recent data, which would show that at least one out of ten patients undergoing radical prostatectomy will have at least one complication whether minor or major, and this could be as high as 25% (one in four). We have discussed that with surgical intervention. We also discussed radiation therapy; external beam, and out-patient brachytherapy as well as the attendant procedure related morbidity as it relates to the low but known risk of fci urinary frequency, urgency, urgency with bowel movements and risk of urethral radiation injury. We also discussed time commitment for the external beam therapy being once a day, five days a week for 5-7 weeks during which most people can continue normal daily activities. I described the likelihood of flare up of hemorrhoids, and mild decrease in physical stamina during the later portion of the treatments. We discussed the time frame for PSA response that would indicate efficacy of the radiation therapy. A referral to radiation oncology was offered. Additionally, we discussed cryosurgical ablation of the prostate (with without nerve sparing). Specifically, we discussed the procedure related morbidity, risk of rectal injury, urinary incontinence, post cryo urinary frequency and urgency, and risk of impotence. We also discussed the outpatient nature of the procedure, minimal need for pain medication and the need for a urinary catheter for 2-weeks following the procedure and the time frame of PSA response that would reflect the efficacy of the cryosurgical procedure and the follow up that would be involved. Finally, with respect to the cryosurgical procedure we discussed that to date we do not have terminal worker (10-year) outcomes data, however, the published data do compare favorably to other treatment modalities and there have been no data that indicate any superiority of one pros (more content not included)... [facility] 10-01-2024 History of Present illness Narrative ESTABLISHED PATIENT OFFICE VISIT HPI Shashank Espinoza is a 79 year old male who presents for follow of elevated PSA. PSA 11(8)(5). S/p prostate biopsy 09/15/24. GG3, cribiform pattern present. 50cc gland. Intermediate unfavorable risk. Complains of ED, but not a significant issue. Prostate Cancer Consultation Note Mr Shashank Espinoza was diagnosed with Clinical Stage(1c) Juan A's score 7 (4+3) adenocarcinoma of the prostate with an associated PSA of 11 and an estimated prostatic volume of 50. He had 3 of 12 cores positive with disease identified in the 3 portion(s) of the prostate. The patient presents with his daughter and I have discussed his apparent localized prostate cancer at length. Specifically we discussed the Juan A score, number and percent of cores involved with disease, the rosie tables risk stratification criteria which are based upon the Juan A score, PSA, and clinical T stage. Based upon the clinical features the patient falls into moderate risk category for 10 year biochemical disease free survival regardless of which therapeutic modality he chooses. He understands that there is a small, but real, chance of occult metastatic disease and the logic of when metastatic workup is appropriate. We discussed various options for management of his disease including watchful waiting, active surveillance, radiation modality and surgical extirpation. The options of watchful waiting or active surveillence were gone over and what these would entail, with selective delayed intervention, hormonal therapy in its various forms. The protocol for periodic PSA tests and repeating his transrectal prostate ultrasound, without or with prostate biopsy was covered. With respect to surgical intervention we compared and contrasted open, laparoscopic and robotic prostatectomy with or without bilateral pelvic lymphadenectomy. We compared these with respect to cancer control, urinary control, and erectile dysfunction. I explained that any patient undergoing treatment for prostate cancer may need additional therapy. The possibility of severe or total loss of urinary control, possibly needed surgery to implant an artificial urinary sphincter is possible after prostate cancer surgery. The possibility of loss of erections, and the possible treatment options was discussed. The other potential downside, including but not limited to urethral stricture, bladder neck contracture. I explained to him that robotic prostatectomy is a major surgical procedure and has possible major complications including, but not limited to bleeding requiring transfusion, rectal injury requiring a temporary colostomy, damage to abdominal structure, infection, myocardial infarction, stroke, deep vein thrombosis/ pulmonary embolism, or open conversion. We discussed the procedure related morbidity, hospitalization, and convalescence period. We have reviewed the recent data, which would show that at least one out of ten patients undergoing radical prostatectomy will have at least one complication whether minor or major, and this could be as high as 25% (one in four). We have discussed that with surgical intervention. We also discussed radiation therapy; external beam, and out-patient brachytherapy as well as the attendant procedure related morbidity as it relates to the low but known risk of fci urinary frequency, urgency, urgency with bowel movements and risk of urethral radiation injury. We also discussed time commitment for the external beam therapy being once a day, five days a week for 5-7 weeks during which most people can continue normal daily activities. I described the likelihood of flare up of hemorrhoids, and mild decrease in physical stamina during the later portion of the treatments. We discussed the time frame for PSA response that would indicate efficacy of the radiation therapy. A referral to radiation oncology was offered. Additionally, we discussed cryosurgical ablation of the prostate (with without nerve sparing). Specifically, we discussed the procedure related morbidity, risk of rectal injury, urinary incontinence, post cryo urinary frequency and urgency, and risk of impotence. We also discussed the outpatient nature of the procedure, minimal need for pain medication and the need for a urinary catheter for 2-weeks following the procedure and the time frame of PSA response that would reflect the efficacy of the cryosurgical procedure and the follow up that would be involved. Finally, with respect to the cryosurgical procedure we discussed that to date we do not have fci (10-year) outcomes data, however, the published data do compare favorably to other treatment modalities and there have been no data that indicate any superiority of one prostate cancer treatment modality over another. I answered all of his questions today and encouraged him to call me if any other questions come to mind. He expressed understanding today's conversation. Total [id number] discussion >30 min; and >50% of that time was spent in counseling. Copd Cad MEDICATIONS: levothyroxine (SYNTHROID) 50 mcg tablet Take 1 tablet by mouth once daily. Except take 2 on Sunday ([facility]) clonazePAM (KLONOPIN) 1 mg tablet Take 1 tablet by mouth daily at bedtime. May also take 1 tablet once daily as needed. Do all this for 90 days. Patient should start on July 18, 2024. tiotropium-olodaterol (STIOLTO RESPIMAT) 2.5-2.5 mcg/actuation inhaler Inhale 2 Puffs as instructed once daily. albuterol HFA (PROVENTIL HFA, VENTOLIN HFA) 90 mcg/actuation inhaler Inhale 2 Puffs as instructed every 4 hours as needed. ipratropium bromide (ATROVENT) 42 mcg (0.06 %) nasal spray Use 2 Sprays in the nose four times daily as needed. fluticasone (FLONASE) 50 mcg/actuation nasal spray Use 2 Sprays in each nostril once daily as needed. Rinse mouth after use. traZODone (DESYREL) 100 mg tablet Take 1-2 tablets by mouth daily at bedtime. ([facility]) psyllium husk (KONSYL SUGAR-FREE) 6 gram/6 gram powd Take 1 Scoop by mouth once daily as needed. nitroglycerin sublingual (NITROQUICK) 0.4 mg SL tablet Dissolve 1 tablet under the tongue as needed. FOR CHEST PAIN. IF NO RELIEF CALL 911 docusate sodium (COLACE) 100 mg capsule Take 1 capsule by mouth twice daily as needed for Constipation. atorvastatin (LIPITOR) 40 mg tablet Take 1 tablet by mouth once daily. For cholesterol. (From [place]) famotidine (PEPCID) 40 mg tablet Take 1 tablet by mouth twice daily. amLODIPine (NORVASC) 10 mg tablet Take 1 tablet by mouth once daily. 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 Cruz) losartan (COZAAR) 100 mg tablet Take 1 tablet by mouth once daily. Aspirin 81 mg ORAL Tab Take 81 mg by mouth once daily. Review of Systems Constitutional: Negative for activity change. Genitourinary: Negative for hematuria and testicular pain. 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 MRA 07/07/11 Anxiety state, unspecified Ascending aorta dilatation (HCC) 10/14/2015 CT Chest 4.5X3.96cm BENIGN NEOPLASM LG BOWEL 05/08/2005 colon polyps Benign prostatic hyperplasia with urinary retention CAD (coronary artery disease) 08/22/2010 s/p drug eluting stent placement (2) Carotid artery occlusion, right MRI 07/04/11; MRA 07/07/11 Centrilobular emphysema (HCC) 09/25/2022 Depressive disorder, not elsewhere classified Disorder of bone and cartilage, unspecified Elevated prostate specific antigen (PSA) Essential hypertension, benign GASTROINTEST HEMORR NOS 05/08/2005 Hearing loss in left ear Dr. 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 Treated 3 times (twice in 90's); 3rd treatment effective FAMILY HISTORY Problem Relation Age of Onset Emphysema Father Diabetes Father heart Heart Mother mi Hypertension Mother stomach cancer other (physical problems from being in plane crash) Sister SOCIAL HISTORY Social History Tobacco Use Smoking status: Former Current packs/day: 0.00 Average packs/day: 1 pack/day for 23.0 years (23.0 ttl pk-yrs) Types: Cigarettes Start date: 08/22/1987 Quit date: 08/22/2010 Years since quittin.1 Smokeless tobacco: Never Tobacco comments: Started at age 42 Vaping Use Vaping status: Never Used Substance Use Topics Alcohol use: Not Currently Drug use: Not Currently Types: Marijuana Comment: Stopped 2010 PHYSICAL EXAMINATION Pulse 74 Ht 177.8 cm (5' 10) SpO2 95% BMI 23.96 kg/m General appearance: Well appearing, alert, in no acute distress, and well-hydrated, well nourished Skin: Skin color, texture, turgor normal, no suspicious rashes or lesions ASSESSMENT AND PLAN 1. Elevated prostate specific antigen (PSA) 2. Prostate cancer (HCC) - PSA rising, 11(8)(5) - Prostate biopsy 09/15/24 GG3, cribiform, 50cc gland, intermediate unfavorable risk - Options discussed, RALP vs radiation - leaning toward radiation given COPD and heart stents - Follow up with radiation oncology - Will need bone scan and CT a/p Satnam Wong MD Urology PGY-4 Pager #[phone] 10/01/2024 12:20 PM I saw and evaluated the patient. Discussed with resident and agree with resident's findings and plan as documented in the resident's note. Psma Rad/onc 6 months Psa prior An Henley Jr, MD documented in this encounter [facility] 09-15-2024 Note HNO ID: [id number] Author: AN HENLEY JR, MD Service: ? Author Type: Physician Type: Procedures Filed: 09/15/2024 15:08 Note Text: PROSTATE BIOPSY WITH ULTRASOUND GUIDANCE Shashank Espinoza a 79 year old. History and Physical reviewed and is unchanged. . UNIVERSAL PROTOCOL / SAFETY CHECKLIST Procedure to be Performed: trus bx Sign In: A Moment of CARE was completed. Appropriate PPE (Personal Protective Equipment) worn by all providers involved with the procedure. Special equipment not required. Patient/Surrogate Stated/Verified: Patient name, Date of , Relevant allergies, and The intended procedure Time Out: Relevant labs, photos, and/or imaging studies have been reviewed. Intended patient and procedure match the source document(s) (e.g. consent, HANDP, associated studies [imaging, pathology]) match the intended patient and procedure. Consent obtained and matches the intended procedure. Yes. Correct side/site has been marked and visible. Medications required for this procedure are verified. Fire risk assessed and is not applicable. Implants: are not applicable. Sign Out: Specimens are all correctly labeled and sent. All instruments, equipment, possible retained foreign bodies are accounted for. Yes. The post-procedure plan of care has been communicated to the patient or surrogate. Fire risk assessment done Pre procedure dx: elevated psa Post procedure dx: same Informed Consent Discussed: Yes. Risks, benefits, alternatives and personnel discussed with patient who consents to proceed. Discussed RBAPC. Audible time out was performed. Is the patient having any pain? No 0 on a scale of 0 to 10 PSA (ng/mL) Date Value 06/18/2024 11.54 11/30/2020 4.28 PALPABLE NODULE: No Prostate biopsies taken from the site below using ultrasound guidance 1.) RIGHT BASE: 2 2.) RIGHT MID: 2 3.) RIGHT APEX: 2 4.) LEFT BASE: 2 5.) LEFT MID: 2 6.) LEFT APEX: 2 ALLERGIES Allergen Reactions Prilosec [Omeprazol* Other: See Comments GI upset MEDICATIONS: 10 ml 1% Plain Xylocaine giuliana prostatic nerve block given: Yes PROSTATE ULTRASOUND The prostate sonogram was obtained via transrectal approach. The gland is moderately enlarged, measuring 50cc. There is a homogeneous echo pattern throughout the prostate gland. Echogenic foci within the gland consistant with clacifications were noted. There is no focal lesion within the pereferal zone of the prostate gland. An Henley Jr, MD [facility] 09-15-2024 Procedure note PROSTATE BIOPSY WITH ULTRASOUND GUIDANCE Shashank M Premer a 79 year old. History and Physical reviewed and is unchanged. . UNIVERSAL PROTOCOL / SAFETY CHECKLIST Procedure to be Performed: trus bx Sign In: A Moment of CARE was completed. Appropriate PPE (Personal Protective Equipment) worn by all providers involved with the procedure. Special equipment not required. Patient/Surrogate Stated/Verified: Patient name, Date of , Relevant allergies, and The intended procedure Time Out: Relevant labs, photos, and/or imaging studies have been reviewed. Intended patient and procedure match the source document(s) (e.g. consent, H&P, associated studies [imaging, pathology]) match the intended patient and procedure. Consent obtained and matches the intended procedure. Yes. Correct side/site has been marked and visible. Medications required for this procedure are verified. Fire risk assessed and is not applicable. Implants: are not applicable. Sign Out: Specimens are all correctly labeled and sent. All instruments, equipment, possible retained foreign bodies are accounted for. Yes. The post-procedure plan of care has been communicated to the patient or surrogate. Fire risk assessment done Pre procedure dx: elevated psa Post procedure dx: same Informed Consent Discussed: Yes. Risks, benefits, alternatives and personnel discussed with patient who consents to proceed. Discussed RBAPC. Audible time out was performed. Is the patient having any pain? No 0 on a scale of 0 to 10 PSA (ng/mL) Date Value 06/18/2024 11.54 11/30/2020 4.28 PALPABLE NODULE: No Prostate biopsies taken from the site below using ultrasound guidance 1.) RIGHT BASE: 2 2.) RIGHT MID: 2 3.) RIGHT APEX: 2 4.) LEFT BASE: 2 5.) LEFT MID: 2 6.) LEFT APEX: 2 ALLERGIES Allergen Reactions Prilosec [Omeprazol* Other: See Comments GI upset MEDICATIONS: 10 ml 1% Plain Xylocaine giuliana prostatic nerve block given: Yes PROSTATE ULTRASOUND The prostate sonogram was obtained via transrectal approach. The gland is moderately enlarged, measuring 50cc. There is a homogeneous echo pattern throughout the prostate gland. Echogenic foci within the gland consistant with clacifications were noted. There is no focal lesion within the pereferal zone of the prostate gland. An Henley Jr, MD [facility] 09-15-2024 Procedure note PROSTATE BIOPSY WITH ULTRASOUND GUIDANCE Shashank Espinoza a 79 year old. History and Physical reviewed and is unchanged. . UNIVERSAL PROTOCOL / SAFETY CHECKLIST Procedure to be Performed: trus bx Sign In: A Moment of CARE was completed. Appropriate PPE (Personal Protective Equipment) worn by all providers involved with the procedure. Special equipment not required. Patient/Surrogate Stated/Verified: Patient name, Date of , Relevant allergies, and The intended procedure Time Out: Relevant labs, photos, and/or imaging studies have been reviewed. Intended patient and procedure match the source document(s) (e.g. consent, H&P, associated studies [imaging, pathology]) match the intended patient and procedure. Consent obtained and matches the intended procedure. Yes. Correct side/site has been marked and visible. Medications required for this procedure are verified. Fire risk assessed and is not applicable. Implants: are not applicable. Sign Out: Specimens are all correctly labeled and sent. All instruments, equipment, possible retained foreign bodies are accounted for. Yes. The post-procedure plan of care has been communicated to the patient or surrogate. Fire risk assessment done Pre procedure dx: elevated psa Post procedure dx: same Informed Consent Discussed: Yes. Risks, benefits, alternatives and personnel discussed with patient who consents to proceed. Discussed RBAPC. Audible time out was performed. Is the patient having any pain? No 0 on a scale of 0 to 10 PSA (ng/mL) Date Value 06/18/2024 11.54 11/30/2020 4.28 PALPABLE NODULE: No Prostate biopsies taken from the site below using ultrasound guidance 1.) RIGHT BASE: 2 2.) RIGHT MID: 2 3.) RIGHT APEX: 2 4.) LEFT BASE: 2 5.) LEFT MID: 2 6.) LEFT APEX: 2 ALLERGIES Allergen Reactions Prilosec [Omeprazol* Other: See Comments GI upset MEDICATIONS: 10 ml 1% Plain Xylocaine giuliana prostatic nerve block given: Yes PROSTATE ULTRASOUND The prostate sonogram was obtained via transrectal approach. The gland is moderately enlarged, measuring 50cc. There is a homogeneous echo pattern throughout the prostate gland. Echogenic foci within the gland consistant with clacifications were noted. There is no focal lesion within the pereferal zone of the prostate gland. An Henley Jr, MD documented in this encounter [facility] 08-11-2024 History of Present illness Narrative Images from the original note were not included. . [facility] [place] Note Patient name: Shashank Espinoza PCP: Yuval Dorantes MD CC: Follow-up chest CT HPI: Shashank Espinoza 79 year old male former [id number] smoker, quitting 2010 with PMH significant for CAD s/p stents, PAD, hypothyroidism, HLD, AAA, TIA, lung nodule, and emphysema. At initial visit with me in September 2022, he had an new RLL lung nodule on outside film compared to CT in 2015. Follow up CT 10/2023 showed resolution of the previous new nodule and stable bilateral 2-3 mm nodules. At [facility] with [facility], inhaled therapy changed to Stiolto Respimat with continued use of albuterol as needed. [facility] Since starting Stiolto Respimat, he has had improvement in his dry cough. He denies significant limiting dyspnea, wheezing, chest pain. He presents today for follow-up of his CT. CT of the chest shows dilated aortic aneurysm, stable bilateral 2 to 3 mm pulmonary nodules, emphysema and a area in the right lower lobe that appears to be a pleural plaque. Previous CT showed some focal pleural scarring in this area. DATA: Imaging / Diagnostic Studies: 12/2022: DATE OF EXAM: Jul 30 2024 11:20AM [facility] 0541 - CT CHEST WO IVCON / Comparison: CT chest 10/31/2023 RESULT: Limitations: None. Lines, tubes, and devices: None. Lung parenchyma and airways: Centrilobular emphysema. Linear scarring or atelectasis in bilateral posterior lower lobes. No consolidation. Stable scattered bilateral subcentimeter pulmonary nodules measuring up to 3 mm. No new suspicious pulmonary nodule. The central airways are patent. Pleural space: No pleural effusion. No pleural thickening. Lower neck, lymph nodes, and mediastinum: The imaged thyroid gland is normal. No lymphadenopathy in the supraclavicular, axillary, mediastinal, or hilar regions. Heart, pericardium, and thoracic vessels: The thoracic aorta and main pulmonary artery are normal in caliber. The cardiac chambers are normal in size. Coronary artery atherosclerotic calcifications are noted, although the study is not optimized for coronary assessment. No pericardial effusion or thickening. Bones and soft tissues: No destructive bone lesion. Degenerative disease of the thoracic spine. Chest wall is unremarkable. Upper abdomen: No acute abnormality in the imaged upper abdomen. Multiple hepatic cysts. Localizer images: No additional findings. IMPRESSION: 1. Stable subcentimeter pulmonary nodules measuring up to 3 mm. No new pulmonary nodules. 2. Centrilobular emphysema 3. 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 MRA 07/07/11 Anxiety state, unspecified Ascending aorta dilatation (HCC) 10/14/2015 CT Chest 4.5X3.96cm BENIGN NEOPLASM LG BOWEL 05/08/2005 colon polyps Benign prostatic hyperplasia with urinary retention CAD (coronary artery disease) 08/22/2010 s/p drug eluting stent placement (2) Carotid artery occlusion, right MRI 07/04/11; MRA 07/07/11 Centrilobular emphysema (HCC) 09/25/2022 Depressive disorder, not elsewhere classified Disorder of bone and cartilage, unspecified Elevated prostate specific antigen (PSA) Essential hypertension, benign GASTROINTEST HEMORR NOS 05/08/2005 Hearing loss in left ear Dr. 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 Except take 2 on Sunday ([facility]) clonazePAM (KLONOPIN) 1 mg tablet Take 1 tablet by mouth daily at bedtime. May also take 1 tablet once daily as needed. Do all this for 90 days. Patient should start on July 18, 2024. tiotropium-olodaterol (STIOLTO RESPIMAT) 2.5-2.5 mcg/actuation inhaler Inhale 2 Puffs as instructed once daily. albuterol HFA (PROVENTIL HFA, VENTOLIN HFA) 90 mcg/actuation inhaler Inhale 2 Puffs as instructed every 4 hours as needed. ipratropium bromide (ATROVENT) 42 mcg (0.06 %) nasal spray Use 2 Sprays in the nose four times daily as needed. fluticasone (FLONASE) 50 mcg/actuation nasal spray Use 2 Sprays in each nostril once daily as needed. Rinse mouth after use. traZODone (DESYREL) 100 mg tablet Take 1-2 tablets by mouth daily at bedtime. (Get through [facility] now) psyllium husk (KONSYL SUGAR-FREE) 6 gram/6 gram powd Take 1 Scoop by mouth once daily as needed. nitroglycerin sublingual (NITROQUICK) 0.4 mg SL tablet Dissolve 1 tablet under the tongue as needed. FOR CHEST PAIN. IF NO RELIEF CALL 911 docusate sodium (COLACE) 100 mg capsule Take 1 capsule by mouth twice daily as needed for Constipation. atorvastatin (LIPITOR) 40 mg tablet Take 1 tablet by mouth once daily. For cholesterol. ([facility]) famotidine (PEPCID) 40 mg tablet Take 1 tablet by mouth twice daily. amLODIPine (NORVASC) 10 mg tablet Take 1 tablet by mouth once daily. ([place] Mason senior mechanical engineer increased dose--Dr. Cruz) losartan (COZAAR) 100 mg tablet Take 1 tablet by mouth once daily. Aspirin 81 mg ORAL Tab Take 81 mg by mouth once daily. Social History Tobacco Use Smoking status: Former Current packs/day: 0.00 Average packs/day: 1 pack/day for 23.0 years (23.0 ttl pk-yrs) Types: Cigarettes Start date: 08/22/1987 Quit date: 08/22/2010 Years since quittin.9 Smokeless tobacco: Never Tobacco comments: Started at age 42 Vaping Use Vaping status: Never Used Substance Use Topics Alcohol use: Not Currently Drug use: Not Currently Types: Marijuana Comment: Stopped 2010 FAMILY HISTORY Problem Relation Age of Onset Emphysema Father Diabetes Father heart Heart Mother mi Hypertension Mother stomach cancer other (physical problems from being in plane crash) Sister PAST SURGICAL HISTORY Procedure Laterality Date ADENOIDECTOMY PRIMARY <AGE 14 Adenoidectomy COLONOSCOPY FLX DX W/COLLJ SPEC WHEN PFRMD 09/1994, 12/2001 Colonoscopy COLONOSCOPY FLX DX W/COLLJ SPEC WHEN PFRMD 10/10/2010 Colonoscopy COLONOSCOPY FLX DX W/COLLJ SPEC WHEN PFRMD 10/03/2016 normal 10 year follow up ESOPHAGOGASTRODUODENOSCOPY TRANSORAL DIAGNOSTIC 10/10/2010 EGD LEFT HEART CATH,PERCUTANEOUS 08/23/2010 Cardiac cath, L heart [facility] PAST SURGICAL HISTORY OF 12/08/2020 Examination under anesthesia, anoscopy, biopsy SIGMOIDOSCOPY FLX DX W/COLLJ SPEC BR/WA IF PFRMD 09/11/2012 Sigmoidoscopy, flexible TONSILLECTOMY PRIMARY/SECONDARY <AGE 14 Tonsillectomy PMH, Social history, family history and surgical history reviewed and updated in EMR REVIEW OF SYSTEMS: CONSTITUTIONAL: No fevers, chills, nightsweats, unintended weight loss HEENT: Denies nasal congestion/sinus symptoms, allergy problems. CARDIOVASCULAR: No chest pain, dyspnea, palpitations, edema. PULM: See HPI : BPH NEURO: No balance problems, peripheral weakness/paresthesias or numbness of concern. PSY: No concerns regarding depression, anxiety INTEGUMENTARY: Easy bruising PHYSICAL EXAMINATION: BP 98/64 Pulse 68 Resp 12 Wt 167 lb (75.8kg) SpO2 96% General Appearance: Age-appropriate male, NAD. Skin: Skin color, texture, turgor normal, no suspicious rashes or lesions. Upper extremity ecchymoses Head: Normocephalic, no masses, lesions, tenderness or abnormalities. Oropharynx: Poor dentition, no oral lesions. Neck: No masses or adenopathy. Lungs: Not labored, normal to percussion, no wheezes or crackles. Heart: Regular rate and rhythm, no murmurs or gallops. Extremities: No edema or clubbing. Assessment/Plan: 1. Lung nodules -Stable 2 to 3 mm pulmonary nodules not requiring follow-up 2. Pleural plaque -Area may represent increased focal scarring. Will reassess CT in 1 year 3. Centrilobular emphysema -Continue abstinence from tobacco -Continue Stiolto Respimat Carla Ulrich MD [facility] [place] documented in this encounter [facility] 08-11-2024 Note HNO ID: [id number] Author: CARLA ULRICH MD Service: ? Author Type: Physician Type: Progress Notes Filed: 08/11/2024 14:17 Note Text: . [facility] [place] Note Patient name: Shashank Espinoza PCP: Yuval Dorantes MD CC: Follow-up chest CT HPI: Shashank Espinoza 79 year old male former [id number] smoker, quitting 2010 with PMH significant for CAD s/p stents, PAD, hypothyroidism, HLD, AAA, TIA, lung nodule, and emphysema. At initial visit with me in September 2022, he had an new RLL lung nodule on outside film compared to CT in 2015. Follow up CT 10/2023 showed resolution of the previous new nodule and stable bilateral 2-3 mm nodules. At [facility] with [facility], inhaled therapy changed to Stiolto Respimat with continued use of albuterol as needed. [facility]. Since starting Stiolto Respimat, he has had improvement in his dry cough. He denies significant limiting dyspnea, wheezing, chest pain. He presents today for follow-up of his CT. CT of the chest shows dilated aortic aneurysm, stable bilateral 2 to 3 mm pulmonary nodules, emphysema and a area in the right lower lobe that appears to be a pleural plaque. Previous CT showed some focal pleural scarring in this area. DATA: Imaging / Diagnostic Studies: 12/2022: DATE OF EXAM: Jul 30 2024 11:20AM [facility] 0541 - CT CHEST WO IVCON / Comparison: CT chest 10/31/2023 RESULT: Limitations: None. Lines, tubes, and devices: None. Lung parenchyma and airways: Centrilobular emphysema. Linear scarring or atelectasis in bilateral posterior lower lobes. No consolidation. Stable scattered bilateral subcentimeter pulmonary nodules measuring up to 3 mm. No new suspicious pulmonary nodule. The central airways are patent. Pleural space: No pleural effusion. No pleural thickening. Lower neck, lymph nodes, and mediastinum: The imaged thyroid gland is normal. No lymphadenopathy in the supraclavicular, axillary, mediastinal, or hilar regions. Heart, pericardium, and thoracic vessels: The thoracic aorta and main pulmonary artery are normal in caliber. The cardiac chambers are normal in size. Coronary artery atherosclerotic calcifications are noted, although the study is not optimized for coronary assessment. No pericardial effusion or thickening. Bones and soft tissues: No destructive bone lesion. Degenerative disease of the thoracic spine. Chest wall is unremarkable. Upper abdomen: No acute abnormality in the imaged upper abdomen. Multiple hepatic cysts. Localizer images: No additional findings. IMPRESSION: 1. Stable subcentimeter pulmonary nodules measuring up to 3 mm. No new pulmonary nodules. 2. Centrilobular emphysema 3. 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 MRA 07/07/11 Anxiety state, unspecified Ascending aorta dilatation (HCC) 10/14/2015 CT Chest 4.5X3.96cm BENIGN NEOPLASM LG BOWEL 05/08/2005 colon polyps Benign prostatic hyperplasia with urinary retention CAD (coronary artery disease) 08/22/2010 s/p drug eluting stent placement (2) Carotid artery occlusion, right MRI 07/04/11; MRA 07/07/11 Centrilobular emphysema (HCC) 09/25/2022 Depressive disorder, not elsewhere classified Disorder of bone and cartilage, unspecified Elevated prostate specific antigen (PSA) Essential hypertension, benign GASTROINTEST HEMORR NOS 05/08/2005 Hearing loss in left ear Dr. 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 Except take 2 on Sunday ([facility]) clonazePAM (KLONOPIN) 1 mg tablet Take 1 tablet by mouth daily at bedtime. May also take 1 tablet once daily as needed. Do all this for 90 days. Patient should start on July 18, 2024. tiotropium-olodaterol (STIOLTO RESPIMAT) 2.5-2.5 mcg/actuation inhaler Inhale 2 Puffs as instructed once daily. albuterol HFA (PROVENTIL HFA, VENTOLIN HFA) 90 mcg/actuation inhaler Inhale 2 Puffs as instructed every 4 hours as needed. ipratropium bromide (ATROVENT) 42 mcg (0.06 %) nasal spray Use 2 Sprays in the nose four times daily as needed. fluticasone (FLONASE) 50 mcg/actuation nasal spray Use 2 Sprays in each nostril once daily as needed. Rinse mouth after use. traZODone (DESYREL) 100 mg tablet Take 1-2 tablets by mouth d (more content not included)... [facility] 07-30-2024 Instructions Yuval Dorantes MD - 07/30/2024 4:10 PM EST - Continue drinking plenty of fluids to stay hydrated. - Avoid close contact with others for a total of 5 days from the onset of your symptoms to prevent spreading the virus. - Follow up with Dr. Ulrich on the for a review of your recent CT scan. - Attend your prostate biopsy on September 15 at [facility] with Dr. Henley. - Receive your RSV vaccine [facility] - Check with the [facility] to see if you are due for a Tdap vaccine and get it if needed. - Continue taking your current medications as prescribed by the [facility]. - Monitor your blood pressure and report any significant changes. - Next appointments with your primary care provider are scheduled for October, February, and June. documented in this encounter [facility] 07-30-2024 Note HNO ID: [id number] Author: YUVAL DORANTES MD Service: ? Author Type: Physician Type: Progress Notes Filed: 07/30/2024 16:16 Note Text: This note was created using NoteWriter. Subjective Shashank Espinoza is a 79 year old male. Patient presents with: ED Follow-up: [facility] ED follow up 07/21/24 SUBJECTIVE: Shashank Espinoza is a 79 year old year old gentleman here today for ER follow up appointment for review of medical conditions. Shashank Espinoza is a 79-year-old male with a history of COPD, presenting for follow-up after an ED visit for norovirus. Shashank was seen in the ED for norovirus, presenting with diarrhea and low blood pressure. He denies nausea or emesis. He was treated with IV fluids and discharged home with instructions to maintain hydration and avoid contact with others for 5 days. He was able to maintain hydration at home and did not require further medical attention. He denies any current issues with hydration or blood pressure. Shashank has a history of COPD and recently underwent a CT scan of the chest without IV contrast on July 30 for evaluation. 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 Ulrich, on the to discuss the results. He also has a prostate biopsy scheduled with Dr. Henley on September 15 at [facility] ([facility] Sh[facility] [facility] through [facility], except for clonazepam, which he obtains elsewhere due to mailing restrictions on controlled substances. He is scheduled for his [facility] on [facility], where he will receive the RSV vaccine. He inquires about the timing of the vaccine in relation to his recent illness. We reviewed the last June 2024 appointment progress note that had some errors: Shashank does not have any issues with memory regarding forgetting family members' identities. 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 MRA 07/07/11 Anxiety state, unspecified Ascending aorta dilatation (HCC) 10/14/2015 CT Chest 4.5X3.96cm BENIGN NEOPLASM LG BOWEL 05/08/2005 colon polyps Benign prostatic hyperplasia with urinary retention CAD (coronary artery disease) 08/22/2010 s/p drug eluting stent placement (2) Carotid artery occlusion, right MRI 07/04/11; MRA 07/07/11 Centrilobular emphysema (HCC) 09/25/2022 Depressive disorder, not elsewhere classified Disorder of bone and cartilage, unspecified Elevated prostate specific antigen (PSA) Essential hypertension, benign GASTROINTEST HEMORR NOS 05/08/2005 Hearing loss in left ear Dr. 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 Except take 2 on Sunday ([facility]) clonazePAM (KLONOPIN) 1 mg tablet Take 1 tablet by mouth daily at bedtime. May also take 1 tablet once daily as needed. Do all this for 90 days. Patient should start on July 18, 2024. tiotropium-olodaterol (STIOLTO RESPIMAT) 2.5-2.5 mcg/actuation inhaler Inhale 2 Puffs as instructed once daily. albuterol HFA (PROVENTIL HFA, VENTOLIN HFA) 90 mcg/actuation inhaler Inhale 2 Puffs as instructed every 4 hours as needed. ipratropium bromide (ATROVENT) 42 mcg (0.06 %) nasal spray Use 2 Sprays in the nose four times daily as needed. fluticasone (FLONASE) 50 mcg/actuation nasal spray Use 2 Sprays in each nostril once daily as needed. Rinse mouth after use. traZODone (DESYREL) 100 mg tablet Take 1-2 tablets by mouth daily at bedtime. ([facility]) psyllium husk (KONSYL SUGAR-FREE) 6 gram/6 gram powd Take 1 Scoop by mouth once daily as needed. nitroglycerin sublingual (NITROQUICK) 0.4 mg SL tablet Dissolve 1 tablet under the tongue as needed. FOR CHEST PAIN. IF NO RELIEF CALL 911 docusate sodium (COLACE) 100 mg capsule Take 1 capsule by mouth twice daily as needed for Constipation. atorvastatin (LIPITOR) 40 mg tablet Take 1 tablet by mouth once daily. For cholesterol. (From [facility]) famotidine (PEPCID) 40 mg tablet Take 1 tablet by mouth twice daily. amLODIPine (NORVASC) 10 mg tablet Take 1 tablet by mouth once daily. 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 Cruz) losartan (COZAAR) 100 mg tablet Take 1 tablet by mouth once daily. Aspirin 81 mg ORAL Tab Take 81 mg by mouth once daily. azithromycin (ZITHROMAX) 500 mg tablet Take 500 mg by mouth once daily. (Patient not taking: (more content not included)... [facility] 07-30-2024 History of Present illness Narrative This note was created using English Helperter. Subjective Shashank Espinoza is a 79 year old male. Patient presents with: ED Follow-up: [facility] ED follow up 07/21/24 SUBJECTIVE: Shashank Espinoza is a 79 year old year old gentleman here today for ER follow up appointment for review of medical conditions. Shashank Espinoza is a 79-year-old male with a history of COPD, presenting for follow-up after an ED visit for norovirus. Shashank was seen in the ED for norovirus, presenting with diarrhea and low blood pressure. He denies nausea or emesis. He was treated with IV fluids and discharged home with instructions to maintain hydration and avoid contact with others for 5 days. He was able to maintain hydration at home and did not require further medical attention. He denies any current issues with hydration or blood pressure. Shashank has a history of COPD and recently underwent a CT scan of the chest without IV contrast on July 30 for evaluation. 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 Ulrich, on the to discuss the results. He also has a prostate biopsy scheduled with Dr. Henley on September 15 at [facility] ([facility]). Sh[facility] [facility] through [facility], except for clonazepam, which he obtains elsewhere due to mailing restrictions on controlled substances. He is scheduled for his yearly check-up at the [facility] on [facility] 19, where he will receive the RSV vaccine. He inquires about the timing of the vaccine in relation to his recent illness. We reviewed the last June 2024 appointment progress note that had some errors: Shashank does not have any issues with memory regarding forgetting family members' identities. 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 MRA 07/07/11 Anxiety state, unspecified Ascending aorta dilatation (HCC) 10/14/2015 CT Chest 4.5X3.96cm BENIGN NEOPLASM LG BOWEL 05/08/2005 colon polyps Benign prostatic hyperplasia with urinary retention CAD (coronary artery disease) 08/22/2010 s/p drug eluting stent placement (2) Carotid artery occlusion, right MRI 07/04/11; MRA 07/07/11 Centrilobular emphysema (HCC) 09/25/2022 Depressive disorder, not elsewhere classified Disorder of bone and cartilage, unspecified Elevated prostate specific antigen (PSA) Essential hypertension, benign GASTROINTEST HEMORR NOS 05/08/2005 Hearing loss in left ear Dr. 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 Except take 2 on Sunday ([facility]) clonazePAM (KLONOPIN) 1 mg tablet Take 1 tablet by mouth daily at bedtime. May also take 1 tablet once daily as needed. Do all this for 90 days. Patient should start on July 18, 2024. tiotropium-olodaterol (STIOLTO RESPIMAT) 2.5-2.5 mcg/actuation inhaler Inhale 2 Puffs as instructed once daily. albuterol HFA (PROVENTIL HFA, VENTOLIN HFA) 90 mcg/actuation inhaler Inhale 2 Puffs as instructed every 4 hours as needed. ipratropium bromide (ATROVENT) 42 mcg (0.06 %) nasal spray Use 2 Sprays in the nose four times daily as needed. fluticasone (FLONASE) 50 mcg/actuation nasal spray Use 2 Sprays in each nostril once daily as needed. Rinse mouth after use. traZODone (DESYREL) 100 mg tablet Take 1-2 tablets by mouth daily at bedtime. ([facility]) psyllium husk (KONSYL SUGAR-FREE) 6 gram/6 gram powd Take 1 Scoop by mouth once daily as needed. nitroglycerin sublingual (NITROQUICK) 0.4 mg SL tablet Dissolve 1 tablet under the tongue as needed. FOR CHEST PAIN. IF NO RELIEF CALL 911 docusate sodium (COLACE) 100 mg capsule Take 1 capsule by mouth twice daily as needed for Constipation. atorvastatin (LIPITOR) 40 mg tablet Take 1 tablet by mouth once daily. [facility] famotidine (PEPCID) 40 mg tablet Take 1 tablet by mouth twice daily. amLODIPine (NORVASC) 10 mg tablet Take 1 tablet by mouth once daily. ([place] [employer] senior mechanical engineer increased dose--Dr. Cruz) losartan (COZAAR) 100 mg tablet Take 1 tablet by mouth once daily. Aspirin 81 mg ORAL Tab Take 81 mg by mouth once daily. azithromycin (ZITHROMAX) 500 mg tablet Take 500 mg by mouth once daily. (Patient not taking: Reported on 04/16/2024) No current facility-administered medications for this visit. Review of Systems Objective BP 130/78 Pulse 69 Temp 36.7 C (98.1 F) Resp 16 Wt 75 kg (165 lb 5.5 oz) SpO2 97% BMI (P) 24.81 kg/m Last 5 Encounter Wt Readings: Date: Wt: 07/30/2024 75 kg (165 lb 5.5 oz) 06/24/2024 74.8 kg (164 lb 12.8 oz) 06/18/2024 74 kg (163 lb 2.3 oz) 04/16/2024 73.9 kg (163 lb) 03/04/2024 74.4 kg (164 lb) No waist measurement recorded Estimated body mass index is 24.81 kg/m (pended) as calculated from the following: Height as of 03/04/24: (P) 173.9 cm (5' 8.45). Weight as of this encounter: 75 kg (165 lb 5.5 oz). Last 5 Encounter BP Readings: Date: BP: 07/30/2024 130/78 06/24/2024 128/78 06/18/2024 118/60 04/16/2024 102/64 01/31/2024 134/66 Physical Exam Vitals reviewed. Constitutional: Appearance: Normal appearance. Eyes: Conjunctiva/sclera: Conjunctivae normal. Cardiovascular: Rate and Rhythm: Normal rate and regular rhythm. Heart sounds: Normal heart sounds. Pulmonary: Effort: Pulmonary effort is normal. Breath sounds: Normal breath sounds. Musculoskeletal: Right lower leg: No edema. Left lower leg: No edema. Skin: General: Skin is warm and dry. Neurological: General: No focal deficit present. Mental Status: He is alert and oriented to person, place, and time. Psychiatric: Mood and Affect: Mood normal. Behavior: Behavior normal. Thought Content: Thought content normal. Judgment: Judgment normal. Assessment and Plan # Viral gastroenteritis (A08.4) - Recent ER visit for severe diarrhea; no nausea or vomiting reported. - ER labs showed mild dehydration with sodium at 109 mEq/L; BUN, creatinine, GFR, glucose, calcium, and liver function tests were normal. - Patient received IV fluids in the ER and was advised to maintain hydration and avoid contact with others for 5 days. - Symptoms have resolved; no further treatment necessary. # Essential (primary) hypertension (I10) - Blood pressure readings stable, ranging from 110 to 120 mmHg. - Continue current antihypertensive regimen as managed by the [facility]. # Centrilobular emphysema (HCC) (J43.2) - Recent CT scan of the chest performed on July 30; results pending. - Follow-up appointment with charging board operator Dr. Ulrich scheduled for September [address] findings. - Patient to receive RSV vaccine at the [facility] on August 19. Yuval Dorantes MD documented in this encounter [facility] 07-30-2024 History of Present illness Narrative Radiology Service Progress Note PATIENT NAME: Shashank Espinoza DATE OF SERVICE: July 30, 2024 TIME: 11:52 AM PATIENT IDENTITY VERIFICATION COMPLETED USING TWO (2) IDENTIFIERS: Name and Date of confirmed by patient verbally. FALL SCREENING: Has the patient had 2 falls in the last year or 1 fall with injury or currently using an Ambulatory Assistive Device (Walker, Cane, Wheelchair, Crutches, etc.)? No PATIENT GENDER DATA: Assigned male at PATIENT RELEVANT IMPLANT DATA REVIEWED: Yes PATIENT PRESENTS WITH AN IMPLANTABLE OR ATTACHED SUPERVISOR LABORATORY: No RADIOLOGY DEPARTMENT: CT; Exam(s) Completed: Chest PERIPHERAL IV DATA: Not applicable SIGNED BY: RT Angelo(iNi) July 30, 2024 11:52 AM documented in this encounter [facility] 07-30-2024 Note HNO ID: [id number] Author: LEELEE DURAND RT(R) Service: ? Author Type: E Business Specialist Type: Progress Notes Filed: 07/30/2024 11:52 Note Text: Radiology Service Progress Note PATIENT NAME: Shashank Espinoza DATE OF SERVICE: July 30, 2024 TIME: 11:52 AM PATIENT IDENTITY VERIFICATION COMPLETED USING TWO (2) IDENTIFIERS: Name and Date of confirmed by patient verbally. FALL SCREENING: Has the patient had 2 falls in the last year or 1 fall with injury or currently using an Ambulatory Assistive Device (Walker, Cane, Wheelchair, Crutches, etc.)? No PATIENT GENDER DATA: Assigned male at PATIENT RELEVANT IMPLANT DATA REVIEWED: Yes PATIENT PRESENTS WITH AN IMPLANTABLE OR ATTACHED SUPERVISOR LABORATORY: No RADIOLOGY DEPARTMENT: CT; Exam(s) Completed: Chest PERIPHERAL IV DATA: Not applicable SIGNED BY: RT Angelo(Nii) July 30, 2024 11:52 AM [facility] 07-21-2024 Telephone encounter Note Patient call in for diarrhea since or Sunday. Patient states that he has been feeling fatigued. Patient has had a really dry throat and mouth. Nurse Triage assessment completed with protocol recommending for disposition of Go to ED now for possible dehydration. Patient voiced understanding. Care advice reviewed with patient, patient stated understanding. Reason for Disposition [1] Drinking very little AND [2] dehydration suspected (e.g., no urine > 12 hours, very dry mouth, very lightheaded) Answer Assessment - Initial Assessment Questions 1. DIARRHEA SEVERITY: Patient states that he has had 3-4 extra stools in the past 24 hours. 2. ONSET: Began on or Sunday Afternoon 3. STOOL DESCRIPTION: Watery; Brown; Has seen Mucous in the stool, but denies blood. 4. VOMITING: Denies Vomiting 5. ABDOMEN PAIN: Occasional gets abdominal cramping. Pain is not bad and it does not happen every time. 6. ABDOMEN PAIN SEVERITY: Rates the pain at its worse 4 out of 10. Patient states that pain is not that bad. 7. ORAL INTAKE: Has been drinking 2 bottles of water during the day. 8. HYDRATION: Patient has terrible dry mouth and throat. Denies dizziness and weakness. 9. EXPOSURE: Has had family members that have had the diarrhea. Patient states that daughter and grandson have had it for 3 days but then it tapers off. Patient states that his diarrhea has tapered off but last night it had woke him up. Patient had to make a run to the toilet. 10. ANTIBIOTIC USE: Denies 11. OTHER SYMPTOMS: Patient states that he feels flush, but nothing major. Patient states that he feels fatigued Protocols used: [id number] [facility] 07-21-2024 Miscellaneous Notes Patient call in for diarrhea since or Sunday. Patient states that he has been feeling fatigued. Patient has had a really dry throat and mouth. Nurse Triage assessment completed with protocol recommending for disposition of Go to ED now for possible dehydration. Patient voiced understanding. Care advice reviewed with patient, patient stated understanding. Reason for Disposition [1] Drinking very little AND [2] dehydration suspected (e.g., no urine > 12 hours, very dry mouth, very lightheaded) Answer Assessment - Initial Assessment Questions 1. DIARRHEA SEVERITY: Patient states that he has had 3-4 extra stools in the past 24 hours. 2. ONSET: Began on or Sunday Afternoon 3. STOOL DESCRIPTION: Watery; Brown; Has seen Mucous in the stool, but denies blood. 4. VOMITING: Denies Vomiting 5. ABDOMEN PAIN: Occasional gets abdominal cramping. Pain is not bad and it does not happen every time. 6. ABDOMEN PAIN SEVERITY: Rates the pain at its worse 4 out of 10. Patient states that pain is not that bad. 7. ORAL INTAKE: Has been drinking 2 bottles of water during the day. 8. HYDRATION: Patient has terrible dry mouth and throat. Denies dizziness and weakness. 9. EXPOSURE: Has had family members that have had the diarrhea. Patient states that daughter and grandson have had it for 3 days but then it tapers off. Patient states that his diarrhea has tapered off but last night it had woke him up. Patient had to make a run to the toilet. 10. ANTIBIOTIC USE: Denies 11. OTHER SYMPTOMS: Patient states that he feels flush, but nothing major. Patient states that he feels fatigued Protocols used: [id number] documented in this encounter [facility] 07-17-2024 Telephone encounter Note Pt came in wondering if his RSV shot would cause problems with his PSA or his upcoming biopsy? Please advise and contact patient. [facility] 07-17-2024 Miscellaneous Notes Pt came in wondering if his RSV shot would cause problems with his PSA or his upcoming biopsy? Please advise and contact patient. documented in this encounter [facility] 06-24-2024 Telephone encounter Note Left pt vm re: needs scheduled for prostate bx. Ref by Denilson Meadows for elev PSA. Alicia [facility] 06-24-2024 Miscellaneous Notes Left pt vm re: needs scheduled for prostate bx. Ref by Denilson Meadows for elev PSA. Alicia documented in this encounter [facility] 06-24-2024 Note HNO ID: [id number] Author: PORSHA MEADOWS PA-C Service: ? Author Type: Physician Agronomy Instructor Type: Progress Notes Filed: 07/28/2024 19:48 Note Text: [facility] EST PATIENT CLINIC NOTE SERVICE DATE: June 24, 2024 NAME: Shashank Espinoza CHIEF COMPLAINT: Elevated PSA HISTORY OF PRESENT ILLNESS: Shashank Espinoza is a 79 year old male an established patient following up for Elevated PSA The patient reports he and his daughter are here to discuss recent elevated PSA and IsoPSA Review of the tests in detail and recommendation of prostate biopsy and will get this set up at [place] In the interm his PSA has increased, PSA 11.54 IsoPSA 13.4 % TPSA Results 8.760 LUTS: None currently LABS: PSA (ng/mL) Date Value 06/18/2024 11.54 12/12/2023 8.32 06/27/2022 5.84 11/30/2020 4.28 06/08/2020 5.0 02/08/2016 2.32 MEDICATIONS: levothyroxine (SYNTHROID) 50 mcg tablet Take 1 tablet by mouth once daily. Except take 2 on Sunday [facility]) [START ON 07/18/2024] clonazePAM (KLONOPIN) 1 mg tablet Take 1 tablet by mouth daily at bedtime. May also take 1 tablet once daily as needed. Do all this for 90 days. Patient should start on July 18, 2024. tiotropium-olodaterol (STIOLTO RESPIMAT) 2.5-2.5 mcg/actuation inhaler Inhale 2 Puffs as instructed once daily. albuterol HFA (PROVENTIL HFA, VENTOLIN HFA) 90 mcg/actuation inhaler Inhale 2 Puffs as instructed every 4 hours as needed. ipratropium bromide (ATROVENT) 42 mcg (0.06 %) nasal spray Use 2 Sprays in the nose four times daily as needed. fluticasone (FLONASE) 50 mcg/actuation nasal spray Use 2 Sprays in each nostril once daily as needed. Rinse mouth after use. traZODone (DESYREL) 100 mg tablet Take 1-2 tablets by mouth daily at bedtime. ([facility]) psyllium husk (KONSYL SUGAR-FREE) 6 gram/6 gram powd Take 1 Scoop by mouth once daily as needed. nitroglycerin sublingual (NITROQUICK) 0.4 mg SL tablet Dissolve 1 tablet under the tongue as needed. FOR CHEST PAIN. IF NO RELIEF CALL 911 docusate sodium (COLACE) 100 mg capsule Take 1 capsule by mouth twice daily as needed for Constipation. atorvastatin (LIPITOR) 40 mg tablet Take 1 tablet by mouth once daily. For cholesterol. ([facility]) famotidine (PEPCID) 40 mg tablet Take 1 tablet by mouth twice daily. amLODIPine (NORVASC) 10 mg tablet Take 1 tablet by mouth once daily. ([place] [employer] senior mechanical engineer increased dose--Dr. Cruz) losartan (COZAAR) 100 mg tablet Take 1 tablet by mouth once daily. Aspirin 81 mg ORAL Tab Take 81 mg by mouth once daily. azithromycin (ZITHROMAX) 500 mg tablet Take 500 mg by mouth once daily. 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 MRA 07/07/11 Anxiety state, unspecified Ascending aorta dilatation (HCC) 10/14/2015 CT Chest 4.5X3.96cm BENIGN NEOPLASM LG BOWEL 05/08/2005 colon polyps Benign prostatic hyperplasia with urinary retention CAD (coronary artery disease) 08/22/2010 s/p drug eluting stent placement (2) Carotid artery occlusion, right MRI 07/04/11; MRA 07/07/11 Centrilobular emphysema (HCC) 09/25/2022 Depressive disorder, not elsewhere classified Disorder of bone and cartilage, unspecified Elevated prostate specific antigen (PSA) Essential hypertension, benign GASTROINTEST HEMORR NOS 05/08/2005 Hearing loss in left ear Dr. 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 PHYSICAL EXAMINATION: Blood pressure 128/78, pulse 67, weight 74.8 kg (164 lb 12.8 oz), SpO2 95%. GENERAL: WNL nutrition, no deformities, healthy appearing PROBLEM LIST REVIEW: Yes LABS: Results for orders placed or performed in visit on 06/18/24 PSA/PROSTSPECAG DIAG Result Value Ref Range PSA 11.54 (H) <2.60 ng/mL ASSESSMENT/PLAN: 1. Elevated prostate specific antigen (PSA) - ICD9: 790.93, ICD10: R97.20 > IsoPSA -13.4% > PSA - 8.32 > Most recent PSA is 11.54 - PROSTATE BIOPSY GUKI - orders placed 1 New Condition: with unknown prognosis; with monitoring with labs and follow-up visits 1 Testing Recommendations: Ordered today; biopsy > Message sent for scheduling Prostate Biopsy at [place] ENRIQUE Richard, EDWIGE, PA-C [facility] 06-24-2024 History of Present illness Narrative Images from the original note were not included. [facility] EST PATIENT CLINIC NOTE SERVICE DATE: June 24, 2024 NAME: Shashank Espinoza CHIEF COMPLAINT: Elevated PSA HISTORY OF PRESENT ILLNESS: Shashank Espinoza is a 79 year old male an established patient following up for Elevated PSA The patient reports he and his daughter are here to discuss recent elevated PSA and IsoPSA Review of the tests in detail and recommendation of prostate biopsy and will get this set up at [place] In the interm his PSA has increased, PSA 11.54 IsoPSA 13.4 % TPSA Results 8.760 LUTS: None currently LABS: PSA (ng/mL) Date Value 06/18/2024 11.54 12/12/2023 8.32 06/27/2022 5.84 11/30/2020 4.28 06/08/2020 5.0 02/08/2016 2.32 MEDICATIONS: levothyroxine (SYNTHROID) 50 mcg tablet Take 1 tablet by mouth once daily. Except take 2 on Sunday ([facility]) [START ON 07/18/2024] clonazePAM (KLONOPIN) 1 mg tablet Take 1 tablet by mouth daily at bedtime. May also take 1 tablet once daily as needed. Do all this for 90 days. Patient should start on July 18, 2024. tiotropium-olodaterol (STIOLTO RESPIMAT) 2.5-2.5 mcg/actuation inhaler Inhale 2 Puffs as instructed once daily. albuterol HFA (PROVENTIL HFA, VENTOLIN HFA) 90 mcg/actuation inhaler Inhale 2 Puffs as instructed every 4 hours as needed. ipratropium bromide (ATROVENT) 42 mcg (0.06 %) nasal spray Use 2 Sprays in the nose four times daily as needed. fluticasone (FLONASE) 50 mcg/actuation nasal spray Use 2 Sprays in each nostril once daily as needed. Rinse mouth after use. traZODone (DESYREL) 100 mg tablet Take 1-2 tablets by mouth daily at bedtime. (Get through [facility] now) psyllium husk (KONSYL SUGAR-FREE) 6 gram/6 gram powd Take 1 Scoop by mouth once daily as needed. nitroglycerin sublingual (NITROQUICK) 0.4 mg SL tablet Dissolve 1 tablet under the tongue as needed. FOR CHEST PAIN. IF NO RELIEF CALL 911 docusate sodium (COLACE) 100 mg capsule Take 1 capsule by mouth twice daily as needed for Constipation. atorvastatin (LIPITOR) 40 mg tablet Take 1 tablet by mouth once daily. For cholesterol. (From [facility]) famotidine (PEPCID) 40 mg tablet Take 1 tablet by mouth twice daily. amLODIPine (NORVASC) 10 mg tablet Take 1 tablet by mouth once daily. 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 Cruz) losartan (COZAAR) 100 mg tablet Take 1 tablet by mouth once daily. Aspirin 81 mg ORAL Tab Take 81 mg by mouth once daily. azithromycin (ZITHROMAX) 500 mg tablet Take 500 mg by mouth once daily. 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 MRA 07/07/11 Anxiety state, unspecified Ascending aorta dilatation (HCC) 10/14/2015 CT Chest 4.5X3.96cm BENIGN NEOPLASM LG BOWEL 05/08/2005 colon polyps Benign prostatic hyperplasia with urinary retention CAD (coronary artery disease) 08/22/2010 s/p drug eluting stent placement (2) Carotid artery occlusion, right MRI 07/04/11; MRA 07/07/11 Centrilobular emphysema (HCC) 09/25/2022 Depressive disorder, not elsewhere classified Disorder of bone and cartilage, unspecified Elevated prostate specific antigen (PSA) Essential hypertension, benign GASTROINTEST HEMORR NOS 05/08/2005 Hearing loss in left ear Dr. 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 PHYSICAL EXAMINATION: Blood pressure 128/78, pulse 67, weight 74.8 kg (164 lb 12.8 oz), SpO2 95%. GENERAL: WNL nutrition, no deformities, healthy appearing PROBLEM LIST REVIEW: Yes LABS: Results for orders placed or performed in visit on 06/18/24 PSA/PROSTSPECAG DIAG Result Value Ref Range PSA 11.54 (H) <2.60 ng/mL ASSESSMENT/PLAN: 1. Elevated prostate specific antigen (PSA) - ICD9: 790.93, ICD10: R97.20 > IsoPSA -13.4% > PSA - 8.32 > Most recent PSA is 11.54 - PROSTATE BIOPSY GUKI - orders placed 1 New Condition: with unknown prognosis; with monitoring with labs and follow-up visits 1 Testing Recommendations: Ordered today; biopsy > Message sent for scheduling Prostate Biopsy at [place] ENRIQUE Richard, JEIMY GIBBONS documented in this encounter [facility] 06-19-2024 Telephone encounter Note Enedelia returned call. Verified name and date of of patient. [facility] patient was nervous about doing the biopsy due to needing to do enema and then with hospital visit and summer patient put off rescheduling the biopsy. Now that winter is here patient is more concerned and does want to review recent PSA results and talk with provider about plan and getting biopsy rescheduled. Leelee Lyon LPN [facility] 06-19-2024 Miscellaneous Notes Enedelia returned call. Verified name and date of of patient. [facility] patient was nervous about doing the biopsy due to needing to do enema and then with hospital visit and summer patient put off rescheduling the biopsy. Now that winter is here patient is more concerned and does want to review recent PSA results and talk with provider about plan and getting biopsy rescheduled. Leelee Lyon LPN Called Enedelia, patient's niece. No answer- left message to call clinic. Last annual with Porsha was 06/19/2023 but did see provider 01/01/2024 where a biopsy was ordered but not completed due to patient admitted to hospital related to COPD. Not rescheduled. Does patient request to keep appointment for Sunday to get updated plan or is patient wanting to get biopsy rescheduled? We are happy to see patient on Sunday but wanted to verify need for appointment if biopsy is still requested. Leelee Lyon LPN documented in this encounter [facility] 06-19-2024 Telephone encounter Note Called Enedelia, patient's niece. No answer- left message to call clinic. Last annual with Porsha was 06/19/2023 but did see provider 01/01/2024 where a biopsy was ordered but not completed due to patient admitted to hospital related to COPD. Not rescheduled. Does patient request to keep appointment for Sunday to get updated plan or is patient wanting to get biopsy rescheduled? We are happy to see patient on Sunday but wanted to verify need for appointment if biopsy is still requested. Leelee Lyon LPN [facility] 06-18-2024 Instructions Yuval Dorantes MD - 06/18/2024 2:48 PM EST - Continue taking your current medications as prescribed: - Trazodone - Nitroglycerin - Losartan - Synthroid: Take 1 pill daily, except on Mondays, take 2 pills. - Clonazepam: Refill scheduled for July 18; 3 refills provided. - Stiolto Respimat inhaler for COPD: Ensure you have enough supply until your next appointment with Dr. Ulrich on August 11. Contact Dr. Ulrich's office for refills if needed. - Complete your PSA lab today - Monitor your memory and consider using a calendar or medication organizer to track your medication intake. - Engage in regular exercise, such as walking, to improve cognitive function. - Consider activities that stimulate your brain, such as reading, puzzles, or learning a new hobby or instrument. - Discuss any worsening memory issues with your healthcare provider. - Next appointment with Dr. Ulrich on August 11. - Follow-up appointment in October. TDAP and RSV vaccines--get at pharmacy where Medicare D pays for them documented in this encounter [facility] 06-18-2024 Note HNO ID: [id number] Author: YUVAL DORANTES MD Service: ? Author Type: Physician Type: Progress Notes Filed: 07/30/2024 16:02 Note Text: This note was created using NoteWriter. Subjective Shashank Espinoza is a 79 year old male. Patient presents with: Recheck SUBJECTIVE: Shashank Espinoza is a 79 year old year old gentleman here today for 4 month follow up appointment for review of medical conditions. Shashank Espinoza is a 79-year-old male with a history of COPD, HTN, and hypothyroidism, presenting for a 4-month follow-up. [facility] despite multiple requests. He has an upcoming appointment with PHYLLIS Montalvo, for prostate evaluation and is scheduled for lab work tomorrow. He inquires if he can complete the lab work today instead. He reports that his current COPD medication, Stiolto Respimat, prescribed by charging board operator Mae Patel in April, is effective. He has one inhaler left, which will last until June 25, and is concerned about refills. He also uses an albuterol inhaler and Atrovent nasal spray. He is scheduled to see Dr. Ulrich, charging board operator, in July. Shashank is taking multiple medications, including trazodone, nitroglycerin, losartan, and Synthroid. He confirms taking Synthroid 50 mcg daily, with a double dose on Mondays. He also takes clonazepam, recently refilled, and inquires about the number of refills available. He reports taking 1-1.5 tablets daily. He reports significant memory issues, including forgetting medication administration. Denies any problems with remembering family memebers' identities. He sleeps 7 hours nightly with the aid of clonazepam and trazodone. He denies symptoms of hyperthyroidism or hypothyroidism, such as palpitations, fatigue, unexplained weight loss, diarrhea, or constipation. He also denies engaging in regular exercise. 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 [facility] 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 MRA 07/07/11 Anxiety state, unspecified Ascending aorta dilatation (HCC) 10/14/2015 CT Chest 4.5X3.96cm BENIGN NEOPLASM LG BOWEL 05/08/2005 colon polyps Benign prostatic hyperplasia with urinary retention CAD (coronary artery disease) 08/22/2010 s/p drug eluting stent placement (2) Carotid artery occlusion, right MRI 07/04/11; MRA 07/07/11 Centrilobular emphysema (HCC) 09/25/2022 Depressive disorder, not elsewhere classified Disorder of bone and cartilage, unspecified Elevated prostate specific antigen (PSA) Essential hypertension, benign GASTROINTEST HEMORR NOS 05/08/2005 Hearing loss in left ear Dr. 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 albuterol HFA (PROVENTIL HFA, VENTOLIN HFA) 90 mcg/actuation inhaler Inhale 2 Puffs as instructed every 4 hours as needed. clonazePAM (KLONOPIN) 1 mg tablet Take 1 tablet by mouth daily at bedtime. May also take 1 tablet once daily as needed. Do all this for 90 days. Do not start before February 19, 2024. ipratropium bromide (ATROVENT) 42 mcg (0.06 %) nasal spray Use 2 Sprays in the nose four times daily as needed. fluticasone (FLONASE) 50 mcg/actuation nasal spray Use 2 Sprays in each nostril once daily as needed. Rinse mouth after use. traZODone (DESYREL) 100 mg tablet Take 1-2 tablets by mouth daily at bedtime. ([facility]) psyllium husk (KONSYL SUGAR-FREE) 6 gram/6 gram powd Take 1 Scoop by mouth once daily as needed. nitroglycerin sublingual (NITROQUICK) 0.4 mg SL tablet Dissolve 1 tablet under the tongue as needed. FOR CHEST PAIN. IF NO RELIEF CALL 911 atorvastatin (LIPITOR) 40 mg tablet Take 1 tablet by mouth once daily. For cholesterol. ([facility]) famotidine (PEPCID) 40 mg tablet Take 1 tablet by mouth twice daily. amLODIPine (NORVASC) 10 mg tablet Take 1 tablet by mouth once daily. 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 Cruz) losartan (COZAAR) 100 mg tablet Take 1 tablet by mouth once daily. Aspirin 81 mg ORAL Tab Take 81 mg by mouth once daily. levothyroxine (SYNTHROID) 50 mcg tablet Take 1 tablet by mouth once daily. (more content not included)... [facility] 06-18-2024 History of Present illness Narrative This note was created using English Helperter. Subjective Shashank Espinoza is a 79 year old male. Patient presents with: Recheck SUBJECTIVE: Shashank Espinoza is a 79 year old year old gentleman here today for 4 month follow up appointment for review of medical conditions. Shashank Espinoza is a 79-year-old male with a history of COPD, HTN, and hypothyroidism, presenting for a 4-month follow-up. [facility], noting that [facility] not [facility] lab results despite multiple requests. He has an upcoming appointment with PHYLLIS Montalvo, for prostate evaluation and is scheduled for lab work tomorrow. He inquires if he can complete the lab work today instead. He reports that his current COPD medication, Stiolto Respimat, prescribed by charging board operator Mae Patel in April, is effective. He has one inhaler left, which will last until June 25, and is concerned about refills. He also uses an albuterol inhaler and Atrovent nasal spray. He is scheduled to see Dr. Ulrich, charging board operator, in July. Shashank is taking multiple medications, including trazodone, nitroglycerin, losartan, and Synthroid. He confirms taking Synthroid 50 mcg daily, with a double dose on Mondays. He also takes clonazepam, recently refilled, and inquires about the number of refills available. He reports taking 1-1.5 tablets daily. He reports significant memory issues, including forgetting medication administration and family members' identities. He sleeps 7 hours nightly with the aid of clonazepam and trazodone. He denies symptoms of hyperthyroidism or hypothyroidism, such as palpitations, fatigue, unexplained weight loss, diarrhea, or constipation. He also denies engaging in regular exercise. 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 [facility]. 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 MRA 07/07/11 Anxiety state, unspecified Ascending aorta dilatation (HCC) 10/14/2015 CT Chest 4.5X3.96cm BENIGN NEOPLASM LG BOWEL 05/08/2005 colon polyps Benign prostatic hyperplasia with urinary retention CAD (coronary artery disease) 08/22/2010 s/p drug eluting stent placement (2) Carotid artery occlusion, right MRI 07/04/11; MRA 07/07/11 Centrilobular emphysema (HCC) 09/25/2022 Depressive disorder, not elsewhere classified Disorder of bone and cartilage, unspecified Elevated prostate specific antigen (PSA) Essential hypertension, benign GASTROINTEST HEMORR NOS 05/08/2005 Hearing loss in left ear Dr. 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 albuterol HFA (PROVENTIL HFA, VENTOLIN HFA) 90 mcg/actuation inhaler Inhale 2 Puffs as instructed every 4 hours as needed. clonazePAM (KLONOPIN) 1 mg tablet Take 1 tablet by mouth daily at bedtime. May also take 1 tablet once daily as needed. Do all this for 90 days. Do not start before February 19, 2024. ipratropium bromide (ATROVENT) 42 mcg (0.06 %) nasal spray Use 2 Sprays in the nose four times daily as needed. fluticasone (FLONASE) 50 mcg/actuation nasal spray Use 2 Sprays in each nostril once daily as needed. Rinse mouth after use. traZODone (DESYREL) 100 mg tablet Take 1-2 tablets by mouth daily at bedtime. ([facility]) psyllium husk (KONSYL SUGAR-FREE) 6 gram/6 gram powd Take 1 Scoop by mouth once daily as needed. nitroglycerin sublingual (NITROQUICK) 0.4 mg SL tablet Dissolve 1 tablet under the tongue as needed. FOR CHEST PAIN. IF NO RELIEF CALL 911 atorvastatin (LIPITOR) 40 mg tablet Take 1 tablet by mouth once daily. For cholesterol. (From [facility]) famotidine (PEPCID) 40 mg tablet Take 1 tablet by mouth twice daily. amLODIPine (NORVASC) 10 mg tablet Take 1 tablet by mouth once daily. ([place] Praveen senior mechanical engineer increased dose--Dr. Cruz) losartan (COZAAR) 100 mg tablet Take 1 tablet by mouth once daily. Aspirin 81 mg ORAL Tab Take 81 mg by mouth once daily. levothyroxine (SYNTHROID) 50 mcg tablet Take 1 tablet by mouth once daily. Except take 2 on Sunday ([facility]) azithromycin (ZITHROMAX) 500 mg tablet Take 500 mg by mouth once daily. (Patient not taking: Reported on 04/16/2024) docusate sodium (COLACE) 100 mg capsule Take 1 capsule by mouth twice daily as needed for Constipation. (Patient not taking: Reported on 01/01/2024) No current facility-administered medications for this visit. Review of Systems Objective BP 118/60 Pulse 68 Wt 74 kg (163 lb 2.3 oz) SpO2 98% BMI (P) 24.48 kg/m Last 5 Encounter Wt Readings: Date: Wt: 06/18/2024 74 kg (163 lb 2.3 oz) 04/16/2024 73.9 kg (163 lb) 03/04/2024 74.4 kg (164 lb) 01/31/2024 73 kg (161 lb) 01/01/2024 75.7 kg (166 lb 12.8 oz) No waist measurement recorded Estimated body mass index is 24.48 kg/m (pended) as calculated from the following: Height as of 03/04/24: (P) 173.9 cm (5' 8.45). Weight as of this encounter: 74 kg (163 lb 2.3 oz). Last 5 Encounter BP Readings: Date: BP: 06/18/2024 118/60 04/16/2024 102/64 01/31/2024 134/66 01/01/2024 98/68 10/15/2023 110/70 Physical Exam Vitals reviewed. Constitutional: Appearance: Normal appearance. Eyes: Conjunctiva/sclera: Conjunctivae normal. Cardiovascular: Rate and Rhythm: Normal rate and regular rhythm. Heart sounds: Normal heart sounds. Pulmonary: Effort: Pulmonary effort is normal. Breath sounds: Normal breath sounds. Musculoskeletal: Right lower leg: No edema. Left lower leg: No edema. Skin: General: Skin is warm and dry. Neurological: General: No focal deficit present. Mental Status: He is alert and oriented to person, place, and time. Psychiatric: Attention and Perception: Attention and perception normal. Mood and Affect: Mood and affect normal. Behavior: Behavior normal. Thought Content: Thought content normal. Judgment: Judgment normal. Labs retrieved: Labs: PSA: - 7.4 ng/mL (elevated) - Previously: 7.04 ng/mL (elevated) CBC: - No anemia - Differential: Normal Comprehensive Metabolic Panel: - Chloride: 109 mmol/L (elevated) - Glucose: 99 mg/dL (normal) - Liver function tests: Normal - Anion gap: 9.5 (normal is 10) - Albumin: 4.1 g/dL Lipid Panel: - Total cholesterol: 130 mg/dL - LDL: 65 mg/dL - HDL: 40 mg/dL - Triglycerides: 100 mg/dL TSH: 2.219 IU/mL (normal) Hemoglobin A1c: 5.5% (normal) Assessment and Plan # Acquired hypothyroidism (E03.9) - Current medication regimen includes Synthroid 50 mcg daily with an additional dose on Mondays. - Recent TSH level in November was 2.219 mIU/L; no free T4 was performed. - No symptoms of hyperthyroidism or hypothyroidism reported. - Ordered TSH and free T4 to be performed with upcoming labs. 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 - Discussed potential impact of clonazepam on memory and risks of long-term use, including increased risk of dementia. - Advised gradual reduction of clonazepam dosage. # Memory deficit (R41.3) - Noted issues with short-term memory, including difficulty remembering medication administration and familiar individuals. - Discussed potential contribution of clonazepam to memory impairment. - Recommended cognitive exercises, regular physical activity, and engagement in new hobbies to support cognitive function. - Discussed referral to Dr. Ken for further evaluation and management if symptoms persist or worsen. # Anxiety (F41.9) - Currently managed with clonazepam. - Discussed potential impact of clonazepam on memory and risks of long-term use, including increased risk of dementia. - Advised gradual reduction of clonazepam dosage. # Encounter for immunization (Z23) - Patient has received flu and [facility]-19 vaccinations at the [facility]. - Discussed the importance of RSV and Tdap vaccinations; advised to obtain these at the pharmacy. # Chronic obstructive pulmonary disease, unspecified COPD type (HCC) (J44.9) - Current medications include Stiolto Respimat and albuterol inhaler. - Stiolto Respimat is effective; patient has one inhaler remaining. - Confirmed refills available; advised to contact Dr. Ulrich for additional refills if needed. - Follow-up appointment with Dr. Ulrich scheduled for August 11. # Essential (primary) hypertension (I10) - Managed with losartan. - Recent blood pressure readings within normal limits. - Continue current medication regimen. Prevnar 20 today. Yuval Dorantes MD documented in this encounter [facility] 04-17-2024 Telephone encounter Note Patient called in stating that he is able [facility] and they told him to not be concerned about the montes. Patient was very impressed and happy with his appointment. Shantel Kelley, RN [facility] 04-17-2024 Miscellaneous Notes Patient called in stating that he is able to [facility] the [facility] and they told him to not be concerned about the montes. Patient was very impressed and happy with his appointment. Shantel Kelley, RN documented in this encounter [facility] 04-16-2024 Instructions Mae Patle APRN.CHAD - 04/16/2024 11:11 AM EDT You can use up the Spiriva inhaler that you have at home. When that inhaler runs out, the [facility] St[facility]. Monitor your breathing on Stiolto and let us know if you notice any change, good or bad. Let us know if you want a refill of Albuterol (your rescue inhaler). Tiotropium-olodaterol (STIOLTO RESPIMAT) 2 sprays once daily. documented in this encounter [facility] 04-16-2024 History of Present illness Narrative Images from the original note were not included. Pulmonary Medicine Patients name: Shashank Espinoza PCP: Yuval Dorantes MD CC: COPD follow-up HPI: Shashank Espinoza is a 79 year old male former 23 pack year smoker, quitting in 2010 with PMH significant for anxiety/depression, CAD s/p stent, PAD, hypothyroidism, HLD, TIA, AAA, RLL lung nodule, and Emphysema. Hx alpha 1 antitrypsin level normal. Not in [facility]CS program but does get annual chest CT d/t hx AAA. His December 2022 CT revealed a new RLL nodule. At his [facility] in October 2023, he denied respiratory symptoms despite known emphysema on imaging. He also previously had preserved PFT. He was admitted to [facility] in January for COPD exacerbation. He was discharged home with Azithromycin, Prednisone and PRN Albuterol. Following this hospitalization, he underwent updated PFT's which showed mild COPD and air trapping. Current therapy includes Spiriva Respimat and PRN Albuterol. Today, patient reports his breathing feels worse since starting Spiriva. He started the inhaler on 03/22 and since reports that he feels like he has to mouth breathe to get enough air. He doesn't recall if he had these symptoms after [facility]OP[facility] in January. He messaged the office on 04/14 regarding symptoms and Stiolto was recommended. He gets his prescriptions through the [facility] and reports being notified that a refill for Spiriva is coming in the mail. He also has a dry cough and has had it for years. Denies any sputum or hemoptysis. No wheezing. No dyspnea at rest. Has exertional dyspnea but is able to push through activity if needed. No other recent illnesses. No further hospitalizations or ED visits or upper respiratory infections. Denies GERD/reflux symptoms. 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 MRA 07/07/11 Anxiety state, unspecified Ascending aorta dilatation (HCC) 10/14/2015 CT Chest 4.5X3.96cm BENIGN NEOPLASM LG BOWEL 05/08/2005 colon polyps Benign prostatic hyperplasia with urinary retention CAD (coronary artery disease) 08/22/2010 s/p drug eluting stent placement (2) Carotid artery occlusion, right MRI 07/04/11; MRA 07/07/11 Centrilobular emphysema (HCC) 09/25/2022 Depressive disorder, not elsewhere classified Disorder of bone and cartilage, unspecified Elevated prostate specific antigen (PSA) Essential hypertension, benign GASTROINTEST HEMORR NOS 05/08/2005 Hearing loss in left ear Dr. 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 If you have any questions, ask your nurse or doctor. CHANGE how you take these medications levothyroxine 50 mcg tablet Commonly known as: SYNTHROID Currently taking 1 pill daily except 1 day a week takes 2 pills (Sunday) ([facility]; dose decreased to one pill daily by [facility] provider) What changed: additional instructions CONTINUE taking these medications albuterol HFA 90 mcg/actuation inhaler Commonly known as: PROVENTIL HFA, VENTOLIN HFA amLODIPine 10 mg tablet Commonly known as: NORVASC Take 1 tablet by mouth once daily. 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 Cruz) Aspirin 81 mg Tab atorvastatin 40 mg tablet Commonly known as: LIPITOR Take 1 tablet by mouth once daily. For cholesterol. (From [facility]) azithromycin 500 mg tablet Commonly known as: ZITHROMAX clonazePAM 1 mg tablet Commonly known as: KlonoPIN Take 1 tablet by mouth daily at bedtime. May also take 1 tablet once daily as needed. Do all this for 90 days. Do not start before February 19, 2024. docusate sodium 100 mg capsule Commonly known as: COLACE Take 1 capsule by mouth twice daily as needed for Constipation. famotidine 40 mg tablet Commonly known as: PEPCID Take 1 tablet by mouth twice daily. fluticasone 50 mcg/actuation nasal spray Commonly known as: FLONASE Use 2 Sprays in each nostril once daily as needed. Rinse mouth after use. ipratropium bromide 42 mcg (0.06 %) nasal spray Commonly known as: ATROVENT Use 2 Sprays in the nose four times daily as needed. KONSYL SUGAR-FREE 6 gram/6 gram Powd Generic drug: psyllium husk Take 1 Scoop by mouth once daily as needed. losartan 100 mg tablet Commonly known as: COZAAR Take 1 tablet by mouth once daily. nitroglycerin sublingual 0.4 mg SL tablet Commonly known as: NITROQUICK Dissolve 1 tablet under the tongue as needed. FOR CHEST PAIN. IF NO RELIEF CALL 911 SPIRIVA RESPIMAT 2.5 mcg/actuation inhaler Generic drug: tiotropium bromide Inhale 2 Puffs as instructed once daily. STIOLTO RESPIMAT 2.5-2.5 mcg/actuation inhaler Generic drug: tiotropium-olodaterol Inhale 2 Puffs as instructed once daily. traZODone 100 mg tablet Commonly known as: DESYREL Take 1-2 tablets by mouth daily at bedtime. (Get through [facility] now) DATA: I personally reviewed and analyzed all labs, radiographs and available pulmonary function testing PFT: 03/04/2024 CXR: Last XR Chest - Impression Only XR CHEST 2V FRONTAL/LAT Exam End: 09/17/2018 2:21 PM (Final result) Impression: IMPRESSION: Stable chest. No acute cardiopulmonary process. Rib Matcher And Fitter: HORACIO Transcribe Date/Time: Sep 17 2018 2:35P Dictated by : TAMARA RICHARDSON MD... CT Chest: 10/2023 IMPRESSION: 1. Few 2 to 3 mm pulmonary nodules 2. Emphysema 3. No thoracic lymphadenopathy Incidental Finding: Follow-up Acuity: Incidental Finding: Solid: <6 mm (solitary or multiple) Routing Code: N/A Recommendation: No imaging follow-up is recommended Time Frame: N/A Comments: If there are risk factors for lung malignancy, a follow-up chest CT exam could be obtained in 12 months --END OF FINDING-- Rib Matcher And Fitter: HORACIO Transcribe Date/Time: Nov 05 2023 3:10P Dictated by : JAN CHURCH MD This examination was interpreted and the report reviewed and electronically signed by: JAN CHURCH MD on Nov 05 2023 3:22PM EST Results-Findings * * *Final Report* * * DATE OF EXAM: Oct 31 2023 11:15AM [facility] [id number] - CT CHEST WO IVCON / PROCEDURE REASON: multiple diagnoses * * * * Physician Interpretation * * * * EXAMINATION: CHEST CT WITHOUT CONTRAST CLINICAL HISTORY: Lung nodules. Centrilobular emphysema. History of smoking. Technique: Spiral CT acquisition of the chest from the thoracic inlet to the upper abdomen without contrast. MQ: [id number] CT Radiation dose: Integrated Dose-length product (DLP) for this visit = 206 mGy*cm CT Dose Reduction Employed: Automated exposure control(AEC) and iterative recon Comparison: No prior CT chest is available for comparison. RESULT: Limitations: None. Lines, tubes, and devices: None. Lung parenchyma and airways: *3 mm nodule along the lateral right minor fissure (6:117) *2 mm nodule lateral right middle lobe (6:119) *2 mm nodule lateral right lower lobe (6:137) Linear scarring or atelectasis in bilateral lower lobes. No consolidation. Centrilobular emphysema. Central airways are patent. Pleural space: No pleural effusion. No pleural thickening. Lower neck, lymph nodes, and mediastinum: The imaged thyroid gland is normal. No lymphadenopathy in the supraclavicular, axillary, mediastinal, or hilar regions. Heart, pericardium, and thoracic vessels: The thoracic aorta and main pulmonary artery are normal in caliber. The cardiac chambers are normal in size. Coronary artery atherosclerotic calcifications are noted, although the study is not optimized for coronary assessment. No pericardial effusion or thickening. Bones and soft tissues: No destructive bone lesion. Kyphosis and degenerative disease of the thoracic spine. Chest wall is unremarkable. Upper abdomen: No acute abnormality in the imaged upper abdomen. Multiple hepatic cysts and subcentimeter low-density lesions too small to characterize. Review of Systems Constitutional: Negative for activity change, fatigue, fever and unexpected weight change. HENT: Negative for congestion, postnasal drip and sinus pressure. Respiratory: Positive for cough. Negative for chest tightness, shortness of breath and wheezing. Cardiovascular: Negative for chest pain, palpitations and leg swelling. Allergic/Immunologic: Negative for environmental allergies. Neurological: Negative for dizziness and light-headedness. BP 102/64 Pulse 64 Resp 15 Wt 73.9 kg (163 lb) SpO2 96% BMI (P) 24.46 kg/m Physical Exam Constitutional: General: He is not in acute distress. Appearance: Normal appearance. He is normal weight. HENT: Head: Normocephalic. Nose: No congestion or rhinorrhea. Mouth/Throat: Mouth: Mucous membranes are moist. Pharynx: No oropharyngeal exudate. Cardiovascular: Rate and Rhythm: Normal rate and regular rhythm. Heart sounds: Normal heart sounds. Pulmonary: Effort: Pulmonary effort is normal. No respiratory distress. Breath sounds: No wheezing. Musculoskeletal: Right lower leg: No edema. Left lower leg: No edema. Lymphadenopathy: Cervical: No cervical adenopathy. Skin: General: Skin is warm and dry. Capillary Refill: Capillary refill takes less than 2 seconds. Neurological: General: No focal deficit present. Mental Status: He is alert. ASSESSMENT/PLAN: 1. Centrilobular emphysema (HCC) - ICD9: 492.8, ICD10: J43.2 (primary diagnosis) - noted on Chest CT - patient with possible mild obstruction on spirometry and air trapping - hospitalized for COPD exacerbation in January 2024 - currently on Spiriva but notes worsening breathing symptoms - inhaler technique reviewed with RT - patient [facility]. Would like to use inhaler before starting new medication. - start Tiotropium-olodaterol (STIOLTO RESPIMAT) 2 sprays once daily. - instructed on Albuterol PRN 2. Lung nodules - ICD9: 793.19, ICD10: R91.8 - multiple 2-3 mm nodules - scheduled for follow-up chest CT July 2024 F/u 3 months, review chest CT and Stiolto follow-up Portions of this documentation were copied and pasted from previous office visit notes in order to provide a cohesive continuity of the history. The note has been reviewed and edited and updated as necessary. Mae Patel APRN.CNP I spent a total of 41 minutes on the date of the service which included preparing to see the patient, [id number] patient care, completing clinical documentation, performing a medically appropriate examination, counseling and educating the patient/family/caregiver, ordering medications, tests, or procedures, and communicating results to the patient/family/caregiver. documented in this encounter [facility] 04-16-2024 Note HNO ID: [id number] Author: MAE PATEL APRN.CNP Service: ? Author Type: Nurse Practitioner Type: Progress Notes Filed: 04/16/2024 12:51 Note Text: Pulmonary Medicine Patients name: Shashank Espinoza PCP: Yuval Dorantes MD CC: COPD follow-up HPI: Shashank Espinoza is a 79 year old male former 23 pack year smoker, quitting in 2010 with PMH significant for anxiety/depression, CAD s/p stent, PAD, hypothyroidism, HLD, TIA, AAA, RLL lung nodule, and Emphysema. Hx alpha 1 antitrypsin level normal. Not in [facility] program but does get annual chest CT d/t hx AAA. His December 2022 CT revealed a new RLL nodule. At his [facility] in October 2023, he denied respiratory symptoms despite known emphysema on imaging. He also previously had preserved PFT. He was admitted to [facility] in January for COPD exacerbation. He was discharged home with Azithromycin, Prednisone and PRN Albuterol. Following this hospitalization, he underwent updated PFT's which showed mild COPD and air trapping. Current therapy includes Spiriva Respimat and PRN Albuterol. Today, patient reports his breathing feels worse since starting Spiriva. He started the inhaler on 03/22 and since reports that he feels like he has to mouth breathe to get enough air. He doesn't recall if he had these symptoms after AECOPD in January. He messaged the office on 04/14 regarding symptoms and Stiolto was recommended. [facility] and reports being notified that a refill for Spiriva is coming in the mail. He also has a dry cough and has had it for years. Denies any sputum or hemoptysis. No wheezing. No dyspnea at rest. Has exertional dyspnea but is able to push through activity if needed. No other recent illnesses. No further hospitalizations or ED visits or upper respiratory infections. Denies GERD/reflux symptoms. 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 MRA 07/07/11 Anxiety state, unspecified Ascending aorta dilatation (HCC) 10/14/2015 CT Chest 4.5X3.96cm BENIGN NEOPLASM LG BOWEL 05/08/2005 colon polyps Benign prostatic hyperplasia with urinary retention CAD (coronary artery disease) 08/22/2010 s/p drug eluting stent placement (2) Carotid artery occlusion, right MRI 07/04/11; MRA 07/07/11 Centrilobular emphysema (HCC) 09/25/2022 Depressive disorder, not elsewhere classified Disorder of bone and cartilage, unspecified Elevated prostate specific antigen (PSA) Essential hypertension, benign GASTROINTEST HEMORR NOS 05/08/2005 Hearing loss in left ear Dr. 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 If you have any questions, ask your nurse or doctor. CHANGE how you take these medications levothyroxine 50 mcg tablet Commonly known as: SYNTHROID Currently taking 1 pill daily except 1 day a week takes 2 pills (Sunday) ([facility]; dose [facility] to one pill daily by [facility] provider) What changed: additional instructions CONTINUE taking these medications albuterol HFA 90 mcg/actuation inhaler Commonly known as: PROVENTIL HFA, VENTOLIN HFA amLODIPine 10 mg tablet Commonly known as: NORVASC Take 1 tablet by mouth once daily. 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 Cruz) Aspirin 81 mg Tab atorvastatin 40 mg tablet Commonly known as: LIPITOR Take 1 tablet by mouth once daily. For cholesterol. ([facility]) azithromycin 500 mg tablet Commonly known as: ZITHROMAX clonazePAM 1 mg tablet Commonly known as: KlonoPIN Take 1 tablet by mouth daily at bedtime. May also take 1 tablet once daily as needed. Do all this for 90 days. Do not start before February 19, 2024. docusate sodium 100 mg capsule Commonly known as: COLACE Take 1 capsule by mouth twice daily as needed for Constipation. famotidine 40 mg tablet Commonly known as: PEPCID Take 1 tablet by mouth twice daily. fluticasone 50 mcg/actuation nasal spray Commonly known as: FLONASE Use 2 Sprays in each nostril once daily as needed. Rinse mouth after use. ipratropium bromide 42 mcg (0.06 %) nasal spray Commonly known as: ATROVENT Use 2 Sprays in the nose four times daily as needed. KONSYL SUGAR-FREE 6 gram/6 gram Powd Generic drug: psyllium husk Take 1 Scoop by mouth once daily as needed. losartan 100 mg tablet Commonly known as: COZAAR Take 1 tablet by mouth once daily. nitroglycerin sublingual 0.4 mg SL tablet Commonly known as: NITROQUICK Dissolve 1 tablet under the tongue as ne (more content not included)... [facility] 04-14-2024 Telephone encounter Note Patient notified of med change. [facility]. Following our phone call, patient stopped by the office asking if he could move his annual follow up from October to Sunday. He would like to discuss sx and med change further. PSS to schedule. Ana Batista LPN [facility] 04-14-2024 Miscellaneous Notes Patient notified of med change. He may [facility]. Following our phone call, patient stopped by the office asking if he could move his annual follow up from October to Sunday. He would like to discuss sx and med change further. PSS to schedule. Ana Batista LPN Addended by: CARLA ULRICH on: 04/14/2024 12:11 PM Modules accepted: Orders Call received from Pt - name & verified. Pt calls and reports that he started using Spiriva Respimat on 03/22/2024. Since that time, he reports my breathing doesn't feel like it's gotten any easier. Sometimes I have to open my mouth to breathe in order to feel like I am getting enough air. He reports taking 1 puff, waiting 10 minutes, and then taking the second puff. He denies having to use his Albuterol inhaler anymore than normal. He denies increase or new phlegm/sputum production but does endorse increased congestion and throat clearing. [facility], but I just want Dr. Ulrich to know this is happening in case she feels like another inhaler might be better for me. Please review and advise. Call Pt's cell phone for return correspondence. Venecia Becerra RN April 14, 2024 9:53 AM documented in this encounter [facility] 04-14-2024 Note Addended by: CARLA ULRICH on: 04/14/2024 12:11 PM Modules accepted: Orders [facility] 04-14-2024 Telephone encounter Note Call received from Pt - name & verified. Pt calls and reports that he started using Spiriva Respimat on 03/22/2024. Since that time, he reports my breathing doesn't feel like it's gotten any easier. Sometimes I have to open my mouth to breathe in order to feel like I am getting enough air. He reports taking 1 puff, waiting 10 minutes, and then taking the second puff. He denies having to use his Albuterol inhaler anymore than normal. He denies increase or new phlegm/sputum production but does endorse increased congestion and throat clearing. Pt reports [facility] is [facility] me another refill, but I just want Dr. Ulrich to know this is happening in case she feels like another inhaler might be better for me. Please review and advise. Call Pt's cell phone for return correspondence. Venecia Becerra RN April 14, 2024 9:53 AM [facility] 03-12-2024 Miscellaneous Notes Enedelia Espinal called. She wanted to make sure that Dr. Ulrich had the CT scan and chest xray results from Shashank's admission in January to [facility]. View External Imaging - Chest xray @[facility] during admission [ID [id number]] View External Imaging - CT chest w/o contrast @[facility] during admission [ID [id number]] Ira Ellis RN documented in this encounter [facility] 03-12-2024 Telephone encounter Note Enedelia Espinal called. She wanted to make sure that Dr. Ulrich had the CT scan and chest xray results from Shashank's admission in January to [facility]. View External Imaging - Chest xray @[facility] during admission [ID [id number]] View External Imaging - CT chest w/o contrast @[facility] during admission [ID [id number]] Ira Ellis RN [facility] 03-11-2024 Telephone encounter Note Patient Update for Dr. Ulrich: Patient had 3 lung tests recently completed; lung volumes, lung diffusion capacity and spirometry, as ordered by Dr. Dorantes. Patient has been given Dr. Dorantes' response to the results. Patient has been reminded to follow up with Dr. Ulrich in Pulmonary in one year (Aptil 2024), as recommended this past October. Of note, patient's Chest CT completed 10/31/23 showed stable small nodules and pt was recommended by Dr. Ulrich to have repeat CT in 1 year. Please notify patient if Dr. Ulrich has other recommendations based on his recent lung volume results, if necessary. Carole Cota RN [facility] 03-11-2024 Miscellaneous Notes Patient Update for Dr. Ulrich: Patient had 3 lung tests recently completed; lung volumes, lung diffusion capacity and spirometry, as ordered by Dr. Dorantes. Patient has been given Dr. Dorantes' response to the results. Patient has been reminded to follow up with Dr. Ulrich in Pulmonary in one year (Aptil 2024), as recommended this past October. Of note, patient's Chest CT completed 10/31/23 showed stable small nodules and pt was recommended by Dr. Ulrich to have repeat CT in 1 year. Please notify patient if Dr. Ulrich has other recommendations based on his recent lung volume results, if necessary. Carole Cota RN documented in this encounter [facility] 03-11-2024 Telephone encounter Note Patient update/FYI: Patient called, and message below was reviewed. Pt verbalized understanding and will share this with his niece Enedelia, who has been helpful to him. MyChart message also sent to patient today, with PCP's summarization of his recent 3 lung test results, as pt requested. Patient also reminded to follow up with Dr. Ulrich in 1 year (October 2024), as advised by Dr. Ulrich in October 2023. Will send message to Dr. Ulrich of results of recent 3 lung tests as well, and Dr. Ulrich to offer any other recommendations as needed. See Telephone Note 03/08/24. Carole Cota RN [facility] 03-11-2024 Miscellaneous Notes Patient update/FYI: Patient called, and message below was reviewed. Pt verbalized understanding and will share this with his niece Enedelia, who has been helpful to him. MyChart message also sent to patient today, with PCP's summarization of his recent 3 lung test results, as pt requested. Patient also reminded to follow up with Dr. Ulrich in 1 year (October 2024), as advised by Dr. Ulrich in October 2023. Will send message to Dr. Ulrich of results of recent 3 lung tests as well, and Dr. Ulrich to offer any other recommendations as needed. See Telephone Note 03/08/24. Carole Cota RN I just went back in the chart and saw that Dr. Ulrich had already addressed the results of the October CT scan and sent patient a [employer] message that the nodule were stable and recommended follow up in a year (so October 2024)--there was a MyChart message that was sent 11/07/23. I had only looked at the CT report and did not see a result note. She had sent him a MyChart message instead of a result note. Reason I did not her that she had addressed it. Okay if radiologist does not do the comparison since Dr. Ulrich already saw that the nodules were stable and made recommendation for follow up next year. According to the [employer] message, he read the results already on 11/09/23--see if he can find the Giving Assistant message to review The recent 3 lung tests summarized below: The test showed possible mild obstruction so that goes along with the last spirometry which had shown mild small airways obstruction. No improvement with giving a breathing treatment. He has lung volumes that are increased (hyperinflation with air trapping) that is consistent with his diagnosis of emphysema. Reduced diffusing capacity (ability to exchange carbon dioxide and oxygen) with mild obstruction goes along with diagnosis of emphysema. Contacted patient and given Dr. Dorantes' message below, as copied: Can let patient know that there were small nodules seen like last year but no mention that it was compared to last year. Will be having the radiologist compare to last year's CT if they can. Dr. Ulrich will also check results and we can see what she recommends for next follow up(if any) with CT scan. 2. Patient asking for results of his recent 3 lung tests ( lung volumes, lung diffusion capacity and spirometry) be sent to him via Giving Assistant using layman's terms, please. 3. If PCP office could please address PCP's request from below, also: Can radiology obtain the CT from [facility] for comparison to see if still needs follow up in year? Please call patient with any questions or updates. Thank you. Noted that comparison was not made to one done at [facility] but no recommendation was made for follow u. However, the comment states that if he has risk factors for lung malignancy, should recheck in a year. Can radiology obtain the CT from [facility] for comparison to see if still needs follow up in year? Noted that Dr. Ulrich had ordered this study but no follow up appointment made. Can let patient know that there were small nodules seen like last year but no mention that it was compared to last year. Will be having the radiologist compare to last year's CT if they can. Dr. Ulrich will also check results and we can see what she recommends for next follow up(if any) with CT scan. Patient calling asking for his lung test results, were done Sunday. He can see results in his my chart but does not understand what it says. Please advise documented in this encounter [facility] 03-10-2024 Telephone encounter Note I just went back in the chart and saw that Dr. Ulrich had already addressed the results of the October CT scan and sent patient a Giving Assistant message that the nodule were stable and recommended follow up in a year (so October 2024)--there was a [employer] message that was sent 11/07/23. I had only looked at the CT report and did not see a result note. She had sent him a MyChart message instead of a result note. Reason I did not her that she had addressed it. Okay if radiologist does not do the comparison since Dr. Ulrich already saw that the nodules were stable and made recommendation for follow up next year. According to the Giving Assistant message, he read the results already on 11/09/23--see if he can find the [employer] message to review The recent 3 lung tests summarized below: The test showed possible mild obstruction so that goes along with the last spirometry which had shown mild small airways obstruction. No improvement with giving a breathing treatment. He has lung volumes that are increased (hyperinflation with air trapping) that is consistent with his diagnosis of emphysema. Reduced diffusing capacity (ability to exchange carbon dioxide and oxygen) with mild obstruction goes along with diagnosis of emphysema. [facility] 03-10-2024 Telephone encounter Note Contacted patient and given Dr. Dorantes' message below, as copied: Can let patient know that there were small nodules seen like last year but no mention that it was compared to last year. Will be having the radiologist compare to last year's CT if they can. Dr. Ulrich will also check results and we can see what she recommends for next follow up(if any) with CT scan. 2. Patient asking for results of his recent 3 lung tests ( lung volumes, lung diffusion capacity and spirometry) be sent to him via G[employer] Assistant using layman's terms, please. 3. If PCP office could please address PCP's request from below, also: Can radiology obtain the CT from [facility] for comparison to see if still needs follow up in year? Please call patient with any questions or updates. Thank you. [facility] 03-07-2024 Telephone encounter Note Noted that comparison was not made to one done at [facility] but no recommendation was made for follow u. However, the comment states that if he has risk factors for lung malignancy, should recheck in a year. Can radiology obtain the CT from [facility] for comparison to see if still needs follow up in year? Noted that Dr. Ulrich had ordered this study but no follow up appointment made. Can let patient know that there were small nodules seen like last year but no mention that it was compared to last year. Will be having the radiologist compare to last year's CT if they can. Dr. Ulrich will also check results and we can see what she recommends for next follow up(if any) with CT scan. [facility] 03-07-2024 Telephone encounter Note Patient calling asking for his lung test results, were done Sunday. He can see results in his my chart but does not understand what it says. Please advise [facility] 03-05-2024 Note HNO ID: [id number] Author: MORE PEARSON LPN Service: ? Author Type: LICENSED NURSE Type: Progress Notes Filed: 03/05/2024 10:05 Note Text: Patient states he did not need to see the provider. Just needed a script for handicap placard. Script has been signed and given to patient. No charge for today's appointment. [facility] 03-05-2024 History of Present illness Narrative Patient states he did not need to see the provider. Just needed a script for handicap placard. Script has been signed and given to patient. No charge for today's appointment. documented in this encounter [facility] 03-04-2024 Note HNO ID: [id number] Author: ERASMO SANDOVAL RPFT Service: ? Author Type: Respiratory Therapist Type: Progress Notes Filed: 03/04/2024 14:07 Note Text: PULM FUNCTION: Provider: Yuval Dorantes MD Assisting Tech: Erasmo Sandoval RPFT Spirometry w/BD: 1 DLCO: 1 LV - Box: 1 [facility] 03-04-2024 History of Present illness Narrative PULM FUNCTION: Provider: Yuval Dorantes MD Assisting Tech: Erasmo Sandoval RPFT Spirometry w/BD: 1 DLCO: 1 LV - Box: 1 documented in this encounter [facility] 01-31-2024 Instructions Yuval Dorantes MD - 01/31/2024 4:59 PM EDT Miralax 1 to 2 capfuls daily. Just started yesterday. Okay Psyllium nightly to twice daily. Dulcolax pill or Milk of Mag can help get bowels moving. [place] diet without a lot of residual until get bowels moving. Avoid bananas and cheese since can cause constipation. Get at least 6 to 8 cups noncaffeinated fluids daily to get hydrated, Okay grapes to get bowels going. Flax seed oil can help get bowels going. Senna can also help get bowels going. If develop gas or bloating, then can take GasX (simethicone) up to 125 mg up to 4 times daily to decompress bowels. May add back Colace if needed (stool softener) documented in this encounter [facility] 01-31-2024 Note HNO ID: [id number] Author: YUVAL DORANTES MD Service: ? Author Type: Physician Type: Progress Notes Filed: 03/09/2024 21:05 Note Text: This note was created using NoteWriter. Subjective Shashank Espinoza is a 79 year old male. Patient presents with: Follow Up: follow up- COPD and constipation- no BM since 01/24/24, c/o clammy and gittery after inhaler and completed prednisone SUBJECTIVE: Shashank Espinoza is a 79 year old year old gentleman here today for follow up appointment for review of medical conditions. Prostate issues noted. COPD diagnosis questioned. Treated as COPD exacerbation based on CXR showing hyperinflation. No prior diagnosis COPD with PFTs. Was given inhaler for COPD at the hospital. Also prednisone 20 mg 2 daily for 7 days and Zithromycin 500mg daily for 3 days. Chills are better, Inhaler is working--albuterol. A couple times daily. Some mild SANDHU noted worse with aging. Constipation: No BM since discharged a week ago. Bough something OTC but on label said not to take if over 55 without consulting with doctor. Fleets enema. Feels like cannot go at all. No pain in bottom and no pain in abdomen, In the past had constipation before. Psyllium tried and not helping. Already taking daily then increased to 2 daily. 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 MRA 07/07/11 Anxiety state, unspecified Ascending aorta dilatation (HCC) 10/14/2015 CT Chest 4.5X3.96cm BENIGN NEOPLASM LG BOWEL 05/08/2005 colon polyps Benign prostatic hyperplasia with urinary retention CAD (coronary artery disease) 08/22/2010 s/p drug eluting stent placement (2) Carotid artery occlusion, right MRI 07/04/11; MRA 07/07/11 Centrilobular emphysema (HCC) 09/25/2022 Depressive disorder, not elsewhere classified Disorder of bone and cartilage, unspecified Elevated prostate specific antigen (PSA) Essential hypertension, benign GASTROINTEST HEMORR NOS 05/08/2005 Hearing loss in left ear Dr. 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 azithromycin (ZITHROMAX) 500 mg tablet Take 500 mg by mouth once daily. predniSONE (DELTASONE) 20 mg tablet Take 20 mg by mouth two times a day. clonazePAM (KLONOPIN) 1 mg tablet Take 1 tablet by mouth daily at bedtime. May also take 1 tablet once daily as needed. Do all this for 90 days. ipratropium bromide (ATROVENT) 42 mcg (0.06 %) nasal spray Use 2 Sprays in the nose four times daily as needed. fluticasone (FLONASE) 50 mcg/actuation nasal spray Use 2 Sprays in each nostril once daily as needed. Rinse mouth after use. traZODone (DESYREL) 100 mg tablet Take 1-2 tablets by mouth daily at bedtime. ([facility]) psyllium husk (KONSYL SUGAR-FREE) 6 gram/6 gram powd Take 1 Scoop by mouth once daily as needed. nitroglycerin sublingual (NITROQUICK) 0.4 mg SL tablet Dissolve 1 tablet under the tongue as needed. FOR CHEST PAIN. IF NO RELIEF CALL 911 levothyroxine (SYNTHROID) 50 mcg tablet Currently taking 1 pill daily except 1 day a week takes 2 pills (Sunday) ([facility]; dose decreased to one pill daily by [facility] provider) (Patient taking differently: Currently taking 1 pill daily except 1 day a week takes 2 pills on Sunday) docusate sodium (COLACE) 100 mg capsule Take 1 capsule by mouth twice daily as needed for Constipation. (Patient not taking: Reported on 01/01/2024) atorvastatin (LIPITOR) 40 mg tablet Take 1 tablet by mouth once daily. For cholesterol. ([facility]) famotidine (PEPCID) 40 mg tablet Take 1 tablet by mouth twice daily. amLODIPine (NORVASC) 10 mg tablet Take 1 tablet by mouth once daily. 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 Cruz) losartan (COZAAR) 100 mg tablet Take 1 tablet by mouth once daily. Aspirin 81 mg ORAL Tab Take 81 mg by mouth once daily. No current facility-administered medications for this visit. Review of Systems Objective BP 134/66 (BP Site: Right Arm, BP Position: Sitting, BP Cuff Size: Regular Adult) Pulse (!) 57 Temp 36.6 ?C (97.9 ?F) Resp 12 Ht 172.7 cm (5' 8) Wt 73 kg (161 lb) SpO2 98% BMI 24.48 kg/m? Physical Exam Vitals reviewed. Constitutional: Appearance: Normal appearance. Eyes: Conjunctiva/sclera: Conjunctivae normal. Cardiovascular: Rate and Rhythm: Normal rate and regular rhythm. Heart sounds: Normal heart sounds. Pulmonary: Effort: Pulmonary effort is normal. (more content not included)... [facility] 01-31-2024 History of Present illness Narrative This note was created using [employer]. Subjective Shashank Espinoza is a 79 year old male. Patient presents with: Follow Up: follow up- COPD and constipation- no BM since 01/24/24, c/o clammy and gittery after inhaler and completed prednisone SUBJECTIVE: Shashank Espinoza is a 79 year old year old gentleman here today for follow up appointment for review of medical conditions. Prostate issues noted. COPD diagnosis questioned. Treated as COPD exacerbation based on CXR showing hyperinflation. No prior diagnosis COPD with PFTs. Was given inhaler for COPD at the hospital. Also prednisone 20 mg 2 daily for 7 days and Zithromycin 500mg daily for 3 days. Chills are better, Inhaler is working--albuterol. A couple times daily. Some mild SANDHU noted worse with aging. Constipation: No BM since discharged a week ago. Bough something OTC but on label said not to take if over 55 without consulting with doctor. Fleets enema. Feels like cannot go at all. No pain in bottom and no pain in abdomen, In the past had constipation before. Psyllium tried and not helping. Already taking daily then increased to 2 daily. 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 MRA 07/07/11 Anxiety state, unspecified Ascending aorta dilatation (HCC) 10/14/2015 CT Chest 4.5X3.96cm BENIGN NEOPLASM LG BOWEL 05/08/2005 colon polyps Benign prostatic hyperplasia with urinary retention CAD (coronary artery disease) 08/22/2010 s/p drug eluting stent placement (2) Carotid artery occlusion, right MRI 07/04/11; MRA 07/07/11 Centrilobular emphysema (HCC) 09/25/2022 Depressive disorder, not elsewhere classified Disorder of bone and cartilage, unspecified Elevated prostate specific antigen (PSA) Essential hypertension, benign GASTROINTEST HEMORR NOS 05/08/2005 Hearing loss in left ear Dr. 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 azithromycin (ZITHROMAX) 500 mg tablet Take 500 mg by mouth once daily. predniSONE (DELTASONE) 20 mg tablet Take 20 mg by mouth two times a day. clonazePAM (KLONOPIN) 1 mg tablet Take 1 tablet by mouth daily at bedtime. May also take 1 tablet once daily as needed. Do all this for 90 days. ipratropium bromide (ATROVENT) 42 mcg (0.06 %) nasal spray Use 2 Sprays in the nose four times daily as needed. fluticasone (FLONASE) 50 mcg/actuation nasal spray Use 2 Sprays in each nostril once daily as needed. Rinse mouth after use. traZODone (DESYREL) 100 mg tablet Take 1-2 tablets by mouth daily at bedtime. ([facility]) psyllium husk (KONSYL SUGAR-FREE) 6 gram/6 gram powd Take 1 Scoop by mouth once daily as needed. nitroglycerin sublingual (NITROQUICK) 0.4 mg SL tablet Dissolve 1 tablet under the tongue as needed. FOR CHEST PAIN. IF NO RELIEF CALL 911 levothyroxine (SYNTHROID) 50 mcg tablet Currently taking 1 pill daily except 1 day a week takes 2 pills (Sunday) ([facility]; dose [facility] to one [facility] by [facility]) (Patient taking differently: Currently taking 1 pill daily except 1 day a week takes 2 pills on Sunday) docusate sodium (COLACE) 100 mg capsule Take 1 capsule by mouth twice daily as needed for Constipation. (Patient not taking: Reported on 01/01/2024) atorvastatin (LIPITOR) 40 mg tablet Take 1 tablet by mouth once daily. [facility]. [facility]) famotidine (PEPCID) 40 mg tablet Take 1 tablet by mouth twice daily. amLODIPine (NORVASC) 10 mg tablet Take 1 tablet by mouth once daily. 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 Cruz) losartan (COZAAR) 100 mg tablet Take 1 tablet by mouth once daily. Aspirin 81 mg ORAL Tab Take 81 mg by mouth once daily. No current facility-administered medications for this visit. Review of Systems Objective BP 134/66 (BP Site: Right Arm, BP Position: Sitting, BP Cuff Size: Regular Adult) Pulse (!) 57 Temp 36.6 C (97.9 F) Resp 12 Ht 172.7 cm (5' 8) Wt 73 kg (161 lb) SpO2 98% BMI 24.48 kg/m Physical Exam Vitals reviewed. Constitutional: Appearance: Normal appearance. Eyes: Conjunctiva/sclera: Conjunctivae normal. Cardiovascular: Rate and Rhythm: Normal rate and regular rhythm. Heart sounds: Normal heart sounds. Pulmonary: Effort: Pulmonary effort is normal. Breath sounds: Normal breath sounds. Abdominal: General: Abdomen is flat. Bowel sounds are normal. There is no distension. Palpations: Abdomen is soft. Tenderness: There is no abdominal tenderness. There is no guarding or rebound. Skin: General: Skin is warm and dry. Neurological: General: No focal deficit present. Mental Status: He is alert and oriented to person, place, and time. Psychiatric: Mood and Affect: Mood normal. Behavior: Behavior normal. Thought Content: Thought content normal. Judgment: Judgment normal. Assessment and Plan Encounter Diagnosis ICD-10-CM 1. Acute bronchitis, unspecified organism J20.9 LUNG VOLUMES LUNG DIFFUSION CAPACITY (DLCO) SPIROMETRY - BASELINE AND POST DILATOR Improving; would do PFTs to see whether has COPD. 2. Psychophysiological insomnia F51.04 clonazePAM (KLONOPIN) 1 mg tablet Continue management with clonazepam. Effective without adverse effects 3. Constipation, unspecified constipation type K59.00 Since discharged home. Discussed management 4. Chronic cough R05.3 LUNG VOLUMES LUNG DIFFUSION CAPACITY (DLCO) SPIROMETRY - BASELINE AND POST DILATOR Discussed evaluation including PFTs. Further evaluation and treatment as indicated 5. Hyperinflation of lungs R09.89 LUNG VOLUMES LUNG DIFFUSION CAPACITY (DLCO) SPIROMETRY - BASELINE AND POST DILATOR seen on CXR 6. SANDHU (dyspnea on exertion) R06.09 LUNG VOLUMES LUNG DIFFUSION CAPACITY (DLCO) SPIROMETRY - BASELINE AND POST DILATOR PFTs as discussed. 7. Anxiety F41.9 clonazePAM (KLONOPIN) 1 mg tablet Stable with present management. No changes Above issues addressed with patient. Patient involved in shared decision making for management of medical issues. History and medications reviewed. Epic updated as needed Refills and/or prescriptions taken care of and meds adjusted as indicated after reviewed history, exam and labs. Health Maintenance reviewed. Updated record and/or ordered tests as recorded. Encouraged on efforts at healthy diet and regular exercise and adequate sleep. Yuval Dorantes MD documented in this encounter [facility] 01-30-2024 Telephone encounter Note Patient reports last BM 1 week ago. No abdominal pain. Reviewed protocol recommendations with patient. Protocol recommends see provider in 24 hours. Patient agreeable. Scheduled appt. Reason for Disposition Last bowel movement (BM) > 4 days ago Answer Assessment - Initial Assessment Questions 1. STOOL PATTERN OR FREQUENCY: Patient reports he is having constipation for 1 week. Usually has BM every other day. 2. STRAINING: Sometimes has to strain. 3. RECTAL PAIN: Not usually 4. STOOL COMPOSITION: Last stool started hard but then it flowed. 5. BLOOD ON STOOLS: Occassionally has blood in stools- having problems with his prostate- seeing urology for this. 6. CHRONIC CONSTIPATION: Takes colace fiber to help with constipation and it usually helps, but not this time. 7. CHANGES IN DIET OR HYDRATION: No changes in diet. Drinks 4 cups water daily, plus coffee, tea, and a soda daily. Recently had overnight stay in [facility] on 01-23-24, for COPD flare up- prednisone and inhaler were prescribed at discharge. 8. MEDICINES: No narcotics. Does klonopin and trazedone. 9. LAXATIVES: Uses colace fiber but it's not helping. 10. ACTIVITY: Works around house but doesn't exercise- states he could walk a little more than he does. 11. CAUSE: Doesn't know. 12. OTHER SYMPTOMS: No abdominal pain. Stomach is a little bigger but not bloated. No nausea or vomiting. 13. MEDICAL HISTORY: No rectal history. Has had colonoscopies. Last 4 or 5 colonoscopies were clear. 14. : N/A Protocols used: [id number] [facility] 01-30-2024 Miscellaneous Notes Patient reports last BM 1 week ago. No abdominal pain. Reviewed protocol recommendations with patient. Protocol recommends see provider in 24 hours. Patient agreeable. Scheduled appt. Reason for Disposition Last bowel movement (BM) > 4 days ago Answer Assessment - Initial Assessment Questions 1. STOOL PATTERN OR FREQUENCY: Patient reports he is having constipation for 1 week. Usually has BM every other day. 2. STRAINING: Sometimes has to strain. 3. RECTAL PAIN: Not usually 4. STOOL COMPOSITION: Last stool started hard but then it flowed. 5. BLOOD ON STOOLS: Occassionally has blood in stools- having problems with his prostate- seeing urology for this. 6. CHRONIC CONSTIPATION: Takes colace fiber to help with constipation and it usually helps, but not this time. 7. CHANGES IN DIET OR HYDRATION: No changes in diet. Drinks 4 cups water daily, plus coffee, tea, and a soda daily. Recently had overnight stay in [facility] on 01-23-24, for COPD flare up- prednisone and inhaler were prescribed at discharge. 8. MEDICINES: No narcotics. Does klonopin and trazedone. 9. LAXATIVES: Uses colace fiber but it's not helping. 10. ACTIVITY: Works around house but doesn't exercise- states he could walk a little more than he does. 11. CAUSE: Doesn't know. 12. OTHER SYMPTOMS: No abdominal pain. Stomach is a little bigger but not bloated. No nausea or vomiting. 13. MEDICAL HISTORY: No rectal history. Has had colonoscopies. Last 4 or 5 colonoscopies were clear. 14. : N/A Protocols used: [id number] documented in this encounter [facility] 01-25-2024 Telephone encounter Note Kylie called to notify us that patient was admitted into the hospital for a COPD flare-up and accidentally took his levoflexan instead of the zithromicin. Biopsy needs rescheduled and she will call back when she is with the patient so they can get it rescheduled and a new script for levoflexan will need to be written. [facility] 01-25-2024 Miscellaneous Notes Kylie called to notify us that patient was admitted into the hospital for a COPD flare-up and accidentally took his levoflexan instead of the zithromicin. Biopsy needs rescheduled and she will call back when she is with the patient so they can get it rescheduled and a new script for levoflexan will need to be written. documented in this encounter [facility] 01-24-2024 Note [facility] Medical Records Department [address] [place] [address] Discharge Summary 01/24/24 1223 MR#: [id number] Acct: [id number] Name: SHASHANK ESPINOZA Rep #: [id number] : 1945 79 From: Shane Pineda DO PCP: Dr. Yuval Dorantes MD Status:DIS DARRIUS Location: [id number] Providers Date of Admission: 01/23/24 Date of Discharge: 01/24/24 Primary Care Physician: Dr. Yuval Dorantes MD Reason For Visit: COPD Diagnosis Discharge Diagnosis (1) COPD exacerbation: Status: Chronic Code(s): J44.1 - Chronic obstructive pulmonary disease with (acute) exacerbation Plan 1. Acute exacerbation of COPD #2 coronary artery disease #3 essential hypertension #4 hypothyroidism Medications at Discharge Home Medications losartan 100 mg tablet 100 mg PO DAILY Blood pressure 10/14/15 amlodipine 10 mg tablet 10 mg PO DAILY heart 12/04/18 atorvastatin 40 mg tablet 40 mg PO QHS cholesterol 12/04/18 famotidine 40 mg tablet 40 mg PO BID allergies 12/04/18 levothyroxine 50 mcg tablet 50 mcg PO DAILY thyroid 12/04/18 nitroglycerin 0.4 mg sublingual tablet 0.4 mg sublingual Q5-15M PRN Chest Pain 12/04/18 fluticasone propionate 50 mcg/actuation nasal spray,suspension (Flonase Allergy Relief) 2 spray intranasal DAILY PRN seasonal allergies 12/30/19 trazodone 100 mg tablet 200 mg PO QHS for sleep 12/30/19 clonazepam 1 mg tablet 1 mg PO BID PRN Insomnia 07/04/21 aspirin 81 mg tablet,delayed release (Adult Aspirin Regimen) 81 mg PO DAILY 07/11/22 albuterol sulfate 90 mcg/actuation aerosol inhaler 2 puff inhalation Q6H PRN shortness of breath or wheezing #8.5 grams 01/24/24 azithromycin 500 mg tablet (Zithromax) 500 mg PO DAILY 3 days #3 tabs 01/24/24 prednisone 20 mg tablet 20 mg PO BID #14 tabs 01/24/24 Hospital Course Operations None Procedures None Summary of Care Provided Minutes Spent on Discharge: 31 Hospital Course: 79-year-old white male was seen in the emergency room at [facility] with complaints of shortness of breath. Patient states he was recently diagnosed with COPD and for the last week he had been feeling more short of breath. Labs obtained showed a normal CBC, patient's chemistry profile was unremarkable, beta natruretic peptide was 14.6. Patient's chest x-ray showed no acute abnormality, CT of the chest was obtained which showed scarring at the lung bases and hyperinflation suggesting COPD. Patient was placed into observation status on MedSurg 3, he was placed on bronchodilators and IV corticosteroids, patient's pulse ox was monitored. Patient improved during his hospitalization and did not require oxygen at the time of discharge from the hospital. Patient was seen and examined on 01/24/2024: On examination he appeared in good health and spirits. Vital signs as documented. Skin warm and dry and without overt rashes. Neck without JVD, neck was supple, trachea midline, thyroid was normal. Lungs clear bilaterally, normal air movement was noted. Heart exam notable for regular rhythm, normal sounds and absence of murmurs, rubs or gallops. Abdomen unremarkable and without evidence of organomegaly, masses, or abdominal aortic enlargement. Bowel sounds are present, abdomen is not distended. Extremities nonedematous, no cyanosis was noted, no clubbing was noted. Neuro: Cranial nerves II through XII are grossly intact, no focal motor deficits were noted, sensation to light touch and pinprick intact, motor exam 5/5 throughout. Psych: Patient is alert and oriented x3, he does not appear anxious or depressed, he does not appear agitated. Patient was discharged home in stable condition on 01/24/2024 Weight / BMI Weight Weight: 73.3 kg Body Mass Index (BMI) 23.1 ABG / Lab / Microbiology Data 01/24/24 06:55 01/24/24 06:55 Laboratory: Laboratory Results - last 24 hr 01/24/24 06:55: WBC 10.6, RBC 5.15, Hgb 15.8, Hct 46.3, MCV 89.9, MCH 30.7, MCHC 34.1, RDW Std Deviation 42.4, RDW Coeff of Jacky 12.8, Plt Count 175, MPV 10.6, Immature Gran % (Auto) 0.300, Neut % (Auto) 88.8 H, Lymph % (Auto) 8.3 L, [place] % (Auto) 2.5, Eos % (Auto) 0.0, Baso % (Auto) 0.1, A bsolute Neuts (auto) 9.4 H, Absolute Lymphs (auto) 0.88, Nucleated RBC % 0, Sodium 140, Potassium 3.7, Chloride 109 H, Carbon Dioxide 24.0, Anion Gap 7, BUN 16, Creatinine 1.12, Estim Creat Clear Calc 57.03, Est GFR (MDRD) Af Amer 82, Est GFR (MDRD) Non-Af 68, BUN/Creatinine Ratio 14.3, Glucose 151 H, Calcium 9.2, Phosphorus 3.4, Magnesium 2.2 Microbiology: Microbiology 01/23/24 14:55 Mucosa - Nasopharyngeal Respiratory Panel (PCR) - Final D/C Instructions Discharge Diet: No restrictions Weight Bearing Status: Full weight bearing Meaningful Use Info Meaningful Use Meaningful Use Diagnoses (Choose all that apply): None applicable Ischemic Stroke Statin Dosing Therapy R (more content not included)... [facility] 01-03-2024 Telephone encounter Note Advised patient via My Chart. [facility] 01-03-2024 Miscellaneous Notes Advised patient via My Chart. Rx sent Images from the original note were not included. An Henley Jr., MD Shook, Janelle, ALBERT Ok to schedule ----- Message ----- From: Porsha Meadows PA-C Sent: 01/01/2024 5:51 PM EDT To: An Henley Jr., MD; Mila Fenton Patient has PSA 8.7 and IsoPSA 13.4% and would he needs a biopsy at [place] # [phone] Spoke with patient and he already got set with Dr. Schulz for 01-30-2024 and going to keep that appt. I did advise that he can do biopsy and if needs follow up he can refer to Dr. Henley. Dr. Schulz pended the order you have been doing. Sign if OK. documented in this encounter [facility] 01-03-2024 Telephone encounter Note Rx sent [facility] 01-03-2024 Telephone encounter Note Images from the original note were not included. An Henley Jr., MD Shook, Janelle, RN Ok to schedule ----- Message ----- From: Porsha Meadows PA-C Sent: 01/01/2024 5:51 PM EDT To: An Henley Jr., MD; Mila Fenton Patient has PSA 8.7 and IsoPSA 13.4% and would he needs a biopsy at [place] # [phone] Spoke with patient and he already got set with Dr. Schulz for 01-30-2024 and going to keep that appt. I did advise that he can do biopsy and if needs follow up he can refer to Dr. Henley. Dr. Schulz pended the order you have been doing. Sign if OK. [facility] 01-01-2024 Note HNO ID: [id number] Author: PORSHA MEADOWS PA-C Service: ? Author Type: Physician Agronomy Instructor Type: Progress Notes Filed: 01/01/2024 22:00 Note Text: [facility] EST PATIENT CLINIC NOTE SERVICE DATE: January 01, 2024 NAME: Shashank Espinoza CHIEF COMPLAINT: Elevated PSA HISTORY OF PRESENT ILLNESS: Shashank Espinoza is a 78 year old male an established patient following up for Elevated PSA The patient reports he and his daughter are here to discuss recent elevated PSA and IsoPSA Review of the tests in detail and recommendation of prostate biopsy and will get this set up at [place] PSA - 8.32 IsoPSA 13.4 % TPSA Results 8.760 LUTS: None currently LABS: PSA (ng/mL) Date Value 12/12/2023 8.32 06/27/2022 5.84 11/30/2020 4.28 06/08/2020 5.0 02/08/2016 2.32 MEDICATIONS: clonazePAM (KLONOPIN) 1 mg tablet Take 1 tablet by mouth daily at bedtime. May also take 1 tablet once daily as needed. Do all this for 90 days. traZODone (DESYREL) 100 mg tablet Take 1-2 tablets by mouth daily at bedtime. ([facility]) psyllium husk (KONSYL SUGAR-FREE) 6 gram/6 gram powd Take 1 Scoop by mouth once daily as needed. nitroglycerin sublingual (NITROQUICK) 0.4 mg SL tablet Dissolve 1 tablet under the tongue as needed. FOR CHEST PAIN. IF NO RELIEF CALL 911 levothyroxine (SYNTHROID) 50 mcg tablet Currently taking 1 pill daily except 1 day a week takes 2 pills (Sunday) ([facility]; dose [facility] to one pill daily by [facility]) (Patient taking differently: Currently taking 1 pill daily except 1 day a week takes 2 pills on Sunday) atorvastatin (LIPITOR) 40 mg tablet Take 1 tablet by mouth once daily. [facility]. ([facility]) famotidine (PEPCID) 40 mg tablet Take 1 tablet by mouth twice daily. amLODIPine (NORVASC) 10 mg tablet Take 1 tablet by mouth once daily. ([place] Pra[place] senior mechanical engineer increased dose--Dr. Cruz) losartan (COZAAR) 100 mg tablet Take 1 tablet by mouth once daily. Aspirin 81 mg ORAL Tab Take 81 mg by mouth once daily. ipratropium bromide (ATROVENT) 42 mcg (0.06 %) nasal spray Use 2 Sprays in the nose four times daily as needed. fluticasone (FLONASE) 50 mcg/actuation nasal spray Use 2 Sprays in each nostril once daily as needed. Rinse mouth after use. docusate sodium (COLACE) 100 mg capsule Take 1 capsule by mouth twice daily as needed for Constipation. 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 MRA 07/07/11 Anxiety state, unspecified Ascending aorta dilatation (HCC) 10/14/2015 CT Chest 4.5X3.96cm BENIGN NEOPLASM LG BOWEL 05/08/2005 colon polyps Benign prostatic hyperplasia with urinary retention CAD (coronary artery disease) 08/22/2010 s/p drug eluting stent placement (2) Carotid artery occlusion, right MRI 07/04/11; MRA 07/07/11 Centrilobular emphysema (HCC) 09/25/2022 Depressive disorder, not elsewhere classified Disorder of bone and cartilage, unspecified Elevated prostate specific antigen (PSA) Essential hypertension, benign GASTROINTEST HEMORR NOS 05/08/2005 Hearing loss in left ear Dr. 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 PHYSICAL EXAMINATION: Blood pressure 98/68, pulse 66, temperature 36.8 ?C (98.3 ?F), temperature source Temporal, resp. rate 12, height 172.7 cm (5' 8), weight 75.7 kg (166 lb 12.8 oz), SpO2 94%. GENERAL: WNL nutrition, no deformities, healthy appearing PROBLEM LIST REVIEW: Yes LABS: Results for orders placed or performed in visit on 12/12/23 PSA/PROSTSPECAG DIAG Result Value Ref Range PSA 8.32 (H) <2.60 ng/mL ISOPSA ASSAY FOR UROLOGY USE ONLY Result Value Ref Range IsoPSA 13.4 TPSA Results 8.760 Interpretation View results in Scanned Documents link when available. PROCEDURES: PVR: 44 ml ASSESSMENT/PLAN: 1. Elevated prostate specific antigen (PSA) - ICD9: 790.93, ICD10: R97.20 > IsoPSA -13.4% > PSA - 8.32 - POST VOID RESIDUAL - PROSTATE BIOPSY GUKI 1 New Condition: with unknown prognosis; with monitoring with labs and follow-up visits 1 Testing Recommendations: Ordered today; biopsy > Message sent for scheduling Prostate Biopsy at [place] ENRIQUE Richard, EDWIGE, PAVianeyC [facility] 01-01-2024 History of Present illness Narrative Images from the original note were not included. [facility] EST PATIENT CLINIC NOTE SERVICE DATE: January 01, 2024 NAME: Shashank Espinoza CHIEF COMPLAINT: Elevated PSA HISTORY OF PRESENT ILLNESS: Shashank Espinoza is a 78 year old male an established patient following up for Elevated PSA The patient reports he and his daughter are here to discuss recent elevated PSA and IsoPSA Review of the tests in detail and recommendation of prostate biopsy and will get this set up at [place] PSA - 8.32 IsoPSA 13.4 % TPSA Results 8.760 LUTS: None currently LABS: PSA (ng/mL) Date Value 12/12/2023 8.32 06/27/2022 5.84 11/30/2020 4.28 06/08/2020 5.0 02/08/2016 2.32 MEDICATIONS: clonazePAM (KLONOPIN) 1 mg tablet Take 1 tablet by mouth daily at bedtime. May also take 1 tablet once daily as needed. Do all this for 90 days. traZODone (DESYREL) 100 mg tablet Take 1-2 tablets by mouth daily at bedtime. (Get through [place] now) psyllium husk (KONSYL SUGAR-FREE) 6 gram/6 gram powd Take 1 Scoop by mouth once daily as needed. nitroglycerin sublingual (NITROQUICK) 0.4 mg SL tablet Dissolve 1 tablet under the tongue as needed. FOR CHEST PAIN. IF NO RELIEF CALL 911 levothyroxine (SYNTHROID) 50 mcg tablet Currently taking 1 pill daily except 1 day a week takes 2 pills (Sunday) ([facility]; dose [facility] to one pill [facility] by [facility]) (Patient taking differently: Currently taking 1 pill daily except 1 day a week takes 2 pills on Sunday) atorvastatin (LIPITOR) 40 mg tablet Take 1 tablet by mouth once daily. For cholesterol. ([facility]) famotidine (PEPCID) 40 mg tablet Take 1 tablet by mouth twice daily. amLODIPine (NORVASC) 10 mg tablet Take 1 tablet by mouth once daily. 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 Cruz) losartan (COZAAR) 100 mg tablet Take 1 tablet by mouth once daily. Aspirin 81 mg ORAL Tab Take 81 mg by mouth once daily. ipratropium bromide (ATROVENT) 42 mcg (0.06 %) nasal spray Use 2 Sprays in the nose four times daily as needed. fluticasone (FLONASE) 50 mcg/actuation nasal spray Use 2 Sprays in each nostril once daily as needed. Rinse mouth after use. docusate sodium (COLACE) 100 mg capsule Take 1 capsule by mouth twice daily as needed for Constipation. 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 MRA 07/07/11 Anxiety state, unspecified Ascending aorta dilatation (HCC) 10/14/2015 CT Chest 4.5X3.96cm BENIGN NEOPLASM LG BOWEL 05/08/2005 colon polyps Benign prostatic hyperplasia with urinary retention CAD (coronary artery disease) 08/22/2010 s/p drug eluting stent placement (2) Carotid artery occlusion, right MRI 07/04/11; MRA 07/07/11 Centrilobular emphysema (HCC) 09/25/2022 Depressive disorder, not elsewhere classified Disorder of bone and cartilage, unspecified Elevated prostate specific antigen (PSA) Essential hypertension, benign GASTROINTEST HEMORR NOS 05/08/2005 Hearing loss in left ear Dr. 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 PHYSICAL EXAMINATION: Blood pressure 98/68, pulse 66, temperature 36.8 C (98.3 F), temperature source Temporal, resp. rate 12, height 172.7 cm (5' 8), weight 75.7 kg (166 lb 12.8 oz), SpO2 94%. GENERAL: WNL nutrition, no deformities, healthy appearing PROBLEM LIST REVIEW: Yes LABS: Results for orders placed or performed in visit on 12/12/23 PSA/PROSTSPECAG DIAG Result Value Ref Range PSA 8.32 (H) <2.60 ng/mL ISOPSA ASSAY FOR UROLOGY USE ONLY Result Value Ref Range IsoPSA 13.4 TPSA Results 8.760 Interpretation View results in Scanned Documents link when available. PROCEDURES: PVR: 44 ml ASSESSMENT/PLAN: 1. Elevated prostate specific antigen (PSA) - ICD9: 790.93, ICD10: R97.20 > IsoPSA -13.4% > PSA - 8.32 - POST VOID RESIDUAL - PROSTATE BIOPSY GUKI 1 New Condition: with unknown prognosis; with monitoring with labs and follow-up visits 1 Testing Recommendations: Ordered today; biopsy > Message sent for scheduling Prostate Biopsy at [place] ENRIQUE Richard MT, PA-C Verified name and date of . CC Post Void Residual HPI: Shashank Espinoza is a 78 year old male. The patient is here now for an appointment with ENRIQUE Richard MT, PALAURITA. Procedure: Explained procedure to patient and verbalizes understanding. Performed a PVR. Patient states unable to urinate at this time. States he went approximately 30 minutes prior. Results of scan: 44 mL The patient tolerated the procedure well. Plan: Appointment with Porsha. documented in this encounter [facility] 01-01-2024 Note HNO ID: [id number] Author: LEELEE LYON LPN Service: ? Author Type: LICENSED NURSE Type: Progress Notes Filed: 01/01/2024 22:00 Note Text: Verified name and date of . CC Post Void Residual HPI: Shashank Espinoza is a 78 year old male. The patient is here now for an appointment with ENRIQUE Richard MT, PALAURITA. Procedure: Explained procedure to patient and verbalizes understanding. Performed a PVR. Patient states unable to urinate at this time. States he went approximately 30 minutes prior. Results of scan: 44 mL The patient tolerated the procedure well. Plan: Appointment with Porsha. [facility] 12-17-2023 Telephone encounter Note Patient notified of results and provider's instructions. Patient verbalizes understanding. Patient wishes to discuss further. Patient sent to scheduling to schedule follow up. Sole Oglesby LPN [facility] Work Phone: 12-17-2023 Miscellaneous Notes Patient notified of results and provider's instructions. Patient verbalizes understanding. Patient wishes to discuss further. Patient sent to scheduling to schedule follow up. Sole Oglesby LPN Please notify patient that his IsoPSA came back at 13.4 % and a PSA of 8.76 The IsoPSA being greater than 6.1% indicates there is a risk of high grade prostate cancer in the next 10 years So a prostate biopsy is recommended. Orders have been placed for biopsy if he wished to have biopsy I will arrange procedure with staff Urologist If he wishes to discuss results I am happy to discuss at visit. ENRIQUE Richard MT, PA-C Results on ISOPSA available. Please review and advise. Maru Faulkner MA Pts neice would like a call regarding 12/12/23 lab results for pt. documented in this encounter [facility] 12-14-2023 Telephone encounter Note Please notify patient that his IsoPSA came back at 13.4 % and a PSA of 8.76 The IsoPSA being greater than 6.1% indicates there is a risk of high grade prostate cancer in the next 10 years So a prostate biopsy is recommended. Orders have been placed for biopsy if he wished to have biopsy I will arrange procedure with staff Urologist If he wishes to discuss results I am happy to discuss at visit. ENRIQUE Richard MT, PA-C [facility] Work Phone: 12-14-2023 Telephone encounter Note Results on ISOPSA available. Please review and advise. Maru Faulkner MA [facility] 12-14-2023 Telephone encounter Note Pts neice would like a call regarding 12/12/23 lab results for pt. [facility] Work Phone: 12-12-2023 Telephone encounter Note Pt's niece notified and pt will come in for testing. Maru Faulkner MA [facility] 12-12-2023 Miscellaneous Notes Pt's niece notified and pt will come in for testing. Maru Faulkner MA Yes, IsoPSA orders placed ENRIQUE Richard MT, PA-C Enedelia and Shashank called again today to asking if a IsoPSA needed to be ordered. Shantel Kelley RN Patient's niece called in informing us that his PSA was 7.04 on blood work that was recently done [facility] [place] Enedelia asking if a IsoPSA needed to be ordered. Per last office note: > 6 month Appt w/ B. ENRIQUE Meadows MT PAVianeyC with PSA prior if increased from 6.06 he will need IsoPSA prior to that 6 month appt as well. Patient asking that Enedelia be called with update/orders. She can be reached at [phone]. Shantel Kelley RN documented in this encounter [facility] 12-11-2023 Telephone encounter Note Yes, IsoPSA orders placed ENRIQUE Richard MT PAFrank [facility] 12-11-2023 Telephone encounter Note Enedelia and Shashank called again today to asking if a IsoPSA needed to be ordered. Shantel Kelley RN [facility] 12-05-2023 Telephone encounter Note Patient's niece called in informing us that his PSA was 7.04 on blood work that was recently done at the [place]. Enedelia asking if a IsoPSA needed to be ordered. Per last office note: > 6 month Appt w/ B. ENRIQUE Meadows MT PA-C with PSA prior if increased from 6.06 he will need IsoPSA prior to that 6 month appt as well. Patient asking that Enedelia be called with update/orders. She can be reached at [phone]. Shantel Kelley RN [facility] 11-08-2023 Telephone encounter Note Images from the original note were not included. Carla Ulrich MD to Shashank Espinoza Chest CT shows stable small nodules. I would recommend a repeat CT in one year. Pt notified and verbalizes understanding. Maru Faulkner MA [facility] 11-08-2023 Miscellaneous Notes Images from the original note were not included. Carla Ulrich MD to Shashank Espinoza Chest CT shows stable small nodules. I would recommend a repeat CT in one year. Pt notified and verbalizes understanding. Maru Faulkner MA Pt and EC called to get results. She is wondering the results of the CT. documented in this encounter [facility] 11-07-2023 Telephone encounter Note Pt and EC called to get results. She is wondering the results of the CT. [facility] Work Phone: 10-31-2023 History of Present illness Narrative Radiology Service Progress Note PATIENT NAME: Shashank Espinoza DATE OF SERVICE: October 31, 2023 TIME: 11:17 AM PATIENT IDENTITY VERIFICATION COMPLETED USING TWO (2) IDENTIFIERS: Name and Date of confirmed by patient verbally. FALL SCREENING: Has the patient had 2 falls in the last year or 1 fall with injury or currently using an Ambulatory Assistive Device (Walker, Cane, Wheelchair, Crutches, etc.)? No PATIENT GENDER DATA: Male PATIENT RELEVANT IMPLANT DATA REVIEWED: Yes PATIENT PRESENTS WITH AN IMPLANTABLE OR ATTACHED SUPERVISOR LABORATORY: No RADIOLOGY DEPARTMENT: CT; Exam(s) Completed: Chest PERIPHERAL IV DATA: Not applicable SIGNED BY: RT Angelo(R) October 31, 2023 11:17 AM documented in this encounter [facility] 10-15-2023 Miscellaneous Notes Spoke with Shashank and he gave me permission to speak to his niece Enedelia Hill regarding plans for updated chest CT. Reviewing his films from [facility], [place] in December 2022 for his ascending aortic aneurysm shows 2 nodules in his right lower lobe (not mentioned in report). One is 2 mm and has been present in the past but the other is located in the fissure which is new from 2021. This may represent an intrapulmonary lymph node but in light of his emphysema and smoking history early carcinoma must be excluded. documented in this encounter [facility] 10-15-2023 Miscellaneous Notes Patient's niece Enedelia called office stating patient wanted her to call to ask about CT. This nurse reviewed Dr. Ulrich's SIMEON with nifaustino (ok per Epic to speak to Enedelia Hill). Reviewed plan of note with kylie and she verbalized understanding. Pt called in stating he was returning Dr. Avelar call. I advised patient I would let Dr. Ulrich know and she could call him back when she is available. Advised pt to stay by the phone. [phone].Sangeeta De Paz RN documented in this encounter [facility] 10-15-2023 Instructions Carla Ulrich MD - 10/15/2023 9:47 AM EDT If chest CT not done in December, will make arrangements for testing documented in this encounter [facility] 10-15-2023 History of Present illness Narrative Images from the original note were not included. . [facility] [place] Note Patient name: Shashank Espinoza PCP: Yuval Dorantes MD CC: Yearly follow-up HPI: Shashank Espinoza 78 year old male former 23 pack year smoker, quitting in 2010 with PMH significant for anxiety/depression, CAD s/p stent, PAD, hypothyroidism, HLD, TIA, ascending aortic aneurysm and emphysema. PFT with small airways obstruction, alpha 1 antitrypsin level normal. Presents today for yearly follow-up. Although patient qualifies for lung cancer screening, he has yearly chest CT for surveillance of his ascending aortic aneurysm. Last CT performed at [facility] in December 2022 read as stable aneurysm. To my view he has a new right lower lobe nodule possible intrapulmonary lymph node. This examination was performed at this visit with me in September of last year. From a respiratory standpoint, he states that he has been doing well. He denies any shortness of breath, chest pain, wheezing. He has occasional cough but no significant phlegm production. He remains tobacco free. He has not been ill with any upper respiratory infection nor required hospitalization for his pulmonary disease. He is not on controller inhaler therapy due to his lack of symptoms. 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 May also take 1 tablet once daily as needed. Do all this for 90 days. ipratropium bromide (ATROVENT) 42 mcg (0.06 %) nasal spray Use 2 Sprays in the nose four times daily as needed. fluticasone (FLONASE) 50 mcg/actuation nasal spray Use 2 Sprays in each nostril once daily as needed. Rinse mouth after use. traZODone (DESYREL) 100 mg tablet Take 1-2 tablets by mouth daily at bedtime. ([facility]) nitroglycerin sublingual (NITROQUICK) 0.4 mg SL tablet Dissolve 1 tablet under the tongue as needed. FOR CHEST PAIN. IF NO RELIEF CALL 911 levothyroxine (SYNTHROID) 50 mcg tablet Currently taking 1 pill daily except 1 day a week takes 2 pills (Sunday) ([facility]; dose [facility] to one pill daily by [facility]) (Patient taking differently: Currently taking 1 pill daily except 1 day a week takes 2 pills on Sunday) docusate sodium (COLACE) 100 mg capsule Take 1 capsule by mouth twice daily as needed for Constipation. atorvastatin (LIPITOR) 40 mg tablet Take 1 tablet by mouth once daily. For cholesterol. ([facility]) famotidine (PEPCID) 40 mg tablet Take 1 tablet by mouth twice daily. amLODIPine (NORVASC) 10 mg tablet Take 1 tablet by mouth once daily. 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 Cruz) losartan (COZAAR) 100 mg tablet Take 1 tablet by mouth once daily. Aspirin 81 mg ORAL Tab Take 81 mg by mouth once daily. psyllium husk (KONSYL SUGAR-FREE) 6 gram/6 gram powd Take 1 Scoop by mouth once daily as needed. Social History Tobacco Use Smoking status: Former Packs/day: 1.00 Years: 23.00 Additional pack years: 0.00 Total pack years: 23.00 Types: Cigarettes Quit date: 08/22/2010 Years since quittin.1 Smokeless tobacco: Never Tobacco comments: Started at age 42 Vaping Use Vaping Use: Never used Substance Use Topics Alcohol use: Not Currently Drug use: Not Currently Types: Marijuana FAMILY HISTORY Problem Relation Age of Onset Emphysema Father Diabetes Father heart Heart Mother mi Hypertension Mother stomach cancer other (physical problems from being in plane crash) Sister PAST SURGICAL HISTORY Procedure Laterality Date ADENOIDECTOMY PRIMARY <AGE 14 Adenoidectomy COLONOSCOPY FLX DX W/COLLJ SPEC WHEN PFRMD 09/1994, 12/2001 Colonoscopy COLONOSCOPY FLX DX W/COLLJ SPEC WHEN PFRMD 10/10/2010 Colonoscopy COLONOSCOPY FLX DX W/COLLJ SPEC WHEN PFRMD 10/03/2016 normal 10 year follow up ESOPHAGOGASTRODUODENOSCOPY TRANSORAL DIAGNOSTIC 10/10/2010 EGD LEFT HEART CATH,PERCUTANEOUS 08/23/2010 Cardiac cath, L heart [facility] PAST SURGICAL HISTORY OF 12/08/2020 Examination under anesthesia, anoscopy, biopsy SIGMOIDOSCOPY FLX DX W/COLLJ SPEC BR/WA IF PFRMD 09/11/2012 Sigmoidoscopy, flexible TONSILLECTOMY PRIMARY/SECONDARY <AGE 14 Tonsillectomy PMH, Social history, family history and surgical history reviewed and updated in EMR REVIEW OF SYSTEMS: CONSTITUTIONAL: No fevers, chills, nightsweats, unintended weight loss HEENT: Denies nasal congestion/sinus symptoms, allergy problems. CARDIOVASCULAR: No chest pain, dyspnea, palpitations, ankle edema. PULM: See HPI GI: No dysphagia/odynophagia, problematic reflux : BPH, elevated PSA INTEGUMENTARY: No new skin changes or rashes PHYSICAL EXAMINATION: BP 110/70 Pulse 72 Resp 12 Ht 5' 8 (1.73m) Wt 169 lb 6.4 oz (76.8kg) SpO2 98% BMI 25.76 kg/(m^2). General Appearance: Age-appropriate male, NAD. Skin: Skin color, texture, turgor normal, no suspicious rashes or lesions. Head: Atraumatic, no abnormalities. Eyes: Sclera, conjunctiva normal. Oropharynx: Poor dentition, upper plate, no erythema or lesions. Neck: No JVD, no masses, no adenopathy. Lungs: Not labored, hyperresonant to percussion, no wheezes or crackles. Heart: Regular rate and rhythm, no murmurs or gallop. Extremities: No edema clubbing. Assessment/Plan: 1. Centrilobular emphysema -Emphysema by imaging but pulmonary function tests preserved -No need for controller inhaler therapy -Continue abstinence from tobacco 2. Lung nodule -After patient left his appointment today I was able to fully review outside imaging including past chest CTs dating back to 2015. Patient truly has a new right lower lobe nodule, not visible on CT from 2021. -He will need updated CT of his chest 3. Former cigarette smoker -Former [id number] smoker with sequelae of emphysema -Continued abstinence Carla Ulrich MD [facility] [place] documented in this encounter [facility] 10-05-2023 Instructions Yuval Dorantes MD - 10/05/2023 3:02 PM EDT Consider TIPS FOR A BETTER NIGHT OF SLEEP BEFORE GETTING INTO BED: -Establish a regular routine for bedtime. -Create a positive sleep environment. -Relax before getting into bed. -Avoid alcohol, smoking, caffeine for at least a few hours before bedtime. -Do not go to bed unless you are sleepy. WHILE IN BED: -Turn your clock around (or cover it) and use your alarm if needed. - If you can't fall asleep in 20 minutes (based on your internal sense of time), get out of bed and do something relaxing or boring (reading, listening to music, etc). Return to bed only when sleepy. -Use your bed only for sleep and sex. IN THE MORNING AND DURING THE DAYTIME: -Wake up at the same time every morning, even on weekends. -Avoid naps during the day. -Avoid caffeinated beverages and food in the evening. -Exercise regularly but not within 4 hours of bedtime. Sleep Hygiene and Good Sleep Habits Establish a regular routine that includes going to bed and getting up at the same time every day, even on weekends. Maintaining a consistent sleep-wake cycle is the lauren to better health overall. Get an adequate amount of sleep every night. Determine the amount of sleep you need by keeping track of how long you sleep without using an alarm clock for a week. Maintain this personal sleep requirement. Go to bed when you are sleepy. If you have difficulty falling asleep or wake up shortly after going to sleep, leave the bedroom and read quietly or do some other relaxing activity. Avoid bright lights as this can cue your wake cycle. Develop sleep rituals before going to bed. Do the same things in the same order before going to bed to cue your body to slow down and relax. Avoid stress and worries at bedtime. Address tomorrow's activities, concerns, or distractions earlier in the day. Certain activities, such as listening to soft music, reading, or taking a warm bath, can help you wind down. Use your bed for sleeping and sex only. Often, doing other activities in bed like watching TV, paying bills, or working only serve to initiate worries and concerns. Let your mind associate the bed with sleeping, relaxing, and pleasure. Avoid heavy meals late in the evening; similarly, avoid going to bed hungry. A light snack, especially dairy foods, can help you sleep. Reduce your intake of caffeine and nicotine 4-6 hours before going to sleep. Stimulants interfere with your ability to fall asleep and progress into deep sleep. 200mg caffeine (a large [employer] coffee) taken at 8 AM will impair the sleep architecture that night. Avoid alcohol 4-6 hours before bedtime. As a depressant that slows brain activity, alcohol may initially make you tired, but you will end up having fragmented sleep. In addition, being tired intensifies the effects of alcohol. Alcohol also aggravates snoring and sleep apnea particularly in men. Exercise regularly. Regular exercise, even for 20 minutes, 3 times a week, promotes deep sleep. Don't nap for more than 30 minutes or after 3 PM. Avoiding naps all together will ensure that you are tired at night. Longer naps disrupt the body's ability to stay asleep. Maintain a dark, quiet room to sleep in at a temperature with which you are comfortable. Use sleeping aids conservatively, and avoid using them for more than one or two nights per month. Avoid sleeping pills altogether if you have obstructive sleep apnea because it can be a deadly combination. documented in this encounter [facility] 10-05-2023 History of Present illness Narrative This note was created using [employer]. Subjective Shashank Espinoza is a 78 year old male. Patient presents with: Follow Up: 4 month follow up SUBJECTIVE: Shashank Espinoza is a 78 year old year old gentleman here today for 4 month follow up appointment for review of medical conditions. 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 May also take 1 tablet once daily as needed. Do all this for 90 days. ipratropium bromide (ATROVENT) 42 mcg (0.06 %) nasal spray Use 2 Sprays in the nose four times daily as needed. fluticasone (FLONASE) 50 mcg/actuation nasal spray Use 2 Sprays in each nostril once daily as needed. Rinse mouth after use. traZODone (DESYREL) 100 mg tablet Take 1-2 tablets by mouth daily at bedtime. ([facility]) psyllium husk (KONSYL SUGAR-FREE) 6 gram/6 gram powd Take 1 Scoop by mouth once daily as needed. nitroglycerin sublingual (NITROQUICK) 0.4 mg SL tablet Dissolve 1 tablet under the tongue as needed. FOR CHEST PAIN. IF NO RELIEF CALL 911 levothyroxine (SYNTHROID) 50 mcg tablet Currently taking 1 pill daily except 1 day a week takes 2 pills (Sunday) ([facility]; dose decreased to one pill daily by [facility]) (Patient taking differently: Currently taking 1 pill daily except 1 day a week takes 2 pills on Sunday) docusate sodium (COLACE) 100 mg capsule Take 1 capsule by mouth twice daily as needed for Constipation. atorvastatin (LIPITOR) 40 mg tablet Take 1 tablet by mouth once daily. For cholesterol. ([facility]) famotidine (PEPCID) 40 mg tablet Take 1 tablet by mouth twice daily. amLODIPine (NORVASC) 10 mg tablet Take 1 tablet by mouth once daily. 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 Cruz) losartan (COZAAR) 100 mg tablet Take 1 tablet by mouth once daily. Aspirin 81 mg ORAL Tab Take 81 mg by mouth once daily. No current facility-administered medications for this visit. Review of Systems Objective BP (P) 118/80 (BP Site: Left Arm, BP Position: Sitting, BP Cuff Size: Regular Adult) Pulse (P) 78 Wt (P) 78.9 kg (174 lb) BMI (P) 24.97 kg/m Last 5 Encounter Wt Readings: Date: Wt: 06/19/2023 77.1 kg (170 lb) 06/15/2023 75.3 kg (166 lb) 02/02/2023 74.8 kg (165 lb) 10/06/2022 78.9 kg (174 lb) 09/25/2022 77.1 kg (170 lb) No waist measurement recorded Estimated body mass index is 24.97 kg/m (pended) as calculated from the following: Height as of 06/19/23: 177.8 cm (5' 10). Weight as of this encounter: (P) 78.9 kg (174 lb). Last 5 Encounter BP Readings: Date: BP: 06/19/2023 136/82 06/15/2023 122/72 02/02/2023 110/68 10/06/2022 108/62 09/25/2022 120/68 Physical Exam Vitals reviewed. Constitutional: Appearance: Normal appearance. Eyes: Conjunctiva/sclera: Conjunctivae normal. Cardiovascular: Rate and Rhythm: Normal rate and regular rhythm. Heart sounds: Normal heart sounds. Pulmonary: Effort: Pulmonary effort is normal. Breath sounds: Normal breath sounds. Musculoskeletal: Right lower leg: No edema. Left lower leg: No edema. Skin: General: Skin is warm and dry. Neurological: General: No focal deficit present. Mental Status: He is alert and oriented to person, place, and time. Psychiatric: Mood and Affect: Mood normal. Behavior: Behavior normal. Thought Content: Thought content normal. Judgment: Judgment normal. Assessment and Plan Encounter Diagnosis ICD-10-CM 1. Psychophysiological insomnia F51.04 clonazePAM (KLONOPIN) 1 mg tablet 2. Anxiety F41.9 clonazePAM (KLONOPIN) 1 mg tablet 3. Primary hypertension I10 Above issues addressed with patient. Patient involved in shared decision making for management of medical issues. History and medications reviewed. Epic updated as needed Refills and/or prescriptions taken care of and meds adjusted as indicated after reviewed history, exam and labs. Health Maintenance reviewed. Updated record and/or ordered tests as recorded. Encouraged on efforts at healthy diet and regular exercise and adequate sleep. Stable with control of anxiety. At this time benefits outweigh risks. Continue to monitor for adverse effects and indications for decreasing dose or tapering off. No signs of diversion or abuse of medication(s); no adverse effects. Continue present management. BP controlled. Continue present management. Yuval Dorantes MD documented in this encounter [facility] 06-19-2023 Instructions Porsha Meadows PA-C - 06/19/2023 10:08 AM EST > 6 month Appt w/ B. ENRIQUE Meadows, JEIMY GIBBONS with PSA prior if increased from 6.06 he will need IsoPSA prior to that 6 month appt as well. documented in this encounter [facility] 06-19-2023 History of Present illness Narrative Images from the original note were not included. [facility] ESTABLISHED PATIENT CLINIC NOTE Some elements copied from his previous note, which have been updated where appropriate, and all reflect current medical decision making from date of this visit. SERVICE DATE: 06/19/2023 SERVICE TIME: 10:08 AM NAME: Shashank Espinoza CHIEF COMPLAINT: Elevated PSA HISTORY OF PRESENT ILLNESS: Shashank Espinoza is a 78 year old male an established patient following up for elevated PSA of 6.06 The patient reports no new LUTS, discussed with patient at length to have IsoPSA now or to have follow-up PSA in 6 months he wants to see if his PSA goes Down again like it has in the past, he is not ready to have biopsy at this time and if he changes his mind I will order IsoPSA for him to do MORALES He is aware this can only be done at [facility] labs, otherwise I see him in 6 moths after his PSA is final in 2023 LUTS: No new LUTS LABS: Hematocrit (%) Date Value 06/27/2022 45.9 12/02/2021 47.0 06/08/2020 44.0 06/08/2020 44.0 12/11/2019 45.3 11/07/2018 45.0 PSA (ng/mL) Date Value 06/27/2022 5.84 11/30/2020 4.28 06/08/2020 5.0 02/08/2016 2.32 No results found for: TESTOST PSA (ng/mL) Date Value 06/27/2022 5.84 11/30/2020 4.28 06/08/2020 5.0 02/08/2016 2.32 Creatinine Date Value Ref Range Status 06/27/2022 1.14 0.73 - 1.22 mg/dL Final 12/02/2021 1.03 0.73 - 1.22 mg/dL Final 02/22/2021 1.16 0.73 - 1.22 mg/dL Final 06/08/2020 0.9 0.6 - 1.3 MG/DL Final 06/08/2020 0.9 0.6 - 1.3 MG/DL Final MEDICATIONS: clonazePAM (KLONOPIN) 1 mg tablet Take 1 tablet by mouth daily at bedtime. May also take 1 tablet once daily as needed. Do all this for 90 days. ipratropium bromide (ATROVENT) 42 mcg (0.06 %) nasal spray Use 2 Sprays in the nose four times daily as needed. fluticasone (FLONASE) 50 mcg/actuation nasal spray Use 2 Sprays in each nostril once daily as needed. Rinse mouth after use. traZODone (DESYREL) 100 mg tablet Take 1-2 tablets by mouth daily at bedtime. ([facility]) psyllium husk (KONSYL SUGAR-FREE) 6 gram/6 gram powd Take 1 Scoop by mouth once daily as needed. nitroglycerin sublingual (NITROQUICK) 0.4 mg SL tablet Dissolve 1 tablet under the tongue as needed. FOR CHEST PAIN. IF NO RELIEF CALL 911 levothyroxine (SYNTHROID) 50 mcg tablet Currently taking 1 pill daily except 1 day a week takes 2 pills (Sunday) ([facility]; dose [facility] to one [facility]) (Patient taking differently: Currently taking 1 pill daily except 1 day a week takes 2 pills on Sunday) docusate sodium (COLACE) 100 mg capsule Take 1 capsule by mouth twice daily as needed for Constipation. atorvastatin (LIPITOR) 40 mg tablet Take 1 tablet by mouth once daily. For cholesterol. ([facility]) famotidine (PEPCID) 40 mg tablet Take 1 tablet by mouth twice daily. amLODIPine (NORVASC) 10 mg tablet Take 1 tablet by mouth once daily. 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 Cruz) losartan (COZAAR) 100 mg tablet Take 1 tablet by mouth once daily. Aspirin 81 mg ORAL Tab Take 81 mg by mouth once daily. 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 All other systems reviewed and are negative PHYSICAL EXAMINATION: Pulse 84, temperature 36.8 C (98.3 F), temperature source Temporal, height 177.8 cm (5' 10), weight 77.1 kg (170 lb), SpO2 96%. GENERAL: WNL nutrition, no deformities, healthy appearing No change in FIDEL PROBLEM LIST REVIEW: Yes LABS: Results for orders placed or performed in visit on 02/02/23 ALBUMIN/CREAT RATIO RND UR Result Value Ref Range Creatinine, Ur Random (UCRR) 225.0 20.0 - 300.0 mg/dL Albumin, Urine Random <12.0 mg/L Albumin/Creat Ratio <5 <30 mg/g PROCEDURES: PVR: 0 ml IMPRESSION/PLAN: 78 year old male with 1. Benign prostatic hyperplasia with urinary retention - ICD9: 600.01, 788.20, ICD10: N40.1, R33.8 (primary diagnosis) 2. Elevated prostate specific antigen (PSA) - ICD9: 790.93, ICD10: R97.20 > PSA is increased again to 6.06 and we discussed at length the potential causes being BPH and Prostate Cancer Options given to have IsoPSA done today to see if a prostate biopsy is indicated or wait 6 months and repeat PSA and if it goes up again then have IsoPSA done. He prefers to have PSA in 6 months at this time since his PSA ad gone down before after it went up He is aware that hi can call and get IsoPSA ordered anytime if he changes his mind, This was made very clear top him and \he states so verbally understanding > 6 months for PSA with Follow-up after final if > 6.0 I want the IsoPSA done prior to appt. as well ENRIQUE Richard MT, PA-C Verified name and date of . CC Post Void Residual HPI: Shashank Espinoza is a 78 year old male. The patient is here now for an appointment with ENRIQUE Richard MT, PA-COV. Procedure: Explained procedure to patient and verbalizes understanding. Performed a PVR. Patient urinated and instructed to empty bladder as much as possible just prior to having PVR done using bladder ultrasound scanner. Results of scan: 0 mL The patient tolerated the procedure well. Plan: Appointment with Porsha. documented in this encounter [facility] 10-06-2022 History of Present illness Narrative This note was created using [employer]OUNDFLO[employer]. Subjective Shashank Espinoza is a 77 year old male. No chief complaint on file. SUBJECTIVE: Shashank Espinoza is a 77 year old year old gentleman 4 here today for 4 month follow up appointment for review of medical conditions. Clonazepam Rx lasts usual 2 months. Ran out of pills because RX timed out after March RX 6 months from March date. Med still helping for anxiety. Needs usually just one a day. 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 (Patient taking differently: Take 0.5-1 mg by mouth twice daily. Takes 1 tablet by mouth at bedtime, takes one time as needed during the day) traZODone (DESYREL) 100 mg tablet Take 1-2 tablets by mouth daily at bedtime. ([facility]) psyllium husk (KONSYL SUGAR-FREE) 6 gram/6 gram powd Take 1 Scoop by mouth once daily as needed. nitroglycerin sublingual (NITROQUICK) 0.4 mg SL tablet Dissolve 1 tablet under the tongue as needed. FOR CHEST PAIN. IF NO RELIEF CALL 911 levothyroxine (SYNTHROID) 50 mcg tablet Currently taking 1 pill daily except 1 day a week takes 2 pills (Sunday) ([facility]; dose [facility] to one [facility]) (Patient taking differently: Currently taking 1 pill daily except 1 day a week takes 2 pills on Sunday) docusate sodium (COLACE) 100 mg capsule Take 1 capsule by mouth twice daily as needed for Constipation. atorvastatin (LIPITOR) 40 mg tablet Take 1 tablet by mouth once daily. For cholesterol. ([facility]) famotidine (PEPCID) 40 mg tablet Take 1 tablet by mouth twice daily. amLODIPine (NORVASC) 10 mg tablet Take 1 tablet by mouth once daily. 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 Cruz) losartan (COZAAR) 100 mg tablet Take 1 tablet by mouth once daily. Aspirin 81 mg ORAL Tab Take 81 mg by mouth once daily. ipratropium bromide (ATROVENT) 42 mcg (0.06 %) nasal spray Use 2 Sprays in the nose four times daily as needed. (Patient not taking: Reported on 10/06/2022) fluticasone (FLONASE) 50 mcg/actuation nasal spray Use 2 Sprays in each nostril once daily as needed. Rinse mouth after use. (Patient not taking: No sig reported) No current facility-administered medications for this visit. Review of Systems Objective BP 108/62 Pulse 69 Temp 37.1 C (98.8 F) Resp 18 Wt 78.9 kg (174 lb) SpO2 96% BMI 26.11 kg/m Physical Exam Vitals reviewed. Constitutional: Appearance: Normal appearance. Eyes: Conjunctiva/sclera: Conjunctivae normal. Cardiovascular: Rate and Rhythm: Normal rate and regular rhythm. Heart sounds: Normal heart sounds. Pulmonary: Effort: Pulmonary effort is normal. Breath sounds: Normal breath sounds. Skin: General: Skin is warm and dry. Neurological: General: No focal deficit present. Mental Status: He is alert and oriented to person, place, and time. Psychiatric: Mood and Affect: Mood normal. Behavior: Behavior normal. Thought Content: Thought content normal. Judgment: Judgment normal. Assessment and Plan Encounter Diagnosis ICD-10-CM 1. 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 2. Psychophysiological insomnia F51.04 clonazePAM (KLONOPIN) 1 mg tablet 3. Anxiety F41.9 clonazePAM (KLONOPIN) 1 mg tablet Above issues addressed with patient. Patient involved in shared decision making for management of medical issues. History and medications reviewed. Epic updated as needed Refills and/or prescriptions taken care of and meds adjusted as indicated after reviewed history, exam and labs. Health Maintenance reviewed. Updated record and/or ordered tests as recorded. Encouraged on efforts at healthy diet and regular exercise and adequate sleep. Stable with control of anxiety. At this time benefits outweigh risks. Continue to monitor for adverse effects and indications for decreasing dose or tapering off. No signs of diversion or abuse of medication(s); no adverse effects. Continue present management. Yuval Dorantes MD documented in this encounter [facility] 09-26-2022 Miscellaneous Notes Spoke with patient directly regarding his laboratory testing from yesterday's visit. He does not have evidence of alpha-1 antitrypsin deficiency. documented in this encounter [facility] 09-25-2022 History of Present illness Narrative Images from the original note were not included. . [facility] [place] Note Patient name: Shashank Espinoza PCP: Yuval Dorantes MD Referring Physician: Mae Ray PA-C Consultation requested by Mae Ray for an opinion regarding COPD. My final recommendations will be communicated back to the requesting physician by way of shared Medical record or letter to requesting physician via US mail. CC: COPD HPI: Shashank Espinoza 77 year old male former 23 pack year smoker, quitting in 2010 with PMH significant for anxiety/depression, CAD s/p stent, PAD, hypothyroidism HLD, and recent TIA who presents for evaluation of possible COPD. CXR showed changes consistent with COPD. Patient denies any shortness of breath, wheezing, chest tightness. He does have occasional cough with mucus production related to postnasal drip. No history of recurrent bronchitis or pneumonia. Pulmonary function tests show minimal small airways obstruction. Review of CT of the chest from December 2021 obtained for aortic aneurysm shows moderate upper lobe emphysema changes. 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 Treated 3 times (twice in 90's); 3rd treatment effective ALLERGIES Allergen Reactions Prilosec [Omeprazol* Other: See Comments GI upset clonazePAM (KLONOPIN) 1 mg tablet Take 0.5-1 tablets by mouth twice daily for 60 days. (Patient taking differently: Take 0.5-1 mg by mouth twice daily. Takes 1 tablet by mouth at bedtime, takes one time as needed during the day) ipratropium bromide (ATROVENT) 42 mcg (0.06 %) nasal spray Use 2 Sprays in the nose four times daily as needed. traZODone (DESYREL) 100 mg tablet Take 1-2 tablets by mouth daily at bedtime. ([facility]) psyllium husk (KONSYL SUGAR-FREE) 6 gram/6 gram powd Take 1 Scoop by mouth once daily as needed. nitroglycerin sublingual (NITROQUICK) 0.4 mg SL tablet Dissolve 1 tablet under the tongue as needed. FOR CHEST PAIN. IF NO RELIEF CALL 911 levothyroxine (SYNTHROID) 50 mcg tablet Currently taking 1 pill daily except 1 day a week takes 2 pills (Sunday) ([facility]; dose decreased to one pill daily by [facility]) (Patient taking differently: Currently taking 1 pill daily except 1 day a week takes 2 pills on Sunday) atorvastatin (LIPITOR) 40 mg tablet Take 1 tablet by mouth once daily. For cholesterol. ([facility]) famotidine (PEPCID) 40 mg tablet Take 1 tablet by mouth twice daily. amLODIPine (NORVASC) 10 mg tablet Take 1 tablet by mouth once daily. 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 Cruz) losartan (COZAAR) 100 mg tablet Take 1 tablet by mouth once daily. Aspirin 81 mg ORAL Tab Take 81 mg by mouth once daily. fluticasone (FLONASE) 50 mcg/actuation nasal spray Use 2 Sprays in each nostril once daily as needed. Rinse mouth after use. (Patient not taking: Reported on 09/25/2022) docusate sodium (COLACE) 100 mg capsule Take 1 capsule by mouth twice daily as needed for Constipation. (Patient not taking: Reported on 09/25/2022) Social History Tobacco Use Smoking status: Former Packs/day: 1.00 Years: 23.00 Pack years: 23.00 Types: Cigarettes Quit date: 08/22/2010 Years since quittin.1 Smokeless tobacco: Never Tobacco comments: Started at age 42 Vaping Use Vaping Use: Never used Substance Use Topics Alcohol use: No Drug use: No Exposure to agent orange FAMILY HISTORY Problem Relation Age of Onset Emphysema Father Diabetes Father heart Heart Mother mi Hypertension Mother stomach cancer other (physical problems from being in plane crash) Sister PAST SURGICAL HISTORY Procedure Laterality Date ADENOIDECTOMY PRIMARY <AGE 14 Adenoidectomy COLONOSCOPY FLX DX W/COLLJ SPEC WHEN PFRMD 09/1994, 12/2001 Colonoscopy COLONOSCOPY FLX DX W/COLLJ SPEC WHEN PFRMD 10/10/2010 Colonoscopy COLONOSCOPY FLX DX W/COLLJ SPEC WHEN PFRMD 10/03/2016 normal 10 year follow up ESOPHAGOGASTRODUODENOSCOPY TRANSORAL DIAGNOSTIC 10/10/2010 EGD LEFT HEART CATH,PERCUTANEOUS 08/23/2010 Cardiac cath, L heart [facility] PAST SURGICAL HISTORY OF 12/08/2020 Examination under anesthesia, anoscopy, biopsy SIGMOIDOSCOPY FLX DX W/COLLJ SPEC BR/WA IF PFRMD 09/11/2012 Sigmoidoscopy, flexible TONSILLECTOMY PRIMARY/SECONDARY <AGE 14 Tonsillectomy PMH, Social history, family history and surgical history reviewed and updated in EMR REVIEW OF SYSTEMS: CONSTITUTIONAL: No fevers, chills, nightsweats, unintended weight loss HEENT: Denies headaches, allergy problems. Chronic sinus disease with postnasal drip EYES: No diplopia or blurry vision, itchy eyes CARDIOVASCULAR: No chest pain, dyspnea, palpitations, orthopnea, PND, edema. PULM: See HPI GI: No dysphagia/odynophagia, problematic reflux, constipation, diarrhea : No urinary complaints, including dysuria, gross hematuria or pyuria. NEURO: No new balance problems, peripheral weakness/paresthesias or numbness of concern. Recent TIA due to accelerated hypertension MUSC-SKEL: No joint pain, swelling, or erythema. PSY: Anxiety and depression INTEGUMENTARY: No new skin changes or rashes PHYSICAL EXAMINATION: BP 120/68 Pulse 68 Resp 14 Ht 5' 8.45 (1.74m) Wt 170 lb (77.1kg) SpO2 95% BMI 25.50 kg/(m^2). General Appearance: Age-appropriate male, NAD Skin: Skin color, texture, turgor normal, no suspicious rashes or lesions. Head: Normocephalic, no masses, lesions, tenderness or abnormalities. Eyes: Sclera, conjunctiva normal Oropharynx: Poor dentition, no oral lesions or posterior pharyngeal drainage. Neck: No JVD, no masses, no thyromegaly Lungs: Not labored, normal to percussion, no wheezes or crackles Heart: Regular rate and rhythm, no murmurs gallops Extremities: No edema or clubbing Musculoskeletal: No joint deformities or effusions Neurologic: Alert and oriented, no focal findings Lymph Nodes: No cervical lymphadenopathy and No supraclavicular lymphadenopathy. Assessment/Plan: 1. Centrilobular emphysema -Emphysema noted on chest imaging -No significant obstruction or symptoms requiring inhaled therapy at this time -Alpha-1 antitrypsin level 2. Former cigarette smoker -Former [id number] smoker having quit in 2010 with sequelae of emphysema -Qualifies for low-dose chest CT cancer screening. Patient has yearly chest imaging for his aortic aneurysm which will screen for lung cancer Carla Ulrich MD [facility] [place] documented in this encounter [facility] 09-25-2022 History of Present illness Narrative PULM FUNCTION SMARTBLOCK: Provider: Carla Ulrich MD Assisting Tech: JACQUES Sampson Spirometry: 1 documented in this encounter [facility] 09-08-2022 Miscellaneous Notes Faxed polysomnogram order to [facility] sleep, per Enedelia request. documented in this encounter [facility] 08-30-2022 Miscellaneous Notes Medical records received from main campus medical center. Scanned documents into patient chart for review. documented in this encounter [facility] 08-29-2022 Instructions Mae Ray PA-C - 08/29/2022 12:41 PM EST 1) continue aspirin 2) sleep study 3) send pulmonology 4) Considerations for the future: physical therapy or cerebrovascular for their input, and/or longer cardiac monitoring 5) At your next visit with cardiology, please mention the compliance monitor so they can follow along 6) If you want to follow with Dr. Anderson here, he is a sleep medicine specialist documented in this encounter [facility] 08-29-2022 History of Present illness Narrative Images from the original note were not included. [facility] Name: Shashank Asher Olga Age: [age] year old Gender: male Primary Care Provider: Yuval Dorantes MD Assessment/Plan: The primary encounter diagnosis was TIA (transient ischemic attack). Diagnoses of Risk factors for obstructive sleep apnea and Shortness of breath were also pertinent to this visit. Pleasant 77-year-old male here to establish care after he was admitted to [facility] on 06/23/2022 - 06/24/2022 for TIA. Symptoms at that time included dizziness, unsteady gait, and possibly left lower extremity weakness at that time. Symptoms lasted for 2 hours before significantly improving without complete resolution. Patient was on aspirin at time of ER visit. Plavix was added to the medication regimen for 30 days, and then Plavix was discontinued. He continues on aspirin 81 mg monotherapy. He is currently on atorvastatin 40 mg. Last LDL was good at 74. A1c was 5.6. Risk factors for stroke include complete occlusion of the right internal carotid artery, history of cigarette use (8 to 10-year pack history), hyperlipidemia, and hypertension. MRI of the brain was negative for acute infarct. CTA of the head and neck showed complete occlusion of the right internal carotid artery with less than 50% occlusion of the left ICA. Echo showed normal LV size with ejection fraction of 55%. It did show mild left atrial enlargement. No ASD, shunt, or valvular disease. Since last visit, patient completed a 48-hour compliance monitor which did not show atrial fibrillation but did show SVT, couplets, and I recommended the patient follow-up with his senior mechanical engineer regarding this. Rhythm strips provided for patient to provide to his senior mechanical engineer and offer to also fax if they can provide the fax number. We did discuss that he has left atrial enlargement which could put him at risk of atrial fibrillation. We did discuss that 48 hours is more of a screening test, and we could consider prolonged cardiac monitoring of 21 to 30 days to further evaluate. I also offered referral to cerebrovascular for their input on this. Patient declined at this time. He does not wish to pursue a lot of testing. Patient regularly follows with Dr. Juarez for monitoring of left ICA with last appointment on 07/14/2022. Per patient no further intervention at this time and he can follow-up in 1 year. Patient also is status post stent placement and regularly follows with senior mechanical engineer Dr. Preciado in December. Patient reports he was also told at the hospital that a sleep study was recommended due to severe snoring. Patient does have hypertension, snoring, and morning fatigue. I did put in an order for polysomnogram and educated patient that untreated sleep apnea can increase his risk of stroke. Patient was initially agreeable, but later told staff that he would prefer to hold off on this. The order has been placed. He is welcome to follow-up with Dr. Anderson and discuss further with him as he is a sleep specialist. Patient continues to have imbalance following TIA although less severe. He does not have any signs or symptoms of cervical myelopathy including sensory level on exam, increased tone in his lower extremities, hyperreflexia, or neck pain. No bowel or bladder incontinence. MRI of the brain was negative for posterior or cerebellar stroke. MRA was negative for VBI. Patient does have decreased smell and taste and some bradykinesia, but otherwise has normal tone, no signs or symptoms of REM sleep behavior disorder, or other signs of Parkinson's. Again recommended physical therapy, but patient declined. Patient expresses wish to pursue very little testing. Plan: Patient is here for follow-up for TIA after he was admitted to [facility] on 06/23/2022 - 06/24/2022. Symptoms at that time included dizziness and gait instability. Patient was on aspirin at the time of occurrence. Patient was discharged on DAPT for 30 days which she completed. CTA of the neck showed right carotid artery occlusion and atherosclerotic calcified plaque in the aortic arch for which he follows with Dr. Juarez (vascular). CTA of the head and neck otherwise unremarkable. MRI of the brain negative. Echo showed slight atrial enlargement but was otherwise unremarkable. 48-hour cardiac monitoring did not show atrial fibrillation. Risk factors for stroke include dyslipidemia, complete occlusion of the right carotid artery, hypertension, and 7-43-cxok-year history of smoking (quit decades ago). - Continue aspirin 81 mg and Lipitor 40 mg for secondary stroke prevention - Recommended referral to cerebrovascular for their input but patient declined at this time. -Discussed possibility of longer cardiac monitoring (21 to 30 days) to rule out A-fib but patient would prefer to discuss with Dr. Anderson -Recommended follow-up with senior mechanical engineer Dr. Preciado for more benign arrhythmias noted on cardiac monitoring including PVCs and SVT -Recommended polysomnogram based on patient's risk factors including snoring, daytime fatigue, hypertension, and patient's report that hospital had recommended it based on his snoring. Patient also educated about increased risk of stroke. Order placed. Patient initially agreeable, but later expressed apprehension. Would like to discuss further with Dr. Anderson -For continued imbalance, no signs or symptoms of myelopathy on exam. MRI negative for posterior circulating artery stroke although could not view the imaging directly. CTA not suggestive of VBI. The patient does have some symptoms of Parkinson's including decreased taste and smell and bradykinesia, but otherwise no suggestion of Parkinson's. Recommended physical therapy, but patient declined. -Patient reports finding of COPD on chest x-ray at [place]. He does have occasional shortness of breath. I did place a referral to pulmonology to evaluate further. -For reduction in the chances of further TIAs and strokes: - Target blood pressure is less than 130/80 mmHg - Target LDL (Bad cholesterol) less than 70 - Target HDL (Good cholesterol) greater than 50 - Triglyceride target within normal range - Hemoglobin A1c less than 7 - Follow up with Dr. Anderson for expertise in sleep medicine as well as input regarding balance No orders of the defined types were placed in this encounter. No follow-ups on file. Chart, labs,and relevant images reviewed. Chief Complaint:No chief complaint on file. Chart Review: HPI: Pleasant 77-year-old male here to establish care after he was mated to [facility] on 06/23/2022 - 06/24/2022 for TIA. Symptoms at that time included dizziness and unsteady gait. Unclear if patient also had left lower extremity weakness. Patient states that his left leg was wavering when held antigravity, but unfortunately we do not have full details regarding this. Symptoms lasted for 2 hours before significantly improving without complete resolution. Patient was on aspirin at time of ER visit. MRI of the brain was negative for acute infarct. CTA of the head and neck showed complete occlusion of the right internal carotid artery with less than 50% occlusion of the left ICA. Patient regularly follows with Dr. Juarez for monitoring of left ICA with last appointment on 07/14/2022. Per patient, Dr. Juarez did not think any further testing was required and advised follow-up in 1 year. Patient's imbalance especially with widened station has persisted. Overall reports that he is doing well. He was previously noted to have mild dysmetria of the right upper extremity and [id number] but this is no longer present today. Patient continues to have some balance problems but denies any recent falls. Denies bowel or bladder incontinence, neck pain, weakness, or difficulty with the dexterity in his hands. No signs or symptoms of neuropathy. Patient reports several year history of decreased smell and taste. He does have some bradykinesia on exam. Denies family history of Parkinson's, REM sleep disorder, difficulty initiating movement, or resting tremor. Again discussed the possibility of physical therapy, but patient declined. Since last visit, he completed a 30-day dual antiplatelet therapy and is no longer on Plavix. He continues on aspirin 81 mg which she is compliant with. He denies any signs or symptoms of bleeding. At baseline, he has bruised easily and this is not changed. He continues on Lipitor 40 mg daily. Patient reports that he has upcoming appointment with his senior mechanical engineer Dr. Preciado in December. Also followed up with vascular surgeon, Dr. Juarez for surveillance of his carotids (right internal carotid is completely occluded). Per patient no further testing was required and recommended follow-up in 1 year. Patient reports that x-ray of his chest at [facility] was suggestive of possible COPD. Patient reports an 8 to 10-year pack history but stopped smoking decades ago. Does report some shortness of breath and occasional cough. Patient reports that while he was at [facility], they recommended he follow-up with a polysomnogram because his snoring was noted to be severe, per patient. We did discuss further testing and referrals including referral to cerebrovascular further input, referral to pulmonology given the COPD, longer cardiac monitoring, and physical therapy, but patient expresses wish to limit testing. He states that he is 77 years old and probably only has another good 5 years. Work up thus far: CT head (06/23/22): There is moderate cerebral atrophy with widening of the extra-axial spaces and ventricular dilatation. There are areas of decreased attenuation within the white matter tracts of the supratentorial brain, consistent with microvascular disease changes. There is no intracranial hemorrhage. There are no findings of an acute ischemic infarction. Atherosclerotic calcification of the cavernous portions of the internal carotid arteries and vertebral arteries. CTA Head AND Neck W/Con: There is occlusion of the right internal carotid artery just distal to the carotid bifurcation. The right intracerebral branches are filled from the left internal carotid artery. Less than 50% cross sectional diameter stenosis on the left. Normal bilateral vertebral arteries. Normal basilar artery with a normal basilar bifurcation. The visualized bilateral superior cerebellar (SCA) arteries are normal. Normal bilateral P1, P2 and visualized P3 segments of the posterior cerebral arteries. MRI BRAIN WITHOUT CONTRAST: No acute abnormal brain finding. ECHO (06/24/22): Normal LV size. The estimated ejection fraction is 55%. Diastolic function is indeterminate. The left atrium is mildly enlarged. No doppler evidence for ASD. Bubble contrast study negative for right to left interatrial shunt. No valvular disease. 48-hour cardiac monitoring: Was not suggestive of atrial fibrillation LDL: 74 A1c: 5.6 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) Other Acne Neoplasm of Uncertain Behavior of Skin Benign Neoplasm of Eyelid, Including [place] Myalgia and Myositis, Unspecified Adjustment Disorder With Depressed Mood Viral Warts, Unspecified Insomnia, Unspecified Other Chronic Pain Summary Chest Pain Melena Hld (Hyperlipidemia) Hypertension Goal Bp (Blood Pressure) < 140/90 Cad (Coronary Artery Disease), [place] Coronary Artery S/P Coronary Artery Stent Placement Duodenitis Without Mention of Hemorrhage Sinus Bradycardia Carotid artery occlusion, right History of Aneurysm Hypothyroidism Chronic Constipation Encounter for Screening Colonoscopy Hyperlipidemia Burning sensation of toes Perianal Wart 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 ipratropium bromide (ATROVENT) 42 mcg (0.06 %) nasal spray Use 2 Sprays in the nose four times daily as needed. (Patient not taking: Reported on 06/27/2022) fluticasone (FLONASE) 50 mcg/actuation nasal spray Use 2 Sprays in each nostril once daily as needed. Rinse mouth after use. (Patient not taking: Reported on 06/27/2022) traZODone (DESYREL) 100 mg tablet Take 1-2 tablets by mouth daily at bedtime. ([facility]) psyllium husk (KONSYL SUGAR-FREE) 6 gram/6 gram powd Take 1 Scoop by mouth once daily as needed. (Patient not taking: No sig reported) nitroglycerin sublingual (NITROQUICK) 0.4 mg SL tablet Dissolve 1 tablet under the tongue as needed. FOR CHEST PAIN. IF NO RELIEF CALL 911 levothyroxine (SYNTHROID) 50 mcg tablet Currently taking 1 pill daily except 1 day a week takes 2 pills (Sunday) ([facility]; dose decreased to one pill daily by [facility] provider) (Patient taking differently: Currently taking 1 pill daily except 1 day a week takes 2 pills on Sunday) docusate sodium (COLACE) 100 mg capsule Take 1 capsule by mouth twice daily as needed for Constipation. atorvastatin (LIPITOR) 40 mg tablet Take 1 tablet by mouth once daily. For cholesterol. (From [facility]) famotidine (PEPCID) 40 mg tablet Take 1 tablet by mouth twice daily. amLODIPine (NORVASC) 10 mg tablet Take 1 tablet by mouth once daily. 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 Cruz) losartan (COZAAR) 100 mg tablet Take 1 tablet by mouth once daily. Aspirin 81 mg ORAL Tab Take 81 mg by mouth once daily. No current facility-administered medications on file prior to visit. ALLERGIES Allergen Reactions Prilosec [Omeprazol* Other: See Comments GI upset FAMILY HISTORY Problem Relation Age of Onset Emphysema Father Diabetes Father heart Heart Mother mi Hypertension Mother stomach cancer other (physical problems from being in plane crash) Sister PAST SURGICAL HISTORY Procedure Laterality Date ADENOIDECTOMY PRIMARY <AGE 12 Adenoidectomy COLONOSCOPY FLX DX W/COLLJ SPEC WHEN PFRMD 09/1994, 12/2001 Colonoscopy COLONOSCOPY FLX DX W/COLLJ SPEC WHEN PFRMD 10/10/2010 Colonoscopy COLONOSCOPY FLX DX W/COLLJ SPEC WHEN PFRMD 10/03/2016 normal 10 year follow up ESOPHAGOGASTRODUODENOSCOPY TRANSORAL DIAGNOSTIC 10/10/2010 EGD LEFT HEART CATH,PERCUTANEOUS 08/23/2010 Cardiac cath, L heart [facility] PAST SURGICAL HISTORY OF 12/08/2020 Examination under anesthesia, anoscopy, biopsy SIGMOIDOSCOPY FLX DX W/COLLJ SPEC BR/WA IF PFRMD 09/11/2012 Sigmoidoscopy, flexible TONSILLECTOMY PRIMARY/SECONDARY <AGE 12 Tonsillectomy Social Hx: @Alcohol Use: Not on file Tobacco Use: Medium Risk Smoking Tobacco Use: Former Smokeless Tobacco Use: Never Passive Exposure: Not on file There were no vitals filed for this visit. Neurologic Exam Cognitive and Language: Alert and answered questions appropriately. Language was fluent. Cranial Nerves: Facial strength was symmetric. Motor: Can move all four extremities antigravity Tone: Normal in all four extremities Reflexes: 2/2 throughout Coordination: Normal finger to nose testing bilaterally (previous dysmetria on FTN on the right now resolved). Some imbalance with gait, especially when turning Labs: Lab Results Component Value Date WBC 7.66 06/27/2022 HGB 14.8 06/08/2020 HGB 14.8 06/08/2020 HCT 45.9 06/27/2022 MCV 93.1 06/27/2022 PLT 191 06/27/2022 Lab Results Component Value Date HBA1C 5.6 07/04/2022 HBA1C 5.5 06/08/2020 HBA1C 5.5 11/07/2018 HBA1C 5.6 09/24/2017 Total Cholesterol, Nonfasting Date Value Ref Range Status 07/04/2022 140 <200 mg/dL Final Comment: <200 mg/dL, Desirable 200-239 mg/dL, Borderline high >239 mg/dL, High HDL Cholesterol, Nonfasting Date Value Ref Range Status 07/04/2022 49 >39 mg/dL Final Comment: 40-59 mg/dL, Acceptable >59 mg/dL, High: Negative risk factor for coronary heart disease <40 mg/dL, Low: Positive risk factor for coronary heart disease LDL Cholesterol, Nonfasting Date Value Ref Range Status 07/04/2022 74 <100 mg/dL Final Comment: <100 mg/dL, Optimal 100-129 mg/dL, Near optimal/above optimal 130-159 mg/dL, Borderline high 160-189 mg/dL, High >189 mg/dL, Very high Secondary prevention optimal LDL Cholesterol levels are recommended to be < 70 mg/dL Triglycerides, Nonfasting Date Value Ref Range Status 07/04/2022 83 <150 mg/dL Final Comment: <150 mg/dL, Normal 150-199 mg/dL, Borderline high 200-499 mg/dL, High >499 mg/dL, Very high Radiology: No results found. This note was dictated using [employer] speech recognition software and may contain some errors that were a result of the program not accurately transcribing what was dictated, despite efforts to make corrections. Note that unless urgent, test and MRI results will be discussed at next follow-up visit. PROMIS (Patient-Reported Outcomes Measurement Information System) is a set of person-centered measures that evaluates and monitors physical, social, and emotional health. It can be used with the general population and with individuals living with chronic conditions. PROMIS 10: PHYSICAL AND MENTAL HEALTH: PHQ-9 10/02/2012 07/26/2011 Score 6 6 Time spent included 39 min on the day of service, which included preparing to see the patient, [id number] patient care, completing clinical documentation, obtaining and/or reviewing separately obtained history, performing a medically appropriate examination, counseling and educating the patient/family/caregiver and ordering medications, tests, or procedures. documented in this encounter [facility] 08-01-2022 Miscellaneous Notes Received Echo report by fax from [facility]. Echo done on 06/23/2022 Report sent to scanning and copy given to the provider at the [place] office. FYAntoine Called [facility] and spoke with Christina. Requested the ECHO report be faxed to the office for the provider. documented in this encounter [facility] 07-26-2022 Miscellaneous Notes [facility] team called. The closest hub for Holter to [place] is noted as [facility] (scheduling [phone] option #2). Patient called. Patient shared that He thought this testing was being mailed out. Patient shared he is open to traveling to [place] for placement. Number offered to schedule placement in [place] for monitor. Zio was not ordered at this time. I shared with patient that if there are any additional changes that we will be in touch. He shared that he and his niece will schedule the Holter. We ended our call pleasantly. Cinthya Hankins RN, BSN Enedelia patient's niece calls and states that patient still has not received cardiac heart monitor that was ordered in June. Is provider wanting results before patient's appointment at end of July? Address verified. Please review and advise, Janeen Knott RN documented in this encounter [facility] 07-04-2022 Miscellaneous Notes Provider ordered cardiac heart monitor for patient. Fax sent to [facility] as instructed with patient demographics and order to [phone]. Pt updated through to instructed to call our office if they do not receive their monitor within 2 weeks. JESS Han documented in this encounter [facility] 07-04-2022 History of Present illness Narrative Images from the original note were not included. [facility] Shashank Espinoza Age: [age] year old Gender: male Primary Care Provider: Yuval Dorantes MD Consult requested for TIA by Minoo Casanova CNP. Recommendations will be communicated via shared medical record or US mail. Chief Complaint:No chief complaint on file. HPI: Shashank is a 77-year-old male with a past medical history of COPD (?), hypertension, hyperlipidemia, CAD (s/p stent), and thoracic aneurysm who presents for TIA. Patient was admitted to [facility] on 06/23/22-06/24/22 for TIA. He was prescribed Plavix 75 mg daily. Per Minoo Casanova's note: He initially had presented to ER due to acute dizziness and unsteady gait. He was at the [place] for his COVID booster when he had symptoms that worsened and was taken by private vehicle to [facility]. He has a medical history significant for carotid artery stenosis with complete occlusion on the right, hypertension, hyperlipidemia and coronary artery disease. He underwent CT of brain and CTA, no interval changes noted, MRI negative for stroke. Kept over night for observation and to complete MRI. ECHO was unremarkable, EF was 55%. EKG and CXR stable. Symptoms completely resolved so he was discharged the following day. Continued on aspirin and statin and added Plavix at discharge, all other home medications resumed and unchanged. Follows with [place] [facility] for cardiology and previously seen by Dr. Durham for vascular. Today patient is accompanied by his niece. As stated above, he clarified that he was experiencing acute dizziness and unsteady gait so severe that he could not walk when he was at his doctor's appointment. Balance problems were severe for about two hours before improving without complete resolution. Notes report that patient may also have had left-sided weakness, although patient denies any clear weakness and states that his left leg was wavering when he was holding it antigravity. MRI of the brain and CT of the head in the hospital did not show acute infarct. CTA of the head and neck showed complete occlusion of the right internal carotid artery and less than 50% stenosis of the left internal carotid artery. Patient reports that he regularly follows with Dr. Durham with next appointment on 07/14/2022. Patient reports that previous ultrasound testing of his carotid arteries were more suggestive of the left internal carotid artery being 70% occluded. Patient reports that he continues to experience dizziness and unsteady gait. He reports that he compensates for his imbalance by adopting a wide base and turning his right foot outward for more stability. Patient denies any falls since discharge. He states that he feels he is compensating well and does not feel he has significant deficits. Patient reports that when he does feel imbalanced it is usually more to the right. Patient reports that he does have pain in his neck region, but otherwise no new symptoms. Patient's risk factors for stroke include hypertension and dyslipidemia. He does not have a history of smoking or alcohol use. Work up thus far: CT head (06/23/22): There is moderate cerebral atrophy with widening of the extra-axial spaces and ventricular dilatation. There are areas of decreased attenuation within the white matter tracts of the supratentorial brain, consistent with microvascular disease changes. There is no intracranial hemorrhage. There are no findings of an acute ischemic infarction. Atherosclerotic calcification of the cavernous portions of the internal carotid arteries and vertebral arteries. CTA Head AND Neck W/Con: There is occlusion of the right internal carotid artery just distal to the carotid bifurcation. The right intracerebral branches are filled from the left internal carotid artery. Less than 50% cross sectional diameter stenosis on the left. MRI BRAIN WITHOUT CONTRAST: No acute abnormal brain finding. ECHO (06/24/22): Normal LV size. The estimated ejection fraction is 55%. Diastolic function is indeterminate. The left atrium is mildly enlarged. No doppler evidence for ASD. Bubble contrast study negative for right to left interatrial shunt. No valvular disease. 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) Other Acne Neoplasm of Uncertain Behavior of Skin Benign Neoplasm of Eyelid, Including [place] Myalgia and Myositis, Unspecified Adjustment Disorder With Depressed Mood Viral Warts, Unspecified Insomnia, Unspecified Other Chronic Pain Summary Chest Pain Melena Hld (Hyperlipidemia) Hypertension Goal Bp (Blood Pressure) < 140/90 Cad (Coronary Artery Disease), [place] Coronary Artery S/P Coronary Artery Stent Placement Duodenitis Without Mention of Hemorrhage Sinus Bradycardia Carotid artery occlusion, right History of Aneurysm Hypothyroidism Chronic Constipation Encounter for Screening Colonoscopy Hyperlipidemia Burning sensation of toes Perianal Wart 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 ibuprofen (MOTRIN) 800 mg tablet Take 1 tablet by mouth every 8 hours as needed for pain (with food). Take with food. (Patient not taking: Reported on 06/27/2022) clonazePAM (KLONOPIN) 1 mg tablet Take 0.5-1 tablets by mouth twice daily for 60 days. ipratropium bromide (ATROVENT) 42 mcg (0.06 %) nasal spray Use 2 Sprays in the nose four times daily as needed. (Patient not taking: Reported on 06/27/2022) fluticasone (FLONASE) 50 mcg/actuation nasal spray Use 2 Sprays in each nostril once daily as needed. Rinse mouth after use. (Patient not taking: Reported on 06/27/2022) traZODone (DESYREL) 100 mg tablet Take 1-2 tablets by mouth daily at bedtime. ([facility]) psyllium husk (KONSYL SUGAR-FREE) 6 gram/6 gram powd Take 1 Scoop by mouth once daily as needed. (Patient not taking: Reported on 06/27/2022) nitroglycerin sublingual (NITROQUICK) 0.4 mg SL tablet Dissolve 1 tablet under the tongue as needed. FOR CHEST PAIN. IF NO RELIEF CALL 911 levothyroxine (SYNTHROID) 50 mcg tablet Currently taking 1 pill daily except 1 day a week takes 2 pills (Sunday) ([facility]; dose decreased to one pill daily by [place] provider) (Patient taking differently: Currently taking 1 pill daily except 1 day a week takes 2 pills on Sunday) docusate sodium (COLACE) 100 mg capsule Take 1 capsule by mouth twice daily as needed for Constipation. (Patient not taking: Reported on 06/27/2022) atorvastatin (LIPITOR) 40 mg tablet Take 1 tablet by mouth once daily. [facility] cholesterol. ([facility]) famotidine (PEPCID) 40 mg tablet Take 1 tablet by mouth twice daily. amLODIPine (NORVASC) 10 mg tablet Take 1 tablet by mouth once daily. 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 Cruz) losartan (COZAAR) 100 mg tablet Take 1 tablet by mouth once daily. Aspirin 81 mg ORAL Tab Take 81 mg by mouth once daily. No current facility-administered medications on file prior to visit. ALLERGIES Allergen Reactions Prilosec [Omeprazol* Other: See Comments GI upset FAMILY HISTORY Problem Relation Age of Onset Emphysema Father Diabetes Father heart Heart Mother mi Hypertension Mother stomach cancer other (physical problems from being in plane crash) Sister PAST SURGICAL HISTORY Procedure Laterality Date ADENOIDECTOMY PRIMARY <AGE 14 Adenoidectomy COLONOSCOPY FLX DX W/COLLJ SPEC WHEN PFRMD 09/1994, 12/2001 Colonoscopy COLONOSCOPY FLX DX W/COLLJ SPEC WHEN PFRMD 10/10/2010 Colonoscopy COLONOSCOPY FLX DX W/COLLJ SPEC WHEN PFRMD 10/03/2016 normal 10 year follow up ESOPHAGOGASTRODUODENOSCOPY TRANSORAL DIAGNOSTIC 10/10/2010 EGD LEFT HEART CATH,PERCUTANEOUS 08/23/2010 Cardiac cath, L heart [facility] PAST SURGICAL HISTORY OF 12/08/2020 Examination under anesthesia, anoscopy, biopsy SIGMOIDOSCOPY FLX DX W/COLLJ SPEC BR/WA IF PFRMD 09/11/2012 Sigmoidoscopy, flexible TONSILLECTOMY PRIMARY/SECONDARY <AGE 14 Tonsillectomy SOCIAL HISTORY Not known who had what, but listed in medical hx a family hx of dm, ascvd, copd, and htn. Tobacco Use: Medium Risk Smoking Tobacco Use: Former Smokeless Tobacco Use: Never Passive Exposure: Not on file PHYSICAL EXAM There were no vitals filed for this visit. Neurologic Exam Cognitive and Language: Alert and answered questions appropriately. Language was fluent including repetition and naming. Followed simple and complex commands. Cranial Nerves: Visual briseno were full tested binocularly to finger counting in all 4 quadrants with no visual extinction. Pupils were equal and both reactive to light. Extraocular movements were full with no diplopia or nystagmus. Facial sensation was normal to light touch in V1 to V3. Facial strength was symmetric. Normal hearing grossly bilaterally. Palatal raise was symmetric. Shoulder shrug was symmetric. Tongue protrusion was symmetric with no fasciculations. Right Left Shoulder Abduction: 5 5 Elbow Extension 5 5 Elbow Flexion 5 5 Wrist Extension 5 5 Finger Extension 5 5 Finger Abduction 5 5 Right Left Hip Flexion 5 5 Knee Extension 5 5 Knee Flexion 5 5 Dorsiflexion 5 5 Plantar Flexion 5 5 Rest tremor: absent Tone: Normal in all four limbs Reflexes: Right Left Brachioradialis 2+ 2+ Biceps 2+ 2+ Triceps 2+ 2+ Patella 2+ 2+ Ankle 1+ 1+ Sensory: Sensitive to light touch in all 4 extremities. Coordination: Patient has mild dysmetria on the right with [id number]. Negative romberg with wide base and positive Romberg with narrow station. Wide-based gait while walking or standing. Patient rotates his right foot laterally for more stability. Labs: Lab Results Component Value Date WBC 7.66 06/27/2022 HGB 14.8 06/08/2020 HGB 14.8 06/08/2020 HCT 45.9 06/27/2022 MCV 93.1 06/27/2022 PLT 191 06/27/2022 Lab Results Component Value Date HBA1C 5.5 06/08/2020 HBA1C 5.5 11/07/2018 HBA1C 5.6 09/24/2017 Cholesterol, Total Date Value Ref Range Status 12/02/2021 133 <200 mg/dL Final Comment: <200 mg/dL, Desirable 200-239 mg/dL, Borderline high >239 mg/dL, High HDL Cholesterol Date Value Ref Range Status 12/02/2021 48 >39 mg/dL Final Comment: 40-59 mg/dL, Acceptable >59 mg/dL, High: Negative risk factor for coronary heart disease <40 mg/dL, Low: Positive risk factor for coronary heart disease LDL Cholesterol Date Value Ref Range Status 12/02/2021 67 <100 mg/dL Final Comment: <100 mg/dL, Optimal 100-129 mg/dL, Near optimal/above optimal 130-159 mg/dL, Borderline high 160-189 mg/dL, High >189 mg/dL, Very high Secondary prevention optimal LDL Cholesterol levels are recommended to be < 70 mg/dL Triglyceride Date Value Ref Range Status 12/02/2021 91 <150 mg/dL Final Comment: <150 mg/dL, Normal 150-199 mg/dL, Borderline high 200-499 mg/dL, High >499 mg/dL, Very high Radiology: Assessment/Plan: Chart, labs,and relevant images reviewed. There were no encounter diagnoses. Pleasant 77-year-old male here to establish care after he was mated to [facility] on 06/23/2022 - 06/24/2022 for TIA. Symptoms at that time included dizziness and unsteady gait. Unclear if patient also had left lower extremity weakness. Patient states that his left leg was wavering when held antigravity, but unfortunately we do not have full details regarding this. Symptoms lasted for 2 hours before significantly improving without complete resolution. Patient was on aspirin at time of ER visit. MRI of the brain was negative for acute infarct. CTA of the head and neck showed complete occlusion of the right internal carotid artery with less than 50% occlusion of the left ICA. Patient regularly follows with Dr. Moreno for monitoring of left ICA with next appointment on 07/14/2022. Patient's imbalance especially with widened station has persisted. He is also noted to have very mild dysmetria on the right. This raises concern for possible CVA not seen on MRI given that symptoms have not resolved within 24 hours. I did recommend physical therapy, but despite education, patient declined. Patient is agreeable to echo and 48-hour cardiac monitoring. We will also obtain lipid panel and A1c. Plavix was added in the hospital and patient is currently on dual antiplatelet therapy. Reviewed recent CBC which did not show any anemia. Patient had a fecal occult blood test with the results still pending due to concern of dark stools. However, patient denies abdominal pain, pain with eating, fatigue, bruising, nosebleeds, or rectal bleed. He does not currently have any signs or symptoms of blood loss. Did discuss point in chance trial with patient and niece. Discussed that dual antiplatelet therapy is usually continued for 30 days, but I do also think it is reasonable to consider 90 days given his intracranial stenosis. I had initially recommended the full 90 days, but upon further thought, will await results of the fecal occult blood test before sending in Plavix prescription. Regarding patient's neck pain, patient does have tenderness to palpation of muscles in his right posterior neck region and this is most likely muscular. Discussed possible treatments including physical therapy which patient again declined. Patient's risk factors for stroke include hypertension and dyslipidemia. He does not have a history of smoking or alcohol use. PLAN -A1c, lipid panel -48 hour heart monitor -Blood pressure today: 102/64 -Follow-up with vascular Dr. Durham on 07/14/2022 -Continue on DAPT for at least 21 to 30 days. Will await fecal occult blood test before sending in prescription. -Follow up in 6 weeks Time spent included 60 min on the day of service, which included preparing to see the patient, [id number] patient care, completing clinical documentation, obtaining and/or reviewing separately obtained history, performing a medically appropriate examination, counseling and educating the patient/family/caregiver and ordering medications, tests, or procedures. No orders of the defined types were placed in this encounter. No follow-ups on file. This note was dictated using [employer] Notes speech recognition software and may contain some errors that were a result of the program not accurately transcribing what was dictated, despite efforts to make corrections. Note that unless urgent, test and MRI results will be discussed at next follow-up visit. PROMIS (Patient-Reported Outcomes Measurement Information System) is a set of person-centered measures that evaluates and monitors physical, social, and emotional health. It can be used with the general population and with individuals living with chronic conditions. PROMIS 10: PHYSICAL AND MENTAL HEALTH: PHQ-9 10/02/2012 07/26/2011 Score 6 6 documented in this encounter [facility] 07-03-2022 Miscellaneous Notes Called patient. Verified name and date of . Patient informed of results/recommendations. Verbalizes understanding. Leelee Lyon LPN Please let patient know his PSA did increase some, its 5.8 I recommend getting his PSA in December for annual appt. If it goes up again in 6 months we will discuss possible prostate biopsy then. PSA in November-December prior to his annual appt ENRIQUE Richard, EDWIGE, JEIMY documented in this encounter [facility] 06-30-2022 Miscellaneous Notes PATIENT NOTIFIED OF SAME. Please call patient and let him know blood counts are stable, will wait for iFOB results to determine if he is loosing any blood from the GI tract but glad his blood counts look good. documented in this encounter [facility] 06-26-2022 History of Present illness Narrative TRANSITION CARE MANAGEMENT (TCM) INITIAL CONTACT [facility] Provider Action/FYI: No call made to patient as patient will be seen within 48 business hours of discharge. TRANSITION CARE MANAGEMENT INITIAL OUTREACH DOCUMENTATION: No flowsheet data found. SUMMARY: -Pt discharged from [facility] on 06/24/22. -Admitted for: Transient ischemic attack Do you have a hospital follow up appointment with your PCP? Appointment on 06/27/22 with Minoo Casanova CNP. MEDICATIONS: Many patients have questions or concerns about their medications once they are home. Were you prescribed any new medications? If yes, what are those medications? Plavix 75 mg daily Were you told to hold any medications? No Were any of your medications discontinued? No Medical records from recent hospitalization: Placed for provider to review documented in this encounter [facility] 06-13-2022 History of Present illness Narrative Verified name and date of . CC Post Void Residual HPI: Shashank Espinoza is a 77 year old male. The patient is here now for an appointment with Porsha Meadows, JESSIES, [place], PA-COV. Procedure: Explained procedure to patient and verbalizes understanding. Performed a PVR. Patient urinated and instructed to empty bladder as much as possible just prior to having PVR done using bladder ultrasound scanner. Results of scan: x mL The patient tolerated the procedure well. Plan: Appointment with Porsha. Images from the original note were not included. [facility] ESTABLISHED PATIENT CLINIC NOTE Some elements copied from his previous note, which have been updated where appropriate, and all reflect current medical decision making from date of this visit. SERVICE DATE: 06/13/2022 SERVICE TIME: 3:12 PM NAME: Shashank Espinoza CHIEF COMPLAINT: Elevated PSA HISTORY OF PRESENT ILLNESS: Shashank Espinoza is a 77 year old Male with PMH including elevated PSA presenting with new PSA that has gone up some The patient reports no new LUTs and is only concern is elevated PSA we had a long discussion And he would like to continue PSA for now LUTS: None Other symptoms: LABS: Hematocrit (%) Date Value 12/02/2021 47.0 06/08/2020 44.0 06/08/2020 44.0 12/11/2019 45.3 11/07/2018 45.0 PSA (ng/mL) Date Value 11/30/2020 4.28 06/08/2020 5.0 02/08/2016 2.32 No results found for: TESTOST MEDICATIONS: ibuprofen (MOTRIN) 800 mg tablet Take 1 tablet by mouth every 8 hours as needed for pain (with food). Take with food. clonazePAM (KLONOPIN) 1 mg tablet Take 0.5-1 tablets by mouth twice daily for 60 days. ipratropium bromide (ATROVENT) 42 mcg (0.06 %) nasal spray Use 2 Sprays in the nose four times daily as needed. fluticasone (FLONASE) 50 mcg/actuation nasal spray Use 2 Sprays in each nostril once daily as needed. Rinse mouth after use. traZODone (DESYREL) 100 mg tablet Take 1-2 tablets by mouth daily at bedtime. ([facility]) psyllium husk (KONSYL SUGAR-FREE) 6 gram/6 gram powd Take 1 Scoop by mouth once daily as needed. nitroglycerin sublingual (NITROQUICK) 0.4 mg SL tablet Dissolve 1 tablet under the tongue as needed. FOR CHEST PAIN. IF NO RELIEF CALL 911 levothyroxine (SYNTHROID) 50 mcg tablet Currently taking 1 pill daily except 1 day a week takes 2 pills (Sunday) ([facility]; dose [facility] to one pill [facility]) (Patient taking differently: Currently taking 1 pill daily except 1 day a week takes 2 pills on Sunday) docusate sodium (COLACE) 100 mg capsule Take 1 capsule by mouth twice daily as needed for Constipation. atorvastatin (LIPITOR) 40 mg tablet Take 1 tablet by mouth once daily. For cholesterol. ([facility]) famotidine (PEPCID) 40 mg tablet Take 1 tablet by mouth twice daily. amLODIPine (NORVASC) 10 mg tablet Take 1 tablet by mouth once daily. ([facility] senior mechanical engineer increased dose--Dr. Cruz) losartan (COZAAR) 100 mg tablet Take 1 tablet by mouth once daily. Aspirin 81 mg ORAL Tab Take 81 mg by mouth once daily. 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 Treated 3 times (twice in 90's); 3rd treatment effective PAST SURGICAL HISTORY: PAST SURGICAL HISTORY Procedure Laterality Date ADENOIDECTOMY PRIMARY <AGE 14 Adenoidectomy COLONOSCOPY FLX DX W/COLLJ SPEC WHEN PFRMD 09/1994, 12/2001 Colonoscopy COLONOSCOPY FLX DX W/COLLJ SPEC WHEN PFRMD 10/10/2010 Colonoscopy COLONOSCOPY FLX DX W/COLLJ SPEC WHEN PFRMD 10/03/2016 normal 10 year follow up ESOPHAGOGASTRODUODENOSCOPY TRANSORAL DIAGNOSTIC 10/10/2010 EGD LEFT HEART CATH,PERCUTANEOUS 08/23/2010 Cardiac cath, L heart [facility] PAST SURGICAL HISTORY OF 12/08/2020 Examination under anesthesia, anoscopy, biopsy SIGMOIDOSCOPY FLX DX W/COLLJ SPEC BR/WA IF PFRMD 09/11/2012 Sigmoidoscopy, flexible TONSILLECTOMY PRIMARY/SECONDARY <AGE 14 Tonsillectomy FAMILY HISTORY: FAMILY HISTORY Problem Relation Age of Onset Emphysema Father Diabetes Father heart Heart Mother mi Hypertension Mother stomach cancer other (physical problems from being in plane crash) Sister SOCIAL HISTORY: Social Connections: Not on file REVIEW OF SYSTEMS: GENERAL: No fever, chills, weight loss, or fatigue. All other systems reviewed and are negative PHYSICAL EXAMINATION: There were no vitals taken for this visit. GENERAL: WNL nutrition, no deformities, healthy appearing GENITOURINARY: MALE EXAM: Rectal Exam: Prostate: size (40 grams), symmetrical, nontender, w/o nodules. Not Indicated PROBLEM LIST REVIEW: Yes LABS: Results for orders placed or performed in visit on 06/13/22 UA DIP, URINE (POC) Result Value Ref Range GLUCOSE UA (POCT) Negative Negative mg/dL BILIRUBIN UA (POCT) Small (A) Negative KETONE UA (POCT) Trace Negative mg/dL SPECIFIC GRAVITY UA (POCT) >=1.030 1.005 - 1.030 HEMOGLOBIN/BLOOD UA (POCT) Negative Negative PH UA (POCT) 5.5 4.5 - 8.0 PROTEIN UA (POCT) 30 (A) Negative mg/dL UROBILINOGEN UA (POCT) 0.2 Normal E.U./dL NITRITE UA (POCT) Negative Negative LEUKOCYTES UA (POCT) Negative Negative COLOR UA (POCT) Dark yellow CLARITY UA (POCT) Clear PROCEDURES: PVR: 0 ml IMAGING: IMPRESSION/PLAN: 77 year old male with . 1. Elevated prostate specific antigen (PSA) - ICD9: 790.93, ICD10: R97.20 PSA is elevated but over all not mush talat and recommend > 6 months for PSA, No Appointment Needed > 1 year Appointment with PSA prior > Future PSA orders are in [facility] ENRIQUE Richard, JEIMY GIBBONS documented in this encounter [facility] 06-09-2022 History of Present illness Narrative Patient has appointment 06/13/2022. Once PSA ordered I will notify patient of order. Leelee Lyon LPN documented in this encounter [facility] 02-14-2022 Miscellaneous Notes Patient calling and states at his last OV with Dr. Dorantes on 12/09/21, he was told to follow up in about 4 months-which he then made a F/U appt for March. He states he got a call asking him to reschedule his March appt and the next appt is not until September 2022 but he doesn't know why. He is concerned about it and asking if it is okay to wait until September to see Dr. Dorantes? He reports he is on klonopin and wasn't sure when he needs to seen next. Patient aware he could see Valerie Alvarez sooner but prefers to see Dr. Dorantes. Please advise patient. Thank you. documented in this encounter [facility] 12-09-2021 History of Present illness Narrative This note was created using GROUNDFLOORriter. Subjective Shashank Espinoza is a 76 year old male. Patient presents with: Recheck: 4 month follow up SUBJECTIVE: Shashank Espinoza is a 76 year old year old gentleman here today for 4 month follow up appointment for review of medical conditions. Clinically euthyroid. [facility] [place] [facility] and [facility]. Kidney--states that was told has cysts. Evaluation at [facility]. 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 clonazePAM (KLONOPIN) 1 mg tablet Take 0.5-1 tablets by mouth twice daily for 60 days. ipratropium bromide (ATROVENT) 42 mcg (0.06 %) nasal spray Use 2 Sprays in the nose four times daily as needed. meloxicam (MOBIC) 15 mg tablet Take 1 tablet by mouth once daily. for pain. Take with food. fluticasone (FLONASE) 50 mcg/actuation nasal spray Use 2 Sprays in each nostril once daily as needed. Rinse mouth after use. traZODone (DESYREL) 100 mg tablet Take 1-2 tablets by mouth daily at bedtime. ([facility]) psyllium husk (KONSYL SUGAR-FREE) 6 gram/6 gram powd Take 1 Scoop by mouth once daily as needed. nitroglycerin sublingual (NITROQUICK) 0.4 mg SL tablet Dissolve 1 tablet under the tongue as needed. FOR CHEST PAIN. IF NO RELIEF CALL 911 levothyroxine (SYNTHROID) 50 mcg tablet Currently taking 1 pill daily except 1 day a week takes 2 pills (Sunday) ([facility]; dose [facility] to one [facility] by [facility]) (Patient taking differently: Currently taking 1 pill daily except 1 day a week takes 2 pills ( Sunday and Sunday) ([facility]; dose decreased to one pill daily by [facility]) ) docusate sodium (COLACE) 100 mg capsule Take 1 capsule by mouth twice daily as needed for Constipation. atorvastatin (LIPITOR) 40 mg tablet Take 1 tablet by mouth once daily. For cholesterol. (From [facility]) famotidine (PEPCID) 40 mg tablet Take 1 tablet by mouth twice daily. amLODIPine (NORVASC) 10 mg tablet Take 1 tablet by mouth once daily. 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 Cruz) losartan (COZAAR) 100 mg tablet Take 1 tablet by mouth once daily. Aspirin 81 mg ORAL Tab Take 162 mg by mouth once daily. Pt reported taking x2 daily current No current facility-administered medications for this visit. Review of Systems Objective BP (P) 102/64 (BP Site: Left Arm, BP Position: Sitting, BP Cuff Size: Regular Adult) Pulse (P) 60 Resp (P) 16 Wt 74.8 kg (165 lb) BMI 23.34 kg/m Last 5 Encounter Wt Readings: Date: Wt: 12/09/2021 74.8 kg (165 lb) 10/17/2021 75.8 kg (167 lb) 08/09/2021 77.6 kg (171 lb) 03/16/2021 78 kg (172 lb) 02/22/2021 76.7 kg (169 lb) No waist measurement recorded Estimated body mass index is 23.34 kg/m as calculated from the following: Height as of 01/18/21: 179.1 cm (5' 10.5). Weight as of this encounter: 74.8 kg (165 lb). Last 5 Encounter BP Readings: Date: BP: 10/17/2021 124/86 08/09/2021 126/78 03/16/2021 118/70 02/22/2021 112/68 01/18/2021 99/59 Physical Exam Vitals reviewed. Constitutional: Appearance: Normal appearance. Eyes: Conjunctiva/sclera: Conjunctivae normal. Cardiovascular: Rate and Rhythm: Normal rate and regular rhythm. Heart sounds: Normal heart sounds. Pulmonary: Effort: Pulmonary effort is normal. Breath sounds: Normal breath sounds. Skin: General: Skin is warm and dry. Neurological: General: No focal deficit present. Mental Status: He is alert and oriented to person, place, and time. Psychiatric: Mood and Affect: Mood normal. Behavior: Behavior normal. Thought Content: Thought content normal. Judgment: Judgment normal. Component Latest Ref Rng & Units 06/08/2020 06/08/2020 11/30/2020 12/02/2021 1:55 PM 1:55 PM RBC 4.20 - 6.00 m/uL 4.91 4.91 5.10 HGB 12 - 16 g/dL 14.8 14.8 Hematocrit 39.0 - 51.0 % 44.0 44.0 47.0 MCV 80.0 - 100.0 fL 89.7 89.7 92.2 MCH 26.0 - 34.0 pg 30.2 30.2 30.4 MCHC 30.5 - 36.0 g/dL 33.6 33.6 33.0 RDW 11.5 - 14.5 % 14.0 14.0 Platelet Count 150 - 400 k/uL 204 204 211 WBC 3.70 - 11.00 k/uL 9.40 9.40 7.44 MPV 9.0 - 12.7 fL 9.4 9.4 11.3 Lymph% 21 - 51 % 23.0 23.0 MONO % 2 - 8 % 7.8 7.8 NRBC 0.1 0.1 EOS % 1 - 3 % 2.6 2.6 BASO % 0 - 1.5 % 0.4 0.4 NEUT% 41.5 - 75.5 % 66.2 66.2 Absolute Band Neutrophils 1.9 - 8.6 k/uL 6.2 6.2 Absolute Lymphocytes(Lymph Subset) 0.8 - 5 k/uL 2.2 2.2 MONOCYTES ABSOLUTE 0.1 - 0.9 k/uL 0.7 0.7 EOSINOPHILS,ABSOLUTE 0 - 0.3 k/uL 0.2 0.2 BASOPHILS,ABSOLUTE 0 - 0.3 k/uL 0.0 0.0 Protein, Total 6.3 - 8.0 g/dL 6.7 Albumin 3.9 - 4.9 g/dL 3.8 3.8 4.1 Calcium 8.5 - 10.2 mg/dL 9.3 Bilirubin, Total 0.2 - 1.3 mg/dL 0.6 Alkaline Phosphatase 38 - 113 U/L 75 AST 14 - 40 U/L 18 18 20 ALT 10 - 54 U/L 16 Glucose 74 - 99 mg/dL 76 76 101 (H) BUN 9 - 24 mg/dL 12 12 14 Creatinine 0.73 - 1.22 mg/dL 0.9 0.9 1.03 Sodium 136 - 144 mmol/L 143 Potassium 3.7 - 5.1 mmol/L 4.2 Chloride 97 - 105 mmol/L 108 (A) 108 (A) 105 CO2 22 - 30 mmol/L 30 30 28 Anion Gap 9 - 18 mmol/L 10 eGFR >=60 mL/min/1.73m 76 NA 136 - 145 mmol/L 142 142 K 3.5 - 5.1 mmol/L 3.5 3.5 GFR mL/MIN 83 Total Protein 6.4 - 8.2 gm/dL 6.8 6.8 Calcium 8.5 - 10.1 mg/dL 8.8 8.8 Bili Total 0.2 - 1 mg/dL 0.5 0.5 ALT (SGPT) 12 - 78 U/L 23 23 Alk Phos Total 45 - 117 U/L 87 87 Hemoglobin 13.0 - 17.0 g/dL 15.5 RDW-CV 11.5 - 15.0 % 13.2 Absolute nRBC <0.01 k/uL <0.01 Cholesterol, Total <200 mg/dL 126 (A) 133 Triglyceride <150 mg/dL 76 91 HDL Cholesterol >39 mg/dL 48 Non HDL Cholesterol <130 mg/dL 85 Fasting Time hrs 13 VLDL Cholesterol <30 mg/dL 18 TC:HDL Ratio <5.10 2.77 LDL Cholesterol <100 mg/dL 67 LDL:HDL Ratio <2.54 1.40 HDL CHOLESTEROL 35 - 80 mg/dL 51 LDL Cholesterol 0 - 110 mg/dL 61 TSH 0.270 - 4.200 mIU/L 4.85 2.230 4.070 PSA 0.00 - 2.59 ng/mL 5.0 (A) 4.28 (H) Hemoglobin A1C 3.6 - 5.7 % 5.5 T3 79 - 165 ng/dL 100 Free T4 0.9 - 1.7 ng/dL 1.4 1.2 Free T3 2.3 - 4.1 pg/mL 3.1 Kidney and Bladder [facility] [address] [place] [address] Kidney and Bladder MR#: [id number] Acct: [id number] Name: SHASHANK ESPINOZA Rep #: [id number] : [id number] M 76 From: Alexsander ramirez MD PCP: Dr. Yuval Dorantes MD Status: REG CLI Study: Kidney and Bladder Date of Exam: 04/12/21 Exam# [id number] Ordering Dr: JUDAH BENITES STUDY: RENAL ULTRASOUND - COMPLETE REASON FOR EXAM: Male, 76 years old. CKD TECHNIQUE: Ultrasound evaluation of the kidneys was performed with real-time and static john-scale imaging. COMPARISON: None. _ FINDINGS: RIGHT KIDNEY: Normal location of the right kidney, which is normal in size. The right kidney measures 9.7 cm x 5.7 cm x 5.6 cm. There is a normal cortex of the right kidney. The renal cortex measures 1.4 cm. There are 2 right renal cysts. The larger measures 1.2 cm x 1.2 cm x 1.4 cm. There are no right renal calculi. There is no right hydronephrosis. DISTAL RIGHT URETER: There is non-visualization of the distal right ureter. There is no demonstrated right ureterovesical junction calculus. There is a visualized right ureteral jet. LEFT KIDNEY: Normal location of the left kidney, which is normal in size. The left kidney measures 11.2 cm x 5.2 cm x 4.6 cm. There is a normal cortex of the left kidney. The renal cortex measures 1 cm. There is no left renal mass or cyst. There are no left renal calculi. There is an extra-renal pelvis of the left kidney. There is no distention of the renal calyces. DISTAL LEFT URETER: There is non-visualization of the distal left ureter. There is no demonstrated left ureterovesical junction calculus. There is a visualized left ureteral jet. BLADDER: The distended urinary bladder has a volume of 140 ml. There is a normal wall thickness of the distended urinary bladder. There is no demonstrated mass within the urinary bladder. There are no demonstrated bladder calculi. _ US/Kidney and Bladder IMPRESSION: There are 2 small right renal cysts. Electronically Signed: Alexsander Mcclain MD at 13:32 EDT , Service support , CC: JUDAH BENITES; Dr. Yuval Dorantes MD Rib Matcher And Fitter: Signed Assessment and Plan ASSESSMENT/PLAN: 1. Mixed hyperlipidemia - ICD9: 272.2, ICD10: E78.2 (primary diagnosis) - good control - Continue current medication. - Encouraged following a low fat, low cholesterol diet. - Discussed the benefits of regular aerobic exercise and weight loss. 2. Acquired hypothyroidism - ICD9: 244.9, ICD10: E03.9 - Instructed patient on importance of taking on an empty stomach either first thing in the morning or at bedtime. Clinically euthyroid. Continue present management. 3. Hypertension goal BP (blood pressure) < 140/90 - ICD9: 401.9, ICD10: I10 - good control - Continue current medication(s) - Recommended regular aerobic exercise. - Recommend home blood pressure monitoring, to bring results in on next visit - Goal of BP <130/80 4. Renal cyst, right - ICD9: 753.10, ICD10: N28.1 Reviewed imaging study report Reassured appears to be a benign cyst. 5. Psychophysiological insomnia - ICD9: 307.42, ICD10: F51.04 Continue present management. noted that per PDMP, had not gotten refill on September RX. Sent RX in case error somewhere in pharmacy system and needs a new RX. - CLONAZEPAM 1 MG TABLET 6. Anxiety - ICD9: 300.00, ICD10: F41.9 Stable on med. Stable with control of anxiety. At this time benefits outweigh risks. Continue to monitor for adverse effects and indications for decreasing dose or tapering off. No signs of diversion or abuse of medication(s); no adverse effects. Continue present management. - CLONAZEPAM 1 MG TABLET Yuval Dorantes MD documented in this encounter [facility] 10-18-2021 Miscellaneous Notes Patient given results and verbalized understanding of instructions given. Ginna Ramsey Let patient know their covid19/influenza test was negative. documented in this encounter [facility] 10-17-2021 Instructions Irasema Murcia APRN.CNP - 10/17/2021 5:05 PM EDT BRAT DIET (may eat any of the following as tolerated) Bananas Applesauce [place] Saltine Crackers Animal Crackers Pretzels Oatmeal Unsweetened Dry Cereal (Rice Krispies, Cheerios) Plain Baked or Boiled Potato Plain White Rice Plain Noodles All clear liquid listed below CLEAR LIQUID DIET (need to drink 2 ounces total every half hour) Broth Jello Popsicles Pedialyte Gatorade NO Juices NO Milk NO Dairy Products Call if urine output is decreased or he develops dry mucous membranes, or lethargy. Nausea and Vomiting Take frequent small sips of water if a whole glass is too much. Try 5 or 6 small meals instead of 3 bigger meals. Suck on peppermint candy, or chew a stick of peppermint gum. Eating gelatin dessert, dry toast, crackers, and cooked cereal are good choices. Try to stay away from strong food odors, which can make nausea worse. documented in this encounter [facility] 04-04-2022 History of Present illness Narrative This note was created using GROUNDFLOORriter. Subjective Shashank Espinoza is a 76 year old male. 76 year old male with PMH CAD (with stents), HTN, hyperlipidemia, depression presents with complaints of illness. Acute onset Sunday evening. States that evening he ate chicken noodle soup, citing he felt a little off then. +nasal congestion a little under the weather +fever + chills. States that at the time he noted the chicken noodle soup could not really taste and only ate half the container. Went to bed and he woke up in the middle of the evening. Endorses at that time he experienced N/V/D. Sunday morning he experienced N/V/D States he had multiple episodes of diarrhea and emesis throughout the day. +diffuse abdominal pain and cramping. Endorses upon awakening this morning he felt better, went to [place] [employer] At that time he ate breakfast, citing he had eggs, sausage, and toast. and then shortly after he experienced N/V/D with stomach cramping. Denies lightheaded. Denies dizziness. Denies CP. Denies SOB or dyspnea. Denies prior history of same. Denies homeopathic. The history is provided by the patient. No hand ii tube bender was used. Vomiting This is a new problem. The current episode started more than 2 days ago. The problem occurs 2 to 4 times per day. Progression since onset: waxing and waning. The emesis has an appearance of stomach contents. Maximum temperature: fever Sunday evening, but not since. Associated symptoms include abdominal pain, chills and diarrhea. Pertinent negatives include no arthralgias, no cough, no headaches, no myalgias and no URI. Risk factors include suspect food intake and ill contacts. 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 Treated 3 times (twice in 90's); 3rd treatment effective PAST SURGICAL HISTORY Procedure Laterality Date ADENOIDECTOMY PRIMARY <AGE 12 Adenoidectomy COLONOSCOPY FLX DX W/COLLJ SPEC WHEN PFRMD 09/1994, 12/2001 Colonoscopy COLONOSCOPY FLX DX W/COLLJ SPEC WHEN PFRMD 10/10/2010 Colonoscopy COLONOSCOPY FLX DX W/COLLJ SPEC WHEN PFRMD 10/03/2016 normal 10 year follow up ESOPHAGOGASTRODUODENOSCOPY TRANSORAL DIAGNOSTIC 10/10/2010 EGD LEFT HEART CATH,PERCUTANEOUS 08/23/2010 Cardiac cath, L heart [facility] PAST SURGICAL HISTORY OF 12/08/2020 Examination under anesthesia, anoscopy, biopsy SIGMOIDOSCOPY FLX DX W/COLLJ SPEC BR/WA IF PFRMD 09/11/2012 Sigmoidoscopy, flexible TONSILLECTOMY PRIMARY/SECONDARY <AGE 12 Tonsillectomy ALLERGIES Prilosec [Omeprazole Magnesium] MEDICATIONS clonazePAM (KLONOPIN) 1 mg tablet Take 0.5-1 tablets by mouth twice daily for 60 days. ipratropium bromide (ATROVENT) 42 mcg (0.06 %) nasal spray Use 2 Sprays in the nose four times daily as needed. meloxicam (MOBIC) 15 mg tablet Take 1 tablet by mouth once daily. for pain. Take with food. fluticasone (FLONASE) 50 mcg/actuation nasal spray Use 2 Sprays in each nostril once daily as needed. Rinse mouth after use. traZODone (DESYREL) 100 mg tablet Take 1-2 tablets by mouth daily at bedtime. ([facility]) psyllium husk (KONSYL SUGAR-FREE) 6 gram/6 gram powd Take 1 Scoop by mouth once daily as needed. nitroglycerin sublingual (NITROQUICK) 0.4 mg SL tablet Dissolve 1 tablet under the tongue as needed. FOR CHEST PAIN. IF NO RELIEF CALL 911 levothyroxine (SYNTHROID) 50 mcg tablet Currently taking 1 pill daily except 1 day a week takes 2 pills (Sunday) ([facility]; dose decreased to one pill daily by [facility] provider) docusate sodium (COLACE) 100 mg capsule Take 1 capsule by mouth twice daily as needed for Constipation. atorvastatin (LIPITOR) 40 mg tablet Take 1 tablet by mouth once daily. For cholesterol. (From [facility]) famotidine (PEPCID) 40 mg tablet Take 1 tablet by mouth twice daily. amLODIPine (NORVASC) 10 mg tablet Take 1 tablet by mouth once daily. 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 rCuz) losartan (COZAAR) 100 mg tablet Take 1 tablet by mouth once daily. Aspirin 81 mg ORAL Tab Take 162 mg by mouth once daily. Pt reported taking x2 daily current ondansetron orally disintegrating (ZOFRAN ODT) 4 mg disintegrating tablet Take 1 tablet by mouth every 6 hours as needed for nausea/vomiting. FAMILY HISTORY Problem Relation Age of Onset Emphysema Father Diabetes Father heart Heart Mother mi Hypertension Mother stomach cancer other (physical problems from being in plane crash) Sister Social History Tobacco Use Smoking status: Former Smoker Packs/day: 1.00 Years: 23.00 Pack years: 23.00 Types: Cigarettes Quit date: 08/22/2010 Years since quittin.1 Smokeless tobacco: Never Used Substance Use Topics Alcohol use: No Drug use: No Review of Systems Constitutional: Positive for chills. HENT: Positive for congestion. Negative for ear discharge, ear pain, postnasal drip, rhinorrhea, sinus pressure, sneezing and sore throat. Eyes: Negative for photophobia, pain, discharge, redness and itching. Respiratory: Negative for apnea, cough and chest tightness. Cardiovascular: Negative for chest pain, palpitations and leg swelling. Gastrointestinal: Positive for abdominal pain, diarrhea, nausea and vomiting. Musculoskeletal: Negative for arthralgias and myalgias. Skin: Negative for color change, pallor, rash and wound. Allergic/Immunologic: Negative for environmental allergies, food allergies and immunocompromised state. Neurological: Negative for headaches. Hematological: Negative for adenopathy. Does not bruise/bleed easily. Psychiatric/Behavioral: Negative for agitation and behavioral problems. Objective BP 124/86 Pulse 96 Temp 36.9 C (98.4 F) Resp 16 Wt 75.8 kg (167 lb) SpO2 95% BMI 23.62 kg/m Physical Exam Vitals and nursing note reviewed. Constitutional: General: He is not in acute distress. Appearance: Normal appearance. He is not ill-appearing, toxic-appearing or diaphoretic. Comments: Non toxic. Pleasant. Talking on cell phone when entering exam room. Hemodynamically stable HENT: Head: Normocephalic and atraumatic. Right Ear: External ear normal. Left Ear: External ear normal. Nose: Nose normal. No congestion or rhinorrhea. Mouth/Throat: Mouth: Mucous membranes are moist. Pharynx: Oropharynx is clear. No oropharyngeal exudate or posterior oropharyngeal erythema. Eyes: General: Right eye: No discharge. Left eye: No discharge. Extraocular Movements: Extraocular movements intact. Conjunctiva/sclera: Conjunctivae normal. Pupils: Pupils are equal, round, and reactive to light. Cardiovascular: Rate and Rhythm: Normal rate and regular rhythm. Pulses: Normal pulses. Heart sounds: Normal heart sounds. No murmur heard. No friction rub. No gallop. Pulmonary: Effort: Pulmonary effort is normal. No respiratory distress. Breath sounds: Normal breath sounds. No stridor. No wheezing, rhonchi or rales. Chest: Chest wall: No tenderness. Abdominal: General: Abdomen is flat. There is no distension. Palpations: Abdomen is soft. There is no mass. Tenderness: There is abdominal tenderness (generalized and diffuse TTP of all 4 quadrants). There is no guarding or rebound. Hernia: No hernia is present. Musculoskeletal: General: No swelling, tenderness, deformity or signs of injury. Normal range of motion. Cervical back: Normal range of motion and neck supple. No rigidity or tenderness. Right lower leg: No edema. Left lower leg: No edema. Lymphadenopathy: Cervical: No cervical adenopathy. Skin: General: Skin is warm and dry. Capillary Refill: Capillary refill takes less than 2 seconds. Coloration: Skin is not jaundiced or pale. Findings: No bruising, lesion or rash. Neurological: General: No focal deficit present. Mental Status: He is alert and oriented to person, place, and time. Cranial Nerves: No cranial nerve deficit. Sensory: No sensory deficit. Motor: No weakness. Coordination: Coordination normal. Gait: Gait normal. Deep Tendon Reflexes: Reflexes normal. Psychiatric: Mood and Affect: Mood normal. Behavior: Behavior normal. Thought Content: Thought content normal. Assessment and Plan ASSESSMENT/PLAN: 1. Viral illness - ICD9: 079.99, ICD10: B34.9 (primary diagnosis) - Discussed viral etiology and rationale for treatment. - Symptomatic treatment with prn analgesia - Supportive care with fluids and rest - Follow up in 3-5 days if symptoms persist or sooner if worsening of symptoms - COVID WITH FLUA+B, ROUTINE - ONDANSETRON 4 MG DISINTEGRATING TABLET 2. Nausea vomiting and diarrhea - ICD9: 787.91, 787.01, ICD10: R11.2, R19.7 Likely related to viral illness. Non toxic Hemodynamically stable BRAT diet - COVID WITH FLUA+B, ROUTINE - ONDANSETRON 4 MG DISINTEGRATING TABLET 3. Fever, unspecified - ICD9: 780.60, ICD10: R50.9 Only occurred on Sunday Has not had since - COVID WITH FLUA+B, ROUTINE 4. Generalized abdominal pain Diffuse and generalized pain No rebound. 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 Consider Theraworx topical foam for leg pain.muscle cramps Try to do stretching exercises before and after working around the house. Stay hydrated. documented in this encounter [facility] 08-09-2021 History of Present illness Narrative This note was created using NoteWriter. Subjective Shashank Espinoza is a 76 year old male. Patient presents with: 4 month follow up: c/o arthritis in right leg. SUBJECTIVE: Shashank Espinoza is a 76 year old year old gentleman here today for 4 month follow up appointment for review of medical conditions. Problems with taste and smell prior to 2019. Saw ENT before. Can taste sweets. Still has sinuses running. Was tried on allergy shots through Dr. Harris--no help. Flonase--not using routinely Goes to [place] now Tapering off the clonazepam--down to half pill daily. No change in symptoms. Been on this dose 2 months. Robaxin 4 times daily not really helpful. Still with posterior right leg pain. 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 Treated 3 times (twice in 90's); 3rd treatment effective Current Outpatient Medications Medication Sig methocarbamol (ROBAXIN) 500 mg tablet Take 1 tablet by mouth four times daily. as needed for pain, may make drowsy meloxicam (MOBIC) 15 mg tablet Take 1 tablet by mouth once daily. for pain. Take with food. clonazePAM (KLONOPIN) 1 mg tablet Take 0.5-1 tablets by mouth twice daily for 180 days. Do not start before March 23, 2021. fluticasone (FLONASE) 50 mcg/actuation nasal spray Use 2 Sprays in each nostril once daily as needed. Rinse mouth after use. traZODone (DESYREL) 100 mg tablet Take 1-2 tablets by mouth daily at bedtime. ([facility]) psyllium husk (KONSYL SUGAR-FREE) 6 gram/6 gram powd Take 1 Scoop by mouth once daily as needed. nitroglycerin sublingual (NITROQUICK) 0.4 mg SL tablet Dissolve 1 tablet under the tongue as needed. FOR CHEST PAIN. IF NO RELIEF CALL 911 levothyroxine (SYNTHROID) 50 mcg tablet Currently taking 1 pill daily except 1 day a week takes 2 pills (Sunday) ([facility]; dose [facility] to [facility]) (Patient taking differently: Currently taking 1 pill daily except 1 day a week takes 2 pills ( Sunday and Sunday) ([facility]; dose decreased to one pill daily [facility]) ) docusate sodium (COLACE) 100 mg capsule Take 1 capsule by mouth twice daily as needed for Constipation. atorvastatin (LIPITOR) 40 mg tablet Take 1 tablet by mouth once daily. For cholesterol. ([facility]) famotidine (PEPCID) 40 mg tablet Take 1 tablet by mouth twice daily. amLODIPine (NORVASC) 10 mg tablet Take 1 tablet by mouth once daily. 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 Cruz) losartan (COZAAR) 100 mg tablet Take 1 tablet by mouth once daily. Aspirin 81 mg ORAL Tab Take 162 mg by mouth once daily. Pt reported taking x2 daily current No current facility-administered medications for this visit. Review of Systems Objective BP 126/78 Pulse 72 Resp 16 Wt 77.6 kg (171 lb) BMI 24.19 kg/m Last 5 Encounter BP Readings: Date: BP: 08/09/2021 126/78 03/16/2021 118/70 02/22/2021 112/68 01/18/2021 99/59 12/08/2020 121/69 Last 5 Encounter Wt Readings: Date: Wt: 08/09/2021 77.6 kg (171 lb) 03/16/2021 78 kg (172 lb) 02/22/2021 76.7 kg (169 lb) 02/08/2021 79.2 kg (174 lb 9.6 oz) 01/18/2021 79.4 kg (175 lb) Physical Exam Vitals reviewed. Constitutional: Appearance: Normal appearance. Eyes: Conjunctiva/sclera: Conjunctivae normal. Cardiovascular: Rate and Rhythm: Normal rate and regular rhythm. Heart sounds: Normal heart sounds. Pulmonary: Effort: Pulmonary effort is normal. Breath sounds: Normal breath sounds. Skin: General: Skin is warm and dry. Neurological: General: No focal deficit present. Mental Status: He is alert and oriented to person, place, and time. Psychiatric: Mood and Affect: Mood normal. Behavior: Behavior normal. Thought Content: Thought content normal. Judgment: Judgment normal. Assessment and Plan Encounter Diagnosis ICD-10-CM 1. Mixed hyperlipidemia E78.2 LIPID PANEL BASIC 2. Hypertension goal BP (blood pressure) < 140/90 I10 COMP METABOLIC PANEL CBC 3. Acquired hypothyroidism E03.9 TSH BLD T4 FREE/FREE THYROX T3 FREE BLD 4. Right leg pain M79.604 5. Anxiety F41.9 6. Psychophysiological insomnia F51.04 7. 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 Already saw ENT. Can taste sweets 8. Medication management Z79.899 COMP METABOLIC PANEL CBC ASSESSMENT/PLAN: 1. Mixed hyperlipidemia - ICD9: 272.2, ICD10: E78.2 (primary diagnosis) - to be determined upon return of lab results - Continue current medication. - LIPID PANEL BASIC 2. Hypertension goal BP (blood pressure) < 140/90 - ICD9: 401.9, ICD10: I10 - good control - Continue current medication(s) - Recommended regular aerobic exercise. - Recommend home blood pressure monitoring, to bring results in on next visit - Goal of BP <130/80 - COMP METABOLIC PANEL - CBC 3. Acquired hypothyroidism - ICD9: 244.9, ICD10: E03.9 Clinically euthyroid. TSH fine. Continue to adjust dose of replacement as indicated based on symptoms and labs. - TSH BLD - T4 FREE/FREE THYROX - T3 FREE BLD 4. Right leg pain - ICD9: 729.5, ICD10: M79.604 Chronic pain, not improved with Robaxin, [facility], etc. as indicated, 5. Anxiety - ICD9: 300.00, ICD10: F41.9 Tapering off clonazepam and doing fine. No worse at lower dose. No withdrawal symptoms. 6. Psychophysiological insomnia - ICD9: 307.42, ICD10: F51.04 Stable at lower dose. 7. Problems with smell and taste - ICD9: V41.5, ICD10: R43.9 8. Medication management - ICD9: V58.69, ICD10: Z79.899 - COMP METABOLIC PANEL - CBC Yuval Dorantes MD Medical Decision Making: Problems: Moderate: 2+ stable chronic illnesses Data: Unique test(s) ordered: 3+ Risk: Moderate: Drug management Medical Decision Making Level: 4 - Moderate documented in this encounter [facility] 02-22-2021 History of Present illness Narrative Radiology Service Progress Note PATIENT NAME: Shashank Espinoza DATE OF SERVICE: February 22, 2021 TIME: 10:46 AM PATIENT IDENTITY VERIFICATION COMPLETED USING TWO (2) IDENTIFIERS: Name and Date of confirmed by patient verbally. FALL SCREENING: Has the patient had 2 falls in the last year or 1 fall with injury or currently using an Ambulatory Assistive Device (Walker, Cane, Wheelchair, Crutches, etc.)? No PATIENT GENDER DATA: Male PATIENT RELEVANT IMPLANT DATA REVIEWED: Yes RADIOLOGY DEPARTMENT: General X-ray: Exam(s) Completed: Spine X-Ray(s): Lumbar AP / LAT / L5-S1 PERIPHERAL IV DATA: Not applicable SIGNED BY: RT Magda(R) February 22, 2021 10:46 AM documented in this encounter [facility] 10-25-2015 History of Past i llness Narrative Problem Noted Date Resolved Date History of hepatitis C 10/25/2015 6 Overview: Treated again 2014 Epigastric pain 06/17/2015 02/16/2016 Hepatitis C, chronic 11/18/2014 10/25/2015 Acute gastritis without mention of hemorrhage 02/16/2016 Fatty liver 08/16/2009 02/17/2014 Open wound(s) (multiple) of unspecified site(s), without mention of complication 07/25/2006 09/19/2017 Chronic hepatitis C without mention of hepatic c shu 05/08/2005 02/16/2016 Hemorrhage of gastrointestinal tract, unspecifie d 05/08/2005 02/17/2014 documented as of this encounter (statuses as of 10/17/2021) [facility]04-11-2016 History of Past illness Narrative* Problem Noted Date Resolved Date History of hepatitis C 10/25/2015 6 Overview: Treated again 2014 Epigastric pain 06/17/2015 02/16/2016 Hepatitis C, chronic 11/18/2014 10/25/2015 Acute gastritis without mention of hemorrhage 02/16/2016 Fatty liver 08/16/2009 02/17/2014 Open wound(s) (multiple) of unspecified site(s), without mention of complication 07/25/2006 09/19/2017 Chronic hepatitis C without mention of hepatic c shu 05/08/2005 02/16/2016 Hemorrhage of gastrointestinal tract, unspecifie d 05/08/2005 02/17/2014 documented as of this encounter (statuses as of 10/18/2021) [facility]04-[facility]-2016 History of Past illness Narrative* Problem Noted Date Resolved Date History of hepatitis C 10/25/2015 6 Overview: Treated again 2014 Epigastric pain 06/17/2015 02/16/2016 Hepatitis C, chronic 11/18/2014 10/25/2015 Acute gastritis without mention of hemorrhage 02/16/2016 Fatty liver 08/16/2009 02/17/2014 Open wound(s) (multiple) of unspecified site(s), without mention of complication 07/25/2006 09/19/2017 Chronic hepatitis C without mention of hepatic c shu 05/08/2005 02/16/2016 Hemorrhage of gastrointestinal tract, unspecifie d 05/08/2005 02/17/2014 documented as of this encounter (statuses as of 10/21/2021) [facility]04[facility] History of Past illness Narrative* Problem Noted Date Resolved Date History of hepatitis C 10/25/2015 6 Overview: Treated again 2014 Epigastric pain 06/17/2015 02/16/2016 Hepatitis C, chronic 11/18/2014 10/25/2015 Acute gastritis without mention of hemorrhage 02/16/2016 Fatty liver 08/16/2009 02/17/2014 Open wound(s) (multiple) of unspecified site(s), without mention of complication 07/25/2006 09/19/2017 Chronic hepatitis C without mention of hepatic c shu 05/08/2005 02/16/2016 Hemorrhage of gastrointestinal tract, unspecifie d 05/08/2005 02/17/2014 documented as of this encounter (statuses as of 02/06/2022) [facility] History of Past illness Narrative* Problem Noted Date Resolved Date History of hepatitis C 10/25/2015 6 Overview: Treated again 2014 Epigastric pain 06/17/2015 02/16/2016 Hepatitis C, chronic 11/18/2014 10/25/2015 Acute gastritis without mention of hemorrhage 02/16/2016 Fatty liver 08/16/2009 02/17/2014 Open wound(s) (multiple) of unspecified site(s), without mention of complication 07/25/2006 09/19/2017 Chronic hepatitis C without mention of hepatic c shu 05/08/2005 02/16/2016 Hemorrhage of gastrointestinal tract, unspecifie d 05/08/2005 02/17/2014 documented as of this encounter (statuses as of 02/16/2022) [facility] History of Past illness Narrative* Problem Noted Date Resolved Date History of hepatitis C 10/25/2015 6 Overview: Treated again 2014 Epigastric pain 06/17/2015 02/16/2016 Hepatitis C, chronic 11/18/2014 10/25/2015 Acute gastritis without mention of hemorrhage 02/16/2016 Fatty liver 08/16/2009 02/17/2014 Open wound(s) (multiple) of unspecified site(s), without mention of complication 07/25/2006 09/19/2017 Chronic hepatitis C without mention of hepatic c shu 05/08/2005 02/16/2016 Hemorrhage of gastrointestinal tract, unspecifie d 05/08/2005 02/17/2014 documented as of this encounter (statuses as of 06/12/2022) [facility] History of Past illness Narrative* Problem Noted Date Resolved Date History of hepatitis C 10/25/2015 6 Overview: Treated again 2014 Epigastric pain 06/17/2015 02/16/2016 Hepatitis C, chronic 11/18/2014 10/25/2015 Acute gastritis without mention of hemorrhage 02/16/2016 Fatty liver 08/16/2009 02/17/2014 Open wound(s) (multiple) of unspecified site(s), without mention of complication 07/25/2006 09/19/2017 Chronic hepatitis C without mention of hepatic c shu 05/08/2005 02/16/2016 Hemorrhage of gastrointestinal tract, unspecifie d 05/08/2005 02/17/2014 documented as of this encounter (statuses as of 06/14/2022) [facility] History of Past illness Narrative* Problem Noted Date Resolved Date History of hepatitis C 10/25/2015 6 Overview: Treated again 2014 Epigastric pain 06/17/2015 02/16/2016 Hepatitis C, chronic 11/18/2014 10/25/2015 Acute gastritis without mention of hemorrhage 02/16/2016 Fatty liver 08/16/2009 02/17/2014 Open wound(s) (multiple) of unspecified site(s), without mention of complication 07/25/2006 09/19/2017 Chronic hepatitis C without mention of hepatic c shu 05/08/2005 02/16/2016 Hemorrhage of gastrointestinal tract, unspecifie d 05/08/2005 02/17/2014 documented as of this encounter (statuses as of 06/26/2022) [facility] History of Past illness Narrative* Problem Noted Date Resolved Date History of hepatitis C 10/25/2015 6 Overview: Treated again 2014 Epigastric pain 06/17/2015 02/16/2016 Hepatitis C, chronic 11/18/2014 10/25/2015 Acute gastritis without mention of hemorrhage 02/16/2016 Fatty liver 08/16/2009 02/17/2014 Open wound(s) (multiple) of unspecified site(s), without mention of complication 07/25/2006 09/19/2017 Chronic hepatitis C without mention of hepatic c shu 05/08/2005 02/16/2016 Hemorrhage of gastrointestinal tract, unspecifie d 05/08/2005 02/17/2014 documented as of this encounter (statuses as of 06/30/2022) [facility] History of Past illness Narrative* Problem Noted Date Resolved Date History of hepatitis C 10/25/2015 6 Overview: Treated again 2014 Epigastric pain 06/17/2015 02/16/2016 Hepatitis C, chronic 11/18/2014 10/25/2015 Acute gastritis without mention of hemorrhage 02/16/2016 Fatty liver 08/16/2009 02/17/2014 Open wound(s) (multiple) of unspecified site(s), without mention of complication 07/25/2006 09/19/2017 Chronic hepatitis C without mention of hepatic c shu 05/08/2005 02/16/2016 Hemorrhage of gastrointestinal tract, unspecifie d 05/08/2005 02/17/2014 documented as of this encounter (statuses as of 07/03/2022) [facility] History of Past illness Narrative* Problem Noted Date Resolved Date History of hepatitis C 10/25/2015 6 Overview: Treated again 2014 Epigastric pain 06/17/2015 02/16/2016 Hepatitis C, chronic 11/18/2014 10/25/2015 Acute gastritis without mention of hemorrhage 02/16/2016 Fatty liver 08/16/2009 02/17/2014 Open wound(s) (multiple) of unspecified site(s), without mention of complication 07/25/2006 09/19/2017 Chronic hepatitis C without mention of hepatic c shu 05/08/2005 02/16/2016 Hemorrhage of gastrointestinal tract, unspecifie d 05/08/2005 02/17/2014 documented as of this encounter (statuses as of 07/04/2022) [facility] History of Past illness Narrative* Problem Noted Date Resolved Date History of hepatitis C 10/25/2015 6 Overview: Treated again 2014 Epigastric pain 06/17/2015 02/16/2016 Hepatitis C, chronic 11/18/2014 10/25/2015 Acute gastritis without mention of hemorrhage 02/16/2016 Fatty liver 08/16/2009 02/17/2014 Open wound(s) (multiple) of unspecified site(s), without mention of complication 07/25/2006 09/19/2017 Chronic hepatitis C without mention of hepatic c shu 05/08/2005 02/16/2016 Hemorrhage of gastrointestinal tract, unspecifie d 05/08/2005 02/17/2014 documented as of this encounter (statuses as of 07/05/2022) [facility] History of Past illness Narrative* Problem Noted Date Resolved Date History of hepatitis C 10/25/2015 6 Overview: Treated again 2014 Epigastric pain 06/17/2015 02/16/2016 Hepatitis C, chronic 11/18/2014 10/25/2015 Acute gastritis without mention of hemorrhage 02/16/2016 Fatty liver 08/16/2009 02/17/2014 Open wound(s) (multiple) of unspecified site(s), without mention of complication 07/25/2006 09/19/2017 Chronic hepatitis C without mention of hepatic c shu 05/08/2005 02/16/2016 Hemorrhage of gastrointestinal tract, unspecifie d 05/08/2005 02/17/2014 documented as of this encounter (statuses as of 07/27/2022) [facility] History of Past illness Narrative* Problem Noted Date Resolved Date History of hepatitis C 10/25/2015 6 Overview: Treated again 2014 Epigastric pain 06/17/2015 02/16/2016 Hepatitis C, chronic 11/18/2014 10/25/2015 Acute gastritis without mention of hemorrhage 02/16/2016 Fatty liver 08/16/2009 02/17/2014 Open wound(s) (multiple) of unspecified site(s), without mention of complication 07/25/2006 09/19/2017 Chronic hepatitis C without mention of hepatic c shu 05/08/2005 02/16/2016 Hemorrhage of gastrointestinal tract, unspecifie d 05/08/2005 02/17/2014 documented as of this encounter (statuses as of 08/01/2022) [facility] History of Past illness Narrative* Problem Noted Date Resolved Date History of hepatitis C 10/25/2015 6 Overview: Treated again 2014 Epigastric pain 06/17/2015 02/16/2016 Hepatitis C, chronic 11/18/2014 10/25/2015 Acute gastritis without mention of hemorrhage 02/16/2016 Fatty liver 08/16/2009 02/17/2014 Open wound(s) (multiple) of unspecified site(s), without mention of complication 07/25/2006 09/19/2017 Chronic hepatitis C without mention of hepatic c shu 05/08/2005 02/16/2016 Hemorrhage of gastrointestinal tract, unspecifie d 05/08/2005 02/17/2014 documented as of this encounter (statuses as of 08/29/2022) [facility] History of Past illness Narrative* Problem Noted Date Resolved Date History of hepatitis C 10/25/2015 6 Overview: Treated again 2014 Epigastric pain 06/17/2015 02/16/2016 Hepatitis C, chronic 11/18/2014 10/25/2015 Acute gastritis without mention of hemorrhage 02/16/2016 Fatty liver 08/16/2009 02/17/2014 Open wound(s) (multiple) of unspecified site(s), without mention of complication 07/25/2006 09/19/2017 Chronic hepatitis C without mention of hepatic c shu 05/08/2005 02/16/2016 Hemorrhage of gastrointestinal tract, unspecifie d 05/08/2005 02/17/2014 documented as of this encounter (statuses as of 08/30/2022) [facility] History of Past illness Narrative* Problem Noted Date Resolved Date History of hepatitis C 10/25/2015 6 Overview: Treated again 2014 Epigastric pain 06/17/2015 02/16/2016 Hepatitis C, chronic 11/18/2014 10/25/2015 Acute gastritis without mention of hemorrhage 02/16/2016 Fatty liver 08/16/2009 02/17/2014 Open wound(s) (multiple) of unspecified site(s), without mention of complication 07/25/2006 09/19/2017 Chronic hepatitis C without mention of hepatic c shu 05/08/2005 02/16/2016 Hemorrhage of gastrointestinal tract, unspecifie d 05/08/2005 02/17/2014 documented as of this encounter (statuses as of 09/08/2022) [facility] History of Past illness Narrative* Problem Noted Date Resolved Date History of hepatitis C 10/25/2015 6 Overview: Treated again 2014 Epigastric pain 06/17/2015 02/16/2016 Hepatitis C, chronic 11/18/2014 10/25/2015 Acute gastritis without mention of hemorrhage 02/16/2016 Fatty liver 08/16/2009 02/17/2014 Open wound(s) (multiple) of unspecified site(s), without mention of complication 07/25/2006 09/19/2017 Chronic hepatitis C without mention of hepatic c shu 05/08/2005 02/16/2016 Hemorrhage of gastrointestinal tract, unspecifie d 05/08/2005 02/17/2014 documented as of this encounter (statuses as of 09/25/2022) [facility] History of Past illness Narrative* Problem Noted Date Resolved Date History of hepatitis C 10/25/2015 6 Overview: Treated again 2014 Epigastric pain 06/17/2015 02/16/2016 Hepatitis C, chronic 11/18/2014 10/25/2015 Acute gastritis without mention of hemorrhage 02/16/2016 Fatty liver 08/16/2009 02/17/2014 Open wound(s) (multiple) of unspecified site(s), without mention of complication 07/25/2006 09/19/2017 Chronic hepatitis C without mention of hepatic c shu 05/08/2005 02/16/2016 Hemorrhage of gastrointestinal tract, unspecifie d 05/08/2005 02/17/2014 documented as of this encounter (statuses as of 09/26/2022) [facility] History of Past illness Narrative* Problem Noted Date Resolved Date History of hepatitis C 10/25/2015 6 Overview: Treated again 2014 Epigastric pain 06/17/2015 02/16/2016 Hepatitis C, chronic 11/18/2014 10/25/2015 Acute gastritis without mention of hemorrhage 02/16/2016 Fatty liver 08/16/2009 02/17/2014 Open wound(s) (multiple) of unspecified site(s), without mention of complication 07/25/2006 09/19/2017 Chronic hepatitis C without mention of hepatic c shu 05/08/2005 02/16/2016 Hemorrhage of gastrointestinal tract, unspecifie d 05/08/2005 02/17/2014 documented as of this encounter (statuses as of 09/26/2022) [facility] History of Past illness Narrative* Problem Noted Date Resolved Date History of hepatitis C 10/25/2015 6 Overview: Treated again 2014 Epigastric pain 06/17/2015 02/16/2016 Hepatitis C, chronic 11/18/2014 10/25/2015 Acute gastritis without mention of hemorrhage 02/16/2016 Fatty liver 08/16/2009 02/17/2014 Open wound(s) (multiple) of unspecified site(s), without mention of complication 07/25/2006 09/19/2017 Chronic hepatitis C without mention of hepatic c shu 05/08/2005 02/16/2016 Hemorrhage of gastrointestinal tract, unspecifie d 05/08/2005 02/17/2014 documented as of this encounter (statuses as of 11/06/2022) [facility] History of Past illness Narrative* Problem Noted Date Diagnosed Date Resolved Date History of hepatitis C 10/25/201502/15 Overview: Treated again 2014 Epigastric pain 06/17/2015 02/16/2016 Hepatitis C, chronic 11/18/2014 016 Acute gastritis without mention of hemorrhage 10/11/19 11 02/16/2016 Fatty liver 08/16/2009 02/17/2014 Open wound(s) (multiple) of unspecified site(s), without mention of complication 07/25/2006 09/19/2017 Chronic hepatitis C without mention of hepatic coma 05/08/2005 02/16/2016 Hemorrhage of gastrointestin al tract, unspecified 05/08/2005 02/17/2014 documented as of this encounter (statuses as of 06/19/2023) [facility] History of Past illness Narrative* Problem Noted Date Diagnosed Date Resolved Date History of hepatitis C 10/25/201502/15 Overview: Treated again 2014 Epigastric pain 06/17/2015 02/16/2016 Hepatitis C, chronic 11/18/2014 016 Acute gastritis without mention of hemorrhage 10/11/1902/16/2016 Fatty liver 08/16/2009 02/17/2014 Open wound(s) (multiple) of unspecified site(s), without mention of complication 07/25/2006 09/19/2017 Chronic hepatitis C without mention of hepatic coma 05/08/2005 02/16/2016 Hemorrhage of gastrointestin al tract, unspecified 05/08/2005 02/17/2014 documented as of this encounter (statuses as of 10/15/2023) [facility] History of Past illness Narrative* Problem Noted Date Diagnosed Date Resolved Date History of hepatitis C 10/25/201502/15 Overview: Treated again 2014 Epigastric pain 06/17/2015 02/16/2016 Hepatitis C, chronic 11/18/2014 016 Acute gastritis without mention of hemorrhage 10/11/19 11 02/16/2016 Fatty liver 08/16/2009 02/17/2014 Open wound(s) (multiple) of unspecified site(s), without mention of complication 07/25/2006 09/19/2017 Chronic hepatitis C without mention of hepatic coma 05/08/2005 02/16/2016 Hemorrhage of gastrointestin al tract, unspecified 05/08/2005 02/17/2014 documented as of this encounter (statuses as of 10/16/2023) [facility] History of Past illness Narrative* Problem Noted Date Diagnosed Date Resolved Date History of hepatitis C 10/25/201502/15 Overview: Treated again 2014 Epigastric pain 06/17/2015 02/16/2016 Hepatitis C, chronic 11/18/2014 016 Acute gastritis without mention of hemorrhage 10/11/19 11 02/16/2016 Fatty liver 08/16/2009 02/17/2014 Open wound(s) (multiple) of unspecified site(s), without mention of complication 07/25/2006 09/19/2017 Chronic hepatitis C without mention of hepatic coma 05/08/2005 02/16/2016 Hemorrhage of gastrointestin al tract, unspecified 05/08/2005 02/17/2014 documented as of this encounter (statuses as of 10/16/2023) [facility] History of Past illness Narrative* Problem Noted Date Diagnosed Date Resolved Date History of hepatitis C 10/25/201502/15 Overview: Treated again 2014 Epigastric pain 06/17/2015 02/16/2016 Hepatitis C, chronic 11/18/2014 016 Acute gastritis without mention of hemorrhage 10/11/19 11 02/16/2016 Fatty liver 08/16/2009 02/17/2014 Open wound(s) (multiple) of unspecified site(s), without mention of complication 07/25/2006 09/19/2017 Chronic hepatitis C without mention of hepatic coma 05/08/2005 02/16/2016 Hemorrhage of gastrointestin al tract, unspecified 05/08/2005 02/17/2014 documented as of this encounter (statuses as of 11/01/2023) [facility] Evaluation note* Diagnosis Onset Date Resolution Status Thoracic aortic aneurysm without rupture September, acute Atherosclerosis of coronary artery of [place] heart without angina pectoris chronic Essential hypertension chron ic Hyperlipidemia chronic Presence of stent in coronary artery chronic [facility] Work Phone: Evaluation note* Diagnosis Viral illness- Primary Unspecified viral infection, in conditions classified elsewhere and of unspecified site Nausea vomiting and diarrhea Diarrhea Fever, unspecified Fever, unspecified [facility] Diagnosis Mixed hyperlipidemia- Primary Hypertension goal BP (blood pressure) < 140/90 Unspecified essential hypertension Acquired hypothyroidism Unspecified hypothyroidism Right leg pain Pain in limb Anxiety Anxiety state, unspecified Psychophysiological insomnia Persistent disorder of initiating or maintaining sleep Problems with smell and taste Medication management Encounter for long-term (current) use of other medications [facility] noteNo assessment information availableWProtest[facility] Work Phone: Evaluation note* Diagnosis Mixed hyperlipidemia- Primary Acquired hypothyroidism Unspecified hypothyroidism Hypertension goal BP (blood pressure) < 140/90 Unspecified essential hypertension Renal cyst, right Unspecified congenital cystic kidney disease Psychophysiological insomnia Persistent disorder of initiating or maintaining sleep Anxiety Anxiety state, unspecified [facility] Diagnosis Elevated prostate specific antigen (PSA)- Primary [facility]* Diagnosis Elevated prostate specific antigen (PSA)- Primary Benign prostatic hyperplasia with urinary retention documented in this encounter [facility] note* Diagnosis Onset Date Resolution Status TIA (transient ischemic attack) [facility] Work Phone: Evaluation note* Diagnosis TIA (transient ischemic attack)- Primary Unspecified transient cerebral ischemia Hyperglycemia, unspecified [facility]* Diagnosis TIA (transient ischemic attack)- Primary Unspecified transient cerebral ischemia Risk factors for obstructive sleep apnea Shortness of breath Imbalance Abnormality of gait [facility]* Diagnosis SOB (shortness of breath) Shortness of breath [facility]* Diagnosis Centrilobular emphysema (HCC)- Primary Other emphysema Former cigarette smoker Personal history of tobacco use, presenting hazards to health [facility]* Diagnosis Psychophysiological insomnia- Primary Persistent disorder of initiating or maintaining sleep Centrilobular emphysema (HCC) Other emphysema Anxiety Anxiety state, unspecified [facility] Diagnosis Elevated prostate specific antigen (PSA)- Primary Benign prostatic hyperplasia with urinary retention [facility]* Diagnosis Centrilobular emphysema (HCC)- Primary Other emphysema Lung nodule Solitary pulmonary nodule Former cigarette smoker Personal history of tobacco use, presenting hazards to health [facility] Diagnosis Lung nodules- Primary Other nonspecific abnormal finding of lung field Former smoker Personal history of tobacco use, presenting hazards to health Centrilobular emphysema (HCC) Other emphysema [facility] Diagnosis Lung nodules Other nonspecific abnormal finding of lung field Former smoker Personal history of tobacco use, presenting hazards to health Centrilobular emphysema (HCC) Other emphysema [facility]* Diagnosis Psychophysiological insomnia- Primary Persistent disorder of initiating or maintaining sleep Anxiety Anxiety state, unspecified Primary hypertension Unspecified essential hypertension [facility]* Diagnosis Elevated prostate specific antigen (PSA)- Primary [facility]* Diagnosis Elevated prostate specific antigen (PSA)- Primary [facility]* Diagnosis Elevated prostate specific antigen (PSA)- Primary Benign prostatic hyperplasia with urinary retention [facility]* Diagnosis Pre-operative examination- Primary Preoperative examination, unspecified Perianal wart Condyloma acuminatum Insomnia, unspecified type Coronary artery disease involving [place] coronary artery of [place] heart without angina pectoris Mixed hyperlipidemia Hypertension goal BP (blood pressure) < 140/90 Unspecified essential hypertension Adjustment disorder with depressed mood Occlusion of right carotid artery Occlusion and stenosis of carotid artery without mention of cerebral infarction History of aneurysm Personal history of other diseases of circulatory system S/P coronary artery stent placement Postsurgical percutaneous transluminal coronary angioplasty status Acquired hypothyroidism Unspecified hypothyroidism Acute bronchitis, unspecified organism Chronic cough Cough Hyperinflation of lungs Other symptoms involving respiratory system and chest SANDHU (dyspnea on exertion) Other dyspnea and respiratory abnormality [facility] Diagnosis Pre-operative examination- Primary Preoperative examination, unspecified Perianal wart Condyloma acuminatum Insomnia, unspecified type Coronary artery disease involving [place] coronary artery of [place] heart without angina pectoris Mixed hyperlipidemia Hypertension goal BP (blood pressure) < 140/90 Unspecified essential hypertension Adjustment disorder with depressed mood Occlusion of right carotid artery Occlusion and stenosis of carotid artery without mention of cerebral infarction History of aneurysm Personal history of other diseases of circulatory system S/P coronary artery stent placement Postsurgical percutaneous transluminal coronary angioplasty status Acquired hypothyroidism Unspecified hypothyroidism Centrilobular emphysema (HCC)- Primary Other emphysema [facility] Diagnosis Pre-operative examination- Primary Preoperative examination, unspecified Perianal wart Condyloma acuminatum Insomnia, unspecified type Coronary artery disease involving [place] coronary artery of [place] heart without angina pectoris Mixed hyperlipidemia Hypertension goal BP (blood pressure) < 140/90 Unspecified essential hypertension Adjustment disorder with depressed mood Occlusion of right carotid artery Occlusion and stenosis of carotid artery without mention of cerebral infarction History of aneurysm Personal history of other diseases of circulatory system S/P coronary artery stent placement Postsurgical percutaneous transluminal coronary angioplasty status Acquired hypothyroidism Unspecified hypothyroidism Acute bronchitis, unspecified organism- Primary Psychophysiological insomnia Persistent disorder of initiating or maintaining sleep Constipation, unspecified constipation type Chronic cough Cough Hyperinflation of lungs Other symptoms involving respiratory system and chest SANDHU (dyspnea on exertion) Other dyspnea and respiratory abnormality Anxiety Anxiety state, unspecified Acute bronchitis, unspecified organism Chronic cough Cough Hyperinflation of lungs Other symptoms involving respiratory system and chest SANDHU (dyspnea on exertion) Other dyspnea and respiratory abnormality Acute bronchitis, unspecified organism Chronic cough Cough Hyperinflation of lungs Other symptoms involving respiratory system and chest SANDHU (dyspnea on exertion) Other dyspnea and respiratory abnormality Acute bronchitis, unspecified organism Chronic cough Cough Hyperinflation of lungs Other symptoms involving respiratory system and chest SANDHU (dyspnea on exertion) Other dyspnea and respiratory abnormality [facility] Diagnosis Pre-operative examination- Primary Preoperative examination, unspecified Perianal wart Condyloma acuminatum Insomnia, unspecified type Coronary artery disease involving [place] coronary artery of [place] heart without angina pectoris Mixed hyperlipidemia Hypertension goal BP (blood pressure) < 140/90 Unspecified essential hypertension Adjustment disorder with depressed mood Occlusion of right carotid artery Occlusion and stenosis of carotid artery without mention of cerebral infarction History of aneurysm Personal history of other diseases of circulatory system S/P coronary artery stent placement Postsurgical percutaneous transluminal coronary angioplasty status Acquired hypothyroidism Unspecified hypothyroidism Lung nodules- Primary Other nonspecific abnormal finding of lung field Centrilobular emphysema (HCC) Other emphysema [facility] Diagnosis Pre-operative examination- Primary Preoperative examination, unspecified Perianal wart Condyloma acuminatum Insomnia, unspecified type Coronary artery disease involving [place] coronary artery of [place] heart without angina pectoris Mixed hyperlipidemia Hypertension goal BP (blood pressure) < 140/90 Unspecified essential hypertension Adjustment disorder with depressed mood Occlusion of right carotid artery Occlusion and stenosis of carotid artery without mention of cerebral infarction History of aneurysm Personal history of other diseases of circulatory system S/P coronary artery stent placement Postsurgical percutaneous transluminal coronary angioplasty status Acquired hypothyroidism Unspecified hypothyroidism Centrilobular emphysema (HCC)- Primary Other emphysema Lung nodules Other nonspecific abnormal finding of lung field [facility] Diagnosis Pre-operative examination- Primary Preoperative examination, unspecified Perianal wart Condyloma acuminatum Insomnia, unspecified type Coronary artery disease involving [place] coronary artery of [place] heart without angina pectoris Mixed hyperlipidemia Hypertension goal BP (blood pressure) < 140/90 Unspecified essential hypertension Adjustment disorder with depressed mood Occlusion of right carotid artery Occlusion and stenosis of carotid artery without mention of cerebral infarction History of aneurysm Personal history of other diseases of circulatory system S/P coronary artery stent placement Postsurgical percutaneous transluminal coronary angioplasty status Acquired hypothyroidism Unspecified hypothyroidism Chronic bilateral low back pain with bilateral sciatica [facility] Diagnosis Pre-operative examination- Primary Preoperative examination, unspecified Perianal wart Condyloma acuminatum Insomnia, unspecified type Coronary artery disease involving [place] coronary artery of [place] heart without angina pectoris Mixed hyperlipidemia Hypertension goal BP (blood pressure) < 140/90 Unspecified essential hypertension Adjustment disorder with depressed mood Occlusion of right carotid artery Occlusion and stenosis of carotid artery without mention of cerebral infarction History of aneurysm Personal history of other diseases of circulatory system S/P coronary artery stent placement Postsurgical percutaneous transluminal coronary angioplasty status Acquired hypothyroidism Unspecified hypothyroidism Acquired hypothyroidism- Primary Unspecified hypothyroidism Psychophysiological insomnia Persistent disorder of initiating or maintaining sleep Memory deficit Memory loss Anxiety Anxiety state, unspecified Encounter for immunization Need for other specified prophylactic vaccination against single bacterial disease Chronic obstructive pulmonary disease, unspecified COPD type (HCC) Essential (primary) hypertension Unspecified essential hypertension Need for vaccination Need for prophylactic vaccination and inoculation against unspecified single disease [facility] Diagnosis Pre-operative examination- Primary Preoperative examination, unspecified Perianal wart Condyloma acuminatum Insomnia, unspecified type Coronary artery disease involving [place] coronary artery of [place] heart without angina pectoris Mixed hyperlipidemia Hypertension goal BP (blood pressure) < 140/90 Unspecified essential hypertension Adjustment disorder with depressed mood Occlusion of right carotid artery Occlusion and stenosis of carotid artery without mention of cerebral infarction History of aneurysm Personal history of other diseases of circulatory system S/P coronary artery stent placement Postsurgical percutaneous transluminal coronary angioplasty status Acquired hypothyroidism Unspecified hypothyroidism Elevated prostate specific antigen (PSA)- Primary [facility] Diagnosis Pre-operative examination- Primary Preoperative examination, unspecified Perianal wart Condyloma acuminatum Insomnia, unspecified type Coronary artery disease involving [place] coronary artery of [place] heart without angina pectoris Mixed hyperlipidemia Hypertension goal BP (blood pressure) < 140/90 Unspecified essential hypertension Adjustment disorder with depressed mood Occlusion of right carotid artery Occlusion and stenosis of carotid artery without mention of cerebral infarction History of aneurysm Personal history of other diseases of circulatory system S/P coronary artery stent placement Postsurgical percutaneous transluminal coronary angioplasty status Acquired hypothyroidism Unspecified hypothyroidism Viral gastroenteritis- Primary Intestinal infection due to other organism, not elsewhere classified Essential (primary) hypertension Unspecified essential hypertension Centrilobular emphysema (HCC) Other emphysema [facility] Diagnosis Pre-operative examination- Primary Preoperative examination, unspecified Perianal wart Condyloma acuminatum Insomnia, unspecified type Coronary artery disease involving [place] coronary artery of [place] heart without angina pectoris Mixed hyperlipidemia Hypertension goal BP (blood pressure) < 140/90 Unspecified essential hypertension Adjustment disorder with depressed mood Occlusion of right carotid artery Occlusion and stenosis of carotid artery without mention of cerebral infarction History of aneurysm Personal history of other diseases of circulatory system S/P coronary artery stent placement Postsurgical percutaneous transluminal coronary angioplasty status Acquired hypothyroidism Unspecified hypothyroidism Lung nodules Other nonspecific abnormal finding of lung field Centrilobular emphysema (HCC) Other emphysema documented [facility] Diagnosis Pre-operative examination- Primary Preoperative examination, unspecified Perianal wart Condyloma acuminatum Insomnia, unspecified type Coronary artery disease involving [place] coronary artery of [place] heart without angina pectoris Mixed hyperlipidemia Hypertension goal BP (blood pressure) < 140/90 Unspecified essential hypertension Adjustment disorder with depressed mood Occlusion of right carotid artery Occlusion and stenosis of carotid artery without mention of cerebral infarction History of aneurysm Personal history of other diseases of circulatory system S/P coronary artery stent placement Postsurgical percutaneous transluminal coronary angioplasty status Acquired hypothyroidism Unspecified hypothyroidism Lung nodules- Primary Other nonspecific abnormal finding of lung field Pleural plaque without asbestos Pleurisy without mention of effusion or current tuberculosis Centrilobular emphysema (HCC) Other emphysema documented [facility] Diagnosis Pre-operative examination- Primary Preoperative examination, unspecified Perianal wart Condyloma acuminatum Insomnia, unspecified type Coronary artery disease involving [place] coronary artery of [place] heart without angina pectoris Mixed hyperlipidemia Hypertension goal BP (blood pressure) < 140/90 Unspecified essential hypertension Adjustment disorder with depressed mood Occlusion of right carotid artery Occlusion and stenosis of carotid artery without mention of cerebral infarction History of aneurysm Personal history of other diseases of circulatory system S/P coronary artery stent placement Postsurgical percutaneous transluminal coronary angioplasty status Acquired hypothyroidism Unspecified hypothyroidism Benign prostatic hyperplasia with urinary retention- Primary Elevated prostate specific antigen (PSA) documented [facility] Diagnosis Pre-operative examination- Primary Preoperative examination, unspecified Perianal wart Condyloma acuminatum Insomnia, unspecified type Coronary artery disease involving [place] coronary artery of [place] heart without angina pectoris Mixed hyperlipidemia Hypertension goal BP (blood pressure) < 140/90 Unspecified essential hypertension Adjustment disorder with depressed mood Occlusion of right carotid artery Occlusion and stenosis of carotid artery without mention of cerebral infarction History of aneurysm Personal history of other diseases of circulatory system S/P coronary artery stent placement Postsurgical percutaneous transluminal coronary angioplasty status Acquired hypothyroidism Unspecified hypothyroidism Prostate cancer (HCC)- Primary Malignant neoplasm of prostate Dysuria documented [facility] Diagnosis Pre-operative examination- Primary Preoperative examination, unspecified Perianal wart Condyloma acuminatum Insomnia, unspecified type Coronary artery disease involving [place] coronary artery of [place] heart without angina pectoris Mixed hyperlipidemia Hypertension goal BP (blood pressure) < 140/90 Unspecified essential hypertension Adjustment disorder with depressed mood Occlusion of right carotid artery Occlusion and stenosis of carotid artery without mention of cerebral infarction History of aneurysm Personal history of other diseases of circulatory system S/P coronary artery stent placement Postsurgical percutaneous transluminal coronary angioplasty status Acquired hypothyroidism Unspecified hypothyroidism Prostate cancer (HCC) Malignant neoplasm of prostate [facility] Diagnosis Pre-operative examination- Primary Preoperative examination, unspecified Perianal wart Condyloma acuminatum Insomnia, unspecified type Coronary artery disease involving [place] coronary artery of [place] heart without angina pectoris Mixed hyperlipidemia Hypertension goal BP (blood pressure) < 140/90 Unspecified essential hypertension Adjustment disorder with depressed mood Occlusion of right carotid artery Occlusion and stenosis of carotid artery without mention of cerebral infarction History of aneurysm Personal history of other diseases of circulatory system S/P coronary artery stent placement Postsurgical percutaneous transluminal coronary angioplasty status Acquired hypothyroidism Unspecified hypothyroidism Prostate cancer (HCC) Malignant neoplasm of prostate [facility] Diagnosis Pre-operative examination- Primary Preoperative examination, unspecified Perianal wart Condyloma acuminatum Insomnia, unspecified type Coronary artery disease involving [place] coronary artery of [place] heart without angina pectoris Mixed hyperlipidemia Hypertension goal BP (blood pressure) < 140/90 Unspecified essential hypertension Adjustment disorder with depressed mood Occlusion of right carotid artery Occlusion and stenosis of carotid artery without mention of cerebral infarction History of aneurysm Personal history of other diseases of circulatory system S/P coronary artery stent placement Postsurgical percutaneous transluminal coronary angioplasty status Acquired hypothyroidism Unspecified hypothyroidism Prostate cancer (HCC)- Primary Malignant neoplasm of prostate [facility] Diagnosis Pre-operative examination- Primary Preoperative examination, unspecified Perianal wart Condyloma acuminatum Insomnia, unspecified type Coronary artery disease involving [place] coronary artery of [place] heart without angina pectoris Mixed hyperlipidemia Hypertension goal BP (blood pressure) < 140/90 Unspecified essential hypertension Adjustment disorder with depressed mood Occlusion of right carotid artery Occlusion and stenosis of carotid artery without mention of cerebral infarction History of aneurysm Personal history of other diseases of circulatory system S/P coronary artery stent placement Postsurgical percutaneous transluminal coronary angioplasty status Acquired hypothyroidism Unspecified hypothyroidism Psychophysiological insomnia- Primary Persistent disorder of initiating or maintaining sleep Prostate cancer (HCC) Malignant neoplasm of prostate Anxiety Anxiety state, unspecified Essential (primary) hypertension Unspecified essential hypertension Centrilobular emphysema (HCC) Other emphysema documented [facility] Diagnosis Pre-operative examination- Primary Preoperative examination, unspecified Perianal wart Condyloma acuminatum Insomnia, unspecified type Coronary artery disease involving [place] coronary artery of [place] heart without angina pectoris Mixed hyperlipidemia Hypertension goal BP (blood pressure) < 140/90 Unspecified essential hypertension Adjustment disorder with depressed mood Occlusion of right carotid artery Occlusion and stenosis of carotid artery without mention of cerebral infarction History of aneurysm Personal history of other diseases of circulatory system S/P coronary artery stent placement Postsurgical percutaneous transluminal coronary angioplasty status Acquired hypothyroidism Unspecified hypothyroidism Prostate cancer (HCC)- Primary Malignant neoplasm of prostate documented [facility] Diagnosis Pre-operative examination- Primary Preoperative examination, unspecified Perianal wart Condyloma acuminatum Insomnia, unspecified type Coronary artery disease involving [place] coronary artery of [place] heart without angina pectoris Mixed hyperlipidemia Hypertension goal BP (blood pressure) < 140/90 Unspecified essential hypertension Adjustment disorder with depressed mood Occlusion of right carotid artery Occlusion and stenosis of carotid artery without mention of cerebral infarction History of aneurysm Personal history of other diseases of circulatory system S/P coronary artery stent placement Postsurgical percutaneous transluminal coronary angioplasty status Acquired hypothyroidism Unspecified hypothyroidism Prostate cancer (HCC)- Primary Malignant neoplasm of prostate [facility] Diagnosis Pre-operative examination- Primary Preoperative examination, unspecified Perianal wart Condyloma acuminatum Insomnia, unspecified type Coronary artery disease involving [place] coronary artery of [place] heart without angina pectoris Mixed hyperlipidemia Hypertension goal BP (blood pressure) < 140/90 Unspecified essential hypertension Adjustment disorder with depressed mood Occlusion of right carotid artery Occlusion and stenosis of carotid artery without mention of cerebral infarction History of aneurysm Personal history of other diseases of circulatory system S/P coronary artery stent placement Postsurgical percutaneous transluminal coronary angioplasty status Acquired hypothyroidism Unspecified hypothyroidism Prostate cancer (HCC)- Primary Malignant neoplasm of prostate Urinary frequency [facility]* Diagnosis Pre-operative examination- Primary Preoperative examination, unspecified Perianal wart Condyloma acuminatum Insomnia, unspecified type Coronary artery disease involving [place] coronary artery of [place] heart without angina pectoris Mixed hyperlipidemia Hypertension goal BP (blood pressure) < 140/90 Unspecified essential hypertension Adjustment disorder with depressed mood Occlusion of right carotid artery Occlusion and stenosis of carotid artery without mention of cerebral infarction History of aneurysm Personal history of other diseases of circulatory system S/P coronary artery stent placement Postsurgical percutaneous transluminal coronary angioplasty status Acquired hypothyroidism Unspecified hypothyroidism Prostate cancer (HCC)- Primary Malignant neoplasm of prostate [facility]* Diagnosis Onset Date Resolution Status Admit Date Brain TIA acute January 05 6:04pm Confusion acute January 05 6:04pm Expressive aphasia acute December [id number] 6:04pm Stuttering acute January 05 6:04pm [facility] Work Phone: Evaluation note* Diagnosis Pre-operative examination- Primary Preoperative examination, unspecified Perianal wart Condyloma acuminatum Insomnia, unspecified type Coronary artery disease involving [place] coronary artery of [place] heart without angina pectoris Mixed hyperlipidemia Hypertension goal BP (blood pressure) < 140/90 Unspecified essential hypertension Adjustment disorder with depressed mood Occlusion of right carotid artery Occlusion and stenosis of carotid artery without mention of cerebral infarction History of aneurysm Personal history of other diseases of circulatory system S/P coronary artery stent placement Postsurgical percutaneous transluminal coronary angioplasty status Acquired hypothyroidism Unspecified hypothyroidism Radiotherapy follow-up- Primary Radiotherapy follow-up examination Prostate cancer (HCC) Malignant neoplasm of prostate [facility] Author Sulema Schultz [facility] Note Date/Time January 05, 2025 6:13 pm [facility] Medical Records Department [address] [place] [address] H&P Exam - Hospitalist 01/05/25 1804 MR#: [id number] Acct: [id number] Name: SHASHANK ESPINOZA Rep #:[id number] : 1945 80 From: Sulema Schultz MD PCP: Dr. Yuval Dorantes MD Status:AD [facility] Location: [place] [id number] HPI - General General Date of Admission: 01/05/25 Date of Service: 01/05/25 Chief Complaint: Confusion and expressive aphasia HPI Narrative SHASHANK ESPINOZA, is a 80-year-old male history of CVA, chronic carotid artery occlusion, coronary artery disease with stenting, prostate cancer status post radiation finished 12/04/2024, hypertension, BPH, insomnia, hypothyroidism presented [facility] ED 01/05/2025 via EMS as a stroke alert due to difficulty with speech and confusion. Relatives report his last known well was 1 PM so stroke neurologist consulted. Per EMS upon arrival patient was confused with expressive aphasia and was stuttering his words and speech. In the ED patient temperature 97.9, heart rate of 90 with blood pressure 136/78, respiratory rate 18 and pulse ox 94% on room air. BMP without any overtly concerning findings, troponin of 15, CBC with a hemoglobin of 11.8 with baselineseem to be in the 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 Again these were unchanged from previous. Stroke neurology recommended admission for stroke workup. Hospitalist contacted for admission. Patient evaluated at bedside with family present, reportedly patient was in his normal health, at baseline he is very active and works in his yard and goes out to get food usually twice a day, but when his daughter called him earlier he wasconfused and could not get his words out so she called EMS. Patient now back tobaseline and awake and alert and answering questions appropriately and daughter at bedside reports he is back to baseline. Patient reports he did not sleep well last night and forgot to take his medicines so he feels little tired and like both of his eyes are little bit very, denies any numbness or tingling or focal weakness. Head a little bit of diarrhea earlier today but mentions something about one of his medications potentially causing that and his outpatient doctor saying he could hold off on that medication. Patient does urinate frequently since his radiation but this is unchanged. No nausea or vomiting no abdominal pain. Patient denies headache. [facility] Medical History Cancer of prostate Coronary artery disease Former smoker Asthma COPD (chronic obstructive pulmonary disease) Hypertension Stroke/cerebrovascular accident TIA (transient ischemic attack) Thoracic aortic aneurysm without rupture (~10/13/15) Claudication of both lower extremities Fatigue Nonruptured zhang aneurysm Snoring Hearing loss in left ear Disorder of bone and cartilage Anxiety Cerebellar atrophy Myocardial infarction, old History of hepatitis C Psychophysiological insomnia Depression Carotid artery occlusion (~06/2011) Atherosclerosis of coronary artery of [place] heart without angina pectoris Vertebral artery aneurysm (~06/2011) Alopecia Essential hypertension Hypothyroidism Vertigo Hyperlipidemia Home Medications ?Medication ?Instructions ?Recorded ?Last Taken ?Type losartan 100 mg tablet 100 mg PO DAILY Blood pressu re 10/14/15 01/05/25 History amlodipine 10 mg tablet 10 mg PO DAILY heart 9 01/05/25 History atorvastatin 40 mg tablet 40 mg PO QHS cholesterol 01/03/25 History famotidine 40 mg tablet 40 mg PO BID allergies 12/0401/05/25 History levothyroxine 50 mcg tablet 50 mcg PO DAILY thyroid 01/03/25 History nitroglycerin 0.4 mg sublingual 0.4 mg sublingual Q5-1 5M PRN Chest 12/04/18 Unknown History tablet Pain trazodone 100 mg tablet 200 mg PO QHS for sleep 12/1401/03/25 History clonazepam 1 mg tablet 1 mg PO BID PRN Insomnia 01/03/25 History aspirin 81 mg tablet,delayed 81 mg PO DAILY 07/11/22 0 01/03/25 History release (Adult Aspirin Regimen) tamsulosin 0.4 mg capsule (Flomax) 0.4 mg PO DAILY 01/03/25 History Allergy/AdvReac Type Severity Reaction Status Date / Time No Known Allergies Allergy Verified 07/21/24 12:21 Family History Father CHF (congestive heart failure) Mother Cancer stomach Surgical History History of coronary artery stent placement Presence of stent in coronary artery History of hemorrhoidectomy Benign neoplasm of large bowel Social History Smoking Status: Former smoker how long ago did patient quit smokin years ago alcohol intake: never substance use type: does not use caffeine: Yes Type: coffee Number of servings: 5 ROS ROS Narrative General: Denies fever/chills HENT: Denies headache, denies stuffy nose, denies sore throat EYES: Feels his vision is a little blurred because he is tired Resp: Denies cough, denies shortness of breath Cardiac: Denies chest pain GI: Denies abdominal pain, had a little bit of diarrhea earlier today, denies nausea/vomiting : Urinates frequently but denies this changing Extremity: Denies swelling MSK: Denies weakness Neuro: Denies any numbness/tingling, speaking back to normal, no longer confused Heme: Denies any bleeding or bruising Skin: Denies rashes Psychiatric: No complaints voiced Vital Signs Vital Signs Vital Signs: 01/05/25 16:16 01/05/25 16:21 01/05/25 16:22 Temperature 97.9 F 99.3 F H Temperature Source Temporal Oral Pulse Rate 90 90 75 Respiratory Rate 18 16 16 Blood Pressure 136/78 H 136/78 H 135/86 H Blood Pressure Mean 97 97 102 Pulse Ox 94 94 91 Oxygen Delivery Method Room Air Room Air Oxygen Flow Rate (L/min) 01/05/25 16:35 01/05/25 16:39 01/05/25 16:52 Temperature Temperature Source Pulse Rate 73 Respiratory Rate 16 Blood Pressure 129/82 H Blood Pressure Mean 97 Pulse Ox 95 97 95 Oxygen Delivery Method Room Air Nasal Cannula Nasal Cannula Oxygen Flow Rate (L/min) 2 2 01/05/25 17:22 01/05/25 17:30 01/05/25 17:58 Temperature 99.3 F H Temperature Source Pulse Rate 72 78 80 Respiratory Rate 17 15 18 Blood Pressure 135/88 H 141/93 H 138/79 H Blood Pressure Mean 103 109 98 Pulse Ox 95 97 95 Oxygen Delivery Method Room Air Room Air Oxygen Flow Rate (L/min) 01/05/25 18:00 Temperature Temperature Source Pulse Rate 83 Respiratory Rate 17 Blood Pressure 138/79 H Blood Pressure Mean 98 Pulse Ox 95 Oxygen Delivery Method Nasal Cannula Oxygen Flow Rate (L/min) 2 Weight Weight: 71 kg Body Mass Index (BMI) 22.4 Physical Exam Narrative General: Alert, oriented, no apparent distress HEENT: Atraumatic, normocephalic, poor dentition Eyes: Anicteric, normal conjunctiva, extraocular movements intact, pupils equal Neck: Supple Respiratory: Clear to auscultation bilaterally, normal respiratory effort Cardiovascular: Regular rate and rhythm GI: Soft, nontender, nondistended Extremities: No edema Musculoskeletal: Strength 5 out of 5 in right upper extremity, 5 out of 5 left upper extremity, 5 out of 5 right lower extremity, 5 out of 5 left lower extremity Neuro: No overt focal neurological deficits, cranial nerves II through XII intact, [id number] without significant difficulty bilaterally Skin: No rashes appreciated, some scattered bruises Psych: Cooperative Results Lab / Micro Data 01/05/25 16:30 01/05/25 16:30 Labs: Laboratory Results - last 24 hr 01/05/25 16:30: WBC 5.9, RBC 3.81 L, Hgb 11.8 L, Hct 36.2 L, MCV 95.0 H, MCH 31.0, MCHC 32.6, RDW Std Deviation 46.9 H, RDW Coeff of Jacky 13.4, Plt Count 137 L, MPV 10.0, Immature Gran % (Auto) 0.300, Neut % (Auto) 85.1 H, Lymph % (Auto) 7.3 L, [place] % (Auto) 5.8, Eos % (Auto) 1.2, Baso % (Auto) 0.3, Absolute Neuts (auto) 5.0, Absolute Lymphs (auto) 0.43 L, Nucleated RBC % 0, PT 14.9, INR 1.1, APTT 27.0, Sodium 137, Potassium 3.4, Chloride 103, Carbon Dioxide 22.5, Anion Gap 12, BUN 14, Creatinine 1.11, Estim Creat Clear Calc 55.08, Est GFR (MDRD) Non-Af 68, BUN/Creatinine Ratio 13.0, Glucose 112 H, Calcium 8.4, Troponin T High Sens 15 Imaging Radiology Impression Brain CT 01/05/25 16:22 IMPRESSION: No evidence of an acute intracranial abnormality. Consider MRI if there is persistent concern for acute ischemia. The critical information above was relayed directly by me by telephone to Jose Baldwin on 01/05/2025 at 4:34 pm with readback verification. Reading Location: [id number] Head/Neck CTA 01/05/25 16:24 IMPRESSION: 1. No new large vessel occlusion or hemodynamically significant narrowing. 2. 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 and hemodynamically significant narrowing of the left vertebral artery V4 segment -MRI ordered -NIH q4hr -asa, statin -Echo -PT/OT/Speech eval -Teleneuro consult ordered -Hold BP medications to allow for permissive hypertension for 24 hours unless SBP greater than 220 or DBP greater than 120 or until stroke is ruled out - Will check UA # History of coronary artery disease with stenting - Continue aspirin and statin #Chronic BPH with obstruction -Continue home medications #Hypothyroidism -Continue Synthroid #Hypertension - Holding home medications to allow for permissive hypertension #GERD -Continue famotidine #DVT ppx: SCDs Sulema Schultz MD Charges/Coding Visit Charges Inpatient E&M: 62302 Init Hosp L2 01/05/25 1813 <Electronically signed by Sulema Schultz MD> Cosigner Signature (if applicable): CC: Dr. Yuval Dorantes MD; Dr. Sulema Schultz MD~ Signed [facility] Work Phone: [facility] for referral (narrative)* Outpatient Procedure (Routine) - Closed Specialty Diagnoses / Procedures Referred By Abraham t Referred To Contact [facility] Diagnoses SOB (shortness of breath) Procedures SPIROMETRY WITH DILATOR IF OBSTRUCTED BRNCDILAT RSPSE SPMTRY PRE&POST-BRNCDILAT Carla Ortiz MD [address] [place] [address] Respiratory [place] [address] [place], [place] [id number] Referral ID Status Reason Start Date Expiration Date V isits Requested Visits Authorized [id number] Closed Auto-Generated Referral Patient Cleared - INN Insurance Found 09/25/2022 10/25/2023 1 1 [facility] for referral (narrative)* Outpatient Procedure (Routine) - Pending Review Specialty Diagnoses / Procedures Referred By Abraham ahumada Referred To Contact [facility] Diagnoses Elevated prostate specific antigen (PSA) Procedures PROSTATE BIOPSY GUKI PROSTATE NEEDLE BIOPSY ANY APPROACH US, TRANSRECTAL URNLS DIP STICK/TABLET RGNT AUTO W/O MICROSCOPY US GUIDANCE NEEDLE PLACEMENT IMG S&I Porsha Meadows PA-C [address] [place] [address] [address] Referral ID Status Reason Start Date Expiration Date Visits Requested Visits Authorized [id number] Pending Review Auto-Generat ed Referral 01/01/2024 12/31/2024 1 1 [facility] for referral (narrative)* Outpatient Procedure (Routine) - Closed Specialty Diagnoses / Procedures Referred By Contac t Referred To [facility] Diagnoses Acute bronchitis, unspecified organism Chronic cough Hyperinflation of lungs SANDHU (dyspnea on exertion) Procedures SPIROMETRY - BASELINE AND POST DILATOR BRNCDILAT RSPSE SPMTRY PRE&POST-BRNCDILAT ADMN Yuval Dorantes MD [address] [place] [address] [address] Referral ID Status Reason Start Date Expiration Date V isits Requested Visits Authorized [id number] Closed Auto-Generate d Referral 01/31/2024 03/01/2025 1 1 * Outpatient Procedure (Routine) - Closed Specialty Diagnoses / Procedures Referred By Contac t Referred To [facility] Diagnoses Acute bronchitis, unspecified organism Chronic cough Hyperinflation of lungs SANDHU (dyspnea on exertion) Procedures LUNG DIFFUSION CAPACITY (DLCO) DIFFUSING CAPACITY Yuval Dorantes MD [address] [place] [address] [address] Referral ID Status Reason Start Date Expiration Date V isits Requested Visits Authorized [id number] Closed Auto-Generate d Referral 01/31/2024 03/01/2025 1 1 * Outpatient Procedure (Routine) - Closed Specialty Diagnoses / Procedures Referred By Contac t Referred To [facility] Diagnoses Acute bronchitis, unspecified organism Chronic cough Hyperinflation of lungs SANDHU (dyspnea on exertion) Procedures LUNG VOLUMES Yuval Dorantes MD [address] [place] [address] [address] Referral ID Status Reason Start Date Expiration Date V isits Requested Visits Authorized [id number] Closed Auto-Generate d Referral 01/31/2024 03/01/2025 1 1 [facility] for referral (narrative)* Diagnostic Procedure Only (Routine) - Closed Specialty Diagnoses / Procedures Referred By Contac t Referred To Contact XR IMAGING Diagnoses Chronic bilateral low back pain with bilateral sciatica Procedures XR LUMBAR GENERAL 3V AP/LAT/L5-S1 X-RAY L-S SPINE AP/LATERAL Valerie Alvarez APRN.LINTER OPERATOR [address] [place] [address] [place] [address] Referral ID Status Reason Start Date Expiration Date V isits Requested Visits Authorized [id number] Closed Auto-Generate d Referral 02/22/2021 03/24/2022 1 1 [facility] for referral (narrative)No reason for referral information availableWPro[facility] Work Phone: [facility] for visit Narrative* Diagnostic Procedure Only (Routine) - Closed Specialty Diagnoses / Procedures Referred By Contac t Referred To Contact XR IMAGING Diagnoses Chronic bilateral low back pain with bilateral sciatica Procedures XR LUMBAR GENERAL 3V AP/LAT/L5-S1 X-RAY L-S SPINE AP/LATERAL Valerie Alvarez, 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.LINTER OPERATOR [address] [place] [address] [place] [address] Referral ID Status Reason Start Date Expiration Date V isits Requested Visits Authorized [id number] Closed Auto-Generate d Referral 02/22/2021 03/24/2022 1 1 [facility] for visit Narrative* Diagnostic Procedure Only (Routine) - Closed Specialty Diagnoses / Procedures Referred By Contac t Referred To Contact [facility] Diagnoses Prostate cancer (HCC) Procedures NM PET/CT PROSTATE WHOLE BODY IMAGING PET IMAGING CT ATTENUATION SKULL BASE MID-THIGH An Henley Jr., MD [address] [place] [address] Phone: tel: fax: Molecular Imaging [address] [place] [address] Phone: tel: Referral ID Status Reason Start Date Expiration Date V isits Requested Visits Authorized [id number] Closed Auto-Generate d Referral 10/01/2024 10/31/2025 1 1 [facility] Medications Administered Section Inactive Administered Medications - up to 3 most recent administrations Medication Order MAR Action Action Date Dose Rate Site ondansetron orally disintegrating 8 mg tab(s) (ZOFRAN ODT) 8 mg, ORAL, ONCE, 1 dose, On Sun10/17/21 at 1730, Place tablet on tongue and allow to dissolve; do not chew. Open packaging using dry hands; do not push tablet through packaging. Given 10/17/2021 5:07 PM EDT 8 mg Oral Health Concerns Infection Onset Date Last Indicated Resolved Time COVID-19 Rule-Out 10/17/2021 10/17/2021 Infection Onset Date Last Indicated Resolved Time COVID-19 Rule-Out 10/17/2021 10/17/2021 10/18/2021 8:22 AM EDT Advance Directives Documents on File Type Date Recorded Patient Multi Media Specialist Expl anation Advance Directive(s) 12/08/2020 12:05 PM Advance Directive(s) 10/21/2020 9:21 AM Advance Directive(s) 10/03/2016 12:30 PM Advance Directive Response Recorded Date/ Time Advance Directives No October 13 016 4:10pm Living Will Yes October 14, 2015 4:10pm Power of Rn Ortho Yes October 13 4:10pm Advance Directive Response Recorded Date/ Time Advance Directives No October 13 016 3:10pm Living Will No June 23 1:07pm Power of Rn Ortho Yes June 23, 2022 1:07pm Name of Medical Power of Rn Ortho SISTER June 23, 2022 1:07pm Advance Directive Response Recorded Date/ Time Name of Medical Power of Rn Ortho Liberty Marks June 23, 2022 4:42pm Advance Directives No October 13 016 3:10pm Living Will Yes June 23 4:42pm Power of Rn Ortho Yes June 23, 2022 4:42pm Advance Directive Response Recorded Date/ Time Name of Medical Power of Rn Ortho Liberty Marks June 23, 2022 5:42pm Advance Directives No October 13 016 4:10pm Living Will Yes June 23 5:42pm Power of Rn Ortho Yes June 23, 2022 5:42pm Advance Directive Response Recorded Date/ Time Advance Directives No October 13 016 4:10pm Living Will Yes June 23 5:42pm Power of Rn Ortho Yes June 23, 2022 5:42pm Advance Directive Response Recorded Date/ Time Advance Directives No October 13 3:10pm Living Will Yes June 23 4:42pm Power of Rn Ortho Yes June 23, 2022 4:42pm Advance Directive Response Recorded Date/ Time Living Will No July 21 1:21pm Do you have a Healthcare Power of Rn Ortho? No July 21, 2024 1:21pm Advance Directives No October 13 4:10pm Advance Directive Response Recorded Date/ Time Do you have a Healthcare Power of Rn Ortho? Yes January 05, 2025 4:31pm Name of Medical Power of Rn Ortho Enedelia Hill January 05, 2025 4:31pm Advance Directives No October 13 4:10pm Chief Complaint and Reason for Visit Chief Complaint L/R CAROTID ARTERY S TENOSIS THORACIC AORTIC ANEURYSM Chief Complaint CVA Chief Complaint CVA Cerebrovascular accident Reason for Visit TIA (transient ische vida attack) Chief Complaint CVA Cerebrovascular accident Cerebrovascular accident TIA Chief Complaint 1 Y FU TAA F/U Reason for Visit Thoracic aortic aneu rysm without rupture Atherosclerosis of coronary artery of [place] heart without angina pectoris Essential hypertension Hyperlipidemia Presence of stent in coronary artery Chief Complaint STROKE Chief Complaint Admit Date DIARRHEA July 21, 2024 12 :19pm STROKE September 23, 2024 9:4 1am Chief Complaint Admit Date STROKE September 23, 2024 9:4 1am TIA/CVA RULE OUT January 05, 2025 6:04 pm Reason for Visit Admit Date Brain TIA January 05, 2025 6:04 pm Confusion January 05, 2025 6:04 pm Expressive aphasia January 05, 2025 6:04 pm Stuttering January 05, 2025 6:04 pm Family History Relationship Condition Age at Onset Recorded Date/T musa father Congestive heart failure Unknown mother Malignant neoplasm Unknown Reason for Referral Specialty Diagnoses / Procedures Referred By Contac t Referred To Contact CT IMAGING Diagnoses Lung nodules Former smoker Centrilobular emphysema (HCC) Procedures CT CHEST WO IVCON DIAGNOSTIC COMPUTED TOMOGRAPHY THORAX W/O Carla Molina MD [address] [place] [address] Ct Imaging [facility] Referral ID Status Reason Start Date Expiration Date Visits Requested Visits Authorized [id number] Pending Review Auto-Generat ed Referral 10/15/2023 11/13/2024 1 1 Specialty Diagnoses / Procedures Referred By Contac t Referred To Contact CT IMAGING Diagnoses Lung nodules Centrilobular emphysema (HCC) Procedures CT CHEST WO IVCON DIAGNOSTIC COMPUTED TOMOGRAPHY THORAX W/O Carla Molina MD [address] [place] [address] Ct Imaging [facility] Referral ID Status Reason Start Date Expiration Date Visits Requested Visits Authorized [id number] New Request Auto-Generat ed Referral 07/21/2024 04/13/2025 1 1 Specialty Diagnoses / Procedures Referred By Contac t Referred To Contact CT IMAGING Diagnoses Lung nodules Pleural plaque without asbestos Procedures CT CHEST WO IVCON DIAGNOSTIC COMPUTED TOMOGRAPHY THORAX W/O Carla Molina MD [address] [place] [address] Ct Imaging [facility] Referral ID Status Reason Start Date Expiration Date Visits Requested Visits Authorized [id number] Authorized Auto-Generat ed Referral 08/11/2025 09/10/2025 1 1 Summary Purpose Additional Source Comments Source Comments (unrecognize d section and content) In the event this informatio n is protected by the Federal Confidentiality of Alcohol and Drug Abuse Patient Records regulations: The Federal rules restrict any use of the information to criminally investigate or prosecute any alcohol or drug abuse patient.[facility] the event this information is protected by the Federal Confidentiality of Alcohol and Drug Abuse Patient Records regulations: The Federal rules restrict any use of the information to criminally investigate or prosecute any alcohol or drug abuse patient.[facility] the event this information is protected by the Federal Confidentiality of Alcohol and Drug Abuse Patient Records regulations: The Federal rules restrict any use of the information to criminally investigate or prosecute any alcohol or drug abuse patient.[facility] the event this information is protected by the Federal Confidentiality of Alcohol and Drug Abuse Patient Records regulations: The Federal rules restrict any use of the information to criminally investigate or prosecute any alcohol or drug abuse patient.[facility] the event this information is protected by the Federal Confidentiality of Alcohol and Drug Abuse Patient Records regulations: The Federal rules restrict any use of the information to criminally investigate or prosecute any alcohol or drug abuse patient.[facility] the event this information is protected by the Federal Confidentiality of Alcohol and Drug Abuse Patient Records regulations: The Federal rules restrict any use of the information to criminally investigate or prosecute any alcohol or drug abuse patient.[facility] the event this information is protected by the Federal Confidentiality of Alcohol and Drug Abuse Patient Records regulations: The Federal rules restrict any use of the information to criminally investigate or prosecute any alcohol or drug abuse patient.[facility] the event this information is protected by the Federal Confidentiality of Alcohol and Drug Abuse Patient Records regulations: The Federal rules restrict any use of the information to criminally investigate or prosecute any alcohol or drug abuse patient.[facility] the event this information is protected by the Federal Confidentiality of Alcohol and Drug Abuse Patient Records regulations: The Federal rules restrict any use of the information to criminally investigate or prosecute any alcohol or drug abuse patient.[facility] the event this information is protected by the Federal Confidentiality of Alcohol and Drug Abuse Patient Records regulations: The Federal rules restrict any use of the information to criminally investigate or prosecute any alcohol or drug abuse patient.[facility] the event this information is protected by the Federal Confidentiality of Alcohol and Drug Abuse Patient Records regulations: The Federal rules restrict any use of the information to criminally investigate or prosecute any alcohol or drug abuse patient.[facility] the event this information is protected by the Federal Confidentiality of Alcohol and Drug Abuse Patient Records regulations: The Federal rules restrict any use of the information to criminally investigate or prosecute any alcohol or drug abuse patient.[facility] Hospital[facility] the event this information is protected by the Federal Confidentiality of Alcohol and Drug Abuse Patient Records regulations: The Federal rules restrict any use of the information to criminally investigate or prosecute any alcohol or drug abuse patient.[facility] Hospital[facility] the event this information is protected by the Federal Confidentiality of Alcohol and Drug Abuse Patient Records regulations: The Federal rules restrict any use of the information to criminally investigate or prosecute any alcohol or drug abuse patient.[facility] Hospital[facility] the event this information is protected by the Federal Confidentiality of Alcohol and Drug Abuse Patient Records regulations: The Federal rules restrict any use of the information to criminally investigate or prosecute any alcohol or drug abuse patient.[facility] Hospital[facility] the event this information is protected by the Federal Confidentiality of Alcohol and Drug Abuse Patient Records regulations: The Federal rules restrict any use of the information to criminally investigate or prosecute any alcohol or drug abuse patient.[facility] HospitalIn the event this information is protected by the Federal Confidentiality of Alcohol and Drug Abuse Patient Records regulations: The Federal rules restrict any use of the information to criminally investigate or prosecute any alcohol or drug abuse patient.[facility] HospitalIn the event this information is protected by the Federal Confidentiality of Alcohol and Drug Abuse Patient Records regulations: The Federal rules restrict any use of the information to criminally investigate or prosecute any alcohol or drug abuse patient.[facility] HospitalIn the event this information is protected by the Federal Confidentiality of Alcohol and Drug Abuse Patient Records regulations: The Federal rules restrict any use of the information to criminally investigate or prosecute any alcohol or drug abuse patient.[facility] HospitalIn the event this information is protected by the Federal Confidentiality of Alcohol and Drug Abuse Patient Records regulations: The Federal rules restrict any use of the information to criminally investigate or prosecute any alcohol or drug abuse patient.[facility] HospitalIn the event this information is protected by the Federal Confidentiality of Alcohol and Drug Abuse Patient Records regulations: The Federal rules restrict any use of the information to criminally investigate or prosecute any alcohol or drug abuse patient.[facility] [facility] HospitalIn the event this information is protected by the Federal Confidentiality of Alcohol and Drug Abuse Patient Records regulations: The Federal rules restrict any use of the information to criminally investigate or prosecute any alcohol or drug abuse patient.[facility]In the event this information is protected by the Federal Confidentiality of Alcohol and Drug Abuse Patient Records regulations: The Federal rules restrict any use of the information to criminally investigate or prosecute any alcohol or drug abuse patient.[facility] HospitalIn the event this information is protected by the Federal Confidentiality of Alcohol and Drug Abuse Patient Records regulations: The Federal rules restrict any use of the information to criminally investigate or prosecute any alcohol or drug abuse patient.[facility] HospitalIn the event this information is protected by the Federal Confidentiality of Alcohol and Drug Abuse Patient Records regulations: The Federal rules restrict any use of the information to criminally investigate or prosecute any alcohol or drug abuse patient.[facility] HospitalIn the event this information is protected by the Federal Confidentiality of Alcohol and Drug Abuse Patient Records regulations: The Federal rules restrict any use of the information to criminally investigate or prosecute any alcohol or drug abuse patient.[facility] HospitalIn the event this information is protected by the Federal Confidentiality of Alcohol and Drug Abuse Patient Records regulations: The Federal rules restrict any use of the information to criminally investigate or prosecute any alcohol or drug abuse patient.[facility] HospitalIn the event this information is protected by the Federal Confidentiality of Alcohol and Drug Abuse Patient Records regulations: The Federal rules restrict any use of the information to criminally investigate or prosecute any alcohol or drug abuse patient.[facility] HospitalIn the event this information is protected by the Federal Confidentiality of Alcohol and Drug Abuse Patient Records regulations: The Federal rules restrict any use of the information to criminally investigate or prosecute any alcohol or drug abuse patient.[facility] HospitalIn the event this information is protected by the Federal Confidentiality of Alcohol and Drug Abuse Patient Records regulations: The Federal rules restrict any use of the information to criminally investigate or prosecute any alcohol or drug abuse patient.[facility] HospitalIn the event this information is protected by the Federal Confidentiality of Alcohol and Drug Abuse Patient Records regulations: The Federal rules restrict any use of the information to criminally investigate or prosecute any alcohol or drug abuse patient.[facility] HospitalIn the event this information is protected by the Federal Confidentiality of Alcohol and Drug Abuse Patient Records regulations: The Federal rules restrict any use of the information to criminally investigate or prosecute any alcohol or drug abuse patient.[facility] HospitalIn the event this information is protected by the Federal Confidentiality of Alcohol and Drug Abuse Patient Records regulations: The Federal rules restrict any use of the information to criminally investigate or prosecute any alcohol or drug abuse patient.[facility] HospitalIn the event this information is protected by the Federal Confidentiality of Alcohol and Drug Abuse Patient Records regulations: The Federal rules restrict any use of the information to criminally investigate or prosecute any alcohol or drug abuse patient.[facility] HospitalIn the event this information is protected by the Federal Confidentiality of Alcohol and Drug Abuse Patient Records regulations: The Federal rules restrict any use of the information to criminally investigate or prosecute any alcohol or drug abuse patient.[facility] HospitalIn the event this information is protected by the Federal Confidentiality of Alcohol and Drug Abuse Patient Records regulations: The Federal rules restrict any use of the information to criminally investigate or prosecute any alcohol or drug abuse patient.[facility] HospitalIn the event this information is protected by the Federal Confidentiality of Alcohol and Drug Abuse Patient Records regulations: The Federal rules restrict any use of the information to criminally investigate or prosecute any alcohol or drug abuse patient.[facility] HospitalIn the event this information is protected by the Federal Confidentiality of Alcohol and Drug Abuse Patient Records regulations: The Federal rules restrict any use of the information to criminally investigate or prosecute any alcohol or drug abuse patient.[facility] HospitalIn the event this information is protected by the Federal Confidentiality of Alcohol and Drug Abuse Patient Records regulations: The Federal rules restrict any use of the information to criminally investigate or prosecute any alcohol or drug abuse patient.[facility] HospitalIn the event this information is protected by the Federal Confidentiality of Alcohol and Drug Abuse Patient Records regulations: The Federal rules restrict any use of the information to criminally investigate or prosecute any alcohol or drug abuse patient.[facility] HospitalIn the event this information is protected by the Federal Confidentiality of Alcohol and Drug Abuse Patient Records regulations: The Federal rules restrict any use of the information to criminally investigate or prosecute any alcohol or drug abuse patient.[facility] HospitalIn the event this information is protected by the Federal Confidentiality of Alcohol and Drug Abuse Patient Records regulations: The Federal rules restrict any use of the information to criminally investigate or prosecute any alcohol or drug abuse patient.[facility] HospitalIn the event this information is protected by the Federal Confidentiality of Alcohol and Drug Abuse Patient Records regulations: The Federal rules restrict any use of the information to criminally investigate or prosecute any alcohol or drug abuse patient.[facility] HospitalIn the event this information is protected by the Federal Confidentiality of Alcohol and Drug Abuse Patient Records regulations: The Federal rules restrict any use of the information to criminally investigate or prosecute any alcohol or drug abuse patient.[facility] HospitalIn the event this information is protected by the Federal Confidentiality of Alcohol and Drug Abuse Patient Records regulations: The Federal rules restrict any use of the information to criminally investigate or prosecute any alcohol or drug abuse patient.[facility] HospitalIn the event this information is protected by the Federal Confidentiality of Alcohol and Drug Abuse Patient Records regulations: The Federal rules restrict any use of the information to criminally investigate or prosecute any alcohol or drug abuse patient.[facility] HospitalIn the event this information is protected by the Federal Confidentiality of Alcohol and Drug Abuse Patient Records regulations: The Federal rules restrict any use of the information to criminally investigate or prosecute any alcohol or drug abuse patient.[facility] HospitalIn the event this information is protected by the Federal Confidentiality of Alcohol and Drug Abuse Patient Records regulations: The Federal rules restrict any use of the information to criminally investigate or prosecute any alcohol or drug abuse patient.[facility] HospitalIn the event this information is protected by the Federal Confidentiality of Alcohol and Drug Abuse Patient Records regulations: The Federal rules restrict any use of the information to criminally investigate or prosecute any alcohol or drug abuse patient.[facility] HospitalIn the event this information is protected by the Federal Confidentiality of Alcohol and Drug Abuse Patient Records regulations: The Federal rules restrict any use of the information to criminally investigate or prosecute any alcohol or drug abuse patient.[facility] HospitalIn the event this information is protected by the Federal Confidentiality of Alcohol and Drug Abuse Patient Records regulations: The Federal rules restrict any use of the information to criminally investigate or prosecute any alcohol or drug abuse patient.[facility] HospitalIn the event this information is protected by the Federal Confidentiality of Alcohol and Drug Abuse Patient Records regulations: The Federal rules restrict any use of the information to criminally investigate or prosecute any alcohol or drug abuse patient.[facility] HospitalIn the event this information is protected by the Federal Confidentiality of Alcohol and Drug Abuse Patient Records regulations: The Federal rules restrict any use of the information to criminally investigate or prosecute any alcohol or drug abuse patient.[facility] HospitalIn the event this information is protected by the Federal Confidentiality of Alcohol and Drug Abuse Patient Records regulations: The Federal rules restrict any use of the information to criminally investigate or prosecute any alcohol or drug abuse patient.[facility] HospitalIn the event this information is protected by the Federal Confidentiality of Alcohol and Drug Abuse Patient Records regulations: The Federal rules restrict any use of the information to criminally investigate or prosecute any alcohol or drug abuse patient.[facility] HospitalIn the event this information is protected by the Federal Confidentiality of Alcohol and Drug Abuse Patient Records regulations: The Federal rules restrict any use of the information to criminally investigate or prosecute any alcohol or drug abuse patient.[facility] HospitalIn the event this information is protected by the Federal Confidentiality of Alcohol and Drug Abuse Patient Records regulations: The Federal rules restrict any use of the information to criminally investigate or prosecute any alcohol or drug abuse patient.[facility] HospitalIn the event this information is protected by the Federal Confidentiality of Alcohol and Drug Abuse Patient Records regulations: The Federal rules restrict any use of the information to criminally investigate or prosecute any alcohol or drug abuse patient.[facility] HospitalIn the event this information is protected by the Federal Confidentiality of Alcohol and Drug Abuse Patient Records regulations: The Federal rules restrict any use of the information to criminally investigate or prosecute any alcohol or drug abuse patient.[facility] HospitalIn the event this information is protected by the Federal Confidentiality of Alcohol and Drug Abuse Patient Records regulations: The Federal rules restrict any use of the information to criminally investigate or prosecute any alcohol or drug abuse patient.[facility] HospitalIn the event this information is protected by the Federal Confidentiality of Alcohol and Drug Abuse Patient Records regulations: The Federal rules restrict any use of the information to criminally investigate or prosecute any alcohol or drug abuse patient.[facility] HospitalIn the event this information is protected by the Federal Confidentiality of Alcohol and Drug Abuse Patient Records regulations: The Federal rules restrict any use of the information to criminally investigate or prosecute any alcohol or drug abuse patient.[facility] HospitalIn the event this information is protected by the Federal Confidentiality of Alcohol and Drug Abuse Patient Records regulations: The Federal rules restrict any use of the information to criminally investigate or prosecute any alcohol or drug abuse patient.[facility] HospitalIn the event this information is protected by the Federal Confidentiality of Alcohol and Drug Abuse Patient Records regulations: The Federal rules restrict any use of the information to criminally investigate or prosecute any alcohol or drug abuse patient.[facility] HospitalIn the event this information is protected by the Federal Confidentiality of Alcohol and Drug Abuse Patient Records regulations: The Federal rules restrict any use of the information to criminally investigate or prosecute any alcohol or drug abuse patient.[facility] HospitalIn the event this information is protected by the Federal Confidentiality of Alcohol and Drug Abuse Patient Records regulations: The Federal rules restrict any use of the information to criminally investigate or prosecute any alcohol or drug abuse patient.[facility] HospitalIn the event this information is protected by the Federal Confidentiality of Alcohol and Drug Abuse Patient Records regulations: The Federal rules restrict any use of the information to criminally investigate or prosecute any alcohol or drug abuse patient.[facility]In the event this information is protected by the Federal Confidentiality of Alcohol and Drug Abuse Patient Records regulations: The Federal rules restrict any use of the information to criminally investigate or prosecute any alcohol or drug abuse patient.[facility]In the event this information is protected by the Federal Confidentiality of Alcohol and Drug Abuse Patient Records regulations: The Federal rules restrict any use of the information to criminally investigate or prosecute any alcohol or drug abuse patient.[facility] HospitalIn the event this information is protected by the Federal Confidentiality of Alcohol and Drug Abuse Patient Records regulations: The Federal rules restrict any use of the information to criminally investigate or prosecute any alcohol or drug abuse patient.[facility] HospitalIn the event this information is protected by the Federal Confidentiality of Alcohol and Drug Abuse Patient Records regulations: The Federal rules restrict any use of the information to criminally investigate or prosecute any alcohol or drug abuse patient.[facility]In the event this information is protected by the Federal Confidentiality of Alcohol and Drug Abuse Patient Records regulations: The Federal rules restrict any use of the information to criminally investigate or prosecute any alcohol or drug abuse patient.[facility]In the event this information is protected by the Federal Confidentiality of Alcohol and Drug Abuse Patient Records regulations: The Federal rules restrict any use of the information to criminally investigate or prosecute any alcohol or drug abuse patient.[facility]In the event this information is protected by the Federal Confidentiality of Alcohol and Drug Abuse Patient Records regulations: The Federal rules restrict any use of the information to criminally investigate or prosecute any alcohol or drug abuse patient.[facility]In the event this information is protected by the Federal Confidentiality of Alcohol and Drug Abuse Patient Records regulations: The Federal rules restrict any use of the information to criminally investigate or prosecute any alcohol or drug abuse patient.[facility]In the event this information is protected by the Federal Confidentiality of Alcohol and Drug Abuse Patient Records regulations: The Federal rules restrict any use of the information to criminally investigate or prosecute any alcohol or drug abuse patient.[facility] HospitalIn the event this information is protected by the Federal Confidentiality of Alcohol and Drug Abuse Patient Records regulations: The Federal rules restrict any use of the information to criminally investigate or prosecute any alcohol or drug abuse patient.[facility] Reason for Visit (unrecogniz ed section and content) Reason Comments Nausea & Vomiting diarrhea x 2 days Reason Comments Results Reason Comments 4 month follow up 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 Reason Comments Recheck 4 month follow up Reason Comments Patient Question Reason Comments Follow Up Reason Onset Date Comments Transition Of Care 06/26/2022 Reason Comments Orders teletypesetter monitor Reason Comments TIA Also having headache s in posterior neck and head Reason Comments Cardiac Heart Monitor Reason Comments Outside Testing Reason Comments Faxed to [facility] Sleep Reason Comments Spirometry Specialty Diagnoses / Procedures [facility] Diagnoses SOB (shortness of breath) Procedures SPIROMETRY WITH DILATOR IF OBSTRUCTED BRNCDILAT RSPSE SPMTRY PRE&POST-BRNCDILAT Carla Ortiz MD [address] [facility] [place] [address] [facility] [place] [address] [place] [id number] Referral ID Status Reason Start Date Expiration Date V isits Requested Visits Authorized [id number] Closed Auto-Generated Referral Patient Cleared - INN Insurance Found 09/25/2022 10/25/2023 1 1 Reason Comments Consult COPD Reason Comments Results Labs Reason Comments Benign Prostatic Hypertrophy Elevated PSA Follow Up Reason Comments COPD Reason Comments Results Review of chest CTs Reason Comments Radiology CT Specialty Diagnoses / Procedures [facility] Diagnoses Lung nodules Former smoker Centrilobular emphysema (HCC) Procedures CT CHEST WO IVCON DIAGNOSTIC COMPUTED TOMOGRAPHY THORAX W/O CNTRST Carla Ulrich MD [address] [facility] [place] [address] [place] [address] Referral ID Status Reason Start Date Expiration Date V isits Requested Visits Authorized [id number] Closed Auto-Generate d Referral 10/15/2023 11/13/2024 1 1 Reason Comments Follow Up 4 month follow up Reason Comments Patient Update Reason Comments Follow Up Elevated PSA Reason Comments Prostate Biopsy Scheduling Reason Comments Constipation Specialty Diagnoses / Procedures [facility] Diagnoses Acute bronchitis, unspecified organism Chronic cough Hyperinflation of lungs SANDHU (dyspnea on exertion) Procedures LUNG DIFFUSION CAPACITY (DLCO) DIFFUSING CAPACITY Yuval Dorantes MD [address] [place] [address] [facility] [place] [facility] [place] [address] Referral ID Status Reason Start Date Expiration Date V isits Requested Visits Authorized [id number] Closed Auto-Generate d Referral 01/31/2024 03/01/2025 1 1 Specialty Diagnoses / Procedures Referred By [facility] Referred To [facility] Diagnoses Acute bronchitis, unspecified organism Chronic cough Hyperinflation of lungs SANDHU (dyspnea on exertion) Procedures LUNG VOLUMES Yuval Dorantes MD [address] [place] [address] [facility] [place] [address] [place] [id number] Referral ID Status Reason Start Date Expiration Date V isits Requested Visits Authorized [id number] Closed Auto-Generate d Referral 01/31/2024 03/01/2025 1 1 Specialty Diagnoses / Procedures Referred By [facility] Referred To Contact [facility] Diagnoses Acute bronchitis, unspecified organism Chronic cough Hyperinflation of lungs SANDHU (dyspnea on exertion) Procedures SPIROMETRY - BASELINE AND POST DILATOR BRNCDILAT RSPSE SPMTRY PRE&POST-BRNCDILAT ADMN Yuval Dorantes MD [address] [place] [address] [place] [address] Referral ID Status Reason Start Date Expiration Date V isits Requested Visits Authorized [id number] Closed Auto-Generate d Referral 01/31/2024 03/01/2025 1 1 Reason Comments Follow Up follow up- COPD and constipation- no BM since 01/24/24, c/o clammy and gittery after inhaler and completed prednisone Reason Comments lung testing results Reason Comments Orders Need to move chest C T up. New nodule on outside chest CT Reason Comments Established Patient COPD Reason Comments Orders Appointment Reason Comments Appointment Reason Comments Recheck Reason Comments Diarrhea Reason Comments Follow Up PSA Reason Comments ED Follow-up [facility] ED follow up 01/07 Specialty Diagnoses / Procedures Referred By [facility] Referred To Contact CT IMAGING Diagnoses Lung nodules Centrilobular emphysema (HCC) Procedures CT CHEST WO IVCON DIAGNOSTIC COMPUTED TOMOGRAPHY THORAX W/O Carla Molina MD [address] [place] [address] Ct Imaging [facility] Referral ID Status Reason Start Date Expiration Date V isits Requested Visits Authorized [id number] Closed Auto-Generate d Referral 07/21/2024 04/13/2025 1 1 Reason Comments Recheck 3 month follow up an d review CT scan completed on 07/21/24States is noticing a sore throat in morning after using inhaler the night before COPD Abnormal Chest X-ray Reason Comments Prostate Biopsy Specialty Diagnoses / Procedures Referred By [place] Referred To Contact [facility] Diagnoses Elevated prostate specific antigen (PSA) Procedures PROSTATE BIOPSY GUKI PROSTATE NEEDLE BIOPSY ANY APPROACH US, TRANSRECTAL URNLS DIP STICK/TABLET RGNT AUTO W/O MICROSCOPY US GUIDANCE NEEDLE PLACEMENT IMG S&I Porsha Meadows PA-C [address] [place] [address] Phone: tel: fax: [facility] & [address] [place] [id number] Referral ID Status Reason Start Date Expiration Date V isits Requested Visits Authorized [id number] Closed Auto-Generate d Referral 01/01/2024 12/31/2024 1 1 Reason Comments PSA Reason Comments New Patient Reason Comments Radiology [place] Specialty Diagnoses / Procedures Referred By [facility] Referred To Contact [facility] Diagnoses Prostate cancer (HCC) Procedures NM PET/CT PROSTATE WHOLE BODY IMAGING PET IMAGING CT ATTENUATION SKULL BASE MID-THIGH An Henley Jr., MD [address] [place] [id number] Phone: tel: fax: [facility] [address] [place] [address] Phone: tel: Referral ID Status Reason Start Date Expiration Date V isits Requested Visits Authorized [id number] Closed Auto-Generate d Referral 10/01/2024 10/31/2025 1 1 Reason Comments Consult Specialty Diagnoses / Procedures Referred By [facility] Referred To Contact Radiation Oncology Diagnoses Prostate cancer (HCC) Procedures RAD/ONC CONSULT OFFICE/OUTPATIENT NEW HIGH MDM 60 MINUTES An Henley Jr., MD [address] [place] [address] Phone: tel: fax: Referral ID Status Reason Start Date Expiration Date V isits Requested Visits Authorized [id number] Closed PCP Requested Referral 10/01/2024 10/01/2025 1 1 Reason Comments 4 month f/up Just dx prostate can cer Reason Comments Radiotherapy On-treatment Visit Care Teams (unrecognized sec tion and content) Interface Designer Relationship Specialty Start Date End Date Yuval Dorantes MD [address] [facility] [place] [address] PCP - General Internal Medicine 11/06/12 Bradley, Orwell S [address] [place] [address] Physician Cardiology 11/13/18 Interface Designer Relationship Specialty Start Date End Date Yuval Dorantes MD [address] [facility] [place] [address] PCP - General Internal Medicine 11/06/12 Bradley, Gatito S [address] [place] [address] Physician Cardiology 11/13/18 Interface Designer Relationship Specialty Start Date End Date Yuval Dorantes MD [address] [place] [address] PCP - General Internal Medicine 11/06/12 Bradley, Gatito S [address] [place] [address] Physician Cardiology 11/13/18 Interface Designer Relationship Specialty Start Date End Date Yuval Dorantes MD [address] [facility] [place] [address] PCP - General Internal Medicine 11/06/12 Bradley, Gatito S [address] [place] [address] Physician Cardiology 11/13/18 Interface Designer Relationship Specialty Start Date End Date Yuval Dorantes MD [address] [facility] [place] [address] PCP - General Internal Medicine 11/06/12 Bradley, Gatito S [address] [place] [address] Physician Cardiology 11/13/18 Interface Designer Relationship Specialty Start Date End Date Yuval Dorantes MD [address] [facility] [place] [address] PCP - General Internal Medicine 11/06/12 Bradley, Orwell S [address] [place] [address] Physician Cardiology 11/13/18 Interface Designer Relationship Specialty Start Date End Date Yuval Dorantes MD [address] [facility] [place] [address] PCP - General Internal Medicine 11/06/12 Bradley, Orwell S [address] [place] [address] Physician Cardiology 11/13/18 Interface Designer Relationship Specialty Start Date End Date Yuval Dorantes MD [address] [facility] [place] [address] PCP - General Internal Medicine 11/06/12 Bradley, Gatito S [address] [place] [address] Physician Cardiology 11/13/18 Interface Designer Relationship Specialty Start Date End Date Yuval Dorantes MD [address] [facility] [place] [address] PCP - General Internal Medicine 11/06/12 Bradley, Orwell S [address] [place] [address] Physician Cardiology 11/13/18 Interface Designer Relationship Specialty Start Date End Date Yuval Dorantes MD [address] [facility] [place] [address] PCP - General Internal Medicine 11/06/12 Bradley, Gatito S [address] [place] [address] Physician Cardiology 11/13/18 Interface Designer Relationship Specialty Start Date End Date Yuval Dorantes MD [address] [facility] [place] [address] PCP - General Internal Medicine 11/06/12 Bradley, Orwell S [address] [place] [address] Physician Cardiology 11/13/18 Interface Designer Relationship Specialty Start Date End Date Yuval Dorantes MD [address] [facility] [place] [address] PCP - General Internal Medicine 11/06/12 Bradley, Gatito S [address] [place] [address] Physician Cardiology 11/13/18 Interface Designer Relationship Specialty Start Date End Date Yuval Dorantes MD [address] [facility] [place] [address] PCP - General Internal Medicine 11/06/12 Bradley, Gatito S [address] [place] [address] Physician Cardiology 11/13/18 Interface Designer Relationship Specialty Start Date End Date Yuval Dorantes MD [address] [facility] [place] [address] PCP - General Internal Medicine 11/06/12 Bradley, Gatito S [address] [place] [address] Physician Cardiology 11/13/18 Interface Designer Relationship Specialty Start Date End Date Yuval Dorantes MD [address] [place] [address] PCP - General Internal Medicine 11/06/12 Bradley, Gatito S [address] [place] [address] Physician Cardiology 11/13/18 Team Status: Active Member Role Status Dates Dr. Yuval Dorantes MD Family Provider Active Dr. Yuval Dorantes MD Primary Care Provider Active Team Status: Active Member Role Status Dates Dr. Yuval Dorantes MD Primary Care Provider Active Dr. Dimas Miller DO Emergency Provider Active Dr. Lisha Elkins MD Admit Provider, Atte nding Provider, Other Provider Active Team Status: Active Member Role Status Dates Dr. Yuval Dorantes MD Primary Care Provider Active Dr. Jessie Cruz MD Attending Provider Activ e Team Status: Active Member Role Status Dates Dr. Yuval Dorantes MD Primary Care Provider Active Dr. Dimas Miller DO Emergency Provider Active Dr. Lisha Elkins MD Admit Provider, Other Provider Act nicole Dr. Gregory Orellana MD Attending Provider, Other Provider Active Team Status: Inactive Member Role Status Dates Dr. Yuval Dorantes MD Primary Care Provider Active Dr. Dimas Miller DO Emergency Provider Active Dr. Lisha Elkins MD Admit Provider, Other Provider Act nicole Dr. Gregory Orellana MD Attending Provider Active Team Status: Inactive Member Role Status Dates Dr. Yuval Dorantes MD Primary Care Provider Active FLORENTINO CLEARY Referring Provider Active FLORENTINO DUCKWORTH Attending Provider Active Interface Designer Relationship Specialty Start Date End Date Yuval Dorantes MD [address] [place] [address] PCP - General Internal Medicine 11/06/12 Bradley, Orwell S [address] [place] [address] Physician Cardiology 11/13/18 Team Status: Inactive Member Role Status Dates Dr. Yuval Dorantes MD Primary Care Provider, Referr ing Provider Active Shilpi FERGUSON PA Attending Provider Active Team Status: Inactive Member Role Status Dates Dr. Yuval Dorantes MD Primary Care Provider Active Shilpi FERGUSON, PA Attending Provider, Referr ing Provider Active Interface Designer Relationship Specialty Start Date End Date Yuval Dorantes MD [address] [place] [address] PCP - General Internal Medicine 11/06/12 Gatito Huerta MD [address] [address] Physician Cardiology 11/13/18 Team Status: Inactive Member Role Status Dates Dr. Yuval Dorantes MD Primary Care Provider Active Dr. Jarod Davies MD Attending Provider, Referring Provider Active Interface Designer Relationship Specialty Start Date End Date Yuval Dorantes MD [address] [place] [address] PCP - General Internal Medicine 11/06/12 Gatito Huerta MD [address] [place] [address] Physician Cardiology 11/13/18 Interface Designer Relationship Specialty Start Date End Date Yuval Dorantes MD [address] [place] [address] PCP - General Internal Medicine 11/06/12 Gatito Huerta MD [address] [place] [address] Physician Cardiology 11/13/18 Interface Designer Relationship Specialty Start Date End Date Yuval Dorantes MD [address] [place] [address] PCP - General Internal Medicine 11/06/12 Gatito Huerta MD [address] [address] Physician Cardiology 11/13/18 Interface Designer Relationship Specialty Start Date End Date Yuval Dorantes MD [address] [place] [address] PCP - General Internal Medicine 11/06/12 Gatito Huerta MD [address] [address] Physician Cardiology 11/13/18 Interface Designer Relationship Specialty Start Date End Date Yuval Dorantes MD [address] [place] [address] PCP - General Internal Medicine 11/06/12 Gatito Huerta MD [address] [address] Physician Cardiology 11/13/18 Interface Designer Relationship Specialty Start Date End Date Yuval Dorantes MD [address] [place] [address] PCP - General Internal Medicine 11/06/12 Gatito Huerta MD [address] [address] Physician Cardiology 11/13/18 Interface Designer Relationship Specialty Start Date End Date Yuval Dorantes MD [address] [place] [address] PCP - General Internal Medicine 11/06/12 Gatito Huerta MD [address] [address] Physician Cardiology 11/13/18 Interface Designer Relationship Specialty Start Date End Date Yuval Dorantes MD [address] [place] [address] PCP - General Internal Medicine 11/06/12 Gatito Huerta MD [address] [address] Physician Cardiology 11/13/18 Interface Designer Relationship Specialty Start Date End Date Yuval Dorantes MD [address] [place] [address] PCP - General Internal Medicine 11/06/12 Gatito Huerta MD [address] [address] Physician Cardiology 11/13/18 Interface Designer Relationship Specialty Start Date End Date Yuval Doarntes MD [address] [place] [address] PCP - General Internal Medicine 11/06/12 Gatito Huerta MD [address] [address] Physician Cardiology 11/13/18 Interface Designer Relationship Specialty Start Date End Date Yuval Dorantes MD [address] [place] [address] PCP - General Internal Medicine 11/06/12 Gatito Huerta MD [address] [address] Physician Cardiology 11/13/18 Interface Designer Relationship Specialty Start Date End Date Yuval Dorantes MD [address] [place] [address] PCP - General Internal Medicine 11/06/12 Gatito Huerta MD [address] [address] Physician Cardiology 11/13/18 Interface Designer Relationship Specialty Start Date End Date Yuval Dorantes MD [address] [place] [address] PCP - General Internal Medicine 11/06/12 Gatito Huerta MD [address] [facility] [address] [address] Physician Cardiology 11/13/18 Interface Designer Relationship Specialty Start Date End Date Yuval Dorantes MD [address] [place] [address] PCP - General Internal Medicine 11/06/12 Gatito Huerta MD [address] [address] Physician Cardiology 11/13/18 Interface Designer Relationship Specialty Start Date End Date Yuval Dorantes MD [address] [place], [place] [phone] PCP - General Internal Medicine 11/06/12 Gatito Huerta MD [address] [address] Physician Cardiology 11/13/18 Interface Designer Relationship Specialty Start Date End Date Yuval Dorantes MD [address] [place] [address] PCP - General Internal Medicine 11/06/12 Gatito Huerta MD [address] [address] Physician Cardiology 11/13/18 Interface Designer Relationship Specialty Start Date End Date Yuval Dorantes MD [address] [place] [address] PCP - General Internal Medicine 11/06/12 Gatito Huerta MD [address] [facility] [address] [address] Physician Cardiology 11/13/18 Interface Designer Relationship Specialty Start Date End Date Yuval Dorantes MD [address] [place] [address] PCP - General Internal Medicine 11/06/12 Gatito Huerta MD [address] [address] Physician Cardiology 11/13/18 Interface Designer Relationship Specialty Start Date End Date Yuval Dorantes MD [address] [place] [address] PCP - General Internal Medicine 11/06/12 Gatito Huerta MD [address] [address] Physician Cardiology 11/13/18 Interface Designer Relationship Specialty Start Date End Date Yuval Dorantes MD [address] [place] [address] PCP - General Internal Medicine 11/06/12 Gatito Huerta MD [address] [address] Physician Cardiology 11/13/18 Interface Designer Relationship Specialty Start Date End Date Yuval Dorantes MD [address] [place] [address] PCP - General Internal Medicine 11/06/12 Gatito Huerta MD [address] [address] Physician Cardiology 11/13/18 Interface Designer Relationship Specialty Start Date End Date Yuval Dorantes MD [address] [place] [address] PCP - General Internal Medicine 11/06/12 Gatito Huerta MD [address] [address] Physician Cardiology 11/13/18 Valerie Alvarez, 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.LINTER OPERATOR [address] [place] [address] Grants Assistant Internal Medicine 06/23/24 Minoo Casanova APRN.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 [address] [place] [address] Grants Assistant Internal Medicine 06/23/24 Interface Designer Relationship Specialty Start Date End Date Yuval Dorantes MD [address] [place] [address] PCP - General Internal Medicine 11/06/12 Gatito Huerta MD [address] [address] Physician Cardiology 11/13/18 Interface Designer Relationship Specialty Start Date End Date Yuval Dorantes MD [address] [place] [address] PCP - General Internal Medicine 11/06/12 Gatito Huerta MD [address] [address] Physician Cardiology 11/13/18 Valerie Alvarez, 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.LINTER OPERATOR [address] [place] [address] Grants Assistant Internal Medicine 06/23/24 Minoo Casanova APRN.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 [address] [place] [address] Grants Assistant Internal Medicine 06/23/24 Interface Designer Relationship Specialty Start Date End Date Yuval Dorantes MD [address] [place] [address] PCP - General Internal Medicine 11/06/12 Gatito Huerta MD [address] [address] Physician Cardiology 11/13/18 Valerie Alvarez, 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.LINTER OPERATOR [address] [place] [address] Grants Assistant Internal Medicine 06/23/24 Minoo Casanova APRN.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 [address] [place] [address] Grants Assistant Internal Medicine 06/23/24 Interface Designer Relationship Specialty Start Date End Date Yuval Dorantes MD [address] [place] [address] PCP - General Internal Medicine 11/06/12 Gatito Huerta MD [address] [address] Physician Cardiology 11/13/18 Valerie Alvarez, 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.LINTER OPERATOR [address] [place] [address] Grants Assistant Internal Medicine 06/23/24 Minoo Casanova APRN.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 [address] [place] [address] Grants Assistant Internal Medicine 06/23/24 Interface Designer Relationship Specialty Start Date End Date Yuval Dorantes MD [address] [place] [address] PCP - General Internal Medicine 11/06/12 Gatito Huerta MD [address] [address] Physician Cardiology 11/13/18 Valerie Alvarez, 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.LINTER OPERATOR [address] [place] [address] Grants Assistant Internal Medicine 06/23/24 Minoo Casanova 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.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 [address] [place] [address] [facility] Internal Medicine 06/23/24 Interface Designer Relationship Specialty Start Date End Date Yuval Dorantes MD [address] [place] [address] PCP - General Internal Medicine 11/06/12 Gatito Huerta MD [address] [address] Physician Cardiology 11/13/18 Valerie Alvarez, 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.LINTER OPERATOR [address] [place] [address] Grants Assistant Internal Medicine 06/23/24 Minoo Casanova 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.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 [address] [place] [address] [facility] Internal Medicine 06/23/24 Interface Designer Relationship Specialty Start Date End Date Yuval Dorantes MD [address] [place] [address] PCP - General Internal Medicine 11/06/12 Gatito Huerta MD [address] [place] [address] Physician Cardiology 11/13/18 Valerie Alvarez, 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.LINTER OPERATOR [address] [facility] [place] [address] Grants Assistant Internal Medicine 06/23/24 Minoo Casanova 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.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 [address] [facility] [place] [address] Grants Assistant Internal Medicine 06/23/24 Interface Designer Relationship Specialty Start Date End Date Yuval Dorantes MD [address] [facility] [address] PCP - General Internal Medicine 11/06/12 Gatito Huerta MD [address] [facility] [address] [place] [address] Physician Cardiology 11/13/18 Valerie Alvarez, 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.LINTER OPERATOR [address] [facility] [address] Grants Assistant Internal Medicine 06/23/24 Minoo Casanova 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.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 [address] [facility] [place] [address] Grants Assistant Internal Medicine 06/23/24 Interface Designer Relationship Specialty Start Date End Date Yuval Dorantes MD [address] [facility] [address] PCP - General Internal Medicine 11/06/12 Gatito Huerta MD [address] [facility] [address] [place] [address] Physician Cardiology 11/13/18 Valerie Alvarez, 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.LINTER OPERATOR [address] [place] [address] Grants Assistant Internal Medicine 06/23/24 Minoo Casanova 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.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 [address] [facility] [place] [address] Grants Assistant Internal Medicine 06/23/24 Interface Designer Relationship Specialty Start Date End Date Yvual Dorantes MD [address] [facility] [place] [address] PCP - General Internal Medicine 11/06/12 Gatito Huerta MD [address] [facility] [address] [place] [address] Physician Cardiology 11/13/18 Valerie Alvarez, 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.LINTER OPERATOR [address] [facility] [place] [address] Grants Assistant Internal Medicine 06/23/24 Minoo Casanova, 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.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 [address] [facility] [place] [address] Grants Assistant Internal Medicine 06/23/24 Interface Designer Relationship Specialty Start Date End Date Yuval Dorantes MD [address] [facility] [place] [address] PCP - General Internal Medicine 11/06/12 Gatito Huerta MD [address] [facility] [address] [place] [address] Physician Cardiology 11/13/18 Valerie Alvarez, 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.LINTER OPERATOR [address] [place], [place] [address] Grants Assistant Internal Medicine 06/23/24 Andrea Wu MD [address] [place], [place] [address] Physician Radiation Oncology 10/06/24 Interface Designer Relationship Specialty Start Date End Date Yuval Dorantes MD [address] [place], [place] [address] PCP - General Internal Medicine 11/06/12 Gatito Huerta MD [address] [address] Physician Cardiology 11/13/18 Valerie Alvarez, 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.LINTER OPERATOR [address] [place] [address] Grants Assistant Internal Medicine 06/23/24 Andrea Wu MD [address] [place] [address] Physician Radiation Oncology 10/06/24 Team Status: Active Member Role Status Dates Dr. Yuval Dorantes MD Primary Care Provider Active Team Status: Inactive Member Role Status Dates Dr. Yuval Dorantes MD Primary Care Provider Active Start: July 21, 2024 End: July 21, 2024 Dr. Harley Quintana DO Attending Provider Active Start: July 21, 2024 End: July 21, 2024 Dr. Harley Quintana DO Referring Provider Active Start: July 21, 2024 End: July 21, 2024 Dr. Harley Quintana DO Emergency Provider Active Start: July 21, 2024 End: July 21, 2024 Team Status: Inactive Member Role Status Dates Dr. Yuval Dorantes MD Primary Care Provider Active Start: September 23, 2024 End: September 23, 2024 Dr. Jarod Davies MD Attending Provider Active Start: September 23, 2024 End: September 23, 2024 Dr. Jarod Davies MD Referring Provider Active Start: September 23, 2024 End: September 23, 2024 Interface Designer Relationship Specialty Start Date End Date Yuval Dorantes MD [address] [facility] [place] [address] PCP - General Internal Medicine 11/06/12 Gatito Huerta MD [address] [place] [address] Physician Cardiology 11/13/18 Valerie Alvarez, 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.LINTER OPERATOR [address] [facility] [place] [address] Grants Assistant Internal Medicine 06/23/24 Andrea Wu MD [address] [place] [address] Physician Radiation Oncology 10/06/24 Minoo Casanova, 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.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 [address] [facility] [place] [address] Grants Assistant Internal Medicine 10/07/24 Interface Designer Relationship Specialty Start Date End Date Yuval Dorantes MD [address] [facility] [place] [address] PCP - General Internal Medicine 11/06/12 Gatito Huerta MD [address] [place] [address] Physician Cardiology 11/13/18 Valerie Alvarez, 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.LINTER OPERATOR [address] [facility] [address] Grants Assistant Internal Medicine 06/23/24 Andrea Wu MD [address] [facility] [place] [address] Physician Radiation Oncology 10/06/24 Minoo Casanova 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.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 [address] [facility] [place] [address] [facility] Internal Medicine 10/07/24 Interface Designer Relationship Specialty Start Date End Date Yuval Dorantes MD [address] [facility] [place] [address] PCP - General Internal Medicine 11/06/12 Gatito Huerta MD [address] [place] [address] Physician Cardiology 11/13/18 Valerie Alvarez, 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.LINTER OPERATOR [address] [facility] [place] [address] Grants Assistant Internal Medicine 06/23/24 Andrea Wu MD [address] [facility] [place] [address] Physician Radiation Oncology 10/06/24 Minoo Casanova 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.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 [address] [facility] [place] [address] [facility] Internal Medicine 10/07/24 Interface Designer Relationship Specialty Start Date End Date Yuval Dorantes MD [address] [place] [address] PCP - General Internal Medicine 11/06/12 Gatito Huerta MD [address] [facility] [address] [place] [address] Physician Cardiology 11/13/18 Valerie Alvarez, 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.LINTER OPERATOR [address] [place] [address] Grants Assistant Internal Medicine 06/23/24 Andrea Wu MD [address] [place] [address] Physician Radiation Oncology 10/06/24 Minoo Casanova 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.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 [address] [place] [address] Grants Assistant Internal Medicine 10/07/24 Interface Designer Relationship Specialty Start Date End Date Yuval Dorantes MD [address] [place] [address] PCP - General Internal Medicine 11/06/12 Gatito Huerta MD [address] [facility] [address] [place] [address] Physician Cardiology 11/13/18 Valerie Alvarez, 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.LINTER OPERATOR [address] [place] [address] Grants Assistant Internal Medicine 06/23/24 Andrea Wu MD [address] [place] [address] Physician Radiation Oncology 10/06/24 Minoo Casanova APRN.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 [address] [facility] [address] Grants Assistant Internal Medicine 10/07/24 Interface Designer Relationship Specialty Start Date End Date Yuval Dorantes MD [address] [facility] [place] [address] PCP - General Internal Medicine 11/06/12 Gatito Huerta MD [address] [facility] [address] [place] [address] Physician Cardiology 11/13/18 Valerie Alvarez APRN.LINTER OPERATOR [address] [facility] [place] [address] Grants Assistant Internal Medicine 06/23/24 Andrea Wu MD [address] [place] [address] Physician Radiation Oncology 10/06/24 Minoo Casanova APRN.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 [address] [facility] [address] Grants Assistant Internal Medicine 10/07/24 Interface Designer Relationship Specialty Start Date End Date Yuval Dorantes MD [address] [facility] [place] [address] PCP - General Internal Medicine 11/06/12 Gatito Huerta MD [address] [facility] [address] [place] [address] Physician Cardiology 11/13/18 Valerie Alvarez APRN.LINTER OPERATOR [address] [facility] [place] [address] Grants Assistant Internal Medicine 06/23/24 Andrea Wu MD [address] [address] Physician Radiation Oncology 10/06/24 Minoo Casanova APRN.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 [address] [facility] [place] [address] Grants Assistant Internal Medicine 10/07/24 Interface Designer Relationship Specialty Start Date End Date Yuval Dorantes MD [address] [facility] [place] [address] PCP - General Internal Medicine 11/06/12 Gatito Huerta MD [address] [facility] [place] [address] Physician Cardiology 11/13/18 Valerie Alvarez, ADRIANA.LINTER OPERATOR [address] [facility] [place] [address] Grants Assistant Internal Medicine 06/23/24 Andrea Wu MD [address] [place] [address] Physician Radiation Oncology 10/06/24 Minoo Casanova APRN.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 [address] [facility] [place] [address] Grants Assistant Internal Medicine 10/07/24 Interface Designer Relationship Specialty Start Date End Date Yuval Dorantes MD [address] [place] [address] PCP - General Internal Medicine 11/06/12 Gatito Huerta MD [address] [place] [address] Physician Cardiology 11/13/18 Valerie Alvarez, 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.LINTER OPERATOR [address] [facility] [address] Grants Assistant Internal Medicine 06/23/24 Andrea Wu MD [address] [place] [address] Physician Radiation Oncology 10/06/24 Minoo Casanova 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.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 [address] [facility] [address] Grants Assistant Internal Medicine 10/07/24 Interface Designer Relationship Specialty Start Date End Date Yuval Dorantes MD [address] [facility] [place] [address] PCP - General Internal Medicine 11/06/12 Gatito Huerta MD [address] [facility] [place] [address] Physician Cardiology 11/13/18 Valerie Alvarez, 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.LINTER OPERATOR [address] [facility] [place] [address] Grants Assistant Internal Medicine 06/23/24 Andrea Wu MD [address] [place] [address] Physician Radiation Oncology 10/06/24 Minoo Casanova, 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.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 [address] [facility] [place] [address] Grants Assistant Internal Medicine 10/07/24 Interface Designer Relationship Specialty Start Date End Date Yuval Dorantes MD [address] [place] [address] PCP - General Internal Medicine 11/06/12 Gatito Huerta MD [address] [place] [address] Physician Cardiology 11/13/18 Valerie Alvarez, 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.LINTER OPERATOR [address] [place] [address] Grants Assistant Internal Medicine 06/23/24 Andera Wu MD [address] [place] [address] Physician Radiation Oncology 10/06/24 Minoo Casaonva, 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.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 [address] [place] [address] Grants Assistant Internal Medicine 10/07/24 Interface Designer Relationship Specialty Start Date End Date Yuval Dorantes MD [address] [place] [address] PCP - General Internal Medicine 11/06/12 Gatito Huerta MD [address] [place] [address] Physician Cardiology 11/13/18 Andrea Wu MD [address] [place] [address] Physician Radiation Oncology 10/06/24 Minoo Casanova APRN.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 [address] [facility] [place] [address] Grants Assistant Internal Medicine 10/07/24 Valerie Alvarez APRN.LINTER OPERATOR [address] [facility] [place] [address] Grants Assistant Internal Medicine 12/03/24 Team Status: Active Member Role Status Dates Dr. Yuval Dorantes MD Primary Care Provider Active Start: January 05, 2025 Jose Baldwin MD Referring Provider Active Star t: January 05, 2025 Jose Baldwin MD Emergency Provider Active Star t: January 05, 2025 Dr. Sulema Schultz MD Admit Provider Active Star t: January 05, 2025 Dr. Sulema Schultz MD Attending Provider Active Start: January 05, 2025 Dr. Sulema Schultz MD Other Provider Active Star t: January 05, 2025 Interface Designer Relationship Specialty Start Date End Date Yuval Dorantes MD [address] [facility] [place] [address] PCP - General Internal Medicine 11/06/12 Gatito Huerta MD [address] [address] Physician Cardiology 11/13/18 Andrea Wu MD [address] [facility] [place] [address] Physician Radiation Oncology 10/06/24 Minoo Casanova APRN.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 [address] [facility] [place] [address] [facility] Internal Medicine 10/07/24 Valerie Alvarez APRN.[facility] [address] [place] [address] [facility] Internal [facility] 12/03/24 Goals (unrecognized section and content) Goals may be documented in a n alternate sectionGoals may be documented in an alternate sectionGoals may be documented in an alternate sectionGoals may be documented in an alternate sectionGoals may be documented in an alternate sectionGoals may be documented in an alternate section (unrecognized sect ion and content) No Status Records FoundNo Status Records FoundNo Status Records FoundNo Status Records Found INFORMATION SOURCE (unrecogn ized section and content) DATE CREATED AUTHOR 10/03/2024 [facility] DATE CREATED AUTHOR AUTHOR'S ORGANIZ ATION 10/07/2024 [facility] DATE CREATED AUTHOR AUTHOR'S ORGANIZ ATION 11/19/2024 [facility] DATE CREATED AUTHOR AUTHOR'S ORGANIZ ATION 12/11/2024 [facility] FOR RECORDS PERTAINING TO PATIENTS WHO ARE OR HAVE BEEN ENROLLED IN A CHEMICAL DEPENDENCY/SUBSTANCEABUSE PROGRAM, SOME INFORMATION MAY BE OMITTED. This clinical summary was aggregated from multiple sources. Caution should be exercised in using it in the provision of clinical care. This summary normalizes information from multiple sources, and as a consequence, information in this document may materially change the coding, format and clinical context of patient data. In addition, data may be omitted in some cases. CLINICAL DECISIONS SHOULD BE BASED ON THE PRIMARY CLINICAL RECORDS. [employer] provides no warranty or guarantee of the accuracy or completeness of information in this document.
[2025-01-06] VITALS (7 sets, daily range): BP systolic 114–152; BP diastolic 81–92; PULSE 61–82; RESP 16–18; TEMP 35.9–37.3; O2SAT 94–97; BMI 25.4
[2025-01-06 02:08] LABS: Bacteria 0 SEEN /hpf (None Seen); Mucous, Urine 0 SEEN /hpf (<or=2+); Squamous Epithelial Cells - UA 0 SEEN /hpf (0-5)
[2025-01-06 02:10] LABS: Color, Urine Yellow (Yellow); Glucose, Dipstick Normal (Normal); Ketone-Dipstick Negative (Negative); Leukocyte Esterase-Dipstick Negative /ul (Negative); Nitrite-Dipstick Negative (Negative); Occult Blood-Urine 25 /ul (Negative); Protein-Dipstick Negative (Negative); Urine Bilirubin Dipstick Negative (Negative); Urine Clarity Clear (Clear); Urine Urobilinogen Normal (Normal)
[2025-01-06 03:58] LABS: Red Blood Cells-Urine 0-5 SEEN /hpf (0-5); White Blood Cells 0-5 SEEN /hpf (0-5)
[2025-01-06] MEDS: 0.9% Saline Lock 10 ML Syringe IV (05:48)
[2025-01-06] MEDS: Levothyroxine 50 MCG Tablet PO (05:48)
[2025-01-06 07:02] LABS: Absolute Lymphocyte Count 0.71 X10^3/uL (0.83-4.51); Absolute Neutrophil Count 3.8 X10^3/uL (2.0-7.7); Basophil# 0.01 X10^3/uL; Basophil% 0.2 % (0-1); Eosinophil# 0.13 X10^3/uL; Eosinophils% 2.5 % (0-5); Hematocrit 39.1 % (40-54); Hemoglobin 13.3 g/dL (13.0-16.5); Lymphocyte # 0.71 X10^3/ul (0.83-4.51); Lymphocyte % 13.8 % (19-41); Mean Corpuscular Hgb 30.6 pg (27.0-32.0); Mean Corpuscular Volume 89.9 fL (80-94); Mean Platelet Vol. 10.1 fl (6.2-12.0); Monocyte# 0.49 X10^3/uL; Monocyte% 9.5 % (0-10); NRBC Flagged by Analyzer 0 % (0-5); Neutrophil # 3.79 X10^3/uL (2.7-7.7); Neutrophil % 73.8 % (47-70); Platelet Count 157 K/mm3 (150-450); RBC Distribution Width CV 13.4 % (11.6-14.6); RBC Distribution Width SD 44.4 fl (35.1-43.9); Red Blood Count 4.35 M/mm3 (4.6-6.2); White Blood Count 5.1 K/mm3 (4.4-11.0)
[2025-01-06 07:39] LABS: Anion Gap 11 (5-15); BUN 9 mg/dL (4-19); BUN/Creat Ratio 8.8 RATIO (10-20); Carbon Dioxide 25.6 mmol/L (21.0-32.0); Chloride 105 mmol/L (98-108); Cholesterol 135 mg/dL (<=200); Creatinine, Serum 1.01 mg/dL (0.70-1.20); EST Glomerular Filtration Rate 76 (>60); Estimated Creatinine Clearance 56.36 ml/min (50-250); Glucose 100 mg/dL (70-99); High Density Lipoprotein 37 mg/dL; Low Density Lipoprotein Calc. 81 mg/dL; Potassium 3.4 mmol/L (3.3-5.1); Sodium Level 141 mmol/L (133-145); Triglycerides 85 mg/dL; Very Low Density Lipoprotein 17 mg/dL (5-40); cholesterol:hdl ratio screen 3.64
[2025-01-06] MEDS: Aspirin 81 MG TAB.CHEW PO (08:17)
[2025-01-06] MEDS: Famotidine 20 MG Tablet 40 MG PO (08:17)
[2025-01-06 08:18] LABS: Hemoglobin A1c 5.5 % (<=5.6)
--- NOTE | 2025-01-06 09:50 | PCM.PN.HOSP ---
Reason for Visit Reason for Visit: Diagnoses Disorientation, unspecified (01/05/25) Aphasia (01/05/25) Subjective Subjective Feeling well. Back to baseline. Objective Data Objective Data Vital Signs: Vital Signs Temp Pulse Resp BP Pulse Ox O2 Del Method O2 Flow Rate 37.3 C 61 18 135/81 H 95 Room Air 2 01/06/25 08:00 01/06/25 08:00 01/06/25 08:00 01/06/25 08:00 01/06/25 08:55 01/06/25 08:05 01/05/25 18:00 Oxygen Flow Rate (L/min) 2 Oxygen Delivery Method Room Air Weight: 73.9 kg Body Mass Index (BMI) 25.4 Intake & Output: Intake and Output for Last 24 Hours 01/04/25 01/05/25 01/06/25 23:59 23:59 23:59 Output Total 1050 / 1050 Balance -1050 / -1050 Lab / Micro Data 01/06/25 06:27 01/06/25 06:27 Labs: Laboratory Results - last 24 hr 01/05/25 16:30: WBC 5.9, RBC 3.81 L, Hgb 11.8 L, Hct 36.2 L, MCV 95.0 H, MCH 31.0, MCHC 32.6, RDW Std Deviation 46.9 H, RDW Coeff of Jacky 13.4, Plt Count 137 L, MPV 10.0, Immature Gran % (Auto) 0.300, Neut % (Auto) 85.1 H, Lymph % (Auto) 7.3 L, [place] % (Auto) 5.8, Eos % (Auto) 1.2, Baso % (Auto) 0.3, Absolute Neuts (auto) 5.0, Absolute Lymphs (auto) 0.43 L, Nucleated RBC % 0, PT 14.9, INR 1.1, APTT 27.0, Sodium 137, Potassium 3.4, Chloride 103, Carbon Dioxide 22.5, Anion Gap 12, BUN 14, Creatinine 1.11, Estim Creat Clear Calc 55.08, Est GFR (MDRD) Non-Af 68, BUN/Creatinine Ratio 13.0, Glucose 112 H, Calcium 8.4, Troponin T High Sens 15 01/05/25 20:31: Troponin T Hi Sens 2 Hr 14 01/05/25 22:26: Troponin T Hi Sens 4Hr 16 01/06/25 00:00: Urine Color Yellow, Urine Clarity Clear, Urine pH 7.0, Ur Specific [place] 1.010, Urine Protein Negative, Urine Glucose (UA) Normal, Urine Ketones Negative, Urine Occult Blood 25 H, Urine Nitrite Negative, Urine Bilirubin Negative, Urine Urobilinogen Normal, Ur Leukocyte Esterase Negative, Urine RBC 0-5 SEEN, Urine WBC 0-5 SEEN, Ur Squamous Epith Cells 0 SEEN, Urine Bacteria 0 SEEN, Urine Mucus 0 SEEN 01/06/25 06:27: WBC 5.1, RBC 4.35 L, Hgb 13.3, Hct 39.1 L, MCV 89.9 D, MCH 30.6, MCHC 34.0, RDW Std Deviation 44.4 H, RDW Coeff of Jacky 13.4, Plt Count 157, MPV 10.1, Immature Gran % (Auto) 0.200, Neut % (Auto) 73.8 H, Lymph % (Auto) 13.8 L, [place] % (Auto) 9.5, Eos % (Auto) 2.5, Baso % (Auto) 0.2, Absolute Neuts (auto) 3.8, Absolute Lymphs (auto) 0.71 L, Nucleated RBC % 0, Sodium 141, Potassium 3.4, Chloride 105, Carbon Dioxide 25.6, Anion Gap 11, BUN 9, Creatinine 1.01, Estim Creat Clear Calc 56.36, Est GFR (MDRD) Non-Af 76, BUN/Creatinine Ratio 8.8 L, Glucose 100 H, Hemoglobin A1c 5.5, Calcium 9.0, Triglycerides 85, Cholesterol 135, LDL Cholesterol, Calc 81, VLDL Cholesterol 17, HDL Cholesterol 37 L, Cholesterol/HDL Ratio 3.64, TSH 3.860 Radiography Diagnostic Testing: Radiology Impression Brain CT 01/05/25 16:22 IMPRESSION: No evidence of an acute intracranial abnormality. Consider MRI if there is persistent concern for acute ischemia. The critical information above was relayed directly by me by telephone to Jose Baldwin on 01/05/2025 at 4:34 pm with readback verification. Reading Location: [id number] Head/Neck CTA 01/05/25 16:24 IMPRESSION: 1. No new large vessel occlusion or hemodynamically significant narrowing. 2. 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 Reading Location: [facility] Brain MRI 01/05/25 18:13 IMPRESSION: No acute intracranial abnormality. Reading Location: [facility] Physical Exam Const alert and no apparent distress HEENT head/scalp atraumatic and moist oral mucous membranes Resp normal respiratory effort and no retractions Extremity normal to inspection and no clubbing, cyanosis or edema Neuro oriented x3, CN's II-XII intact bilaterally, moves all extremities, no focal motor deficits and no sensory deficits noted Sensorium / Orientation: awake, alert, oriented to person, oriented to place and oriented to time Coordination / Balance: [id number] test normal and [id number] test normal Speech: speech normal Motor Exam: strength 5/5 throughout Assessment & Plan Assessment/Plan (1) Brain TIA: PLAN: Presents with confusion and expressive aphasia. Previously normal prior to event. MRI brain negative. DW Dr. Valdez. Echo w EF 60% ASA and atorvastatin. Neurology recommending loading clopidogrel x1, then continue for 21 days. 30-day event monitor. PLAN: Plan Hypothyroidism: levothyroxine BPH: tamsulosin PAD: known carotid stenosis. Follow up with Dr. Durham for follow up. Left < 50% on CTA (was 50-69% on US on 08/07/2023). I discussed with the patient as her [id number] was present at bedside. He feels that the patient is back to his baseline. NIHSS NIHSS Nursing Documentation NIHSS Nursing Documentation: NIHSS: Ischemic Stroke/TIA Start: 01/05/25 19:40 Text: For PCU Patients: NIH and Neuro Check every 4 Status: Active hours, PRN and with change in RN caregiver. Freq: [id number] Protocol: Activity Type Activity Date Activity User E-sign Co-sign Detail Recorded Client Recorded Date Recorded By Document 01/06/25 08:00 [id number] 01/06/25 08:29 01/06/25 08:00 NIH Stroke Scale [NIHSS] A score of 0 is normal or asymptomatic . Total possible score is 42. Inpatient: RN or Physician to activate a stroke alert for onset of new stroke symptoms or with NIHSS increase >/= 3 points. Following change in neurological status, NIHSS will be performed per physician order or more frequently PRN. -1a. Level of Consciousness 0 - Alert; keenly responsive -1b. LOC Questions 0 - Answers BOTH questions correctly -1c. LOC Commands 0 - Performs BOTH tasks correctly -2. Best Gaze 0 - Normal -3. Visual 0 - No visual loss -4. Facial Palsy 0 - Normal symmetrical movements -5a. Left Arm 0 - No drift; arm holds 90 ( or 45) degrees for full 10 seconds -5b. Right Arm 0 - No drift; arm holds 90 ( or 45) degrees for full 10 seconds -6a. Left Leg 0 - No drift; leg holds 30- degree position for full 5 seconds -6b. Right Leg 0 - No drift; leg holds 30- degree position for full 5 seconds -7. Limb Ataxia 0 - Absent -8. Sensory 0 - Normal; no sensory loss -9. Best Language 0 - No aphasia; normal -10. Dysarthria 0 - Normal -11. Extinction and Inattention 0 - No abnormality -Total 0 Query Text:A score of 0 is normal or asymptomatic. Total possible score is 42 . ED: Notify Physician for NIHSS increase by > / = 3 points. Inpatient: RN or Physician to activate a stroke alert for NIHSS increase of > / = 3 points. Coma Scale [Assess] -Eye Opening Spontaneous -Motor Obeys Commands -Verbal Oriented [Total] -Coma Scale Total 15
--- NOTE | 2025-01-06 11:58 | NEURO.CONS ---
Assessment and Plan: Neuro Assessment/Plan SHASHANK BOB is a 80 M with a past medical history of CVA, chronic carotid artery occlusion, coronary artery disease with stenting, prostate cancer, being evaluated by Teleneurology for aphasia/dysarthria that lasted 1 hr, likely TIA. Patient has known SAÚL occlusion but with robus cross-filling through acomm from the LICA. Prior LICA has been found to be stenotic to 50-70% however on viewing of the CTA, this appears to have more flow than that so would re-evaluate the carotid doppler and assess if there has been improvement. Etiology of TIA unclear, cryptogenic - unclear if related to his recent prostate cancer and is hypercoagulable (although he is presumably cancer free), from hypoperfusion and flow changes, or from another etiology such as occult afib. Diagnosis: TIA Plan: - Anti-platelet medication: Plavix 300mg once and then [id number] + Aspirin 81 mg daily for 21 days, then ASA 81mg daily - carotid doppler - 30 day holter monitor on discharge. - Occupational/ Physical therapy consults - DVT prophylaxis with SCDs and heparin SQ - Vascular risk factor modification. The following are the recommended guidelines: LDL Goal < 70 (inc atorvastatin to 80mg) Smoking Cessation Diabetes Management intermediate designer blood pressure control should achieve <130/80 mmHg. BP management should aim to achieve penitentiary contorl in a reasonable amount of time, taking into consideration the individual patient's requirements and characteristics. Weight Management: Goal for BMI is 18.5 -24.9 kg/m2 Alcohol: No more than 2 drinks/day for men or 1 drink/day for non- women - Promote lifestyle modification: weight control, physical activity, moderation of alcohol intake, moderate sodium intake. I personally attended this patient and spent a total time of 45minutes evaluating this patient including clinical assessment, review of chart, medical history imaging, and determining appropriate treatment and workup. HPI Consult Data Date of Consult: 01/06/25 HPI Narrative HPI Narrative: SHASHANK BOB, is a 80-year-old male history of CVA, chronic carotid artery occlusion, coronary artery disease with stenting, prostate cancer status post radiation finished 12/04/2024, hypertension, BPH, insomnia, hypothyroidism [facility] as a stroke alert due to difficulty with speech and confusion. Relatives report his last known well was 1 PM so stroke neurologist consulted. Per EMS upon arrival patient was confused with expressive aphasia and was stuttering his words and speech. In the ED patient temperature 97.9, heart rate of 90 with blood pressure 136/78, respiratory rate 18 and pulse ox 94% on room air. BMP without any overtly concerning findings, troponin of 15, CBC with a hemoglobin of 11.8 with baseline seem to be in the 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 Again these were unchanged from previous. Stroke neurology recommended admission for stroke workup. Hospitalist contacted for admission. Patient evaluated at bedside with family present, reportedly patient was in his normal health, at baseline he is very active and works in his yard and goes out to get food usually twice a day, but when his daughter called him earlier he was confused and could not get his words out so she called EMS. Patient now back to baseline and awake and alert and answering questions appropriately and daughter at bedside reports he is back to baseline. Patient reports he did not sleep well last night and forgot to take his medicines so he feels little tired and like both of his eyes are little bit very, denies any numbness or tingling or focal weakness. Head a little bit of diarrhea earlier today but mentions something about one of his medications potentially causing that and his outpatient doctor saying he could hold off on that medication. Patient does urinate frequently since his radiation but this is unchanged. No nausea or vomiting no abdominal pain. Patient denies headache. Neurologic History Symptoms lasted about an hour and now completely back to normal. This is second time he had something like this happen. 2 yrs ago had a TIA. Patient was at home and doing errands and started not being able to talk. He was aware of the event the whole time. The event happened around 10am - but only happened one time. No one was around patient when it happened - pt lives alone. No weakness, or numbness more on one side than another. No stumbling around, no clumsiness. Patient noted that he was stuttering. Patient was talking to son when symptoms happened and had some slurred speech. Has prostate cancer - not on chemo, just radiation. Still on ASA and statin - no side effects. No changes in medication in the last month. Neurologic Exam -? General: Laying comfortably in bed; in no acute distress. -? HENT: Normal oropharynx and mucosa. Normal external appearance of ears and nose. Exophthalmos. -? Neck: Supple, no pain or tenderness -? CV:? No peripheral edema. -? Pulmonary:? Normal respiratory effort. -? Ext: No cyanosis, edema, or deformity -? Skin: No rash. Normal palpation of skin.? -? Musculoskeletal: full range of motion; no joint tenderness. Normal digits and nails by inspection. No clubbing. -? NEURO: -? Mental Status: The patient was alert and oriented to time, place, and person. Normal recent/remote memory, concentration, and general fund of knowledge. -? Language: speech is slightly stuttering and tremor present.? Naming, repetition, fluency, and comprehension intact. Twitching in L eye that is his baseline -? Cranial Nerves: PERRL 2mm/brisk. EOMI, visual briseno full, no facial asymmetry, facial sensation intact, hearing intact, tongue midline, no evidence of atrophy or fibrillations. -? Motor: normal bulk, tone, and strength throughout. No pronator drift or satelliting. Upper and lower extremities equal bilaterally. -? Detailed strength exam as performed by the nurse/CARYN and witnessed by the physician: R L SA 5 5 EE 5 5 EF 5 5 WE WF Disc Sander HF 5 5 KE KF 5 5 DF 5 5 PF -? slight tremor present -? Sensation- Intact to light touch bilaterally -? Coordination: No dysmetria on [id number], finger follow finger or [id number]. -? Gait- deferred [facility] Medical History Cancer of prostate Coronary artery disease Former smoker Asthma COPD (chronic obstructive pulmonary disease) Hypertension Stroke/cerebrovascular accident TIA (transient ischemic attack) Thoracic aortic aneurysm without rupture (~10/13/15) Claudication of both lower extremities Fatigue Nonruptured zhagn aneurysm Snoring Hearing loss in left ear Disorder of bone and cartilage Anxiety Cerebellar atrophy Myocardial infarction, old History of hepatitis C Psychophysiological insomnia Depression Carotid artery occlusion (~06/2011) Atherosclerosis of coronary artery of [place] heart without angina pectoris Vertebral artery aneurysm (~06/2011) Alopecia Essential hypertension Hypothyroidism Vertigo Hyperlipidemia Home Medications ?Medication ?Instructions ?Recorded ?Last Taken ?Type losartan 100 mg tablet 100 mg PO DAILY Blood pressure 10/14/15 01/05/25 History amlodipine 10 mg tablet 10 mg PO DAILY heart 12/04/18 01/05/25 History atorvastatin 40 mg tablet 40 mg PO QHS cholesterol 12/04/18 01/03/25 History famotidine 40 mg tablet 40 mg PO BID allergies 12/04/18 01/05/25 History levothyroxine 50 mcg tablet 50 mcg PO DAILY thyroid 12/04/18 01/03/25 History nitroglycerin 0.4 mg sublingual 0.4 mg sublingual Q5-15M PRN Chest 12/04/18 Unknown History tablet Pain trazodone 100 mg tablet 200 mg PO QHS for sleep 12/30/19 01/03/25 History clonazepam 1 mg tablet 1 mg PO BID PRN Insomnia 07/04/21 01/03/25 History aspirin 81 mg tablet,delayed 81 mg PO DAILY 07/11/22 01/03/25 History release (Adult Aspirin Regimen) tamsulosin 0.4 mg capsule (Flomax) 0.4 mg PO DAILY 01/05/25 01/03/25 History clopidogrel 75 mg tablet 75 mg PO DAILY #21 tabs 01/06/25 Unknown Rx Allergy/AdvReac Type Severity Reaction Status Date / Time No Known Allergies Allergy Verified 01/05/25 20:16 Family History Father CHF (congestive heart failure) Mother Cancer stomach Surgical History History of coronary artery stent placement Presence of stent in coronary artery History of hemorrhoidectomy Benign neoplasm of large bowel Social History Smoking Status: Former smoker how long ago did patient quit smokin years ago alcohol intake: never substance use type: does not use caffeine: Yes Type: coffee Number of servings: 5 Vital Signs Vital Signs Vital Signs: 01/05/25 16:16 01/05/25 16:21 01/05/25 16:22 Temperature 97.9 F 99.3 F H Temperature Source Temporal Oral Pulse Rate 90 90 75 Respiratory Rate 18 16 16 Respiratory Effort Respiratory Depth Respiratory Pattern Blood Pressure 136/78 H 136/78 H 135/86 H Blood Pressure Mean 97 97 102 Blood Pressure Source Blood Pressure Position Blood Pressure Location Pulse Ox 94 94 91 Oxygen Delivery Method Room Air Room Air Oxygen Flow Rate (L/min) 01/05/25 16:35 01/05/25 16:39 01/05/25 16:52 Temperature Temperature Source Pulse Rate 73 Respiratory Rate 16 Respiratory Effort Respiratory Depth Respiratory Pattern Blood Pressure 129/82 H Blood Pressure Mean 97 Blood Pressure Source Blood Pressure Position Blood Pressure Location Pulse Ox 95 97 95 Oxygen Delivery Method Room Air Nasal Cannula Nasal Cannula Oxygen Flow Rate (L/min) 2 2 01/05/25 17:22 01/05/25 17:30 01/05/25 17:58 Temperature 99.3 F H Temperature Source Pulse Rate 72 78 80 Respiratory Rate 17 15 18 Respiratory Effort Respiratory Depth Respiratory Pattern Blood Pressure 135/88 H 141/93 H 138/79 H Blood Pressure Mean 103 109 98 Blood Pressure Source Blood Pressure Position Blood Pressure Location Pulse Ox 95 97 95 Oxygen Delivery Method Room Air Room Air Oxygen Flow Rate (L/min) 01/05/25 18:00 01/05/25 18:30 01/05/25 19:50 Temperature 98.4 F Temperature Source Oral Pulse Rate 83 79 81 Respiratory Rate 17 14 18 Respiratory Effort Respiratory Depth Respiratory Pattern Blood Pressure 138/79 H 116/104 H 134/83 H Blood Pressure Mean 98 108 100 Blood Pressure Source Monitor Blood Pressure Position Semi-Fowlers Blood Pressure Location Right Arm Pulse Ox 95 96 94 Oxygen Delivery Method Nasal Cannula Room Air Room Air Oxygen Flow Rate (L/min) 2 01/05/25 19:57 01/05/25 20:00 01/05/25 23:45 Temperature 98.2 F Temperature Source Oral Pulse Rate 76 Respiratory Rate 16 Respiratory Effort Normal Non-Labored Respiratory Depth Normal Respiratory Pattern Normal Blood Pressure 116/76 Blood Pressure Mean 89 Blood Pressure Source Monitor Blood Pressure Position Semi-Fowlers Blood Pressure Location Right Arm Pulse Ox 93 95 Oxygen Delivery Method Room Air Room Air Room Air Oxygen Flow Rate (L/min) 01/06/25 04:00 01/06/25 04:00 01/06/25 08:00 Temperature 98.2 F 99.1 F Temperature Source Oral Oral Pulse Rate 69 61 Respiratory Rate 16 18 Respiratory Effort Normal Non-Labored Respiratory Depth Normal Respiratory Pattern Normal Blood Pressure 114/83 H 135/81 H Blood Pressure Mean 93 99 Blood Pressure Source Monitor Monitor Blood Pressure Position Semi-Fowlers Semi-Fowlers Blood Pressure Location Right Arm Right Arm Pulse Ox 94 95 Oxygen Delivery Method Room Air Room Air Room Air Oxygen Flow Rate (L/min) 01/06/25 08:05 01/06/25 08:55 01/06/25 11:02 Temperature Temperature Source Pulse Rate Respiratory Rate Respiratory Effort Normal Non-Labored Respiratory Depth Normal Respiratory Pattern Normal Blood Pressure Blood Pressure Mean Blood Pressure Source Blood Pressure Position Blood Pressure Location Pulse Ox 96 95 94 Oxygen Delivery Method Room Air Room Air Oxygen Flow Rate (L/min) Weight Weight: 73.9 kg Body Mass Index (BMI) 25.4 EEG Results Procedure Details EEG Procedure Details: SHASHANK BOB is a 80 year old M with a past medical history of , who presents for evaluation of Electroencephalogram on DATE at TIME Lab / Micro Data 01/06/25 06:27 01/06/25 06:27 Labs: Laboratory Results - last 24 hr 01/05/25 16:30: WBC 5.9, RBC 3.81 L, Hgb 11.8 L, Hct 36.2 L, MCV 95.0 H, MCH 31.0, MCHC 32.6, RDW Std Deviation 46.9 H, RDW Coeff of Jacky 13.4, Plt Count 137 L, MPV 10.0, Immature Gran % (Auto) 0.300, Neut % (Auto) 85.1 H, Lymph % (Auto) 7.3 L, Lamb % (Auto) 5.8, Eos % (Auto) 1.2, Baso % (Auto) 0.3, Absolute Neuts (auto) 5.0, Absolute Lymphs (auto) 0.43 L, Nucleated RBC % 0, PT 14.9, INR 1.1, APTT 27.0, Sodium 137, Potassium 3.4, Chloride 103, Carbon Dioxide 22.5, Anion Gap 12, BUN 14, Creatinine 1.11, Estim Creat Clear Calc 55.08, Est GFR (MDRD) Non-Af 68, BUN/Creatinine Ratio 13.0, Glucose 112 H, Calcium 8.4, Troponin T High Sens 15 01/05/25 20:31: Troponin T Hi Sens 2 Hr 14 01/05/25 22:26: Troponin T Hi Sens 4Hr 16 01/06/25 00:00: Urine Color Yellow, Urine Clarity Clear, Urine pH 7.0, Ur Specific [place] 1.010, Urine Protein Negative, Urine Glucose (UA) Normal, Urine Ketones Negative, Urine Occult Blood 25 H, Urine Nitrite Negative, Urine Bilirubin Negative, Urine Urobilinogen Normal, Ur Leukocyte Esterase Negative, Urine RBC 0-5 SEEN, Urine WBC 0-5 SEEN, Ur Squamous Epith Cells 0 SEEN, Urine Bacteria 0 SEEN, Urine Mucus 0 SEEN 01/06/25 06:27: WBC 5.1, RBC 4.35 L, Hgb 13.3, Hct 39.1 L, MCV 89.9 D, MCH 30.6, MCHC 34.0, RDW Std Deviation 44.4 H, RDW Coeff of Jacky 13.4, Plt Count 157, MPV 10.1, Immature Gran % (Auto) 0.200, Neut % (Auto) 73.8 H, Lymph % (Auto) 13.8 L, Lamb % (Auto) 9.5, Eos % (Auto) 2.5, Baso % (Auto) 0.2, Absolute Neuts (auto) 3.8, Absolute Lymphs (auto) 0.71 L, Nucleated RBC % 0, Sodium 141, Potassium 3.4, Chloride 105, Carbon Dioxide 25.6, Anion Gap 11, BUN 9, Creatinine 1.01, Estim Creat Clear Calc 56.36, Est GFR (MDRD) Non-Af 76, BUN/Creatinine Ratio 8.8 L, Glucose 100 H, Hemoglobin A1c 5.5, Calcium 9.0, Triglycerides 85, Cholesterol 135, LDL Cholesterol, Calc 81, VLDL Cholesterol 17, HDL Cholesterol 37 L, Cholesterol/HDL Ratio 3.64, TSH 3.860 Imaging Radiology Impression Brain CT 01/05/25 16:22 IMPRESSION: No evidence of an acute intracranial abnormality. Consider MRI if there is persistent concern for acute ischemia. The critical information above was relayed directly by me by telephone to Jose Baldwin on 01/05/2025 at 4:34 pm with readback verification. Reading Location: [facility] Head/Neck CTA 01/05/25 16:24 IMPRESSION: 1. No new large vessel occlusion or hemodynamically significant narrowing. 2. 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 Reading Location: [facility] Brain MRI 01/05/25 18:13 IMPRESSION: No acute intracranial abnormality. Reading Location: [facility] Active Medications Active Medications Active Medications: Current Medications Generic Name Dose Route Start Last Admin Trade Name Freq PRN Reason Stop Dose Admin Acetaminophen 650 mg 01/05/25 19:40 01/05/25 20:48 Acetaminophen 325 Mg Tablet PO 650 mg Q6H PRN PRN Administration Pain 1-10 Or Fever >100.7 Albuterol Sulfate 2.5 mg 01/05/25 19:40 Albuterol 2.5 Mg/3 Ml Vial.Neb. INHALATION Q2H PRN PRN SOB &/OR WHEEZING Aspirin 81 mg 01/06/25 08:00 01/06/25 08:17 Aspirin 81 Mg Tab.Chew PO 81 mg BREAKFAST JALEEL Administration Atorvastatin Calcium 40 mg 01/05/25 22:00 01/05/25 20:48 Atorvastatin Calcium 40 Mg Tablet PO 40 mg QHS JALEEL Administration Clonazepam 0.5 mg 01/05/25 19:40 Clonazepam 0.5 Mg Tablet PO BID PRN Insomnia Famotidine 40 mg 01/05/25 22:00 01/06/25 08:17 Famotidine 20 Mg Tablet PO 40 mg BID JALEEL Administration Hydralazine HCl 5 mg 01/05/25 19:40 Hydralazine 20 Mg/Ml Vial IV 01/06/25 19:40 Q30M PRN maintain BP parameters with HR <60 Sodium Chloride 250 mls @ 15 mls/hr 01/05/25 19:48 IV .[id number] PRN Saline Flush Sodium Chloride 250 mls @ 15 mls/hr 01/05/25 19:48 IV .[id number] PRN Additional IVPB Infusion Labetalol HCl 20 mg 01/05/25 16:22 Labetalol 20 Mg/4 Ml Vial IV 01/06/25 16:22 X1 PRN BLOOD PRESSURE Labetalol HCl 10 - 20 mg 01/05/25 19:40 Labetalol 20 Mg/4 Ml Vial IV 01/06/25 19:40 Q10M PRN PRN maintain BP parameters with HR >/=60 Levothyroxine Sodium 50 mcg 01/06/25 06:00 01/06/25 05:48 Levothyroxine 50 Mcg Tablet PO 50 mcg DAILY@0600 [facility] Administration Melatonin 10 mg 01/05/25 19:40 Melatonin 3 Mg Tablet PO QHS PRN PRN INSOMNIA Nutritional Formula (Lactose Free) 120 ml 01/06/25 10:00 01/06/25 08:17 Ensure Plus High Protein 120 Ml Liquid PO Not Given 4X/DAY [facility] Ondansetron HCl 4 mg 01/05/25 19:40 Ondansetron 4 Mg/2 Ml Vial IV Q8H PRN PRN NAUSEA/VOMITING Senna/Docusate Sodium 2 tablet 01/05/25 19:40 Senna/Docusate Sodium 1 Tablet PO BID PRN PRN Constipation Sodium Chloride 10 - 40 ml 01/05/25 19:48 01/06/25 05:48 0.9% Saline Lock 10 Ml Syringe IV 10 ml UD PRN Administration SALINE FLUSH Tamsulosin HCl 0.4 mg 01/06/25 10:00 Tamsulosin Hcl 0.4 Mg Capsule PO DAILY [facility] Trazodone HCl 100 mg 01/05/25 22:00 01/05/25 20:48 Trazodone 100 Mg Tablet PO 100 mg QHS JALEEL Administration NIHSS NIHSS Nursing Documentation NIHSS Nursing Documentation: NIHSS: Ischemic Stroke/TIA Start: 01/05/25 19:40 Text: For PCU Patients: NIH and Neuro Check every 4 Status: Active hours, PRN and with change in RN caregiver. Freq: [id number] Protocol: Activity Type Activity Date Activity User E-sign Co-sign Detail Recorded Client Recorded Date Recorded By Document 01/06/25 08:00 [id number] 01/06/25 08:29 HS 01/06/25 08:00 NIH Stroke Scale [NIHSS] A score of 0 is normal or asymptomatic . Total possible score is 42. Inpatient: RN or Physician to activate a stroke alert for onset of new stroke symptoms or with NIHSS increase >/= 3 points. Following change in neurological status, NIHSS will be performed per physician order or more frequently PRN. -1a. Level of Consciousness 0 - Alert; keenly responsive -1b. LOC Questions 0 - Answers BOTH questions correctly -1c. LOC Commands 0 - Performs BOTH tasks correctly -2. Best Gaze 0 - Normal -3. Visual 0 - No visual loss -4. Facial Palsy 0 - Normal symmetrical movements -5a. Left Arm 0 - No drift; arm holds 90 ( or 45) degrees for full 10 seconds -5b. Right Arm 0 - No drift; arm holds 90 ( or 45) degrees for full 10 seconds -6a. Left Leg 0 - No drift; leg holds 30- degree position for full 5 seconds -6b. Right Leg 0 - No drift; leg holds 30- degree position for full 5 seconds -7. Limb Ataxia 0 - Absent -8. Sensory 0 - Normal; no sensory loss -9. Best Language 0 - No aphasia; normal -10. Dysarthria 0 - Normal -11. Extinction and Inattention 0 - No abnormality -Total 0 Query Text:A score of 0 is normal or asymptomatic. Total possible score is 42 . ED: Notify Physician for NIHSS increase by > / = 3 points. Inpatient: RN or Physician to activate a stroke alert for NIHSS increase of > / = 3 points. Coma Scale [Assess] -Eye Opening Spontaneous -Motor Obeys Commands -Verbal Oriented [Total] -Coma Scale Total 15
--- NOTE | 2025-01-06 14:26 | PCM.DC.SUM ---
Providers Date of Admission: 01/05/25 Primary Care Physician: Dr. Heike Payne MD Consultations 01/05/25 19:40 Consult: Tele-Neurology Routine Consulting Provider: [facility] Reason for Consult: Acute Ischemic Stroke/TIA EMERGENT Consult: No MD Notified: Yes Date Notified: 01/05/25 Time Notified: 19:41 Method of Notification: Answering Service Nursing Unit Staff Notify [facility] of Tele-Neurology Consult: Yes Reason For Visit: TIA/CVA RULE OUT Diagnosis Discharge Diagnosis (1) Brain TIA: Status: Acute Code(s): G45.9 - Transient cerebral ischemic attack, unspecified Plan: Presents with confusion and expressive aphasia. Previously normal prior to event. MRI brain negative. DW Dr. Valdez. Echo w EF 60% ASA and atorvastatin. Neurology recommending loading clopidogrel x1, then continue for 21 days. 30-day event monitor. Plan Hypothyroidism: levothyroxine BPH: tamsulosin PAD: known carotid stenosis. Follow up with Dr. Durham for follow up. Left < 50% on CTA (was 50-69% on US on 08/07/2023). I discussed with the patient as her [id number] was present at bedside. He feels that the patient is back to his baseline. Medications at Discharge Home Medications losartan 100 mg tablet 100 mg PO DAILY Blood pressure 10/14/15 amlodipine 10 mg tablet 10 mg PO DAILY heart 12/04/18 atorvastatin 40 mg tablet 40 mg PO QHS cholesterol 12/04/18 famotidine 40 mg tablet 40 mg PO BID allergies 12/04/18 levothyroxine 50 mcg tablet 50 mcg PO DAILY thyroid 12/04/18 nitroglycerin 0.4 mg sublingual tablet 0.4 mg sublingual Q5-15M PRN Chest Pain 12/04/18 trazodone 100 mg tablet 200 mg PO QHS for sleep 12/30/19 clonazepam 1 mg tablet 1 mg PO BID PRN Insomnia 07/04/21 aspirin 81 mg tablet,delayed release (Adult Aspirin Regimen) 81 mg PO DAILY 07/11/22 tamsulosin 0.4 mg capsule (Flomax) 0.4 mg PO DAILY 01/05/25 clopidogrel 75 mg tablet 75 mg PO DAILY #21 tabs 01/06/25 Hospital Course Operations None Summary of Care Provided Minutes Spent on Discharge: 35 Hospital Course: Patient experienced acute onset of expressive aphasia and confusion. Symptoms did nevaeh. MRI of the brain was negative. Patient did have CTA of his head and neck that showed a chronically occluded right carotid artery as well as less than 50% stenosis of the left carotids. Patient's symptoms improved and is back to his baseline. Seen by neurology recommends continuing his aspirin but also loading with clopidogrel and then 21 days of study 5 mg of metoprolol. Patient will have 30-day event monitor. Patient to follow-up with neurology as outpatient. Weight / BMI Weight Weight: 73.9 kg Body Mass Index (BMI) 25.4 ABG / Lab / Microbiology Data 01/06/25 06:27 01/06/25 06:27 Laboratory: Laboratory Results - last 24 hr 01/05/25 16:30: WBC 5.9, RBC 3.81 L, Hgb 11.8 L, Hct 36.2 L, MCV 95.0 H, MCH 31.0, MCHC 32.6, RDW Std Deviation 46.9 H, RDW Coeff of Jacky 13.4, Plt Count 137 L, MPV 10.0, Immature Gran % (Auto) 0.300, Neut % (Auto) 85.1 H, Lymph % (Auto) 7.3 L, [place] % (Auto) 5.8, Eos % (Auto) 1.2, Baso % (Auto) 0.3, Absolute Neuts (auto) 5.0, Absolute Lymphs (auto) 0.43 L, Nucleated RBC % 0, PT 14.9, INR 1.1, APTT 27.0, Sodium 137, Potassium 3.4, Chloride 103, Carbon Dioxide 22.5, Anion Gap 12, BUN 14, Creatinine 1.11, Estim Creat Clear Calc 55.08, Est GFR (MDRD) Non-Af 68, BUN/Creatinine Ratio 13.0, Glucose 112 H, Calcium 8.4, Troponin T High Sens 15 01/05/25 20:31: Troponin T Hi Sens 2 Hr 14 01/05/25 22:26: Troponin T Hi Sens 4Hr 16 01/06/25 00:00: Urine Color Yellow, Urine Clarity Clear, Urine pH 7.0, Ur Specific [place] 1.010, Urine Protein Negative, Urine Glucose (UA) Normal, Urine Ketones Negative, Urine Occult Blood 25 H, Urine Nitrite Negative, Urine Bilirubin Negative, Urine Urobilinogen Normal, Ur Leukocyte Esterase Negative, Urine RBC 0-5 SEEN, Urine WBC 0-5 SEEN, Ur Squamous Epith Cells 0 SEEN, Urine Bacteria 0 SEEN, Urine Mucus 0 SEEN 01/06/25 06:27: WBC 5.1, RBC 4.35 L, Hgb 13.3, Hct 39.1 L, MCV 89.9 D, MCH 30.6, MCHC 34.0, RDW Std Deviation 44.4 H, RDW Coeff of Jacky 13.4, Plt Count 157, MPV 10.1, Immature Gran % (Auto) 0.200, Neut % (Auto) 73.8 H, Lymph % (Auto) 13.8 L, [place] % (Auto) 9.5, Eos % (Auto) 2.5, Baso % (Auto) 0.2, Absolute Neuts (auto) 3.8, Absolute Lymphs (auto) 0.71 L, Nucleated RBC % 0, Sodium 141, Potassium 3.4, Chloride 105, Carbon Dioxide 25.6, Anion Gap 11, BUN 9, Creatinine 1.01, Estim Creat Clear Calc 56.36, Est GFR (MDRD) Non-Af 76, BUN/Creatinine Ratio 8.8 L, Glucose 100 H, Hemoglobin A1c 5.5, Calcium 9.0, Triglycerides 85, Cholesterol 135, LDL Cholesterol, Calc 81, VLDL Cholesterol 17, HDL Cholesterol 37 L, Cholesterol/HDL Ratio 3.64, TSH 3.860 Radiography Diagnostic Testing: Radiology Impression Brain CT 01/05/25 16:22 IMPRESSION: No evidence of an acute intracranial abnormality. Consider MRI if there is persistent concern for acute ischemia. The critical information above was relayed directly by me by telephone to Jose Baldwin on 01/05/2025 at 4:34 pm with readback verification. Reading Location: [id number] Head/Neck CTA 01/05/25 16:24 IMPRESSION: 1. No new large vessel occlusion or hemodynamically significant narrowing. 2. 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 Reading Location: [id number] Brain MRI 01/05/25 18:13 IMPRESSION: No acute intracranial abnormality. Reading Location: [facility] Echocardiogram 01/05/25 18:13 Interpretation Summary Normal LV size. Mild concentric left ventricular hypertrophy. Left ventricular systolic function is normal. The left ventricular ejection fraction is 60 %. Stage 1 diastolic dysfunction. Ordering Physician: Sulema Schultz Referring Physician: Heike Payne M.D. Performed By: Roxy Mittal RDCS and Student D/C Instructions Discharge Diet: Low fat / Low cholesterol DC O2, CPAP, BIPAP Needs Home O2 Discharge instructions: No Meaningful Use Info Meaningful Use Meaningful Use Diagnoses (Choose all that apply): Ischemic CVA CVA Therapy Assessed for PT,OT and/or ST?: Yes Ischemic Stroke Antithrombotic order at d/c?: Yes Dx of Atrial fib/flutter?: No Anticoagulant at discharge?: No Reason anticoagulant not ordered: Treatment not Indicated Statin Dosing Therapy Reference: STATIN DOSE THERAPY REFERENCE: * Patients > 75 years receive moderate or high dose statin therapy. * Patients 75 years or YOUNGER should receive HIGH intensity statin dose unless contraindicated. You will be required to document reason for non-treatment if statin daily dose does not meet guidelines. HIGH DOSE STATIN THERAPY DAILY Atorvastatin > than or = to 40 mg Rosuvastatin > than or = to 20 mg Amlodipine + Atorvastatin > than or = to 2.5/40 mg Ezetimibe + Simvastatin 10/80 mg Simvastatin 80mg Statins at discharge?: Yes Primary Dx Acute Ischemic CVA?: Yes IV thrombolytic ordered during stay?: No Reason IV thrombolytic not ordered: Treatment not Indicated Discharge Plan Admission Admit Date/Time: 01/05/25 18:04 Primary Reason for Your Visit: TIA Attending Provider: Harley Martins Primary Care Provider: Heike aPyne Consulting Providers: Skyler Jones; Keren West; Arlyn Li; Vigrie Alex; Gris Valdez; Timbo Pelaez; Angie Hurtado; Roberto Carlos Perez; Galileo Hester; Kwadwo Solis; Estefani Hernandez; Barak Sloer; Melita Potts; Graeme Ricketts; Vijaya Whaley; Madhav Barron; Sarah Butler; Vinny Delaney; Keri Wu; Rojas Berrios; Sulema Schultz Instructions Additional Instructions / Restrictions: He has symptoms concerning for transient ischemic attack (also known as TIA or mini stroke). The treatment will be adding Plavix (clopidogrel) for 21 days. He also have an event monitor, which is a wearable heart monitor to see if you have anything such as atrial fibrillation that may change your blood thinning medication. Do recommend that you do follow-up with neurology as outpatient. Discharge Orders/Prescriptions Prescriptions: New clopidogrel 75 mg tablet 75 mg PO DAILY Qty: 21 0RF Continued atorvastatin 40 mg tablet 40 mg PO QHS levothyroxine 50 mcg tablet 50 mcg PO DAILY amlodipine 10 mg tablet 10 mg PO DAILY nitroglycerin 0.4 mg tablet, sublingual 0.4 mg SUBLINGUAL Q5-15M PRN (Reason: Chest Pain) trazodone 100 mg tablet 200 mg PO QHS clonazepam 1 mg tablet 1 mg PO BID PRN (Reason: Insomnia) losartan 100 MG tablet 100 mg PO DAILY famotidine 40 mg tablet 40 mg PO BID Patient Comments: gerd tamsulosin [Flomax] 0.4 mg capsule 0.4 mg PO DAILY aspirin [Adult Aspirin Regimen] 81 mg tablet,delayed release (DR/EC) 81 mg PO DAILY Other Ambulatory Orders: 30 Day Event Recorder Preventi (Urgent) Timeframe: 1 Day Facility: [facility] - Location: Cardiovascular Services Ordered By: Dr. Harley Martins Referrals / Follow Up: [facility] [Provider Group] - Within 1 Month Heike Payne MD [Primary Care Provider] - Within 2 Weeks Disposition Disposition (needs filled in before D/C Order can be placed): Home, Self Care Charges/Coding Visit Charges Inpatient E&M: 90970 Disch Hosp >30min
--- NOTE | 2025-01-06 14:43 | CASEMGMT ---
Social work did not complete a PHQ 9 as patient did not have a Stroke. Mima GUTIERREZ
--- NOTE | 2025-01-06 15:04 | CASEMGMT ---
Patient has order for discharge. RN CM in to discuss needs at discharge, family at bedside. Family inquring about medical alert, information provided along with CCN information. RN CM incouraged family to attend appointments with PCP and follow-up with neurology as recommended. Patient and family had no further questions or concerns.
--- NOTE | 2025-01-06 15:16 | PHA.DC_ITS ---
Pharmacy [facility] Counseling Pharmacy Service has performed discharge medication reconciliation and counseling for this patient. 1. CLOPIDOGREL 75MG PO DAILY X 21 DAYS The patient's discharge medication list was reviewed for discrepancies and discrepancies were resolved. The patient was counseled on the following discharge medications and changes in medications for homegoing were reviewed. The Reason for Use, instructions for use, and potential side effects were reviewed for all new medications. The patient's questions regarding all of their medications were answered. The patient was able to verbally demonstrate an understanding of their discharge medications. Medications at Discharge Home Medications losartan 100 mg tablet 100 mg PO DAILY Blood pressure 10/14/15 amlodipine 10 mg tablet 10 mg PO DAILY heart 12/04/18 atorvastatin 40 mg tablet 40 mg PO QHS cholesterol 12/04/18 famotidine 40 mg tablet 40 mg PO BID allergies 12/04/18 levothyroxine 50 mcg tablet 50 mcg PO DAILY thyroid 12/04/18 nitroglycerin 0.4 mg sublingual tablet 0.4 mg sublingual Q5-15M PRN Chest Pain 12/04/18 trazodone 100 mg tablet 200 mg PO QHS for sleep 12/30/19 clonazepam 1 mg tablet 1 mg PO BID PRN Insomnia 07/04/21 aspirin 81 mg tablet,delayed release (Adult Aspirin Regimen) 81 mg PO DAILY 07/11/22 tamsulosin 0.4 mg capsule (Flomax) 0.4 mg PO DAILY 01/05/25 clopidogrel 75 mg tablet 75 mg PO DAILY #21 tabs 01/06/25
[2025-01-06] MEDS: Clopidogrel Bisulfate 300 MG Tablet PO (15:56)
== END 2025-01-06 16:43 | disposition home or self-care (01) ==
LOC: ED 17:44 → PCU 18:06
PROVIDERS: Admitting Provider Internal Medicine; Emergency Provider Emergency Medicine; PCP Internal Medicine; Referring Provider Emergency Medicine
DX: G45.9 Transient cerebral ischemic attack, unspecified (principal); J44.9 Chronic obstructive pulmonary disease, unspecified; Z79.890 Hormone replacement therapy; Z79.82 Long term (current) use of aspirin; Z87.891 Personal history of nicotine dependence; I10 Essential (primary) hypertension; R41.0 Disorientation, unspecified; I25.10 Atherosclerotic heart disease of native coronary artery without angina pectoris; E78.5 Hyperlipidemia, unspecified; Z79.02 Long term (current) use of antithrombotics/antiplatelets; R47.81 Slurred speech; R47.01 Aphasia; E03.9 Hypothyroidism, unspecified; Z79.899 Other long term (current) drug therapy; N40.1 Benign prostatic hyperplasia with lower urinary tract symptoms; N13.8 Other obstructive and reflux uropathy; K21.9 Gastro-esophageal reflux disease without esophagitis; Z95.5 Presence of coronary angioplasty implant and graft; I73.9 Peripheral vascular disease, unspecified
CPT/HCPCS: 36415; 70450; 70496; 70498; 70551; 80048; 80061; 81001; 83036; 84443; 84484; 85025; 85610; 85730; 87086; 93005; 93306; 94762; 97161; 97166; 99221; 99285; Q9967; A4216; G0378

== ENCOUNTER → 2025-01-28 | Outpatient (CLI) | payer MEDICARE, OTHER, SELFPAY | END | disposition home or self-care (01) | LOC: PSN 11:44 | PROVIDERS: PCP Internal Medicine; Referring Provider Internal Medicine Cardiovascular Disease; Visit Provider Internal Medicine Cardiovascular Disease | DX: I25.10 Atherosclerotic heart disease of native coronary artery without angina pectoris (principal); Z86.73 Personal history of transient ischemic attack (TIA), and cerebral infarction without residual deficits | CPT/HCPCS: 93225; 93226 ==